=== PATIENT | female | born 1950 | race Caucasian/White ===

== ENCOUNTER 2020-06-22 09:00 | Inpatient (IN) | payer MEDICARE ==
[~2020-06-22] VITALS: Ht 144.8 cm; Wt 96.9 kg
--- NOTE | 2020-06-22 10:59 | NUR ---
NSG NOTE; ADMISSION DIRECT ADMIT TO ROOM 109 AT 1020 VIA W/C ACCOMP BY TRANPORT PERSONNEL ADMITTED TO MED/SURG PUI SCREEN BEFORE ADMISSION TO [facility] FOR BEHAVIOR ISSUES
[2020-06-22 11:07] VITALS: BP 110/67
[2020-06-22] MEDS ORDERED: DENO60DI SQ (12:01)
[2020-06-22] MEDS ORDERED: ERGOCALCIFEROL PO (12:01)
[2020-06-22] MEDS ORDERED: PHEN50TA3 PO (12:01)
[2020-06-22] MEDS ORDERED: METO5TAB4 PO (12:01)
[2020-06-22] MEDS ORDERED: POTA20TA4 PO (12:01)
[2020-06-22] MEDS ORDERED: CALC-98 PO (12:01)
[2020-06-22] MEDS ORDERED: PHEN100C PO (12:01)
[2020-06-22] MEDS ORDERED: POLY2500 PO (12:01)
[2020-06-22] MEDS ORDERED: MULT-505 PO (12:01)
[2020-06-22] MEDS ORDERED: SENN8.6T99 PO (12:01)
[2020-06-22] MEDS ORDERED: MELA1TAB11 PO (12:01)
[2020-06-22] MEDS ORDERED: CETI10TA16 PO (12:01)
[2020-06-22] MEDS ORDERED: BUME1TAB3 PO (12:01)
[2020-06-22] MEDS ORDERED: ACET500T68 PO (12:01)
[2020-06-22] MEDS ORDERED: DOCU100C28 PO (12:01)
[2020-06-22] MEDS ORDERED: FURO40TA4 PO (12:01)
[2020-06-22] MEDS ORDERED: SERT25TA PO (12:01)
[2020-06-22] MEDS ORDERED: OMEG100021 PO (12:01)
[2020-06-22] MEDS ORDERED: ACET325T21 PO (12:01)
[2020-06-22] MEDS ORDERED: LEVO50TA5 PO (12:01)
[2020-06-22] MEDS ORDERED: ASPI81TA59 PO (12:01)
[2020-06-22 15:00] VITALS: BP 126/60
[2020-06-22] MEDS ORDERED: ACETAMINOPHEN 325 MG TABLET PO PRN (16:00)
[2020-06-22 17:29] LABS: BASO % 1 % (0-3); EOS # 0.1 x10^3/uL (0.0-0.7); EOS % 1 % (0-3); HEMATOCRIT 32.8 % (36.0-47.0); HEMOGLOBIN 11.1 g/dL (12.0-15.5); LYMPH # 1.5 x10^3/uL (1.0-4.8); LYMPH % 25 % (24-48); MEAN CORPUSCULAR HEMOGLOBIN 33 pg (25-35); MEAN CORPUSCULAR HGB CONC 34 g/dL (31-37); MEAN CORPUSCULAR VOLUME 98 fL (79-100); MONO # 0.6 x10^3/uL (0.0-1.1); MONO % 10 % (0-9); NEUT # 3.8 x10^3uL (1.8-7.7); NEUT % 64 % (31-73); PLATELET COUNT 250 x10^3/uL (140-400); RED BLOOD COUNT 3.35 x10^6/uL (3.50-5.40); RED CELL DISTRIBUTION WIDTH 13.2 % (11.5-14.5)
[2020-06-22 17:44] LABS: ALBUMIN 2.9 g/dL (3.4-5.0); ALBUMIN/GLOBULIN RATIO 0.8 (1.0-1.7); CREATININE 0.6 mg/dL (0.6-1.0); GFR 99.1; POTASSIUM 3.5 mmol/L (3.5-5.1); TOTAL BILIRUBIN 0.2 mg/dL (0.2-1.0); TOTAL PROTEIN 6.6 g/dL (6.4-8.2)
[2020-06-22 19:40] VITALS: BP 104/65
--- NOTE | 2020-06-22 20:23 | HP ---
ADMIT DATE: 06/22/2020 HISTORY OF PRESENT ILLNESS: The patient is a 70-year-old female patient who has lifelong intellectual disability and has been a patient at [facility] for over 2 years. She has never had any problem with mood or behavior during that time and has only received melatonin to assist with sleep. The only issue which is different for the patient is that she is unable to have frequent contact with her family as she had had in the past due to COVID-19 restriction. She began engaging in behaviors which is new for her. This includes going to other patient's rooms while they are asleep and picking candy out of their chest. It is apparent that the patient knows that this is where the candy is kept and she has been found repeating this behavior several times. She also has been lifting up her shirt and was found buttoning her blouse in front of a male peer. The record also noted that she had had an angry verbal altercation for which they seems to be unprovoked. She attempts to transfer without assistance. She has been also gaining weight and staff are attempting to curb high caloric foods and drinks to reduce this. It appears that she sometimes mimics behavior of other residents, rolling wheelchair into other's rooms, following the resident whatever room it is. She has been recently going off on other residents for no apparent reason. She apparently complies when redirected by staff but then repeats the behavior which has been corrected. Apparently, it was not clear whether these behaviors are done covertly or if she does them openly inviting attention and correction. She has minimal verbal skills related to her intellectual disability, but generally can answer yes and no questions. Because of this newer behavior, she was admitted to [address] [place] [address] in [facility] to be screened for COVID-19 before ultimately she goes up to [facility] for inpatient psychiatric stabilization. The patient herself does not really give any useful information. PAST MEDICAL HISTORY: Significant for epilepsy that is not intractable, has abnormal gait and mobility. Vitamin B12 deficiency. She has acute posthemorrhagic anemia, hypothyroidism, vitamin D deficiency, age-related physical debility, hyperlipidemia, pervasive developmental disorder, seasonal allergic rhinitis, muscle weakness, difficulty walking, cognitive communication deficit, dysarthria and anarthria and nondisplaced subtrochanteric fracture of the left femur, initial encounter. She also has fracture of the lower end of the left femur, acute pain due to trauma and fracture of the unspecified carpal bone, right wrist. The patient has open reduction of hip fracture, status post open reduction and internal fixation. FAMILY HISTORY: Noncontributory. SOCIAL HISTORY: She is a resident at [facility]. She never smoked, does not drink alcohol or use any recreational drugs. ALLERGIES: She has no known drug allergies. MEDICATIONS: She is currently on following medications: She is on cetirizine 5 mg daily, omega-3 fatty acid 1000 mg once a day, aspirin 81 mg once a day, acetaminophen 650 mg every 4 hours, phenytoin 50 mg daily, phenytoin sodium extended release 100 mg twice a day. She is on sertraline, Zoloft 25 mg once a day, calcium carbonate with vitamin D one tablet once a day, potassium chloride 20 mEq twice a day, bumetanide 1 mg daily, furosemide 40 mg twice a day, metolazone 5 mg Tuesday, Tuesday, Tuesday. She is on Colace 100 mg every other day, senna 1 tablet twice a day. She is on levothyroxine sodium 50 mcg once a day, multivitamin 1 tablet once a day, melatonin/pyridoxine one tablet at bedtime. She is also on Prolia 60 mg in 1 mL syringe subcutaneously every 6 month. She is also on MiraLax 17 grams daily. PHYSICAL EXAMINATION: GENERAL: On examining her, she looked somewhat pale, but no jaundice, cyanosis or thyromegaly. No jugular venous distention but marked bilateral lower limb edema. VITAL SIGNS: Her heart rate was 79, blood pressure was 110/67, temperature 97.9, respiratory rate 20, and oxygen saturation was 96% on room air. HEAD, EYES, EARS, NOSE AND THROAT: Showed normocephalic, atraumatic. NECK: Supple. HEART: Showed normal first and second heart sounds. No gallop, rub or murmur. CHEST: Clear to auscultation. No crepitation or rhonchi. ABDOMEN: Distended, soft, nontender. NEUROLOGIC: She has obviously intellectual disabilities. She is unable to keep conversation. She only answers occasionally yes or no answers. All her cranial nerves seem to be grossly intact. She moves upper extremities to much greater extent than lower extremities. She is mostly wheelchair bound. LABORATORY DATA: Her most recent lab work as of 06/20/2020 showed her white cell count to be 6700, hemoglobin 12, hematocrit 36, MCV 99 and platelet count of 264,000 with normal manual differential. Her chemistry showed serum sodium of 141, potassium 3.7, chloride 102, bicarbonate 26, anion gap of 17, BUN 24, creatinine 0.64. Estimated GFR was 98 mL per minute. Her glucose was 131, calcium was 8.9. Total bilirubin 0.15. Her AST, ALT, alkaline phosphatase were normal. Total protein 7.1, albumin 3.4, globulin 3.7. ASSESSMENT AND PLAN: In summary, this is a 70-year-old female patient, a resident at [facility], who is here in [place] of [facility] to be screened for COVID-19 and once it is negative, the patient will be ultimately transferred to [facility] for inpatient psychiatric stabilization given the behavioral changes that started apparently recently. IVETH CHANDLER MD DR: SHERWIN/brendan JOB#: [id number] / [id number]
[2020-06-22] MEDS: ACETAMINOPHEN 500 MG TABLET PO SCH (20:53)
[2020-06-22] MEDS: PHENYTOIN SODIUM EXTENDED 100 MG CAPSULE PO SCH (20:53)
[2020-06-22] MEDS: MELATONIN 3 MG TABLET PO SCH (20:54)
[2020-06-22] MEDS: POTASSIUM CHLORIDE 20 MEQ TABLET.ER. PO SCH (20:54)
[2020-06-22] MEDS: SENNOSIDES 8.6 MG TABLET PO SCH (20:54)
[2020-06-23 05:33] VITALS: BP 134/71
[2020-06-23] MEDS ORDERED: LEVOTHYROXINE 50 MCG TABLET PO SCH (06:00)
[2020-06-23] MEDS: POTASSIUM CHLORIDE 20 MEQ TABLET.ER. PO SCH ×2 (08:56→20:57)
[2020-06-23] MEDS: ACETAMINOPHEN 500 MG TABLET PO SCH ×2 (08:57→20:57)
[2020-06-23] MEDS: SENNOSIDES 8.6 MG TABLET PO SCH ×2 (08:57→20:57)
[2020-06-23] MEDS: FUROSEMIDE 40 MG TABLET PO SCH ×2 (08:57→13:58)
[2020-06-23] MEDS: PHENYTOIN SODIUM EXTENDED 100 MG CAPSULE PO SCH ×2 (08:58→20:56)
[2020-06-23] MEDS ORDERED: PHENYTOIN 50 MG TAB.CHEW PO SCH (09:00)
[2020-06-23] MEDS ORDERED: OMEGA-3 FATTY ACIDS/FISH OIL 1,000 MG CAPSULE. PO SCH (09:00)
[2020-06-23] MEDS ORDERED: MULTIVITAMIN with MINERAL TABLET. PO SCH (09:00)
[2020-06-23] MEDS ORDERED: ASPIRIN CHEWABLE 81 MG TABLET. PO SCH (09:00)
[2020-06-23] MEDS ORDERED: SERTRALINE 25 MG TABLET. PO SCH (09:00)
[2020-06-23] MEDS ORDERED: CALCIUM CARB/VIT D3 500/200 TABLET PO SCH (09:00)
[2020-06-23] MEDS ORDERED: CETIRIZINE HCL 10 MG TABLET PO SCH (09:00)
[2020-06-23] MEDS ORDERED: POLYETHYLENE GLYCOL 3350 17 GM PACKET. PO SCH (09:00)
[2020-06-23 10:51] VITALS: BP 125/67
[2020-06-23 15:00] VITALS: BP 128/65
[2020-06-23 15:11] LABS: THYROID STIM HORMONE (TSH) 1.825 uIU/mL (0.358-3.740)
[2020-06-23] MEDS ORDERED: metOLazone 5 MG TABLET PO SCH (16:00)
--- NOTE | 2020-06-23 19:12 | PN ---
DATE: 06/23/2020 SUBJECTIVE: The patient is resting, slightly propped up in bed, eating her lunch, in no apparent distress. She is mostly nonverbal and has a lifelong intellectual disability, who was basically admitted to [address] [place] [address] to be screened for COVID-19 before she goes to [facility] for inpatient psychiatric stabilization. She has been displaying abnormal behavior, which are new including going to other patient's rooms while they are asleep and picking the candy out of their drawers. She has been also lifting up her shirt and was found buttoning her blouse in front of a male peer. She has reportedly being angry with verbal altercation for which there seems no provocation. She has been attempting to transfer without assistance. She also has been gaining weight and staff are attempting to curb high caloric foods and drinks to reduce this. PHYSICAL EXAMINATION: GENERAL: When I saw her today, she was resting slightly propped up in bed, in no apparent distress, somewhat pale. No jaundice, cyanosis or thyromegaly. No jugular venous distention. No limb edema. VITAL SIGNS: Her heart rate was 66, blood pressure was 134/71, temperature was 97.5, respiratory rate 20, and oxygen saturation was 100% on room air. HEAD, EYES, EARS, NOSE AND THROAT: Showed normocephalic, atraumatic. NECK: Supple. HEART: Showed normal first and second heart sounds. No gallop, rub or murmur. CHEST: Clear to auscultation. No crepitation or rhonchi. ABDOMEN: Distended, soft, nontender. NEUROLOGIC: She has lifelong intellectual disability; however, all her cranial nerves are intact. She moves upper extremities to much good extent than lower extremities, mostly bedbound. LABORATORY DATA: Her lab work showed a white cell count of 6000, hemoglobin 11, hematocrit 33, MCV 98, and platelet count 250,000 with normal manual differential. Her chemistry showed a serum sodium of 141, potassium 3.5, chloride 103, bicarbonate was 33, anion gap of 5, BUN 21, creatinine 0.6, estimated GFR was 99 mL per minute. Her glucose was 100, calcium was 9. Total bilirubin, AST, ALT, alkaline phosphatase were normal. Total protein 6.6, albumin 2.9. Her D-dimer was 0.55 mg/dL. ASSESSMENT AND PLAN: In summary, this is a 70-year-old female patient, resident at [facility], who is here in [facility] [place] of [facility] to be screened for COVID-19. She was swabbed and the results of which is still pending at the time of this dictation. Once the test becomes available and she is negative, she will be transferred to [facility] for inpatient psychiatric stabilization. IVETH CHANDLER MD DR: SHERWIN/brendan JOB#: [id number] / [id number]
[2020-06-23] MEDS ORDERED: HYDROcodone/APAP 5/325MG 1 TAB TABLET PO PRN (19:45)
[2020-06-23 20:03] VITALS: BP 133/72
[2020-06-23] MEDS: MELATONIN 3 MG TABLET PO SCH (20:57)
[2020-06-24 00:07] LABS: HEMOGLOBIN A1C 5.3 % (4.8-5.6)
--- NOTE | 2020-06-24 06:43 | EKG ---
[address] [address] Test Date: 2020-06-23 Test Time: 22:02:01 Pat Name: LEROY BAHENA Department: Room: 109 A Gender: F [employer] Lead: : 1950 Requested By: IVETH CHANDLER Order Number: [id number] Reading MD: Measurements Intervals [place] Rate: 67 P: 60 IA: 158 QRS: 1 QRSD: 108 T: 21 QT: 402 QTc: 428 Interpretive Statements SINUS RHYTHM R-S TRANSITION ZONE IN V LEADS DISPLACED TO THE RIGHT RVH WITH REPOLARIZATION ABNORMALITY QRS(T) CONTOUR ABNORMALITY CONSIDER INFERIOR MYOCARDIAL DAMAGE ABNORMAL ECG RI6.01 No previous ECG available for comparison
[2020-06-24] MEDS ORDERED: DOCUSATE SODIUM 100 MG CAPSULE PO SCH (09:00)
[2020-06-29] MEDS ORDERED: CHOLECALCIFEROL (VITAMIN D3) 50,000 UNIT CAPSULE PO SCH (09:00)
== END 2020-06-23 22:35 | DRG 884 ==
LOC: 1 SOUTH 09:00
PROVIDERS: ADMIT Internal Medicine; ATTEND Internal Medicine
DX: F79 Unspecified intellectual disabilities (principal); D62 Acute posthemorrhagic anemia; E03.9 Hypothyroidism, unspecified; F84.9 Pervasive developmental disorder, unspecified; E78.5 Hyperlipidemia, unspecified; R54 Age-related physical debility; Z20.828 Contact with and (suspected) exposure to other viral communicable diseases; Z99.3 Dependence on wheelchair; Z74.01 Bed confinement status; E55.9 Vitamin D deficiency, unspecified; E53.8 Deficiency of other specified B group vitamins; J30.2 Other seasonal allergic rhinitis
CPT/HCPCS: 36415; 80053; 80061; 82306; 82607; 83036; 84443; 85025; 85379; 86780; 93005; U0003

== ENCOUNTER 2020-06-23 23:25 | Inpatient (IN) | payer MEDICARE ==
[~2020-06-23] VITALS: Ht 147.3 cm; Wt 93.1 kg
--- NOTE | 2020-06-23 23:00 | NUR ---
Admission Note with Justification for Admission to [facility] Patient admitted to [facility] for protective oversight for emergency stabilization of acute psychiatric crisis. Pt admitted from: [facility] [place] Mode of arrival: Bed with [facility] staff Accompanied By: [facility] Staff Precipitating behaviors that initiated intake and admission: Aggressive behaviors at SNF Description of failure of out patient attempts at stabilization in previous setting list behavior and medication trials: Redirection, medication changes Behaviors and assessment findings upon admission: Responds to name. Grunts and yells with cares Plan: Admit for protective oversight for adjustment and stabilization of medications, behaviors and mood. Intense treatment regimen including groups, medication adjustments, therapy, consistent regimen for ADL's, self care, and sleep hygiene. Daily monitoring by Inpatient staff, Psychiatry, and Medical Physician.
--- NOTE | 2020-06-23 23:10 | NUR ---
Straight cath done for UA and specimen to lab, pt tolerated well.
[~2020-06-23 23:25] MED LIST: ACET325T21 PO; ACET500T68 PO; ASPI81TA59 PO; BUME1TAB3 PO; CALC-98 PO; CETI10TA16 PO; DENO60DI SQ; DOCU100C28 PO; ERGOCALCIFEROL PO; FURO40TA4 PO; LEVO50TA5 PO; MELA1TAB11 PO; METO5TAB4 PO; MULT-505 PO; OMEG100021 PO; PHEN100C PO; PHEN50TA3 PO; POLY2500 PO; POTA20TA4 PO; SENN8.6T99 PO; SERT25TA PO
[2020-06-23 23:40] VITALS: BP 121/66
[2020-06-23 23:47] LABS: CLARITY,URINE HAZY; COLOR,URINE YELLOW
[2020-06-23 23:50] LABS: BACTERIA,URINE FEW /HPF (0-FEW); BILIRUBIN,URINE NEG (NEG); GLUCOSE,URINE NEG (NEG); NITRITE,URINE NEG (NEG); RBC,URINE OCC /HPF (0-2); SQUAMOUS EPITHELIAL CELL,UR MANY /LPF; UROBILINOGEN,URINE 0.2 mg/dL (0.2 mg/dL); WBC,URINE OCC /HPF (0-4)
[2020-06-24] MEDS ORDERED: MAG HYDROX/AL HYDROX/SIMETH 30 ML ORAL.SUSP PO PRN (00:30)
[2020-06-24] MEDS ORDERED: ACETAMINOPHEN 325 MG TABLET PO PRN (00:30)
[2020-06-24] MEDS ORDERED: MAGNESIUM HYDROXIDE 2,400 MG/30 ML ORAL.SUSP. PO PRN (00:30)
[2020-06-24] MEDS: LEVOTHYROXINE 50 MCG TABLET PO SCH (06:24)
[2020-06-24] MEDS: SENNOSIDES 8.6 MG TABLET PO SCH ×2 (09:00→20:09)
[2020-06-24] MEDS: CETIRIZINE HCL 10 MG TABLET PO SCH (09:00)
[2020-06-24] MEDS: FUROSEMIDE 40 MG TABLET PO SCH ×2 (09:00→16:23)
[2020-06-24] MEDS: BUMETANIDE 1 MG TABLET PO SCH (09:00)
[2020-06-24] MEDS: POLYETHYLENE GLYCOL 3350 17 GM PACKET. PO SCH (09:00)
--- NOTE | 2020-06-24 10:30 | NUR ---
ACTIVITY THERAPY ASSESSMENT Completed based on observation and attempted interview. Pt. goes by "Cate Shukla" but has difficulty engaging in conversation: barely responded to yes/ no questions or even her name. She often grunts or yells out which can be disruptive to others and she struggles to keep attention/ focus which may improve in a more quiet and controlled setting. Pt. wanders the unit by propelling herself in her wheelchair and she struggles to wear her mask correctly. Pt. finds alternative ways of communicating her needs/ preference/ desires with motions and grunts. Initial goal aimed to increase engagement and focus/ attention: Pt. will participate in at least one individual Activity Therapy session for at least ten minutes, before discharge. Addendum: 06/26/20 at 1019 by RENETTA BERMUDEZ ACT Goal changed 06/26: Pt. will participate in at least one individual Activity Therapy session for at least ten minutes, fully, before discharge.
[2020-06-24] MEDS: ACETAMINOPHEN 500 MG TABLET PO SCH ×2 (10:49→20:09)
[2020-06-24] MEDS: PHENYTOIN 50 MG TAB.CHEW PO SCH (10:49)
[2020-06-24] MEDS: DOCUSATE SODIUM 100 MG CAPSULE PO SCH (10:49)
[2020-06-24] MEDS: CHOLECALCIFEROL (VITAMIN D3) 50,000 UNIT CAPSULE PO SCH (10:50)
[2020-06-24] MEDS: MULTIVITAMIN with MINERAL TABLET. PO SCH (10:50)
[2020-06-24] MEDS: CALCIUM CARB/VIT D3 500/200 TABLET PO SCH (10:50)
[2020-06-24] MEDS: PHENYTOIN SODIUM EXTENDED 100 MG CAPSULE PO SCH ×2 (10:50→20:09)
[2020-06-24] MEDS: ASPIRIN CHEWABLE 81 MG TABLET. PO SCH (10:50)
[2020-06-24] MEDS: SERTRALINE 25 MG TABLET. PO SCH (10:50)
[2020-06-24] MEDS: OMEGA-3 FATTY ACIDS/FISH OIL 1,000 MG CAPSULE. PO SCH (10:50)
[2020-06-24] MEDS: POTASSIUM CHLORIDE 20 MEQ TABLET.ER. PO SCH ×2 (10:51→20:09)
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
[2020-06-24 16:01] VITALS: BP 147/83
--- NOTE | 2020-06-24 20:52 | PDOC ---
Exam Note: Brooks Note: Please also refer to the separate dictated note~for this date of service dictated separately.~Patient seen individually. Discussed the patient with Nursing staff reviewed the chart.~Reviewed interim history and current functioning. Reviewed vital signs,~Labs/ Radiology~and current medications noted below. Continue current treatment with the changes noted in the dictated addendum note Assessment: Vital Signs/I&O: Vital Signs Date Time Temp Pulse Resp B/P (MAP) Pulse Ox O2 Delivery O2 Flow Rate FiO2 06/24/20 16:01 97.9 72 20 147/83 (104) 100 06/23/20 23:40 Room Air Labs: Laboratory Tests Test 06/23/20 23:20 06/24/20 06:47 Urine Collection Type U cath Urine Color Yellow Urine Clarity Hazy Urine pH 8.0 Urine Specific Powell 1.020 Urine Protein Neg (NEG-TRACE) Urine Glucose (UA) Neg mg/dL (NEG) Urine Ketones (Stick) Neg mg/dL (NEG) Urine Blood Small (NEG) Urine Nitrite Neg (NEG) Urine Bilirubin Neg (NEG) Urine Urobilinogen Dipstick 0.2 mg/dL (0.2 mg/dL) Urine Leukocyte Esterase Trace (NEG) Urine RBC Occ /HPF (0-2) Urine WBC Occ /HPF (0-4) Urine Squamous Epithelial Cells Many /LPF Urine Bacteria Few /HPF (0-FEW) D-Dimer (Arlene) 0.58 mg/L (0.00-0.50) H Iron Level 92 ug/dL (50-170) Total Iron Binding Capacity 229 ug/dL (250-450) L Iron Saturation 40 % (15-34) H Vitamin B12 Level 325 pg/mL (247-911) 25-Hydroxy Vitamin D Total 58.8 ng/mL (30-100) Treponema pallidum Antibody Nonreactive (Nonreactive) Current Medications: Meds: Current Medications Medications (Trade) Dose Ordered Sig/Kassidy Route PRN Reason Start Time Stop Time Status Last Admin Dose Admin Acetaminophen (Tylenol) 500 mg BID PO 06/24/20 09:00 06/24/20 20:09 Aspirin (Aspirin Chewable) 81 mg DAILY PO 06/24/20 09:00 06/24/20 10:50 Bumetanide (Bumex) 1 mg DAILY PO 06/24/20 09:00 06/24/20 09:00 Cetirizine HCl (ZyrTEC) 5 mg DAILY PO 06/24/20 09:00 06/24/20 09:00 Docusate Sodium (Colace) 100 mg QODAY PO 06/24/20 09:00 06/24/20 10:49 Furosemide (Lasix) 40 mg BID92 PO 06/24/20 09:00 06/24/20 16:23 Levothyroxine Sodium (Synthroid) 50 mcg DAILY06 PO 06/24/20 06:00 06/24/20 06:24 Phenytoin Sodium (Dilantin) 50 mg DAILY PO 06/24/20 09:00 06/24/20 10:49 Phenytoin Sodium (Dilantin) 100 mg BID PO 06/24/20 09:00 06/24/20 20:09 Potassium Chloride (Klor-Con) 20 meq BID PO 06/24/20 09:00 06/24/20 20:09 Sennosides (Senna) 8.6 mg BID PO 06/24/20 09:00 06/24/20 20:09 Sertraline HCl (Zoloft) 25 mg DAILY PO 06/24/20 09:00 06/24/20 10:50 Calcium/Vitamin D (Oscal D 500mg/ 200uts) 1 tab DAILY PO 06/24/20 09:00 06/24/20 10:50 Multivitamins/ Calcium (Thera-M Plus) 1 tab DAILY PO 06/24/20 09:00 06/24/20 10:50 Fish Oil (Fish Oil) 1,000 mg DAILY PO 06/24/20 09:00 06/24/20 10:50 Polyethylene Glycol (miraLAX) 17 gm DAILY PO 06/24/20 09:00 06/24/20 09:00 Vitamin D (Vitamin D3) 50,000 unit WEEKLY PO 06/24/20 09:00 06/24/20 10:50 I have reviewed the current psychotropics carefully including drug interactions. Risk benefit ratio favors no change other than as noted in my dictated progress note. Diagnosis: Problems: (1) Person under investigation for COVID-19 (2) Impulse control disorder, unspecified GAMALIEL MALLOY MD Jun 24, 2020 20:52
--- NOTE | 2020-06-24 23:07 | NUR ---
Nursing Note The patient was drowsy, withdrawn and compliant this shift. The patient was unable to answer assessment questions but responds to name. The patient took her medication whole. The patient opened her eyes and made some garbled noises but was unable to meaningfully interact with this nurse during her assessment.
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
[2020-06-25 05:44] VITALS: BP 127/72
[2020-06-25] MEDS: LEVOTHYROXINE 50 MCG TABLET PO SCH (05:55)
[2020-06-25 07:01] LABS: BASO # 0.1 x10^3/uL (0.0-0.2); BASO % 1 % (0-3); EOS # 0.1 x10^3/uL (0.0-0.7); EOS % 2 % (0-3); HEMATOCRIT 31.2 % (36.0-47.0); HEMOGLOBIN 10.4 g/dL (12.0-15.5); LYMPH # 1.3 x10^3/uL (1.0-4.8); LYMPH % 29 % (24-48); MEAN CORPUSCULAR HEMOGLOBIN 33 pg (25-35); MEAN CORPUSCULAR HGB CONC 33 g/dL (31-37); MEAN CORPUSCULAR VOLUME 99 fL (79-100); MONO # 0.3 x10^3/uL (0.0-1.1); MONO % 8 % (0-9); NEUT # 2.6 x10^3uL (1.8-7.7); NEUT % 59 % (31-73); PLATELET COUNT 242 x10^3/uL (140-400); RED BLOOD COUNT 3.16 x10^6/uL (3.50-5.40); WHITE BLOOD COUNT 4.4 x10^3/uL (4.0-11.0)
[2020-06-25 07:12] LABS: ALBUMIN 2.7 g/dL (3.4-5.0); ALBUMIN/GLOBULIN RATIO 0.7 (1.0-1.7); CALCIUM 7.6 mg/dL (8.5-10.1); CREATININE 0.5 mg/dL (0.6-1.0); GFR 122.3; MAGNESIUM 2.3 mg/dL (1.8-2.4); PHENY 6.1 mcg/mL (10.0-20.0); POTASSIUM 3.4 mmol/L (3.5-5.1); TOTAL BILIRUBIN 0.2 mg/dL (0.2-1.0); TOTAL PROTEIN 6.4 g/dL (6.4-8.2)
[2020-06-25] MEDS: POLYETHYLENE GLYCOL 3350 17 GM PACKET. PO SCH (09:09)
[2020-06-25] MEDS: POTASSIUM CHLORIDE 20 MEQ TABLET.ER. PO SCH ×2 (09:09→19:38)
[2020-06-25] MEDS: PHENYTOIN 50 MG TAB.CHEW PO SCH (09:09)
[2020-06-25] MEDS: BUMETANIDE 1 MG TABLET PO SCH (09:10)
[2020-06-25] MEDS: OMEGA-3 FATTY ACIDS/FISH OIL 1,000 MG CAPSULE. PO SCH (09:10)
[2020-06-25] MEDS: MULTIVITAMIN with MINERAL TABLET. PO SCH (09:10)
[2020-06-25] MEDS: CALCIUM CARB/VIT D3 500/200 TABLET PO SCH (09:10)
[2020-06-25] MEDS: ACETAMINOPHEN 500 MG TABLET PO SCH ×2 (09:10→19:38)
[2020-06-25] MEDS: CETIRIZINE HCL 10 MG TABLET PO SCH (09:10)
[2020-06-25] MEDS: ASPIRIN CHEWABLE 81 MG TABLET. PO SCH (09:10)
[2020-06-25] MEDS: PHENYTOIN SODIUM EXTENDED 100 MG CAPSULE PO SCH ×2 (09:10→19:38)
[2020-06-25] MEDS: SERTRALINE 25 MG TABLET. PO SCH (09:11)
[2020-06-25] MEDS: SENNOSIDES 8.6 MG TABLET PO SCH ×2 (09:11→19:38)
[2020-06-25] MEDS: FUROSEMIDE 40 MG TABLET PO SCH ×2 (09:11→14:25)
[2020-06-25 15:42] VITALS: BP 147/70
--- NOTE | 2020-06-25 16:18 | NUR ---
Nursing note: Pt has been pleasant, compliant with meds whole and cooperative this shift. Pt does not appear to be in any pain or discomfort. She does not verbalize, only grunts and points. Occasionally she has been heard counting from 1-10, but will not answer questions when asked. She has been wheeling herself around the unit for most of the shift. She is currently resting quietly in bed. Will continue to monitor.
[2020-06-25] MEDS: metOLazone 5 MG TABLET PO SCH (16:54)
[2020-06-25 21:11] LABS: HEMOGLOBIN A1C 5.3 % (4.8-5.6)
--- NOTE | 2020-06-25 21:46 | NUR ---
Nursing Note: Pt up in w/c, propelling in her room at shift change. Pt calm, mostly non-verbal- grunting and pointing in order to make her needs known, responding to name. Pt cooperative with assessment and compliant with medications administered whole. No agitation or aggression noted thus far this shift.
--- NOTE | 2020-06-25 21:56 | PDOC ---
Exam Note: Brooks Note: Please also refer to the separate dictated note~for this date of service dictated separately.~Patient seen individually. Discussed the patient with Nursing staff reviewed the chart.~Reviewed interim history and current functioning. Reviewed vital signs,~Labs/ Radiology~and current medications noted below. Continue current treatment with the changes noted in the dictated addendum note Assessment: Vital Signs/I&O: Vital Signs Date Time Temp Pulse Resp B/P (MAP) Pulse Ox O2 Delivery O2 Flow Rate FiO2 06/25/20 15:42 97.0 70 18 147/70 (95) 92 06/23/20 23:40 Room Air I & O 06/24/20 06/24/20 06/25/20 15:00 23:00 07:00 Intake Total 720 ml 340 ml Balance 720 ml 340 ml Labs: Laboratory Tests Test 06/25/20 06:40 White Blood Count 4.4 x10^3/uL (4.0-11.0) Red Blood Count 3.16 x10^6/uL (3.50-5.40) L Hemoglobin 10.4 g/dL (12.0-15.5) L Hematocrit 31.2 % (36.0-47.0) L Mean Corpuscular Volume 99 fL (79-100) Mean Corpuscular Hemoglobin 33 pg (25-35) Mean Corpuscular Hemoglobin Concent 33 g/dL (31-37) Red Cell Distribution Width 13.0 % (11.5-14.5) Platelet Count 242 x10^3/uL (140-400) Neutrophils (%) (Auto) 59 % (31-73) Lymphocytes (%) (Auto) 29 % (24-48) Monocytes (%) (Auto) 8 % (0-9) Eosinophils (%) (Auto) 2 % (0-3) Basophils (%) (Auto) 1 % (0-3) Neutrophils # (Auto) 2.6 x10^3uL (1.8-7.7) Lymphocytes # (Auto) 1.3 x10^3/uL (1.0-4.8) Monocytes # (Auto) 0.3 x10^3/uL (0.0-1.1) Eosinophils # (Auto) 0.1 x10^3/uL (0.0-0.7) Basophils # (Auto) 0.1 x10^3/uL (0.0-0.2) Sodium Level 140 mmol/L (136-145) Potassium Level 3.4 mmol/L (3.5-5.1) L Chloride Level 103 mmol/L (98-107) Carbon Dioxide Level 30 mmol/L (21-32) Anion Gap 7 (6-14) Blood Urea Nitrogen 17 mg/dL (7-20) Creatinine 0.5 mg/dL (0.6-1.0) L Estimated GFR (Cockcroft-Gault) 122.3 BUN/Creatinine Ratio 34 (6-20) H Glucose Level 96 mg/dL (70-99) Hemoglobin A1c 5.3 % (4.8-5.6) Calcium Level 7.6 mg/dL (8.5-10.1) L Magnesium Level 2.3 mg/dL (1.8-2.4) Total Bilirubin 0.2 mg/dL (0.2-1.0) Aspartate Amino Transferase (AST) 18 U/L (15-37) Alanine Aminotransferase (ALT) 24 U/L (14-59) Alkaline Phosphatase 66 U/L (46-116) Total Protein 6.4 g/dL (6.4-8.2) Albumin 2.7 g/dL (3.4-5.0) L Albumin/Globulin Ratio 0.7 (1.0-1.7) L Phenytoin (Dilantin) Level 6.1 mcg/mL (10.0-20.0) L Phenytoin Last Dose Date 06/24/20 Phenytoin Last Dose Time 2014 Current Medications: Meds: Current Medications Medications (Trade) Dose Ordered Sig/Kassidy Route PRN Reason Start Time Stop Time Status Last Admin Dose Admin Metolazone (Zaroxolyn) 5 mg QMWF PO 06/25/20 16:00 06/25/20 16:54 I have reviewed the current psychotropics carefully including drug interactions. Risk benefit ratio favors no change other than as noted in my dictated progress note. Diagnosis: Problems: (1) Major neurocognitive disorder, due to vascular disease, with behavioral disturbance, mild (2) Dementia in Alzheimer's disease with delusions (3) Dementia in Alzheimer's disease with depression (4) Dementia, vascular, with depression (5) Dementia, vascular, with delusions (6) MDD (major depressive disorder) (7) Anxiety disorder, unspecified GAMALIEL MALLOY MD Jun 25, 2020 21:56
[2020-06-26] MEDS: ACETAMINOPHEN 325 MG TABLET PO PRN (04:28)
[2020-06-26] MEDS: LEVOTHYROXINE 50 MCG TABLET PO SCH (04:28)
[2020-06-26] MEDS: METHYL SALICYLATE/MENTHOL TOPICAL OINTMENT 57GM TUBE. TP PRN (04:28)
[2020-06-26 06:08] VITALS: BP 120/65
[2020-06-26] MEDS: OMEGA-3 FATTY ACIDS/FISH OIL 1,000 MG CAPSULE. PO SCH (08:52)
[2020-06-26] MEDS: PHENYTOIN 50 MG TAB.CHEW PO SCH (08:52)
[2020-06-26] MEDS: MULTIVITAMIN with MINERAL TABLET. PO SCH (08:52)
[2020-06-26] MEDS: ASPIRIN CHEWABLE 81 MG TABLET. PO SCH (08:52)
[2020-06-26] MEDS: FUROSEMIDE 40 MG TABLET PO SCH ×2 (08:53→14:00)
[2020-06-26] MEDS: POTASSIUM CHLORIDE 20 MEQ TABLET.ER. PO SCH ×2 (08:53→19:50)
[2020-06-26] MEDS: CETIRIZINE HCL 10 MG TABLET PO SCH (08:53)
[2020-06-26] MEDS: ACETAMINOPHEN 500 MG TABLET PO SCH ×2 (08:53→19:50)
[2020-06-26] MEDS: PHENYTOIN SODIUM EXTENDED 100 MG CAPSULE PO SCH ×2 (08:53→19:50)
[2020-06-26] MEDS: CALCIUM CARB/VIT D3 500/200 TABLET PO SCH (08:53)
[2020-06-26] MEDS: SENNOSIDES 8.6 MG TABLET PO SCH ×2 (08:53→19:49)
[2020-06-26] MEDS: POLYETHYLENE GLYCOL 3350 17 GM PACKET. PO SCH (08:54)
[2020-06-26] MEDS: SERTRALINE 50 MG TABLET. PO SCH (08:54)
[2020-06-26] MEDS: BUMETANIDE 1 MG TABLET PO SCH (08:55)
[2020-06-26] MEDS: DOCUSATE SODIUM 100 MG CAPSULE PO SCH (09:00)
--- NOTE | 2020-06-26 10:17 | NUR ---
WEEKLY ACTIVITY THERAPY NOTE Date of Admission: 06/23 Date of AT Assessment: 06/24 Precipitating behaviors that initiated intake and admission: Aggressive behaviors at [facility] Goal aimed: to increase engagement and focus/ attention Initial Goal: Pt. will participate in at least one individual Activity Therapy session for at least ten minutes, before discharge. Weekly progress towards goal: achieved 07/04 Group participation level: minimal Weekly highlights: Behaviors observed: wanders, yells/ grunts often, enjoys water, easily distracted as she frequently pointed out the window, at her wrist band, then AT during 1:1. Pt was unable to engage in the [employer] activity. Pt was unable to communicate with AT but was pleasant. Plan: change goal to: Pt. will participate in at least one individual Activity Therapy session for at least ten minutes, fully, before discharge. Beneficial adaptations:
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
[2020-06-26 16:21] VITALS: BP 119/71
--- NOTE | 2020-06-26 16:39 | NUR ---
Patient in room eating breakfast at time of assessment. Patient is alert but very confused and forgetful. Unable to assess patient due to patient inability to speak. She grunts and moans mostly. She can communicate at times but unable to answer assessment questions. Patient has no complaints to note and no further concerns today.
--- NOTE | 2020-06-26 21:01 | PDOC ---
Exam Note: Brooks Note: Please also refer to the separate dictated note~for this date of service dictated separately.~Patient seen individually. Discussed the patient with Nursing staff reviewed the chart.~Reviewed interim history and current functioning. Reviewed vital signs,~Labs/ Radiology~and current medications noted below. Continue current treatment with the changes noted in the dictated addendum note Assessment: Vital Signs/I&O: Vital Signs Date Time Temp Pulse Resp B/P (MAP) Pulse Ox O2 Delivery O2 Flow Rate FiO2 06/26/20 16:21 97.9 73 119/71 (87) 96 06/26/20 06:08 16 Room Air I & O 06/25/20 06/25/20 06/26/20 15:00 23:00 07:00 Intake Total 360 ml 460 ml Balance 360 ml 460 ml Current Medications: Meds: Current Medications Medications (Trade) Dose Ordered Sig/Kassidy Route PRN Reason Start Time Stop Time Status Last Admin Dose Admin Sertraline HCl (Zoloft) 50 mg DAILY PO 06/26/20 09:00 06/26/20 08:54 I have reviewed the current psychotropics carefully including drug interactions. Risk benefit ratio favors no change other than as noted in my dictated progress note. Diagnosis: Problems: (1) Impulse control disorder, unspecified (2) Anxiety disorder, unspecified (3) Dementia, vascular, with depression (4) Dementia, vascular, with delusions (5) MDD (major depressive disorder) (6) Dementia in Alzheimer's disease with depression (7) Dementia in Alzheimer's disease with delusions (8) Major neurocognitive disorder, due to vascular disease, with behavioral disturbance, mild GAMALIEL MALLOY MD Jun 26, 2020 21:01
--- NOTE | 2020-06-26 22:08 | NUR ---
Nursing Note: Pt up in w/c, propelling in the hallway at shift change. Pt calm, mostly non-verbal- grunting and pointing in order to make her needs known, responding to name. Pt cooperative with assessment and compliant with medications administered whole. No agitation or aggression noted thus far this shift.
[2020-06-27] MEDS: ACETAMINOPHEN 325 MG TABLET PO PRN (00:49)
[2020-06-27] MEDS: METHYL SALICYLATE/MENTHOL TOPICAL OINTMENT 57GM TUBE. TP PRN (00:49)
[2020-06-27] MEDS: LEVOTHYROXINE 50 MCG TABLET PO SCH (05:31)
[2020-06-27 05:34] VITALS: BP 113/63
[2020-06-27 06:45] LABS: BASO # 0.1 x10^3/uL (0.0-0.2); BASO % 1 % (0-3); EOS # 0.1 x10^3/uL (0.0-0.7); EOS % 2 % (0-3); HEMATOCRIT 34.8 % (36.0-47.0); HEMOGLOBIN 11.5 g/dL (12.0-15.5); LYMPH # 1.5 x10^3/uL (1.0-4.8); LYMPH % 30 % (24-48); MEAN CORPUSCULAR HEMOGLOBIN 33 pg (25-35); MEAN CORPUSCULAR HGB CONC 33 g/dL (31-37); MEAN CORPUSCULAR VOLUME 99 fL (79-100); MONO # 0.4 x10^3/uL (0.0-1.1); MONO % 8 % (0-9); NEUT # 2.9 x10^3uL (1.8-7.7); NEUT % 60 % (31-73); PLATELET COUNT 274 x10^3/uL (140-400); RED BLOOD COUNT 3.51 x10^6/uL (3.50-5.40); RED CELL DISTRIBUTION WIDTH 13.3 % (11.5-14.5); WHITE BLOOD COUNT 4.9 x10^3/uL (4.0-11.0)
[2020-06-27 07:24] LABS: ALBUMIN/GLOBULIN RATIO 0.7 (1.0-1.7); CALCIUM 8.5 mg/dL (8.5-10.1); CREATININE 0.7 mg/dL (0.6-1.0); TOTAL BILIRUBIN 0.2 mg/dL (0.2-1.0); TOTAL PROTEIN 7.1 g/dL (6.4-8.2)
[2020-06-27] MEDS: OMEGA-3 FATTY ACIDS/FISH OIL 1,000 MG CAPSULE. PO SCH (08:38)
[2020-06-27] MEDS: ASPIRIN CHEWABLE 81 MG TABLET. PO SCH (08:38)
[2020-06-27] MEDS: MULTIVITAMIN with MINERAL TABLET. PO SCH (08:38)
[2020-06-27] MEDS: ACETAMINOPHEN 500 MG TABLET PO SCH ×2 (08:38→20:21)
[2020-06-27] MEDS: SERTRALINE 50 MG TABLET. PO SCH (08:38)
[2020-06-27] MEDS: metOLazone 5 MG TABLET PO SCH (08:38)
[2020-06-27] MEDS: FUROSEMIDE 40 MG TABLET PO SCH ×2 (08:39→14:59)
[2020-06-27] MEDS: CETIRIZINE HCL 10 MG TABLET PO SCH (08:39)
[2020-06-27] MEDS: PHENYTOIN SODIUM EXTENDED 100 MG CAPSULE PO SCH (08:39)
[2020-06-27] MEDS: PHENYTOIN 50 MG TAB.CHEW PO SCH (08:39)
[2020-06-27] MEDS: POTASSIUM CHLORIDE 20 MEQ TABLET.ER. PO SCH ×2 (08:40→20:21)
[2020-06-27] MEDS: SENNOSIDES 8.6 MG TABLET PO SCH ×2 (08:40→20:21)
[2020-06-27] MEDS: CALCIUM CARB/VIT D3 500/200 TABLET PO SCH (08:40)
[2020-06-27] MEDS: POLYETHYLENE GLYCOL 3350 17 GM PACKET. PO SCH (08:40)
[2020-06-27] MEDS: BUMETANIDE 1 MG TABLET PO SCH (08:41)
--- NOTE | 2020-06-27 13:43 | NUR ---
Patient in wheelchair going up and down hallways a shift change. Patient is cooperative and calm. Does not talk or respond to questions. Mostly grunts. Alert with no complaints. Patient takes medications whole with no issues. No further concerns at this time.
[2020-06-27 16:21] VITALS: BP 149/88
--- NOTE | 2020-06-27 20:03 | CONS ---
DATE OF CONSULTATION: REFERRING PHYSICIAN: Dr. Sean Celeste REASON FOR CONSULTATION: History of seizure with current subtherapeutic level of phenytoin. HISTORY OF PRESENT ILLNESS: This is a 70-year-old right-handed female who was admitted on 06/23/2020 on account of increased agitation of one week duration. Apparently, the patient had a longstanding history of seizure disorder since freedom of information officer and according to chart, it was related to possible anoxic brain injury at . It is difficult to clarify the course of her seizure or when was last seizure. However, the patient has been on phenytoin and total dose was 250 mg a day. The last phenytoin level was 6.1, which is supratherapeutic; however, the patient has not had any obvious breakthrough seizures since admission and it is very difficult to get more information from the patient or from the family's. PAST MEDICAL HISTORY: Significant for possible anoxic brain injuries since childhood, hyperlipidemia, congestive heart failure, seizure disorder, hypothyroidism, frequent falls and short-term memory loss, weakness and difficulty to walk and she has been confined to a wheelchair for ambulation, dementia, anemia and possible vitamin B12 deficiency. PAST SURGICAL HISTORY: Unknown. FAMILY HISTORY: Noncontributory. SOCIAL HISTORY: There is no history of smoking, alcohol drinking, or illicit drug use. She is a resident at [facility]. CURRENT HOME MEDICATIONS: Includes sertraline 50 mg daily, vitamin D3 25 units weekly p.o., Zaroxolyn 5 mg p.o. Tuesday, Tuesday and Tuesday, fish oil, multivitamins and calcium, potassium chloride 20 mEq twice daily, phenytoin 100 mg b.i.d. and phenytoin 50 mg daily, furosemide 40 mg b.i.d., cetirizine 5 mg daily, aspirin 81 mg daily, levothyroxine 50 mcg daily, melatonin 6 mg at night. ALLERGIES: No known drug allergies. REVIEW OF SYSTEMS: A 14-point review of system was performed as mentioned above in history of present illness, otherwise unremarkable. PHYSICAL EXAMINATION: GENERAL: Obese female, not in acute distress. She weighs 96.9 kilos. VITAL SIGNS: Blood pressure 113/63, respiratory rate 16, pulse is 69 and regular, oxygen saturation 94% on room air. HEENT: Normocephalic, atraumatic, otherwise unremarkable. NECK: Supple. Negative for carotid bruit, lymphadenopathy or thyromegaly. LUNGS: Clear to A and P. CARDIOVASCULAR: Regular rate and rhythm, normal S1, S2. ABDOMEN: Soft. Bowel sounds positive. EXTREMITIES: Negative for cyanosis, clubbing or edema. NEUROLOGICAL EXAM: Mental Status: The patient is alert, sitting in a wheelchair. She does not speak, but she does follow 1-step commands. Memory, judgment, and abstracting thinking offer to evaluate. The patient shrugs her shoulders and moves her upper and lower extremities equally. The strength is 4/5 throughout. Sensory examination revealed normal pinprick, light touch, vibratory and position senses. Deep tendon reflexes were symmetric and hypoactive with absent Achilles responses. Gait: The patient is unable to stand or walk. LABORATORY DATA: CBC revealed white blood cells of 4.9 thousand; hemoglobin 11.5; hematocrit 34.8; platelet count 274,000. Chemistry revealed sodium of 138, potassium 4, chloride 102, CO2 of 30, BUN 25, creatinine 0.7, glucose 100, calcium is low at 7.6. Iron is normal at 92, TIBC is low at 229. Vitamin D is low normal level at 325 with normal vitamin D. Urinalysis is negative for urinary tract infections. Phenytoin level is supratherapeutic at 6.1. Coagulation, the patient has high D-dimer at 0.58. IMPRESSION: 1. Longstanding history of seizure, etiology, probably due to anoxic encephalopathy since childhood, but no further information about her seizure with current subtherapeutic level of phenytoin. 2. Multiple medical problems include hypothyroidism, hyperlipidemia, vitamin B12 deficiency, major depressions, dementia and anxiety disorder. RECOMMENDATIONS: 1. We will change phenytoin level to 300 mg daily to once. 2. Check phenytoin level after 2 days and adjust phenytoin level accordingly. 3. Continue with current medical and psychiatric care. M Cody MALAVE MD DR: SHADI/brendan JOB#: [id number] / [id number]
--- NOTE | 2020-06-27 20:47 | PDOC ---
Exam Note: Brooks Note: Please also refer to the separate dictated note~for this date of service dictated separately.~Patient seen individually. Discussed the patient with Nursing staff reviewed the chart.~Reviewed interim history and current functioning. Reviewed vital signs,~Labs/ Radiology~and current medications noted below. Continue current treatment with the changes noted in the dictated addendum note Assessment: Vital Signs/I&O: Vital Signs Date Time Temp Pulse Resp B/P (MAP) Pulse Ox O2 Delivery O2 Flow Rate FiO2 06/27/20 16:21 98.0 68 18 149/88 (108) 97 06/26/20 06:08 Room Air I & O 06/26/20 06/26/20 06/27/20 15:00 23:00 07:00 Intake Total 240 ml 680 ml Balance 240 ml 680 ml Labs: Laboratory Tests Test 06/27/20 06:25 White Blood Count 4.9 x10^3/uL (4.0-11.0) Red Blood Count 3.51 x10^6/uL (3.50-5.40) Hemoglobin 11.5 g/dL (12.0-15.5) L Hematocrit 34.8 % (36.0-47.0) L Mean Corpuscular Volume 99 fL (79-100) Mean Corpuscular Hemoglobin 33 pg (25-35) Mean Corpuscular Hemoglobin Concent 33 g/dL (31-37) Red Cell Distribution Width 13.3 % (11.5-14.5) Platelet Count 274 x10^3/uL (140-400) Neutrophils (%) (Auto) 60 % (31-73) Lymphocytes (%) (Auto) 30 % (24-48) Monocytes (%) (Auto) 8 % (0-9) Eosinophils (%) (Auto) 2 % (0-3) Basophils (%) (Auto) 1 % (0-3) Neutrophils # (Auto) 2.9 x10^3uL (1.8-7.7) Lymphocytes # (Auto) 1.5 x10^3/uL (1.0-4.8) Monocytes # (Auto) 0.4 x10^3/uL (0.0-1.1) Eosinophils # (Auto) 0.1 x10^3/uL (0.0-0.7) Basophils # (Auto) 0.1 x10^3/uL (0.0-0.2) Sodium Level 138 mmol/L (136-145) Potassium Level 4.0 mmol/L (3.5-5.1) Chloride Level 102 mmol/L (98-107) Carbon Dioxide Level 30 mmol/L (21-32) Anion Gap 6 (6-14) Blood Urea Nitrogen 25 mg/dL (7-20) H Creatinine 0.7 mg/dL (0.6-1.0) Estimated GFR (Cockcroft-Gault) 83.0 BUN/Creatinine Ratio 36 (6-20) H Glucose Level 100 mg/dL (70-99) H Calcium Level 8.5 mg/dL (8.5-10.1) Total Bilirubin 0.2 mg/dL (0.2-1.0) Aspartate Amino Transferase (AST) 21 U/L (15-37) Alanine Aminotransferase (ALT) 27 U/L (14-59) Alkaline Phosphatase 78 U/L (46-116) YG-Nxh-W-Type Natriuretic Peptide 176 pg/mL (0-124) H Total Protein 7.1 g/dL (6.4-8.2) Albumin 3.0 g/dL (3.4-5.0) L Albumin/Globulin Ratio 0.7 (1.0-1.7) L Current Medications: I have reviewed the current psychotropics carefully including drug interactions. Risk benefit ratio favors no change other than as noted in my dictated progress note. Diagnosis: Problems: (1) Impulse control disorder, unspecified (2) Anxiety disorder, unspecified (3) Dementia, vascular, with depression (4) Dementia, vascular, with delusions (5) MDD (major depressive disorder) (6) Dementia in Alzheimer's disease with depression (7) Dementia in Alzheimer's disease with delusions (8) Major neurocognitive disorder, due to vascular disease, with behavioral disturbance, mild GAMALIEL MALLOY MD Jun 27, 2020 20:47
--- NOTE | 2020-06-27 23:24 | NUR ---
Patient is in her room on assumption of care. She is asleep but easy to arouse. Patient calm, compliant with assessments and medications whole. Mostly non-verbal- grunting and pointing in order to make her needs known. No agitation. Patient does not appear to be in any pain or discomfort. She appears to be sleeping at present time. Will continue to monitor.
[2020-06-28] MEDS: LEVOTHYROXINE 50 MCG TABLET PO SCH (05:09)
[2020-06-28 06:34] VITALS: BP 125/76
[2020-06-28] MEDS: POTASSIUM CHLORIDE 20 MEQ TABLET.ER. PO SCH ×2 (09:00→20:18)
[2020-06-28] MEDS: BUMETANIDE 1 MG TABLET PO SCH (09:00)
[2020-06-28] MEDS: ASPIRIN CHEWABLE 81 MG TABLET. PO SCH (09:34)
[2020-06-28] MEDS: ACETAMINOPHEN 500 MG TABLET PO SCH ×2 (09:34→20:18)
[2020-06-28] MEDS: OMEGA-3 FATTY ACIDS/FISH OIL 1,000 MG CAPSULE. PO SCH (09:34)
[2020-06-28] MEDS: POLYETHYLENE GLYCOL 3350 17 GM PACKET. PO SCH (09:34)
[2020-06-28] MEDS: CETIRIZINE HCL 10 MG TABLET PO SCH (09:34)
[2020-06-28] MEDS: SERTRALINE 50 MG TABLET. PO SCH (09:34)
[2020-06-28] MEDS: MULTIVITAMIN with MINERAL TABLET. PO SCH (09:34)
[2020-06-28] MEDS: SENNOSIDES 8.6 MG TABLET PO SCH ×2 (09:35→20:18)
[2020-06-28] MEDS: DOCUSATE SODIUM 100 MG CAPSULE PO SCH (09:35)
[2020-06-28] MEDS: FUROSEMIDE 40 MG TABLET PO SCH ×2 (09:35→13:54)
[2020-06-28] MEDS: CALCIUM CARB/VIT D3 500/200 TABLET PO SCH (09:35)
--- NOTE | 2020-06-28 14:00 | NUR ---
Dr Marc informed of K+, CA+ and BNP results. No new orders. Informed pt needs to f/u as outpt for ECHO. Informed of UA results. Stated was contaminated. No new orders.
--- NOTE | 2020-06-28 15:32 | NUR ---
Pt up in wc in morning. Harrold up and down mathews yelling help. Gave pt some coloring pages and makers to occupy pt. Has been compliant with meds and cares. Rested for short time in bed in room in afternoon before wanting up.
[2020-06-28 16:04] VITALS: BP 136/80
[2020-06-28] MEDS: MELATONIN 3 MG TABLET PO PRN (20:19)
[2020-06-28] MEDS: PHENYTOIN SODIUM EXTENDED 100 MG CAPSULE PO SCH (20:19)
--- NOTE | 2020-06-28 21:36 | PDOC ---
Exam Note: Brooks Note: This note is a late entry for 06/25/2020 covers elements not covered in my initial note. Subjective: The patient was reviewed on telehealth rounds in the evening of 06/25/2020 with Bella NEWMAN. Discussed with nursing staff, reviewed the chart. The patient slept for 5-3/4 hours previous night. Overall the patient is essentially non-verbal. She grunts and makes some odd gestures as a way to communicate. She is compliant with her medications, not aggressive. She does appear depressed. Review of Systems: Ambulation impaired in wheelchair. No CV, , pulmonary, eye, ENT system symptoms on review. Mental Status Exam: The patient is oriented to herself. Insight and judgment, recent and remote memory, attention and concentration, fund of knowledge is poor consistent with her diagnosis mentioned in my initial note. Laboratory Data: Reviewed. Impression: Major depressive disorder severe. Anxiety disorder unspecified. Major neurocognitive disorder Alzheimer vascular with delusion, depression, behavioral disturbance. Impulse control disorder. Plan: No change from initial note. We will increase Zoloft from 25 mg a day to 50 mg a day. Maintain melatonin unchanged. Adjust further as clinically indicated. Assessment: Vital Signs/I&O: Vital Signs Date Time Temp Pulse Resp B/P (MAP) Pulse Ox O2 Delivery O2 Flow Rate FiO2 06/28/20 16:04 99.0 86 18 136/80 (98) 95 06/28/20 06:34 Room Air I & O 06/27/20 06/27/20 06/28/20 15:00 23:00 07:00 Intake Total 600 ml 220 ml Balance 600 ml 220 ml Current Medications: Meds: Current Medications Medications (Trade) Dose Ordered Sig/Kassidy Route PRN Reason Start Time Stop Time Status Last Admin Dose Admin Phenytoin Sodium (Dilantin) 300 mg QHS PO 06/28/20 21:00 06/28/20 20:19 I have reviewed the current psychotropics carefully including drug interactions. Risk benefit ratio favors no change other than as noted in my dictated progress note. Diagnosis: Problems: (1) Impulse control disorder, unspecified (2) Anxiety disorder, unspecified (3) Dementia, vascular, with depression (4) Dementia, vascular, with delusions (5) MDD (major depressive disorder) (6) Dementia in Alzheimer's disease with depression (7) Dementia in Alzheimer's disease with delusions (8) Major neurocognitive disorder, due to vascular disease, with behavioral disturbance, mild GAMALIEL MALLOY MD Jun 28, 2020 21:36
--- NOTE | 2020-06-28 21:49 | PDOC ---
Exam Note: Brooks Note: This note is a late entry for 06/26/2020 covers elements not covered in my initial note. Subjective: The patient was reviewed on telehealth rounds in the morning of 06/26/2020 for a treatment team meeting with Angela Ochoa and Katty (social media editor), Rina, activity therapy and Vani NEWMAN. The patients sister Fariba who is her power of commercial attorney and Jah her niece attended the treatment team meeting. Reviewed the patients history at length including the anoxic brain damage post . Discussed with nursing staff, reviewed the chart. The patient slept for 6-3/4 hours previous night. The patient had a history of seizure disorder, currently on Dilantin, level is low at 6.1. We will consult Dr. Tellez neurology. Adjust this to therapeutic level. Additionally the patients sister indicated her primary care physician wanted an echocardiogram and I will defer this to Dr. Diaz. She may have a UTI but the culture report is pending. The patient remains anxious, restless, getting into other patients rooms, redirectable. She is up and down the hallway, somewhat inattentive. Review of Systems: Ambulation impaired in wheelchair. No CV, , pulmonary, eye, ENT system symptoms on review. Reliability poor. Mental Status Exam: The patient is oriented to herself. Insight and judgment, recent and remote memory, attention and concentration, fund of knowledge is poor consistent with her diagnosis. Laboratory Data: Reviewed. Impression: Major depressive disorder severe. Anxiety disorder unspecified. Major neurocognitive disorder Alzheimer vascular with delusion, depression, behavioral disturbance. Impulse control disorder. Plan: No change from initial note and as noted above. She remains somewhat depressed. We will increase the Zoloft. Consider Depakote as a mood stabilizer if needed. Assessment: Vital Signs/I&O: Vital Signs Date Time Temp Pulse Resp B/P (MAP) Pulse Ox O2 Delivery O2 Flow Rate FiO2 06/28/20 16:04 99.0 86 18 136/80 (98) 95 06/28/20 06:34 Room Air I & O 06/27/20 06/27/20 06/28/20 15:00 23:00 07:00 Intake Total 600 ml 220 ml Balance 600 ml 220 ml Current Medications: Meds: Current Medications Medications (Trade) Dose Ordered Sig/Kassidy Route PRN Reason Start Time Stop Time Status Last Admin Dose Admin Phenytoin Sodium (Dilantin) 300 mg QHS PO 06/28/20 21:00 06/28/20 20:19 I have reviewed the current psychotropics carefully including drug interactions. Risk benefit ratio favors no change other than as noted in my dictated progress note. Diagnosis: Problems: (1) Impulse control disorder, unspecified (2) Anxiety disorder, unspecified (3) Dementia, vascular, with depression (4) Dementia, vascular, with delusions (5) MDD (major depressive disorder) (6) Dementia in Alzheimer's disease with depression (7) Dementia in Alzheimer's disease with delusions (8) Major neurocognitive disorder, due to vascular disease, with behavioral disturbance, mild GAMALIEL MALLOY MD Jun 28, 2020 21:49
--- NOTE | 2020-06-28 22:02 | PDOC ---
Exam Note: Brooks Note: This note is a late entry for 06/27/2020 covers elements not covered in my initial note. Subjective: The patient was reviewed on telehealth rounds in the evening of 06/27/2020 with Vani NEWMAN. Discussed with nursing staff, reviewed the chart. The patient slept 6 hours previous night. Overall the patient remains confused. Verbal response is monosyllabic and she often grunts and many of her responses are non verbal. BNP is increased. We will defer to Dr. Diaz. She was seen by Dr. Tellez, Neurology and Dilantin is being adjusted. Review of Systems: Ambulation impaired in wheelchair. No CV, , pulmonary, eye, ENT system symptoms on review. Mental Status Exam: The patient is oriented to herself. Insight and judgment, recent and remote memory, attention and concentration, fund of knowledge is poor consistent with her diagnosis mentioned in my initial note. Laboratory Data: Reviewed. Impression: Major depressive disorder severe. Anxiety disorder unspecified. Major neurocognitive disorder Alzheimer vascular with delusion, depression, behavioral disturbance. Impulse control disorder. Plan: No change from initial note. Increase Zoloft from 50 mg a day to 75 mg a day, after she has been on 50 for 3 days. Maintain melatonin 6 mg h.s. Consider adding Depakote as a mood stabilizer but for now she seems to be improving on her current regimen with her antidepressants. Assessment: Vital Signs/I&O: Vital Signs Date Time Temp Pulse Resp B/P (MAP) Pulse Ox O2 Delivery O2 Flow Rate FiO2 06/28/20 16:04 99.0 86 18 136/80 (98) 95 06/28/20 06:34 Room Air I & O 06/27/20 06/27/20 06/28/20 15:00 23:00 07:00 Intake Total 600 ml 220 ml Balance 600 ml 220 ml Current Medications: Meds: Current Medications Medications (Trade) Dose Ordered Sig/Kassidy Route PRN Reason Start Time Stop Time Status Last Admin Dose Admin Phenytoin Sodium (Dilantin) 300 mg QHS PO 06/28/20 21:00 06/28/20 20:19 I have reviewed the current psychotropics carefully including drug interactions. Risk benefit ratio favors no change other than as noted in my dictated progress note. Diagnosis: Problems: (1) Impulse control disorder, unspecified (2) Anxiety disorder, unspecified (3) Dementia, vascular, with depression (4) Dementia, vascular, with delusions (5) MDD (major depressive disorder) (6) Dementia in Alzheimer's disease with depression (7) Dementia in Alzheimer's disease with delusions (8) Major neurocognitive disorder, due to vascular disease, with behavioral disturbance, mild GAMALIEL MALLOY MD Jun 28, 2020 22:02
--- NOTE | 2020-06-28 22:05 | PDOC ---
Exam Note: Brooks Note: Please also refer to the separate dictated note~for this date of service dictated separately.~Patient seen individually. Discussed the patient with Nursing staff reviewed the chart.~Reviewed interim history and current functioning. Reviewed vital signs,~Labs/ Radiology~and current medications noted below. Continue current treatment with the changes noted in the dictated addendum note Assessment: Vital Signs/I&O: Vital Signs Date Time Temp Pulse Resp B/P (MAP) Pulse Ox O2 Delivery O2 Flow Rate FiO2 06/28/20 16:04 99.0 86 18 136/80 (98) 95 06/28/20 06:34 Room Air I & O 06/27/20 06/27/20 06/28/20 15:00 23:00 07:00 Intake Total 600 ml 220 ml Balance 600 ml 220 ml Current Medications: Meds: Current Medications Medications (Trade) Dose Ordered Sig/Kassidy Route PRN Reason Start Time Stop Time Status Last Admin Dose Admin Phenytoin Sodium (Dilantin) 300 mg QHS PO 06/28/20 21:00 06/28/20 20:19 I have reviewed the current psychotropics carefully including drug interactions. Risk benefit ratio favors no change other than as noted in my dictated progress note. Diagnosis: Problems: (1) Impulse control disorder, unspecified (2) Anxiety disorder, unspecified (3) Dementia, vascular, with depression (4) Dementia, vascular, with delusions (5) MDD (major depressive disorder) (6) Dementia in Alzheimer's disease with depression (7) Dementia in Alzheimer's disease with delusions (8) Major neurocognitive disorder, due to vascular disease, with behavioral disturbance, mild GAMALIEL MALLOY MD Jun 28, 2020 22:05
[2020-06-29] MEDS: LEVOTHYROXINE 50 MCG TABLET PO SCH (04:55)
[2020-06-29 06:15] VITALS: BP 121/71
[2020-06-29] MEDS: OMEGA-3 FATTY ACIDS/FISH OIL 1,000 MG CAPSULE. PO SCH (08:36)
[2020-06-29] MEDS: SERTRALINE 25 MG TABLET. PO SCH (08:36)
[2020-06-29] MEDS: ACETAMINOPHEN 500 MG TABLET PO SCH ×2 (08:36→19:55)
[2020-06-29] MEDS: POTASSIUM CHLORIDE 20 MEQ TABLET.ER. PO SCH ×2 (08:36→19:54)
[2020-06-29] MEDS: CETIRIZINE HCL 10 MG TABLET PO SCH (08:36)
[2020-06-29] MEDS: CALCIUM CARB/VIT D3 500/200 TABLET PO SCH (08:36)
[2020-06-29] MEDS: POLYETHYLENE GLYCOL 3350 17 GM PACKET. PO SCH (08:36)
[2020-06-29] MEDS: ASPIRIN CHEWABLE 81 MG TABLET. PO SCH (08:36)
[2020-06-29] MEDS: MULTIVITAMIN with MINERAL TABLET. PO SCH (08:36)
[2020-06-29] MEDS: FUROSEMIDE 40 MG TABLET PO SCH ×2 (08:36→13:23)
[2020-06-29] MEDS: SENNOSIDES 8.6 MG TABLET PO SCH ×2 (08:36→19:54)
[2020-06-29] MEDS: BUMETANIDE 1 MG TABLET PO SCH (08:37)
--- NOTE | 2020-06-29 09:40 | NUR ---
patient cooperative this morning. Dr. noonan notified of contaminated urine, he does not wish to retest at this time.
--- NOTE | 2020-06-29 10:30 | NUR ---
resumed care of pt.
[2020-06-29 16:24] VITALS: BP 126/77
--- NOTE | 2020-06-29 17:34 | NUR ---
Pt up and wandering in halls in . Compliant with meds and cares. Occasionally yells out but pt is not loud.
[2020-06-29] MEDS: PHENYTOIN SODIUM EXTENDED 100 MG CAPSULE PO SCH (19:55)
--- NOTE | 2020-06-29 20:46 | PDOC ---
Exam Note: Brooks Note: This note is a late entry for 06/28/2020 covers elements not covered in my initial note. Subjective: The patient was reviewed on telehealth rounds in the evening of 06/28/2020 with Tori NEWMAN. Discussed with nursing staff, reviewed the chart. The patient slept 7 hours previous night. Overall the patient has been yelling for help intermittently. UA was contaminated per Dr. Marc and no antibiotics were started. She remains essentially non verbal grunting in her responses. Review of Systems: Ambulation impaired in wheelchair. No CV, , pulmonary, eye, ENT system symptoms on review. Mental Status Exam: The patient is oriented to herself. Insight and judgment, recent and remote memory, attention and concentration, fund of knowledge is poor consistent with her diagnosis mentioned in my initial note. Laboratory Data: Reviewed. Impression: Major depressive disorder severe. Anxiety disorder unspecified. Major neurocognitive disorder Alzheimer vascular with delusion, depression, behavioral disturbance. Impulse control disorder. Plan: No change from initial note. Assessment: Vital Signs/I&O: Vital Signs Date Time Temp Pulse Resp B/P (MAP) Pulse Ox O2 Delivery O2 Flow Rate FiO2 06/29/20 16:24 98.0 71 17 126/77 (93) 97 06/29/20 06:15 Room Air I & O 06/28/20 06/28/20 06/29/20 14:59 22:59 06:59 Intake Total 480 ml 240 ml Balance 480 ml 240 ml Current Medications: Meds: Current Medications Medications (Trade) Dose Ordered Sig/Kassidy Route PRN Reason Start Time Stop Time Status Last Admin Dose Admin Sertraline HCl (Zoloft) 75 mg DAILY PO 06/29/20 09:00 06/29/20 08:36 Phenytoin Sodium (Dilantin) 300 mg QHS PO 06/28/20 21:00 06/29/20 19:55 I have reviewed the current psychotropics carefully including drug interactions. Risk benefit ratio favors no change other than as noted in my dictated progress note. Diagnosis: Problems: (1) Impulse control disorder, unspecified (2) Anxiety disorder, unspecified (3) Dementia, vascular, with depression (4) Dementia, vascular, with delusions (5) MDD (major depressive disorder) (6) Dementia in Alzheimer's disease with depression (7) Dementia in Alzheimer's disease with delusions (8) Major neurocognitive disorder, due to vascular disease, with behavioral disturbance, mild GAMALIEL MALLOY MD Jun 29, 2020 20:46
--- NOTE | 2020-06-29 20:50 | PDOC ---
Exam Note: Brooks Note: Please also refer to the separate dictated note~for this date of service dictated separately.~Patient seen individually. Discussed the patient with Nursing staff reviewed the chart.~Reviewed interim history and current functioning. Reviewed vital signs,~Labs/ Radiology~and current medications noted below. Continue current treatment with the changes noted in the dictated addendum note Assessment: Vital Signs/I&O: Vital Signs Date Time Temp Pulse Resp B/P (MAP) Pulse Ox O2 Delivery O2 Flow Rate FiO2 06/29/20 16:24 98.0 71 17 126/77 (93) 97 06/29/20 06:15 Room Air I & O 06/28/20 06/28/20 06/29/20 15:00 23:00 07:00 Intake Total 480 ml 240 ml Balance 480 ml 240 ml Current Medications: Meds: Current Medications Medications (Trade) Dose Ordered Sig/Kassidy Route PRN Reason Start Time Stop Time Status Last Admin Dose Admin Sertraline HCl (Zoloft) 75 mg DAILY PO 06/29/20 09:00 06/29/20 08:36 Phenytoin Sodium (Dilantin) 300 mg QHS PO 06/28/20 21:00 06/29/20 19:55 I have reviewed the current psychotropics carefully including drug interactions. Risk benefit ratio favors no change other than as noted in my dictated progress note. Diagnosis: Problems: (1) Impulse control disorder, unspecified (2) Anxiety disorder, unspecified (3) Dementia, vascular, with depression (4) Dementia, vascular, with delusions (5) MDD (major depressive disorder) (6) Dementia in Alzheimer's disease with depression (7) Dementia in Alzheimer's disease with delusions (8) Major neurocognitive disorder, due to vascular disease, with behavioral disturbance, mild GAMALIEL MALLOY MD Jun 29, 2020 20:50
--- NOTE | 2020-06-29 23:07 | PN ---
DATE: SUBJECTIVE: The patient has not had any new neurological changes since last evaluation. She has not had any seizure-like activity since admission. OBJECTIVE: GENERAL: An obese female, not in acute distress. VITAL SIGNS: Blood pressure 126/77, respiratory rate 17, pulse is 71 and regular, temperature 98 and oxygen saturation 97% on room air. HEENT: Normocephalic, atraumatic, otherwise unremarkable. NECK: Supple. Negative for carotid bruit, lymphadenopathy or thyromegaly. LUNGS: Clear to A and P. CARDIOVASCULAR: Regular rate and rhythm, normal S1 and S2. ABDOMEN: Soft. Bowel sounds positive. EXTREMITIES: Negative for cyanosis, clubbing or pitting edema. NEUROLOGICAL EXAM: Mental Status: The patient is awake, sitting in a wheelchair. She does not respond verbally; however, she does follow 1-step commands. Further mental status evaluation is limited at this time as the patient is not able to respond to verbal response intellectually. The strength is 4/5 throughout. Sensory examination revealed normal pinprick and light touch senses throughout. Deep tendon reflexes were symmetric and hypoactive with absent Achilles responses. Gait not tested as the patient not able to stand and walk. IMPRESSION: 1. Longstanding history of seizure of unknown etiology, probably due to anoxic encephalopathy in hide trimmer. 2. Multiple medical problems include obesity, hypothyroidism, hyperlipidemia, vitamin B12 deficiency, major depression, dementia and anxiety disorder. RECOMMENDATIONS: We will continue with current medical and psychiatric care. Continue with phenytoin 300 mg daily. We will check phenytoin level in 2 days. M Cody MALAVE MD DR: SHADI/brendan JOB#: [id number] / [id number]
[2020-06-30] MEDS: ACETAMINOPHEN 325 MG TABLET PO PRN (03:41)
[2020-06-30] MEDS: LEVOTHYROXINE 50 MCG TABLET PO SCH (05:03)
[2020-06-30 06:12] VITALS: BP 136/78
--- NOTE | 2020-06-30 08:14 | PDOC ---
Exam Note: Brooks Note: This note is a late entry for 06/29/2020 covers elements not covered in my initial note. Subjective: The patient was reviewed on telehealth rounds in the evening of 06/29/2020 with Tori NEWMAN. Discussed with nursing staff, reviewed the chart. The patient slept 7-1/2 hours previous night. Overall the patient has been yelling intermittently. Many of her responses are grunting, non-verbal. Review of Systems: Ambulation impaired in wheelchair. No CV, , pulmonary, eye, ENT system symptoms on review. Mental Status Exam: The patient is oriented to herself. Insight and judgment, recent and remote memory, attention and concentration, fund of knowledge is poor consistent with her diagnosis mentioned in my initial note. Laboratory Data: Reviewed. Impression: Major depressive disorder severe. Anxiety disorder unspecified. Major neurocognitive disorder Alzheimer vascular with delusion, depression, behavioral disturbance. Impulse control disorder. Plan: No change from initial note. Assessment: Vital Signs/I&O: Vital Signs Date Time Temp Pulse Resp B/P (MAP) Pulse Ox O2 Delivery O2 Flow Rate FiO2 06/30/20 06:12 97.6 68 18 136/78 (97) 94 Room Air I & O 06/29/20 06/29/20 06/30/20 14:59 22:59 06:59 Intake Total 360 ml 480 ml Balance 360 ml 480 ml Current Medications: Meds: Current Medications Medications (Trade) Dose Ordered Sig/Kassidy Route PRN Reason Start Time Stop Time Status Last Admin Dose Admin Sertraline HCl (Zoloft) 75 mg DAILY PO 06/29/20 09:00 06/29/20 08:36 I have reviewed the current psychotropics carefully including drug interactions. Risk benefit ratio favors no change other than as noted in my dictated progress note. Diagnosis: Problems: (1) Impulse control disorder, unspecified (2) Anxiety disorder, unspecified (3) Dementia, vascular, with depression (4) Dementia, vascular, with delusions (5) MDD (major depressive disorder) (6) Dementia in Alzheimer's disease with depression (7) Dementia in Alzheimer's disease with delusions (8) Major neurocognitive disorder, due to vascular disease, with behavioral disturbance, mild GAMALIEL MALLOY MD Jun 30, 2020 08:14
[2020-06-30] MEDS: BUMETANIDE 1 MG TABLET PO SCH (09:00)
[2020-06-30] MEDS: CETIRIZINE HCL 10 MG TABLET PO SCH (09:36)
[2020-06-30] MEDS: ASPIRIN CHEWABLE 81 MG TABLET. PO SCH (09:36)
[2020-06-30] MEDS: DOCUSATE SODIUM 100 MG CAPSULE PO SCH (09:36)
[2020-06-30] MEDS: POLYETHYLENE GLYCOL 3350 17 GM PACKET. PO SCH (09:36)
[2020-06-30] MEDS: ACETAMINOPHEN 500 MG TABLET PO SCH ×2 (09:36→20:18)
[2020-06-30] MEDS: SENNOSIDES 8.6 MG TABLET PO SCH ×2 (09:37→20:19)
[2020-06-30] MEDS: FUROSEMIDE 40 MG TABLET PO SCH ×2 (09:37→13:05)
[2020-06-30] MEDS: SERTRALINE 25 MG TABLET. PO SCH (09:37)
[2020-06-30] MEDS: CALCIUM CARB/VIT D3 500/200 TABLET PO SCH (09:37)
[2020-06-30] MEDS: OMEGA-3 FATTY ACIDS/FISH OIL 1,000 MG CAPSULE. PO SCH (09:37)
[2020-06-30] MEDS: MULTIVITAMIN with MINERAL TABLET. PO SCH (09:37)
[2020-06-30] MEDS: POTASSIUM CHLORIDE 20 MEQ TABLET.ER. PO SCH ×2 (09:38→20:19)
--- NOTE | 2020-06-30 15:02 | NUR ---
Nursing note: Pt in her room at time of AM med pass and assessment. She is med compliant and cooperative. Pt is nonverbal, only grunting and pointing to make needs known. She has been in her wheelchair for most of the shift propelling herself around the unit. Will continue to monitor.
[2020-06-30 16:04] VITALS: BP 142/75
[2020-06-30] MEDS: metOLazone 5 MG TABLET PO SCH (16:10)
[2020-06-30] MEDS: PHENYTOIN SODIUM EXTENDED 100 MG CAPSULE PO SCH (20:19)
--- NOTE | 2020-06-30 21:01 | PDOC ---
Exam Note: Brooks Note: Please also refer to the separate dictated note~for this date of service dictated separately.~Patient seen individually. Discussed the patient with Nursing staff reviewed the chart.~Reviewed interim history and current functioning. Reviewed vital signs,~Labs/ Radiology~and current medications noted below. Continue current treatment with the changes noted in the dictated addendum note Assessment: Vital Signs/I&O: Vital Signs Date Time Temp Pulse Resp B/P (MAP) Pulse Ox O2 Delivery O2 Flow Rate FiO2 06/30/20 16:04 98.1 64 18 142/75 (97) 96 06/30/20 06:12 Room Air I & O 06/29/20 06/29/20 06/30/20 15:00 23:00 07:00 Intake Total 360 ml 480 ml Balance 360 ml 480 ml Current Medications: I have reviewed the current psychotropics carefully including drug interactions. Risk benefit ratio favors no change other than as noted in my dictated progress note. Diagnosis: Problems: (1) Impulse control disorder, unspecified (2) Anxiety disorder, unspecified (3) Dementia, vascular, with depression (4) Dementia, vascular, with delusions (5) MDD (major depressive disorder) (6) Dementia in Alzheimer's disease with depression (7) Dementia in Alzheimer's disease with delusions (8) Major neurocognitive disorder, due to vascular disease, with behavioral disturbance, mild GAMALIEL MALLOY MD Jun 30, 2020 21:01
--- NOTE | 2020-06-30 21:50 | NUR ---
Patient was in hallway propelling herself in her wheelchair. At the time of assessment, the patient was in her bed, she was calm, cooperative and compliant with her medications. Patient is mostly non-verbal, she was awake but did not attempt to communicate with nurse and was unable to answer orientation questions.
[2020-07-01] MEDS: LEVOTHYROXINE 50 MCG TABLET PO SCH (05:49)
[2020-07-01 06:42] VITALS: BP 128/60
[2020-07-01 07:02] LABS: PHENY 8.9 mcg/mL (10.0-20.0)
--- NOTE | 2020-07-01 07:46 | PDOC ---
Exam Note: Brooks Note: This note is a late entry for 06/30/2020 covers elements not covered in my initial note. Subjective: The patient was reviewed on telehealth rounds in the evening of 06/30/2020 with Bella NEWMAN. Discussed with nursing staff, reviewed the chart. The patient slept 6-3/4 hours previous night. Overall the patient remains confused. Many of her responses are non-verbal, grunting as I met with her. Review of Systems: Ambulation impaired in wheelchair. No CV, , pulmonary, eye, ENT system symptoms on review. Mental Status Exam: The patient is oriented to herself. She is quite pleasant, but oblivious to her surroundings, grunting non-verbally in her interactions. Insight and judgment, recent and remote memory, attention and concentration, fund of knowledge is poor consistent with her diagnosis mentioned in my initial note. Laboratory Data: Reviewed. Impression: Major depressive disorder severe. Anxiety disorder unspecified. Major neurocognitive disorder Alzheimer vascular with delusion, depression, behavioral disturbance. Impulse control disorder. Plan: No change from initial note. Assessment: Vital Signs/I&O: Vital Signs Date Time Temp Pulse Resp B/P (MAP) Pulse Ox O2 Delivery O2 Flow Rate FiO2 07/01/20 06:42 97.6 88 18 128/60 (82) 96 06/30/20 06:12 Room Air I & O 06/30/20 06/30/20 07/01/20 15:00 23:00 07:00 Intake Total 360 ml 360 ml Balance 360 ml 360 ml Labs: Laboratory Tests Test 07/01/20 06:25 Phenytoin (Dilantin) Level 8.9 mcg/mL (10.0-20.0) L Phenytoin Last Dose Date 06/30/2020 Phenytoin Last Dose Time 2100 Current Medications: I have reviewed the current psychotropics carefully including drug interactions. Risk benefit ratio favors no change other than as noted in my dictated progress note. Diagnosis: Problems: (1) Impulse control disorder, unspecified (2) Anxiety disorder, unspecified (3) Dementia, vascular, with depression (4) Dementia, vascular, with delusions (5) MDD (major depressive disorder) (6) Dementia in Alzheimer's disease with depression (7) Dementia in Alzheimer's disease with delusions (8) Major neurocognitive disorder, due to vascular disease, with behavioral dist urbance, mild GAMA,MAN M MD Jul 01, 2020 07:46
[2020-07-01] MEDS: FUROSEMIDE 40 MG TABLET PO SCH ×2 (07:49→14:00)
[2020-07-01] MEDS: POLYETHYLENE GLYCOL 3350 17 GM PACKET. PO SCH (07:49)
[2020-07-01] MEDS: SERTRALINE 25 MG TABLET. PO SCH (07:49)
[2020-07-01] MEDS: ASPIRIN CHEWABLE 81 MG TABLET. PO SCH (07:50)
[2020-07-01] MEDS: SENNOSIDES 8.6 MG TABLET PO SCH ×2 (07:50→19:37)
[2020-07-01] MEDS: CALCIUM CARB/VIT D3 500/200 TABLET PO SCH (07:50)
[2020-07-01] MEDS: CHOLECALCIFEROL (VITAMIN D3) 50,000 UNIT CAPSULE PO SCH (07:50)
[2020-07-01] MEDS: ACETAMINOPHEN 500 MG TABLET PO SCH ×2 (07:50→19:37)
[2020-07-01] MEDS: OMEGA-3 FATTY ACIDS/FISH OIL 1,000 MG CAPSULE. PO SCH (07:50)
[2020-07-01] MEDS: POTASSIUM CHLORIDE 20 MEQ TABLET.ER. PO SCH ×2 (07:50→19:37)
[2020-07-01] MEDS: CETIRIZINE HCL 10 MG TABLET PO SCH (07:51)
[2020-07-01] MEDS: BUMETANIDE 1 MG TABLET PO SCH (07:51)
[2020-07-01] MEDS: MULTIVITAMIN with MINERAL TABLET. PO SCH (07:51)
--- NOTE | 2020-07-01 14:33 | NUR ---
FIORDALIZA spoke with Fariba pt sister/DPOA. FIORDALIZA related that pt behaviors had been good while on the unit. Fariba inquired about pt legs swelling and UTI. FIORDALIZA requested nursing staff to call Fariba to give better information regarding a medical report. FIORDALIZA agreed to maintain contact with Fariba and provide updates as needed.
[2020-07-01 15:20] VITALS: BP 139/79
--- NOTE | 2020-07-01 17:47 | NUR ---
Patient is calm and cooperative today with no complaints. Patient continues to moan and grunt as she needs something from us. She can communicate fairly well this way by pointing and using hand gestures. She is alert but unable to assess orientation as patient can not answer questions. No further concerns or complaints at this time.
--- NOTE | 2020-07-01 18:08 | NUR ---
tried to contact patients sister per Katty request to go over ordering [employer] and some other nursing questions. Unable to get in touch with her and will wait for her to call back.
[2020-07-01] MEDS: PHENYTOIN SODIUM EXTENDED 100 MG CAPSULE PO SCH (19:37)
--- NOTE | 2020-07-01 21:10 | PDOC ---
Exam Note: Brooks Note: Please also refer to the separate dictated note~for this date of service dictated separately.~Patient seen individually. Discussed the patient with Nursing staff reviewed the chart.~Reviewed interim history and current functioning. Reviewed vital signs,~Labs/ Radiology~and current medications noted below. Continue current treatment with the changes noted in the dictated addendum note Assessment: Vital Signs/I&O: Vital Signs Date Time Temp Pulse Resp B/P (MAP) Pulse Ox O2 Delivery O2 Flow Rate FiO2 07/01/20 15:20 96.9 66 18 139/79 (99) 99 06/30/20 06:12 Room Air I & O 06/30/20 06/30/20 07/01/20 15:00 23:00 07:00 Intake Total 360 ml 360 ml Balance 360 ml 360 ml Labs: Laboratory Tests Test 07/01/20 06:25 Phenytoin (Dilantin) Level 8.9 mcg/mL (10.0-20.0) L Phenytoin Last Dose Date 06/30/2020 Phenytoin Last Dose Time 2100 Current Medications: I have reviewed the current psychotropics carefully including drug interactions. Risk benefit ratio favors no change other than as noted in my dictated progress note. Diagnosis: Problems: (1) Impulse control disorder, unspecified (2) Anxiety disorder, unspecified (3) Dementia, vascular, with depression (4) Dementia, vascular, with delusions (5) MDD (major depressive disorder) (6) Dementia in Alzheimer's disease with depression (7) Dementia in Alzheimer's disease with delusions (8) Major neurocognitive disorder, due to vascular disease, with behavioral disturbance, mild GAMALIEL MALLOY MD Jul 01, 2020 21:09
--- NOTE | 2020-07-01 22:10 | NUR ---
Nursing Note: Pt withdrawn to her room, lying in bed at shift change. Pt calm, mostly non-verbal- grunting and pointing in order to make her needs known, responding to name. Pt cooperative with assessment and compliant with medications administered whole. No agitation or aggression noted thus far this shift.
[2020-07-02] MEDS: MELATONIN 3 MG TABLET PO PRN (01:13)
[2020-07-02] MEDS: LEVOTHYROXINE 50 MCG TABLET PO SCH (05:12)
[2020-07-02 05:58] VITALS: BP 138/64
[2020-07-02] MEDS: CETIRIZINE HCL 10 MG TABLET PO SCH (07:46)
[2020-07-02] MEDS: ASPIRIN CHEWABLE 81 MG TABLET. PO SCH (07:46)
[2020-07-02] MEDS: POLYETHYLENE GLYCOL 3350 17 GM PACKET. PO SCH (07:46)
[2020-07-02] MEDS: CALCIUM CARB/VIT D3 500/200 TABLET PO SCH (07:47)
[2020-07-02] MEDS: DOCUSATE SODIUM 100 MG CAPSULE PO SCH (07:47)
[2020-07-02] MEDS: SERTRALINE 25 MG TABLET. PO SCH (07:47)
[2020-07-02] MEDS: metOLazone 5 MG TABLET PO SCH (07:47)
[2020-07-02] MEDS: FUROSEMIDE 40 MG TABLET PO SCH ×2 (07:48→13:27)
[2020-07-02] MEDS: MULTIVITAMIN with MINERAL TABLET. PO SCH (07:48)
[2020-07-02] MEDS: BUMETANIDE 1 MG TABLET PO SCH (07:48)
[2020-07-02] MEDS: ACETAMINOPHEN 500 MG TABLET PO SCH ×2 (07:48→21:01)
[2020-07-02] MEDS: POTASSIUM CHLORIDE 20 MEQ TABLET.ER. PO SCH ×2 (07:48→21:01)
[2020-07-02] MEDS: OMEGA-3 FATTY ACIDS/FISH OIL 1,000 MG CAPSULE. PO SCH (07:48)
[2020-07-02] MEDS: SENNOSIDES 8.6 MG TABLET PO SCH ×2 (07:48→21:01)
[2020-07-02 16:01] VITALS: BP 115/76
--- NOTE | 2020-07-02 17:30 | NUR ---
Nursing note: Pt has been wheeling herself around the unit for most of the shift. She has been pleasant, med compliant and cooperative. Pt is mostly nonverbal, only making her needs known by grunting and pointing. Will continue to monitor and report to oncoming shift.
--- NOTE | 2020-07-02 20:56 | PDOC ---
Exam Note: Brooks Note: This note is a late entry for 07/01/2020 covers elements not covered in my initial note. Subjective: The patient was reviewed on telehealth rounds in the evening of 07/01/2020 with Vani NEWMAN. Discussed with nursing staff, reviewed the chart. The patient slept 6-1/2 hours previous night. Overall the patient has done reasonably well. She remains confused, has communication mainly by grunting noises. Dilantin level 8.9, will defer to Dr. Tellez. Review of Systems: Ambulation impaired in wheelchair. No CV, , pulmonary, eye, ENT system symptoms on review. Mental Status Exam: The patient is oriented to herself. She is less anxious, restless today. Insight and judgment, recent and remote memory, attention and concentration, fund of knowledge is poor consistent with her diagnosis mentioned in my initial note. Laboratory Data: Reviewed. Impression: Major depressive disorder severe. Anxiety disorder unspecified. Major neurocognitive disorder Alzheimer vascular with delusion, depression, behavioral disturbance. Impulse control disorder. Plan: No change from initial note. Assessment: Vital Signs/I&O: Vital Signs Date Time Temp Pulse Resp B/P (MAP) Pulse Ox O2 Delivery O2 Flow Rate FiO2 07/02/20 16:01 98.1 78 18 115/76 (89) 96 06/30/20 06:12 Room Air I & O 07/01/20 07/01/20 07/02/20 15:00 23:00 07:00 Intake Total 720 ml 480 ml Balance 720 ml 480 ml Current Medications: I have reviewed the current psychotropics carefully including drug interactions. Risk benefit ratio favors no change other than as noted in my dictated progress note. Diagnosis: Problems: (1) Impulse control disorder, unspecified (2) Anxiety disorder, unspecified (3) Dementia, vascular, with depression (4) Dementia, vascular, with delusions (5) MDD (major depressive disorder) (6) Dementia in Alzheimer's disease with depression (7) Dementia in Alzheimer's disease with delusions (8) Major neurocognitive disorder, due to vascular disease, with behavioral disturbance, mild GAMALIEL MALLOY MD Jul 02, 2020 20:56
[2020-07-02] MEDS: PHENYTOIN SODIUM EXTENDED 100 MG CAPSULE PO SCH (21:01)
--- NOTE | 2020-07-02 21:19 | PDOC ---
Exam Note: Brooks Note: Please also refer to the separate dictated note~for this date of service dictated separately.~Patient seen individually. Discussed the patient with Nursing staff reviewed the chart.~Reviewed interim history and current functioning. Reviewed vital signs,~Labs/ Radiology~and current medications noted below. Continue current treatment with the changes noted in the dictated addendum note Assessment: Vital Signs/I&O: Vital Signs Date Time Temp Pulse Resp B/P (MAP) Pulse Ox O2 Delivery O2 Flow Rate FiO2 07/02/20 16:01 98.1 78 18 115/76 (89) 96 06/30/20 06:12 Room Air I & O 07/01/20 07/01/20 07/02/20 14:59 22:59 06:59 Intake Total 720 ml 480 ml Balance 720 ml 480 ml Current Medications: I have reviewed the current psychotropics carefully including drug interactions. Risk benefit ratio favors no change other than as noted in my dictated progress note. Diagnosis: Problems: (1) Impulse control disorder, unspecified (2) Anxiety disorder, unspecified (3) Dementia, vascular, with depression (4) Dementia, vascular, with delusions (5) MDD (major depressive disorder) (6) Dementia in Alzheimer's disease with depression (7) Dementia in Alzheimer's disease with delusions (8) Major neurocognitive disorder, due to vascular disease, with behavioral disturbance, mild GAMALIEL MALLOY MD Jul 02, 2020 21:19
--- NOTE | 2020-07-02 22:03 | PDOC ---
Exam Note: Brooks Note: Please also refer to the separate dictated note~for this date of service dictated separately.~Patient seen individually. Discussed the patient with Nursing staff reviewed the chart.~Reviewed interim history and current functioning. Reviewed vital signs,~Labs/ Radiology~and current medications noted below. Continue current treatment with the changes noted in the dictated addendum note Assessment: Vital Signs/I&O: Current Medications Medications (Trade) Dose Ordered Sig/Kassidy Route PRN Reason Start Time Stop Time Status Last Admin Dose Admin Acetaminophen (Tylenol) 650 mg PRN Q6HRS PRN PO MILD PAIN / TEMP > 100.3'F 06/24/20 00:30 06/30/20 03:41 Multi-Ingredient Ointment (Analgesic [place]) 1 belinda PRN QID PRN TP MUSCLE PAIN 06/24/20 00:30 06/27/20 00:49 Al Hydroxide/Mg Hydroxide (Mylanta Plus Xs) 15 ml PRN AFTMEALHC PRN PO DYSPEPSIA 06/24/20 00:30 Magnesium Hydroxide (Milk Of Magnesia) 2,400 mg PRN QHS PRN PO CONSTIPATION 06/24/20 00:30 Acetaminophen (Tylenol) 650 mg Q4HRS PRN PO pain or fever 06/24/20 00:30 UNV Acetaminophen (Tylenol) 500 mg BID PO 06/24/20 09:00 07/02/20 21:01 Aspirin (Aspirin Chewable) 81 mg DAILY PO 06/24/20 09:00 07/02/20 07:46 Bumetanide (Bumex) 1 mg DAILY PO 06/24/20 09:00 07/02/20 07:48 Cetirizine HCl (ZyrTEC) 5 mg DAILY PO 06/24/20 09:00 07/02/20 07:46 Docusate Sodium (Colace) 100 mg QODAY PO 06/24/20 09:00 07/02/20 07:47 Furosemide (Lasix) 40 mg BID92 PO 06/24/20 09:00 07/02/20 13:27 Levothyroxine Sodium (Synthroid) 50 mcg DAILY06 PO 06/24/20 06:00 07/02/20 05:12 Metolazone (Zaroxolyn) 5 mg QMWF PO 06/25/20 16:00 07/02/20 07:47 Phenytoin Sodium (Dilantin) 50 mg DAILY PO 06/24/20 09:00 06/27/20 19:43 DC 06/27/20 08:39 Phenytoin Sodium (Dilantin) 100 mg BID PO 06/24/20 09:00 06/27/20 19:43 DC 06/27/20 08:39 Potassium Chloride (Klor-Con) 20 meq BID PO 06/24/20 09:00 07/02/20 21:01 Sennosides (Senna) 8.6 mg BID PO 06/24/20 09:00 07/02/20 21:01 Sertraline HCl (Zoloft) 25 mg DAILY PO 06/24/20 09:00 06/25/20 18:31 DC 06/25/20 09:11 Calcium/Vitamin D (Oscal D 500mg/ 200uts) 1 tab DAILY PO 06/24/20 09:00 07/02/20 07:47 Multivitamins/ Calcium (Thera-M Plus) 1 tab DAILY PO 06/24/20 09:00 07/02/20 07:48 Fish Oil (Fish Oil) 1,000 mg DAILY PO 06/24/20 09:00 07/02/20 07:48 Polyethylene Glycol (miraLAX) 17 gm DAILY PO 06/24/20 09:00 07/02/20 07:46 Vitamin D (Vitamin D3) 50,000 unit WEEKLY PO 06/24/20 09:00 07/01/20 07:50 Melatonin (Melatonin) 6 mg PRN QHS PRN PO INSOMNIA 06/24/20 00:30 07/02/20 01:13 Sertraline HCl (Zoloft) 50 mg DAILY PO 06/26/20 09:00 06/28/20 11:00 DC 06/28/20 09:34 Sertraline HCl (Zoloft) 75 mg DAILY PO 06/29/20 09:00 07/02/20 07:47 Phenytoin Sodium (Dilantin) 300 mg QHS PO 06/28/20 21:00 07/02/20 21:01 Vital Signs Date Time Temp Pulse Resp B/P (MAP) Pulse Ox O2 Delivery O2 Flow Rate FiO2 07/02/20 16:01 98.1 78 18 115/76 (89) 96 06/30/20 06:12 Room Air I & O 07/01/20 07/01/20 07/02/20 15:00 23:00 07:00 Intake Total 720 ml 480 ml Balance 720 ml 480 ml Current Medications: I have reviewed the current psychotropics carefully including drug interactions. Risk benefit ratio favors no change other than as noted in my dictated progress note. Diagnosis: Problems: (1) Impulse control disorder, unspecified (2) Anxiety disorder, unspecified (3) Dementia, vascular, with depression (4) Dementia, vascular, with delusions (5) MDD (major depressive disorder) (6) Dementia in Alzheimer's disease with depression (7) Dementia in Alzheimer's disease with delusions (8) Major neurocognitive disorder, due to vascular disease, with behavioral disturbance, mild GAMALIEL MALLOY MD Jul 02, 2020 22:03
--- NOTE | 2020-07-02 23:00 | NUR ---
Patient was in bed upon assumption of care. Patient cooperative and compliant with medications, she takes them whole and likes to drink gatorade with them. Patients lower extremities are very swollen, she winced when nurse moved the covers to look at them. Dr is aware of swelling. No adverse behaviors noted this shift.
[2020-07-03] MEDS: LEVOTHYROXINE 50 MCG TABLET PO SCH (06:06)
[2020-07-03 06:40] VITALS: BP 135/71
[2020-07-03] MEDS: POLYETHYLENE GLYCOL 3350 17 GM PACKET. PO SCH (08:49)
[2020-07-03] MEDS: CETIRIZINE HCL 10 MG TABLET PO SCH (08:49)
[2020-07-03] MEDS: OMEGA-3 FATTY ACIDS/FISH OIL 1,000 MG CAPSULE. PO SCH (08:49)
[2020-07-03] MEDS: DOCUSATE SODIUM 100 MG CAPSULE PO SCH (08:49)
[2020-07-03] MEDS: SENNOSIDES 8.6 MG TABLET PO SCH ×2 (08:49→19:43)
[2020-07-03] MEDS: ACETAMINOPHEN 500 MG TABLET PO SCH ×2 (08:49→19:43)
[2020-07-03] MEDS: CALCIUM CARB/VIT D3 500/200 TABLET PO SCH (08:49)
[2020-07-03] MEDS: POTASSIUM CHLORIDE 20 MEQ TABLET.ER. PO SCH ×2 (08:50→19:43)
[2020-07-03] MEDS: FUROSEMIDE 40 MG TABLET PO SCH ×2 (08:50→14:18)
[2020-07-03] MEDS: MULTIVITAMIN with MINERAL TABLET. PO SCH (08:50)
[2020-07-03] MEDS: SERTRALINE 25 MG TABLET. PO SCH (08:50)
[2020-07-03] MEDS: ASPIRIN CHEWABLE 81 MG TABLET. PO SCH (08:50)
[2020-07-03] MEDS: BUMETANIDE 1 MG TABLET PO SCH (08:57)
--- NOTE | 2020-07-03 10:19 | NUR ---
WEEKLY ACTIVITY THERAPY NOTE Date of Admission: 06/23 Date of AT Assessment: 06/24 Precipitating behaviors that initiated intake and admission: Aggressive behaviors at [facility] Goal aimed: to increase engagement and focus/ attention Initial Goal: Pt. will participate in at least one individual Activity Therapy session for at least ten minutes, before discharge. Goal changed 06/26: Pt. will participate in at least one individual Activity Therapy session for at least ten minutes, fully, before discharge. Weekly progress towards goal: Group participation level: Weekly highlights: followed a few exercises on Tuesday, waves to staff Behaviors observed: wanders, social, colors in room, pleasant, calm and less shouting out/ grunting, struggles to wear mask correctly, smiles often Plan: no change to goal at this time, potentially change goal to adding group involvement Beneficial adaptations:
[2020-07-03 15:46] VITALS: BP 154/73
--- NOTE | 2020-07-03 15:49 | NUR ---
Nursing note: Pt has been very pleasant and med compliant today. She has spent most of the day wheeling herself around the unit. Pt was even seen standing up in her room making her bed this morning. Pt will complain of pain in her feet and ankles when touched, but otherwise does not seem to be bothered by them. She is currently sitting quietly in the hallway. Will continue to monitor.
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
[2020-07-03] MEDS: PHENYTOIN SODIUM EXTENDED 100 MG CAPSULE PO SCH (19:43)
--- NOTE | 2020-07-03 21:06 | PDOC ---
Exam Note: Brooks Note: Please also refer to the separate dictated note~for this date of service dictated separately.~Patient seen individually. Discussed the patient with Nursing staff reviewed the chart.~Reviewed interim history and current functioning. Reviewed vital signs,~Labs/ Radiology~and current medications noted below. Continue current treatment with the changes noted in the dictated addendum note Assessment: Vital Signs/I&O: Current Medications Medications (Trade) Dose Ordered Sig/Kassidy Route PRN Reason Start Time Stop Time Status Last Admin Dose Admin Acetaminophen (Tylenol) 650 mg PRN Q6HRS PRN PO MILD PAIN / TEMP > 100.3'F 06/24/20 00:30 06/30/20 03:41 Multi-Ingredient Ointment (Analgesic [place]) 1 belinda PRN QID PRN TP MUSCLE PAIN 06/24/20 00:30 06/27/20 00:49 Al Hydroxide/Mg Hydroxide (Mylanta Plus Xs) 15 ml PRN AFTMEALHC PRN PO DYSPEPSIA 06/24/20 00:30 Magnesium Hydroxide (Milk Of Magnesia) 2,400 mg PRN QHS PRN PO CONSTIPATION 06/24/20 00:30 Acetaminophen (Tylenol) 650 mg Q4HRS PRN PO pain or fever 06/24/20 00:30 UNV Acetaminophen (Tylenol) 500 mg BID PO 06/24/20 09:00 07/03/20 19:43 Aspirin (Aspirin Chewable) 81 mg DAILY PO 06/24/20 09:00 07/03/20 08:50 Bumetanide (Bumex) 1 mg DAILY PO 06/24/20 09:00 07/03/20 08:57 Cetirizine HCl (ZyrTEC) 5 mg DAILY PO 06/24/20 09:00 07/03/20 08:49 Docusate Sodium (Colace) 100 mg QODAY PO 06/24/20 09:00 07/03/20 08:49 Furosemide (Lasix) 40 mg BID92 PO 06/24/20 09:00 07/03/20 14:18 Levothyroxine Sodium (Synthroid) 50 mcg DAILY06 PO 06/24/20 06:00 07/03/20 06:06 Metolazone (Zaroxolyn) 5 mg QMWF PO 06/25/20 16:00 07/02/20 07:47 Phenytoin Sodium (Dilantin) 50 mg DAILY PO 06/24/20 09:00 06/27/20 19:43 DC 06/27/20 08:39 Phenytoin Sodium (Dilantin) 100 mg BID PO 06/24/20 09:00 06/27/20 19:43 DC 06/27/20 08:39 Potassium Chloride (Klor-Con) 20 meq BID PO 06/24/20 09:00 07/03/20 19:43 Sennosides (Senna) 8.6 mg BID PO 06/24/20 09:00 07/03/20 19:43 Sertraline HCl (Zoloft) 25 mg DAILY PO 06/24/20 09:00 06/25/20 18:31 DC 06/25/20 09:11 Calcium/Vitamin D (Oscal D 500mg/ 200uts) 1 tab DAILY PO 06/24/20 09:00 07/03/20 08:49 Multivitamins/ Calcium (Thera-M Plus) 1 tab DAILY PO 06/24/20 09:00 07/03/20 08:50 Fish Oil (Fish Oil) 1,000 mg DAILY PO 06/24/20 09:00 07/03/20 08:49 Polyethylene Glycol (miraLAX) 17 gm DAILY PO 06/24/20 09:00 07/03/20 08:49 Vitamin D (Vitamin D3) 50,000 unit WEEKLY PO 06/24/20 09:00 07/01/20 07:50 Melatonin (Melatonin) 6 mg PRN QHS PRN PO INSOMNIA 06/24/20 00:30 07/02/20 01:13 Sertraline HCl (Zoloft) 50 mg DAILY PO 06/26/20 09:00 06/28/20 11:00 DC 06/28/20 09:34 Sertraline HCl (Zoloft) 75 mg DAILY PO 06/29/20 09:00 07/03/20 08:50 Phenytoin Sodium (Dilantin) 300 mg QHS PO 06/28/20 21:00 07/03/20 19:43 Vital Signs Date Time Temp Pulse Resp B/P (MAP) Pulse Ox O2 Delivery O2 Flow Rate FiO2 07/03/20 15:46 98.4 66 19 154/73 (100) 94 Room Air I & O 07/02/20 07/02/20 07/03/20 15:00 23:00 07:00 Intake Total 600 ml 220 ml Balance 600 ml 220 ml Current Medications: I have reviewed the current psychotropics carefully including drug interactions. Risk benefit ratio favors no change other than as noted in my dictated progress note. Diagnosis: Problems: (1) Impulse control disorder, unspecified (2) Anxiety disorder, unspecified (3) Dementia, vascular, with depression (4) Dementia, vascular, with delusions (5) MDD (major depressive disorder) (6) Dementia in Alzheimer's disease with depression (7) Dementia in Alzheimer's disease with delusions (8) Major neurocognitive disorder, due to vascular disease, with behavioral disturbance, mild GAMALIEL MALLOY MD Jul 03, 2020 21:06
--- NOTE | 2020-07-03 21:46 | NUR ---
Nursing Note: Pt quietly sitting up in w/c in the hallway at shift change. Pt calm, mostly non-verbal- grunting and pointing in order to make her needs known, responding to name. Pt cooperative with assessment and compliant with medications administered whole. No agitation or aggression noted thus far this shift.
[2020-07-04] MEDS: LEVOTHYROXINE 50 MCG TABLET PO SCH (05:22)
[2020-07-04 06:31] VITALS: BP 151/72
[2020-07-04 06:58] LABS: BACTERIA,URINE FEW /HPF (0-FEW); BILIRUBIN,URINE NEG (NEG); CLARITY,URINE CLOUDY; COLOR,URINE YELLOW; GLUCOSE,URINE NEG (NEG); NITRITE,URINE NEG (NEG); SQUAMOUS EPITHELIAL CELL,UR OCC /LPF; UROBILINOGEN,URINE 0.2 mg/dL (0.2 mg/dL)
[2020-07-04] MEDS: DOCUSATE SODIUM 100 MG CAPSULE PO SCH (09:23)
[2020-07-04] MEDS: ACETAMINOPHEN 500 MG TABLET PO SCH ×2 (09:23→19:28)
[2020-07-04] MEDS: POTASSIUM CHLORIDE 20 MEQ TABLET.ER. PO SCH ×2 (09:23→19:28)
[2020-07-04] MEDS: SENNOSIDES 8.6 MG TABLET PO SCH ×2 (09:23→19:29)
[2020-07-04] MEDS: FUROSEMIDE 40 MG TABLET PO SCH ×2 (09:23→14:08)
[2020-07-04] MEDS: CALCIUM CARB/VIT D3 500/200 TABLET PO SCH (09:23)
[2020-07-04] MEDS: ASPIRIN CHEWABLE 81 MG TABLET. PO SCH (09:23)
[2020-07-04] MEDS: OMEGA-3 FATTY ACIDS/FISH OIL 1,000 MG CAPSULE. PO SCH (09:23)
[2020-07-04] MEDS: MULTIVITAMIN with MINERAL TABLET. PO SCH (09:24)
[2020-07-04] MEDS: CETIRIZINE HCL 10 MG TABLET PO SCH (09:24)
[2020-07-04] MEDS: POLYETHYLENE GLYCOL 3350 17 GM PACKET. PO SCH (09:24)
[2020-07-04] MEDS: SERTRALINE 25 MG TABLET. PO SCH (09:24)
[2020-07-04] MEDS: BUMETANIDE 1 MG TABLET PO SCH (09:24)
[2020-07-04 15:06] VITALS: BP 129/77
[2020-07-04] MEDS: metOLazone 5 MG TABLET PO SCH (17:39)
--- NOTE | 2020-07-04 18:30 | NUR ---
Patient calm, compliant, and cooperative throughout this shift. Assessing orientation is difficult as patient is mostly nonverbal, mostly only answering yes or no type questions. She was cooperative with medications throughout the shift until 1600 meds when she was resistive initially. She spent most of the shift wandering in the west hallway. Will continue to monitor and report to oncoming shift.
[2020-07-04] MEDS: PHENYTOIN SODIUM EXTENDED 100 MG CAPSULE PO SCH (19:29)
--- NOTE | 2020-07-04 21:21 | PDOC ---
Exam Note: Brooks Note: This note is a late entry for 07/02/2020 covers elements not covered in my initial note. Subjective: The patient was reviewed on telehealth rounds in the evening of 07/02/2020 with Bella NEWMAN. Discussed with nursing staff, reviewed the chart. The patient slept 4 hours previous night. Generally per nursing report, the patient has had a good day. She moves herself around the unit in her wheelchair. Review of Systems: Ambulation impaired in wheelchair. No CV, , pulmonary, eye, ENT system symptoms on review. Mental Status Exam: The patient is oriented to herself. Insight and judgment, recent and remote memory, attention and concentration, fund of knowledge is poor consistent with her diagnosis mentioned in my initial note. Laboratory Data: Reviewed. Impression: Major depressive disorder severe. Anxiety disorder unspecified. Major neurocognitive disorder Alzheimer vascular with delusion, depression, behavioral disturbance. Impulse control disorder. Plan: Dr. Tellez is adjusting the patients Dilantin and we are following the Dilantin level. Continue rest of the psychotropics unchanged. Assessment: Vital Signs/I&O: VS - Last 72 Hours, by Label Date Time Temp Pulse Resp B/P (MAP) Pulse Ox O2 Delivery O2 Flow Rate FiO2 07/04/20 15:06 97.5 82 18 129/77 (94) 90 07/04/20 06:31 97.4 67 20 151/72 (98) 95 Room Air 07/03/20 15:46 98.4 66 19 154/73 (100) 94 Room Air 07/03/20 06:40 98.1 74 19 135/71 (92) 96 Room Air 07/02/20 16:01 98.1 78 18 115/76 (89) 96 07/02/20 05:58 98.3 61 18 138/64 (88) 96 Vital Signs Date Time Temp Pulse Resp B/P (MAP) Pulse Ox O2 Delivery O2 Flow Rate FiO2 07/04/20 15:06 97.5 82 18 129/77 (94) 90 07/04/20 06:31 Room Air I & O 07/03/20 07/03/20 07/04/20 15:00 23:00 07:00 Intake Total 480 ml 100 ml Balance 480 ml 100 ml Labs: Laboratory Tests Test 07/04/20 05:55 Urine Collection Type U cath Urine Color Yellow Urine Clarity Cloudy Urine pH 6.5 Urine Specific [place] 1.025 Urine Protein Neg (NEG-TRACE) Urine Glucose (UA) Neg mg/dL (NEG) Urine Ketones (Stick) Neg mg/dL (NEG) Urine Blood Small (NEG) Urine Nitrite Neg (NEG) Urine Bilirubin Neg (NEG) Urine Urobilinogen Dipstick 0.2 mg/dL (0.2 mg/dL) Urine Leukocyte Esterase Small (NEG) Urine RBC 3-5 /HPF (0-2) Urine WBC 11-20 /HPF (0-4) Urine Squamous Epithelial Cells Occ /LPF Urine Bacteria Few /HPF (0-FEW) Current Medications: Meds: Laboratory Tests Test 07/04/20 05:55 Urine Collection Type U cath Urine Color Yellow Urine Clarity Cloudy Urine pH 6.5 Urine Specific [place] 1.025 Urine Protein Neg Urine Glucose (UA) Neg mg/dL Urine Ketones (Stick) Neg mg/dL Urine Blood Small Urine Nitrite Neg Urine Bilirubin Neg Urine Urobilinogen Dipstick 0.2 mg/dL Urine Leukocyte Esterase Small Urine RBC 3-5 /HPF Urine WBC 11-20 /HPF Urine Squamous Epithelial Cells Occ /LPF Urine Bacteria Few /HPF Current Medications Medications (Trade) Dose Ordered Sig/Kassidy Route PRN Reason Start Time Stop Time Status Last Admin Dose Admin Acetaminophen (Tylenol) 650 mg PRN Q6HRS PRN PO MILD PAIN / TEMP > 100.3'F 06/24/20 00:30 06/30/20 03:41 Multi-Ingredient Ointment (Analgesic [place]) 1 belinda PRN QID PRN TP MUSCLE PAIN 06/24/20 00:30 06/27/20 00:49 Al Hydroxide/Mg Hydroxide (Mylanta Plus Xs) 15 ml PRN AFTMEALHC PRN PO DYSPEPSIA 06/24/20 00:30 Magnesium Hydroxide (Milk Of Magnesia) 2,400 mg PRN QHS PRN PO CONSTIPATION 06/24/20 00:30 Acetaminophen (Tylenol) 650 mg Q4HRS PRN PO pain or fever 06/24/20 00:30 UNV Acetaminophen (Tylenol) 500 mg BID PO 06/24/20 09:00 07/04/20 19:28 Aspirin (Aspirin Chewable) 81 mg DAILY PO 06/24/20 09:00 07/04/20 09:23 Bumetanide (Bumex) 1 mg DAILY PO 06/24/20 09:00 07/04/20 09:24 Cetirizine HCl (ZyrTEC) 5 mg DAILY PO 06/24/20 09:00 07/04/20 09:24 Docusate Sodium (Colace) 100 mg QODAY PO 06/24/20 09:00 07/04/20 09:23 Furosemide (Lasix) 40 mg BID92 PO 06/24/20 09:00 07/04/20 14:08 Levothyroxine Sodium (Synthroid) 50 mcg DAILY06 PO 06/24/20 06:00 07/04/20 05:22 Metolazone (Zaroxolyn) 5 mg QMWF PO 06/25/20 16:00 07/04/20 17:39 Phenytoin Sodium (Dilantin) 50 mg DAILY PO 06/24/20 09:00 06/27/20 19:43 DC 06/27/20 08:39 Phenytoin Sodium (Dilantin) 100 mg BID PO 06/24/20 09:00 06/27/20 19:43 DC 06/27/20 08:39 Potassium Chloride (Klor-Con) 20 meq BID PO 06/24/20 09:00 07/04/20 19:28 Sennosides (Senna) 8.6 mg BID PO 06/24/20 09:00 07/04/20 19:29 Sertraline HCl (Zoloft) 25 mg DAILY PO 06/24/20 09:00 06/25/20 18:31 DC 06/25/20 09:11 Calcium/Vitamin D (Oscal D 500mg/ 200uts) 1 tab DAILY PO 06/24/20 09:00 07/04/20 09:23 Multivitamins/ Calcium (Thera-M Plus) 1 tab DAILY PO 06/24/20 09:00 07/04/20 09:24 Fish Oil (Fish Oil) 1,000 mg DAILY PO 06/24/20 09:00 07/04/20 09:23 Polyethylene Glycol (miraLAX) 17 gm DAILY PO 06/24/20 09:00 07/04/20 09:24 Vitamin D (Vitamin D3) 50,000 unit WEEKLY PO 06/24/20 09:00 07/01/20 07:50 Melatonin (Melatonin) 6 mg PRN QHS PRN PO INSOMNIA 06/24/20 00:30 07/02/20 01:13 Sertraline HCl (Zoloft) 50 mg DAILY PO 06/26/20 09:00 06/28/20 11:00 DC 06/28/20 09:34 Sertraline HCl (Zoloft) 75 mg DAILY PO 06/29/20 09:00 07/04/20 09:24 Phenytoin Sodium (Dilantin) 300 mg QHS PO 06/28/20 21:00 07/04/20 19:29 I have reviewed the current psychotropics carefully including drug interactions. Risk benefit ratio favors no change other than as noted in my dictated progress note. Diagnosis: Problems: (1) Impulse control disorder, unspecified (2) Anxiety disorder, unspecified (3) Dementia, vascular, with depression (4) Dementia, vascular, with delusions (5) MDD (major depressive disorder) (6) Dementia in Alzheimer's disease with depression (7) Dementia in Alzheimer's disease with delusions (8) Major neurocognitive disorder, due to vascular disease, with behavioral disturbance, mild GAMALIEL MALLOY MD Jul 04, 2020 21:21
--- NOTE | 2020-07-04 21:46 | PDOC ---
Exam Note: Brooks Note: This note is a late entry for 07/03/2020 covers elements not covered in my initial note. Subjective: The patient was reviewed on telehealth rounds in the morning of 07/03/2020 for a treatment team meeting with Angela Ochoa and Katty (drug abuse social worker), Rina, activity therapy and Bella NEWMAN. Discussed with nursing staff, reviewed the chart. The patient slept 6-1/4 hours previous night. The patients sister Fariba and zhangece Santos attended as well. Appetite is 75%. We will repeat UA since the previous one was contaminated and family expressed concerns that UTI in the past has worsened her behaviors. Generally she is doing much better. Review of Systems: Ambulation impaired in wheelchair. No CV, , pulmonary, eye, ENT system symptoms on review. Mental Status Exam: The patient is oriented to herself. Often verbal response is monosyllabic, if that mainly non-verbal. Insight and judgment, recent and remote memory, attention and concentration, fund of knowledge is poor consistent with her diagnosis mentioned. No suicidal or homicidal ideation. Laboratory Data: Reviewed. Impression: Major depressive disorder severe. Anxiety disorder unspecified. Major neurocognitive disorder Alzheimer vascular with delusion, depression, behavioral disturbance. Impulse control disorder. Plan: No change from initial note. Assessment: Vital Signs/I&O: Vital Signs Date Time Temp Pulse Resp B/P (MAP) Pulse Ox O2 Delivery O2 Flow Rate FiO2 07/04/20 15:06 97.5 82 18 129/77 (94) 90 07/04/20 06:31 Room Air I & O 07/03/20 07/03/20 07/04/20 15:00 23:00 07:00 Intake Total 480 ml 100 ml Balance 480 ml 100 ml Labs: Laboratory Tests Test 07/04/20 05:55 Urine Collection Type U cath Urine Color Yellow Urine Clarity Cloudy Urine pH 6.5 Urine Specific [place] 1.025 Urine Protein Neg (NEG-TRACE) Urine Glucose (UA) Neg mg/dL (NEG) Urine Ketones (Stick) Neg mg/dL (NEG) Urine Blood Small (NEG) Urine Nitrite Neg (NEG) Urine Bilirubin Neg (NEG) Urine Urobilinogen Dipstick 0.2 mg/dL (0.2 mg/dL) Urine Leukocyte Esterase Small (NEG) Urine RBC 3-5 /HPF (0-2) Urine WBC 11-20 /HPF (0-4) Urine Squamous Epithelial Cells Occ /LPF Urine Bacteria Few /HPF (0-FEW) Current Medications: Meds: Laboratory Tests Test 07/04/20 05:55 Urine Collection Type U cath Urine Color Yellow Urine Clarity Cloudy Urine pH 6.5 Urine Specific [place] 1.025 Urine Protein Neg Urine Glucose (UA) Neg mg/dL Urine Ketones (Stick) Neg mg/dL Urine Blood Small Urine Nitrite Neg Urine Bilirubin Neg Urine Urobilinogen Dipstick 0.2 mg/dL Urine Leukocyte Esterase Small Urine RBC 3-5 /HPF Urine WBC 11-20 /HPF Urine Squamous Epithelial Cells Occ /LPF Urine Bacteria Few /HPF Current Medications Medications (Trade) Dose Ordered Sig/Kassidy Route PRN Reason Start Time Stop Time Status Last Admin Dose Admin Acetaminophen (Tylenol) 650 mg PRN Q6HRS PRN PO MILD PAIN / TEMP > 100.3'F 06/24/20 00:30 06/30/20 03:41 Multi-Ingredient Ointment (Analgesic [place]) 1 belinda PRN QID PRN TP MUSCLE PAIN 06/24/20 00:30 06/27/20 00:49 Al Hydroxide/Mg Hydroxide (Mylanta Plus Xs) 15 ml PRN AFTMEALHC PRN PO DYSPEPSIA 06/24/20 00:30 Magnesium Hydroxide (Milk Of Magnesia) 2,400 mg PRN QHS PRN PO CONSTIPATION 06/24/20 00:30 Acetaminophen (Tylenol) 650 mg Q4HRS PRN PO pain or fever 06/24/20 00:30 UNV Acetaminophen (Tylenol) 500 mg BID PO 06/24/20 09:00 07/04/20 19:28 Aspirin (Aspirin Chewable) 81 mg DAILY PO 06/24/20 09:00 07/04/20 09:23 Bumetanide (Bumex) 1 mg DAILY PO 06/24/20 09:00 07/04/20 09:24 Cetirizine HCl (ZyrTEC) 5 mg DAILY PO 06/24/20 09:00 07/04/20 09:24 Docusate Sodium (Colace) 100 mg QODAY PO 06/24/20 09:00 07/04/20 09:23 Furosemide (Lasix) 40 mg BID92 PO 06/24/20 09:00 07/04/20 14:08 Levothyroxine Sodium (Synthroid) 50 mcg DAILY06 PO 06/24/20 06:00 07/04/20 05:22 Metolazone (Zaroxolyn) 5 mg QMWF PO 06/25/20 16:00 07/04/20 17:39 Phenytoin Sodium (Dilantin) 50 mg DAILY PO 06/24/20 09:00 06/27/20 19:43 DC 06/27/20 08:39 Phenytoin Sodium (Dilantin) 100 mg BID PO 06/24/20 09:00 06/27/20 19:43 DC 06/27/20 08:39 Potassium Chloride (Klor-Con) 20 meq BID PO 06/24/20 09:00 07/04/20 19:28 Sennosides (Senna) 8.6 mg BID PO 06/24/20 09:00 07/04/20 19:29 Sertraline HCl (Zoloft) 25 mg DAILY PO 06/24/20 09:00 06/25/20 18:31 DC 06/25/20 09:11 Calcium/Vitamin D (Oscal D 500mg/ 200uts) 1 tab DAILY PO 06/24/20 09:00 07/04/20 09:23 Multivitamins/ Calcium (Thera-M Plus) 1 tab DAILY PO 06/24/20 09:00 07/04/20 09:24 Fish Oil (Fish Oil) 1,000 mg DAILY PO 06/24/20 09:00 07/04/20 09:23 Polyethylene Glycol (miraLAX) 17 gm DAILY PO 06/24/20 09:00 07/04/20 09:24 Vitamin D (Vitamin D3) 50,000 unit WEEKLY PO 06/24/20 09:00 07/01/20 07:50 Melatonin (Melatonin) 6 mg PRN QHS PRN PO INSOMNIA 06/24/20 00:30 07/02/20 01:13 Sertraline HCl (Zoloft) 50 mg DAILY PO 06/26/20 09:00 06/28/20 11:00 DC 06/28/20 09:34 Sertraline HCl (Zoloft) 75 mg DAILY PO 06/29/20 09:00 07/04/20 09:24 Phenytoin Sodium (Dilantin) 300 mg QHS PO 06/28/20 21:00 07/04/20 19:29 I have reviewed the current psychotropics carefully including drug interactions. Risk benefit ratio favors no change other than as noted in my dictated progress note. Diagnosis: Problems: (1) Impulse control disorder, unspecified (2) Anxiety disorder, unspecified (3) Dementia, vascular, with depression (4) Dementia, vascular, with delusions (5) MDD (major depressive disorder) (6) Dementia in Alzheimer's disease with depression (7) Dementia in Alzheimer's disease with delusions (8) Major neurocognitive disorder, due to vascular disease, with behavioral disturbance, mild GAMALIEL MALLOY MD Jul 04, 2020 21:46
--- NOTE | 2020-07-04 22:01 | PDOC ---
Exam Note: Brooks Note: Please also refer to the separate dictated note~for this date of service dictated separately.~Patient seen individually. Discussed the patient with Nursing staff reviewed the chart.~Reviewed interim history and current functioning. Reviewed vital signs,~Labs/ Radiology~and current medications noted below. Continue current treatment with the changes noted in the dictated addendum note Assessment: Vital Signs/I&O: Vital Signs Date Time Temp Pulse Resp B/P (MAP) Pulse Ox O2 Delivery O2 Flow Rate FiO2 07/04/20 15:06 97.5 82 18 129/77 (94) 90 07/04/20 06:31 Room Air I & O 07/03/20 07/03/20 07/04/20 15:00 23:00 07:00 Intake Total 480 ml 100 ml Balance 480 ml 100 ml Labs: Laboratory Tests Test 07/04/20 05:55 Urine Collection Type U cath Urine Color Yellow Urine Clarity Cloudy Urine pH 6.5 Urine Specific [place] 1.025 Urine Protein Neg (NEG-TRACE) Urine Glucose (UA) Neg mg/dL (NEG) Urine Ketones (Stick) Neg mg/dL (NEG) Urine Blood Small (NEG) Urine Nitrite Neg (NEG) Urine Bilirubin Neg (NEG) Urine Urobilinogen Dipstick 0.2 mg/dL (0.2 mg/dL) Urine Leukocyte Esterase Small (NEG) Urine RBC 3-5 /HPF (0-2) Urine WBC 11-20 /HPF (0-4) Urine Squamous Epithelial Cells Occ /LPF Urine Bacteria Few /HPF (0-FEW) Current Medications: Meds: Laboratory Tests Test 07/04/20 05:55 Urine Collection Type U cath Urine Color Yellow Urine Clarity Cloudy Urine pH 6.5 Urine Specific [place] 1.025 Urine Protein Neg Urine Glucose (UA) Neg mg/dL Urine Ketones (Stick) Neg mg/dL Urine Blood Small Urine Nitrite Neg Urine Bilirubin Neg Urine Urobilinogen Dipstick 0.2 mg/dL Urine Leukocyte Esterase Small Urine RBC 3-5 /HPF Urine WBC 11-20 /HPF Urine Squamous Epithelial Cells Occ /LPF Urine Bacteria Few /HPF Current Medications Medications (Trade) Dose Ordered Sig/Kassidy Route PRN Reason Start Time Stop Time Status Last Admin Dose Admin Acetaminophen (Tylenol) 650 mg PRN Q6HRS PRN PO MILD PAIN / TEMP > 100.3'F 06/24/20 00:30 06/30/20 03:41 Multi-Ingredient Ointment (Analgesic [place]) 1 belinda PRN QID PRN TP MUSCLE PAIN 06/24/20 00:30 06/27/20 00:49 Al Hydroxide/Mg Hydroxide (Mylanta Plus Xs) 15 ml PRN AFTMEALHC PRN PO DYSPEPSIA 06/24/20 00:30 Magnesium Hydroxide (Milk Of Magnesia) 2,400 mg PRN QHS PRN PO CONSTIPATION 06/24/20 00:30 Acetaminophen (Tylenol) 650 mg Q4HRS PRN PO pain or fever 06/24/20 00:30 UNV Acetaminophen (Tylenol) 500 mg BID PO 06/24/20 09:00 07/04/20 19:28 Aspirin (Aspirin Chewable) 81 mg DAILY PO 06/24/20 09:00 07/04/20 09:23 Bumetanide (Bumex) 1 mg DAILY PO 06/24/20 09:00 07/04/20 09:24 Cetirizine HCl (ZyrTEC) 5 mg DAILY PO 06/24/20 09:00 07/04/20 09:24 Docusate Sodium (Colace) 100 mg QODAY PO 06/24/20 09:00 07/04/20 09:23 Furosemide (Lasix) 40 mg BID92 PO 06/24/20 09:00 07/04/20 14:08 Levothyroxine Sodium (Synthroid) 50 mcg DAILY06 PO 06/24/20 06:00 07/04/20 05:22 Metolazone (Zaroxolyn) 5 mg QMWF PO 06/25/20 16:00 07/04/20 17:39 Phenytoin Sodium (Dilantin) 50 mg DAILY PO 06/24/20 09:00 06/27/20 19:43 DC 06/27/20 08:39 Phenytoin Sodium (Dilantin) 100 mg BID PO 06/24/20 09:00 06/27/20 19:43 DC 06/27/20 08:39 Potassium Chloride (Klor-Con) 20 meq BID PO 06/24/20 09:00 07/04/20 19:28 Sennosides (Senna) 8.6 mg BID PO 06/24/20 09:00 1/1/21 19:29 Sertraline HCl (Zoloft) 25 mg DAILY PO 06/24/20 09:00 06/25/20 18:31 DC 06/25/20 09:11 Calcium/Vitamin D (Oscal D 500mg/ 200uts) 1 tab DAILY PO 06/24/20 09:00 07/04/20 09:23 Multivitamins/ Calcium (Thera-M Plus) 1 tab DAILY PO 06/24/20 09:00 07/04/20 09:24 Fish Oil (Fish Oil) 1,000 mg DAILY PO 06/24/20 09:00 07/04/20 09:23 Polyethylene Glycol (miraLAX) 17 gm DAILY PO 06/24/20 09:00 07/04/20 09:24 Vitamin D (Vitamin D3) 50,000 unit WEEKLY PO 06/24/20 09:00 07/01/20 07:50 Melatonin (Melatonin) 6 mg PRN QHS PRN PO INSOMNIA 06/24/20 00:30 07/02/20 01:13 Sertraline HCl (Zoloft) 50 mg DAILY PO 06/26/20 09:00 06/28/20 11:00 DC 06/28/20 09:34 Sertraline HCl (Zoloft) 75 mg DAILY PO 06/29/20 09:00 07/04/20 09:24 Phenytoin Sodium (Dilantin) 300 mg QHS PO 06/28/20 21:00 07/04/20 19:29 I have reviewed the current psychotropics carefully including drug interactions. Risk benefit ratio favors no change other than as noted in my dictated progress note. Diagnosis: Problems: (1) Impulse control disorder, unspecified (2) Anxiety disorder, unspecified (3) Dementia, vascular, with depression (4) Dementia, vascular, with delusions (5) MDD (major depressive disorder) (6) Dementia in Alzheimer's disease with depression (7) Dementia in Alzheimer's disease with delusions (8) Major neurocognitive disorder, due to vascular disease, with behavioral disturbance, mild GAMALIEL MALLOY MD Jul 04, 2020 22:01
--- NOTE | 2020-07-04 23:59 | NUR ---
Patient is in her room on assumption of care, sitting in her wheelchair coloring. She is in pleasant spirits. Compliant with medications whole. Non-verbal, but makes her needs known with grunts and gesturing. Cooperative with HS cares. No agitation. Does not appear to be experiencing any pain or discomfort. Patient appears to be sleeping comfortably at present time. Will continue to monitor.
[2020-07-05] MEDS: LEVOTHYROXINE 50 MCG TABLET PO SCH (04:42)
[2020-07-05 06:01] VITALS: BP 128/69
[2020-07-05] MEDS: POLYETHYLENE GLYCOL 3350 17 GM PACKET. PO SCH (08:32)
[2020-07-05] MEDS: MULTIVITAMIN with MINERAL TABLET. PO SCH (08:33)
[2020-07-05] MEDS: OMEGA-3 FATTY ACIDS/FISH OIL 1,000 MG CAPSULE. PO SCH (08:33)
[2020-07-05] MEDS: POTASSIUM CHLORIDE 20 MEQ TABLET.ER. PO SCH ×2 (08:33→19:46)
[2020-07-05] MEDS: ACETAMINOPHEN 500 MG TABLET PO SCH ×2 (08:33→19:46)
[2020-07-05] MEDS: FUROSEMIDE 40 MG TABLET PO SCH ×2 (08:33→11:55)
[2020-07-05] MEDS: SENNOSIDES 8.6 MG TABLET PO SCH ×2 (08:33→19:47)
[2020-07-05] MEDS: CETIRIZINE HCL 10 MG TABLET PO SCH (08:33)
[2020-07-05] MEDS: SERTRALINE 25 MG TABLET. PO SCH (08:33)
[2020-07-05] MEDS: ASPIRIN CHEWABLE 81 MG TABLET. PO SCH (08:33)
[2020-07-05] MEDS: CALCIUM CARB/VIT D3 500/200 TABLET PO SCH (08:33)
[2020-07-05] MEDS: BUMETANIDE 1 MG TABLET PO SCH (08:34)
--- NOTE | 2020-07-05 09:56 | NUR ---
patient cooperative this morning. patient cheerful talking about snow.
[2020-07-05 15:00] VITALS: BP 142/84
[2020-07-05] MEDS: PHENYTOIN SODIUM EXTENDED 100 MG CAPSULE PO SCH (19:47)
[2020-07-05] MEDS: MIRTAZAPINE 7.5 MG TABLET. PO SCH (19:47)
--- NOTE | 2020-07-05 21:13 | PDOC ---
Exam Note: Brooks Note: Please also refer to the separate dictated note~for this date of service dictated separately.~Patient seen individually. Discussed the patient with Nursing staff reviewed the chart.~Reviewed interim history and current functioning. Reviewed vital signs,~Labs/ Radiology~and current medications noted below. Continue current treatment with the changes noted in the dictated addendum note Assessment: Vital Signs/I&O: Vital Signs Date Time Temp Pulse Resp B/P (MAP) Pulse Ox O2 Delivery O2 Flow Rate FiO2 07/05/20 15:00 97.6 94 20 142/84 (103) 96 Room Air I & O 07/04/20 07/04/20 07/05/20 15:00 23:00 07:00 Intake Total 580 ml 360 ml 360 ml Balance 580 ml 360 ml 360 ml Current Medications: Meds: Current Medications Medications (Trade) Dose Ordered Sig/Kassidy Route PRN Reason Start Time Stop Time Status Last Admin Dose Admin Acetaminophen (Tylenol) 650 mg PRN Q6HRS PRN PO MILD PAIN / TEMP > 100.3'F 06/24/20 00:30 06/30/20 03:41 Multi-Ingredient Ointment (Analgesic [place]) 1 belinda PRN QID PRN TP MUSCLE PAIN 06/24/20 00:30 06/27/20 00:49 Al Hydroxide/Mg Hydroxide (Mylanta Plus Xs) 15 ml PRN AFTMEALHC PRN PO DYSPEPSIA 06/24/20 00:30 Magnesium Hydroxide (Milk Of Magnesia) 2,400 mg PRN QHS PRN PO CONSTIPATION 06/24/20 00:30 Acetaminophen (Tylenol) 650 mg Q4HRS PRN PO pain or fever 06/24/20 00:30 UNV Acetaminophen (Tylenol) 500 mg BID PO 06/24/20 09:00 07/05/20 19:46 Aspirin (Aspirin Chewable) 81 mg DAILY PO 06/24/20 09:00 07/05/20 08:33 Bumetanide (Bumex) 1 mg DAILY PO 06/24/20 09:00 07/05/20 08:34 Cetirizine HCl (ZyrTEC) 5 mg DAILY PO 06/24/20 09:00 07/05/20 08:33 Docusate Sodium (Colace) 100 mg QODAY PO 06/24/20 09:00 07/04/20 09:23 Furosemide (Lasix) 40 mg BID92 PO 06/24/20 09:00 07/05/20 11:55 Levothyroxine Sodium (Synthroid) 50 mcg DAILY06 PO 06/24/20 06:00 07/05/20 04:42 Metolazone (Zaroxolyn) 5 mg QMWF PO 06/25/20 16:00 07/04/20 17:39 Phenytoin Sodium (Dilantin) 50 mg DAILY PO 06/24/20 09:00 06/27/20 19:43 DC 06/27/20 08:39 Phenytoin Sodium (Dilantin) 100 mg BID PO 06/24/20 09:00 06/27/20 19:43 DC 06/27/20 08:39 Potassium Chloride (Klor-Con) 20 meq BID PO 06/24/20 09:00 07/05/20 19:46 Sennosides (Senna) 8.6 mg BID PO 06/24/20 09:00 07/05/20 19:47 Sertraline HCl (Zoloft) 25 mg DAILY PO 06/24/20 09:00 06/25/20 18:31 DC 06/25/20 09:11 Calcium/Vitamin D (Oscal D 500mg/ 200uts) 1 tab DAILY PO 06/24/20 09:00 07/05/20 08:33 Multivitamins/ Calcium (Thera-M Plus) 1 tab DAILY PO 06/24/20 09:00 07/05/20 08:33 Fish Oil (Fish Oil) 1,000 mg DAILY PO 06/24/20 09:00 07/05/20 08:33 Polyethylene Glycol (miraLAX) 17 gm DAILY PO 06/24/20 09:00 07/05/20 08:32 Vitamin D (Vitamin D3) 50,000 unit WEEKLY PO 06/24/20 09:00 07/01/20 07:50 Melatonin (Melatonin) 6 mg PRN QHS PRN PO INSOMNIA 06/24/20 00:30 07/02/20 01:13 Sertraline HCl (Zoloft) 50 mg DAILY PO 06/26/20 09:00 06/28/20 11:00 DC 06/28/20 09:34 Sertraline HCl (Zoloft) 75 mg DAILY PO 06/29/20 09:00 07/05/20 08:33 Phenytoin Sodium (Dilantin) 300 mg QHS PO 06/28/20 21:00 07/05/20 19:47 Mirtazapine (Remeron) 7.5 mg QHS PO 07/05/20 21:00 07/05/20 19:47 Current Medications Medications (Trade) Dose Ordered Sig/Kassidy Route PRN Reason Start Time Stop Time Status Last Admin Dose Admin Mirtazapine (Remeron) 7.5 mg QHS PO 07/05/20 21:00 07/05/20 19:47 I have reviewed the current psychotropics carefully including drug interactions. Risk benefit ratio favors no change other than as noted in my dictated progress note. Diagnosis: Problems: (1) Impulse control disorder, unspecified (2) Anxiety disorder, unspecified (3) Dementia, vascular, with depression (4) Dementia, vascular, with delusions (5) MDD (major depressive disorder) (6) Dementia in Alzheimer's disease with depression (7) Dementia in Alzheimer's disease with delusions (8) Major neurocognitive disorder, due to vascular disease, with behavioral disturbance, mild GAMALIEL MALLOY MD Jul 05, 2020 21:13
[2020-07-06] MEDS: LEVOTHYROXINE 50 MCG TABLET PO SCH (05:03)
[2020-07-06 05:50] VITALS: BP 120/63
--- NOTE | 2020-07-06 08:58 | PDOC ---
Exam Note: Brooks Note: This note is a late entry for 07/04/2020 covers elements not covered in my initial note. Subjective: The patient was reviewed on telehealth rounds in the evening of 07/04/2020 with Sunday NEWMAN. Discussed with nursing staff, reviewed the chart. The patient slept 6-1/2 hours previous night. She has been calm, wandering the hallways, redirectable. Review of Systems: Ambulation impaired in wheelchair. No CV, , pulmonary, eye, ENT system symptoms on review. Mental Status Exam: The patient is oriented to herself. Often verbal response is monosyllabic, grunting, non-verbal mainly. Insight and judgment, recent and remote memory, attention and concentration, fund of knowledge is poor consistent with her diagnosis. Laboratory Data: Reviewed. Impression: Major depressive disorder severe. Anxiety disorder unspecified. Major neurocognitive disorder Alzheimer vascular with delusion, depression, behavioral disturbance. Impulse control disorder. Plan: No change from initial note. Assessment: Vital Signs/I&O: Vital Signs Date Time Temp Pulse Resp B/P (MAP) Pulse Ox O2 Delivery O2 Flow Rate FiO2 07/06/20 05:50 97.3 67 16 120/63 (82) 98 07/05/20 15:00 Room Air I & O 07/05/20 07/05/20 07/06/20 15:00 23:00 07:00 Intake Total 460 ml 480 ml Balance 460 ml 480 ml Current Medications: Meds: Current Medications Medications (Trade) Dose Ordered Sig/Kassidy Route PRN Reason Start Time Stop Time Status Last Admin Dose Admin Acetaminophen (Tylenol) 650 mg PRN Q6HRS PRN PO MILD PAIN / TEMP > 100.3'F 06/24/20 00:30 06/30/20 03:41 Multi-Ingredient Ointment (Analgesic [place]) 1 belinda PRN QID PRN TP MUSCLE PAIN 06/24/20 00:30 06/27/20 00:49 Al Hydroxide/Mg Hydroxide (Mylanta Plus Xs) 15 ml PRN AFTMEALHC PRN PO DYSPEPSIA 06/24/20 00:30 Magnesium Hydroxide (Milk Of Magnesia) 2,400 mg PRN QHS PRN PO CONSTIPATION 06/24/20 00:30 Acetaminophen (Tylenol) 650 mg Q4HRS PRN PO pain or fever 06/24/20 00:30 UNV Acetaminophen (Tylenol) 500 mg BID PO 06/24/20 09:00 07/05/20 19:46 Aspirin (Aspirin Chewable) 81 mg DAILY PO 06/24/20 09:00 07/05/20 08:33 Bumetanide (Bumex) 1 mg DAILY PO 06/24/20 09:00 07/05/20 08:34 Cetirizine HCl (ZyrTEC) 5 mg DAILY PO 06/24/20 09:00 07/05/20 08:33 Docusate Sodium (Colace) 100 mg QODAY PO 06/24/20 09:00 07/04/20 09:23 Furosemide (Lasix) 40 mg BID92 PO 06/24/20 09:00 07/05/20 11:55 Levothyroxine Sodium (Synthroid) 50 mcg DAILY06 PO 06/24/20 06:00 07/06/20 05:03 Metolazone (Zaroxolyn) 5 mg QMWF PO 06/25/20 16:00 07/04/20 17:39 Phenytoin Sodium (Dilantin) 50 mg DAILY PO 06/24/20 09:00 06/27/20 19:43 DC 06/27/20 08:39 Phenytoin Sodium (Dilantin) 100 mg BID PO 06/24/20 09:00 06/27/20 19:43 DC 06/27/20 08:39 Potassium Chloride (Klor-Con) 20 meq BID PO 06/24/20 09:00 07/05/20 19:46 Sennosides (Senna) 8.6 mg BID PO 06/24/20 09:00 07/05/20 19:47 Sertraline HCl (Zoloft) 25 mg DAILY PO 06/24/20 09:00 06/25/20 18:31 DC 06/25/20 09:11 Calcium/Vitamin D (Oscal D 500mg/ 200uts) 1 tab DAILY PO 06/24/20 09:00 07/05/20 08:33 Multivitamins/ Calcium (Thera-M Plus) 1 tab DAILY PO 06/24/20 09:00 07/05/20 08:33 Fish Oil (Fish Oil) 1,000 mg DAILY PO 06/24/20 09:00 07/05/20 08:33 Polyethylene Glycol (miraLAX) 17 gm DAILY PO 06/24/20 09:00 07/05/20 08:32 Vitamin D (Vitamin D3) 50,000 unit WEEKLY PO 06/24/20 09:00 07/01/20 07:50 Melatonin (Melatonin) 6 mg PRN QHS PRN PO INSOMNIA 06/24/20 00:30 07/02/20 01:13 Sertraline HCl (Zoloft) 50 mg DAILY PO 06/26/20 09:00 06/28/20 11:00 DC 06/28/20 09:34 Sertraline HCl (Zoloft) 75 mg DAILY PO 06/29/20 09:00 07/05/20 08:33 Phenytoin Sodium (Dilantin) 300 mg QHS PO 06/28/20 21:00 07/05/20 19:47 Mirtazapine (Remeron) 7.5 mg QHS PO 07/05/20 21:00 07/05/20 19:47 Current Medications Medications (Trade) Dose Ordered Sig/Kassidy Route PRN Reason Start Time Stop Time Status Last Admin Dose Admin Mirtazapine (Remeron) 7.5 mg QHS PO 07/05/20 21:00 07/05/20 19:47 I have reviewed the current psychotropics carefully including drug interactions. Risk benefit ratio favors no change other than as noted in my dictated progress note. Diagnosis: Problems: (1) Impulse control disorder, unspecified (2) Anxiety disorder, unspecified (3) Dementia, vascular, with depression (4) Dementia, vascular, with delusions (5) MDD (major depressive disorder) (6) Dementia in Alzheimer's disease with depression (7) Dementia in Alzheimer's disease with delusions (8) Major neurocognitive disorder, due to vascular disease, with behavioral disturbance, mild GAMA,GAMALIEL Rey MD Jul 06, 2020 08:58
--- NOTE | 2020-07-06 09:15 | PDOC ---
Exam Note: Brooks Note: This note is a late entry for 07/05/2020 covers elements not covered in my initial note. Subjective: The patient was reviewed on telehealth rounds in the evening of 07/05/2020 with Zachery NEWMAN. Discussed with nursing staff, reviewed the chart. The patient slept 7 hours previous night. UA has been done. Results awaited. Dilantin level 8.9. Defer to Dr. Tellez. She has refused to eat during the day, somewhat anxious, restless. Review of Systems: Ambulation impaired in wheelchair. No CV, , pulmonary, eye, ENT system symptoms on review. Mental Status Exam: The patient is oriented to herself. Insight and judgment, recent and remote memory, attention and concentration, fund of knowledge is poor consistent with her diagnosis mentioned. Laboratory Data: Reviewed. Impression: Major depressive disorder severe. Anxiety disorder unspecified. Major neurocognitive disorder Alzheimer vascular with delusion, depression, behavioral disturbance. Impulse control disorder. Plan: No change from initial note. We will go ahead and add Remeron 7.5 mg h.s. to help her intermittent insomnia, anxiety, mood symptoms and help stimulate her appetite. Continue rest unchanged. Assessment: Vital Signs/I&O: Vital Signs Date Time Temp Pulse Resp B/P (MAP) Pulse Ox O2 Delivery O2 Flow Rate FiO2 07/06/20 05:50 97.3 67 16 120/63 (82) 98 07/05/20 15:00 Room Air I & O 07/05/20 07/05/20 07/06/20 15:00 23:00 07:00 Intake Total 460 ml 480 ml Balance 460 ml 480 ml Current Medications: Meds: Current Medications Medications (Trade) Dose Ordered Sig/Kassidy Route PRN Reason Start Time Stop Time Status Last Admin Dose Admin Acetaminophen (Tylenol) 650 mg PRN Q6HRS PRN PO MILD PAIN / TEMP > 100.3'F 06/24/20 00:30 06/30/20 03:41 Multi-Ingredient Ointment (Analgesic [place]) 1 belinda PRN QID PRN TP MUSCLE PAIN 06/24/20 00:30 06/27/20 00:49 Al Hydroxide/Mg Hydroxide (Mylanta Plus Xs) 15 ml PRN AFTMEALHC PRN PO DYSPEPSIA 06/24/20 00:30 Magnesium Hydroxide (Milk Of Magnesia) 2,400 mg PRN QHS PRN PO CONSTIPATION 06/24/20 00:30 Acetaminophen (Tylenol) 650 mg Q4HRS PRN PO pain or fever 06/24/20 00:30 UNV Acetaminophen (Tylenol) 500 mg BID PO 06/24/20 09:00 07/05/20 19:46 Aspirin (Aspirin Chewable) 81 mg DAILY PO 06/24/20 09:00 07/05/20 08:33 Bumetanide (Bumex) 1 mg DAILY PO 06/24/20 09:00 07/05/20 08:34 Cetirizine HCl (ZyrTEC) 5 mg DAILY PO 06/24/20 09:00 07/05/20 08:33 Docusate Sodium (Colace) 100 mg QODAY PO 06/24/20 09:00 07/04/20 09:23 Furosemide (Lasix) 40 mg BID92 PO 06/24/20 09:00 07/05/20 11:55 Levothyroxine Sodium (Synthroid) 50 mcg DAILY06 PO 06/24/20 06:00 07/06/20 05:03 Metolazone (Zaroxolyn) 5 mg QMWF PO 06/25/20 16:00 07/04/20 17:39 Phenytoin Sodium (Dilantin) 50 mg DAILY PO 06/24/20 09:00 06/27/20 19:43 DC 06/27/20 08:39 Phenytoin Sodium (Dilantin) 100 mg BID PO 06/24/20 09:00 06/27/20 19:43 DC 06/27/20 08:39 Potassium Chloride (Klor-Con) 20 meq BID PO 06/24/20 09:00 07/05/20 19:46 Sennosides (Senna) 8.6 mg BID PO 06/24/20 09:00 07/05/20 19:47 Sertraline HCl (Zoloft) 25 mg DAILY PO 06/24/20 09:00 06/25/20 18:31 DC 06/25/20 09:11 Calcium/Vitamin D (Oscal D 500mg/ 200uts) 1 tab DAILY PO 06/24/20 09:00 07/05/20 08:33 Multivitamins/ Calcium (Thera-M Plus) 1 tab DAILY PO 06/24/20 09:00 07/05/20 08:33 Fish Oil (Fish Oil) 1,000 mg DAILY PO 06/24/20 09:00 07/05/20 08:33 Polyethylene Glycol (miraLAX) 17 gm DAILY PO 06/24/20 09:00 07/05/20 08:32 Vitamin D (Vitamin D3) 50,000 unit WEEKLY PO 06/24/20 09:00 07/01/20 07:50 Melatonin (Melatonin) 6 mg PRN QHS PRN PO INSOMNIA 06/24/20 00:30 07/02/20 01:13 Sertraline HCl (Zoloft) 50 mg DAILY PO 06/26/20 09:00 06/28/20 11:00 DC 06/28/20 09:34 Sertraline HCl (Zoloft) 75 mg DAILY PO 06/29/20 09:00 07/05/20 08:33 Phenytoin Sodium (Dilantin) 300 mg QHS PO 06/28/20 21:00 07/05/20 19:47 Mirtazapine (Remeron) 7.5 mg QHS PO 07/05/20 21:00 07/05/20 19:47 Current Medications Medications (Trade) Dose Ordered Sig/Kassidy Route PRN Reason Start Time Stop Time Status Last Admin Dose Admin Mirtazapine (Remeron) 7.5 mg QHS PO 07/05/20 21:00 07/05/20 19:47 I have reviewed the current psychotropics carefully including drug interactions. Risk benefit ratio favors no change other than as noted in my dictated progress note. Diagnosis: Problems: (1) Impulse control disorder, unspecified (2) Anxiety disorder, unspecified (3) Dementia, vascular, with depression (4) Dementia, vascular, with delusions (5) MDD (major depressive disorder) (6) Dementia in Alzheimer's disease with depression (7) Dementia in Alzheimer's disease with delusions (8) Major neurocognitive disorder, due to vascular disease, with behavioral disturbance, mild GAMALILE MALLOY MD Jul 06, 2020 09:15
[2020-07-06] MEDS: BUMETANIDE 1 MG TABLET PO SCH (09:26)
[2020-07-06] MEDS: ASPIRIN CHEWABLE 81 MG TABLET. PO SCH (09:26)
[2020-07-06] MEDS: FUROSEMIDE 40 MG TABLET PO SCH ×2 (09:26→12:56)
[2020-07-06] MEDS: OMEGA-3 FATTY ACIDS/FISH OIL 1,000 MG CAPSULE. PO SCH (09:26)
[2020-07-06] MEDS: DOCUSATE SODIUM 100 MG CAPSULE PO SCH (09:26)
[2020-07-06] MEDS: POTASSIUM CHLORIDE 20 MEQ TABLET.ER. PO SCH ×2 (09:26→19:45)
[2020-07-06] MEDS: ACETAMINOPHEN 500 MG TABLET PO SCH ×2 (09:27→19:46)
[2020-07-06] MEDS: CETIRIZINE HCL 10 MG TABLET PO SCH (09:27)
[2020-07-06] MEDS: CALCIUM CARB/VIT D3 500/200 TABLET PO SCH (09:27)
[2020-07-06] MEDS: SERTRALINE 25 MG TABLET. PO SCH (09:27)
[2020-07-06] MEDS: SENNOSIDES 8.6 MG TABLET PO SCH ×2 (09:27→19:46)
[2020-07-06] MEDS: MULTIVITAMIN with MINERAL TABLET. PO SCH (09:27)
[2020-07-06] MEDS: POLYETHYLENE GLYCOL 3350 17 GM PACKET. PO SCH (09:27)
--- NOTE | 2020-07-06 11:54 | NUR ---
Pt attempted to refuse her am medication. Staff encouraged pt multiple times to take her medication which pt did. She is compliant with her assessment. No hallucinations or delusions noted. Pt was not aggressive with staff.
[2020-07-06 11:59] LABS: BASO # 0.1 x10^3/uL (0.0-0.2); BASO % 1 % (0-3); EOS # 0.1 x10^3/uL (0.0-0.7); EOS % 2 % (0-3); HEMOGLOBIN 13.5 g/dL (12.0-15.5); LYMPH # 1.5 x10^3/uL (1.0-4.8); LYMPH % 33 % (24-48); MEAN CORPUSCULAR HEMOGLOBIN 33 pg (25-35); MEAN CORPUSCULAR HGB CONC 34 g/dL (31-37); MEAN CORPUSCULAR VOLUME 98 fL (79-100); MONO # 0.3 x10^3/uL (0.0-1.1); MONO % 8 % (0-9); NEUT # 2.5 x10^3uL (1.8-7.7); NEUT % 57 % (31-73); PLATELET COUNT 270 x10^3/uL (140-400); RED CELL DISTRIBUTION WIDTH 12.9 % (11.5-14.5); WHITE BLOOD COUNT 4.5 x10^3/uL (4.0-11.0)
[2020-07-06 12:15] LABS: ALBUMIN 3.5 g/dL (3.4-5.0); ALBUMIN/GLOBULIN RATIO 0.8 (1.0-1.7); CALCIUM 9.9 mg/dL (8.5-10.1); CREATININE 0.7 mg/dL (0.6-1.0); POTASSIUM 3.6 mmol/L (3.5-5.1); TOTAL BILIRUBIN 0.2 mg/dL (0.2-1.0); TOTAL PROTEIN 7.8 g/dL (6.4-8.2)
[2020-07-06 15:05] VITALS: BP 130/81
[2020-07-06] MEDS: PHENYTOIN SODIUM EXTENDED 100 MG CAPSULE PO SCH (19:45)
[2020-07-06] MEDS: MIRTAZAPINE 7.5 MG TABLET. PO SCH (19:46)
[2020-07-06] MEDS: AMOXICILLIN 250 MG CAPSULE PO SCH (19:47)
--- NOTE | 2020-07-06 21:17 | PDOC ---
Exam Note: Brooks Note: Please also refer to the separate dictated note~for this date of service dictated separately.~Patient seen individually. Discussed the patient with Nursing staff reviewed the chart.~Reviewed interim history and current functioning. Reviewed vital signs,~Labs/ Radiology~and current medications noted below. Continue current treatment with the changes noted in the dictated addendum note Assessment: Vital Signs/I&O: Vital Signs Date Time Temp Pulse Resp B/P (MAP) Pulse Ox O2 Delivery O2 Flow Rate FiO2 07/06/20 15:05 97.5 80 18 130/81 (97) 97 07/05/20 15:00 Room Air I & O 07/05/20 07/05/20 07/06/20 14:59 22:59 06:59 Intake Total 460 ml 480 ml Balance 460 ml 480 ml Labs: Laboratory Tests Test 07/06/20 11:50 White Blood Count 4.5 x10^3/uL (4.0-11.0) Red Blood Count 4.10 x10^6/uL (3.50-5.40) Hemoglobin 13.5 g/dL (12.0-15.5) Hematocrit 40.0 % (36.0-47.0) Mean Corpuscular Volume 98 fL (79-100) Mean Corpuscular Hemoglobin 33 pg (25-35) Mean Corpuscular Hemoglobin Concent 34 g/dL (31-37) Red Cell Distribution Width 12.9 % (11.5-14.5) Platelet Count 270 x10^3/uL (140-400) Neutrophils (%) (Auto) 57 % (31-73) Lymphocytes (%) (Auto) 33 % (24-48) Monocytes (%) (Auto) 8 % (0-9) Eosinophils (%) (Auto) 2 % (0-3) Basophils (%) (Auto) 1 % (0-3) Neutrophils # (Auto) 2.5 x10^3uL (1.8-7.7) Lymphocytes # (Auto) 1.5 x10^3/uL (1.0-4.8) Monocytes # (Auto) 0.3 x10^3/uL (0.0-1.1) Eosinophils # (Auto) 0.1 x10^3/uL (0.0-0.7) Basophils # (Auto) 0.1 x10^3/uL (0.0-0.2) Sodium Level 137 mmol/L (136-145) Potassium Level 3.6 mmol/L (3.5-5.1) Chloride Level 97 mmol/L (98-107) L Carbon Dioxide Level 33 mmol/L (21-32) H Anion Gap 7 (6-14) Blood Urea Nitrogen 31 mg/dL (7-20) H Creatinine 0.7 mg/dL (0.6-1.0) Estimated GFR (Cockcroft-Gault) 83.0 BUN/Creatinine Ratio 44 (6-20) H Glucose Level 112 mg/dL (70-99) H Calcium Level 9.9 mg/dL (8.5-10.1) Total Bilirubin 0.2 mg/dL (0.2-1.0) Aspartate Amino Transferase (AST) 18 U/L (15-37) Alanine Aminotransferase (ALT) 28 U/L (14-59) Alkaline Phosphatase 82 U/L (46-116) Total Protein 7.8 g/dL (6.4-8.2) Albumin 3.5 g/dL (3.4-5.0) Albumin/Globulin Ratio 0.8 (1.0-1.7) L Current Medications: Meds: Current Medications Medications (Trade) Dose Ordered Sig/Kassidy Route PRN Reason Start Time Stop Time Status Last Admin Dose Admin Amoxicillin (Amoxil) 250 mg [id number] PO 07/06/20 21:00 07/13/20 20:59 07/06/20 19:47 I have reviewed the current psychotropics carefully including drug interactions. Risk benefit ratio favors no change other than as noted in my dictated progress note. Diagnosis: Problems: (1) Impulse control disorder, unspecified (2) Anxiety disorder, unspecified (3) Dementia, vascular, with depression (4) Dementia, vascular, with delusions (5) MDD (major depressive disorder) (6) Dementia in Alzheimer's disease with depression (7) Dementia in Alzheimer's disease with delusions (8) Major neurocognitive disorder, due to vascular disease, with behavioral disturbance, mild GAMALIEL MALLOY MD Jul 06, 2020 21:17
--- NOTE | 2020-07-07 00:26 | NUR ---
Patient somewhat resistive with her HS medications. Potassium was dissolved and given in beverage. Eventually she was compliant with medications. Patient was noted to be in the wheelchair in the hallway and then later in her room. She has expressive aphasia with garbled speech and it is unknown what her current orientation is. Patient does answer to her name.
[2020-07-07] MEDS: LEVOTHYROXINE 50 MCG TABLET PO SCH (05:19)
[2020-07-07 05:59] VITALS: BP 111/64
[2020-07-07] MEDS: POLYETHYLENE GLYCOL 3350 17 GM PACKET. PO SCH (09:00)
[2020-07-07] MEDS: POTASSIUM CHLORIDE 20 MEQ TABLET.ER. PO SCH ×2 (09:55→19:35)
[2020-07-07] MEDS: ASPIRIN CHEWABLE 81 MG TABLET. PO SCH (09:55)
[2020-07-07] MEDS: OMEGA-3 FATTY ACIDS/FISH OIL 1,000 MG CAPSULE. PO SCH (09:55)
[2020-07-07] MEDS: AMOXICILLIN 250 MG CAPSULE PO SCH ×3 (09:55→19:34)
[2020-07-07] MEDS: ACETAMINOPHEN 500 MG TABLET PO SCH ×2 (09:56→19:35)
[2020-07-07] MEDS: SENNOSIDES 8.6 MG TABLET PO SCH ×2 (09:56→19:34)
[2020-07-07] MEDS: FUROSEMIDE 40 MG TABLET PO SCH ×2 (09:56→14:55)
[2020-07-07] MEDS: MULTIVITAMIN with MINERAL TABLET. PO SCH (09:56)
[2020-07-07] MEDS: SERTRALINE 25 MG TABLET. PO SCH (09:56)
[2020-07-07] MEDS: CALCIUM CARB/VIT D3 500/200 TABLET PO SCH (09:56)
[2020-07-07] MEDS: CETIRIZINE HCL 10 MG TABLET PO SCH (09:57)
[2020-07-07] MEDS: BUMETANIDE 1 MG TABLET PO SCH (09:57)
--- NOTE | 2020-07-07 11:04 | NUR ---
Pt is calm, cooperative, and compliant. She is compliant with her assessment. No hallucinations or delusions noted.
[2020-07-07] MEDS: metOLazone 5 MG TABLET PO SCH (14:55)
--- NOTE | 2020-07-07 16:03 | NUR ---
FIORDALIZA spoke with Fariba pt sister/guardian regarding possibly having an Echo completed on day of d/c at [facility]. Fariba explained that she was trying to avoid pt from having to go through quarantine twice at her facility. FIORDALIZA then spoke with Inna MALCOLM) at [facility] to discuss details of d/c and transportation to [facility] for Echo. Inna explained that appointment will need to be requested through [facility] or [facility] [employer] [facility] and they could try to set that up. Inna, further, explained that if there were any Covid patients at [facility] day the Echo was scheduled, then pt would not be able to attend that appt.
[2020-07-07 16:36] VITALS: BP 133/74
[2020-07-07] MEDS: PHENYTOIN SODIUM EXTENDED 100 MG CAPSULE PO SCH (19:35)
[2020-07-07] MEDS: MELATONIN 3 MG TABLET PO PRN (19:35)
[2020-07-07] MEDS: MIRTAZAPINE 7.5 MG TABLET. PO SCH (19:35)
--- NOTE | 2020-07-07 20:52 | PDOC ---
Exam Note: Brooks Note: Please also refer to the separate dictated note~for this date of service dictated separately.~Patient seen individually. Discussed the patient with Nursing staff reviewed the chart.~Reviewed interim history and current functioning. Reviewed vital signs,~Labs/ Radiology~and current medications noted below. Continue current treatment with the changes noted in the dictated addendum note Assessment: Vital Signs/I&O: Vital Signs Date Time Temp Pulse Resp B/P (MAP) Pulse Ox O2 Delivery O2 Flow Rate FiO2 07/07/20 16:36 98.2 74 20 133/74 (93) 100 07/07/20 05:59 Room Air I & O 07/06/20 07/06/20 07/07/20 15:00 23:00 07:00 Intake Total 360 ml 440 ml Balance 360 ml 440 ml Current Medications: Meds: Current Medications Medications (Trade) Dose Ordered Sig/Kassidy Route PRN Reason Start Time Stop Time Status Last Admin Dose Admin Amoxicillin (Amoxil) 250 mg [id number] PO 07/06/20 21:00 07/13/20 20:59 07/07/20 19:34 I have reviewed the current psychotropics carefully including drug interactions. Risk benefit ratio favors no change other than as noted in my dictated progress note. Diagnosis: Problems: (1) Impulse control disorder, unspecified (2) Anxiety disorder, unspecified (3) Dementia, vascular, with depression (4) Dementia, vascular, with delusions (5) MDD (major depressive disorder) (6) Dementia in Alzheimer's disease with depression (7) Dementia in Alzheimer's disease with delusions (8) Major neurocognitive disorder, due to vascular disease, with behavioral disturbance, mild GAMALIEL MALLOY MD Jul 07, 2020 20:52
--- NOTE | 2020-07-08 01:57 | NUR ---
Location of Patient during Assessment: Patient room Behaviors Mood and Affect this shift: cooperative Medication Compliant: Meds taken whole with qian Assessment Compliant: cooperative with staff Response After Interventions: has been sleeping well
[2020-07-08] MEDS: LEVOTHYROXINE 50 MCG TABLET PO SCH (05:24)
[2020-07-08 05:44] VITALS: BP 118/62
--- NOTE | 2020-07-08 08:04 | PDOC ---
Exam Note: Brooks Note: This note is a late entry for 07/06/2020 covers elements not covered in my initial note. Subjective: The patient was reviewed on telehealth rounds in the evening of 07/06/2020 with Amina NEWMAN. Discussed with nursing staff, reviewed the chart. The patient slept 8-1/4 hours previous night. She does have UTI and was started on Amoxil for this. Many of her verbal responses are non-verbal, grunting noises, refused her a.m. medications. Review of Systems: Ambulation impaired in wheelchair. No CV, , pulmonary, eye, ENT system symptoms on review. Mental Status Exam: The patient is oriented to herself. Insight and judgment, recent and remote memory, attention and concentration, fund of knowledge is poor consistent with her diagnosis mentioned. Laboratory Data: Reviewed. Impression: Major depressive disorder severe. Anxiety disorder unspecified. Major neurocognitive disorder Alzheimer vascular with delusion, depression, behavioral disturbance. Impulse control disorder. Plan: No change from initial note. Continue Amoxil for UTI. Assessment: Vital Signs/I&O: Vital Signs Date Time Temp Pulse Resp B/P (MAP) Pulse Ox O2 Delivery O2 Flow Rate FiO2 07/08/20 05:44 97.4 66 18 118/62 (80) 96 07/07/20 05:59 Room Air I & O 07/07/20 07/07/20 07/08/20 15:00 23:00 07:00 Intake Total 240 ml 240 ml Balance 240 ml 240 ml Current Medications: Meds: Current Medications Medications (Trade) Dose Ordered Sig/Kassidy Route PRN Reason Start Time Stop Time Status Last Admin Dose Admin Acetaminophen (Tylenol) 650 mg PRN Q6HRS PRN PO MILD PAIN / TEMP > 100.3'F 06/24/20 00:30 06/30/20 03:41 Multi-Ingredient Ointment (Analgesic [place]) 1 belinda PRN QID PRN TP MUSCLE PAIN 06/24/20 00:30 06/27/20 00:49 Al Hydroxide/Mg Hydroxide (Mylanta Plus Xs) 15 ml PRN AFTMEALHC PRN PO DYSPEPSIA 06/24/20 00:30 Magnesium Hydroxide (Milk Of Magnesia) 2,400 mg PRN QHS PRN PO CONSTIPATION 06/24/20 00:30 Acetaminophen (Tylenol) 650 mg Q4HRS PRN PO pain or fever 06/24/20 00:30 UNV Acetaminophen (Tylenol) 500 mg BID PO 06/24/20 09:00 07/07/20 19:35 Aspirin (Aspirin Chewable) 81 mg DAILY PO 06/24/20 09:00 07/07/20 09:55 Bumetanide (Bumex) 1 mg DAILY PO 06/24/20 09:00 07/07/20 09:57 Cetirizine HCl (ZyrTEC) 5 mg DAILY PO 06/24/20 09:00 07/07/20 09:57 Docusate Sodium (Colace) 100 mg QODAY PO 06/24/20 09:00 07/06/20 09:26 Furosemide (Lasix) 40 mg BID92 PO 06/24/20 09:00 07/07/20 14:55 Levothyroxine Sodium (Synthroid) 50 mcg DAILY06 PO 06/24/20 06:00 07/08/20 05:24 Metolazone (Zaroxolyn) 5 mg QMWF PO 06/25/20 16:00 07/07/20 14:55 Phenytoin Sodium (Dilantin) 50 mg DAILY PO 06/24/20 09:00 06/27/20 19:43 DC 06/27/20 08:39 Phenytoin Sodium (Dilantin) 100 mg BID PO 06/24/20 09:00 06/27/20 19:43 DC 06/27/20 08:39 Potassium Chloride (Klor-Con) 20 meq BID PO 06/24/20 09:00 07/07/20 19:35 Sennosides (Senna) 8.6 mg BID PO 06/24/20 09:00 07/07/20 19:34 Sertraline HCl (Zoloft) 25 mg DAILY PO 06/24/20 09:00 06/25/20 18:31 DC 06/25/20 09:11 Calcium/Vitamin D (Oscal D 500mg/ 200uts) 1 tab DAILY PO 06/24/20 09:00 07/07/20 09:56 Multivitamins/ Calcium (Thera-M Plus) 1 tab DAILY PO 06/24/20 09:00 07/07/20 09:56 Fish Oil (Fish Oil) 1,000 mg DAILY PO 06/24/20 09:00 07/07/20 09:55 Polyethylene Glycol (miraLAX) 17 gm DAILY PO 06/24/20 09:00 07/06/20 09:27 Vitamin D (Vitamin D3) 50,000 unit WEEKLY PO 06/24/20 09:00 07/01/20 07:50 Melatonin (Melatonin) 6 mg PRN QHS PRN PO INSOMNIA 06/24/20 00:30 07/07/20 19:35 Sertraline HCl (Zoloft) 50 mg DAILY PO 06/26/20 09:00 06/28/20 11:00 DC 06/28/20 09:34 Sertraline HCl (Zoloft) 75 mg DAILY PO 06/29/20 09:00 07/07/20 09:56 Phenytoin Sodium (Dilantin) 300 mg QHS PO 06/28/20 21:00 07/07/20 19:35 Mirtazapine (Remeron) 7.5 mg QHS PO 07/05/20 21:00 07/07/20 19:35 Amoxicillin (Amoxil) 250 mg [id number] PO 07/06/20 21:00 07/13/20 20:59 07/07/20 19:34 I have reviewed the current psychotropics carefully including drug interactions. Risk benefit ratio favors no change other than as noted in my dictated progress note. Diagnosis: Problems: (1) UTI (urinary tract infection) (2) Impulse control disorder, unspecified (3) Anxiety disorder, unspecified (4) Dementia, vascular, with depression (5) Dementia, vascular, with delusions (6) MDD (major depressive disorder) (7) Dementia in Alzheimer's disease with depression (8) Dementia in Alzheimer's disease with delusions (9) Major neurocognitive disorder, due to vascular disease, with behavioral disturbance, mild GAMALIEL MALLOY MD Jul 08, 2020 08:04
--- NOTE | 2020-07-08 08:34 | PDOC ---
Exam Note: Brooks Note: This note is a late entry for 07/07/2020 covers elements not covered in my initial note. Subjective: The patient was reviewed on telehealth rounds in the evening of 07/07/2020 with Rachael NEWMAN. Discussed with nursing staff, reviewed the chart. The patient slept 7-3/4 hours previous night. The patient remains on Amoxil for her UTI. She is somewhat less irritable. She did well previous night and during the day. Review of Systems: Ambulation impaired in wheelchair. No CV, , pulmonary, eye, ENT system symptoms on review. Mental Status Exam: The patient is oriented to herself. Many of her verbal responses are non-verbal, grunting noises during responses. Insight and judgment, recent and remote memory, attention and concentration, fund of knowledge is poor consistent with her diagnosis mentioned. Laboratory Data: Reviewed. Impression: Major depressive disorder severe. Anxiety disorder unspecified. Major neurocognitive disorder Alzheimer vascular with delusion, depression, behavioral disturbance. Impulse control disorder. Plan: No change from initial note. Assessment: Vital Signs/I&O: Vital Signs Date Time Temp Pulse Resp B/P (MAP) Pulse Ox O2 Delivery O2 Flow Rate FiO2 07/08/20 05:44 97.4 66 18 118/62 (80) 96 07/07/20 05:59 Room Air I & O 07/07/20 07/07/20 07/08/20 15:00 23:00 07:00 Intake Total 240 ml 240 ml Balance 240 ml 240 ml Current Medications: Meds: Current Medications Medications (Trade) Dose Ordered Sig/Kassidy Route PRN Reason Start Time Stop Time Status Last Admin Dose Admin Acetaminophen (Tylenol) 650 mg PRN Q6HRS PRN PO MILD PAIN / TEMP > 100.3'F 06/24/20 00:30 06/30/20 03:41 Multi-Ingredient Ointment (Analgesic [place]) 1 belinda PRN QID PRN TP MUSCLE PAIN 06/24/20 00:30 06/27/20 00:49 Al Hydroxide/Mg Hydroxide (Mylanta Plus Xs) 15 ml PRN AFTMEALHC PRN PO DYSPEPSIA 06/24/20 00:30 Magnesium Hydroxide (Milk Of Magnesia) 2,400 mg PRN QHS PRN PO CONSTIPATION 06/24/20 00:30 Acetaminophen (Tylenol) 650 mg Q4HRS PRN PO pain or fever 06/24/20 00:30 UNV Acetaminophen (Tylenol) 500 mg BID PO 06/24/20 09:00 07/07/20 19:35 Aspirin (Aspirin Chewable) 81 mg DAILY PO 06/24/20 09:00 07/07/20 09:55 Bumetanide (Bumex) 1 mg DAILY PO 06/24/20 09:00 07/07/20 09:57 Cetirizine HCl (ZyrTEC) 5 mg DAILY PO 06/24/20 09:00 07/07/20 09:57 Docusate Sodium (Colace) 100 mg QODAY PO 06/24/20 09:00 07/06/20 09:26 Furosemide (Lasix) 40 mg BID92 PO 06/24/20 09:00 07/07/20 14:55 Levothyroxine Sodium (Synthroid) 50 mcg DAILY06 PO 06/24/20 06:00 07/08/20 05:24 Metolazone (Zaroxolyn) 5 mg QMWF PO 06/25/20 16:00 07/07/20 14:55 Phenytoin Sodium (Dilantin) 50 mg DAILY PO 06/24/20 09:00 06/27/20 19:43 DC 06/27/20 08:39 Phenytoin Sodium (Dilantin) 100 mg BID PO 06/24/20 09:00 06/27/20 19:43 DC 06/27/20 08:39 Potassium Chloride (Klor-Con) 20 meq BID PO 06/24/20 09:00 07/07/20 19:35 Sennosides (Senna) 8.6 mg BID PO 06/24/20 09:00 07/07/20 19:34 Sertraline HCl (Zoloft) 25 mg DAILY PO 06/24/20 09:00 06/25/20 18:31 DC 06/25/20 09:11 Calcium/Vitamin D (Oscal D 500mg/ 200uts) 1 tab DAILY PO 06/24/20 09:00 07/07/20 09:56 Multivitamins/ Calcium (Thera-M Plus) 1 tab DAILY PO 06/24/20 09:00 07/07/20 09:56 Fish Oil (Fish Oil) 1,000 mg DAILY PO 06/24/20 09:00 1/4/21 09:55 Polyethylene Glycol (miraLAX) 17 gm DAILY PO 06/24/20 09:00 07/06/20 09:27 Vitamin D (Vitamin D3) 50,000 unit WEEKLY PO 06/24/20 09:00 07/01/20 07:50 Melatonin (Melatonin) 6 mg PRN QHS PRN PO INSOMNIA 06/24/20 00:30 07/07/20 19:35 Sertraline HCl (Zoloft) 50 mg DAILY PO 06/26/20 09:00 06/28/20 11:00 DC 06/28/20 09:34 Sertraline HCl (Zoloft) 75 mg DAILY PO 06/29/20 09:00 07/07/20 09:56 Phenytoin Sodium (Dilantin) 300 mg QHS PO 06/28/20 21:00 07/07/20 19:35 Mirtazapine (Remeron) 7.5 mg QHS PO 07/05/20 21:00 07/07/20 19:35 Amoxicillin (Amoxil) 250 mg [id number] PO 07/06/20 21:00 07/13/20 20:59 07/07/20 19:34 I have reviewed the current psychotropics carefully including drug interactions. Risk benefit ratio favors no change other than as noted in my dictated progress note. Diagnosis: Problems: (1) Impulse control disorder, unspecified (2) Anxiety disorder, unspecified (3) Dementia, vascular, with depression (4) Dementia, vascular, with delusions (5) MDD (major depressive disorder) (6) Dementia in Alzheimer's disease with depression (7) Dementia in Alzheimer's disease with delusions (8) Major neurocognitive disorder, due to vascular disease, with behavioral disturbance, mild (9) UTI (urinary tract infection) GAMALIEL MALLOY MD Jul 08, 2020 08:34
[2020-07-08] MEDS: AMOXICILLIN 250 MG CAPSULE PO SCH ×3 (09:23→20:06)
[2020-07-08] MEDS: FUROSEMIDE 40 MG TABLET PO SCH ×2 (09:23→14:38)
[2020-07-08] MEDS: OMEGA-3 FATTY ACIDS/FISH OIL 1,000 MG CAPSULE. PO SCH (09:23)
[2020-07-08] MEDS: ASPIRIN CHEWABLE 81 MG TABLET. PO SCH (09:23)
[2020-07-08] MEDS: SERTRALINE 25 MG TABLET. PO SCH (09:23)
[2020-07-08] MEDS: CALCIUM CARB/VIT D3 500/200 TABLET PO SCH (09:23)
[2020-07-08] MEDS: CETIRIZINE HCL 10 MG TABLET PO SCH (09:23)
[2020-07-08] MEDS: POTASSIUM CHLORIDE 20 MEQ TABLET.ER. PO SCH ×2 (09:24→20:06)
[2020-07-08] MEDS: SENNOSIDES 8.6 MG TABLET PO SCH ×2 (09:24→20:06)
[2020-07-08] MEDS: POLYETHYLENE GLYCOL 3350 17 GM PACKET. PO SCH (09:24)
[2020-07-08] MEDS: CHOLECALCIFEROL (VITAMIN D3) 50,000 UNIT CAPSULE PO SCH (09:24)
[2020-07-08] MEDS: MULTIVITAMIN with MINERAL TABLET. PO SCH (09:24)
[2020-07-08] MEDS: DOCUSATE SODIUM 100 MG CAPSULE PO SCH (09:24)
[2020-07-08] MEDS: BUMETANIDE 1 MG TABLET PO SCH (09:25)
[2020-07-08] MEDS: ACETAMINOPHEN 500 MG TABLET PO SCH ×2 (09:25→20:06)
--- NOTE | 2020-07-08 15:42 | NUR ---
FIORDALIZA spoke with Monica KENT from [facility]. They have scheduled for Cate to have an Echo at [facility] on 07/11/20. They would like to pick her up between 1130 and 1200 so that they can have her to that appointment in time.
[2020-07-08 16:19] VITALS: BP 138/83
--- NOTE | 2020-07-08 19:33 | NUR ---
Patient calm, compliant, and cooperative throughout this shift. She was cooperative with morning medications then resistive initially with afternoon medications. She spent most of the shift wandering in the hallway and did not participate in groups. Will continue to monitor and report to oncoming shift.
[2020-07-08] MEDS: PHENYTOIN SODIUM EXTENDED 100 MG CAPSULE PO SCH (20:06)
[2020-07-08] MEDS: MIRTAZAPINE 7.5 MG TABLET. PO SCH (20:06)
--- NOTE | 2020-07-08 20:49 | PDOC ---
Exam Note: Brooks Note: Please also refer to the separate dictated note~for this date of service dictated separately.~Patient seen individually. Discussed the patient with Nursing staff reviewed the chart.~Reviewed interim history and current functioning. Reviewed vital signs,~Labs/ Radiology~and current medications noted below. Continue current treatment with the changes noted in the dictated addendum note Assessment: Vital Signs/I&O: Vital Signs Date Time Temp Pulse Resp B/P (MAP) Pulse Ox O2 Delivery O2 Flow Rate FiO2 07/08/20 16:19 97.5 77 18 138/83 (101) 95 07/07/20 05:59 Room Air I & O 07/07/20 07/07/20 07/08/20 15:00 23:00 07:00 Intake Total 240 ml 240 ml Balance 240 ml 240 ml Current Medications: Meds: Current Medications Medications (Trade) Dose Ordered Sig/Kassidy Route PRN Reason Start Time Stop Time Status Last Admin Dose Admin Acetaminophen (Tylenol) 650 mg PRN Q6HRS PRN PO MILD PAIN / TEMP > 100.3'F 06/24/20 00:30 06/30/20 03:41 Multi-Ingredient Ointment (Analgesic [place]) 1 belinda PRN QID PRN TP MUSCLE PAIN 06/24/20 00:30 06/27/20 00:49 Al Hydroxide/Mg Hydroxide (Mylanta Plus Xs) 15 ml PRN AFTMEALHC PRN PO DYSPEPSIA 06/24/20 00:30 Magnesium Hydroxide (Milk Of Magnesia) 2,400 mg PRN QHS PRN PO CONSTIPATION 06/24/20 00:30 Acetaminophen (Tylenol) 650 mg Q4HRS PRN PO pain or fever 06/24/20 00:30 UNV Acetaminophen (Tylenol) 500 mg BID PO 06/24/20 09:00 07/08/20 20:06 Aspirin (Aspirin Chewable) 81 mg DAILY PO 06/24/20 09:00 07/08/20 09:23 Bumetanide (Bumex) 1 mg DAILY PO 06/24/20 09:00 07/08/20 09:25 Cetirizine HCl (ZyrTEC) 5 mg DAILY PO 06/24/20 09:00 07/08/20 09:23 Docusate Sodium (Colace) 100 mg QODAY PO 06/24/20 09:00 07/08/20 09:24 Furosemide (Lasix) 40 mg BID92 PO 06/24/20 09:00 07/08/20 14:38 Levothyroxine Sodium (Synthroid) 50 mcg DAILY06 PO 06/24/20 06:00 07/08/20 05:24 Metolazone (Zaroxolyn) 5 mg QMWF PO 06/25/20 16:00 07/07/20 14:55 Phenytoin Sodium (Dilantin) 50 mg DAILY PO 06/24/20 09:00 06/27/20 19:43 DC 06/27/20 08:39 Phenytoin Sodium (Dilantin) 100 mg BID PO 06/24/20 09:00 06/27/20 19:43 DC 06/27/20 08:39 Potassium Chloride (Klor-Con) 20 meq BID PO 06/24/20 09:00 07/08/20 20:06 Sennosides (Senna) 8.6 mg BID PO 06/24/20 09:00 07/08/20 20:06 Sertraline HCl (Zoloft) 25 mg DAILY PO 06/24/20 09:00 06/25/20 18:31 DC 06/25/20 09:11 Calcium/Vitamin D (Oscal D 500mg/ 200uts) 1 tab DAILY PO 06/24/20 09:00 07/08/20 09:23 Multivitamins/ Calcium (Thera-M Plus) 1 tab DAILY PO 06/24/20 09:00 07/08/20 09:24 Fish Oil (Fish Oil) 1,000 mg DAILY PO 06/24/20 09:00 07/08/20 09:23 Polyethylene Glycol (miraLAX) 17 gm DAILY PO 06/24/20 09:00 07/08/20 09:24 Vitamin D (Vitamin D3) 50,000 unit WEEKLY PO 06/24/20 09:00 07/08/20 09:24 Melatonin (Melatonin) 6 mg PRN QHS PRN PO INSOMNIA 06/24/20 00:30 07/07/20 19:35 Sertraline HCl (Zoloft) 50 mg DAILY PO 06/26/20 09:00 06/28/20 11:00 DC 06/28/20 09:34 Sertraline HCl (Zoloft) 75 mg DAILY PO 06/29/20 09:00 07/08/20 09:23 Phenytoin Sodium (Dilantin) 300 mg QHS PO 06/28/20 21:00 07/08/20 20:06 Mirtazapine (Remeron) 7.5 mg QHS PO 07/05/20 21:00 07/08/20 20:06 Amoxicillin (Amoxil) 250 mg [id number] PO 07/06/20 21:00 07/13/20 20:59 07/08/20 20:06 I have reviewed the current psychotropics carefully including drug interactions. Risk benefit ratio favors no change other than as noted in my dictated progress note. Diagnosis: Problems: (1) Impulse control disorder, unspecified (2) Anxiety disorder, unspecified (3) Dementia, vascular, with depression (4) Dementia, vascular, with delusions (5) MDD (major depressive disorder) (6) Dementia in Alzheimer's disease with depression (7) Dementia in Alzheimer's disease with delusions (8) Major neurocognitive disorder, due to vascular disease, with behavioral disturbance, mild GAMALIEL MALLOY MD Jul 08, 2020 20:49
--- NOTE | 2020-07-08 22:28 | NUR ---
Patient is cooperative tonight and took the medications the first time they were offered. Cooperative with assessment. Patient is mostly non-verbal but can sometimes get her point across by nodding yes or no to questions. Patient cooperative with HS cares and is sleeping in bed with no s/s pain noted.
[2020-07-09] MEDS: LEVOTHYROXINE 50 MCG TABLET PO SCH (05:02)
[2020-07-09 05:38] VITALS: BP 132/66
--- NOTE | 2020-07-09 06:41 | NUR ---
Patient swabbed for COVID-19: discharge scheduled for 07/10/20.
[2020-07-09] MEDS: BUMETANIDE 1 MG TABLET PO SCH (09:00)
[2020-07-09] MEDS: OMEGA-3 FATTY ACIDS/FISH OIL 1,000 MG CAPSULE. PO SCH (09:00)
[2020-07-09] MEDS: ACETAMINOPHEN 500 MG TABLET PO SCH ×2 (09:44→20:20)
[2020-07-09] MEDS: ASPIRIN CHEWABLE 81 MG TABLET. PO SCH (09:44)
[2020-07-09] MEDS: SERTRALINE 25 MG TABLET. PO SCH (09:44)
[2020-07-09] MEDS: POLYETHYLENE GLYCOL 3350 17 GM PACKET. PO SCH (09:44)
[2020-07-09] MEDS: POTASSIUM CHLORIDE 20 MEQ TABLET.ER. PO SCH ×2 (09:45→20:21)
[2020-07-09] MEDS: SENNOSIDES 8.6 MG TABLET PO SCH ×2 (09:45→20:20)
[2020-07-09] MEDS: CALCIUM CARB/VIT D3 500/200 TABLET PO SCH (09:45)
[2020-07-09] MEDS: FUROSEMIDE 40 MG TABLET PO SCH ×2 (09:45→15:30)
[2020-07-09] MEDS: MULTIVITAMIN with MINERAL TABLET. PO SCH (09:45)
[2020-07-09] MEDS: CETIRIZINE HCL 10 MG TABLET PO SCH (09:46)
[2020-07-09] MEDS: AMOXICILLIN 250 MG CAPSULE PO SCH ×3 (09:46→20:20)
[2020-07-09 15:22] VITALS: BP 135/77
--- NOTE | 2020-07-09 15:43 | NUR ---
FIORDALIZA spoke with Fariba, pt sister/guardian to provide update and d/c plan. FIORDALIZA explained that [facility] was able to schedule an appt for Echo at [facility] on Tuesday/day of d/c. Fariba appreciative of information. SW agreed to contact if any plans were to change.
--- NOTE | 2020-07-09 16:55 | NUR ---
Patient is irritable and agitated today. She is cooperative but on edge. She takes her medications whole with no problems. Patient had high pulse and low O2. When placing pulse ox onto ear lobe patient O2 went to 100% and pulse down to 62. If can use ear lobe to get accurate or better readings for vitals. No further concerns or complaints today.
[2020-07-09] MEDS: metOLazone 5 MG TABLET PO SCH (17:32)
[2020-07-09] MEDS: MIRTAZAPINE 7.5 MG TABLET. PO SCH (20:20)
[2020-07-09] MEDS: PHENYTOIN SODIUM EXTENDED 100 MG CAPSULE PO SCH (20:20)
--- NOTE | 2020-07-09 21:43 | PDOC ---
Exam Note: Brooks Note: Please also refer to the separate dictated note~for this date of service dictated separately.~Patient seen individually. Discussed the patient with Nursing staff reviewed the chart.~Reviewed interim history and current functioning. Reviewed vital signs,~Labs/ Radiology~and current medications noted below. Continue current treatment with the changes noted in the dictated addendum note Assessment: Vital Signs/I&O: Vital Signs Date Time Temp Pulse Resp B/P (MAP) Pulse Ox O2 Delivery O2 Flow Rate FiO2 07/09/20 15:22 97.3 131 18 135/77 (96) 97 07/09/20 05:38 Room Air I & O 07/08/20 07/08/20 07/09/20 15:00 23:00 07:00 Intake Total 480 ml 240 ml Balance 480 ml 240 ml Current Medications: Meds: Current Medications Medications (Trade) Dose Ordered Sig/Kassidy Route PRN Reason Start Time Stop Time Status Last Admin Dose Admin Acetaminophen (Tylenol) 650 mg PRN Q6HRS PRN PO MILD PAIN / TEMP > 100.3'F 06/24/20 00:30 06/30/20 03:41 Multi-Ingredient Ointment (Analgesic [place]) 1 belinda PRN QID PRN TP MUSCLE PAIN 06/24/20 00:30 06/27/20 00:49 Al Hydroxide/Mg Hydroxide (Mylanta Plus Xs) 15 ml PRN AFTMEALHC PRN PO DYSPEPSIA 06/24/20 00:30 Magnesium Hydroxide (Milk Of Magnesia) 2,400 mg PRN QHS PRN PO CONSTIPATION 06/24/20 00:30 Acetaminophen (Tylenol) 650 mg Q4HRS PRN PO pain or fever 06/24/20 00:30 UNV Acetaminophen (Tylenol) 500 mg BID PO 06/24/20 09:00 07/09/20 20:20 Aspirin (Aspirin Chewable) 81 mg DAILY PO 06/24/20 09:00 07/09/20 09:44 Bumetanide (Bumex) 1 mg DAILY PO 06/24/20 09:00 07/09/20 09:00 Cetirizine HCl (ZyrTEC) 5 mg DAILY PO 06/24/20 09:00 07/09/20 09:46 Docusate Sodium (Colace) 100 mg QODAY PO 06/24/20 09:00 07/08/20 09:24 Furosemide (Lasix) 40 mg BID92 PO 06/24/20 09:00 07/09/20 15:30 Levothyroxine Sodium (Synthroid) 50 mcg DAILY06 PO 06/24/20 06:00 07/09/20 05:02 Metolazone (Zaroxolyn) 5 mg QMWF PO 06/25/20 16:00 07/09/20 17:32 Phenytoin Sodium (Dilantin) 50 mg DAILY PO 06/24/20 09:00 06/27/20 19:43 DC 06/27/20 08:39 Phenytoin Sodium (Dilantin) 100 mg BID PO 06/24/20 09:00 06/27/20 19:43 DC 06/27/20 08:39 Potassium Chloride (Klor-Con) 20 meq BID PO 06/24/20 09:00 07/09/20 20:21 Sennosides (Senna) 8.6 mg BID PO 06/24/20 09:00 07/09/20 20:20 Sertraline HCl (Zoloft) 25 mg DAILY PO 06/24/20 09:00 06/25/20 18:31 DC 06/25/20 09:11 Calcium/Vitamin D (Oscal D 500mg/ 200uts) 1 tab DAILY PO 06/24/20 09:00 07/09/20 09:45 Multivitamins/ Calcium (Thera-M Plus) 1 tab DAILY PO 06/24/20 09:00 07/09/20 09:45 Fish Oil (Fish Oil) 1,000 mg DAILY PO 06/24/20 09:00 07/09/20 09:00 Polyethylene Glycol (miraLAX) 17 gm DAILY PO 06/24/20 09:00 07/09/20 09:44 Vitamin D (Vitamin D3) 50,000 unit WEEKLY PO 06/24/20 09:00 07/08/20 09:24 Melatonin (Melatonin) 6 mg PRN QHS PRN PO INSOMNIA 06/24/20 00:30 07/07/20 19:35 Sertraline HCl (Zoloft) 50 mg DAILY PO 06/26/20 09:00 06/28/20 11:00 DC 06/28/20 09:34 Sertraline HCl (Zoloft) 75 mg DAILY PO 06/29/20 09:00 07/09/20 09:44 Phenytoin Sodium (Dilantin) 300 mg QHS PO 06/28/20 21:00 07/09/20 20:20 Mirtazapine (Remeron) 7.5 mg QHS PO 07/05/20 21:00 07/09/20 20:20 Amoxicillin (Amoxil) 250 mg [id number] PO 07/06/20 21:00 07/13/20 20:59 07/09/20 20:20 I have reviewed the current psychotropics carefully including drug interactions. Risk benefit ratio favors no change other than as noted in my dictated progress note. Diagnosis: Problems: (1) Impulse control disorder, unspecified (2) Anxiety disorder, unspecified (3) Dementia, vascular, with depression (4) Dementia, vascular, with delusions (5) MDD (major depressive disorder) (6) Dementia in Alzheimer's disease with depression (7) Dementia in Alzheimer's disease with delusions (8) Major neurocognitive disorder, due to vascular disease, with behavioral disturbance, mild GAMALIEL MALLOY MD Jul 09, 2020 21:43
--- NOTE | 2020-07-09 23:08 | NUR ---
Last evening pt was irritable and yelling before and during her shower. After wards she remained ittitable and initally refused her meds but finally did take them. After meds she has been sleeping.
[2020-07-10] MEDS: LEVOTHYROXINE 50 MCG TABLET PO SCH (05:22)
[2020-07-10 06:23] VITALS: BP 133/63
--- NOTE | 2020-07-10 08:03 | PDOC ---
Exam Note: Brooks Note: This note is a late entry for 07/08/2020 covers elements not covered in my initial note. Subjective: The patient was reviewed on telehealth rounds in the evening of 07/08/2020 with Sunday NEWMAN. Discussed with nursing staff, reviewed the chart. The patient slept 7-3/4 hours previous night. Overall she remains confused, essentially non-verbal in her responses. Review of Systems: Ambulation impaired in wheelchair. No CV, , pulmonary, eye, ENT system symptoms on review. Reliability poor. Mental Status Exam: The patient is oriented to herself. Many of her verbal responses are non-verbal, grunting noises during responses. Insight and judgment, recent and remote memory, attention and concentration, fund of knowledge is poor consistent with her diagnosis mentioned. Laboratory Data: Reviewed. Impression: Major depressive disorder severe. Anxiety disorder unspecified. Major neurocognitive disorder Alzheimer vascular with delusion, depression, behavioral disturbance. Impulse control disorder. Plan: No change from initial note. Assessment: Vital Signs/I&O: Vital Signs Date Time Temp Pulse Resp B/P (MAP) Pulse Ox O2 Delivery O2 Flow Rate FiO2 07/10/20 06:23 97.2 68 18 133/63 (86) 95 Room Air I & O 07/09/20 07/09/20 07/10/20 15:00 23:00 07:00 Intake Total 480 ml 120 ml Balance 480 ml 120 ml Current Medications: Meds: Current Medications Medications (Trade) Dose Ordered Sig/Kassidy Route PRN Reason Start Time Stop Time Status Last Admin Dose Admin Acetaminophen (Tylenol) 650 mg PRN Q6HRS PRN PO MILD PAIN / TEMP > 100.3'F 06/24/20 00:30 06/30/20 03:41 Multi-Ingredient Ointment (Analgesic [place]) 1 belinda PRN QID PRN TP MUSCLE PAIN 06/24/20 00:30 06/27/20 00:49 Al Hydroxide/Mg Hydroxide (Mylanta Plus Xs) 15 ml PRN AFTMEALHC PRN PO DYSPEPSIA 06/24/20 00:30 Magnesium Hydroxide (Milk Of Magnesia) 2,400 mg PRN QHS PRN PO CONSTIPATION 06/24/20 00:30 Acetaminophen (Tylenol) 650 mg Q4HRS PRN PO pain or fever 06/24/20 00:30 UNV Acetaminophen (Tylenol) 500 mg BID PO 06/24/20 09:00 07/09/20 20:20 Aspirin (Aspirin Chewable) 81 mg DAILY PO 06/24/20 09:00 07/09/20 09:44 Bumetanide (Bumex) 1 mg DAILY PO 06/24/20 09:00 07/09/20 09:00 Cetirizine HCl (ZyrTEC) 5 mg DAILY PO 06/24/20 09:00 07/09/20 09:46 Docusate Sodium (Colace) 100 mg QODAY PO 06/24/20 09:00 07/08/20 09:24 Furosemide (Lasix) 40 mg BID92 PO 06/24/20 09:00 07/09/20 15:30 Levothyroxine Sodium (Synthroid) 50 mcg DAILY06 PO 06/24/20 06:00 07/10/20 05:22 Metolazone (Zaroxolyn) 5 mg QMWF PO 06/25/20 16:00 07/09/20 17:32 Phenytoin Sodium (Dilantin) 50 mg DAILY PO 06/24/20 09:00 06/27/20 19:43 DC 06/27/20 08:39 Phenytoin Sodium (Dilantin) 100 mg BID PO 06/24/20 09:00 06/27/20 19:43 DC 06/27/20 08:39 Potassium Chloride (Klor-Con) 20 meq BID PO 06/24/20 09:00 07/09/20 20:21 Sennosides (Senna) 8.6 mg BID PO 06/24/20 09:00 07/09/20 20:20 Sertraline HCl (Zoloft) 25 mg DAILY PO 06/24/20 09:00 06/25/20 18:31 DC 06/25/20 09:11 Calcium/Vitamin D (Oscal D 500mg/ 200uts) 1 tab DAILY PO 06/24/20 09:00 07/09/20 09:45 Multivitamins/ Calcium (Thera-M Plus) 1 tab DAILY PO 06/24/20 09:00 07/09/20 09:45 Fish Oil (Fish Oil) 1,000 mg DAILY PO 06/24/20 09:00 07/09/20 09:00 Polyethylene Glycol (miraLAX) 17 gm DAILY PO 06/24/20 09:00 07/09/20 09:44 Vitamin D (Vitamin D3) 50,000 unit WEEKLY PO 06/24/20 09:00 07/08/20 09:24 Melatonin (Melatonin) 6 mg PRN QHS PRN PO INSOMNIA 06/24/20 00:30 07/07/20 19:35 Sertraline HCl (Zoloft) 50 mg DAILY PO 06/26/20 09:00 06/28/20 11:00 DC 06/28/20 09:34 Sertraline HCl (Zoloft) 75 mg DAILY PO 06/29/20 09:00 07/09/20 09:44 Phenytoin Sodium (Dilantin) 300 mg QHS PO 06/28/20 21:00 07/09/20 20:20 Mirtazapine (Remeron) 7.5 mg QHS PO 07/05/20 21:00 07/09/20 20:20 Amoxicillin (Amoxil) 250 mg [id number] PO 07/06/20 21:00 07/13/20 20:59 07/09/20 20:20 I have reviewed the current psychotropics carefully including drug interactions. Risk benefit ratio favors no change other than as noted in my dictated progress note. Diagnosis: Problems: (1) Impulse control disorder, unspecified (2) Anxiety disorder, unspecified (3) Dementia, vascular, with depression (4) Dementia, vascular, with delusions (5) MDD (major depressive disorder) (6) Dementia in Alzheimer's disease with depression (7) Dementia in Alzheimer's disease with delusions (8) Major neurocognitive disorder, due to vascular disease, with behavioral disturbance, GAMALIEL Chapman MD Jul 10, 2020 08:03
--- NOTE | 2020-07-10 08:26 | PDOC ---
Exam Note: Brooks Note: This note is a late entry for 07/09/2020 covers elements not covered in my initial note. Subjective: The patient was reviewed on telehealth rounds in the evening of 07/09/2020 with Vani NEWMAN. Discussed with nursing staff, reviewed the chart. The patient slept 7 hours previous night. The patient has been somewhat cranky. Nursing staff wander whether it could be contributed by the antibiotics. She remains on Amoxil for the UTI and we will make sure we will give it with meals to help GI symptoms. Review of Systems: Ambulation impaired in wheelchair. No CV, , pulmonary, eye, ENT system symptoms on review. Reliability poor. Mental Status Exam: The patient is oriented to herself. Insight and judgment, recent and remote memory, attention and concentration, fund of knowledge is poor consistent with her diagnosis. Laboratory Data: Reviewed. Impression: Major depressive disorder severe. Anxiety disorder unspecified. Major neurocognitive disorder Alzheimer vascular with delusion, depression, behavioral disturbance. Impulse control disorder. UTI Plan: No change from initial note. Treat the UTI. Adjust further as clinically indicated. Assessment: Vital Signs/I&O: Vital Signs Date Time Temp Pulse Resp B/P (MAP) Pulse Ox O2 Delivery O2 Flow Rate FiO2 07/10/20 06:23 97.2 68 18 133/63 (86) 95 Room Air I & O 07/09/20 07/09/20 07/10/20 15:00 23:00 07:00 Intake Total 480 ml 120 ml Balance 480 ml 120 ml Current Medications: Meds: Current Medications Medications (Trade) Dose Ordered Sig/Kassidy Route PRN Reason Start Time Stop Time Status Last Admin Dose Admin Acetaminophen (Tylenol) 650 mg PRN Q6HRS PRN PO MILD PAIN / TEMP > 100.3'F 06/24/20 00:30 06/30/20 03:41 Multi-Ingredient Ointment (Analgesic [place]) 1 belinda PRN QID PRN TP MUSCLE PAIN 06/24/20 00:30 06/27/20 00:49 Al Hydroxide/Mg Hydroxide (Mylanta Plus Xs) 15 ml PRN AFTMEALHC PRN PO DYSPEPSIA 06/24/20 00:30 Magnesium Hydroxide (Milk Of Magnesia) 2,400 mg PRN QHS PRN PO CONSTIPATION 06/24/20 00:30 Acetaminophen (Tylenol) 650 mg Q4HRS PRN PO pain or fever 06/24/20 00:30 UNV Acetaminophen (Tylenol) 500 mg BID PO 06/24/20 09:00 07/09/20 20:20 Aspirin (Aspirin Chewable) 81 mg DAILY PO 06/24/20 09:00 07/09/20 09:44 Bumetanide (Bumex) 1 mg DAILY PO 06/24/20 09:00 07/09/20 09:00 Cetirizine HCl (ZyrTEC) 5 mg DAILY PO 06/24/20 09:00 07/09/20 09:46 Docusate Sodium (Colace) 100 mg QODAY PO 06/24/20 09:00 07/08/20 09:24 Furosemide (Lasix) 40 mg BID92 PO 06/24/20 09:00 07/09/20 15:30 Levothyroxine Sodium (Synthroid) 50 mcg DAILY06 PO 06/24/20 06:00 07/10/20 05:22 Metolazone (Zaroxolyn) 5 mg QMWF PO 06/25/20 16:00 07/09/20 17:32 Phenytoin Sodium (Dilantin) 50 mg DAILY PO 06/24/20 09:00 06/27/20 19:43 DC 06/27/20 08:39 Phenytoin Sodium (Dilantin) 100 mg BID PO 06/24/20 09:00 06/27/20 19:43 DC 06/27/20 08:39 Potassium Chloride (Klor-Con) 20 meq BID PO 06/24/20 09:00 07/09/20 20:21 Sennosides (Senna) 8.6 mg BID PO 06/24/20 09:00 07/09/20 20:20 Sertraline HCl (Zoloft) 25 mg DAILY PO 06/24/20 09:00 06/25/20 18:31 DC 06/25/20 09:11 Calcium/Vitamin D (Oscal D 500mg/ 200uts) 1 tab DAILY PO 06/24/20 09:00 07/09/20 09:45 Multivitamins/ Calcium (Thera-M Plus) 1 tab DAILY PO 06/24/20 09:00 07/09/20 09:45 Fish Oil (Fish Oil) 1,000 mg DAILY PO 06/24/20 09:00 07/09/20 09:00 Polyethylene Glycol (miraLAX) 17 gm DAILY PO 06/24/20 09:00 07/09/20 09:44 Vitamin D (Vitamin D3) 50,000 unit WEEKLY PO 06/24/20 09:00 07/08/20 09:24 Melatonin (Melatonin) 6 mg PRN QHS PRN PO INSOMNIA 06/24/20 00:30 07/07/20 19:35 Sertraline HCl (Zoloft) 50 mg DAILY PO 06/26/20 09:00 06/28/20 11:00 DC 06/28/20 09:34 Sertraline HCl (Zoloft) 75 mg DAILY PO 06/29/20 09:00 07/09/20 09:44 Phenytoin Sodium (Dilantin) 300 mg QHS PO 06/28/20 21:00 07/09/20 20:20 Mirtazapine (Remeron) 7.5 mg QHS PO 07/05/20 21:00 07/09/20 20:20 Amoxicillin (Amoxil) 250 mg [id number] PO 07/06/20 21:00 07/13/20 20:59 07/09/20 20:20 I have reviewed the current psychotropics carefully including drug interactions. Risk benefit ratio favors no change other than as noted in my dictated progress note. Diagnosis: Problems: (1) Impulse control disorder, unspecified (2) Anxiety disorder, unspecified (3) Dementia, vascular, with depression (4) Dementia, vascular, with delusions (5) MDD (major depressive disorder) (6) Dementia in Alzheimer's disease with depression (7) Dementia in Alzheimer's disease with delusions (8) Major neurocognitive disorder, due to vascular disease, with behavioral disturbance, mild (9) UTI (urinary tract infection) GAMALIEL MALLOY MD Jul 10, 2020 08:26
[2020-07-10] MEDS: POLYETHYLENE GLYCOL 3350 17 GM PACKET. PO SCH (08:58)
[2020-07-10] MEDS: ACETAMINOPHEN 500 MG TABLET PO SCH ×2 (08:58→19:55)
[2020-07-10] MEDS: ASPIRIN CHEWABLE 81 MG TABLET. PO SCH (08:58)
[2020-07-10] MEDS: OMEGA-3 FATTY ACIDS/FISH OIL 1,000 MG CAPSULE. PO SCH (08:58)
[2020-07-10] MEDS: AMOXICILLIN 250 MG CAPSULE PO SCH ×3 (08:58→19:57)
[2020-07-10] MEDS: CETIRIZINE HCL 10 MG TABLET PO SCH (08:58)
[2020-07-10] MEDS: SERTRALINE 25 MG TABLET. PO SCH (08:59)
[2020-07-10] MEDS: MULTIVITAMIN with MINERAL TABLET. PO SCH (08:59)
[2020-07-10] MEDS: SENNOSIDES 8.6 MG TABLET PO SCH ×2 (08:59→19:55)
[2020-07-10] MEDS: CALCIUM CARB/VIT D3 500/200 TABLET PO SCH (08:59)
[2020-07-10] MEDS: FUROSEMIDE 40 MG TABLET PO SCH ×2 (08:59→14:33)
[2020-07-10] MEDS: POTASSIUM CHLORIDE 20 MEQ TABLET.ER. PO SCH ×2 (08:59→19:54)
[2020-07-10] MEDS: DOCUSATE SODIUM 100 MG CAPSULE PO SCH (09:00)
[2020-07-10] MEDS: BUMETANIDE 1 MG TABLET PO SCH (09:00)
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
--- NOTE | 2020-07-10 10:58 | NUR ---
WEEKLY ACTIVITY THERAPY NOTE Date of Admission: 06/23 Date of AT Assessment: 06/24 Precipitating behaviors that initiated intake and admission: Aggressive behaviors at SNF Goal aimed: to increase engagement and focus/ attention Initial Goal: Pt. will participate in at least one individual Activity Therapy session for at least ten minutes, before discharge. Goal changed 06/26: Pt. will participate in at least one individual Activity Therapy session for at least ten minutes, fully, before discharge. Weekly progress towards goal: on track 0/1 Group participation level: zero, 1 failed attempt Weekly highlights: Behaviors observed: little more irritable on Tuesday, increased grunting, social, wanders mathews without a mask Plan: no change to goal Beneficial adaptations:
[2020-07-10 15:37] VITALS: BP 152/82
--- NOTE | 2020-07-10 16:08 | NUR ---
[facility] Social Work Discharge Planning Form Patient Name LEROY BAHENA Admit Date: 06/23/2020 DISCHARGE PLAN Discharge Destination: [facility] Care Assessment: No Level II Assessment: No Transportation: Facility will p/u between 1030 and 1200 Special Instructions/Notes: Please fax discharge orders and current medication list. DISCHARGE TO FACILITY Facility: [facility] Address: [address] [place] [address], [place] [address] Contact Name: Inna Anderson (ADON) (FIORDALIZA) PCP: Dr. Rincon
--- NOTE | 2020-07-10 16:46 | NUR ---
Patient in hallway eating breakfast at time of assessment. Patient is more irritable the last few days but is cooperative and calm. Takes medications whole with no problems. Hard to assess mental status due to patient not speaking, moans and grunts to talk. Says yeah at times. Patient speaks some but not enough to assess orientation. Patient is alert with no complaints. No further concerns at this time.
[2020-07-10] MEDS: MIRTAZAPINE 7.5 MG TABLET. PO SCH (19:54)
[2020-07-10] MEDS: PHENYTOIN SODIUM EXTENDED 100 MG CAPSULE PO SCH (19:55)
[2020-07-10] MEDS: LACTOBACILLUS RHAMNOSUS GG 1 CAPSULE. PO SCH (19:57)
--- NOTE | 2020-07-10 21:02 | PDOC ---
Exam Note: Brooks Note: Please also refer to the separate dictated note~for this date of service dictated separately.~Patient seen individually. Discussed the patient with Nursing staff reviewed the chart.~Reviewed interim history and current functioning. Reviewed vital signs,~Labs/ Radiology~and current medications noted below. Continue current treatment with the changes noted in the dictated addendum note Assessment: Vital Signs/I&O: Vital Signs Date Time Temp Pulse Resp B/P (MAP) Pulse Ox O2 Delivery O2 Flow Rate FiO2 07/10/20 15:37 98.1 73 16 152/82 (105) 98 07/10/20 06:23 Room Air I & O 07/09/20 07/09/20 07/10/20 15:00 23:00 07:00 Intake Total 480 ml 120 ml Balance 480 ml 120 ml Current Medications: Meds: Current Medications Medications (Trade) Dose Ordered Sig/Kassidy Route PRN Reason Start Time Stop Time Status Last Admin Dose Admin Acetaminophen (Tylenol) 650 mg PRN Q6HRS PRN PO MILD PAIN / TEMP > 100.3'F 06/24/20 00:30 06/30/20 03:41 Multi-Ingredient Ointment (Analgesic [place]) 1 belinda PRN QID PRN TP MUSCLE PAIN 06/24/20 00:30 06/27/20 00:49 Al Hydroxide/Mg Hydroxide (Mylanta Plus Xs) 15 ml PRN AFTMEALHC PRN PO DYSPEPSIA 06/24/20 00:30 Magnesium Hydroxide (Milk Of Magnesia) 2,400 mg PRN QHS PRN PO CONSTIPATION 06/24/20 00:30 Acetaminophen (Tylenol) 650 mg Q4HRS PRN PO pain or fever 06/24/20 00:30 UNV Acetaminophen (Tylenol) 500 mg BID PO 06/24/20 09:00 07/10/20 19:55 Aspirin (Aspirin Chewable) 81 mg DAILY PO 06/24/20 09:00 07/10/20 08:58 Bumetanide (Bumex) 1 mg DAILY PO 06/24/20 09:00 07/10/20 09:00 Cetirizine HCl (ZyrTEC) 5 mg DAILY PO 06/24/20 09:00 07/10/20 08:58 Docusate Sodium (Colace) 100 mg QODAY PO 06/24/20 09:00 07/10/20 09:00 Furosemide (Lasix) 40 mg BID92 PO 06/24/20 09:00 07/10/20 14:33 Levothyroxine Sodium (Synthroid) 50 mcg DAILY06 PO 06/24/20 06:00 07/10/20 05:22 Metolazone (Zaroxolyn) 5 mg QMWF PO 06/25/20 16:00 07/09/20 17:32 Phenytoin Sodium (Dilantin) 50 mg DAILY PO 06/24/20 09:00 06/27/20 19:43 DC 06/27/20 08:39 Phenytoin Sodium (Dilantin) 100 mg BID PO 06/24/20 09:00 06/27/20 19:43 DC 06/27/20 08:39 Potassium Chloride (Klor-Con) 20 meq BID PO 06/24/20 09:00 07/10/20 19:54 Sennosides (Senna) 8.6 mg BID PO 06/24/20 09:00 07/10/20 19:55 Sertraline HCl (Zoloft) 25 mg DAILY PO 06/24/20 09:00 06/25/20 18:31 DC 06/25/20 09:11 Calcium/Vitamin D (Oscal D 500mg/ 200uts) 1 tab DAILY PO 06/24/20 09:00 07/10/20 08:59 Multivitamins/ Calcium (Thera-M Plus) 1 tab DAILY PO 06/24/20 09:00 07/10/20 08:59 Fish Oil (Fish Oil) 1,000 mg DAILY PO 06/24/20 09:00 07/10/20 08:58 Polyethylene Glycol (miraLAX) 17 gm DAILY PO 06/24/20 09:00 07/10/20 08:58 Vitamin D (Vitamin D3) 50,000 unit WEEKLY PO 06/24/20 09:00 07/08/20 09:24 Melatonin (Melatonin) 6 mg PRN QHS PRN PO INSOMNIA 06/24/20 00:30 07/07/20 19:35 Sertraline HCl (Zoloft) 50 mg DAILY PO 06/26/20 09:00 06/28/20 11:00 DC 06/28/20 09:34 Sertraline HCl (Zoloft) 75 mg DAILY PO 06/29/20 09:00 07/10/20 08:59 Phenytoin Sodium (Dilantin) 300 mg QHS PO 06/28/20 21:00 07/10/20 19:55 Mirtazapine (Remeron) 7.5 mg QHS PO 07/05/20 21:00 07/10/20 19:54 Amoxicillin (Amoxil) 250 mg [id number] PO 07/06/20 21:00 07/13/20 20:59 07/10/20 19:57 Lactobacillus Rhamnosus (Culturelle) 1 cap BID PO 07/10/20 21:00 07/10/20 19:57 Current Medications Medications (Trade) Dose Ordered Sig/Kassidy Route PRN Reason Start Time Stop Time Status Last Admin Dose Admin Lactobacillus Rhamnosus (Culturelle) 1 cap BID PO 07/10/20 21:00 07/10/20 19:57 I have reviewed the current psychotropics carefully including drug interactions. Risk benefit ratio favors no change other than as noted in my dictated progress note. Diagnosis: Problems: (1) Impulse control disorder, unspecified (2) Anxiety disorder, unspecified (3) Dementia, vascular, with depression (4) Dementia, vascular, with delusions (5) MDD (major depressive disorder) (6) Dementia in Alzheimer's disease with depression (7) Dementia in Alzheimer's disease with delusions (8) Major neurocognitive disorder, due to vascular disease, with behavioral disturbance, mild GAMALIEL MALLOY MD Jul 10, 2020 21:02
[2020-07-10] MEDS ORDERED: AMOX-260 PO (23:41)
[2020-07-10] MEDS ORDERED: METH28OI2 TP (23:42)
[2020-07-10] MEDS ORDERED: MIRT7.5T8 PO (23:43)
[2020-07-10] MEDS ORDERED: MAG30ORA2 PO (23:44)
[2020-07-10] MEDS ORDERED: LACT1CAP21 PO (23:45)
[2020-07-10] MEDS ORDERED: MAGN400O7 PO (23:45)
[2020-07-10] MEDS ORDERED: CHOL500021 PO (23:46)
--- NOTE | 2020-07-11 03:47 | NUR ---
Nursing Note the patient was resistive and irritable this shift. The patient was resistive with medications but did eventually take them whole. The patient was unable to answer assessment questions.
[2020-07-11] MEDS: LEVOTHYROXINE 50 MCG TABLET PO SCH (05:59)
[2020-07-11 06:32] VITALS: BP 148/73
[2020-07-11] MEDS: MULTIVITAMIN with MINERAL TABLET. PO SCH (08:33)
[2020-07-11] MEDS: OMEGA-3 FATTY ACIDS/FISH OIL 1,000 MG CAPSULE. PO SCH (08:33)
[2020-07-11] MEDS: ASPIRIN CHEWABLE 81 MG TABLET. PO SCH (08:33)
[2020-07-11] MEDS: AMOXICILLIN 250 MG CAPSULE PO SCH (08:33)
[2020-07-11] MEDS: CALCIUM CARB/VIT D3 500/200 TABLET PO SCH (08:33)
[2020-07-11] MEDS: CETIRIZINE HCL 10 MG TABLET PO SCH (08:33)
[2020-07-11] MEDS: ACETAMINOPHEN 500 MG TABLET PO SCH (08:33)
[2020-07-11] MEDS: LACTOBACILLUS RHAMNOSUS GG 1 CAPSULE. PO SCH (08:33)
[2020-07-11] MEDS: SERTRALINE 25 MG TABLET. PO SCH (08:34)
[2020-07-11] MEDS: FUROSEMIDE 40 MG TABLET PO SCH (08:34)
[2020-07-11] MEDS: POTASSIUM CHLORIDE 20 MEQ TABLET.ER. PO SCH (08:34)
[2020-07-11] MEDS: POLYETHYLENE GLYCOL 3350 17 GM PACKET. PO SCH (08:34)
[2020-07-11] MEDS: SENNOSIDES 8.6 MG TABLET PO SCH (08:35)
[2020-07-11] MEDS: metOLazone 5 MG TABLET PO SCH (08:35)
[2020-07-11] MEDS: BUMETANIDE 1 MG TABLET PO SCH (09:00)
--- NOTE | 2020-07-11 12:41 | NUR ---
Transition Record was faxed to follow-up provider with the following elements: Abbey Miranda, discharge packet Reason for admission, procedures, tests, principal diagnosis, pending studies, patient instructions, 24/01 contact information for unit, phone number to obtain pending test results, plan for follow-up care, physician follow-up, advanced directive information, and medication list with dose, duration and instructions. This information was included in the following documents: History and physical, lab results, study results, progress notes, social work planning form, DC instruction form, patient visit summary, and medication reconciliation form. Date & time record faxed: 07/10/2020 0900pm 07/11/2020 1200 Record faxed to: Monica/Mandy Miranda Record discussed with/ report given to: TRENT Anderson
--- NOTE | 2020-07-11 21:12 | PDOC ---
Exam Note: Brooks Note: Please also refer to the separate dictated note~for this date of service dictated separately.~Patient seen individually. Discussed the patient with Nursing staff reviewed the chart.~Reviewed interim history and current functioning. Reviewed vital signs,~Labs/ Radiology~and current medications noted below. Continue current treatment with the changes noted in the dictated addendum note Assessment: Vital Signs/I&O: Vital Signs Date Time Temp Pulse Resp B/P (MAP) Pulse Ox O2 Delivery O2 Flow Rate FiO2 07/11/20 06:32 97.2 68 16 148/73 (98) 98 Room Air I & O 07/10/20 07/10/20 07/11/20 15:00 23:00 07:00 Intake Total 580 ml 240 ml Balance 580 ml 240 ml Current Medications: Meds: Current Medications Medications (Trade) Dose Ordered Sig/Kassidy Route PRN Reason Start Time Stop Time Status Last Admin Dose Admin Acetaminophen (Tylenol) 650 mg PRN Q6HRS PRN PO MILD PAIN / TEMP > 100.3'F 06/24/20 00:30 07/11/20 12:46 DC 06/30/20 03:41 Multi-Ingredient Ointment (Analgesic [place]) 1 belinda PRN QID PRN TP MUSCLE PAIN 06/24/20 00:30 07/11/20 12:46 DC 06/27/20 00:49 Al Hydroxide/Mg Hydroxide (Mylanta Plus Xs) 15 ml PRN AFTMEALHC PRN PO DYSPEPSIA 06/24/20 00:30 07/11/20 12:46 DC Magnesium Hydroxide (Milk Of Magnesia) 2,400 mg PRN QHS PRN PO CONSTIPATION 06/24/20 00:30 07/11/20 12:46 DC Acetaminophen (Tylenol) 650 mg Q4HRS PRN PO pain or fever 06/24/20 00:30 UNV Acetaminophen (Tylenol) 500 mg BID PO 06/24/20 09:00 07/11/20 12:46 DC 07/11/20 08:33 Aspirin (Aspirin Chewable) 81 mg DAILY PO 06/24/20 09:00 07/11/20 12:46 DC 07/11/20 08:33 Bumetanide (Bumex) 1 mg DAILY PO 06/24/20 09:00 07/11/20 12:46 DC 07/11/20 09:00 Cetirizine HCl (ZyrTEC) 5 mg DAILY PO 06/24/20 09:00 07/11/20 12:46 DC 07/11/20 08:33 Docusate Sodium (Colace) 100 mg QODAY PO 06/24/20 09:00 07/11/20 12:46 DC 07/10/20 09:00 Furosemide (Lasix) 40 mg BID92 PO 06/24/20 09:00 07/11/20 12:46 DC 07/11/20 08:34 Levothyroxine Sodium (Synthroid) 50 mcg DAILY06 PO 06/24/20 06:00 07/11/20 12:46 DC 07/11/20 05:59 Metolazone (Zaroxolyn) 5 mg QMWF PO 06/25/20 16:00 07/11/20 12:46 DC 07/11/20 08:35 Phenytoin Sodium (Dilantin) 50 mg DAILY PO 06/24/20 09:00 06/27/20 19:43 DC 06/27/20 08:39 Phenytoin Sodium (Dilantin) 100 mg BID PO 06/24/20 09:00 06/27/20 19:43 DC 06/27/20 08:39 Potassium Chloride (Klor-Con) 20 meq BID PO 06/24/20 09:00 07/11/20 12:46 DC 07/11/20 08:34 Sennosides (Senna) 8.6 mg BID PO 06/24/20 09:00 07/11/20 12:46 DC 07/11/20 08:35 Sertraline HCl (Zoloft) 25 mg DAILY PO 06/24/20 09:00 06/25/20 18:31 DC 06/25/20 09:11 Calcium/Vitamin D (Oscal D 500mg/ 200uts) 1 tab DAILY PO 06/24/20 09:00 07/11/20 12:46 DC 07/11/20 08:33 Multivitamins/ Calcium (Thera-M Plus) 1 tab DAILY PO 06/24/20 09:00 07/11/20 12:46 DC 07/11/20 08:33 Fish Oil (Fish Oil) 1,000 mg DAILY PO 06/24/20 09:00 07/11/20 12:46 DC 07/11/20 08:33 Polyethylene Glycol (miraLAX) 17 gm DAILY PO 06/24/20 09:00 07/11/20 12:46 DC 07/11/20 08:34 Vitamin D (Vitamin D3) 50,000 unit WEEKLY PO 06/24/20 09:00 07/11/20 12:46 DC 07/08/20 09:24 Melatonin (Melatonin) 6 mg PRN QHS PRN PO INSOMNIA 06/24/20 00:30 07/11/20 12:46 DC 07/07/20 19:35 Sertraline HCl (Zoloft) 50 mg DAILY PO 06/26/20 09:00 06/28/20 11:00 DC 06/28/20 09:34 Sertraline HCl (Zoloft) 75 mg DAILY PO 06/29/20 09:00 07/11/20 12:46 DC 07/11/20 08:34 Phenytoin Sodium (Dilantin) 300 mg QHS PO 06/28/20 21:00 07/11/20 12:46 DC 07/10/20 19:55 Mirtazapine (Remeron) 7.5 mg QHS PO 07/05/20 21:00 07/11/20 12:46 DC 07/10/20 19:54 Amoxicillin (Amoxil) 250 mg [id number] PO 07/06/20 21:00 07/11/20 12:46 DC 07/11/20 08:33 Lactobacillus Rhamnosus (Culturelle) 1 cap BID PO 07/10/20 21:00 07/11/20 12:46 DC 07/11/20 08:33 I have reviewed the current psychotropics carefully including drug interactions. Risk benefit ratio favors no change other than as noted in my dictated progress note. Diagnosis: Problems: (1) Impulse control disorder, unspecified (2) Anxiety disorder, unspecified (3) Dementia, vascular, with depression (4) Dementia, vascular, with delusions (5) MDD (major depressive disorder) (6) Dementia in Alzheimer's disease with depression (7) Dementia in Alzheimer's disease with delusions (8) Major neurocognitive disorder, due to vascular disease, with behavioral disturbance, mild GAMAGAMALIEL HERNANDEZ MD Jul 11, 2020 21:12
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
--- NOTE | 2020-07-12 08:29 | PDOC ---
Exam Note: Brooks Note: This note is a late entry for 07/10/2020 covers elements not covered in my initial note. Subjective: The patient was reviewed on telehealth rounds in the morning of 07/10/2020 for a treatment team meeting with Angela Ochoa and Katty (bilingual social worker), Rina, activity therapy and Vani RN. Discussed with nursing staff, reviewed the chart. The patient slept 7-1/2 hours previous night. The patient has been cranky in the morning. She does have UTI and is on Amoxil for this. Review of Systems: Ambulation impaired in wheelchair. No CV, , pulmonary, eye, ENT system symptoms on review. Mental Status Exam: The patient is oriented to herself. Insight and judgment, recent and remote memory, attention and concentration, fund of knowledge is poor consistent with her diagnosis. Laboratory Data: Reviewed. Impression: Major depressive disorder severe. Anxiety disorder unspecified. Major neurocognitive disorder Alzheimer vascular with delusion, depression, behavioral disturbance. Impulse control disorder. UTI. Plan: Tentative transition back to nursing facility on 07/11. Assessment: Vital Signs/I&O: Vital Signs Date Time Temp Pulse Resp B/P (MAP) Pulse Ox O2 Delivery O2 Flow Rate FiO2 07/11/20 06:32 97.2 68 16 148/73 (98) 98 Room Air I & O 07/11/20 07/11/20 07/12/20 15:00 23:00 07:00 Intake Total 200 ml Balance 200 ml Current Medications: Meds: Current Medications Medications (Trade) Dose Ordered Sig/Kassidy Route PRN Reason Start Time Stop Time Status Last Admin Dose Admin Acetaminophen (Tylenol) 650 mg PRN Q6HRS PRN PO MILD PAIN / TEMP > 100.3'F 06/24/20 00:30 07/11/20 12:46 DC 06/30/20 03:41 Multi-Ingredient Ointment (Analgesic [place]) 1 belinda PRN QID PRN TP MUSCLE PAIN 06/24/20 00:30 07/11/20 12:46 DC 06/27/20 00:49 Al Hydroxide/Mg Hydroxide (Mylanta Plus Xs) 15 ml PRN AFTMEALHC PRN PO DYSPEPSIA 06/24/20 00:30 07/11/20 12:46 DC Magnesium Hydroxide (Milk Of Magnesia) 2,400 mg PRN QHS PRN PO CONSTIPATION 06/24/20 00:30 07/11/20 12:46 DC Acetaminophen (Tylenol) 650 mg Q4HRS PRN PO pain or fever 06/24/20 00:30 UNV Acetaminophen (Tylenol) 500 mg BID PO 06/24/20 09:00 07/11/20 12:46 DC 07/11/20 08:33 Aspirin (Aspirin Chewable) 81 mg DAILY PO 06/24/20 09:00 07/11/20 12:46 DC 07/11/20 08:33 Bumetanide (Bumex) 1 mg DAILY PO 06/24/20 09:00 07/11/20 12:46 DC 07/11/20 09:00 Cetirizine HCl (ZyrTEC) 5 mg DAILY PO 06/24/20 09:00 07/11/20 12:46 DC 07/11/20 08:33 Docusate Sodium (Colace) 100 mg QODAY PO 06/24/20 09:00 07/11/20 12:46 DC 07/10/20 09:00 Furosemide (Lasix) 40 mg BID92 PO 06/24/20 09:00 07/11/20 12:46 DC 07/11/20 08:34 Levothyroxine Sodium (Synthroid) 50 mcg DAILY06 PO 06/24/20 06:00 07/11/20 12:46 DC 07/11/20 05:59 Metolazone (Zaroxolyn) 5 mg QMWF PO 06/25/20 16:00 07/11/20 12:46 DC 07/11/20 08:35 Phenytoin Sodium (Dilantin) 50 mg DAILY PO 06/24/20 09:00 06/27/20 19:43 DC 06/27/20 08:39 Phenytoin Sodium (Dilantin) 100 mg BID PO 06/24/20 09:00 06/27/20 19:43 DC 06/27/20 08:39 Potassium Chloride (Klor-Con) 20 meq BID PO 06/24/20 09:00 07/11/20 12:46 DC 07/11/20 08:34 Sennosides (Senna) 8.6 mg BID PO 06/24/20 09:00 07/11/20 12:46 DC 07/11/20 08:35 Sertraline HCl (Zoloft) 25 mg DAILY PO 06/24/20 09:00 06/25/20 18:31 DC 06/25/20 09:11 Calcium/Vitamin D (Oscal D 500mg/ 200uts) 1 tab DAILY PO 06/24/20 09:00 07/11/20 12:46 DC 07/11/20 08:33 Multivitamins/ Calcium (Thera-M Plus) 1 tab DAILY PO 06/24/20 09:00 07/11/20 12:46 DC 07/11/20 08:33 Fish Oil (Fish Oil) 1,000 mg DAILY PO 06/24/20 09:00 07/11/20 12:46 DC 07/11/20 08:33 Polyethylene Glycol (miraLAX) 17 gm DAILY PO 06/24/20 09:00 07/11/20 12:46 DC 07/11/20 08:34 Vitamin D (Vitamin D3) 50,000 unit WEEKLY PO 06/24/20 09:00 07/11/20 12:46 DC 07/08/20 09:24 Melatonin (Melatonin) 6 mg PRN QHS PRN PO INSOMNIA 06/24/20 00:30 07/11/20 12:46 DC 07/07/20 19:35 Sertraline HCl (Zoloft) 50 mg DAILY PO 06/26/20 09:00 06/28/20 11:00 DC 06/28/20 09:34 Sertraline HCl (Zoloft) 75 mg DAILY PO 06/29/20 09:00 07/11/20 12:46 DC 07/11/20 08:34 Phenytoin Sodium (Dilantin) 300 mg QHS PO 06/28/20 21:00 07/11/20 12:46 DC 07/10/20 19:55 Mirtazapine (Remeron) 7.5 mg QHS PO 07/05/20 21:00 07/11/20 12:46 DC 07/10/20 19:54 Amoxicillin (Amoxil) 250 mg [id number] PO 07/06/20 21:00 07/11/20 12:46 DC 07/11/20 08:33 Lactobacillus Rhamnosus (Culturelle) 1 cap BID PO 07/10/20 21:00 07/11/20 12:46 DC 07/11/20 08:33 I have reviewed the current psychotropics carefully including drug interactions. Risk benefit ratio favors no change other than as noted in my dictated progress note. Diagnosis: Problems: (1) Impulse control disorder, unspecified (2) Anxiety disorder, unspecified (3) Dementia, vascular, with depression (4) Dementia, vascular, with delusions (5) MDD (major depressive disorder) (6) Dementia in Alzheimer's disease with depression (7) Dementia in Alzheimer's disease with delusions (8) Major neurocognitive disorder, due to vascular disease, with behavioral disturbance, mild (9) UTI (urinary tract infection) GAMALIEL MALLOY MD Jul 12, 2020 08:29
== END 2020-07-11 11:25 | DRG 885 ==
LOC: GEROPSY 23:25
PROVIDERS: ADMIT Psychiatry & Neurology Psychiatry; ATTEND Psychiatry & Neurology Psychiatry
DX: F33.3 Major depressive disorder, recurrent, severe with psychotic symptoms (principal); F01.51 Vascular dementia, unspecified severity, with behavioral disturbance; E43 Unspecified severe protein-calorie malnutrition; F79 Unspecified intellectual disabilities; F02.81 Dementia in other diseases classified elsewhere, unspecified severity, with behavioral disturbance; Z68.41 Body mass index [BMI] 40.0-44.9, adult; N39.0 Urinary tract infection, site not specified; I50.9 Heart failure, unspecified; E78.5 Hyperlipidemia, unspecified; E03.9 Hypothyroidism, unspecified; R29.6 Repeated falls; F63.9 Impulse disorder, unspecified; F41.9 Anxiety disorder, unspecified; G40.909 Epilepsy, unspecified, not intractable, without status epilepticus; E53.8 Deficiency of other specified B group vitamins; E66.9 Obesity, unspecified; G30.9 Alzheimer's disease, unspecified; K59.09 Other constipation; Z20.822 Contact with and (suspected) exposure to COVID-19; Z99.3 Dependence on wheelchair; Z79.899 Other long term (current) drug therapy; Z87.440 Personal history of urinary (tract) infections; Z79.82 Long term (current) use of aspirin
CPT/HCPCS: 36415; 80053; 80185; 81001; 82306; 82607; 83036; 83540; 83550; 83735; 83880; 85025; 85379; 86592; 87077; 87086; 87186; 93005; 99285; U0003; 97530

== ENCOUNTER 2021-03-16 15:10 | Inpatient (IN) | payer MEDICARE ==
[~2021-03-16] VITALS: Ht 162.6 cm; Wt 72.8 kg
[~2021-03-16 15:10] MED LIST changes: +AMOX-260 PO; +CHOL500021 PO; +LACT1CAP21 PO; +MAG30ORA2 PO; +MAGN400O7 PO; +METH28OI2 TP; +MIRT7.5T8 PO; +POTA-121 PO; -POTA20TA4 PO
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
[2021-03-16] MEDS ORDERED: ACETAMINOPHEN 325 MG TABLET PO PRN ×2 (15:45→16:00)
[2021-03-16] MEDS ORDERED: MAGNESIUM HYDROXIDE 2,400 MG/30 ML ORAL.SUSP. PO PRN ×2 (15:45→16:00)
[2021-03-16] MEDS ORDERED: MAG HYDROX/AL HYDROX/SIMETH 30 ML ORAL.SUSP PO PRN ×2 (15:45→16:00)
[2021-03-16] MEDS ORDERED: METHYL SALICYLATE/MENTHOL TOPICAL OINTMENT 57GM TUBE. TP PRN (15:45)
[2021-03-16 15:48] VITALS: BP 143/75
[2021-03-16] MEDS ORDERED: NON FORMULARY ITEM (Methyl Salicylate/Menthol (Analgesic Balm) 1 APP) TP PRN (16:00)
[2021-03-16] MEDS ORDERED: TRAM-48 PO (16:26)
[2021-03-16] MEDS ORDERED: TRAZ-120 PO (16:26)
[2021-03-16] MEDS ORDERED: ASCO500C PO (16:26)
[2021-03-16] MEDS ORDERED: ZINC100T PO (16:26)
[2021-03-16] MEDS ORDERED: DENO60DI SQ (16:26)
[2021-03-16] MEDS ORDERED: PHEN100C4 PO (16:26)
[2021-03-16] MEDS ORDERED: MELA3TAB30 PO (16:26)
[2021-03-16] MEDS ORDERED: CALC500T54 PO (16:26)
[2021-03-16 17:09] LABS: MAGNESIUM 2.2 mg/dL (1.8-2.4); PHENY 20.6 mcg/mL (10.0-20.0)
[2021-03-16 20:29] LABS: ALBUMIN 3.2 g/dL (3.4-5.0); ALBUMIN/GLOBULIN RATIO 0.9 (1.0-1.7); CALCIUM 8.6 mg/dL (8.5-10.1); CREATININE 0.6 mg/dL (0.6-1.0); GFR 99.1; POTASSIUM 3.3 mmol/L (3.5-5.1); TOTAL BILIRUBIN 0.2 mg/dL (0.2-1.0); TOTAL PROTEIN 6.9 g/dL (6.4-8.2)
[2021-03-16] MEDS: MELATONIN 3 MG TABLET PO SCH (21:51)
[2021-03-16] MEDS: POTASSIUM CHLORIDE 20 MEQ TABLET.ER. PO SCH (21:52)
[2021-03-16] MEDS: PHENYTOIN SODIUM EXTENDED 100 MG CAPSULE PO SCH (21:52)
[2021-03-16] MEDS: SENNOSIDES 8.6 MG TABLET PO SCH (21:53)
[2021-03-16] MEDS: MIRTAZAPINE 7.5 MG TABLET. PO SCH (21:53)
[2021-03-16] MEDS: traZODone 50 MG TABLET. PO SCH (21:53)
--- NOTE | 2021-03-16 21:57 | PDOC ---
Exam Note: Brooks Note: Please also refer to the separate dictated note~for this date of service dictated separately.~Patient seen individually. Discussed the patient with Nursing staff reviewed the chart.~Reviewed interim history and current functioning. Reviewed vital signs,~Labs/ Radiology~and current medications noted below. Continue current treatment with the changes noted in the dictated addendum note Assessment: Vital Signs/I&O: Vital Signs Date Time Temp Pulse Resp B/P (MAP) Pulse Ox O2 Delivery O2 Flow Rate FiO2 03/16/21 15:48 97.4 78 20 143/75 (97) 95 Room Air Labs: Laboratory Tests Test 03/16/21 16:22 D-Dimer (Arlene) 0.77 mg/L (0.00-0.50) H Sodium Level 141 mmol/L (136-145) Potassium Level 3.3 mmol/L (3.5-5.1) L Chloride Level 103 mmol/L (98-107) Carbon Dioxide Level 32 mmol/L (21-32) Anion Gap 6 (6-14) Blood Urea Nitrogen 21 mg/dL (7-20) H Creatinine 0.6 mg/dL (0.6-1.0) Estimated GFR (Cockcroft-Gault) 99.1 BUN/Creatinine Ratio 35 (6-20) H Glucose Level 114 mg/dL (70-99) H Calcium Level 8.6 mg/dL (8.5-10.1) Magnesium Level 2.2 mg/dL (1.8-2.4) Total Bilirubin 0.2 mg/dL (0.2-1.0) Aspartate Amino Transferase (AST) 25 U/L (15-37) Alanine Aminotransferase (ALT) 33 U/L (14-59) Alkaline Phosphatase 104 U/L (46-116) Total Protein 6.9 g/dL (6.4-8.2) Albumin 3.2 g/dL (3.4-5.0) L Albumin/Globulin Ratio 0.9 (1.0-1.7) L Phenytoin (Dilantin) Level 20.6 mcg/mL (10.0-20.0) H Phenytoin Last Dose Date 03/16/21 Phenytoin Last Dose Time 0800 Current Medications: Meds: Current Medications Medications (Trade) Dose Ordered Sig/Kassidy Route PRN Reason Start Time Stop Time Status Last Admin Dose Admin Mirtazapine (Remeron) 7.5 mg QHS PO 03/16/21 21:00 03/16/21 21:53 Phenytoin Sodium (Dilantin) 300 mg QHS PO 03/16/21 21:00 03/16/21 21:52 Potassium Chloride (Klor-Con) 20 meq BID PO 03/16/21 21:00 03/16/21 21:52 Sennosides (Senna) 8.6 mg BID PO 03/16/21 21:00 03/16/21 21:53 Trazodone HCl (Desyrel) 50 mg QHS PO 03/16/21 21:00 03/16/21 21:53 Melatonin (Melatonin) 6 mg HS PO 03/16/21 21:00 03/16/21 21:51 I have reviewed the current psychotropics carefully including drug interactions. Risk benefit ratio favors no change other than as noted in my dictated progress note. Diagnosis: Problems: (1) MDD (major depressive disorder) GAMALIEL MALLOY MD Mar 16, 2021 21:57
[2021-03-16 23:10] LABS: THYROXINE 6.6 ug/dL (4.5-12.0)
[2021-03-17 01:11] LABS: HEMOGLOBIN A1C 5.4 % (4.8-5.6)
--- NOTE | 2021-03-17 01:12 | NUR ---
Nursing Note Pt in hallway in w/c making lots of odd noises, intrusive to peers, resistive to staff. Resistive to taking PO meds, wants to refuse but requires max encouragement to get her to be agreeable. Pt took meds 1 by 1 with water eventually.
[2021-03-17 06:11] VITALS: BP 117/78
[2021-03-17] MEDS: LEVOTHYROXINE 50 MCG TABLET PO SCH (06:30)
[2021-03-17 06:46] LABS: BASO # 0.1 x10^3/uL (0.0-0.2); BASO % 1 % (0-3); EOS # 0.1 x10^3/uL (0.0-0.7); EOS % 3 % (0-3); HEMATOCRIT 34.4 % (36.0-47.0); HEMOGLOBIN 11.6 g/dL (12.0-15.5); LYMPH # 1.8 x10^3/uL (1.0-4.8); LYMPH % 33 % (24-48); MEAN CORPUSCULAR HEMOGLOBIN 33 pg (25-35); MEAN CORPUSCULAR HGB CONC 34 g/dL (31-37); MEAN CORPUSCULAR VOLUME 97 fL (79-100); MONO # 0.4 x10^3/uL (0.0-1.1); MONO % 8 % (0-9); NEUT # 2.9 x10^3uL (1.8-7.7); NEUT % 55 % (31-73); PLATELET COUNT 239 x10^3/uL (140-400); RED BLOOD COUNT 3.54 x10^6/uL (3.50-5.40); RED CELL DISTRIBUTION WIDTH 14.2 % (11.5-14.5); WHITE BLOOD COUNT 5.3 x10^3/uL (4.0-11.0)
[2021-03-17] MEDS: SERTRALINE 50 MG TABLET. PO SCH (08:06)
[2021-03-17] MEDS: POLYETHYLENE GLYCOL 3350 17 GM PACKET. PO SCH (08:06)
[2021-03-17] MEDS: POTASSIUM CHLORIDE 20 MEQ TABLET.ER. PO SCH ×2 (08:07→20:25)
[2021-03-17] MEDS: MULTIVITAMIN with MINERAL TABLET. PO SCH (08:07)
[2021-03-17] MEDS: SENNOSIDES 8.6 MG TABLET PO SCH ×2 (08:07→20:25)
[2021-03-17] MEDS: ZINC SULFATE 220 MG CAPSULE. PO SCH (08:07)
[2021-03-17] MEDS: CETIRIZINE HCL 10 MG TABLET PO SCH (08:07)
[2021-03-17] MEDS: ASCORBIC ACID 500 MG TABLET PO SCH (08:07)
[2021-03-17] MEDS: ASPIRIN CHEWABLE 81 MG TABLET. PO SCH (08:07)
[2021-03-17] MEDS ORDERED: PHENYTOIN SODIUM EXTENDED 100 MG CAPSULE PO SCH (09:00)
--- NOTE | 2021-03-17 10:06 | NUR ---
Nursing note: Patient in hallway for morning medication and assessment. Medications taken with high encouragement crushed in applesauce. She has limited verbal interaction r/t intellectual disability. She propels self in w/c, requires a 2 person pivot transfer. Posturing and swinging closed fist towards this nurse. Patient refused breakfast this morning. She repetitively yells or grunts out. She is currently sitting in her w/c in hallway. Will continue to monitor.
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
[2021-03-17 16:00] VITALS: BP 120/78
[2021-03-17 16:50] LABS: THYROID STIM HORMONE (TSH) 1.6 uIU/mL (0.358-3.740)
[2021-03-17] MEDS: MELATONIN 3 MG TABLET PO SCH (20:25)
[2021-03-17] MEDS: traZODone 50 MG TABLET. PO SCH (20:25)
[2021-03-17] MEDS: MIRTAZAPINE 7.5 MG TABLET. PO SCH (20:26)
[2021-03-17] MEDS: PHENYTOIN SODIUM EXTENDED 100 MG CAPSULE PO SCH (20:26)
--- NOTE | 2021-03-17 22:44 | PDOC ---
Exam Note: Brooks Note: Please also refer to the separate dictated note~for this date of service dictated separately.~Patient seen individually. Discussed the patient with Nursing staff reviewed the chart.~Reviewed interim history and current functioning. Reviewed vital signs,~Labs/ Radiology~and current medications noted below. Continue current treatment with the changes noted in the dictated addendum note Assessment: Vital Signs/I&O: Vital Signs Date Time Temp Pulse Resp B/P (MAP) Pulse Ox O2 Delivery O2 Flow Rate FiO2 03/17/21 16:00 97.2 72 20 120/78 (92) 99 Room Air I & O 03/16/21 03/16/21 03/17/21 15:00 23:00 07:00 Intake Total 360 ml Balance 360 ml Labs: Laboratory Tests Test 03/17/21 06:22 White Blood Count 5.3 x10^3/uL (4.0-11.0) Red Blood Count 3.54 x10^6/uL (3.50-5.40) Hemoglobin 11.6 g/dL (12.0-15.5) L Hematocrit 34.4 % (36.0-47.0) L Mean Corpuscular Volume 97 fL (79-100) Mean Corpuscular Hemoglobin 33 pg (25-35) Mean Corpuscular Hemoglobin Concent 34 g/dL (31-37) Red Cell Distribution Width 14.2 % (11.5-14.5) Platelet Count 239 x10^3/uL (140-400) Neutrophils (%) (Auto) 55 % (31-73) Lymphocytes (%) (Auto) 33 % (24-48) Monocytes (%) (Auto) 8 % (0-9) Eosinophils (%) (Auto) 3 % (0-3) Basophils (%) (Auto) 1 % (0-3) Neutrophils # (Auto) 2.9 x10^3uL (1.8-7.7) Lymphocytes # (Auto) 1.8 x10^3/uL (1.0-4.8) Monocytes # (Auto) 0.4 x10^3/uL (0.0-1.1) Eosinophils # (Auto) 0.1 x10^3/uL (0.0-0.7) Basophils # (Auto) 0.1 x10^3/uL (0.0-0.2) Current Medications: Meds: Laboratory Tests Test 03/17/21 06:22 White Blood Count 5.3 x10^3/uL Red Blood Count 3.54 x10^6/uL Hemoglobin 11.6 g/dL Hematocrit 34.4 % Mean Corpuscular Volume 97 fL Mean Corpuscular Hemoglobin 33 pg Mean Corpuscular Hemoglobin Concent 34 g/dL Red Cell Distribution Width 14.2 % Platelet Count 239 x10^3/uL Neutrophils (%) (Auto) 55 % Lymphocytes (%) (Auto) 33 % Monocytes (%) (Auto) 8 % Eosinophils (%) (Auto) 3 % Basophils (%) (Auto) 1 % Neutrophils # (Auto) 2.9 x10^3uL Lymphocytes # (Auto) 1.8 x10^3/uL Monocytes # (Auto) 0.4 x10^3/uL Eosinophils # (Auto) 0.1 x10^3/uL Basophils # (Auto) 0.1 x10^3/uL Current Medications Medications (Trade) Dose Ordered Sig/Kassidy Route PRN Reason Start Time Stop Time Status Last Admin Dose Admin Acetaminophen (Tylenol) 650 mg PRN Q6HRS PRN PO MILD PAIN / TEMP > 100.3'F 03/16/21 15:45 Multi-Ingredient Ointment (Analgesic Radisson) 1 belinda PRN QID PRN TP MUSCLE PAIN 03/16/21 15:45 Al Hydroxide/Mg Hydroxide (Mylanta Plus Xs) 15 ml PRN AFTMEALHC PRN PO DYSPEPSIA 03/16/21 15:45 Magnesium Hydroxide (Milk Of Magnesia) 2,400 mg PRN QHS PRN PO CONSTIPATION 03/16/21 15:45 Acetaminophen (Tylenol) 650 mg PRN Q6HRS PRN PO pain or fever 03/16/21 16:00 UNV Aspirin (Aspirin Chewable) 81 mg DAILY PO 03/17/21 09:00 03/17/21 08:07 Levothyroxine Sodium (Synthroid) 50 mcg DAILY06 PO 03/17/21 06:00 03/17/21 06:30 Al Hydroxide/Mg Hydroxide (Mylanta Plus Xs) 15 ml PRN AFTMEALHC PRN PO DYSPEPSIA 03/16/21 16:00 UNV Magnesium Hydroxide (Milk Of Magnesia) 2,400 mg PRN QHS PRN PO CONSTIPATION 03/16/21 16:00 UNV Metolazone (Zaroxolyn) 5 mg QMWF@0900 PO 03/18/21 09:00 Mirtazapine (Remeron) 7.5 mg QHS PO 03/16/21 21:00 03/17/21 20:26 Phenytoin Sodium (Dilantin) 300 mg QHS PO 03/16/21 21:00 03/17/21 20:26 Potassium Chloride (Klor-Con) 20 meq BID PO 03/16/21 21:00 03/17/21 20:25 Sennosides (Senna) 8.6 mg BID PO 03/16/21 21:00 03/17/21 20:25 Non-Formulary Medication (Methyl Salicylate/ Menthol (Analgesic Radisson)) 1 belinda PRN QID PRN TP MUSCLE PAIN 03/16/21 16:00 UNV Multivitamins/ Calcium (Thera-M Plus) 1 tab DAILY PO 03/17/21 09:00 03/17/21 08:07 Polyethylene Glycol (miraLAX) 17 gm DAILY PO 03/17/21 09:00 03/17/21 08:06 Vitamin D (Vitamin D3) 50,000 unit WEEKLY PO 03/23/21 09:00 Cetirizine HCl (ZyrTEC) 10 mg DAILY PO 03/17/21 09:00 03/17/21 08:07 Sertraline HCl (Zoloft) 50 mg DAILY PO 03/17/21 09:00 03/17/21 08:06 Denosumab (Prolia) 60 mg QMONTH SQ 04/15/21 09:00 UNV Phenytoin Sodium (Dilantin) 100 mg BID92 PO 03/17/21 09:00 Cancel Tramadol HCl (Ultram) 50 mg PRN BID PRN PO pain 03/16/21 16:15 Trazodone HCl (Desyrel) 50 mg QHS PO 03/16/21 21:00 03/17/21 20:25 Ascorbic Acid (Vitamin C) 1,000 mg DAILY PO 03/17/21 09:00 03/17/21 08:07 Melatonin (Melatonin) 6 mg HS PO 03/16/21 21:00 03/17/21 20:25 Zinc Sulfate (Orazinc) 220 mg DAILY PO 03/17/21 09:00 03/17/21 08:07 Current Medications Medications (Trade) Dose Ordered Sig/Kassidy Route PRN Reason Start Time Stop Time Status Last Admin Dose Admin Aspirin (Aspirin Chewable) 81 mg DAILY PO 03/17/21 09:00 03/17/21 08:07 Levothyroxine Sodium (Synthroid) 50 mcg DAILY06 PO 03/17/21 06:00 03/17/21 06:30 Multivitamins/ Calcium (Thera-M Plus) 1 tab DAILY PO 03/17/21 09:00 03/17/21 08:07 Polyethylene Glycol (miraLAX) 17 gm DAILY PO 03/17/21 09:00 03/17/21 08:06 Cetirizine HCl (ZyrTEC) 10 mg DAILY PO 03/17/21 09:00 03/17/21 08:07 Sertraline HCl (Zoloft) 50 mg DAILY PO 03/17/21 09:00 03/17/21 08:06 Ascorbic Acid (Vitamin C) 1,000 mg DAILY PO 03/17/21 09:00 03/17/21 08:07 Zinc Sulfate (Orazinc) 220 mg DAILY PO 03/17/21 09:00 03/17/21 08:07 I have reviewed the current psychotropics carefully including drug interactions. Risk benefit ratio favors no change other than as noted in my dictated progress note. Diagnosis: Problems: (1) Impulse control disorder, unspecified (2) Anxiety disorder, unspecified (3) Dementia, vascular, with depression (4) Dementia, vascular, with delusions (5) Dementia in Alzheimer's disease with depression (6) Dementia in Alzheimer's disease with delusions (7) Major neurocognitive disorder, due to vascular disease, with behavioral disturbance, mild (8) MDD (major depressive disorder) GAMALIEL MALLOY MD Mar 17, 2021 22:44
--- NOTE | 2021-03-17 22:56 | HP ---
ADMIT DATE: 03/16/2021 PSYCHIATRIC ADMISSION AND HISTORY/EVALUATION This is a late entry for 03/16, covers the elements not covered in my initial note of 03/16. I met with the patient on the evening of and discussed with Angela Das, nursing staff development coordinator and nursing staff who gathered referral information from [facility]. IDENTIFYING DATA: The patient is a 70-year-old female who was readmitted to us with a diagnosis of major depressive disorder with psychotic features, impulse control disorder and intellectual disability. She has been residing at [facility] and has been extremely aggressive towards peers. She has been chasing peers, yelling, screaming, refusing medications, agitated, having marked mood swings. She has failed outpatient psychiatric interventions. Behavior is deemed dangerous, unmanageable to outpatient treatment, resulting in this referral. CHIEF COMPLAINT: "No". The patient was in a wheelchair in the hallway, where I met with her in the evening of 03/16. HISTORY OF PRESENT ILLNESS: The patient has a history of the above psychiatric diagnosis, possible bipolar disorder in addition. She has been recently more angry, aggressive, with sleep and appetite changes, worsening paranoia. No active suicidal or homicidal ideation. PAST PSYCHIATRIC HISTORY: As above. MEDICAL HISTORY: Positive for B12 deficiency, anemia, hypothyroidism, seizure disorder, hyperlipidemia, heart murmur, edema. ACCU-CHEKS: Negative. CODE STATUS: Full code. DRUG ALLERGIES: Negative. DIET: Mechanical, soft. MEDICATIONS: Takes medications whole. AMBULATES: 2-person transfer. CURRENT PSYCHOTROPICS: Trazodone 50 mg at bedtime, Zoloft 50 mg a day. Dilantin 100 mg b.i.d. and 300 mg at bedtime, Dilantin level is 20.9. We will reduce the Dilantin to 300 mg at bedtime, repeat another level in 2 days and defer management of her seizure meds to Dr. Diaz/Dr. Marc. FAMILY HISTORY: Noncontributory. SOCIAL HISTORY: No history of alcohol, drug abuse, physical, sexual or elder abuse history is noted. She is not known to be a perpetrator. REACTION TO HOSPITALIZATION: The patient oblivious of it. ASSETS: Supportive living at the facility. REVIEW OF SYSTEMS: Ambulation impaired, in wheelchair. No CV, , pulmonary, eye, ENT system symptoms on review. MENTAL STATUS EXAM: The patient is oriented to herself. Insight, judgment, recent and remote memory, attention, concentration, fund of knowledge poor consistent with her diagnosis. IMPRESSION: Major depressive disorder with psychotic features, impulse control disorder; rule out bipolar disorder, unspecified; anxiety disorder, unspecified; intellectual disability, unspecified. Rest diagnoses as above. PLAN: Admit to Geropsychiatry unit at [facility]. I will see the patient daily individually from a psychiatric standpoint, medical followup with Dr. Diaz/Dr. Marc. Will continue the patient on her current psychotropics. Changes in Dilantin is noted. Repeat labs level. Observe baseline, then make adjustments in her psychotropics as clinically indicated. ESTIMATED LENGTH OF STAY: 10-12 days. DISPOSITION: Plan is back to jail when stable. FLOR DR: Matt TID: [id number]
--- NOTE | 2021-03-17 23:20 | NUR ---
Pt sitting up in her bed when approached. Pt yelling out at times to attempt to make her needs known, limited verbal interaction r/t intellectual disability. Pt cooperative with assessment and compliant with medications administered whole. Pt began yelling out when her feet were uncovered for physical assessment, she continued to yell until they were covered to her satisfaction and the blankets smooth and tucked. No physical aggression noted thus far this shift.
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
[2021-03-18] MEDS: LEVOTHYROXINE 50 MCG TABLET PO SCH (05:46)
[2021-03-18 06:03] VITALS: BP 148/80
[2021-03-18] MEDS: ASPIRIN CHEWABLE 81 MG TABLET. PO SCH (08:30)
[2021-03-18] MEDS: SERTRALINE 50 MG TABLET. PO SCH (08:31)
[2021-03-18] MEDS: metOLazone 5 MG TABLET PO SCH (08:31)
[2021-03-18] MEDS: POLYETHYLENE GLYCOL 3350 17 GM PACKET. PO SCH (08:31)
[2021-03-18] MEDS: POTASSIUM CHLORIDE 20 MEQ TABLET.ER. PO SCH ×2 (08:31→19:47)
[2021-03-18] MEDS: MULTIVITAMIN with MINERAL TABLET. PO SCH (08:31)
[2021-03-18] MEDS: ASCORBIC ACID 500 MG TABLET PO SCH (08:31)
[2021-03-18] MEDS: ZINC SULFATE 220 MG CAPSULE. PO SCH (08:31)
[2021-03-18] MEDS: SENNOSIDES 8.6 MG TABLET PO SCH ×2 (08:31→19:47)
[2021-03-18] MEDS: traZODone 50 MG TABLET. PO SCH (08:31)
[2021-03-18] MEDS: CETIRIZINE HCL 10 MG TABLET PO SCH (08:52)
--- NOTE | 2021-03-18 11:00 | NUR ---
ACTIVITY THERAPY ASSESSMENT completed based on notes, observation and interview. Pt was unable to answer any assessment questions and continued to propel her self down the hallway away from AT in her wheelchair. Per notes pt has been resistive with medications and postured towards staff. Pt is unable to comprehend questions which requires lots of encouraging and prompting. Initial goal aimed to increase stress management and relaxation skills. Pt will participate in at least three individual or group Activity Therapy sessions before discharge. Addendum: 04/02/21 at 1135 by DEEDEE WALTERS ACT Goal repeated 04/02
[2021-03-18 16:42] VITALS: BP 101/69
--- NOTE | 2021-03-18 18:34 | NUR ---
Spoke with Doctor Booker about patient agitation and refusing medication at first. New order for Zoloft 75 mg daily
[2021-03-18] MEDS: MELATONIN 3 MG TABLET PO SCH (19:47)
[2021-03-18] MEDS: PHENYTOIN SODIUM EXTENDED 100 MG CAPSULE PO SCH (19:47)
[2021-03-18] MEDS: MIRTAZAPINE 7.5 MG TABLET. PO SCH (19:47)
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
--- NOTE | 2021-03-18 22:46 | PDOC ---
Exam Note: Brooks Note: Please also refer to the separate dictated note~for this date of service dictated separately.~Patient seen individually. Discussed the patient with Nursing staff reviewed the chart.~Reviewed interim history and current functioning. Reviewed vital signs,~Labs/ Radiology~and current medications noted below. Continue current treatment with the changes noted in the dictated addendum note Assessment: Vital Signs/I&O: Vital Signs Date Time Temp Pulse Resp B/P (MAP) Pulse Ox O2 Delivery O2 Flow Rate FiO2 03/18/21 16:42 97.3 96 20 101/69 (80) 96 03/18/21 06:03 Room Air I & O 03/17/21 03/17/21 03/18/21 15:00 23:00 07:00 Intake Total 360 ml 360 ml 120 ml Balance 360 ml 360 ml 120 ml Current Medications: Meds: Current Medications Medications (Trade) Dose Ordered Sig/Kassidy Route PRN Reason Start Time Stop Time Status Last Admin Dose Admin Metolazone (Zaroxolyn) 5 mg QMWF@0900 PO 03/18/21 09:00 03/18/21 08:31 I have reviewed the current psychotropics carefully including drug interactions. Risk benefit ratio favors no change other than as noted in my dictated progress note. Diagnosis: Problems: (1) Major depressive disorder with psychotic features (2) Impulse control disorder, unspecified (3) Anxiety disorder, unspecified GAMALIEL MALLOY MD Mar 18, 2021 22:46
[2021-03-19] MEDS: LEVOTHYROXINE 50 MCG TABLET PO SCH (06:17)
[2021-03-19 06:37] VITALS: BP 117/70
--- NOTE | 2021-03-19 07:01 | PDOC ---
Exam Note: Brooks Note: This note is a late entry for 03/17/2021 covers elements not covered in my initial note. Subjective: The patient was seen individually in the evening of 03/17/2021 with Katharine NEWMAN, discussed and reviewed the chart. The patient slept 5 hours previous night. She has been anxious, resistive to cares, hitting staff, resistive to medications. She takes her meds crushed, suspicious, paranoid. Oral intake is poor. Dilantin was reduced and repeat level is awaited. Review of Systems: Ambulation impaired in wheelchair. 2-person transfer. No CV, , pulmonary, eye, ENT system symptoms on review. Reliability poor. Mental Status Exam: The patient is reasonably oriented. Insight and judgment, recent and remote memory, attention and concentration, fund of knowledge is poor consistent with her diagnoses. Laboratory Data: Reviewed. Impression: Major depressive disorder with psychotic features. Anxiety disorder unspecified. Impulse control disorder unspecified. Plan: Continue psychotropics from initial note. Given her paranoia, mood lability we may add Depakote and perhaps low dose Risperdal before we decide once the Dilantin level is therapeutic. Assessment: Vital Signs/I&O: Vital Signs Date Time Temp Pulse Resp B/P (MAP) Pulse Ox O2 Delivery O2 Flow Rate FiO2 03/19/21 06:37 97.8 65 20 117/70 (86) 98 Room Air I & O 03/18/21 03/18/21 03/19/21 15:00 23:00 07:00 Intake Total 240 ml 440 ml Balance 240 ml 440 ml Current Medications: Meds: Current Medications Medications (Trade) Dose Ordered Sig/Kassidy Route PRN Reason Start Time Stop Time Status Last Admin Dose Admin Acetaminophen (Tylenol) 650 mg PRN Q6HRS PRN PO MILD PAIN / TEMP > 100.3'F 03/16/21 15:45 Multi-Ingredient Ointment (Analgesic [place]) 1 belinda PRN QID PRN TP MUSCLE PAIN 03/16/21 15:45 Al Hydroxide/Mg Hydroxide (Mylanta Plus Xs) 15 ml PRN AFTMEALHC PRN PO DYSPEPSIA 03/16/21 15:45 Magnesium Hydroxide (Milk Of Magnesia) 2,400 mg PRN QHS PRN PO CONSTIPATION 03/16/21 15:45 Acetaminophen (Tylenol) 650 mg PRN Q6HRS PRN PO pain or fever 03/16/21 16:00 UNV Aspirin (Aspirin Chewable) 81 mg DAILY PO 03/17/21 09:00 03/18/21 08:30 Levothyroxine Sodium (Synthroid) 50 mcg DAILY06 PO 03/17/21 06:00 03/19/21 06:17 Al Hydroxide/Mg Hydroxide (Mylanta Plus Xs) 15 ml PRN AFTMEALHC PRN PO DYSPEPSIA 03/16/21 16:00 UNV Magnesium Hydroxide (Milk Of Magnesia) 2,400 mg PRN QHS PRN PO CONSTIPATION 03/16/21 16:00 UNV Metolazone (Zaroxolyn) 5 mg QMWF@0900 PO 03/18/21 09:00 03/18/21 08:31 Mirtazapine (Remeron) 7.5 mg QHS PO 03/16/21 21:00 03/18/21 19:47 Phenytoin Sodium (Dilantin) 300 mg QHS PO 03/16/21 21:00 03/18/21 19:47 Potassium Chloride (Klor-Con) 20 meq BID PO 03/16/21 21:00 03/18/21 19:47 Sennosides (Senna) 8.6 mg BID PO 03/16/21 21:00 03/18/21 19:47 Non-Formulary Medication (Methyl Salicylate/ Menthol (Analgesic [place])) 1 belinda PRN QID PRN TP MUSCLE PAIN 03/16/21 16:00 UNV Multivitamins/ Calcium (Thera-M Plus) 1 tab DAILY PO 03/17/21 09:00 03/18/21 08:31 Polyethylene Glycol (miraLAX) 17 gm DAILY PO 03/17/21 09:00 03/18/21 08:31 Vitamin D (Vitamin D3) 50,000 unit WEEKLY PO 03/23/21 09:00 Cetirizine HCl (ZyrTEC) 10 mg DAILY PO 03/17/21 09:00 03/18/21 08:52 Sertraline HCl (Zoloft) 50 mg DAILY PO 03/17/21 09:00 03/18/21 18:34 DC 03/18/21 08:31 Denosumab (Prolia) 60 mg QMONTH SQ 04/15/21 09:00 UNV Phenytoin Sodium (Dilantin) 100 mg BID92 PO 03/17/21 09:00 Cancel Tramadol HCl (Ultram) 50 mg PRN BID PRN PO pain 03/16/21 16:15 Trazodone HCl (Desyrel) 50 mg QHS PO 03/16/21 21:00 03/18/21 08:31 Ascorbic Acid (Vitamin C) 1,000 mg DAILY PO 03/17/21 09:00 03/18/21 08:31 Melatonin (Melatonin) 6 mg HS PO 03/16/21 21:00 03/18/21 19:47 Zinc Sulfate (Orazinc) 220 mg DAILY PO 03/17/21 09:00 03/18/21 08:31 Sertraline HCl (Zoloft) 75 mg DAILY PO 03/19/21 09:00 Current Medications Medications (Trade) Dose Ordered Sig/Kassidy Route PRN Reason Start Time Stop Time Status Last Admin Dose Admin Metolazone (Zaroxolyn) 5 mg QMWF@0900 PO 03/18/21 09:00 03/18/21 08:31 I have reviewed the current psychotropics carefully including drug interactions. Risk benefit ratio favors no change other than as noted in my dictated progress note. Diagnosis: Problems: (1) Intellectual disability (2) Impulse control disorder, unspecified (3) Anxiety disorder, unspecified (4) Major neurocognitive disorder, due to vascular disease, with behavioral disturbance, mild (5) Major depressive disorder with psychotic features GAMALIEL MALLOY MD Mar 19, 2021 07:01
[2021-03-19 07:34] LABS: BASO # 0.1 x10^3/uL (0.0-0.2); BASO % 1 % (0-3); EOS # 0.2 x10^3/uL (0.0-0.7); EOS % 3 % (0-3); HEMATOCRIT 34.8 % (36.0-47.0); HEMOGLOBIN 11.7 g/dL (12.0-15.5); LYMPH # 1.9 x10^3/uL (1.0-4.8); LYMPH % 36 % (24-48); MEAN CORPUSCULAR HEMOGLOBIN 33 pg (25-35); MEAN CORPUSCULAR HGB CONC 34 g/dL (31-37); MEAN CORPUSCULAR VOLUME 97 fL (79-100); MONO # 0.4 x10^3/uL (0.0-1.1); MONO % 8 % (0-9); NEUT # 2.8 x10^3uL (1.8-7.7); NEUT % 52 % (31-73); PLATELET COUNT 249 x10^3/uL (140-400); RED BLOOD COUNT 3.57 x10^6/uL (3.50-5.40); RED CELL DISTRIBUTION WIDTH 14.4 % (11.5-14.5); WHITE BLOOD COUNT 5.4 x10^3/uL (4.0-11.0)
[2021-03-19 07:42] LABS: ALBUMIN/GLOBULIN RATIO 0.8 (1.0-1.7); CALCIUM 9.1 mg/dL (8.5-10.1); CREATININE 0.5 mg/dL (0.6-1.0); GFR 122.3; POTASSIUM 4.7 mmol/L (3.5-5.1); TOTAL BILIRUBIN 0.2 mg/dL (0.2-1.0); TOTAL PROTEIN 6.6 g/dL (6.4-8.2)
[2021-03-19] MEDS: ZINC SULFATE 220 MG CAPSULE. PO SCH (08:48)
[2021-03-19] MEDS: MULTIVITAMIN with MINERAL TABLET. PO SCH (08:48)
[2021-03-19] MEDS: ASCORBIC ACID 500 MG TABLET PO SCH (08:48)
[2021-03-19] MEDS: CETIRIZINE HCL 10 MG TABLET PO SCH (08:48)
[2021-03-19] MEDS: POLYETHYLENE GLYCOL 3350 17 GM PACKET. PO SCH (08:48)
[2021-03-19] MEDS: ASPIRIN CHEWABLE 81 MG TABLET. PO SCH (08:48)
[2021-03-19] MEDS: SENNOSIDES 8.6 MG TABLET PO SCH ×3 (08:49→21:00)
[2021-03-19] MEDS: POTASSIUM CHLORIDE 20 MEQ TABLET.ER. PO SCH ×3 (08:49→21:00)
[2021-03-19] MEDS: SERTRALINE 50 MG TABLET. PO SCH (08:49)
--- NOTE | 2021-03-19 11:15 | NUR ---
WEEKLY ACTIVITY THERAPY NOTE Date of Admission:03/16/21 Date of AT Assessment: 03/18 Precipitating behaviors that initiated intake and admission: PA towards peers, chasing peers in mathews, yelling & screaming, refusing medications. Goal aimed: increase stress management and relaxation skills Initial Goal: Pt will participate in at least three individual or group Activity Therapy sessions before discharge Weekly progress towards goal: moving to group therapy side on 03/23 Group participation level: no participation Weekly highlights: no participation Behaviors observed: intrusive with peers, posturing at staff Plan: group Therapy starts on 03/23 Beneficial adaptations: encouragement
--- NOTE | 2021-03-19 11:51 | TX PLAN ---
Interdisciplinary Tx Plan Admission Information Mar 16, 2021 at 15:10 Legal Status (on Admission): Voluntary DPOA/Guardian Name: Fariba Odonnell-Sister/Guardian Contact Other Contact Name: Monica Omalley (DONTE) Other Contact Verified Code Status: Full Code Allergies: Coded Allergies: No Known Drug Allergies (Unverified , 06/22/20) Diagnoses Primary Diagnosis: (1) Intellectual disability (2) Impulse control disorder, unspecified (3) Anxiety disorder, unspecified (4) Major neurocognitive disorder, due to vascular disease, with behavioral disturbance, mild (5) Major depressive disorder with psychotic features Reasons for Admission: Aggressive, Agitated, Sig. Change Appetite, Combative, Confusion/Disoriented, Poor impulse control Problem in Patient's Words: Per sister, "Cate Shukla struggles with change and the whole covid status has been a struggle. At her facility they had been back on quarantine and just recently got out of that. She has been hitting others and I have talked with her about that. With Cate Shukla's intellectual disability, she only understands so much." Additional Admission Comments: None noted at this time. Problems Active Problems: Aggressive, combative, agitated, not eating, poor impulse control Inactive Problems: None noted at this time. Pt Strengths/Limitations Ability for [place]: Poor Cognitive Functioning/Ability: Poor Communication Skills/Ability: Poor Financial Resources: Fair Insight/Judgement: Poor Intellectual Ability: Poor Physical Health: Fair Social Skills: Poor Stability in Family: Good Stability in School/Work: Fair Verbal Skills: Poor Discharge Criteria Discharge Criteria: No need for close observ., Adequate arrangements @DC, Verbal commit med comply, Improved behavior, Improved mood/thought Other Discharge Comments: None noted at this time. Preliminary Discharge Plan Preliminary DC Plan: Current Living Arrange. Special Precautions Special Precautions: Agitation/Assault Fall Risk: Moderate Other Precautions (specify): Pt uses WC Initial D/C Plan Plan is for pt to return to [facility]. Identified Discharge Needs: Pt to continue to be supported by services and resources through [facility] and her family. Currently Utilized Resources Currently Utilized Resources/P: PCP-Dr. Gerardo Rincon at [facility] Sister/Guardian-Fariba Odonnell Referrals Community Resources: None noted at this time. Identified Problems/Hx/Goals Objectives/Short-Term Goals Short Term Goals: Control abnormal behavior, Dec. Aggression, Dec. Outbursts, Improved Social Skills, Medication Stabilization, Monitor Med Effects, Prevent Deterioration Short Term Goals in Patient's: Would like to get her behaviors such as hitting under control. Interventions/Frequency Staff Interventions/Frequency&: Psychiatry to assess pt three times per week for medication management. Nursing to assess behaviors, monitor medications, and complete 15 minute checks daily. Social work to see pt at least two times weekly to aid in return to placement. Activities to encourage pt to participate in group activities daily. 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 She preferred wire stripping over shredding papers as she realized that she was paid more for stripping rubber. 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 Cate Shukla attended till she was 17y.o. Reportedly, Cate Shukla learned how to tell time by looking a the [employer] years ago and would be able to associate when certain television shows would come on. Community Follow-up PCP Community Provider/Family Inpu: Pt sister/guardian aware of pt hospitalization and is available for further information as needed. Treatment Plan Explained Patient/Supervisor [place] Department had this treatment plan explained to him/her as indicated by the signature below and has been given the opportunity to ask questions and make suggestions: Date: Patient/Supervisor [place] [facility] Signature: MIGUEL COVINGTON Mar 19, 2021 11:51
[2021-03-19 15:20] LABS: CARBAM < 0.5 mcg/mL (4.0-12.0)
[2021-03-19 16:28] VITALS: BP 141/67
--- NOTE | 2021-03-19 17:48 | NUR ---
Patient up in wheelchair propel self in hallway. Communicates by grunting at times. Patient refused medication this am. Appetite is between 20 to 30%spoke with sister on ways to get her to take her medication and to eat. patient sister suggest we give her peppermint patties, macaroni,chocolate shake, mash potatoes with cheese, meatballs and malts. Patient was given chocolate ensure which she likes. We will look at speech to see if they have a communication board to help with communication between staff.
[2021-03-19] MEDS: MIRTAZAPINE 7.5 MG TABLET. PO SCH (19:45)
[2021-03-19] MEDS: PHENYTOIN SODIUM EXTENDED 100 MG CAPSULE PO SCH (19:45)
[2021-03-19] MEDS: traZODone 50 MG TABLET. PO SCH (19:45)
[2021-03-19] MEDS: MELATONIN 3 MG TABLET PO SCH (19:45)
--- NOTE | 2021-03-19 21:58 | NUR ---
Pt sitting up in w/c in the hallway when approached. Pt with severe mood lability, initially pleasant and smiling but quickly became irritable and resistive when presented with medications despite being agreeable to taking them just moments before. When pt was handed her medication cup, she looked at her pills, said "no!", then threw the pills into an empty pt room. As I was attempting to remove the cup from her hand, she began hitting me and swatting my behind. Pt was given time to de-escalate in her room and then re-approached with medications after 30 minutes but continued to refuse her pills. When staff returned to pt room to assist her with HS cares, pt had pulled at her brief, removing pieces of the inner lining and throwing it around her room. Pt hitting staff during cares and brief change. HS Trazodone, Remeron, Melatonin, Dilantin, and PRN Zydis administered crushed via oral syringe. Pt tried to spit some of her medications at staff but was unsuccessful for the most part.
--- NOTE | 2021-03-19 22:15 | PDOC ---
Exam Note: Brooks Note: Please also refer to the separate dictated note~for this date of service dictated separately.~Patient seen individually. Discussed the patient with Nursing staff reviewed the chart.~Reviewed interim history and current functioning. Reviewed vital signs,~Labs/ Radiology~and current medications noted below. Continue current treatment with the changes noted in the dictated addendum note Assessment: Vital Signs/I&O: Vital Signs Date Time Temp Pulse Resp B/P (MAP) Pulse Ox O2 Delivery O2 Flow Rate FiO2 03/19/21 16:28 98.0 82 20 141/67 (91) 96 03/19/21 06:37 Room Air I & O 03/18/21 03/18/21 03/19/21 15:00 23:00 07:00 Intake Total 240 ml 440 ml Balance 240 ml 440 ml Labs: Laboratory Tests Test 03/19/21 05:55 White Blood Count 5.4 x10^3/uL (4.0-11.0) Red Blood Count 3.57 x10^6/uL (3.50-5.40) Hemoglobin 11.7 g/dL (12.0-15.5) L Hematocrit 34.8 % (36.0-47.0) L Mean Corpuscular Volume 97 fL (79-100) Mean Corpuscular Hemoglobin 33 pg (25-35) Mean Corpuscular Hemoglobin Concent 34 g/dL (31-37) Red Cell Distribution Width 14.4 % (11.5-14.5) Platelet Count 249 x10^3/uL (140-400) Neutrophils (%) (Auto) 52 % (31-73) Lymphocytes (%) (Auto) 36 % (24-48) Monocytes (%) (Auto) 8 % (0-9) Eosinophils (%) (Auto) 3 % (0-3) Basophils (%) (Auto) 1 % (0-3) Neutrophils # (Auto) 2.8 x10^3uL (1.8-7.7) Lymphocytes # (Auto) 1.9 x10^3/uL (1.0-4.8) Monocytes # (Auto) 0.4 x10^3/uL (0.0-1.1) Eosinophils # (Auto) 0.2 x10^3/uL (0.0-0.7) Basophils # (Auto) 0.1 x10^3/uL (0.0-0.2) Sodium Level 139 mmol/L (136-145) Potassium Level 4.7 mmol/L (3.5-5.1) Chloride Level 104 mmol/L (98-107) Carbon Dioxide Level 29 mmol/L (21-32) Anion Gap 6 (6-14) Blood Urea Nitrogen 20 mg/dL (7-20) Creatinine 0.5 mg/dL (0.6-1.0) L Estimated GFR (Cockcroft-Gault) 122.3 BUN/Creatinine Ratio 40 (6-20) H Glucose Level 101 mg/dL (70-99) H Calcium Level 9.1 mg/dL (8.5-10.1) Total Bilirubin 0.2 mg/dL (0.2-1.0) Aspartate Amino Transferase (AST) 16 U/L (15-37) Alanine Aminotransferase (ALT) 24 U/L (14-59) Alkaline Phosphatase 97 U/L (46-116) Total Protein 6.6 g/dL (6.4-8.2) Albumin 3.0 g/dL (3.4-5.0) L Albumin/Globulin Ratio 0.8 (1.0-1.7) L Carbamazepine (Tegretol) Level < 0.5 mcg/mL (4.0-12.0) L Carbamazepine Last Dose Date 03/18/21 Carbamazepine Last Dose Time 2100 Current Medications: Meds: Laboratory Tests Test 03/19/21 05:55 White Blood Count 5.4 x10^3/uL Red Blood Count 3.57 x10^6/uL Hemoglobin 11.7 g/dL Hematocrit 34.8 % Mean Corpuscular Volume 97 fL Mean Corpuscular Hemoglobin 33 pg Mean Corpuscular Hemoglobin Concent 34 g/dL Red Cell Distribution Width 14.4 % Platelet Count 249 x10^3/uL Neutrophils (%) (Auto) 52 % Lymphocytes (%) (Auto) 36 % Monocytes (%) (Auto) 8 % Eosinophils (%) (Auto) 3 % Basophils (%) (Auto) 1 % Neutrophils # (Auto) 2.8 x10^3uL Lymphocytes # (Auto) 1.9 x10^3/uL Monocytes # (Auto) 0.4 x10^3/uL Eosinophils # (Auto) 0.2 x10^3/uL Basophils # (Auto) 0.1 x10^3/uL Sodium Level 139 mmol/L Potassium Level 4.7 mmol/L Chloride Level 104 mmol/L Carbon Dioxide Level 29 mmol/L Anion Gap 6 Blood Urea Nitrogen 20 mg/dL Creatinine 0.5 mg/dL Estimated GFR (Cockcroft-Gault) 122.3 BUN/Creatinine Ratio 40 Glucose Level 101 mg/dL Calcium Level 9.1 mg/dL Total Bilirubin 0.2 mg/dL Aspartate Amino Transf (AST/SGOT) 16 U/L Alanine Aminotransferase (ALT/SGPT) 24 U/L Alkaline Phosphatase 97 U/L Total Protein 6.6 g/dL Albumin 3.0 g/dL Albumin/Globulin Ratio 0.8 Carbamazepine (Tegretol) Level < 0.5 mcg/mL Carbamazepine Last Dose Date 03/18/21 Carbamazepine Last Dose Time 2100 Current Medications Medications (Trade) Dose Ordered Sig/Kassidy Route PRN Reason Start Time Stop Time Status Last Admin Dose Admin Acetaminophen (Tylenol) 650 mg PRN Q6HRS PRN PO MILD PAIN / TEMP > 100.3'F 03/16/21 15:45 Multi-Ingredient Ointment (Analgesic [place]) 1 belinda PRN QID PRN TP MUSCLE PAIN 03/16/21 15:45 Al Hydroxide/Mg Hydroxide (Mylanta Plus Xs) 15 ml PRN AFTMEALHC PRN PO DYSPEPSIA 03/16/21 15:45 Magnesium Hydroxide (Milk Of Magnesia) 2,400 mg PRN QHS PRN PO CONSTIPATION 03/16/21 15:45 Acetaminophen (Tylenol) 650 mg PRN Q6HRS PRN PO pain or fever 03/16/21 16:00 UNV Aspirin (Aspirin Chewable) 81 mg DAILY PO 03/17/21 09:00 03/19/21 08:48 Levothyroxine Sodium (Synthroid) 50 mcg DAILY06 PO 03/17/21 06:00 03/19/21 06:17 Al Hydroxide/Mg Hydroxide (Mylanta Plus Xs) 15 ml PRN AFTMEALHC PRN PO DYSPEPSIA 03/16/21 16:00 UNV Magnesium Hydroxide (Milk Of Magnesia) 2,400 mg PRN QHS PRN PO CONSTIPATION 03/16/21 16:00 UNV Metolazone (Zaroxolyn) 5 mg QMWF@0900 PO 03/18/21 09:00 03/18/21 08:31 Mirtazapine (Remeron) 7.5 mg QHS PO 03/16/21 21:00 03/19/21 19:45 Phenytoin Sodium (Dilantin) 300 mg QHS PO 03/16/21 21:00 03/19/21 19:45 Potassium Chloride (Klor-Con) 20 meq BID PO 03/16/21 21:00 03/19/21 08:49 Sennosides (Senna) 8.6 mg BID PO 03/16/21 21:00 03/19/21 08:49 Non-Formulary Medication (Methyl Salicylate/ Menthol (Analgesic [place])) 1 belinda PRN QID PRN TP MUSCLE PAIN 03/16/21 16:00 UNV Multivitamins/ Calcium (Thera-M Plus) 1 tab DAILY PO 03/17/21 09:00 03/19/21 08:48 Polyethylene Glycol (miraLAX) 17 gm DAILY PO 03/17/21 09:00 03/19/21 08:48 Vitamin D (Vitamin D3) 50,000 unit WEEKLY PO 03/23/21 09:00 Cetirizine HCl (ZyrTEC) 10 mg DAILY PO 03/17/21 09:00 03/19/21 08:48 Sertraline HCl (Zoloft) 50 mg DAILY PO 03/17/21 09:00 03/18/21 18:34 DC 03/18/21 08:31 Denosumab (Prolia) 60 mg QMONTH SQ 04/15/21 09:00 UNV Phenytoin Sodium (Dilantin) 100 mg BID92 PO 03/17/21 09:00 Cancel Tramadol HCl (Ultram) 50 mg PRN BID PRN PO pain 03/16/21 16:15 Trazodone HCl (Desyrel) 50 mg QHS PO 03/16/21 21:00 03/19/21 19:45 Ascorbic Acid (Vitamin C) 1,000 mg DAILY PO 03/17/21 09:00 03/19/21 08:48 Melatonin (Melatonin) 6 mg HS PO 03/16/21 21:00 03/19/21 19:45 Zinc Sulfate (Orazinc) 220 mg DAILY PO 03/17/21 09:00 03/19/21 08:48 Sertraline HCl (Zoloft) 75 mg DAILY PO 03/19/21 09:00 03/19/21 08:49 Olanzapine (ZyPREXA ZYDIS) 2.5 mg PRN Q2HR PRN PO PSYCHOSIS 03/19/21 20:15 03/19/21 21:43 Current Medications Medications (Trade) Dose Ordered Sig/Kassidy Route PRN Reason Start Time Stop Time Status Last Admin Dose Admin Sertraline HCl (Zoloft) 75 mg DAILY PO 03/19/21 09:00 03/19/21 08:49 Olanzapine (ZyPREXA ZYDIS) 2.5 mg PRN Q2HR PRN PO PSYCHOSIS 03/19/21 20:15 03/19/21 21:43 I have reviewed the current psychotropics carefully including drug interactions. Risk benefit ratio favors no change other than as noted in my dictated progress note. Diagnosis: Problems: (1) Major depressive disorder with psychotic features (2) Intellectual disability (3) Anxiety disorder, unspecified (4) Impulse control disorder, unspecified GAMALIEL MALLOY MD Mar 19, 2021 22:15
[2021-03-20] MEDS: LEVOTHYROXINE 50 MCG TABLET PO SCH (05:02)
[2021-03-20 06:19] VITALS: BP 123/74
--- NOTE | 2021-03-20 06:31 | PDOC ---
Exam Note: Brooks Note: This note is a late entry for 03/18/2021 covers elements not covered in my initial note. Subjective: The patient was seen individually in the evening of 03/18/2021 with Marissa NEWMAN, discussed and reviewed the chart. The patient slept 7-1/2 hours previous night. She propels herself in the wheelchair. She is extremely loud, disruptive, using profanities at nursing aids. Meds are to be given crushed and she takes them if the wrapper is open in front of her. Review of Systems: Ambulation impaired in wheelchair. No CV, , pulmonary, eye, ENT system symptoms on review. Reliability poor. Mental Status Exam: The patient is reasonably oriented. Insight and judgment, recent and remote memory, attention and concentration, fund of knowledge is poor consistent with her diagnoses. Laboratory Data: Reviewed. Impression: Major depressive disorder with psychotic features. Anxiety disorder unspecified. Impulse control disorder unspecified. Intellectual disability. Plan: Continue psychotropics from initial note. Increase Zoloft from 50 mg a day to 75 mg a day. Dilantin level will be repeated on 03/19. Assessment: Vital Signs/I&O: Vital Signs Date Time Temp Pulse Resp B/P (MAP) Pulse Ox O2 Delivery O2 Flow Rate FiO2 03/20/21 06:19 97.6 81 16 123/74 (90) 97 03/19/21 06:37 Room Air I & O 03/19/21 03/19/21 03/20/21 15:00 23:00 07:00 Intake Total 240 ml 240 ml Balance 240 ml 240 ml Labs: Laboratory Tests Test 03/20/21 05:48 Phenytoin (Dilantin) Level 22.0 mcg/mL (10.0-20.0) H Phenytoin Last Dose Date 03/19/2021 Phenytoin Last Dose Time 2100 Current Medications: Meds: Laboratory Tests Test 03/20/21 05:48 Phenytoin (Dilantin) Level 22.0 mcg/mL Phenytoin Last Dose Date 03/19/2021 Phenytoin Last Dose Time 2100 Current Medications Medications (Trade) Dose Ordered Sig/Kassidy Route PRN Reason Start Time Stop Time Status Last Admin Dose Admin Acetaminophen (Tylenol) 650 mg PRN Q6HRS PRN PO MILD PAIN / TEMP > 100.3'F 03/16/21 15:45 Multi-Ingredient Ointment (Analgesic [place]) 1 belinda PRN QID PRN TP MUSCLE PAIN 03/16/21 15:45 Al Hydroxide/Mg Hydroxide (Mylanta Plus Xs) 15 ml PRN AFTMEALHC PRN PO DYSPEPSIA 03/16/21 15:45 Magnesium Hydroxide (Milk Of Magnesia) 2,400 mg PRN QHS PRN PO CONSTIPATION 03/16/21 15:45 Acetaminophen (Tylenol) 650 mg PRN Q6HRS PRN PO pain or fever 03/16/21 16:00 UNV Aspirin (Aspirin Chewable) 81 mg DAILY PO 03/17/21 09:00 03/19/21 08:48 Levothyroxine Sodium (Synthroid) 50 mcg DAILY06 PO 03/17/21 06:00 03/20/21 05:02 Al Hydroxide/Mg Hydroxide (Mylanta Plus Xs) 15 ml PRN AFTMEALHC PRN PO DYSPEPSIA 03/16/21 16:00 UNV Magnesium Hydroxide (Milk Of Magnesia) 2,400 mg PRN QHS PRN PO CONSTIPATION 03/16/21 16:00 UNV Metolazone (Zaroxolyn) 5 mg QMWF@0900 PO 03/18/21 09:00 03/18/21 08:31 Mirtazapine (Remeron) 7.5 mg QHS PO 03/16/21 21:00 03/19/21 19:45 Phenytoin Sodium (Dilantin) 300 mg QHS PO 03/16/21 21:00 03/19/21 19:45 Potassium Chloride (Klor-Con) 20 meq BID PO 03/16/21 21:00 03/19/21 08:49 Sennosides (Senna) 8.6 mg BID PO 03/16/21 21:00 03/19/21 08:49 Non-Formulary Medication (Methyl Salicylate/ Menthol (Analgesic [place])) 1 belinda PRN QID PRN TP MUSCLE PAIN 03/16/21 16:00 UNV Multivitamins/ Calcium (Thera-M Plus) 1 tab DAILY PO 03/17/21 09:00 03/19/21 08:48 Polyethylene Glycol (miraLAX) 17 gm DAILY PO 03/17/21 09:00 03/19/21 08:48 Vitamin D (Vitamin D3) 50,000 unit WEEKLY PO 03/23/21 09:00 Cetirizine HCl (ZyrTEC) 10 mg DAILY PO 03/17/21 09:00 03/19/21 08:48 Sertraline HCl (Zoloft) 50 mg DAILY PO 03/17/21 09:00 03/18/21 18:34 DC 03/18/21 08:31 Denosumab (Prolia) 60 mg QMONTH SQ 04/15/21 09:00 UNV Phenytoin Sodium (Dilantin) 100 mg BID92 PO 03/17/21 09:00 Cancel Tramadol HCl (Ultram) 50 mg PRN BID PRN PO pain 03/16/21 16:15 Trazodone HCl (Desyrel) 50 mg QHS PO 03/16/21 21:00 03/19/21 19:45 Ascorbic Acid (Vitamin C) 1,000 mg DAILY PO 03/17/21 09:00 03/19/21 08:48 Melatonin (Melatonin) 6 mg HS PO 03/16/21 21:00 03/19/21 19:45 Zinc Sulfate (Orazinc) 220 mg DAILY PO 03/17/21 09:00 03/19/21 08:48 Sertraline HCl (Zoloft) 75 mg DAILY PO 03/19/21 09:00 03/19/21 08:49 Olanzapine (ZyPREXA ZYDIS) 2.5 mg PRN Q2HR PRN PO PSYCHOSIS 03/19/21 20:15 03/19/21 21:43 Current Medications Medications (Trade) Dose Ordered Sig/Kassidy Route PRN Reason Start Time Stop Time Status Last Admin Dose Admin Sertraline HCl (Zoloft) 75 mg DAILY PO 03/19/21 09:00 03/19/21 08:49 Olanzapine (ZyPREXA ZYDIS) 2.5 mg PRN Q2HR PRN PO PSYCHOSIS 03/19/21 20:15 03/19/21 21:43 I have reviewed the current psychotropics carefully including drug interactions. Risk benefit ratio favors no change other than as noted in my dictated progress note. Diagnosis: Problems: (1) Impulse control disorder, unspecified (2) Anxiety disorder, unspecified (3) Major depressive disorder with psychotic features (4) Intellectual disability GAMALIEL MALLOY MD Mar 20, 2021 06:31
--- NOTE | 2021-03-20 06:45 | PDOC ---
Exam Note: Brooks Note: This note is a late entry for 03/19/2021 covers elements not covered in my initial note. Subjective: The patient was reviewed at treatment team meeting individually in the morning on 03/19/2021 with Katty Mathew (community mental health social worker), Radha, activity therapy and Marissa NEWMAN, discussed and reviewed the chart. The patient slept 5-1/2 hours previous night. She has been yelling. Appetite is poor. Her Dilantin level will be checked. Consider Depakote as mood stabilizer. Review of Systems: Ambulation impaired in wheelchair. She was pushing herself up and down the hallway as I met with her. No CV, , pulmonary, eye, ENT system symptoms on review. Reliability poor. Mental Status Exam: The patient is reasonably oriented. Insight and judgment, recent and remote memory, attention and concentration, fund of knowledge is poor consistent with her diagnoses. Laboratory Data: Reviewed. Impression: Major depressive disorder with psychotic features. Anxiety disorder unspecified. Impulse control disorder unspecified. Intellectual disability. Plan: Continue psychotropics from initial note. Once the Dilantin level is therapeutic we may consider adding Depakote as a mood stabilizer. Maintain trazodone, Zoloft, melatonin, Remeron unchanged for now. Assessment: Vital Signs/I&O: Vital Signs Date Time Temp Pulse Resp B/P (MAP) Pulse Ox O2 Delivery O2 Flow Rate FiO2 03/20/21 06:19 97.6 81 16 123/74 (90) 97 03/19/21 06:37 Room Air I & O 03/19/21 03/19/21 03/20/21 15:00 23:00 07:00 Intake Total 240 ml 240 ml Balance 240 ml 240 ml Labs: Laboratory Tests Test 03/20/21 05:48 Phenytoin (Dilantin) Level 22.0 mcg/mL (10.0-20.0) H Phenytoin Last Dose Date 03/19/2021 Phenytoin Last Dose Time 2100 Current Medications: Meds: Laboratory Tests Test 03/20/21 05:48 Phenytoin (Dilantin) Level 22.0 mcg/mL Phenytoin Last Dose Date 03/19/2021 Phenytoin Last Dose Time 2100 Current Medications Medications (Trade) Dose Ordered Sig/Kassidy Route PRN Reason Start Time Stop Time Status Last Admin Dose Admin Acetaminophen (Tylenol) 650 mg PRN Q6HRS PRN PO MILD PAIN / TEMP > 100.3'F 03/16/21 15:45 Multi-Ingredient Ointment (Analgesic [place]) 1 belinda PRN QID PRN TP MUSCLE PAIN 03/16/21 15:45 Al Hydroxide/Mg Hydroxide (Mylanta Plus Xs) 15 ml PRN AFTMEALHC PRN PO DYSPEPSIA 03/16/21 15:45 Magnesium Hydroxide (Milk Of Magnesia) 2,400 mg PRN QHS PRN PO CONSTIPATION 03/16/21 15:45 Acetaminophen (Tylenol) 650 mg PRN Q6HRS PRN PO pain or fever 03/16/21 16:00 UNV Aspirin (Aspirin Chewable) 81 mg DAILY PO 03/17/21 09:00 03/19/21 08:48 Levothyroxine Sodium (Synthroid) 50 mcg DAILY06 PO 03/17/21 06:00 03/20/21 05:02 Al Hydroxide/Mg Hydroxide (Mylanta Plus Xs) 15 ml PRN AFTMEALHC PRN PO DYSPEPSIA 03/16/21 16:00 UNV Magnesium Hydroxide (Milk Of Magnesia) 2,400 mg PRN QHS PRN PO CONSTIPATION 03/16/21 16:00 UNV Metolazone (Zaroxolyn) 5 mg QMWF@0900 PO 03/18/21 09:00 03/18/21 08:31 Mirtazapine (Remeron) 7.5 mg QHS PO 03/16/21 21:00 03/19/21 19:45 Phenytoin Sodium (Dilantin) 300 mg QHS PO 03/16/21 21:00 03/19/21 19:45 Potassium Chloride (Klor-Con) 20 meq BID PO 03/16/21 21:00 03/19/21 08:49 Sennosides (Senna) 8.6 mg BID PO 03/16/21 21:00 03/19/21 08:49 Non-Formulary Medication (Methyl Salicylate/ Menthol (Analgesic [place])) 1 belinda PRN QID PRN TP MUSCLE PAIN 03/16/21 16:00 UNV Multivitamins/ Calcium (Thera-M Plus) 1 tab DAILY PO 03/17/21 09:00 03/19/21 08:48 Polyethylene Glycol (miraLAX) 17 gm DAILY PO 03/17/21 09:00 03/19/21 08:48 Vitamin D (Vitamin D3) 50,000 unit WEEKLY PO 03/23/21 09:00 Cetirizine HCl (ZyrTEC) 10 mg DAILY PO 03/17/21 09:00 03/19/21 08:48 Sertraline HCl (Zoloft) 50 mg DAILY PO 03/17/21 09:00 03/18/21 18:34 DC 03/18/21 08:31 Denosumab (Prolia) 60 mg QMONTH SQ 04/15/21 09:00 UNV Phenytoin Sodium (Dilantin) 100 mg BID92 PO 03/17/21 09:00 Cancel Tramadol HCl (Ultram) 50 mg PRN BID PRN PO pain 03/16/21 16:15 Trazodone HCl (Desyrel) 50 mg QHS PO 03/16/21 21:00 03/19/21 19:45 Ascorbic Acid (Vitamin C) 1,000 mg DAILY PO 03/17/21 09:00 03/19/21 08:48 Melatonin (Melatonin) 6 mg HS PO 03/16/21 21:00 03/19/21 19:45 Zinc Sulfate (Orazinc) 220 mg DAILY PO 03/17/21 09:00 03/19/21 08:48 Sertraline HCl (Zoloft) 75 mg DAILY PO 03/19/21 09:00 03/19/21 08:49 Olanzapine (ZyPREXA ZYDIS) 2.5 mg PRN Q2HR PRN PO PSYCHOSIS 03/19/21 20:15 03/19/21 21:43 Current Medications Medications (Trade) Dose Ordered Sig/Kassidy Route PRN Reason Start Time Stop Time Status Last Admin Dose Admin Sertraline HCl (Zoloft) 75 mg DAILY PO 03/19/21 09:00 03/19/21 08:49 Olanzapine (ZyPREXA ZYDIS) 2.5 mg PRN Q2HR PRN PO PSYCHOSIS 03/19/21 20:15 03/19/21 21:43 I have reviewed the current psychotropics carefully including drug interactions. Risk benefit ratio favors no change other than as noted in my dictated progress note. Diagnosis: Problems: (1) Major depressive disorder with psychotic features (2) Intellectual disability (3) Impulse control disorder, unspecified (4) Anxiety disorder, unspecified GAMALIEL MALLOY MD Mar 20, 2021 06:45
[2021-03-20] MEDS: ASCORBIC ACID 500 MG TABLET PO SCH (09:00)
[2021-03-20] MEDS: SENNOSIDES 8.6 MG TABLET PO SCH ×3 (09:00→21:00)
[2021-03-20] MEDS: MULTIVITAMIN with MINERAL TABLET. PO SCH (09:00)
[2021-03-20] MEDS: CETIRIZINE HCL 10 MG TABLET PO SCH (09:00)
[2021-03-20] MEDS: ASPIRIN CHEWABLE 81 MG TABLET. PO SCH (09:00)
[2021-03-20] MEDS: SERTRALINE 50 MG TABLET. PO SCH (09:00)
[2021-03-20] MEDS: POLYETHYLENE GLYCOL 3350 17 GM PACKET. PO SCH (09:00)
[2021-03-20] MEDS: POTASSIUM CHLORIDE 20 MEQ TABLET.ER. PO SCH ×3 (09:00→21:00)
[2021-03-20] MEDS: metOLazone 5 MG TABLET PO SCH (09:00)
[2021-03-20] MEDS: ZINC SULFATE 220 MG CAPSULE. PO SCH (09:00)
--- NOTE | 2021-03-20 14:09 | NUR ---
Pt slept through breakfast and refused to get up to eat. When nursing went in this morning she was refusing to open her eyes or open her mouth to even attempt to take her medications. Pt started to swing and attempt to hit staff, but was unsuccessful. Pt had to be given medications via oral syringe. The only medications that were able to be administered this morning were zoloft, aspirin, and metolazone. Staff got her up and out of bed before lunch and into her wheel chair. Pt has been up wandering the halls and in the day room.
--- NOTE | 2021-03-20 14:14 | NUR ---
Pt has been calm, cooperative, and medication compliant. Pt has been sitting at the front of the mathews visiting with peers for most of the morning and afternoon. She has expressed pain in her left ankle where she does have a hairline fracture; she was administered Tylenol at 0902 and 1342. Pt stated that the medication seems to be helpful. Pt has not expressed any SI or self harm statements at this time. Addendum: 03/20/21 at 1506 by PARTH MOSLEY LPN LPN WRONG PATIENT NOTE--PLEASE DISREGARD.
[2021-03-20 16:05] VITALS: BP 143/74
[2021-03-20] MEDS: PHENYTOIN SODIUM EXTENDED 100 MG CAPSULE PO SCH (20:21)
[2021-03-20] MEDS: MELATONIN 3 MG TABLET PO SCH (20:22)
[2021-03-20] MEDS: MIRTAZAPINE 7.5 MG TABLET. PO SCH (20:23)
[2021-03-20] MEDS: traMADol 50 MG TABLET PO PRN (20:23)
[2021-03-20] MEDS: traZODone 50 MG TABLET. PO SCH (20:24)
--- NOTE | 2021-03-20 21:59 | PDOC ---
Exam Note: Brooks Note: Please also refer to the separate dictated note~for this date of service dictated separately.~Patient seen individually. Discussed the patient with Nursing staff reviewed the chart.~Reviewed interim history and current functioning. Reviewed vital signs,~Labs/ Radiology~and current medications noted below. Continue current treatment with the changes noted in the dictated addendum note Assessment: Vital Signs/I&O: Vital Signs Date Time Temp Pulse Resp B/P (MAP) Pulse Ox O2 Delivery O2 Flow Rate FiO2 03/20/21 20:23 94 03/20/21 16:05 98.0 86 19 143/74 (97) 03/19/21 06:37 Room Air I & O 03/19/21 03/19/21 03/20/21 15:00 23:00 07:00 Intake Total 240 ml 240 ml Balance 240 ml 240 ml Labs: Laboratory Tests Test 03/20/21 05:48 Phenytoin (Dilantin) Level 22.0 mcg/mL (10.0-20.0) H Phenytoin Last Dose Date 03/19/2021 Phenytoin Last Dose Time 2100 Current Medications: Meds: Laboratory Tests Test 03/20/21 05:48 Phenytoin (Dilantin) Level 22.0 mcg/mL Phenytoin Last Dose Date 03/19/2021 Phenytoin Last Dose Time 2100 Current Medications Medications (Trade) Dose Ordered Sig/Kassidy Route PRN Reason Start Time Stop Time Status Last Admin Dose Admin Acetaminophen (Tylenol) 650 mg PRN Q6HRS PRN PO MILD PAIN / TEMP > 100.3'F 03/16/21 15:45 Multi-Ingredient Ointment (Analgesic [place]) 1 belinda PRN QID PRN TP MUSCLE PAIN 03/16/21 15:45 Al Hydroxide/Mg Hydroxide (Mylanta Plus Xs) 15 ml PRN AFTMEALHC PRN PO DYSPEPSIA 03/16/21 15:45 Magnesium Hydroxide (Milk Of Magnesia) 2,400 mg PRN QHS PRN PO CONSTIPATION 03/16/21 15:45 Acetaminophen (Tylenol) 650 mg PRN Q6HRS PRN PO pain or fever 03/16/21 16:00 UNV Aspirin (Aspirin Chewable) 81 mg DAILY PO 03/17/21 09:00 03/20/21 09:00 Levothyroxine Sodium (Synthroid) 50 mcg DAILY06 PO 03/17/21 06:00 03/20/21 05:02 Al Hydroxide/Mg Hydroxide (Mylanta Plus Xs) 15 ml PRN AFTMEALHC PRN PO DYSPEPSIA 03/16/21 16:00 UNV Magnesium Hydroxide (Milk Of Magnesia) 2,400 mg PRN QHS PRN PO CONSTIPATION 03/16/21 16:00 UNV Metolazone (Zaroxolyn) 5 mg QMWF@0900 PO 03/18/21 09:00 03/20/21 09:00 Mirtazapine (Remeron) 7.5 mg QHS PO 03/16/21 21:00 03/20/21 20:23 Phenytoin Sodium (Dilantin) 300 mg QHS PO 03/16/21 21:00 03/20/21 20:21 Potassium Chloride (Klor-Con) 20 meq BID PO 03/16/21 21:00 03/19/21 08:49 Sennosides (Senna) 8.6 mg BID PO 03/16/21 21:00 03/19/21 08:49 Non-Formulary Medication (Methyl Salicylate/ Menthol (Analgesic [place])) 1 belinda PRN QID PRN TP MUSCLE PAIN 03/16/21 16:00 UNV Multivitamins/ Calcium (Thera-M Plus) 1 tab DAILY PO 03/17/21 09:00 03/19/21 08:48 Polyethylene Glycol (miraLAX) 17 gm DAILY PO 03/17/21 09:00 03/19/21 08:48 Vitamin D (Vitamin D3) 50,000 unit WEEKLY PO 03/23/21 09:00 Cetirizine HCl (ZyrTEC) 10 mg DAILY PO 03/17/21 09:00 03/19/21 08:48 Sertraline HCl (Zoloft) 50 mg DAILY PO 03/17/21 09:00 03/18/21 18:34 DC 03/18/21 08:31 Denosumab (Prolia) 60 mg QMONTH SQ 04/15/21 09:00 UNV Phenytoin Sodium (Dilantin) 100 mg BID92 PO 03/17/21 09:00 Cancel Tramadol HCl (Ultram) 50 mg PRN BID PRN PO MOD-SEV PAIN 03/16/21 16:15 03/20/21 20:23 Trazodone HCl (Desyrel) 50 mg QHS PO 03/16/21 21:00 03/20/21 20:24 Ascorbic Acid (Vitamin C) 1,000 mg DAILY PO 03/17/21 09:00 03/19/21 08:48 Melatonin (Melatonin) 6 mg HS PO 03/16/21 21:00 03/20/21 20:22 Zinc Sulfate (Orazinc) 220 mg DAILY PO 03/17/21 09:00 03/19/21 08:48 Sertraline HCl (Zoloft) 75 mg DAILY PO 03/19/21 09:00 03/20/21 09:00 Olanzapine (ZyPREXA ZYDIS) 2.5 mg PRN Q2HR PRN PO PSYCHOSIS 03/19/21 20:15 03/20/21 20:23 I have reviewed the current psychotropics carefully including drug interactions. Risk benefit ratio favors no change other than as noted in my dictated progress note. Diagnosis: Problems: (1) Impulse control disorder, unspecified (2) Anxiety disorder, unspecified (3) Dementia, vascular, with depression (4) Dementia, vascular, with delusions (5) Dementia in Alzheimer's disease with depression (6) Dementia in Alzheimer's disease with delusions (7) Major neurocognitive disorder, due to vascular disease, with behavioral disturbance, mild (8) Major depressive disorder with psychotic features (9) Intellectual disability GAMALIEL MALLOY MD Mar 20, 2021 21:59
--- NOTE | 2021-03-20 23:15 | NUR ---
Patient is located in the hallway on assumption of care, sitting in her wheelchair. She is labile, smiling one minute and being irritable the next. Yelling out repeatedly and mooing like a cow. This nurse approached her and asked if she was willing to take her medications whole, and she shouted "No" and started shaking her head. HS Trazodone, Remeron, Dilantin, Melatonin and PRN Zydis and Tramadol crushed and mixed with small amount of water in a syringe. Patient resistive to taking meds, spitting a lot of it out. Unclear how much medication she received. She was compliant with HS care and appears to be sleeping comfortably at present time. Will continue to monitor.
[2021-03-21] MEDS: LEVOTHYROXINE 50 MCG TABLET PO SCH (05:40)
[2021-03-21 06:13] VITALS: BP 152/57
[2021-03-21] MEDS: SENNOSIDES 8.6 MG TABLET PO SCH ×2 (09:00→19:29)
[2021-03-21] MEDS: ASPIRIN CHEWABLE 81 MG TABLET. PO SCH (09:00)
[2021-03-21] MEDS: SERTRALINE 50 MG TABLET. PO SCH (09:00)
[2021-03-21] MEDS: POTASSIUM CHLORIDE 20 MEQ TABLET.ER. PO SCH ×2 (09:00→19:28)
[2021-03-21] MEDS: ZINC SULFATE 220 MG CAPSULE. PO SCH (09:00)
[2021-03-21] MEDS: POLYETHYLENE GLYCOL 3350 17 GM PACKET. PO SCH (09:00)
[2021-03-21] MEDS: MULTIVITAMIN with MINERAL TABLET. PO SCH (09:00)
[2021-03-21] MEDS: CETIRIZINE HCL 10 MG TABLET PO SCH (09:00)
[2021-03-21] MEDS: ASCORBIC ACID 500 MG TABLET PO SCH (09:00)
[2021-03-21] MEDS: traMADol 50 MG TABLET PO PRN ×2 (09:35→19:50)
[2021-03-21 10:23] LABS: PHENY 22.2 mcg/mL (10.0-20.0)
[2021-03-21 16:04] VITALS: BP 98/74
--- NOTE | 2021-03-21 17:08 | NUR ---
Pt has wandered the unit throughout the day and is still refusing to eat. She has not eaten any of her meals today or drank any liquids. Staff has tried numerous items that pts sister has recommended for pt to eat and pt will become combative and start to scream and yell when we continue to offer options. Pt refused medications--so nursing administered them sublingually.
[2021-03-21] MEDS: PHENYTOIN SODIUM EXTENDED 100 MG CAPSULE PO SCH (19:28)
[2021-03-21] MEDS: MIRTAZAPINE 7.5 MG TABLET. PO SCH (19:50)
[2021-03-21] MEDS: traZODone 50 MG TABLET. PO SCH (19:50)
[2021-03-21] MEDS: MELATONIN 3 MG TABLET PO SCH (19:51)
--- NOTE | 2021-03-21 23:15 | NUR ---
Patient is located in the hallway on assumption of care, sitting in her wheelchair. She is mostly quiet, yelling out intermittently. She again refused assessments and medications. Patient appeared to be experiencing discomfort, d/t grunting and facial expressions. PRN Tramadol given with HS Trazodone, Melatonin and Remeron via oral syringe. Patient spit some of it out, unclear how much medication she received. Dilantin levels continue to rise despite dose being lowered and medication non-compliance. Per Dr. Diaz, HS dose of Dilantin held. Consult placed with Dr. Tellez and labs reordered for tomorrow morning. Patient appears to be sleeping comfortably at present time. Will continue to monitor.
[2021-03-22] MEDS: LEVOTHYROXINE 50 MCG TABLET PO SCH (06:00)
[2021-03-22 06:34] VITALS: BP 158/78
[2021-03-22] MEDS: POTASSIUM CHLORIDE 20 MEQ TABLET.ER. PO SCH ×2 (08:45→20:05)
[2021-03-22] MEDS: ASPIRIN CHEWABLE 81 MG TABLET. PO SCH (08:45)
[2021-03-22] MEDS: CETIRIZINE HCL 10 MG TABLET PO SCH (08:46)
[2021-03-22] MEDS: ASCORBIC ACID 500 MG TABLET PO SCH (08:46)
[2021-03-22] MEDS: SERTRALINE 50 MG TABLET. PO SCH (08:46)
[2021-03-22] MEDS: POLYETHYLENE GLYCOL 3350 17 GM PACKET. PO SCH (08:46)
[2021-03-22] MEDS: MULTIVITAMIN with MINERAL TABLET. PO SCH (08:46)
[2021-03-22] MEDS: ZINC SULFATE 220 MG CAPSULE. PO SCH (08:46)
[2021-03-22] MEDS: SENNOSIDES 8.6 MG TABLET PO SCH ×2 (08:46→20:06)
[2021-03-22] MEDS: traMADol 50 MG TABLET PO PRN ×2 (08:51→20:06)
[2021-03-22 09:53] LABS: BASO % 1 % (0-3); EOS # 0.1 x10^3/uL (0.0-0.7); EOS % 2 % (0-3); HEMATOCRIT 37.6 % (36.0-47.0); HEMOGLOBIN 12.4 g/dL (12.0-15.5); LYMPH # 1.3 x10^3/uL (1.0-4.8); LYMPH % 25 % (24-48); MEAN CORPUSCULAR HEMOGLOBIN 33 pg (25-35); MEAN CORPUSCULAR HGB CONC 33 g/dL (31-37); MEAN CORPUSCULAR VOLUME 99 fL (79-100); MONO # 0.3 x10^3/uL (0.0-1.1); MONO % 7 % (0-9); NEUT # 3.4 x10^3uL (1.8-7.7); NEUT % 65 % (31-73); PLATELET COUNT 279 x10^3/uL (140-400); RED CELL DISTRIBUTION WIDTH 14.4 % (11.5-14.5); WHITE BLOOD COUNT 5.1 x10^3/uL (4.0-11.0)
[2021-03-22 10:00] LABS: ALBUMIN 3.4 g/dL (3.4-5.0); ALBUMIN/GLOBULIN RATIO 0.9 (1.0-1.7); ALK PHOS 115 U/L (46-116); ALT (SGPT) 39 U/L (14-59); ANION GAP 9 (6-14); AST (SGOT) 24 U/L (15-37); BLOOD UREA NITROGEN 22 mg/dL (7-20); BUN/CREATININE RATIO 44 (6-20); CALCIUM 9.2 mg/dL (8.5-10.1); CARBON DIOXIDE 29 mmol/L (21-32); CHLORIDE 102 mmol/L (98-107); CREATININE 0.5 mg/dL (0.6-1.0); GFR 122.3; GLUCOSE 109 mg/dL (70-99); PHENY 17.6 mcg/mL (10.0-20.0); POTASSIUM 3.9 mmol/L (3.5-5.1); SODIUM 140 mmol/L (136-145); TOTAL BILIRUBIN 0.2 mg/dL (0.2-1.0); TOTAL PROTEIN 7.4 g/dL (6.4-8.2)
--- NOTE | 2021-03-22 12:01 | PDOC ---
Exam Note: Brooks Note: This note is a late entry for 03/20/2021 covers elements not covered in my initial note. Subjective: The patient was seen individually in the evening of 03/20/2021 with Rowena NEWMAN, discussed and reviewed the chart. The patient slept 6-1/2 hours previous night. Overall she has been awful per nursing report. She has been refusing cares, has been needy, anxious, yelling. Medications had to be syringed. Dilantin level is 22 despite reduction from 500 mg down to 300 mg a day. We will repeat a level in the morning. Review of Systems: Ambulation impaired in wheelchair. No CV, , pulmonary, eye, ENT system symptoms on review. Mental Status Exam: The patient is oriented to herself. Insight and judgment, recent and remote memory, attention and concentration, fund of knowledge is poor consistent with her diagnoses. Laboratory Data: Reviewed. Impression: Major depressive disorder with psychotic features. Anxiety disorder unspecified. Impulse control disorder unspecified. Intellectual disability. Plan: Continue current psychotropics. Repeat Dilantin level. Maintain trazodone, Remeron, Zyprexa p.r.n. Consider Depakote as a mood stabilizer. Please be noted Dr. Mendez will cover for me from 03/21 through 04/01/2021. Assessment: Vital Signs/I&O: Vital Signs Date Time Temp Pulse Resp B/P (MAP) Pulse Ox O2 Delivery O2 Flow Rate FiO2 03/22/21 09:38 18 Room Air 03/22/21 06:34 96.7 71 158/78 (104) 99 I & O 03/21/21 03/21/21 03/22/21 15:00 23:00 07:00 Intake Total 0 ml 120 ml Balance 0 ml 120 ml Labs: Laboratory Tests Test 03/22/21 09:25 White Blood Count 5.1 x10^3/uL (4.0-11.0) Red Blood Count 3.80 x10^6/uL (3.50-5.40) Hemoglobin 12.4 g/dL (12.0-15.5) Hematocrit 37.6 % (36.0-47.0) Mean Corpuscular Volume 99 fL (79-100) Mean Corpuscular Hemoglobin 33 pg (25-35) Mean Corpuscular Hemoglobin Concent 33 g/dL (31-37) Red Cell Distribution Width 14.4 % (11.5-14.5) Platelet Count 279 x10^3/uL (140-400) Neutrophils (%) (Auto) 65 % (31-73) Lymphocytes (%) (Auto) 25 % (24-48) Monocytes (%) (Auto) 7 % (0-9) Eosinophils (%) (Auto) 2 % (0-3) Basophils (%) (Auto) 1 % (0-3) Neutrophils # (Auto) 3.4 x10^3uL (1.8-7.7) Lymphocytes # (Auto) 1.3 x10^3/uL (1.0-4.8) Monocytes # (Auto) 0.3 x10^3/uL (0.0-1.1) Eosinophils # (Auto) 0.1 x10^3/uL (0.0-0.7) Basophils # (Auto) 0.0 x10^3/uL (0.0-0.2) Sodium Level 140 mmol/L (136-145) Potassium Level 3.9 mmol/L (3.5-5.1) Chloride Level 102 mmol/L (98-107) Carbon Dioxide Level 29 mmol/L (21-32) Anion Gap 9 (6-14) Blood Urea Nitrogen 22 mg/dL (7-20) H Creatinine 0.5 mg/dL (0.6-1.0) L Estimated GFR (Cockcroft-Gault) 122.3 BUN/Creatinine Ratio 44 (6-20) H Glucose Level 109 mg/dL (70-99) H Calcium Level 9.2 mg/dL (8.5-10.1) Total Bilirubin 0.2 mg/dL (0.2-1.0) Aspartate Amino Transferase (AST) 24 U/L (15-37) Alanine Aminotransferase (ALT) 39 U/L (14-59) Alkaline Phosphatase 115 U/L (46-116) Total Protein 7.4 g/dL (6.4-8.2) Albumin 3.4 g/dL (3.4-5.0) Albumin/Globulin Ratio 0.9 (1.0-1.7) L Phenytoin (Dilantin) Level 17.6 mcg/mL (10.0-20.0) Phenytoin Last Dose Date 9/17/21 Phenytoin Last Dose Time 2100 Current Medications: Meds: Laboratory Tests Test 03/22/21 09:25 White Blood Count 5.1 x10^3/uL Red Blood Count 3.80 x10^6/uL Hemoglobin 12.4 g/dL Hematocrit 37.6 % Mean Corpuscular Volume 99 fL Mean Corpuscular Hemoglobin 33 pg Mean Corpuscular Hemoglobin Concent 33 g/dL Red Cell Distribution Width 14.4 % Platelet Count 279 x10^3/uL Neutrophils (%) (Auto) 65 % Lymphocytes (%) (Auto) 25 % Monocytes (%) (Auto) 7 % Eosinophils (%) (Auto) 2 % Basophils (%) (Auto) 1 % Neutrophils # (Auto) 3.4 x10^3uL Lymphocytes # (Auto) 1.3 x10^3/uL Monocytes # (Auto) 0.3 x10^3/uL Eosinophils # (Auto) 0.1 x10^3/uL Basophils # (Auto) 0.0 x10^3/uL Sodium Level 140 mmol/L Potassium Level 3.9 mmol/L Chloride Level 102 mmol/L Carbon Dioxide Level 29 mmol/L Anion Gap 9 Blood Urea Nitrogen 22 mg/dL Creatinine 0.5 mg/dL Estimated GFR (Cockcroft-Gault) 122.3 BUN/Creatinine Ratio 44 Glucose Level 109 mg/dL Calcium Level 9.2 mg/dL Total Bilirubin 0.2 mg/dL Aspartate Amino Transf (AST/SGOT) 24 U/L Alanine Aminotransferase (ALT/SGPT) 39 U/L Alkaline Phosphatase 115 U/L Total Protein 7.4 g/dL Albumin 3.4 g/dL Albumin/Globulin Ratio 0.9 Phenytoin (Dilantin) Level 17.6 mcg/mL Phenytoin Last Dose Date 03/20/21 Phenytoin Last Dose Time 2100 Current Medications Medications (Trade) Dose Ordered Sig/Kassidy Route PRN Reason Start Time Stop Time Status Last Admin Dose Admin Acetaminophen (Tylenol) 650 mg PRN Q6HRS PRN PO MILD PAIN / TEMP > 100.3'F 03/16/21 15:45 Multi-Ingredient Ointment (Analgesic [place]) 1 belinda PRN QID PRN TP MUSCLE PAIN 03/16/21 15:45 Al Hydroxide/Mg Hydroxide (Mylanta Plus Xs) 15 ml PRN AFTMEALHC PRN PO DYSPEPSIA 03/16/21 15:45 Magnesium Hydroxide (Milk Of Magnesia) 2,400 mg PRN QHS PRN PO CONSTIPATION 03/16/21 15:45 Acetaminophen (Tylenol) 650 mg PRN Q6HRS PRN PO pain or fever 03/16/21 16:00 UNV Aspirin (Aspirin Chewable) 81 mg DAILY PO 03/17/21 09:00 03/22/21 08:45 Levothyroxine Sodium (Synthroid) 50 mcg DAILY06 PO 03/17/21 06:00 03/22/21 06:00 Al Hydroxide/Mg Hydroxide (Mylanta Plus Xs) 15 ml PRN AFTMEALHC PRN PO DYSPEPSIA 03/16/21 16:00 UNV Magnesium Hydroxide (Milk Of Magnesia) 2,400 mg PRN QHS PRN PO CONSTIPATION 03/16/21 16:00 UNV Metolazone (Zaroxolyn) 5 mg QMWF@0900 PO 03/18/21 09:00 03/20/21 09:00 Mirtazapine (Remeron) 7.5 mg QHS PO 03/16/21 21:00 03/21/21 19:50 Phenytoin Sodium (Dilantin) 300 mg QHS PO 03/16/21 21:00 03/20/21 20:21 Potassium Chloride (Klor-Con) 20 meq BID PO 03/16/21 21:00 03/19/21 08:49 Sennosides (Senna) 8.6 mg BID PO 03/16/21 21:00 03/19/21 08:49 Non-Formulary Medication (Methyl Salicylate/ Menthol (Analgesic [place])) 1 belinda PRN QID PRN TP MUSCLE PAIN 03/16/21 16:00 UNV Multivitamins/ Calcium (Thera-M Plus) 1 tab DAILY PO 03/17/21 09:00 03/19/21 08:48 Polyethylene Glycol (miraLAX) 17 gm DAILY PO 03/17/21 09:00 03/19/21 08:48 Vitamin D (Vitamin D3) 50,000 unit WEEKLY PO 03/23/21 09:00 Cetirizine HCl (ZyrTEC) 10 mg DAILY PO 03/17/21 09:00 03/19/21 08:48 Sertraline HCl (Zoloft) 50 mg DAILY PO 03/17/21 09:00 03/18/21 18:34 DC 03/18/21 08:31 Denosumab (Prolia) 60 mg QMONTH SQ 04/15/21 09:00 UNV Phenytoin Sodium (Dilantin) 100 mg BID92 PO 03/17/21 09:00 Cancel Tramadol HCl (Ultram) 50 mg PRN BID PRN PO MOD-SEV PAIN 03/16/21 16:15 03/22/21 08:51 Trazodone HCl (Desyrel) 50 mg QHS PO 03/16/21 21:00 03/21/21 19:50 Ascorbic Acid (Vitamin C) 1,000 mg DAILY PO 03/17/21 09:00 03/19/21 08:48 Melatonin (Melatonin) 6 mg HS PO 03/16/21 21:00 03/21/21 19:51 Zinc Sulfate (Orazinc) 220 mg DAILY PO 03/17/21 09:00 03/19/21 08:48 Sertraline HCl (Zoloft) 75 mg DAILY PO 03/19/21 09:00 03/22/21 08:46 Olanzapine (ZyPREXA ZYDIS) 2.5 mg PRN Q2HR PRN PO PSYCHOSIS 03/19/21 20:15 03/20/21 20:23 I have reviewed the current psychotropics carefully including drug interactions. Risk benefit ratio favors no change other than as noted in my dictated progress note. Diagnosis: Problems: (1) Impulse control disorder, unspecified (2) Anxiety disorder, unspecified (3) Dementia, vascular, with depression (4) Dementia, vascular, with delusions (5) Dementia in Alzheimer's disease with depression (6) Dementia in Alzheimer's disease with delusions (7) Major neurocognitive disorder, due to vascular disease, with behavioral disturbance, mild (8) Major depressive disorder with psychotic features (9) Intellectual disability GAMALIEL MALLOY MD Mar 22, 2021 12:01
--- NOTE | 2021-03-22 12:48 | NUR ---
Pt has been calm and pleasant today. She wandered the unit and hung out in the day room with her peers. She is starting to eat meals at meal time. She ate about 40% of her breakfast and 30% of her lunch, this is a large improvement from days prior. She does continue to not be medication compliant, so her morning medications were given sublingually. She was given Tramadol this morning with her morning medications for pain, which seemed to help, as she is not yelling and moaning nearly as much throughout the day. Pt will continue to be encouraged by staff.
[2021-03-22 15:50] VITALS: BP 92/60
--- NOTE | 2021-03-22 17:51 | NUR ---
Pt's COVID PCR order cancelled d/t pt having recent positive PCR within past 90 days. This nurse contacted Lab to request that they dispose PCR test.
[2021-03-22] MEDS: traZODone 50 MG TABLET. PO SCH (20:06)
[2021-03-22] MEDS: MELATONIN 3 MG TABLET PO SCH (20:07)
[2021-03-22] MEDS: PHENYTOIN SODIUM EXTENDED 100 MG CAPSULE PO SCH (20:07)
[2021-03-22] MEDS: MIRTAZAPINE 7.5 MG TABLET. PO SCH (20:07)
--- NOTE | 2021-03-22 22:46 | PN ---
DATE: 03/21/2021 SUBJECTIVE: The patient was seen today, met with the staff, chart reviewed. Also, covering for Dr. Celeste. This is a late entry for the service date 03/21/2021. Staff reports continued behavior problems, emotional lability, disorganization of thinking, tend to get hyperverbal, constantly hollering ____, refusing medications. OBSERVATION: VITAL SIGNS: Temperature 97.4, blood pressure 152/57, pulse 85, respirations 20, O2 sat 96. GENERAL: Slept about 7 hours last night. The patient's appetite is fair. MEDICATIONS: Include olanzapine 2.5 mg q. 2 hours p.r.n., Zoloft 75 mg daily, melatonin 6 mg at night. Also, on Dilantin 300 mg at night, mirtazapine 7.5 mg at night. The patient is not having any side effects to the medications. LABORATORY DATA: Patient's lab reviewed. Patient's Dilantin level was 17.6. ASSESSMENT: 1. Major depressive disorder with psychotic features. 2. Impulse control disorder. 3. Rule out bipolar disorder, unspecified. 4. Generalized anxiety disorder. PLAN: To continue with the treatment. LENGTH OF STAY: 7-10 days. LORENZO/FILI/ANGI DR: LORENZO/brendan TID: [id number] MTDD
--- NOTE | 2021-03-22 23:23 | NUR ---
Patient is located in the hallway on assumption of care, sitting in her wheelchair. She is mostly quiet, yelling out intermittently. She again refused assessments and medications. Patient appeared to be experiencing discomfort, d/t grunting and facial expressions. PRN Tramadol given with HS meds via oral syringe. Patient appears to be sleeping comfortably at present time. Will continue to monitor.
--- NOTE | 2021-03-22 23:56 | PN ---
DATE: 03/22/2021 SUBJECTIVE: The patient was seen today, met with the staff, chart reviewed. Staff reports the patient is noncommunicative most of the time, slow mentation, having difficulty communicating her needs. The patient continues to be labile, disorganized, yelling out, also refusing her medications. LABORATORY DATA: The patient's lab reviewed. ASSESSMENT: 1. Major depressive disorder with psychotic features. 2. Impulse control disorder, unspecified. 3. Rule out bipolar disorder, unspecified. 4. Generalized anxiety disorder. PLAN: To continue with the treatment. LENGTH OF STAY: Seven to ten days[address]: Parisa TID: [id number]
[2021-03-23] MEDS: LEVOTHYROXINE 50 MCG TABLET PO SCH ×2 (05:13→08:23)
[2021-03-23 06:14] VITALS: BP 138/83
[2021-03-23] MEDS: SERTRALINE 50 MG TABLET. PO SCH (08:23)
[2021-03-23] MEDS: POTASSIUM CHLORIDE 20 MEQ TABLET.ER. PO SCH ×2 (08:23→20:38)
[2021-03-23] MEDS: ASCORBIC ACID 500 MG TABLET PO SCH (08:24)
[2021-03-23] MEDS: CETIRIZINE HCL 10 MG TABLET PO SCH (08:24)
[2021-03-23] MEDS: SENNOSIDES 8.6 MG TABLET PO SCH ×2 (08:24→20:37)
[2021-03-23] MEDS: metOLazone 5 MG TABLET PO SCH (08:24)
[2021-03-23] MEDS: ZINC SULFATE 220 MG CAPSULE. PO SCH (08:24)
[2021-03-23] MEDS: MULTIVITAMIN with MINERAL TABLET. PO SCH (08:24)
[2021-03-23] MEDS: ASPIRIN CHEWABLE 81 MG TABLET. PO SCH (08:25)
[2021-03-23] MEDS: POLYETHYLENE GLYCOL 3350 17 GM PACKET. PO SCH (08:25)
[2021-03-23] MEDS: CHOLECALCIFEROL (VITAMIN D3) 50,000 UNIT CAPSULE PO SCH (08:26)
--- NOTE | 2021-03-23 10:51 | NUR ---
Patient up in wheelchair has wandered the unit most of shift. Patient continues to refuse medications, medications are crushed in put in chocolate pudding and patient refused, medication put in chocolate cake patient refused. Patient continues to yell out at times. Patient offered Ensure and ice cream , but patient refused at this time.
[2021-03-23] MEDS: traZODone 50 MG TABLET. PO SCH (20:37)
[2021-03-23] MEDS: PHENYTOIN SODIUM EXTENDED 100 MG CAPSULE PO SCH (20:37)
[2021-03-23] MEDS: MIRTAZAPINE 7.5 MG TABLET. PO SCH (20:38)
[2021-03-23] MEDS: MELATONIN 3 MG TABLET PO SCH (20:38)
--- NOTE | 2021-03-24 01:07 | NUR ---
Last evening pt wheeled self around the unit and has been cooperative with staff. She took meds whole floated in pudding and followed by juice and tolerated well. Since going to bed she has been sleeping and she has had no behaviors tonight.
[2021-03-24 05:35] VITALS: BP 128/76
[2021-03-24] MEDS: LEVOTHYROXINE 50 MCG TABLET PO SCH (05:43)
[2021-03-24] MEDS: POLYETHYLENE GLYCOL 3350 17 GM PACKET. PO SCH ×2 (08:16→09:00)
[2021-03-24] MEDS: ASPIRIN CHEWABLE 81 MG TABLET. PO SCH ×2 (08:17→09:00)
[2021-03-24] MEDS: ZINC SULFATE 220 MG CAPSULE. PO SCH ×2 (08:18→09:00)
[2021-03-24] MEDS: SENNOSIDES 8.6 MG TABLET PO SCH ×3 (08:18→20:21)
[2021-03-24] MEDS: POTASSIUM CHLORIDE 20 MEQ TABLET.ER. PO SCH ×3 (08:18→20:19)
[2021-03-24] MEDS: ASCORBIC ACID 500 MG TABLET PO SCH ×2 (08:18→09:00)
[2021-03-24] MEDS: SERTRALINE 50 MG TABLET. PO SCH (08:18)
[2021-03-24] MEDS: CETIRIZINE HCL 10 MG TABLET PO SCH ×2 (08:18→09:00)
[2021-03-24] MEDS: MULTIVITAMIN with MINERAL TABLET. PO SCH ×2 (08:18→09:00)
--- NOTE | 2021-03-24 10:34 | NUR ---
Nursing note: Pt in hallway at time of AM med pass and assessment. Pt refused her meds floated in pudding, punching staff arms away from her and spitting the pudding out of her mouth. Zoloft was given sublingually. Pt then began to angrily mumble and grunt at staff. She is propelling herself around the unit pointing at her mouth yelling "Eww! Ewww!" and calling staff names. Will continue to monitor.
[2021-03-24 15:58] VITALS: BP 149/74
[2021-03-24] MEDS: MELATONIN 3 MG TABLET PO SCH (20:20)
[2021-03-24] MEDS: PHENYTOIN SODIUM EXTENDED 100 MG CAPSULE PO SCH (20:20)
[2021-03-24] MEDS: MIRTAZAPINE 7.5 MG TABLET. PO SCH (20:20)
[2021-03-24] MEDS: GABAPENTIN 100 MG CAPSULE. PO SCH (20:20)
[2021-03-24] MEDS: traZODone 50 MG TABLET. PO SCH (20:20)
--- NOTE | 2021-03-25 01:24 | PN ---
DATE: 03/24/2021 SUBJECTIVE: The patient was seen today, met with the staff, chart reviewed. Staff reports increased behavior problems, yelling out a lot, verbal abuse, grunting and refusing medications. The patient also is impulsive and has low frustration tolerance. OBSERVATION: VITAL SIGNS: Temperature 97.3, blood pressure 128/76, pulse 89, respirations 16, O2 sat 95%. GENERAL: Slept about 7 hours last night. The patient's appetite normal. CURRENT MEDICATIONS: Include gabapentin 100 mg 3 times a day, Zoloft 75 mg daily, olanzapine 2.5 mg q. 2 hours p.r.n., melatonin 6 mg at night for sleep, trazodone 50 mg at night for sleep, mirtazapine 7.5 mg at night for sleep. The patient is not having any side effects to medications. ASSESSMENT: 1. Major depressive disorder with psychotic features. 2. Impulse control disorder, unspecified. 3. Generalized anxiety disorder. PLAN: To continue with the treatment. LENGTH OF STAY: 7 to [address]: Parisa TID: [id number]
[2021-03-25] MEDS: LEVOTHYROXINE 50 MCG TABLET PO SCH (05:27)
[2021-03-25 05:42] VITALS: BP 125/90
[2021-03-25 05:47] VITALS: BP 133/78
--- NOTE | 2021-03-25 06:58 | PN ---
DATE: 03/23/2021 The patient was seen on 03/23/2021 and this is the late entry. SUBJECTIVE: The patient was seen today, met with the staff. Chart reviewed and also, I am covering for Dr. Celeste. Staff reports behavior problems, mostly noncommunicative, monosyllabic answers, difficult to redirect, having problems with boundaries, tend to be impulsive, demanding and needy. The patient also tends to be agitated and having difficulty processing information and also not able to communicate her feelings. She is also refusing medications at times. OBSERVATION: VITAL SIGNS: Stable. Temperature 97.7, blood pressure 138/83, pulse 66, respirations 18, O2 sat 94%. Slept about 8 hours last night. The patient's appetite normal. LABORATORY DATA: The patient's lab reviewed. ASSESSMENT: 1. Major depressive disorder with psychotic features. 2. Impulse control disorder, unspecified, rule out bipolar disorder, unspecified. 3. Generalized anxiety disorder. PLAN: To continue with the current treatment plan. LENGTH OF STAY: 7 to 10 days. LORENZO/TOMASZ/ALETA DR: LORENZO/brendan TID: [id number]
[2021-03-25] MEDS: POLYETHYLENE GLYCOL 3350 17 GM PACKET. PO SCH (08:03)
[2021-03-25] MEDS: metOLazone 5 MG TABLET PO SCH (08:03)
[2021-03-25] MEDS: GABAPENTIN 100 MG CAPSULE. PO SCH ×4 (08:03→20:49)
[2021-03-25] MEDS: ASCORBIC ACID 500 MG TABLET PO SCH (08:03)
[2021-03-25] MEDS: SERTRALINE 50 MG TABLET. PO SCH (08:03)
[2021-03-25] MEDS: MULTIVITAMIN with MINERAL TABLET. PO SCH (08:04)
[2021-03-25] MEDS: ASPIRIN CHEWABLE 81 MG TABLET. PO SCH (08:04)
[2021-03-25] MEDS: SENNOSIDES 8.6 MG TABLET PO SCH ×2 (08:04→20:50)
[2021-03-25] MEDS: ZINC SULFATE 220 MG CAPSULE. PO SCH (08:04)
[2021-03-25] MEDS: POTASSIUM CHLORIDE 20 MEQ TABLET.ER. PO SCH ×2 (08:04→20:50)
[2021-03-25] MEDS: CETIRIZINE HCL 10 MG TABLET PO SCH (08:04)
[2021-03-25] MEDS ORDERED: FLU VACC QUAD 21-22 (6MOS+) PF 0.5 ML SYRINGE. VAX IM ONE (09:00)
--- NOTE | 2021-03-25 09:44 | NUR ---
Nursing note: Pt in dining room at time of AM med pass and assessment. She was compliant in feeding herself her meds floated in chocolate pudding. She has been pleasant and cooperative so far this shift. She is currently propelling herself down the mathews. Will continue to monitor.
--- NOTE | 2021-03-25 11:23 | NUR ---
Nursing note: Flu vaccine administered in R deltoid. Will continue to monitor.
--- NOTE | 2021-03-25 15:21 | NUR ---
FIORDALIZA contacted pt sister/DPOA, Fariba, to provide update. Fariba unavailable. VM left and informed that SW would call back later in the week or early next week with another update. FIORDALIZA informed Fariba that if she needed to talk with pt RN before that she was welcome to call main number and ask for pt RN. FIORDALIZA then contacted pt facility and spoke with Monica to provide update. Monica appreciative of call. FIORDALIZA will continue to follow.
[2021-03-25 15:35] VITALS: BP 116/88
[2021-03-25] MEDS: MIRTAZAPINE 7.5 MG TABLET. PO SCH (20:49)
[2021-03-25] MEDS: traZODone 50 MG TABLET. PO SCH (20:49)
[2021-03-25] MEDS: MELATONIN 3 MG TABLET PO SCH (20:49)
[2021-03-25] MEDS: PHENYTOIN SODIUM EXTENDED 100 MG CAPSULE PO SCH (20:50)
--- NOTE | 2021-03-26 01:00 | PN ---
DATE: 03/25/2021 SUBJECTIVE: The patient was seen today, met with the staff. Chart was reviewed. I am also covering for Dr. Celeste. The patient's behavior remains the same, resistive to care, also refusing to take medications at times, and she has a tendency to get angry easily, also exhibiting mood swings. OBSERVATION: VITAL SIGNS: Temperature 98.9, blood pressure 133/78, pulse 75, respirations 16, O2 sat 93%. GENERAL: Slept about 7 hours last night. The patient's appetite normal. LABORATORY DATA: The patient's lab reviewed. CURRENT MEDICATIONS: Include gabapentin 100 mg t.i.d., Zoloft 75 mg daily, melatonin 6 mg at night, trazodone 50 mg at night, mirtazapine 7.5 mg at night. The patient is not having any side effects. ASSESSMENT: 1. Major depressive disorder with psychotic features. 2. Impulse control disorder, unspecified. 3. Rule out bipolar disorder, unspecified. 4. Generalized anxiety disorder. PLAN: Continue with the treatment. LENGTH OF STAY: 7-[address]: Parisa TID: [id number]
[2021-03-26] MEDS: LEVOTHYROXINE 50 MCG TABLET PO SCH (05:56)
[2021-03-26 06:29] VITALS: BP 149/67
[2021-03-26] MEDS: SENNOSIDES 8.6 MG TABLET PO SCH ×2 (08:23→19:50)
[2021-03-26] MEDS: POLYETHYLENE GLYCOL 3350 17 GM PACKET. PO SCH (08:23)
[2021-03-26] MEDS: POTASSIUM CHLORIDE 20 MEQ TABLET.ER. PO SCH ×2 (08:23→19:50)
[2021-03-26] MEDS: ASCORBIC ACID 500 MG TABLET PO SCH (08:24)
[2021-03-26] MEDS: ASPIRIN CHEWABLE 81 MG TABLET. PO SCH (08:24)
[2021-03-26] MEDS: MULTIVITAMIN with MINERAL TABLET. PO SCH (08:24)
[2021-03-26] MEDS: CETIRIZINE HCL 10 MG TABLET PO SCH (08:24)
[2021-03-26] MEDS: GABAPENTIN 100 MG CAPSULE. PO SCH ×3 (08:24→19:51)
[2021-03-26] MEDS: ZINC SULFATE 220 MG CAPSULE. PO SCH (08:24)
[2021-03-26] MEDS: SERTRALINE 50 MG TABLET. PO SCH (08:24)
--- NOTE | 2021-03-26 11:12 | NUR ---
WEEKLY ACTIVITY THERAPY NOTE Date of Admission:03/16/21 Date of AT Assessment: 03/18 Precipitating behaviors that initiated intake and admission: PA towards peers, chasing peers in mathews, yelling & screaming, refusing medications. 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
--- NOTE | 2021-03-26 11:44 | NUR ---
Nursing note: Pt in dining room at time of AM med pass and assessment. She is angry and attempting to punch my arm as I scan her armband. Meds were crushed and mixed with her ensure. Pt drank a little bit of it, but is unknown how much of the medication she actually received. Pt has been propelling herself through the mathews and grunting. Will continue to monitor.
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
[2021-03-26] MEDS: MIRTAZAPINE 7.5 MG TABLET. PO SCH (19:50)
[2021-03-26] MEDS: PHENYTOIN SODIUM EXTENDED 100 MG CAPSULE PO SCH (19:51)
[2021-03-26] MEDS: MELATONIN 3 MG TABLET PO SCH (19:51)
[2021-03-26] MEDS: traZODone 50 MG TABLET. PO SCH (19:51)
--- NOTE | 2021-03-27 00:30 | NUR ---
Nursing Note The patient was located in the hallway this shift for her assessment and medication pass. The patient was resistive with all cares, assessments and medication. The patients medications where crushed in ice cream. The patient was aggressive/combative with HS cares. the patient is currently sleeping in her room.
--- NOTE | 2021-03-27 02:33 | PN ---
DATE: 03/26/2021 SUBJECTIVE: The patient was seen today, met with the staff. Chart was reviewed and also covering for Dr. Celeste. Also discussed her current treatment plan in the treatment review today. Staff reports she has been refusing her medications. She is sleeping about 7 hours last night and her appetite normal. OBSERVATION: VITAL SIGNS: The patient refused vital signs today. CURRENT MEDICATIONS: The patient's current medications include gabapentin 100 mg t.i.d., Zoloft 75 mg daily, melatonin 6 mg at night, trazodone 50 mg at night, mirtazapine 7.5 mg at night. The patient denies of any side effects to medications. ASSESSMENT: 1. Major depressive disorder with psychotic features. 2. Impulse control disorder, unspecified. 3. Rule out bipolar disorder, unspecified. 4. Generalized anxiety disorder. PLAN: To continue with treatment. LENGTH OF STAY: 7-10 days. GUILLE/NEY DR: Parisa TID: [id number]
[2021-03-27] MEDS: LEVOTHYROXINE 50 MCG TABLET PO SCH (06:27)
[2021-03-27] MEDS: SENNOSIDES 8.6 MG TABLET PO SCH ×2 (09:49→19:39)
[2021-03-27] MEDS: MULTIVITAMIN with MINERAL TABLET. PO SCH (09:49)
[2021-03-27] MEDS: ASPIRIN CHEWABLE 81 MG TABLET. PO SCH (09:49)
[2021-03-27] MEDS: ASCORBIC ACID 500 MG TABLET PO SCH (09:50)
[2021-03-27] MEDS: POTASSIUM CHLORIDE 20 MEQ TABLET.ER. PO SCH ×2 (09:50→19:39)
[2021-03-27] MEDS: metOLazone 5 MG TABLET PO SCH (09:50)
[2021-03-27] MEDS: CETIRIZINE HCL 10 MG TABLET PO SCH (09:50)
[2021-03-27] MEDS: SERTRALINE 50 MG TABLET. PO SCH (09:50)
[2021-03-27] MEDS: GABAPENTIN 100 MG CAPSULE. PO SCH ×3 (09:53→19:40)
[2021-03-27] MEDS: POLYETHYLENE GLYCOL 3350 17 GM PACKET. PO SCH (09:53)
[2021-03-27] MEDS: ZINC SULFATE 220 MG CAPSULE. PO SCH (09:54)
[2021-03-27 10:50] VITALS: BP 159/86
[2021-03-27 16:10] VITALS: BP 113/80
--- NOTE | 2021-03-27 16:26 | NUR ---
Patient propels self in wheelchair in hallway. The patients medications where crushed in ice cream. The patient was aggressive/combative with care. Patient encouraged to take fluids and eat. patient began to yell in hallway being resistive with care . Patient given PRN Zyprexa 2.5 mg by mouth. Patient continues to be resistive.
[2021-03-27] MEDS: MELATONIN 3 MG TABLET PO SCH (19:38)
[2021-03-27] MEDS: MIRTAZAPINE 7.5 MG TABLET. PO SCH (19:39)
[2021-03-27] MEDS: traZODone 50 MG TABLET. PO SCH (19:39)
[2021-03-27] MEDS: PHENYTOIN SODIUM EXTENDED 100 MG CAPSULE PO SCH (19:39)
--- NOTE | 2021-03-27 23:54 | NUR ---
Nursing Note The patient was very resistive with medications this shift. The patient refused to take her medications whole or crushed in ice cream. The patient was resistive to all interactions with staff. Eventually after many attempts by this nurse the patient did take her medications in ice cream. THe patient received a shower this shift during which she was resistive. The patient is currently sleeping in her room.
--- NOTE | 2021-03-28 02:12 | PN ---
DATE: 03/27/2021 SUBJECTIVE: The patient was seen today, met with the staff, chart reviewed. She continues to exhibit behavior problems resisted to care, refusing medications and also tend to isolate herself. The patient also exhibits poor impulse control and low frustration tolerance. OBSERVATION: VITAL SIGNS: Temperature 97.6, blood pressure 159/86, pulse 78, respirations 20, O2 sat 97%. GENERAL: Slept about 7 hours last night. The patient's appetite normal. CURRENT MEDICATIONS: The patient's current medications include gabapentin 100 mg 3 times a day, Zoloft 75 mg daily, melatonin 6 mg at night, and trazodone 50 mg at night. She is also on mirtazapine 7.5 mg at night. She denies of any side effects to medications. ASSESSMENT: 1. Major depressive disorder with psychotic features. 2. Impulse control disorder, unspecified. 3. Generalized anxiety disorder. PLAN: Continue with treatment. LENGTH OF STAY: Seven days. AROLDO DR: Parisa TID: [id number]
[2021-03-28] MEDS: LEVOTHYROXINE 50 MCG TABLET PO SCH (05:48)
[2021-03-28 06:29] VITALS: BP 140/58
[2021-03-28] MEDS: MULTIVITAMIN with MINERAL TABLET. PO SCH (08:16)
[2021-03-28] MEDS: CETIRIZINE HCL 10 MG TABLET PO SCH (08:16)
[2021-03-28] MEDS: ASCORBIC ACID 500 MG TABLET PO SCH (08:16)
[2021-03-28] MEDS: ASPIRIN CHEWABLE 81 MG TABLET. PO SCH (08:16)
[2021-03-28] MEDS: ZINC SULFATE 220 MG CAPSULE. PO SCH (08:16)
[2021-03-28] MEDS: SERTRALINE 50 MG TABLET. PO SCH (08:17)
[2021-03-28] MEDS: POLYETHYLENE GLYCOL 3350 17 GM PACKET. PO SCH (08:17)
[2021-03-28] MEDS: GABAPENTIN 100 MG CAPSULE. PO SCH ×3 (08:17→20:42)
[2021-03-28] MEDS: POTASSIUM CHLORIDE 20 MEQ TABLET.ER. PO SCH ×2 (08:17→20:42)
[2021-03-28] MEDS: SENNOSIDES 8.6 MG TABLET PO SCH ×2 (08:18→20:42)
--- NOTE | 2021-03-28 11:36 | NUR ---
Nurse Note: Pt propel self in wheelchair in hallway. Pt. resistive with medication,after many attempts raises her hand at staff but does not hit them. Medication crushed put in chocolate ensure, patient only consumed half and threw in floor. Pt. continues to propel in hallway grunting at times.assist with ADLs.
[2021-03-28 15:42] VITALS: BP 116/64
--- NOTE | 2021-03-28 16:35 | NUR ---
Patient had a cup of ice water and threw it at Tech back. No one was around the patient before or during the time she threw the cup. Patient received prn Zyprexa patient was resitive of medication and medication was given syringe.
[2021-03-28] MEDS: traZODone 50 MG TABLET. PO SCH (20:42)
[2021-03-28] MEDS: MIRTAZAPINE 7.5 MG TABLET. PO SCH (20:42)
[2021-03-28] MEDS: MELATONIN 3 MG TABLET PO SCH (20:42)
[2021-03-28] MEDS: PHENYTOIN SODIUM EXTENDED 100 MG CAPSULE PO SCH (20:42)
--- NOTE | 2021-03-29 01:11 | NUR ---
Nursing Note The patient was located in her room laying in bed for her assessment and medication pass. The patient took her medication crushed in fluid. The patent was alert to name only. The patient is non verbal during interactions mostly grunting and pointing. The patient is currently sleeping in her room.
--- NOTE | 2021-03-29 01:35 | PN ---
DATE: 03/28/2021 SUBJECTIVE: The patient was seen today, met with the staff. Chart was reviewed and also covering for Dr. Celeste. The patient's behavior remains the same, resisted to care, refusing medications and also tend to isolate herself and also problems with the communication and has problems with low frustration tolerance and irritability. OBSERVATION: VITAL SIGNS: Temperature 97.4, blood pressure 116/64, pulse 95, respirations 20, O2 sat 98%. The patient's sleep is fairly good. CURRENT MEDICATIONS: Include gabapentin 100 mg 3 times a day, Zoloft 75 mg daily, melatonin 6 mg at night, and trazodone 50 mg at night. She is also on mirtazapine 7.5 mg at night. She denies of any side effects to medications. ASSESSMENT: 1. Major depressive disorder with psychotic features. 2. Impulse control disorder, unspecified. 3. Generalized anxiety disorder. PLAN: To continue with the treatment. LENGTH OF STAY: Seven days. RUSS DR: Parisa TID: [id number]
[2021-03-29 06:05] VITALS: BP 115/74
[2021-03-29] MEDS: LEVOTHYROXINE 50 MCG TABLET PO SCH (06:09)
[2021-03-29] MEDS: SERTRALINE 50 MG TABLET. PO SCH (08:35)
[2021-03-29] MEDS: SENNOSIDES 8.6 MG TABLET PO SCH ×2 (08:35→19:36)
[2021-03-29] MEDS: ASPIRIN CHEWABLE 81 MG TABLET. PO SCH (08:35)
[2021-03-29] MEDS: CETIRIZINE HCL 10 MG TABLET PO SCH (08:35)
[2021-03-29] MEDS: GABAPENTIN 100 MG CAPSULE. PO SCH ×2 (08:36→13:10)
[2021-03-29] MEDS: POTASSIUM CHLORIDE 20 MEQ TABLET.ER. PO SCH ×2 (08:36→19:36)
[2021-03-29] MEDS: ZINC SULFATE 220 MG CAPSULE. PO SCH (09:00)
[2021-03-29] MEDS: MULTIVITAMIN with MINERAL TABLET. PO SCH (09:00)
[2021-03-29] MEDS: ASCORBIC ACID 500 MG TABLET PO SCH (09:00)
[2021-03-29] MEDS: POLYETHYLENE GLYCOL 3350 17 GM PACKET. PO SCH (09:00)
--- NOTE | 2021-03-29 10:40 | NUR ---
Pt has been present and visible on the unit. She has not interacted much with others so far this shift, but her behaviors have been appropriate. She has been observed casually wheeling self around the unit in her w/c. She is not compliant with medications, a portion of the morning medications had to be crushed and administered SL with fluid. The other half of her morning medications are pending administration later in the morning; the amount of morning medications is difficult (almost impossible) to completely dissolve in water. Pt non-verbal, A&O to self only. Absent of verbal/physical aggression. Plan of care continues, will pass to next shift.
[2021-03-29 15:38] VITALS: BP 117/65
[2021-03-29] MEDS: VALPROATE ACID 250 MG/5 ML ORAL SOLUTION PO SCH (19:35)
[2021-03-29] MEDS: MELATONIN 3 MG TABLET PO SCH (19:36)
[2021-03-29] MEDS: PHENYTOIN SODIUM EXTENDED 100 MG CAPSULE PO SCH (19:36)
[2021-03-29] MEDS: traZODone 50 MG TABLET. PO SCH (19:36)
[2021-03-29] MEDS: MIRTAZAPINE 7.5 MG TABLET. PO SCH (19:36)
--- NOTE | 2021-03-29 22:19 | NUR ---
Pt withdrawn to her room, lying in bed when approached. Pt yelling out at times, resistive with medications and cares. Medications administered crushed and dissolved via oral syringe. Pt attempted to spit some of the medications out but was mostly unsuccessful.
[2021-03-29] MEDS: traMADol 50 MG TABLET PO PRN (23:36)
--- NOTE | 2021-03-29 23:40 | NUR ---
Pt has been yelling out while lying in her bed. Staff has attempted to reposition and provide comfort without success. When asked if she was in pain, pt responded "yeah". PRN Tramadol administered crushed via oral syringe.
--- NOTE | 2021-03-29 23:59 | PN ---
DATE: 03/29/2021 SUBJECTIVE: The patient was seen today, met with the staff, chart reviewed. Staff reports continued behavior problems, problems with the communication, increased confusion. Also agitation at times. The patient is also difficult to redirect. OBSERVATION: VITAL SIGNS: Temperature 96.9, blood pressure 115/74, pulse 53, respirations 20, O2 sat 97%. GENERAL: Slept about 8 hours last night. Her appetite is normal. LABORATORY DATA: The patient's lab reviewed. CURRENT MEDICATIONS: Gabapentin 100 mg 3 times a day, Zoloft 75 mg daily, melatonin 6 mg at night, and trazodone 50 mg at night. The patient is also on mirtazapine 7.5 mg at night. The patient is not exhibiting any side effects to medications. ASSESSMENT: 1. Major depressive disorder with psychotic features. 2. Impulse control disorder, unspecified. 3. Generalized anxiety disorder. PLAN: To continue with the treatment. LENGTH OF STAY: 7 days. CANDELARIA/ANGEL DR: Parisa TID: [id number]
[2021-03-30] MEDS: LEVOTHYROXINE 50 MCG TABLET PO SCH (05:17)
[2021-03-30 05:55] VITALS: BP 131/59
[2021-03-30] MEDS: ZINC SULFATE 220 MG CAPSULE. PO SCH (09:00)
[2021-03-30] MEDS: MULTIVITAMIN with MINERAL TABLET. PO SCH (09:00)
[2021-03-30] MEDS: CHOLECALCIFEROL (VITAMIN D3) 50,000 UNIT CAPSULE PO SCH (09:00)
[2021-03-30] MEDS: ASPIRIN CHEWABLE 81 MG TABLET. PO SCH (09:00)
[2021-03-30] MEDS: POLYETHYLENE GLYCOL 3350 17 GM PACKET. PO SCH (09:00)
[2021-03-30] MEDS: CETIRIZINE HCL 10 MG TABLET PO SCH (09:00)
[2021-03-30] MEDS: ASCORBIC ACID 500 MG TABLET PO SCH (09:00)
[2021-03-30] MEDS: metOLazone 5 MG TABLET PO SCH (09:09)
[2021-03-30] MEDS: VALPROATE ACID 250 MG/5 ML ORAL SOLUTION PO SCH ×2 (09:10→19:59)
[2021-03-30] MEDS: SENNOSIDES 8.6 MG TABLET PO SCH ×3 (09:10→21:00)
[2021-03-30] MEDS: POTASSIUM CHLORIDE 20 MEQ TABLET.ER. PO SCH ×3 (09:10→21:00)
[2021-03-30] MEDS: SERTRALINE 50 MG TABLET. PO SCH (09:11)
--- NOTE | 2021-03-30 09:20 | NUR ---
Pt has been present and visible on the unit. She has been observed to be staying primarily in her room this morning. She is not compliant with medications, a portion of the morning medications had to be crushed and administered SL with fluid. Just like the previous day, morning medications are divided between breakfast and lunch d/t the large amount and difficulty dissolving completely in water. Pt non-verbal, A&O to self only. Absent of verbal/physical aggression. Plan of care continues, will pass to next shift.
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
[2021-03-30 16:16] VITALS: BP 131/78
--- NOTE | 2021-03-30 17:43 | NUR ---
Dr Tellez paged for neuro consult r/t d/c of pt's Gabapentin and hx of seizure d/o
[2021-03-30] MEDS: MIRTAZAPINE 7.5 MG TABLET. PO SCH (19:58)
[2021-03-30] MEDS: traZODone 50 MG TABLET. PO SCH (19:58)
[2021-03-30] MEDS: MELATONIN 3 MG TABLET PO SCH (19:58)
[2021-03-30] MEDS: PHENYTOIN SODIUM EXTENDED 100 MG CAPSULE PO SCH (19:58)
[2021-03-30] MEDS: traMADol 50 MG TABLET PO PRN (21:24)
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
--- NOTE | 2021-03-31 02:17 | PN ---
DATE: 03/30/2021 SUBJECTIVE: The patient was seen today, met with the staff, chart reviewed. The patient's behavior remains the same, constantly pacing on a wheelchair, mostly nonverbal. The patient also refusing to take her medication sometimes. OBSERVATION: VITAL SIGNS: Temperature 97.5, blood pressure 131/59, pulse 83, respirations 18, O2 sat 94%. Slept about 7 hours last night. The patient's appetite is fair. CURRENT MEDICATIONS: Gabapentin 100 mg 3 times a day, Zoloft 75 mg daily, melatonin 6 mg at night and trazodone 50 mg at night. She is also on mirtazapine 7.5 mg at night. The patient denies of any side effects. ASSESSMENT: 1. Major depressive disorder with psychotic features. 2. Impulse control disorder, unspecified. 3. Generalized anxiety disorder. PLAN: To continue with the treatment. LENGTH OF STAY: [address]: Parisa TID: [id number] [facility]
[2021-03-31] MEDS: LEVOTHYROXINE 50 MCG TABLET PO SCH (05:22)
[2021-03-31 06:21] VITALS: BP 154/93
[2021-03-31] MEDS: ASPIRIN CHEWABLE 81 MG TABLET. PO SCH (08:42)
[2021-03-31] MEDS: SENNOSIDES 8.6 MG TABLET PO SCH ×2 (08:42→21:31)
[2021-03-31] MEDS: CETIRIZINE HCL 10 MG TABLET PO SCH (08:42)
[2021-03-31] MEDS: POTASSIUM CHLORIDE 20 MEQ TABLET.ER. PO SCH ×2 (08:42→21:31)
[2021-03-31] MEDS: SERTRALINE 50 MG TABLET. PO SCH (08:42)
[2021-03-31] MEDS: ASCORBIC ACID 500 MG TABLET PO SCH (08:42)
[2021-03-31] MEDS: MULTIVITAMIN with MINERAL TABLET. PO SCH (08:42)
[2021-03-31] MEDS: VALPROATE ACID 250 MG/5 ML ORAL SOLUTION PO SCH ×2 (08:43→21:32)
[2021-03-31] MEDS: ZINC SULFATE 220 MG CAPSULE. PO SCH (08:43)
[2021-03-31] MEDS: POLYETHYLENE GLYCOL 3350 17 GM PACKET. PO SCH (08:43)
--- NOTE | 2021-03-31 15:29 | NUR ---
Nursing note: Patient in dinning room for morning medication and assessment. Medications taken with high encouragement crushed in applesauce. She has limited verbal interaction r/t intellectual disability. She propels self in w/c, requires a 2 person pivot transfer. Patient refused breakfast this morning. She repetitively yells or grunts out. She is currently sitting in her w/c in hallway. Will continue to monitor.
--- NOTE | 2021-03-31 16:20 | NUR ---
SW spoke with pt sister/DPOA, Fariba, and pt facility, [facility]. SW provided update with both and informed that Depakene has been started and level will be monitored. SW agreeable to call back later this week or early next week for another update. Both appreciative of call. SW will continue to follow.
[2021-03-31] MEDS: MIRTAZAPINE 7.5 MG TABLET. PO SCH (21:31)
[2021-03-31] MEDS: MELATONIN 3 MG TABLET PO SCH (21:31)
[2021-03-31] MEDS: traZODone 50 MG TABLET. PO SCH (21:31)
[2021-03-31] MEDS: traMADol 50 MG TABLET PO PRN (21:32)
[2021-03-31] MEDS: PHENYTOIN SODIUM EXTENDED 100 MG CAPSULE PO SCH (21:32)
--- NOTE | 2021-04-01 01:58 | NUR ---
Pt sitting up in w/c, self-propelling in hallway when approached. Pt restless, disorganized, and yelling out periodically. Pt resistive with medications but complied with them crushed in pudding with much encouragement. PRN Tramadol administered as ordered for s/sx of pain. No agitation or combativeness noted thus far this shift.
--- NOTE | 2021-04-01 02:38 | PN ---
DATE: 03/31/2021 SUBJECTIVE: The patient was seen today, met with the staff, chart reviewed. The patient has been refusing her medications, tendency to become combative at times, also resistive to care. The patient also not able to communicate, mostly monosyllabic answers. OBSERVATION: VITAL SIGNS: Temperature 96.7, blood pressure 154/93, pulse 76, respirations 16, O2 sat 96%. GENERAL: Slept about 6 hours last night. The patient's appetite is good. LABORATORY DATA: The patient's lab reviewed. CURRENT MEDICATIONS: Gabapentin 100 mg 3 times a day, Zoloft 75 mg daily, melatonin 6 mg at night, trazodone 50 mg at night, and mirtazapine 7.5 mg at night. The patient is not having any side effects to medications. ASSESSMENT: 1. Major depressive disorder with psychotic features. 2. Impulse control disorder, unspecified. 3. Generalized anxiety disorder. PLAN: Continue with treatment. LENGTH OF STAY: [address]: Parisa TID: [id number]
[2021-04-01] MEDS: LEVOTHYROXINE 50 MCG TABLET PO SCH (05:53)
[2021-04-01 06:37] VITALS: BP 147/77
[2021-04-01] MEDS: SENNOSIDES 8.6 MG TABLET PO SCH ×2 (08:41→21:01)
[2021-04-01] MEDS: VALPROATE ACID 250 MG/5 ML ORAL SOLUTION PO SCH ×2 (08:41→21:01)
[2021-04-01] MEDS: ASCORBIC ACID 500 MG TABLET PO SCH (08:42)
[2021-04-01] MEDS: SERTRALINE 50 MG TABLET. PO SCH (08:42)
[2021-04-01] MEDS: metOLazone 5 MG TABLET PO SCH (08:42)
[2021-04-01] MEDS: CETIRIZINE HCL 10 MG TABLET PO SCH (08:43)
[2021-04-01] MEDS: ZINC SULFATE 220 MG CAPSULE. PO SCH (08:43)
[2021-04-01] MEDS: MULTIVITAMIN with MINERAL TABLET. PO SCH (08:43)
[2021-04-01] MEDS: POLYETHYLENE GLYCOL 3350 17 GM PACKET. PO SCH (08:43)
[2021-04-01] MEDS: ASPIRIN CHEWABLE 81 MG TABLET. PO SCH (08:43)
[2021-04-01] MEDS: POTASSIUM CHLORIDE 20 MEQ TABLET.ER. PO SCH ×2 (08:43→21:01)
--- NOTE | 2021-04-01 10:05 | NUR ---
RN DAY SHIFT NOTE: PT PRESENTS WITH A PLEASANT MOOD/AFFECT. PT WAS MEDICATION COMPLIANT, MEDICATIONS WERE GIVEN IN ENSURE, AND PT DRANK ALL OF IT. PT RESPONDS WELL TO POSITIVE ENCOURAGEMENT OF DOING A GOOD JOB WHEN DRINKING ENSURE. PT IS NOTED TO SPEND TIME IN THE DAY ROOM WITH HER PEERS. PT CONTINUES TO HAVE A GOOD APPETITE. WILL CONTINUE TO MONITOR.
[2021-04-01 15:40] VITALS: BP 117/76
[2021-04-01] MEDS: MELATONIN 3 MG TABLET PO SCH (21:00)
[2021-04-01] MEDS: PHENYTOIN SODIUM EXTENDED 100 MG CAPSULE PO SCH (21:00)
[2021-04-01] MEDS: MIRTAZAPINE 7.5 MG TABLET. PO SCH (21:00)
[2021-04-01] MEDS: traZODone 50 MG TABLET. PO SCH (21:01)
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
[2021-04-01] MEDS: traMADol 50 MG TABLET PO PRN (23:33)
--- NOTE | 2021-04-01 23:41 | NUR ---
Patient is in her bed making sounds that can be heard in the hallway and are disturbing peers. Nurse entered the room twice to see if patient needed anything, patient unable to voice needs and was laying in bed with eyes closed making loud moaning sounds each time. Patient unable to express if she is in pain or not. PRN zyprexa given for agitation as well as PRN Tramadol for pain. Will continue to monitor.
--- NOTE | 2021-04-02 03:31 | PN ---
DATE: 04/01/2021 SUBJECTIVE: The patient was seen today, met with the staff, chart reviewed. The patient's behavior remains the same. She is medication compliant. Still withdrawn, isolative. Problems with communication, making grunting noise, not able to hold a conversation. The patient is much calmer today. OBSERVATION: VITAL SIGNS: Temperature 97.1, blood pressure 147/77, pulse 84, respirations 20, O2 sat 96%. GENERAL: Slept about 5 hours last night. The patient's appetite improved. CURRENT MEDICATIONS: The patient's current medications include gabapentin 100 mg 3 times a day, Zoloft 75 mg daily, melatonin 6 mg at night, trazodone 50 mg at night and mirtazapine 7.5 mg at night. The patient is not having any side effects to medications. ASSESSMENT: 1. Major depressive disorder with psychotic features. 2. Impulse control disorder, unspecified. 3. Generalized anxiety disorder. PLAN: Continue with the treatment. LENGTH OF STAY: 7 days. MAYO/JON DR: Parisa TID: [id number]
[2021-04-02] MEDS: LEVOTHYROXINE 50 MCG TABLET PO SCH (05:41)
[2021-04-02 06:34] VITALS: BP 154/82
[2021-04-02 07:41] LABS: BASO # 0.1 x10^3/uL (0.0-0.2); BASO % 1 % (0-3); EOS # 0.2 x10^3/uL (0.0-0.7); EOS % 4 % (0-3); HEMATOCRIT 35.3 % (36.0-47.0); HEMOGLOBIN 11.7 g/dL (12.0-15.5); LYMPH # 1.6 x10^3/uL (1.0-4.8); LYMPH % 28 % (24-48); MEAN CORPUSCULAR HEMOGLOBIN 33 pg (25-35); MEAN CORPUSCULAR HGB CONC 33 g/dL (31-37); MEAN CORPUSCULAR VOLUME 100 fL (79-100); MONO # 0.4 x10^3/uL (0.0-1.1); MONO % 7 % (0-9); NEUT # 3.4 x10^3uL (1.8-7.7); NEUT % 60 % (31-73); PLATELET COUNT 259 x10^3/uL (140-400); RED BLOOD COUNT 3.54 x10^6/uL (3.50-5.40); RED CELL DISTRIBUTION WIDTH 14.4 % (11.5-14.5); WHITE BLOOD COUNT 5.6 x10^3/uL (4.0-11.0)
[2021-04-02 07:48] LABS: ALBUMIN 2.9 g/dL (3.4-5.0); ALBUMIN/GLOBULIN RATIO 0.7 (1.0-1.7); ALK PHOS 101 U/L (46-116); ALT (SGPT) 35 U/L (14-59); ANION GAP 6 (6-14); AST (SGOT) 21 U/L (15-37); BLOOD UREA NITROGEN 23 mg/dL (7-20); BUN/CREATININE RATIO 46 (6-20); CALCIUM 9.4 mg/dL (8.5-10.1); CARBON DIOXIDE 30 mmol/L (21-32); CHLORIDE 105 mmol/L (98-107); CREATININE 0.5 mg/dL (0.6-1.0); GFR 122.3; GLUCOSE 103 mg/dL (70-99); SODIUM 141 mmol/L (136-145); TOTAL BILIRUBIN 0.2 mg/dL (0.2-1.0); TOTAL PROTEIN 7.1 g/dL (6.4-8.2)
[2021-04-02 07:53] LABS: VAL ACID 19 mcg/mL (50-100)
[2021-04-02] MEDS: ASPIRIN CHEWABLE 81 MG TABLET. PO SCH (08:10)
[2021-04-02] MEDS: SERTRALINE 50 MG TABLET. PO SCH (08:11)
[2021-04-02] MEDS: MULTIVITAMIN with MINERAL TABLET. PO SCH (08:11)
[2021-04-02] MEDS: CETIRIZINE HCL 10 MG TABLET PO SCH (08:12)
[2021-04-02] MEDS: ZINC SULFATE 220 MG CAPSULE. PO SCH (08:12)
[2021-04-02] MEDS: POTASSIUM CHLORIDE 20 MEQ TABLET.ER. PO SCH ×2 (08:12→21:18)
[2021-04-02] MEDS: ASCORBIC ACID 500 MG TABLET PO SCH (08:12)
[2021-04-02] MEDS: SENNOSIDES 8.6 MG TABLET PO SCH ×2 (08:12→21:18)
[2021-04-02] MEDS: POLYETHYLENE GLYCOL 3350 17 GM PACKET. PO SCH (08:15)
[2021-04-02] MEDS: VALPROATE ACID 250 MG/5 ML ORAL SOLUTION PO SCH ×2 (08:26→21:17)
--- NOTE | 2021-04-02 11:12 | NUR ---
RN DAY SHIFT NOTE: PT PRESENTS WITH NEUTRAL MOOD/AFFECT. PT WAS MEDICATION COMPLIANT. PT WAS GIVEN MEDICATION CRUSHED IN ENSURE. PT RESPONDS WELL TO COMPLIMENTS AND SOCIALLY ENGAGING WITH STAFF THROUGH SMILING AT HER AND GIVING PRAISE. PT ENJOYS SMALL AMOUNTS OF POSITIVE INTERACTIONS/ATTENTION THROUGHOUT THE DAY AND IT SEEMS TO BOOST HER MOOD. PT IS NOTED TO BE SPENDING HER TIME IN THE DAY ROOM WITH PEERS AND WHEELING HERSELF IN THE HALLWAY. PT SLEPT 5.25 HOURS LAST NIGHT. WILL CONTINUE TO MONITOR.
--- NOTE | 2021-04-02 11:20 | NUR ---
WEEKLY ACTIVITY THERAPY NOTE Date of Admission:03/16/21 Date of AT Assessment: 03/18 Precipitating behaviors that initiated intake and admission: PA towards peers, chasing peers in mathews, yelling & screaming, refusing medications. Goal aimed: increase stress management and relaxation skills Initial Goal: Pt will participate in at least three individual or group Activity Therapy sessions before discharge Weekly progress towards goal: achieved(03/19-choose your own leisure,03/25-things that go together and BENI talk, 03/26-country/western bingo) Group participation level: 1 min Weekly highlights: grabbed bingo card for country/western bingo group afternoon Behaviors observed: wandering often Plan: repeat goal Beneficial adaptations: encouragement
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
[2021-04-02 16:01] VITALS: BP 136/81
[2021-04-02] MEDS: MELATONIN 3 MG TABLET PO SCH (21:18)
[2021-04-02] MEDS: PHENYTOIN SODIUM EXTENDED 100 MG CAPSULE PO SCH (21:18)
[2021-04-02] MEDS: traZODone 50 MG TABLET. PO SCH (21:18)
[2021-04-02] MEDS: MIRTAZAPINE 7.5 MG TABLET. PO SCH (21:18)
--- NOTE | 2021-04-02 22:15 | PDOC ---
Exam Note: Brooks Note: Please also refer to the separate dictated note~for this date of service dictated separately.~Patient seen individually. Discussed the patient with Nursing staff reviewed the chart.~Reviewed interim history and current functioning. Reviewed vital signs,~Labs/ Radiology~and current medications noted below. Continue current treatment with the changes noted in the dictated addendum note Assessment: Vital Signs/I&O: Vital Signs Date Time Temp Pulse Resp B/P (MAP) Pulse Ox O2 Delivery O2 Flow Rate FiO2 04/02/21 16:01 97.2 91 18 136/81 (99) 96 04/01/21 15:40 Room Air 03/29/21 15:38 0.0 I & O 0 04/01/21 04/01/21 04/02/21 15:00 23:00 07:00 Intake Total 270 ml 20 ml 120 ml Balance 270 ml 20 ml 120 ml Labs: Laboratory Tests Test 04/02/21 07:10 White Blood Count 5.6 x10^3/uL (4.0-11.0) Red Blood Count 3.54 x10^6/uL (3.50-5.40) Hemoglobin 11.7 g/dL (12.0-15.5) L Hematocrit 35.3 % (36.0-47.0) L Mean Corpuscular Volume 100 fL (79-100) Mean Corpuscular Hemoglobin 33 pg (25-35) Mean Corpuscular Hemoglobin Concent 33 g/dL (31-37) Red Cell Distribution Width 14.4 % (11.5-14.5) Platelet Count 259 x10^3/uL (140-400) Neutrophils (%) (Auto) 60 % (31-73) Lymphocytes (%) (Auto) 28 % (24-48) Monocytes (%) (Auto) 7 % (0-9) Eosinophils (%) (Auto) 4 % (0-3) H Basophils (%) (Auto) 1 % (0-3) Neutrophils # (Auto) 3.4 x10^3uL (1.8-7.7) Lymphocytes # (Auto) 1.6 x10^3/uL (1.0-4.8) Monocytes # (Auto) 0.4 x10^3/uL (0.0-1.1) Eosinophils # (Auto) 0.2 x10^3/uL (0.0-0.7) Basophils # (Auto) 0.1 x10^3/uL (0.0-0.2) Sodium Level 141 mmol/L (136-145) Potassium Level 4.0 mmol/L (3.5-5.1) Chloride Level 105 mmol/L (98-107) Carbon Dioxide Level 30 mmol/L (21-32) Anion Gap 6 (6-14) Blood Urea Nitrogen 23 mg/dL (7-20) H Creatinine 0.5 mg/dL (0.6-1.0) L Estimated GFR (Cockcroft-Gault) 122.3 BUN/Creatinine Ratio 46 (6-20) H Glucose Level 103 mg/dL (70-99) H Calcium Level 9.4 mg/dL (8.5-10.1) Total Bilirubin 0.2 mg/dL (0.2-1.0) Aspartate Amino Transferase (AST) 21 U/L (15-37) Alanine Aminotransferase (ALT) 35 U/L (14-59) Alkaline Phosphatase 101 U/L (46-116) Total Protein 7.1 g/dL (6.4-8.2) Albumin 2.9 g/dL (3.4-5.0) L Albumin/Globulin Ratio 0.7 (1.0-1.7) L Valproic Acid Level 19 mcg/mL (50-100) L Valproic Acid Last Dose Date 04/01/21 Valproic Acid Last Dose Time 2100 Current Medications: Meds: Laboratory Tests Test 04/02/21 07:10 White Blood Count 5.6 x10^3/uL Red Blood Count 3.54 x10^6/uL Hemoglobin 11.7 g/dL Hematocrit 35.3 % Mean Corpuscular Volume 100 fL Mean Corpuscular Hemoglobin 33 pg Mean Corpuscular Hemoglobin Concent 33 g/dL Red Cell Distribution Width 14.4 % Platelet Count 259 x10^3/uL Neutrophils (%) (Auto) 60 % Lymphocytes (%) (Auto) 28 % Monocytes (%) (Auto) 7 % Eosinophils (%) (Auto) 4 % Basophils (%) (Auto) 1 % Neutrophils # (Auto) 3.4 x10^3uL Lymphocytes # (Auto) 1.6 x10^3/uL Monocytes # (Auto) 0.4 x10^3/uL Eosinophils # (Auto) 0.2 x10^3/uL Basophils # (Auto) 0.1 x10^3/uL Sodium Level 141 mmol/L Potassium Level 4.0 mmol/L Chloride Level 105 mmol/L Carbon Dioxide Level 30 mmol/L Anion Gap 6 Blood Urea Nitrogen 23 mg/dL Creatinine 0.5 mg/dL Estimated GFR (Cockcroft-Gault) 122.3 BUN/Creatinine Ratio 46 Glucose Level 103 mg/dL Calcium Level 9.4 mg/dL Total Bilirubin 0.2 mg/dL Aspartate Amino Transf (AST/SGOT) 21 U/L Alanine Aminotransferase (ALT/SGPT) 35 U/L Alkaline Phosphatase 101 U/L Total Protein 7.1 g/dL Albumin 2.9 g/dL Albumin/Globulin Ratio 0.7 Valproic Acid (Depakene) Level 19 mcg/mL Valproic Acid Last Dose Date 04/01/21 Valproic Acid Last Dose Time 2100 Current Medications Medications (Trade) Dose Ordered Sig/Kassidy Route PRN Reason Start Time Stop Time Status Last Admin Dose Admin Acetaminophen (Tylenol) 650 mg PRN Q6HRS PRN PO MILD PAIN / TEMP > 100.3'F 03/16/21 15:45 03/30/21 15:04 Multi-Ingredient Ointment (Analgesic [place]) 1 belinda PRN QID PRN TP MUSCLE PAIN 03/16/21 15:45 Al Hydroxide/Mg Hydroxide (Mylanta Plus Xs) 15 ml PRN AFTMEALHC PRN PO DYSPEPSIA 03/16/21 15:45 Magnesium Hydroxide (Milk Of Magnesia) 2,400 mg PRN QHS PRN PO CONSTIPATION 03/16/21 15:45 Acetaminophen (Tylenol) 650 mg PRN Q6HRS PRN PO pain or fever 03/16/21 16:00 UNV Aspirin (Aspirin Chewable) 81 mg DAILY PO 03/17/21 09:00 04/02/21 08:10 Levothyroxine Sodium (Synthroid) 50 mcg DAILY06 PO 03/17/21 06:00 04/02/21 05:41 Al Hydroxide/Mg Hydroxide (Mylanta Plus Xs) 15 ml PRN AFTMEALHC PRN PO DYSPEPSIA 03/16/21 16:00 UNV Magnesium Hydroxide (Milk Of Magnesia) 2,400 mg PRN QHS PRN PO CONSTIPATION 03/16/21 16:00 UNV Metolazone (Zaroxolyn) 5 mg QMWF@0900 PO 03/18/21 09:00 04/01/21 08:42 Mirtazapine (Remeron) 7.5 mg QHS PO 03/16/21 21:00 04/02/21 21:18 Phenytoin Sodium (Dilantin) 300 mg QHS PO 03/16/21 21:00 04/02/21 21:18 Potassium Chloride (Klor-Con) 20 meq BID PO 03/16/21 21:00 04/02/21 21:18 Sennosides (Senna) 8.6 mg BID PO 03/16/21 21:00 04/02/21 21:18 Non-Formulary Medication (Methyl Salicylate/ Menthol (Analgesic [place])) 1 belinda PRN QID PRN TP MUSCLE PAIN 03/16/21 16:00 UNV Multivitamins/ Calcium (Thera-M Plus) 1 tab DAILY PO 03/17/21 09:00 04/02/21 08:11 Polyethylene Glycol (miraLAX) 17 gm DAILY PO 03/17/21 09:00 04/02/21 08:15 Vitamin D (Vitamin D3) 50,000 unit WEEKLY PO 03/23/21 09:00 03/30/21 09:00 Cetirizine HCl (ZyrTEC) 10 mg DAILY PO 03/17/21 09:00 04/02/21 08:12 Sertraline HCl (Zoloft) 50 mg DAILY PO 03/17/21 09:00 03/18/21 18:34 DC 03/18/21 08:31 Denosumab (Prolia) 60 mg QMONTH SQ 04/15/21 09:00 UNV Phenytoin Sodium (Dilantin) 100 mg BID92 PO 03/17/21 09:00 Cancel Tramadol HCl (Ultram) 50 mg PRN BID PRN PO MOD-SEV PAIN 03/16/21 16:15 04/01/21 23:33 Trazodone HCl (Desyrel) 50 mg QHS PO 03/16/21 21:00 04/02/21 21:18 Ascorbic Acid (Vitamin C) 1,000 mg DAILY PO 03/17/21 09:00 04/02/21 08:12 Melatonin (Melatonin) 6 mg HS PO 03/16/21 21:00 04/02/21 21:18 Zinc Sulfate (Orazinc) 220 mg DAILY PO 03/17/21 09:00 04/02/21 08:12 Sertraline HCl (Zoloft) 75 mg DAILY PO 03/19/21 09:00 04/02/21 08:11 Olanzapine (ZyPREXA ZYDIS) 2.5 mg PRN Q2HR PRN PO PSYCHOSIS 03/19/21 20:15 04/01/21 23:32 Influenza Virus Vaccine Quadrival (Flulaval Quad Syringe) 0.5 ml ONCE ONCE VAX IM 03/25/21 09:00 03/25/21 09:01 DC 03/25/21 11:05 Gabapentin (Neurontin) 100 mg TID PO 03/24/21 21:00 03/26/21 11:42 DC 03/26/21 08:24 Gabapentin (Neurontin) 200 mg TID PO 03/26/21 14:00 03/29/21 16:00 DC 03/29/21 13:10 Valproic Acid (Depakene) 250 mg BID PO 03/29/21 21:00 04/02/21 10:15 DC 04/02/21 08:26 Valproic Acid (Depakene) 500 mg BID PO 04/02/21 21:00 04/02/21 21:17 Current Medications Medications (Trade) Dose Ordered Sig/Kassidy Route PRN Reason Start Time Stop Time Status Last Admin Dose Admin Valproic Acid (Depakene) 500 mg BID PO 04/02/21 21:00 04/02/21 21:17 I have reviewed the current psychotropics carefully including drug interactions. Risk benefit ratio favors no change other than as noted in my dictated progress note. Diagnosis: Problems: (1) MDD (major depressive disorder) (2) Impulse control disorder, unspecified (3) Dementia, vascular, with delusions (4) Major depressive disorder with psychotic features (5) Intellectual disability (6) Dementia, vascular, with depression GAMALIEL MALLOY MD Apr 02, 2021 22:14
--- NOTE | 2021-04-03 01:34 | NUR ---
Patient in hallway, ambulating in wheelchair. She was semi-cooperative with HS ADLs but refused to take HS medications. Medications given sublingually via syringe. Patient refused to drink water after medications and tried to spit them at staff. She has been resting/sleeping and quiet this evening since receiving her medications. Patients Depakene has been increased to 500mg BID. CBC/CMP/Valproic level are scheduled for 04/05. Patient has a wound on R lower buttocks, day nurse applied dressing and consulted wound care and dietary. Bandage remained intact.
[2021-04-03] MEDS: LEVOTHYROXINE 50 MCG TABLET PO SCH (05:31)
[2021-04-03 06:19] VITALS: BP 151/78
[2021-04-03] MEDS: MULTIVITAMIN with MINERAL TABLET. PO SCH (09:16)
[2021-04-03] MEDS: SERTRALINE 50 MG TABLET. PO SCH (09:16)
[2021-04-03] MEDS: SENNOSIDES 8.6 MG TABLET PO SCH ×2 (09:16→20:40)
[2021-04-03] MEDS: VALPROATE ACID 250 MG/5 ML ORAL SOLUTION PO SCH ×2 (09:16→20:40)
[2021-04-03] MEDS: metOLazone 5 MG TABLET PO SCH (09:16)
[2021-04-03] MEDS: POLYETHYLENE GLYCOL 3350 17 GM PACKET. PO SCH (09:17)
[2021-04-03] MEDS: ZINC SULFATE 220 MG CAPSULE. PO SCH (09:17)
[2021-04-03] MEDS: ASCORBIC ACID 500 MG TABLET PO SCH (09:17)
[2021-04-03] MEDS: ASPIRIN CHEWABLE 81 MG TABLET. PO SCH (09:17)
[2021-04-03] MEDS: POTASSIUM CHLORIDE 20 MEQ TABLET.ER. PO SCH ×2 (09:17→20:40)
[2021-04-03] MEDS: CETIRIZINE HCL 10 MG TABLET PO SCH (09:18)
[2021-04-03 16:02] VITALS: BP 135/84
--- NOTE | 2021-04-03 16:49 | NUR ---
Wound Care Wound Type/Assessment: patient seen per wound care consult. see wound assessment. patient has some breakdown on the coccyx area and left ischium. left ischium wound a stage 3 pressure ulcer/IAD and the coccyx is a stage 2 pressure ulcer/IAD, patient was incontinent of stool, patient cleaned with cleansing wipes, and wounds were measured and pictured and applied A & D ointment at this time. patient needs to be turning every 2 hours. Treatment Recommendations/Plan: Recommendations of A & D ointment to the skin breakdown on the coccyx and left ischium. Offloading surface/device: Wheelchair cushion and purple wedge. TRENT Mora at bedside during assessment, notified of the recommended POC and wound care will continue to f/u.
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
[2021-04-03] MEDS: traMADol 50 MG TABLET PO PRN (20:40)
[2021-04-03] MEDS: MELATONIN 3 MG TABLET PO SCH (20:41)
[2021-04-03] MEDS: traZODone 50 MG TABLET. PO SCH (20:41)
[2021-04-03] MEDS: PHENYTOIN SODIUM EXTENDED 100 MG CAPSULE PO SCH (20:41)
[2021-04-03] MEDS: MIRTAZAPINE 7.5 MG TABLET. PO SCH (20:41)
[2021-04-03] MEDS: NYSTATIN TOPICAL POWDER 15GM BOTTLE. TP SCH (20:42)
--- NOTE | 2021-04-03 22:04 | PDOC ---
Exam Note: Brooks Note: Please also refer to the separate dictated note~for this date of service dictated separately.~Patient seen individually. Discussed the patient with Nursing staff reviewed the chart.~Reviewed interim history and current functioning. Reviewed vital signs,~Labs/ Radiology~and current medications noted below. Continue current treatment with the changes noted in the dictated addendum note Assessment: Vital Signs/I&O: Vital Signs Date Time Temp Pulse Resp B/P (MAP) Pulse Ox O2 Delivery O2 Flow Rate FiO2 04/03/21 16:02 96.8 85 19 135/84 (101) 92 04/01/21 15:40 Room Air 03/29/21 15:38 0.0 I & O 04/02/21 04/02/21 04/03/21 15:00 23:00 07:00 Intake Total 480 ml 120 ml Balance 480 ml 120 ml Current Medications: Meds: Current Medications Medications (Trade) Dose Ordered Sig/Kassidy Route PRN Reason Start Time Stop Time Status Last Admin Dose Admin Acetaminophen (Tylenol) 650 mg PRN Q6HRS PRN PO MILD PAIN / TEMP > 100.3'F 03/16/21 15:45 03/30/21 15:04 Multi-Ingredient Ointment (Analgesic [place]) 1 belinda PRN QID PRN TP MUSCLE PAIN 03/16/21 15:45 Al Hydroxide/Mg Hydroxide (Mylanta Plus Xs) 15 ml PRN AFTMEALHC PRN PO DYSPEPSIA 03/16/21 15:45 Magnesium Hydroxide (Milk Of Magnesia) 2,400 mg PRN QHS PRN PO CONSTIPATION 03/16/21 15:45 Acetaminophen (Tylenol) 650 mg PRN Q6HRS PRN PO pain or fever 03/16/21 16:00 UNV Aspirin (Aspirin Chewable) 81 mg DAILY PO 03/17/21 09:00 04/03/21 09:17 Levothyroxine Sodium (Synthroid) 50 mcg DAILY06 PO 03/17/21 06:00 04/03/21 05:31 Al Hydroxide/Mg Hydroxide (Mylanta Plus Xs) 15 ml PRN AFTMEALHC PRN PO DYSPEPSIA 03/16/21 16:00 UNV Magnesium Hydroxide (Milk Of Magnesia) 2,400 mg PRN QHS PRN PO CONSTIPATION 03/16/21 16:00 UNV Metolazone (Zaroxolyn) 5 mg QMWF@0900 PO 03/18/21 09:00 04/03/21 09:16 Mirtazapine (Remeron) 7.5 mg QHS PO 03/16/21 21:00 04/03/21 20:41 Phenytoin Sodium (Dilantin) 300 mg QHS PO 03/16/21 21:00 04/03/21 20:41 Potassium Chloride (Klor-Con) 20 meq BID PO 03/16/21 21:00 04/03/21 20:40 Sennosides (Senna) 8.6 mg BID PO 03/16/21 21:00 04/03/21 20:40 Non-Formulary Medication (Methyl Salicylate/ Menthol (Analgesic [place])) 1 belinda PRN QID PRN TP MUSCLE PAIN 03/16/21 16:00 UNV Multivitamins/ Calcium (Thera-M Plus) 1 tab DAILY PO 03/17/21 09:00 04/03/21 09:16 Polyethylene Glycol (miraLAX) 17 gm DAILY PO 03/17/21 09:00 04/03/21 09:17 Vitamin D (Vitamin D3) 50,000 unit WEEKLY PO 03/23/21 09:00 03/30/21 09:00 Cetirizine HCl (ZyrTEC) 10 mg DAILY PO 03/17/21 09:00 04/03/21 09:18 Sertraline HCl (Zoloft) 50 mg DAILY PO 03/17/21 09:00 03/18/21 18:34 DC 03/18/21 08:31 Denosumab (Prolia) 60 mg QMONTH SQ 04/15/21 09:00 UNV Phenytoin Sodium (Dilantin) 100 mg BID92 PO 03/17/21 09:00 Cancel Tramadol HCl (Ultram) 50 mg PRN BID PRN PO MOD-SEV PAIN 03/16/21 16:15 04/03/21 20:40 Trazodone HCl (Desyrel) 50 mg QHS PO 03/16/21 21:00 04/03/21 20:41 Ascorbic Acid (Vitamin C) 1,000 mg DAILY PO 03/17/21 09:00 04/03/21 09:17 Melatonin (Melatonin) 6 mg HS PO 03/16/21 21:00 04/03/21 20:41 Zinc Sulfate (Orazinc) 220 mg DAILY PO 03/17/21 09:00 04/03/21 09:17 Sertraline HCl (Zoloft) 75 mg DAILY PO 03/19/21 09:00 04/03/21 09:16 Olanzapine (ZyPREXA ZYDIS) 2.5 mg PRN Q2HR PRN PO PSYCHOSIS 03/19/21 20:15 04/01/21 23:32 Influenza Virus Vaccine Quadrival (Flulaval Quad Syringe) 0.5 ml ONCE ONCE VAX IM 03/25/21 09:00 03/25/21 09:01 DC 03/25/21 11:05 Gabapentin (Neurontin) 100 mg TID PO 03/24/21 21:00 03/26/21 11:42 DC 03/26/21 08:24 Gabapentin (Neurontin) 200 mg TID PO 03/26/21 14:00 03/29/21 16:00 DC 03/29/21 13:10 Valproic Acid (Depakene) 250 mg BID PO 03/29/21 21:00 04/02/21 10:15 DC 04/02/21 08:26 Valproic Acid (Depakene) 500 mg BID PO 04/02/21 21:00 04/03/21 20:40 Nystatin (Nystop) 1 belinda BID TP 04/03/21 21:00 04/03/21 20:42 Vitamin A/Vitamin D (Vitamin A & D Ointment) 1 belinda PRN Q1HR PRN TP SKIN PROTECTION 04/03/21 16:45 Current Medications Medications (Trade) Dose Ordered Sig/Kassidy Route PRN Reason Start Time Stop Time Status Last Admin Dose Admin Nystatin (Nystop) 1 belinda BID TP 04/03/21 21:00 04/03/21 20:42 I have reviewed the current psychotropics carefully including drug interactions. Risk benefit ratio favors no change other than as noted in my dictated progress note. Diagnosis: Problems: (1) MDD (major depressive disorder) (2) Impulse control disorder, unspecified (3) Anxiety disorder, unspecified (4) Major depressive disorder with psychotic features (5) Intellectual disability GAMALIEL MALLOY MD Apr 03, 2021 22:04
--- NOTE | 2021-04-04 01:07 | NUR ---
Patient calling out, moaning at times. PRN Tramadol given with HS meds. Patient combative and trying to spit out meds. Meds given via syringe as patient refused them whole. Patient combative with ADLs as well. Will continue to monitor.
[2021-04-04] MEDS: LEVOTHYROXINE 50 MCG TABLET PO SCH (05:07)
[2021-04-04 05:59] VITALS: BP 147/75
[2021-04-04] MEDS: ASPIRIN CHEWABLE 81 MG TABLET. PO SCH (09:00)
[2021-04-04] MEDS: SENNOSIDES 8.6 MG TABLET PO SCH ×2 (09:00→21:31)
[2021-04-04] MEDS: POLYETHYLENE GLYCOL 3350 17 GM PACKET. PO SCH (09:00)
[2021-04-04] MEDS: ZINC SULFATE 220 MG CAPSULE. PO SCH (09:00)
[2021-04-04] MEDS: MULTIVITAMIN with MINERAL TABLET. PO SCH (09:00)
[2021-04-04] MEDS: POTASSIUM CHLORIDE 20 MEQ TABLET.ER. PO SCH ×2 (09:00→21:31)
[2021-04-04] MEDS: ASCORBIC ACID 500 MG TABLET PO SCH (09:00)
[2021-04-04] MEDS: VALPROATE ACID 250 MG/5 ML ORAL SOLUTION PO SCH ×2 (09:00→21:30)
[2021-04-04] MEDS: NYSTATIN TOPICAL POWDER 15GM BOTTLE. TP SCH ×2 (09:00→21:00)
[2021-04-04] MEDS: SERTRALINE 50 MG TABLET. PO SCH (09:00)
[2021-04-04] MEDS: CETIRIZINE HCL 10 MG TABLET PO SCH (09:00)
--- NOTE | 2021-04-04 10:43 | NUR ---
Pt has been in bed for the duration of the morning, she is being turned Q2H d/t apparent wounds on buttocks. Pt is not med compliant; on 2 occasions she has spit out medications. She will take her tongue and press it against the tip of the SL syringe, preventing administration. Pt absent of SI/HI behaviors, she does not appear to be distracted/disturbed by potential VH/AH. She is not verbal today, PAINAD score is 3. She will intermittently yell and cry out from bed, this has been a consistent behavior since admission. Plan of care continues, will pass to next shift.
[2021-04-04 15:45] VITALS: BP 115/71
[2021-04-04] MEDS: PHENYTOIN SODIUM EXTENDED 100 MG CAPSULE PO SCH (21:31)
[2021-04-04] MEDS: MELATONIN 3 MG TABLET PO SCH (21:31)
[2021-04-04] MEDS: traZODone 50 MG TABLET. PO SCH (21:32)
[2021-04-04] MEDS: MIRTAZAPINE 7.5 MG TABLET. PO SCH (21:32)
--- NOTE | 2021-04-04 22:06 | PDOC ---
Exam Note: Brooks Note: Please also refer to the separate dictated note~for this date of service dictated separately.~Patient seen individually. Discussed the patient with Nursing staff reviewed the chart.~Reviewed interim history and current functioning. Reviewed vital signs,~Labs/ Radiology~and current medications noted below. Continue current treatment with the changes noted in the dictated addendum note Assessment: Vital Signs/I&O: Vital Signs Date Time Temp Pulse Resp B/P (MAP) Pulse Ox O2 Delivery O2 Flow Rate FiO2 04/04/21 15:45 97.2 88 20 115/71 (86) 97 Room Air 03/29/21 15:38 0.0 I & O 04/03/21 04/03/21 04/04/21 15:00 23:00 07:00 Intake Total 300 ml 100 ml Balance 300 ml 100 ml Current Medications: Meds: Current Medications Medications (Trade) Dose Ordered Sig/Kassidy Route PRN Reason Start Time Stop Time Status Last Admin Dose Admin Acetaminophen (Tylenol) 650 mg PRN Q6HRS PRN PO MILD PAIN / TEMP > 100.3'F 03/16/21 15:45 03/30/21 15:04 Multi-Ingredient Ointment (Analgesic [place]) 1 belinda PRN QID PRN TP MUSCLE PAIN 03/16/21 15:45 Al Hydroxide/Mg Hydroxide (Mylanta Plus Xs) 15 ml PRN AFTMEALHC PRN PO DYSPEPSIA 03/16/21 15:45 Magnesium Hydroxide (Milk Of Magnesia) 2,400 mg PRN QHS PRN PO CONSTIPATION 03/16/21 15:45 Acetaminophen (Tylenol) 650 mg PRN Q6HRS PRN PO pain or fever 03/16/21 16:00 UNV Aspirin (Aspirin Chewable) 81 mg DAILY PO 03/17/21 09:00 04/04/21 09:00 Levothyroxine Sodium (Synthroid) 50 mcg DAILY06 PO 03/17/21 06:00 04/04/21 05:07 Al Hydroxide/Mg Hydroxide (Mylanta Plus Xs) 15 ml PRN AFTMEALHC PRN PO DYSPEPSIA 03/16/21 16:00 UNV Magnesium Hydroxide (Milk Of Magnesia) 2,400 mg PRN QHS PRN PO CONSTIPATION 03/16/21 16:00 UNV Metolazone (Zaroxolyn) 5 mg QMWF@0900 PO 03/18/21 09:00 04/03/21 09:16 Mirtazapine (Remeron) 7.5 mg QHS PO 03/16/21 21:00 04/04/21 21:32 Phenytoin Sodium (Dilantin) 300 mg QHS PO 03/16/21 21:00 04/04/21 21:31 Potassium Chloride (Klor-Con) 20 meq BID PO 03/16/21 21:00 04/04/21 21:31 Sennosides (Senna) 8.6 mg BID PO 03/16/21 21:00 04/04/21 21:31 Non-Formulary Medication (Methyl Salicylate/ Menthol (Analgesic [place])) 1 belinda PRN QID PRN TP MUSCLE PAIN 03/16/21 16:00 UNV Multivitamins/ Calcium (Thera-M Plus) 1 tab DAILY PO 03/17/21 09:00 04/03/21 09:16 Polyethylene Glycol (miraLAX) 17 gm DAILY PO 03/17/21 09:00 04/03/21 09:17 Vitamin D (Vitamin D3) 50,000 unit WEEKLY PO 03/23/21 09:00 03/30/21 09:00 Cetirizine HCl (ZyrTEC) 10 mg DAILY PO 03/17/21 09:00 04/03/21 09:18 Sertraline HCl (Zoloft) 50 mg DAILY PO 03/17/21 09:00 03/18/21 18:34 DC 03/18/21 08:31 Denosumab (Prolia) 60 mg QMONTH SQ 04/15/21 09:00 UNV Phenytoin Sodium (Dilantin) 100 mg BID92 PO 03/17/21 09:00 Cancel Tramadol HCl (Ultram) 50 mg PRN BID PRN PO MOD-SEV PAIN 03/16/21 16:15 04/03/21 20:40 Trazodone HCl (Desyrel) 50 mg QHS PO 03/16/21 21:00 04/04/21 21:32 Ascorbic Acid (Vitamin C) 1,000 mg DAILY PO 03/17/21 09:00 04/03/21 09:17 Melatonin (Melatonin) 6 mg HS PO 03/16/21 21:00 04/04/21 21:31 Zinc Sulfate (Orazinc) 220 mg DAILY PO 03/17/21 09:00 04/03/21 09:17 Sertraline HCl (Zoloft) 75 mg DAILY PO 03/19/21 09:00 04/04/21 09:00 Olanzapine (ZyPREXA ZYDIS) 2.5 mg PRN Q2HR PRN PO PSYCHOSIS 03/19/21 20:15 04/04/21 04:22 Influenza Virus Vaccine Quadrival (Flulaval Quad Syringe) 0.5 ml ONCE ONCE VAX IM 03/25/21 09:00 03/25/21 09:01 DC 03/25/21 11:05 Gabapentin (Neurontin) 100 mg TID PO 03/24/21 21:00 03/26/21 11:42 DC 03/26/21 08:24 Gabapentin (Neurontin) 200 mg TID PO 03/26/21 14:00 03/29/21 16:00 DC 03/29/21 13:10 Valproic Acid (Depakene) 250 mg BID PO 03/29/21 21:00 04/02/21 10:15 DC 04/02/21 08:26 Valproic Acid (Depakene) 500 mg BID PO 04/02/21 21:00 04/04/21 21:30 Nystatin (Nystop) 1 belinda BID TP 04/03/21 21:00 04/04/21 21:00 Vitamin A/Vitamin D (Vitamin A & D Ointment) 1 belinda PRN Q1HR PRN TP SKIN PROTECTION 04/03/21 16:45 I have reviewed the current psychotropics carefully including drug interactions. Risk benefit ratio favors no change other than as noted in my dictated progress note. Diagnosis: Problems: (1) MDD (major depressive disorder) (2) Impulse control disorder, unspecified (3) Anxiety disorder, unspecified (4) Major depressive disorder with psychotic features (5) Intellectual disability GAMALIEL MALLOY MD Apr 04, 2021 22:06
--- NOTE | 2021-04-04 23:55 | NUR ---
Nursing note: Pt resistive to cares, repeatedly spitting medications out of mouth, stated "get out" to staff when attempting to give medication. Turned q2h, barrier cream applied to buttocks. Unable to assess for SI/HI/hallucinations d/t limited verbal ability.
[2021-04-05] MEDS: LEVOTHYROXINE 50 MCG TABLET PO SCH (04:04)
[2021-04-05 06:21] VITALS: BP 137/63
[2021-04-05] MEDS: POTASSIUM CHLORIDE 20 MEQ TABLET.ER. PO SCH ×2 (08:13→20:03)
[2021-04-05] MEDS: MULTIVITAMIN with MINERAL TABLET. PO SCH (08:13)
[2021-04-05] MEDS: SENNOSIDES 8.6 MG TABLET PO SCH ×2 (08:13→20:02)
[2021-04-05] MEDS: ASCORBIC ACID 500 MG TABLET PO SCH (08:13)
[2021-04-05] MEDS: ZINC SULFATE 220 MG CAPSULE. PO SCH (08:13)
[2021-04-05] MEDS: SERTRALINE 50 MG TABLET. PO SCH (08:13)
[2021-04-05] MEDS: VALPROATE ACID 250 MG/5 ML ORAL SOLUTION PO SCH ×2 (08:13→20:02)
[2021-04-05] MEDS: CETIRIZINE HCL 10 MG TABLET PO SCH (08:14)
[2021-04-05] MEDS: ASPIRIN CHEWABLE 81 MG TABLET. PO SCH (08:14)
[2021-04-05] MEDS: POLYETHYLENE GLYCOL 3350 17 GM PACKET. PO SCH (08:14)
[2021-04-05] MEDS: NYSTATIN TOPICAL POWDER 15GM BOTTLE. TP SCH ×2 (09:00→20:04)
--- NOTE | 2021-04-05 09:05 | PDOC ---
Exam Note: Brooks Note: This note is a late entry for 04/02/2021 covers elements not covered in my initial note. Subjective: This is my first visit with the patient since 03/21/[address] Mendez covered for me during my vacation. Reviewed information with Dr. Mendez, reviewed current and past records, reviewed interim history and circumstances prompting this referral for inpatient psychiatric stabilization. The patient was reviewed at treatment team meeting individually in the morning on 04/02/2021 with Angela Ochoa, Katty Mathew (high school social studies tutor), Radha, activity therapy and Carlota NEWMAN, discussed and reviewed the chart. The patient slept 5-1/4 hours previous night. She intermittently refuses her medications. CBC was unremarkable. BUN 23. Valproic acid level 19. BUN and creatinine ratio was 46. She has attended one group in the past one week. She has received p.r.n. Zyprexa due to agitation. detention is wondering whether topical gel might be preferable for her. We will discuss the option of Ativan, Benadryl, Haldol gel is this can be made available at the care home post discharge. Review of Systems: Ambulation impaired in wheelchair. No CV, , pulmonary, eye, ENT system symptoms on review. Reliability poor. Mental Status Exam: The patient is oriented to herself. Insight and judgment, recent and remote memory, attention and concentration, fund of knowledge is poor consistent with her diagnoses. Mood and affect remains labile. Laboratory Data: Reviewed. Impression: Major depressive disorder with psychotic features. Anxiety disorder unspecified. Impulse control disorder unspecified. Intellectual disability. Plan: Continue current psychotropics. Dilantin level is therapeutic at 17.6. We will continue this unchanged. Follow labs level on Depakene. Adjust to reach therapeutic level. Assessment: Vital Signs/I&O: Vital Signs Date Time Temp Pulse Resp B/P (MAP) Pulse Ox O2 Delivery O2 Flow Rate FiO2 04/05/21 06:21 98.5 72 20 137/63 (87) 97 04/04/21 15:45 Room Air I & O 04/04/21 04/04/21 04/05/21 15:00 23:00 07:00 Intake Total 360 ml 340 ml Balance 360 ml 340 ml Current Medications: Meds: Current Medications Medications (Trade) Dose Ordered Sig/Kassidy Route PRN Reason Start Time Stop Time Status Last Admin Dose Admin Acetaminophen (Tylenol) 650 mg PRN Q6HRS PRN PO MILD PAIN / TEMP > 100.3'F 03/16/21 15:45 03/30/21 15:04 Multi-Ingredient Ointment (Analgesic [place]) 1 belinda PRN QID PRN TP MUSCLE PAIN 03/16/21 15:45 Al Hydroxide/Mg Hydroxide (Mylanta Plus Xs) 15 ml PRN AFTMEALHC PRN PO DYSPEPSIA 03/16/21 15:45 Magnesium Hydroxide (Milk Of Magnesia) 2,400 mg PRN QHS PRN PO CONSTIPATION 03/16/21 15:45 Acetaminophen (Tylenol) 650 mg PRN Q6HRS PRN PO pain or fever 03/16/21 16:00 UNV Aspirin (Aspirin Chewable) 81 mg DAILY PO 03/17/21 09:00 04/05/21 08:14 Levothyroxine Sodium (Synthroid) 50 mcg DAILY06 PO 03/17/21 06:00 04/05/21 04:04 Al Hydroxide/Mg Hydroxide (Mylanta Plus Xs) 15 ml PRN AFTMEALHC PRN PO DYSPEPSIA 03/16/21 16:00 UNV Magnesium Hydroxide (Milk Of Magnesia) 2,400 mg PRN QHS PRN PO CONSTIPATION 03/16/21 16:00 UNV Metolazone (Zaroxolyn) 5 mg QMWF@0900 PO 03/18/21 09:00 04/03/21 09:16 Mirtazapine (Remeron) 7.5 mg QHS PO 03/16/21 21:00 04/04/21 21:32 Phenytoin Sodium (Dilantin) 300 mg QHS PO 03/16/21 21:00 04/04/21 21:31 Potassium Chloride (Klor-Con) 20 meq BID PO 03/16/21 21:00 04/05/21 08:13 Sennosides (Senna) 8.6 mg BID PO 03/16/21 21:00 04/05/21 08:13 Non-Formulary Medication (Methyl Salicylate/ Menthol (Analgesic [place])) 1 belinda PRN QID PRN TP MUSCLE PAIN 03/16/21 16:00 UNV Multivitamins/ Calcium (Thera-M Plus) 1 tab DAILY PO 03/17/21 09:00 04/05/21 08:13 Polyethylene Glycol (miraLAX) 17 gm DAILY PO 03/17/21 09:00 04/03/21 09:17 Vitamin D (Vitamin D3) 50,000 unit WEEKLY PO 03/23/21 09:00 03/30/21 09:00 Cetirizine HCl (ZyrTEC) 10 mg DAILY PO 03/17/21 09:00 04/05/21 08:14 Sertraline HCl (Zoloft) 50 mg DAILY PO 03/17/21 09:00 03/18/21 18:34 DC 03/18/21 08:31 Denosumab (Prolia) 60 mg QMONTH SQ 04/15/21 09:00 UNV Phenytoin Sodium (Dilantin) 100 mg BID92 PO 03/17/21 09:00 Cancel Tramadol HCl (Ultram) 50 mg PRN BID PRN PO MOD-SEV PAIN 03/16/21 16:15 04/03/21 20:40 Trazodone HCl (Desyrel) 50 mg QHS PO 03/16/21 21:00 04/04/21 21:32 Ascorbic Acid (Vitamin C) 1,000 mg DAILY PO 03/17/21 09:00 04/05/21 08:13 Melatonin (Melatonin) 6 mg HS PO 03/16/21 21:00 04/04/21 21:31 Zinc Sulfate (Orazinc) 220 mg DAILY PO 03/17/21 09:00 04/05/21 08:13 Sertraline HCl (Zoloft) 75 mg DAILY PO 03/19/21 09:00 04/05/21 08:13 Olanzapine (ZyPREXA ZYDIS) 2.5 mg PRN Q2HR PRN PO PSYCHOSIS 03/19/21 20:15 04/04/21 04:22 Influenza Virus Vaccine Quadrival (Flulaval Quad Syringe) 0.5 ml ONCE ONCE VAX IM 03/25/21 09:00 03/25/21 09:01 DC 03/25/21 11:05 Gabapentin (Neurontin) 100 mg TID PO 03/24/21 21:00 03/26/21 11:42 DC 03/26/21 08:24 Gabapentin (Neurontin) 200 mg TID PO 03/26/21 14:00 03/29/21 16:00 DC 03/29/21 13:10 Valproic Acid (Depakene) 250 mg BID PO 03/29/21 21:00 04/02/21 10:15 DC 04/02/21 08:26 Valproic Acid (Depakene) 500 mg BID PO 04/02/21 21:00 04/05/21 08:13 Nystatin (Nystop) 1 belinda BID TP 04/03/21 21:00 04/04/21 21:00 Vitamin A/Vitamin D (Vitamin A & D Ointment) 1 belinda PRN Q1HR PRN TP SKIN PROTECTION 04/03/21 16:45 I have reviewed the current psychotropics carefully including drug interactions. Risk benefit ratio favors no change other than as noted in my dictated progress note. Diagnosis: Problems: (1) Major depressive disorder with psychotic features (2) Intellectual disability (3) Impulse control disorder, unspecified (4) Anxiety disorder, unspecified GAMALIEL MALLOY MD Apr 05, 2021 09:05
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
[2021-04-05 11:54] LABS: BASO % 1 % (0-3); EOS # 0.1 x10^3/uL (0.0-0.7); EOS % 2 % (0-3); HEMATOCRIT 36.6 % (36.0-47.0); HEMOGLOBIN 12.2 g/dL (12.0-15.5); LYMPH # 1.6 x10^3/uL (1.0-4.8); LYMPH % 30 % (24-48); MEAN CORPUSCULAR HEMOGLOBIN 33 pg (25-35); MEAN CORPUSCULAR HGB CONC 33 g/dL (31-37); MEAN CORPUSCULAR VOLUME 98 fL (79-100); MONO # 0.3 x10^3/uL (0.0-1.1); MONO % 7 % (0-9); NEUT # 3.1 x10^3uL (1.8-7.7); NEUT % 60 % (31-73); PLATELET COUNT 283 x10^3/uL (140-400); RED BLOOD COUNT 3.74 x10^6/uL (3.50-5.40); RED CELL DISTRIBUTION WIDTH 14.2 % (11.5-14.5); WHITE BLOOD COUNT 5.2 x10^3/uL (4.0-11.0)
[2021-04-05 12:11] LABS: ALBUMIN 2.9 g/dL (3.4-5.0); ALBUMIN/GLOBULIN RATIO 0.7 (1.0-1.7); ALK PHOS 90 U/L (46-116); ALT (SGPT) 29 U/L (14-59); ANION GAP 8 (6-14); AST (SGOT) 19 U/L (15-37); BLOOD UREA NITROGEN 19 mg/dL (7-20); BUN/CREATININE RATIO 48 (6-20); CALCIUM 9.1 mg/dL (8.5-10.1); CARBON DIOXIDE 30 mmol/L (21-32); CHLORIDE 102 mmol/L (98-107); CREATININE 0.4 mg/dL (0.6-1.0); GFR 157.8; GLUCOSE 101 mg/dL (70-99); POTASSIUM 3.7 mmol/L (3.5-5.1); SODIUM 140 mmol/L (136-145); TOTAL BILIRUBIN 0.2 mg/dL (0.2-1.0); TOTAL PROTEIN 7.3 g/dL (6.4-8.2)
[2021-04-05 12:14] LABS: VAL ACID 57 mcg/mL (50-100)
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
[2021-04-05 16:08] VITALS: BP 159/79
[2021-04-05] MEDS: MIRTAZAPINE 7.5 MG TABLET. PO SCH (20:02)
[2021-04-05] MEDS: traZODone 50 MG TABLET. PO SCH (20:02)
[2021-04-05] MEDS: MELATONIN 3 MG TABLET PO SCH (20:03)
[2021-04-05] MEDS: PHENYTOIN SODIUM EXTENDED 100 MG CAPSULE PO SCH (20:03)
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
--- NOTE | 2021-04-05 21:55 | PDOC ---
Exam Note: Brooks Note: Please also refer to the separate dictated note~for this date of service dictated separately.~Patient seen individually. Discussed the patient with Nursing staff reviewed the chart.~Reviewed interim history and current functioning. Reviewed vital signs,~Labs/ Radiology~and current medications noted below. Continue current treatment with the changes noted in the dictated addendum note Assessment: Vital Signs/I&O: Vital Signs Date Time Temp Pulse Resp B/P (MAP) Pulse Ox O2 Delivery O2 Flow Rate FiO2 04/05/21 16:08 96.9 73 20 159/79 (105) 99 Room Air I & O 04/04/21 04/04/21 04/05/21 15:00 23:00 07:00 Intake Total 360 ml 340 ml Balance 360 ml 340 ml Labs: Laboratory Tests Test 04/05/21 11:00 White Blood Count 5.2 x10^3/uL (4.0-11.0) Red Blood Count 3.74 x10^6/uL (3.50-5.40) Hemoglobin 12.2 g/dL (12.0-15.5) Hematocrit 36.6 % (36.0-47.0) Mean Corpuscular Volume 98 fL (79-100) Mean Corpuscular Hemoglobin 33 pg (25-35) Mean Corpuscular Hemoglobin Concent 33 g/dL (31-37) Red Cell Distribution Width 14.2 % (11.5-14.5) Platelet Count 283 x10^3/uL (140-400) Neutrophils (%) (Auto) 60 % (31-73) Lymphocytes (%) (Auto) 30 % (24-48) Monocytes (%) (Auto) 7 % (0-9) Eosinophils (%) (Auto) 2 % (0-3) Basophils (%) (Auto) 1 % (0-3) Neutrophils # (Auto) 3.1 x10^3uL (1.8-7.7) Lymphocytes # (Auto) 1.6 x10^3/uL (1.0-4.8) Monocytes # (Auto) 0.3 x10^3/uL (0.0-1.1) Eosinophils # (Auto) 0.1 x10^3/uL (0.0-0.7) Basophils # (Auto) 0.0 x10^3/uL (0.0-0.2) Sodium Level 140 mmol/L (136-145) Potassium Level 3.7 mmol/L (3.5-5.1) Chloride Level 102 mmol/L (98-107) Carbon Dioxide Level 30 mmol/L (21-32) Anion Gap 8 (6-14) Blood Urea Nitrogen 19 mg/dL (7-20) Creatinine 0.4 mg/dL (0.6-1.0) L Estimated GFR (Cockcroft-Gault) 157.8 BUN/Creatinine Ratio 48 (6-20) H Glucose Level 101 mg/dL (70-99) H Calcium Level 9.1 mg/dL (8.5-10.1) Total Bilirubin 0.2 mg/dL (0.2-1.0) Aspartate Amino Transferase (AST) 19 U/L (15-37) Alanine Aminotransferase (ALT) 29 U/L (14-59) Alkaline Phosphatase 90 U/L (46-116) Total Protein 7.3 g/dL (6.4-8.2) Albumin 2.9 g/dL (3.4-5.0) L Albumin/Globulin Ratio 0.7 (1.0-1.7) L Valproic Acid Level 57 mcg/mL (50-100) Valproic Acid Last Dose Date 04/04/21 Valproic Acid Last Dose Time 2100 Current Medications: Meds: Laboratory Tests Test 04/05/21 11:00 White Blood Count 5.2 x10^3/uL Red Blood Count 3.74 x10^6/uL Hemoglobin 12.2 g/dL Hematocrit 36.6 % Mean Corpuscular Volume 98 fL Mean Corpuscular Hemoglobin 33 pg Mean Corpuscular Hemoglobin Concent 33 g/dL Red Cell Distribution Width 14.2 % Platelet Count 283 x10^3/uL Neutrophils (%) (Auto) 60 % Lymphocytes (%) (Auto) 30 % Monocytes (%) (Auto) 7 % Eosinophils (%) (Auto) 2 % Basophils (%) (Auto) 1 % Neutrophils # (Auto) 3.1 x10^3uL Lymphocytes # (Auto) 1.6 x10^3/uL Monocytes # (Auto) 0.3 x10^3/uL Eosinophils # (Auto) 0.1 x10^3/uL Basophils # (Auto) 0.0 x10^3/uL Sodium Level 140 mmol/L Potassium Level 3.7 mmol/L Chloride Level 102 mmol/L Carbon Dioxide Level 30 mmol/L Anion Gap 8 Blood Urea Nitrogen 19 mg/dL Creatinine 0.4 mg/dL Estimated GFR (Cockcroft-Gault) 157.8 BUN/Creatinine Ratio 48 Glucose Level 101 mg/dL Calcium Level 9.1 mg/dL Total Bilirubin 0.2 mg/dL Aspartate Amino Transf (AST/SGOT) 19 U/L Alanine Aminotransferase (ALT/SGPT) 29 U/L Alkaline Phosphatase 90 U/L Total Protein 7.3 g/dL Albumin 2.9 g/dL Albumin/Globulin Ratio 0.7 Valproic Acid (Depakene) Level 57 mcg/mL Valproic Acid Last Dose Date 04/04/21 Valproic Acid Last Dose Time 2100 Current Medications Medications (Trade) Dose Ordered Sig/Kassiyd Route PRN Reason Start Time Stop Time Status Last Admin Dose Admin Acetaminophen (Tylenol) 650 mg PRN Q6HRS PRN PO MILD PAIN / TEMP > 100.3'F 03/16/21 15:45 03/30/21 15:04 Multi-Ingredient Ointment (Analgesic [place]) 1 belinda PRN QID PRN TP MUSCLE PAIN 03/16/21 15:45 Al Hydroxide/Mg Hydroxide (Mylanta Plus Xs) 15 ml PRN AFTMEALHC PRN PO DYSPEPSIA 03/16/21 15:45 Magnesium Hydroxide (Milk Of Magnesia) 2,400 mg PRN QHS PRN PO CONSTIPATION 03/16/21 15:45 Acetaminophen (Tylenol) 650 mg PRN Q6HRS PRN PO pain or fever 03/16/21 16:00 UNV Aspirin (Aspirin Chewable) 81 mg DAILY PO 03/17/21 09:00 04/05/21 08:14 Levothyroxine Sodium (Synthroid) 50 mcg DAILY06 PO 03/17/21 06:00 04/05/21 04:04 Al Hydroxide/Mg Hydroxide (Mylanta Plus Xs) 15 ml PRN AFTMEALHC PRN PO DYSPEPSIA 03/16/21 16:00 UNV Magnesium Hydroxide (Milk Of Magnesia) 2,400 mg PRN QHS PRN PO CONSTIPATION 03/16/21 16:00 UNV Metolazone (Zaroxolyn) 5 mg QMWF@0900 PO 03/18/21 09:00 10/1/21 09:16 Mirtazapine (Remeron) 7.5 mg QHS PO 03/16/21 21:00 04/05/21 20:02 Phenytoin Sodium (Dilantin) 300 mg QHS PO 03/16/21 21:00 04/05/21 20:03 Potassium Chloride (Klor-Con) 20 meq BID PO 03/16/21 21:00 04/05/21 20:03 Sennosides (Senna) 8.6 mg BID PO 03/16/21 21:00 04/05/21 20:02 Non-Formulary Medication (Methyl Salicylate/ Menthol (Analgesic [place])) 1 belinda PRN QID PRN TP MUSCLE PAIN 03/16/21 16:00 UNV Multivitamins/ Calcium (Thera-M Plus) 1 tab DAILY PO 03/17/21 09:00 04/05/21 08:13 Polyethylene Glycol (miraLAX) 17 gm DAILY PO 03/17/21 09:00 04/03/21 09:17 Vitamin D (Vitamin D3) 50,000 unit WEEKLY PO 03/23/21 09:00 03/30/21 09:00 Cetirizine HCl (ZyrTEC) 10 mg DAILY PO 03/17/21 09:00 04/05/21 08:14 Sertraline HCl (Zoloft) 50 mg DAILY PO 03/17/21 09:00 03/18/21 18:34 DC 03/18/21 08:31 Denosumab (Prolia) 60 mg QMONTH SQ 04/15/21 09:00 UNV Phenytoin Sodium (Dilantin) 100 mg BID92 PO 03/17/21 09:00 Cancel Tramadol HCl (Ultram) 50 mg PRN BID PRN PO MOD-SEV PAIN 03/16/21 16:15 04/03/21 20:40 Trazodone HCl (Desyrel) 50 mg QHS PO 03/16/21 21:00 04/05/21 20:02 Ascorbic Acid (Vitamin C) 1,000 mg DAILY PO 03/17/21 09:00 04/05/21 08:13 Melatonin (Melatonin) 6 mg HS PO 03/16/21 21:00 04/05/21 20:03 Zinc Sulfate (Orazinc) 220 mg DAILY PO 03/17/21 09:00 04/05/21 08:13 Sertraline HCl (Zoloft) 75 mg DAILY PO 03/19/21 09:00 04/05/21 08:13 Olanzapine (ZyPREXA ZYDIS) 2.5 mg PRN Q2HR PRN PO PSYCHOSIS 03/19/21 20:15 04/04/21 04:22 Influenza Virus Vaccine Quadrival (Flulaval Quad Syringe) 0.5 ml ONCE ONCE VAX IM 03/25/21 09:00 03/25/21 09:01 DC 03/25/21 11:05 Gabapentin (Neurontin) 100 mg TID PO 03/24/21 21:00 03/26/21 11:42 DC 03/26/21 08:24 Gabapentin (Neurontin) 200 mg TID PO 03/26/21 14:00 03/29/21 16:00 DC 03/29/21 13:10 Valproic Acid (Depakene) 250 mg BID PO 03/29/21 21:00 04/02/21 10:15 DC 04/02/21 08:26 Valproic Acid (Depakene) 500 mg BID PO 04/02/21 21:00 04/05/21 20:02 Nystatin (Nystop) 1 belinda BID TP 04/03/21 21:00 04/05/21 20:04 Vitamin A/Vitamin D (Vitamin A & D Ointment) 1 belinda PRN Q1HR PRN TP SKIN PROTECTION 04/03/21 16:45 Quetiapine Fumarate (SEROquel) 12.5 mg 0900,1300,1700 PO 04/06/21 09:00 I have reviewed the current psychotropics carefully including drug interactions. Risk benefit ratio favors no change other than as noted in my dictated progress note. Diagnosis: Problems: (1) Impulse control disorder, unspecified (2) Anxiety disorder, unspecified (3) Major depressive disorder with psychotic features (4) Intellectual disability GAMALIEL MALLOY MD Apr 05, 2021 21:55
[2021-04-06] MEDS: NYSTATIN TOPICAL POWDER 15GM BOTTLE. TP SCH ×2 (04:58→20:19)
[2021-04-06] MEDS: LEVOTHYROXINE 50 MCG TABLET PO SCH (04:58)
[2021-04-06] MEDS: VITS A & D/LANOLIN TOPICAL OINTMENT 42GM TUBE. TP PRN ×2 (04:58→20:19)
[2021-04-06 05:32] VITALS: BP 145/84
[2021-04-06] MEDS: QUEtiapine 25 MG TABLET. PO SCH ×3 (08:24→17:29)
[2021-04-06] MEDS: ASCORBIC ACID 500 MG TABLET PO SCH (08:24)
[2021-04-06] MEDS: metOLazone 5 MG TABLET PO SCH (08:24)
[2021-04-06] MEDS: SENNOSIDES 8.6 MG TABLET PO SCH ×2 (08:24→20:21)
[2021-04-06] MEDS: CHOLECALCIFEROL (VITAMIN D3) 50,000 UNIT CAPSULE PO SCH (08:24)
[2021-04-06] MEDS: ASPIRIN CHEWABLE 81 MG TABLET. PO SCH (08:24)
[2021-04-06] MEDS: VALPROATE ACID 250 MG/5 ML ORAL SOLUTION PO SCH ×2 (08:24→20:20)
[2021-04-06] MEDS: MULTIVITAMIN with MINERAL TABLET. PO SCH (08:25)
[2021-04-06] MEDS: POTASSIUM CHLORIDE 20 MEQ TABLET.ER. PO SCH ×2 (08:25→20:20)
[2021-04-06] MEDS: ZINC SULFATE 220 MG CAPSULE. PO SCH (08:25)
[2021-04-06] MEDS: SERTRALINE 50 MG TABLET. PO SCH (08:25)
[2021-04-06] MEDS: CETIRIZINE HCL 10 MG TABLET PO SCH (08:25)
[2021-04-06] MEDS: POLYETHYLENE GLYCOL 3350 17 GM PACKET. PO SCH (08:25)
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
--- NOTE | 2021-04-06 14:47 | NUR ---
Nursing note: Patient in dinning room for morning medication and assessment. Medications taken with high encouragement crushed in applesauce. She tries to spit medications out. She has limited verbal interaction r/t intellectual disability, appears not to have pain per no facial grimacing noted at this time. She propels self in w/c, requires a [facility] transfer. She continues to yell or grunt out as well as being resistive to cares. She is currently propelling herself through the halls. Will continue to monitor.
[2021-04-06 15:39] VITALS: BP 143/72
[2021-04-06] MEDS: MELATONIN 3 MG TABLET PO SCH (20:20)
[2021-04-06] MEDS: PHENYTOIN SODIUM EXTENDED 100 MG CAPSULE PO SCH (20:20)
[2021-04-06] MEDS: traZODone 50 MG TABLET. PO SCH (20:21)
[2021-04-06] MEDS: MIRTAZAPINE 7.5 MG TABLET. PO SCH (20:21)
--- NOTE | 2021-04-06 21:50 | PDOC ---
Exam Note: Brooks Note: Please also refer to the separate dictated note~for this date of service dictated separately.~Patient seen individually. Discussed the patient with Nursing staff reviewed the chart.~Reviewed interim history and current functioning. Reviewed vital signs,~Labs/ Radiology~and current medications noted below. Continue current treatment with the changes noted in the dictated addendum note Assessment: Vital Signs/I&O: Vital Signs Date Time Temp Pulse Resp B/P (MAP) Pulse Ox O2 Delivery O2 Flow Rate FiO2 04/06/21 15:39 97.2 76 16 143/72 (95) 94 Room Air I & O 04/05/21 04/05/21 04/06/21 15:00 23:00 07:00 Intake Total 160 ml 340 ml Balance 160 ml 340 ml Current Medications: Meds: Current Medications Medications (Trade) Dose Ordered Sig/Kassidy Route PRN Reason Start Time Stop Time Status Last Admin Dose Admin Acetaminophen (Tylenol) 650 mg PRN Q6HRS PRN PO MILD PAIN / TEMP > 100.3'F 03/16/21 15:45 03/30/21 15:04 Multi-Ingredient Ointment (Analgesic Cyrus) 1 belinda PRN QID PRN TP MUSCLE PAIN 03/16/21 15:45 Al Hydroxide/Mg Hydroxide (Mylanta Plus Xs) 15 ml PRN AFTMEALHC PRN PO DYSPEPSIA 03/16/21 15:45 Magnesium Hydroxide (Milk Of Magnesia) 2,400 mg PRN QHS PRN PO CONSTIPATION 03/16/21 15:45 Acetaminophen (Tylenol) 650 mg PRN Q6HRS PRN PO pain or fever 03/16/21 16:00 UNV Aspirin (Aspirin Chewable) 81 mg DAILY PO 03/17/21 09:00 04/06/21 08:24 Levothyroxine Sodium (Synthroid) 50 mcg DAILY06 PO 03/17/21 06:00 04/06/21 04:58 Al Hydroxide/Mg Hydroxide (Mylanta Plus Xs) 15 ml PRN AFTMEALHC PRN PO DYSPEPSIA 03/16/21 16:00 UNV Magnesium Hydroxide (Milk Of Magnesia) 2,400 mg PRN QHS PRN PO CONSTIPATION 03/16/21 16:00 UNV Metolazone (Zaroxolyn) 5 mg QMWF@0900 PO 03/18/21 09:00 04/06/21 08:24 Mirtazapine (Remeron) 7.5 mg QHS PO 03/16/21 21:00 04/06/21 20:21 Phenytoin Sodium (Dilantin) 300 mg QHS PO 03/16/21 21:00 04/06/21 20:20 Potassium Chloride (Klor-Con) 20 meq BID PO 03/16/21 21:00 04/06/21 20:20 Sennosides (Senna) 8.6 mg BID PO 03/16/21 21:00 04/06/21 20:21 Non-Formulary Medication (Methyl Salicylate/ Menthol (Analgesic Cyrus)) 1 belinda PRN QID PRN TP MUSCLE PAIN 03/16/21 16:00 UNV Multivitamins/ Calcium (Thera-M Plus) 1 tab DAILY PO 03/17/21 09:00 04/06/21 08:25 Polyethylene Glycol (miraLAX) 17 gm DAILY PO 03/17/21 09:00 04/03/21 09:17 Vitamin D (Vitamin D3) 50,000 unit WEEKLY PO 03/23/21 09:00 04/06/21 08:24 Cetirizine HCl (ZyrTEC) 10 mg DAILY PO 03/17/21 09:00 04/06/21 08:25 Sertraline HCl (Zoloft) 50 mg DAILY PO 03/17/21 09:00 03/18/21 18:34 DC 03/18/21 08:31 Denosumab (Prolia) 60 mg QMONTH SQ 04/15/21 09:00 UNV Phenytoin Sodium (Dilantin) 100 mg BID92 PO 03/17/21 09:00 Cancel Tramadol HCl (Ultram) 50 mg PRN BID PRN PO MOD-SEV PAIN 03/16/21 16:15 04/03/21 20:40 Trazodone HCl (Desyrel) 50 mg QHS PO 03/16/21 21:00 04/06/21 20:21 Ascorbic Acid (Vitamin C) 1,000 mg DAILY PO 03/17/21 09:00 04/06/21 08:24 Melatonin (Melatonin) 6 mg HS PO 03/16/21 21:00 04/06/21 20:20 Zinc Sulfate (Orazinc) 220 mg DAILY PO 03/17/21 09:00 04/06/21 08:25 Sertraline HCl (Zoloft) 75 mg DAILY PO 03/19/21 09:00 04/06/21 08:25 Olanzapine (ZyPREXA ZYDIS) 2.5 mg PRN Q2HR PRN PO PSYCHOSIS 03/19/21 20:15 04/04/21 04:22 Influenza Virus Vaccine Quadrival (Flulaval Quad [id number] Syringe) 0.5 ml ONCE ONCE VAX IM 03/25/21 09:00 03/25/21 09:01 DC 03/25/21 11:05 Gabapentin (Neurontin) 100 mg TID PO 03/24/21 21:00 03/26/21 11:42 DC 03/26/21 08:24 Gabapentin (Neurontin) 200 mg TID PO 03/26/21 14:00 03/29/21 16:00 DC 03/29/21 13:10 Valproic Acid (Depakene) 250 mg BID PO 03/29/21 21:00 04/02/21 10:15 DC 04/02/21 08:26 Valproic Acid (Depakene) 500 mg BID PO 04/02/21 21:00 04/06/21 20:20 Nystatin (Nystop) 1 belinda BID TP 04/03/21 21:00 04/06/21 20:19 Vitamin A/Vitamin D (Vitamin A & D Ointment) 1 belinda PRN Q1HR PRN TP SKIN PROTECTION 04/03/21 16:45 04/06/21 20:19 Quetiapine Fumarate (SEROquel) 12.5 mg 0900,1300,1700 PO 04/06/21 09:00 04/06/21 17:29 Current Medications Medications (Trade) Dose Ordered Sig/Kassidy Route PRN Reason Start Time Stop Time Status Last Admin Dose Admin Quetiapine Fumarate (SEROquel) 12.5 mg 0900,1300,1700 PO 04/06/21 09:00 04/06/21 17:29 I have reviewed the current psychotropics carefully including drug interactions. Risk benefit ratio favors no change other than as noted in my dictated progress note. Diagnosis: Problems: (1) Major depressive disorder with psychotic features (2) Intellectual disability (3) Impulse control disorder, unspecified (4) Anxiety disorder, unspecified GAMA,MAN M MD Apr 06, 2021 21:50
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
[2021-04-07] MEDS: LEVOTHYROXINE 50 MCG TABLET PO SCH (05:49)
[2021-04-07] MEDS: VITS A & D/LANOLIN TOPICAL OINTMENT 42GM TUBE. TP PRN (05:54)
--- NOTE | 2021-04-07 05:56 | NUR ---
A & D ointment applied at 2100 and 0550. Patient changed, dressed and remains in bed as wound care will be here this morning.
[2021-04-07 06:27] VITALS: BP 116/69
[2021-04-07] MEDS: VALPROATE ACID 250 MG/5 ML ORAL SOLUTION PO SCH ×2 (08:54→20:11)
[2021-04-07] MEDS: QUEtiapine 25 MG TABLET. PO SCH ×3 (08:54→17:25)
[2021-04-07] MEDS: SERTRALINE 50 MG TABLET. PO SCH (08:54)
[2021-04-07] MEDS: POTASSIUM CHLORIDE 20 MEQ TABLET.ER. PO SCH ×2 (08:55→20:13)
[2021-04-07] MEDS: SENNOSIDES 8.6 MG TABLET PO SCH ×2 (08:55→20:12)
[2021-04-07] MEDS: CETIRIZINE HCL 10 MG TABLET PO SCH (08:55)
[2021-04-07] MEDS: MULTIVITAMIN with MINERAL TABLET. PO SCH (08:55)
[2021-04-07] MEDS: ASCORBIC ACID 500 MG TABLET PO SCH (08:55)
[2021-04-07] MEDS: ZINC SULFATE 220 MG CAPSULE. PO SCH (08:55)
[2021-04-07] MEDS: ASPIRIN CHEWABLE 81 MG TABLET. PO SCH (08:55)
[2021-04-07] MEDS: POLYETHYLENE GLYCOL 3350 17 GM PACKET. PO SCH (08:56)
[2021-04-07] MEDS: NYSTATIN TOPICAL POWDER 15GM BOTTLE. TP SCH ×2 (08:56→20:11)
--- NOTE | 2021-04-07 08:59 | NUR ---
Wound care Wound care follow up for pressure ulcers to coccyx and ischium. Wounds have resolved. A&D ointment applied, wheelchair cushion placed in wheelchair and patient turned to left side with wedge. WC will follow up again next week to ensure wounds remain healed.
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
--- NOTE | 2021-04-07 09:57 | PDOC ---
Exam Note: Brooks Note: This note is a late entry for 04/06/2021 covers elements not covered in my initial note. Subjective: The patient was seen individually in the evening of 04/06/2021 with Erika NEWMAN, discussed and reviewed the chart. The patient slept 6-1/4 hours previous night. She remains confused, less yelling. Mood lability appears better since we added the Seroquel. Review of Systems: Ambulation impaired in wheelchair. No CV, , pulmonary, ey e, ENT system symptoms on review. Reliability poor. Mental Status Exam: The patient is oriented to herself. Insight and judgment, recent and remote memory, attention and concentration, fund of knowledge is poor consistent with her diagnoses. Laboratory Data: Reviewed. Impression: Major depressive disorder with psychotic features. Anxiety disorder unspecified. Impulse control disorder unspecified. Intellectual disability. Plan: Continue current psychotropics unchanged. Assessment: Vital Signs/I&O: Vital Signs Date Time Temp Pulse Resp B/P (MAP) Pulse Ox O2 Delivery O2 Flow Rate FiO2 04/07/21 06:27 97.0 90 18 116/69 (85) 100 04/06/21 15:39 Room Air I & O 0 04/06/21 04/06/21 04/07/21 15:00 23:00 07:00 Intake Total 600 ml 340 ml Balance 600 ml 340 ml Current Medications: Meds: Current Medications Medications (Trade) Dose Ordered Sig/Kassidy Route PRN Reason Start Time Stop Time Status Last Admin Dose Admin Acetaminophen (Tylenol) 650 mg PRN Q6HRS PRN PO MILD PAIN / TEMP > 100.3'F 03/16/21 15:45 03/30/21 15:04 Multi-Ingredient Ointment (Analgesic [place]) 1 belinda PRN QID PRN TP MUSCLE PAIN 03/16/21 15:45 Al Hydroxide/Mg Hydroxide (Mylanta Plus Xs) 15 ml PRN AFTMEALHC PRN PO DYSPEPSIA 03/16/21 15:45 Magnesium Hydroxide (Milk Of Magnesia) 2,400 mg PRN QHS PRN PO CONSTIPATION 03/16/21 15:45 Acetaminophen (Tylenol) 650 mg PRN Q6HRS PRN PO pain or fever 03/16/21 16:00 UNV Aspirin (Aspirin Chewable) 81 mg DAILY PO 03/17/21 09:00 04/07/21 08:55 Levothyroxine Sodium (Synthroid) 50 mcg DAILY06 PO 03/17/21 06:00 04/07/21 05:49 Al Hydroxide/Mg Hydroxide (Mylanta Plus Xs) 15 ml PRN AFTMEALHC PRN PO DYSPEPSIA 03/16/21 16:00 UNV Magnesium Hydroxide (Milk Of Magnesia) 2,400 mg PRN QHS PRN PO CONSTIPATION 03/16/21 16:00 UNV Metolazone (Zaroxolyn) 5 mg QMWF@0900 PO 03/18/21 09:00 04/06/21 08:24 Mirtazapine (Remeron) 7.5 mg QHS PO 03/16/21 21:00 04/06/21 20:21 Phenytoin Sodium (Dilantin) 300 mg QHS PO 03/16/21 21:00 04/06/21 20:20 Potassium Chloride (Klor-Con) 20 meq BID PO 03/16/21 21:00 04/07/21 08:55 Sennosides (Senna) 8.6 mg BID PO 03/16/21 21:00 04/07/21 08:55 Non-Formulary Medication (Methyl Salicylate/ Menthol (Analgesic [place])) 1 belinda PRN QID PRN TP MUSCLE PAIN 03/16/21 16:00 UNV Multivitamins/ Calcium (Thera-M Plus) 1 tab DAILY PO 03/17/21 09:00 04/07/21 08:55 Polyethylene Glycol (miraLAX) 17 gm DAILY PO 03/17/21 09:00 04/03/21 09:17 Vitamin D (Vitamin D3) 50,000 unit WEEKLY PO 03/23/21 09:00 04/06/21 08:24 Cetirizine HCl (ZyrTEC) 10 mg DAILY PO 03/17/21 09:00 04/07/21 08:55 Sertraline HCl (Zoloft) 50 mg DAILY PO 03/17/21 09:00 03/18/21 18:34 DC 03/18/21 08:31 Denosumab (Prolia) 60 mg QMONTH SQ 04/15/21 09:00 UNV Phenytoin Sodium (Dilantin) 100 mg BID92 PO 03/17/21 09:00 Cancel Tramadol HCl (Ultram) 50 mg PRN BID PRN PO MOD-SEV PAIN 03/16/21 16:15 04/03/21 20:40 Trazodone HCl (Desyrel) 50 mg QHS PO 03/16/21 21:00 04/06/21 20:21 Ascorbic Acid (Vitamin C) 1,000 mg DAILY PO 03/17/21 09:00 04/07/21 08:55 Melatonin (Melatonin) 6 mg HS PO 03/16/21 21:00 04/06/21 20:20 Zinc Sulfate (Orazinc) 220 mg DAILY PO 03/17/21 09:00 04/07/21 08:55 Sertraline HCl (Zoloft) 75 mg DAILY PO 03/19/21 09:00 04/07/21 08:54 Olanzapine (ZyPREXA ZYDIS) 2.5 mg PRN Q2HR PRN PO PSYCHOSIS 03/19/21 20:15 04/04/21 04:22 Influenza Virus Vaccine Quadrival (Flulaval Quad [id number] Syringe) 0.5 ml ONCE ONCE VAX IM 03/25/21 09:00 03/25/21 09:01 DC 03/25/21 11:05 Gabapentin (Neurontin) 100 mg TID PO 03/24/21 21:00 03/26/21 11:42 DC 03/26/21 08:24 Gabapentin (Neurontin) 200 mg TID PO 03/26/21 14:00 03/29/21 16:00 DC 03/29/21 13:10 Valproic Acid (Depakene) 250 mg BID PO 03/29/21 21:00 04/02/21 10:15 DC 04/02/21 08:26 Valproic Acid (Depakene) 500 mg BID PO 04/02/21 21:00 04/07/21 08:54 Nystatin (Nystop) 1 belinda BID TP 04/03/21 21:00 04/07/21 08:56 Vitamin A/Vitamin D (Vitamin A & D Ointment) 1 belinda PRN Q1HR PRN TP SKIN PROTECTION 04/03/21 16:45 04/07/21 05:54 Quetiapine Fumarate (SEROquel) 12.5 mg 0900,1300,1700 PO 04/06/21 09:00 04/07/21 08:54 I have reviewed the current psychotropics carefully including drug interactions. Risk benefit ratio favors no change other than as noted in my dictated progress note. Diagnosis: Problems: (1) Impulse control disorder, unspecified (2) Anxiety disorder, unspecified (3) Major depressive disorder with psychotic features (4) Intellectual disability GAMALIEL MALLOY MD Apr 07, 2021 09:57
--- NOTE | 2021-04-07 13:54 | NUR ---
Nursing note: Patient in dinning room for morning medication and assessment. Medications taken with high encouragement crushed in applesauce. She tries to spit medications out. She has limited verbal interaction r/t intellectual disability, appears not to have pain per no facial grimacing noted at this time. She propels self in w/c, requires a [facility] transfer. She continues to periodically yell or grunt out as well as being resistive to cares. She is currently sitting in day room listening to music. Will continue to monitor.
[2021-04-07 16:31] VITALS: BP 115/76
[2021-04-07] MEDS: PHENYTOIN SODIUM EXTENDED 100 MG CAPSULE PO SCH (20:12)
[2021-04-07] MEDS: traZODone 50 MG TABLET. PO SCH (20:12)
[2021-04-07] MEDS: MIRTAZAPINE 7.5 MG TABLET. PO SCH (20:12)
[2021-04-07] MEDS: MELATONIN 3 MG TABLET PO SCH (20:12)
--- NOTE | 2021-04-07 22:00 | PDOC ---
Exam Note: Brooks Note: Please also refer to the separate dictated note~for this date of service dictated separately.~Patient seen individually. Discussed the patient with Nursing staff reviewed the chart.~Reviewed interim history and current functioning. Reviewed vital signs,~Labs/ Radiology~and current medications noted below. Continue current treatment with the changes noted in the dictated addendum note Assessment: Vital Signs/I&O: Vital Signs Date Time Temp Pulse Resp B/P (MAP) Pulse Ox O2 Delivery O2 Flow Rate FiO2 04/07/21 16:31 98.6 64 18 115/76 (89) 94 0.0 04/06/21 15:39 Room Air I & O 04/06/21 04/06/21 04/07/21 14:59 22:59 06:59 Intake Total 600 ml 340 ml Balance 600 ml 340 ml Current Medications: Meds: Current Medications Medications (Trade) Dose Ordered Sig/Kassidy Route PRN Reason Start Time Stop Time Status Last Admin Dose Admin Acetaminophen (Tylenol) 650 mg PRN Q6HRS PRN PO MILD PAIN / TEMP > 100.3'F 03/16/21 15:45 03/30/21 15:04 Multi-Ingredient Ointment (Analgesic [place]) 1 belinda PRN QID PRN TP MUSCLE PAIN 03/16/21 15:45 Al Hydroxide/Mg Hydroxide (Mylanta Plus Xs) 15 ml PRN AFTMEALHC PRN PO DYSPEPSIA 03/16/21 15:45 Magnesium Hydroxide (Milk Of Magnesia) 2,400 mg PRN QHS PRN PO CONSTIPATION 03/16/21 15:45 Acetaminophen (Tylenol) 650 mg PRN Q6HRS PRN PO pain or fever 03/16/21 16:00 UNV Aspirin (Aspirin Chewable) 81 mg DAILY PO 03/17/21 09:00 04/07/21 08:55 Levothyroxine Sodium (Synthroid) 50 mcg DAILY06 PO 03/17/21 06:00 04/07/21 05:49 Al Hydroxide/Mg Hydroxide (Mylanta Plus Xs) 15 ml PRN AFTMEALHC PRN PO DYSPEPSIA 03/16/21 16:00 UNV Magnesium Hydroxide (Milk Of Magnesia) 2,400 mg PRN QHS PRN PO CONSTIPATION 03/16/21 16:00 UNV Metolazone (Zaroxolyn) 5 mg QMWF@0900 PO 03/18/21 09:00 04/06/21 08:24 Mirtazapine (Remeron) 7.5 mg QHS PO 03/16/21 21:00 04/07/21 20:12 Phenytoin Sodium (Dilantin) 300 mg QHS PO 03/16/21 21:00 04/07/21 20:12 Potassium Chloride (Klor-Con) 20 meq BID PO 03/16/21 21:00 04/07/21 20:13 Sennosides (Senna) 8.6 mg BID PO 03/16/21 21:00 04/07/21 20:12 Non-Formulary Medication (Methyl Salicylate/ Menthol (Analgesic [place])) 1 belinda PRN QID PRN TP MUSCLE PAIN 03/16/21 16:00 UNV Multivitamins/ Calcium (Thera-M Plus) 1 tab DAILY PO 03/17/21 09:00 04/07/21 08:55 Polyethylene Glycol (miraLAX) 17 gm DAILY PO 03/17/21 09:00 04/03/21 09:17 Vitamin D (Vitamin D3) 50,000 unit WEEKLY PO 03/23/21 09:00 04/06/21 08:24 Cetirizine HCl (ZyrTEC) 10 mg DAILY PO 03/17/21 09:00 04/07/21 08:55 Sertraline HCl (Zoloft) 50 mg DAILY PO 03/17/21 09:00 03/18/21 18:34 DC 03/18/21 08:31 Denosumab (Prolia) 60 mg QMONTH SQ 04/15/21 09:00 UNV Phenytoin Sodium (Dilantin) 100 mg BID92 PO 03/17/21 09:00 Cancel Tramadol HCl (Ultram) 50 mg PRN BID PRN PO MOD-SEV PAIN 03/16/21 16:15 04/03/21 20:40 Trazodone HCl (Desyrel) 50 mg QHS PO 03/16/21 21:00 04/07/21 20:12 Ascorbic Acid (Vitamin C) 1,000 mg DAILY PO 03/17/21 09:00 04/07/21 08:55 Melatonin (Melatonin) 6 mg HS PO 03/16/21 21:00 04/07/21 20:12 Zinc Sulfate (Orazinc) 220 mg DAILY PO 03/17/21 09:00 04/07/21 08:55 Sertraline HCl (Zoloft) 75 mg DAILY PO 03/19/21 09:00 04/07/21 08:54 Olanzapine (ZyPREXA ZYDIS) 2.5 mg PRN Q2HR PRN PO PSYCHOSIS 03/19/21 20:15 04/07/21 15:55 Influenza Virus Vaccine Quadrival (Flulaval Quad Syringe) 0.5 ml ONCE ONCE VAX IM 03/25/21 09:00 03/25/21 09:01 DC 03/25/21 11:05 Gabapentin (Neurontin) 100 mg TID PO 03/24/21 21:00 03/26/21 11:42 DC 03/26/21 08:24 Gabapentin (Neurontin) 200 mg TID PO 03/26/21 14:00 03/29/21 16:00 DC 03/29/21 13:10 Valproic Acid (Depakene) 250 mg BID PO 03/29/21 21:00 04/02/21 10:15 DC 04/02/21 08:26 Valproic Acid (Depakene) 500 mg BID PO 04/02/21 21:00 04/07/21 20:11 Nystatin (Nystop) 1 belinda BID TP 04/03/21 21:00 04/07/21 20:11 Vitamin A/Vitamin D (Vitamin A & D Ointment) 1 belinda PRN Q1HR PRN TP SKIN PROTECTION 04/03/21 16:45 04/07/21 05:54 Quetiapine Fumarate (SEROquel) 12.5 mg 0900,1300,1700 PO 04/06/21 09:00 04/07/21 17:25 I have reviewed the current psychotropics carefully including drug interactions. Risk benefit ratio favors no change other than as noted in my dictated progress note. Diagnosis: Problems: (1) Impulse control disorder, unspecified (2) Anxiety disorder, unspecified (3) Major depressive disorder with psychotic features (4) Intellectual disability GAMALIEL MALLOY MD Apr 07, 2021 22:00
[2021-04-08] MEDS: LEVOTHYROXINE 50 MCG TABLET PO SCH (05:30)
[2021-04-08 06:07] VITALS: BP 139/83
[2021-04-08] MEDS: MULTIVITAMIN with MINERAL TABLET. PO SCH (09:00)
[2021-04-08] MEDS: SENNOSIDES 8.6 MG TABLET PO SCH ×2 (09:00→20:36)
[2021-04-08] MEDS: ASCORBIC ACID 500 MG TABLET PO SCH (09:00)
[2021-04-08] MEDS: metOLazone 5 MG TABLET PO SCH (09:00)
[2021-04-08] MEDS: POTASSIUM CHLORIDE 20 MEQ TABLET.ER. PO SCH ×2 (09:00→20:36)
[2021-04-08] MEDS: POLYETHYLENE GLYCOL 3350 17 GM PACKET. PO SCH (09:00)
[2021-04-08] MEDS: ZINC SULFATE 220 MG CAPSULE. PO SCH (09:00)
[2021-04-08] MEDS: VALPROATE ACID 250 MG/5 ML ORAL SOLUTION PO SCH ×2 (09:00→20:36)
[2021-04-08] MEDS: SERTRALINE 50 MG TABLET. PO SCH (09:00)
[2021-04-08] MEDS: CETIRIZINE HCL 10 MG TABLET PO SCH (09:00)
[2021-04-08] MEDS: NYSTATIN TOPICAL POWDER 15GM BOTTLE. TP SCH ×2 (09:00→20:47)
[2021-04-08] MEDS: ASPIRIN CHEWABLE 81 MG TABLET. PO SCH (09:00)
[2021-04-08] MEDS: QUEtiapine 25 MG TABLET. PO SCH ×3 (09:00→17:03)
--- NOTE | 2021-04-08 10:11 | NUR ---
Pt present and visible on the unit. So far appropriate with her interactions, absent of aggression towards others. She has been observed wheeling self independent on the unit in her w/c. All meds crushed and mixed into pop, she took 2 small sips and refused to consume any more despite encouragement. Medications documented as refused. Plan of care continues, will pass to next shift. Addendum: 04/08/21 at 1415 by MEHRAN PATTERSON RN Afternoon medications administered SL
[2021-04-08 15:43] VITALS: BP 104/69
[2021-04-08] MEDS: traZODone 50 MG TABLET. PO SCH (20:35)
[2021-04-08] MEDS: MIRTAZAPINE 7.5 MG TABLET. PO SCH (20:35)
[2021-04-08] MEDS: PHENYTOIN SODIUM EXTENDED 100 MG CAPSULE PO SCH (20:35)
[2021-04-08] MEDS: MELATONIN 3 MG TABLET PO SCH (20:36)
--- NOTE | 2021-04-08 22:04 | PDOC ---
Exam Note: Brooks Note: Please also refer to the separate dictated note~for this date of service dictated separately.~Patient seen individually. Discussed the patient with Nursing staff reviewed the chart.~Reviewed interim history and current functioning. Reviewed vital signs,~Labs/ Radiology~and current medications noted below. Continue current treatment with the changes noted in the dictated addendum note Assessment: Vital Signs/I&O: Vital Signs Date Time Temp Pulse Resp B/P (MAP) Pulse Ox O2 Delivery O2 Flow Rate FiO2 04/08/21 15:43 97.6 93 20 104/69 (81) 98 Room Air 04/07/21 16:31 0.0 I & O 04/07/21 04/07/21 04/08/21 15:00 23:00 07:00 Intake Total 540 ml 60 ml Balance 540 ml 60 ml Current Medications: Meds: Current Medications Medications (Trade) Dose Ordered Sig/Kassidy Route PRN Reason Start Time Stop Time Status Last Admin Dose Admin Acetaminophen (Tylenol) 650 mg PRN Q6HRS PRN PO MILD PAIN / TEMP > 100.3'F 03/16/21 15:45 03/30/21 15:04 Multi-Ingredient Ointment (Analgesic [place]) 1 belinda PRN QID PRN TP MUSCLE PAIN 03/16/21 15:45 Al Hydroxide/Mg Hydroxide (Mylanta Plus Xs) 15 ml PRN AFTMEALHC PRN PO DYSPEPSIA 03/16/21 15:45 Magnesium Hydroxide (Milk Of Magnesia) 2,400 mg PRN QHS PRN PO CONSTIPATION 03/16/21 15:45 Acetaminophen (Tylenol) 650 mg PRN Q6HRS PRN PO pain or fever 03/16/21 16:00 UNV Aspirin (Aspirin Chewable) 81 mg DAILY PO 03/17/21 09:00 04/07/21 08:55 Levothyroxine Sodium (Synthroid) 50 mcg DAILY06 PO 03/17/21 06:00 04/08/21 05:30 Al Hydroxide/Mg Hydroxide (Mylanta Plus Xs) 15 ml PRN AFTMEALHC PRN PO DYSPEPSIA 03/16/21 16:00 UNV Magnesium Hydroxide (Milk Of Magnesia) 2,400 mg PRN QHS PRN PO CONSTIPATION 03/16/21 16:00 UNV Metolazone (Zaroxolyn) 5 mg QMWF@0900 PO 03/18/21 09:00 04/06/21 08:24 Mirtazapine (Remeron) 7.5 mg QHS PO 03/16/21 21:00 04/08/21 20:35 Phenytoin Sodium (Dilantin) 300 mg QHS PO 03/16/21 21:00 04/08/21 20:35 Potassium Chloride (Klor-Con) 20 meq BID PO 03/16/21 21:00 04/08/21 20:36 Sennosides (Senna) 8.6 mg BID PO 03/16/21 21:00 04/08/21 20:36 Non-Formulary Medication (Methyl Salicylate/ Menthol (Analgesic [place])) 1 belinda PRN QID PRN TP MUSCLE PAIN 03/16/21 16:00 UNV Multivitamins/ Calcium (Thera-M Plus) 1 tab DAILY PO 03/17/21 09:00 04/07/21 08:55 Polyethylene Glycol (miraLAX) 17 gm DAILY PO 03/17/21 09:00 04/03/21 09:17 Vitamin D (Vitamin D3) 50,000 unit WEEKLY PO 03/23/21 09:00 04/06/21 08:24 Cetirizine HCl (ZyrTEC) 10 mg DAILY PO 03/17/21 09:00 04/07/21 08:55 Sertraline HCl (Zoloft) 50 mg DAILY PO 03/17/21 09:00 03/18/21 18:34 DC 03/18/21 08:31 Denosumab (Prolia) 60 mg QMONTH SQ 04/15/21 09:00 UNV Phenytoin Sodium (Dilantin) 100 mg BID92 PO 03/17/21 09:00 Cancel Tramadol HCl (Ultram) 50 mg PRN BID PRN PO MOD-SEV PAIN 03/16/21 16:15 04/03/21 20:40 Trazodone HCl (Desyrel) 50 mg QHS PO 03/16/21 21:00 04/08/21 20:35 Ascorbic Acid (Vitamin C) 1,000 mg DAILY PO 03/17/21 09:00 04/07/21 08:55 Melatonin (Melatonin) 6 mg HS PO 03/16/21 21:00 04/08/21 20:36 Zinc Sulfate (Orazinc) 220 mg DAILY PO 03/17/21 09:00 04/07/21 08:55 Sertraline HCl (Zoloft) 75 mg DAILY PO 03/19/21 09:00 04/07/21 08:54 Olanzapine (ZyPREXA ZYDIS) 2.5 mg PRN Q2HR PRN PO PSYCHOSIS 03/19/21 20:15 04/07/21 15:55 Influenza Virus Vaccine Quadrival (Flulaval Quad Syringe) 0.5 ml ONCE ONCE VAX IM 03/25/21 09:00 03/25/21 09:01 DC 03/25/21 11:05 Gabapentin (Neurontin) 100 mg TID PO 03/24/21 21:00 03/26/21 11:42 DC 03/26/21 08:24 Gabapentin (Neurontin) 200 mg TID PO 03/26/21 14:00 03/29/21 16:00 DC 03/29/21 13:10 Valproic Acid (Depakene) 250 mg BID PO 03/29/21 21:00 04/02/21 10:15 DC 04/02/21 08:26 Valproic Acid (Depakene) 500 mg BID PO 04/02/21 21:00 04/08/21 20:36 Nystatin (Nystop) 1 belinda BID TP 04/03/21 21:00 04/08/21 20:47 Vitamin A/Vitamin D (Vitamin A & D Ointment) 1 belinda PRN Q1HR PRN TP SKIN PROTECTION 04/03/21 16:45 04/07/21 05:54 Quetiapine Fumarate (SEROquel) 12.5 mg 0900,1300,1700 PO 04/06/21 09:00 04/08/21 17:03 I have reviewed the current psychotropics carefully including drug interactions. Risk benefit ratio favors no change other than as noted in my dictated progress note. Diagnosis: Problems: (1) MDD (major depressive disorder) (2) Impulse control disorder, unspecified (3) Major depressive disorder with psychotic features (4) Intellectual disability (5) Anxiety disorder, unspecified GAMALIEL MALLOY MD Apr 08, 2021 22:04
--- NOTE | 2021-04-09 00:50 | NUR ---
Last evening pt propelled herself in the [facility]hews and day room. When meds offered whole or crushed pt nodded yes to taking them whole which she did with some prompting. After taking meds she called out during cares then went to sleep.
[2021-04-09] MEDS: LEVOTHYROXINE 50 MCG TABLET PO SCH (05:40)
[2021-04-09 06:29] VITALS: BP 151/47
--- NOTE | 2021-04-09 08:19 | PDOC ---
Exam Note: Brooks Note: This note is a late entry for 04/07/2021 covers elements not covered in my initial note. Subjective: The patient was seen individually in the evening of 04/07/2021 with Viviana NEWMAN, discussed and reviewed the chart. The patient slept 5 hours previous night. She had intermittent yelling more so than day before. She received Zyprexa at 3 p.m., then did better. Review of Systems: Ambulation impaired in wheelchair. No CV, , pulmonary, eye, ENT system symptoms on review. Reliability poor. Mental Status Exam: The patient is oriented to herself. Insight and judgment, recent and remote memory, attention and concentration, fund of knowledge is poor consistent with her diagnoses. Laboratory Data: Reviewed. Impression: Major depressive disorder with psychotic features. Anxiety disorder unspecified. Impulse control disorder unspecified. Intellectual disability. Plan: Continue current psychotropics unchanged. Assessment: Vital Signs/I&O: Vital Signs Date Time Temp Pulse Resp B/P (MAP) Pulse Ox O2 Delivery O2 Flow Rate FiO2 04/09/21 06:29 97.9 83 20 151/47 (81) 94 04/08/21 15:43 Room Air 04/07/21 16:31 0.0 I & O 04/08/21 04/08/21 04/09/21 15:00 23:00 07:00 Intake Total 390 ml 100 ml Balance 390 ml 100 ml Current Medications: Meds: Current Medications Medications (Trade) Dose Ordered Sig/Kassidy Route PRN Reason Start Time Stop Time Status Last Admin Dose Admin Acetaminophen (Tylenol) 650 mg PRN Q6HRS PRN PO MILD PAIN / TEMP > 100.3'F 03/16/21 15:45 03/30/21 15:04 Multi-Ingredient Ointment (Analgesic [place]) 1 belinda PRN QID PRN TP MUSCLE PAIN 03/16/21 15:45 Al Hydroxide/Mg Hydroxide (Mylanta Plus Xs) 15 ml PRN AFTMEALHC PRN PO DYSPEPSIA 03/16/21 15:45 Magnesium Hydroxide (Milk Of Magnesia) 2,400 mg PRN QHS PRN PO CONSTIPATION 03/16/21 15:45 Acetaminophen (Tylenol) 650 mg PRN Q6HRS PRN PO pain or fever 03/16/21 16:00 UNV Aspirin (Aspirin Chewable) 81 mg DAILY PO 03/17/21 09:00 04/07/21 08:55 Levothyroxine Sodium (Synthroid) 50 mcg DAILY06 PO 03/17/21 06:00 04/09/21 05:40 Al Hydroxide/Mg Hydroxide (Mylanta Plus Xs) 15 ml PRN AFTMEALHC PRN PO DYSPEPSIA 03/16/21 16:00 UNV Magnesium Hydroxide (Milk Of Magnesia) 2,400 mg PRN QHS PRN PO CONSTIPATION 03/16/21 16:00 UNV Metolazone (Zaroxolyn) 5 mg QMWF@0900 PO 03/18/21 09:00 04/06/21 08:24 Mirtazapine (Remeron) 7.5 mg QHS PO 03/16/21 21:00 04/08/21 20:35 Phenytoin Sodium (Dilantin) 300 mg QHS PO 03/16/21 21:00 04/08/21 20:35 Potassium Chloride (Klor-Con) 20 meq BID PO 03/16/21 21:00 04/08/21 20:36 Sennosides (Senna) 8.6 mg BID PO 03/16/21 21:00 04/08/21 20:36 Non-Formulary Medication (Methyl Salicylate/ Menthol (Analgesic [place])) 1 belinda PRN QID PRN TP MUSCLE PAIN 03/16/21 16:00 UNV Multivitamins/ Calcium (Thera-M Plus) 1 tab DAILY PO 03/17/21 09:00 04/07/21 08:55 Polyethylene Glycol (miraLAX) 17 gm DAILY PO 03/17/21 09:00 04/03/21 09:17 Vitamin D (Vitamin D3) 50,000 unit WEEKLY PO 03/23/21 09:00 04/06/21 08:24 Cetirizine HCl (ZyrTEC) 10 mg DAILY PO 03/17/21 09:00 04/07/21 08:55 Sertraline HCl (Zoloft) 50 mg DAILY PO 03/17/21 09:00 03/18/21 18:34 DC 03/18/21 08:31 Denosumab (Prolia) 60 mg QMONTH SQ 04/15/21 09:00 UNV Phenytoin Sodium (Dilantin) 100 mg BID92 PO 03/17/21 09:00 Cancel Tramadol HCl (Ultram) 50 mg PRN BID PRN PO MOD-SEV PAIN 03/16/21 16:15 04/03/21 20:40 Trazodone HCl (Desyrel) 50 mg QHS PO 03/16/21 21:00 04/08/21 20:35 Ascorbic Acid (Vitamin C) 1,000 mg DAILY PO 03/17/21 09:00 04/07/21 08:55 Melatonin (Melatonin) 6 mg HS PO 03/16/21 21:00 04/08/21 20:36 Zinc Sulfate (Orazinc) 220 mg DAILY PO 03/17/21 09:00 04/07/21 08:55 Sertraline HCl (Zoloft) 75 mg DAILY PO 03/19/21 09:00 04/07/21 08:54 Olanzapine (ZyPREXA ZYDIS) 2.5 mg PRN Q2HR PRN PO PSYCHOSIS 03/19/21 20:15 04/07/21 15:55 Influenza Virus Vaccine Quadrival (Flulaval Quad [id number] Syringe) 0.5 ml ONCE ONCE VAX IM 03/25/21 09:00 03/25/21 09:01 DC 03/25/21 11:05 Gabapentin (Neurontin) 100 mg TID PO 03/24/21 21:00 03/26/21 11:42 DC 03/26/21 08:24 Gabapentin (Neurontin) 200 mg TID PO 03/26/21 14:00 03/29/21 16:00 DC 03/29/21 13:10 Valproic Acid (Depakene) 250 mg BID PO 03/29/21 21:00 04/02/21 10:15 DC 04/02/21 08:26 Valproic Acid (Depakene) 500 mg BID PO 04/02/21 21:00 04/08/21 20:36 Nystatin (Nystop) 1 belinda BID TP 04/03/21 21:00 04/08/21 20:47 Vitamin A/Vitamin D (Vitamin A & D Ointment) 1 belinda PRN Q1HR PRN TP SKIN PROTECTION 04/03/21 16:45 04/07/21 05:54 Quetiapine Fumarate (SEROquel) 12.5 mg 0900,1300,1700 PO 04/06/21 09:00 04/09/21 01:06 DC 04/08/21 17:03 Quetiapine Fumarate (SEROquel) 12.5 mg QID@0900,1200,1500,1700 PO 04/09/21 09:00 I have reviewed the current psychotropics carefully including drug interactions. Risk benefit ratio favors no change other than as noted in my dictated progress note. Diagnosis: Problems: (1) Major depressive disorder with psychotic features (2) Intellectual disability (3) Anxiety disorder, unspecified (4) Impulse control disorder, unspecified GAMALIEL MALLOY MD Apr 09, 2021 08:19
--- NOTE | 2021-04-09 08:44 | PDOC ---
Exam Note: Brooks Note: This note is a late entry for 04/08/2021 covers elements not covered in my initial note. Subjective: The patient was seen individually in the evening of 04/08/2021 with Dale NEWMAN, discussed and reviewed the chart. The patient slept 8 hours previous night. She has been agitated with ongoing mood lability, screaming at times, refuses meds, have to be syringed at times. Review of Systems: Ambulation impaired in wheelchair. No CV, , pulmonary, eye, ENT system symptoms on review. Reliability poor. Mental Status Exam: The patient is oriented to herself and situation. Speech coherent, rapid at times, anxious. Abstraction fair. Computation impaired. Language function intact. Mood and affect remains anxious, labile. Laboratory Data: Reviewed. Impression: Major depressive disorder with psychotic features. Anxiety disorder unspecified. Impulse control disorder unspecified. Intellectual disability. Plan: Currently the patient is on Seroquel 12.5 mg t.i.d. She continues to have marked mood vacillations, agitation as noted. We will increase Seroquel to 12.5 mg 9 a.m, noon, 3 p.m. and 5 p.m. Continue rest psychotropics unchanged. Valproic acid level is therapeutic at 57. Assessment: Vital Signs/I&O: Vital Signs Date Time Temp Pulse Resp B/P (MAP) Pulse Ox O2 Delivery O2 Flow Rate FiO2 04/09/21 06:29 97.9 83 20 151/47 (81) 94 04/08/21 15:43 Room Air 04/07/21 16:31 0.0 I & O 04/08/21 04/08/21 04/09/21 15:00 23:00 07:00 Intake Total 390 ml 100 ml Balance 390 ml 100 ml Current Medications: Meds: Current Medications Medications (Trade) Dose Ordered Sig/Kassidy Route PRN Reason Start Time Stop Time Status Last Admin Dose Admin Acetaminophen (Tylenol) 650 mg PRN Q6HRS PRN PO MILD PAIN / TEMP > 100.3'F 03/16/21 15:45 03/30/21 15:04 Multi-Ingredient Ointment (Analgesic [place]) 1 belinda PRN QID PRN TP MUSCLE PAIN 03/16/21 15:45 Al Hydroxide/Mg Hydroxide (Mylanta Plus Xs) 15 ml PRN AFTMEALHC PRN PO DYSPEPSIA 03/16/21 15:45 Magnesium Hydroxide (Milk Of Magnesia) 2,400 mg PRN QHS PRN PO CONSTIPATION 03/16/21 15:45 Acetaminophen (Tylenol) 650 mg PRN Q6HRS PRN PO pain or fever 03/16/21 16:00 UNV Aspirin (Aspirin Chewable) 81 mg DAILY PO 03/17/21 09:00 04/07/21 08:55 Levothyroxine Sodium (Synthroid) 50 mcg DAILY06 PO 03/17/21 06:00 04/09/21 05:40 Al Hydroxide/Mg Hydroxide (Mylanta Plus Xs) 15 ml PRN AFTMEALHC PRN PO DYSPEPSIA 03/16/21 16:00 UNV Magnesium Hydroxide (Milk Of Magnesia) 2,400 mg PRN QHS PRN PO CONSTIPATION 03/16/21 16:00 UNV Metolazone (Zaroxolyn) 5 mg QMWF@0900 PO 03/18/21 09:00 04/06/21 08:24 Mirtazapine (Remeron) 7.5 mg QHS PO 03/16/21 21:00 04/08/21 20:35 Phenytoin Sodium (Dilantin) 300 mg QHS PO 03/16/21 21:00 04/08/21 20:35 Potassium Chloride (Klor-Con) 20 meq BID PO 03/16/21 21:00 04/08/21 20:36 Sennosides (Senna) 8.6 mg BID PO 03/16/21 21:00 04/08/21 20:36 Non-Formulary Medication (Methyl Salicylate/ Menthol (Analgesic [place])) 1 belnida PRN QID PRN TP MUSCLE PAIN 03/16/21 16:00 UNV Multivitamins/ Calcium (Thera-M Plus) 1 tab DAILY PO 03/17/21 09:00 04/07/21 08:55 Polyethylene Glycol (miraLAX) 17 gm DAILY PO 03/17/21 09:00 04/03/21 09:17 Vitamin D (Vitamin D3) 50,000 unit WEEKLY PO 03/23/21 09:00 04/06/21 08:24 Cetirizine HCl (ZyrTEC) 10 mg DAILY PO 03/17/21 09:00 04/07/21 08:55 Sertraline HCl (Zoloft) 50 mg DAILY PO 03/17/21 09:00 03/18/21 18:34 DC 03/18/21 08:31 Denosumab (Prolia) 60 mg QMONTH SQ 04/15/21 09:00 UNV Phenytoin Sodium (Dilantin) 100 mg BID92 PO 03/17/21 09:00 Cancel Tramadol HCl (Ultram) 50 mg PRN BID PRN PO MOD-SEV PAIN 03/16/21 16:15 04/03/21 20:40 Trazodone HCl (Desyrel) 50 mg QHS PO 03/16/21 21:00 04/08/21 20:35 Ascorbic Acid (Vitamin C) 1,000 mg DAILY PO 03/17/21 09:00 04/07/21 08:55 Melatonin (Melatonin) 6 mg HS PO 03/16/21 21:00 04/08/21 20:36 Zinc Sulfate (Orazinc) 220 mg DAILY PO 03/17/21 09:00 04/07/21 08:55 Sertraline HCl (Zoloft) 75 mg DAILY PO 03/19/21 09:00 04/07/21 08:54 Olanzapine (ZyPREXA ZYDIS) 2.5 mg PRN Q2HR PRN PO PSYCHOSIS 03/19/21 20:15 04/07/21 15:55 Influenza Virus Vaccine Quadrival (Flulaval Quad [id number] Syringe) 0.5 ml ONCE ONCE VAX IM 03/25/21 09:00 03/25/21 09:01 DC 03/25/21 11:05 Gabapentin (Neurontin) 100 mg TID PO 03/24/21 21:00 03/26/21 11:42 DC 03/26/21 08:24 Gabapentin (Neurontin) 200 mg TID PO 03/26/21 14:00 03/29/21 16:00 DC 03/29/21 13:10 Valproic Acid (Depakene) 250 mg BID PO 03/29/21 21:00 04/02/21 10:15 DC 04/02/21 08:26 Valproic Acid (Depakene) 500 mg BID PO 04/02/21 21:00 04/08/21 20:36 Nystatin (Nystop) 1 belinda BID TP 04/03/21 21:00 04/08/21 20:47 Vitamin A/Vitamin D (Vitamin A & D Ointment) 1 belinda PRN Q1HR PRN TP SKIN PROTECTION 04/03/21 16:45 04/07/21 05:54 Quetiapine Fumarate (SEROquel) 12.5 mg 0900,1300,1700 PO 04/06/21 09:00 04/09/21 01:06 DC 04/08/21 17:03 Quetiapine Fumarate (SEROquel) 12.5 mg QID@0900,1200,1500,1700 PO 04/09/21 09:00 I have reviewed the current psychotropics carefully including drug interactions. Risk benefit ratio favors no change other than as noted in my dictated progress note. Diagnosis: Problems: (1) Impulse control disorder, unspecified (2) Anxiety disorder, unspecified (3) Major depressive disorder with psychotic features (4) Intellectual disability GAMALIEL MALLOY MD Apr 09, 2021 08:44
[2021-04-09] MEDS: ASCORBIC ACID 500 MG TABLET PO SCH (09:00)
[2021-04-09] MEDS: MULTIVITAMIN with MINERAL TABLET. PO SCH (09:00)
[2021-04-09] MEDS: QUEtiapine 25 MG TABLET. PO SCH ×4 (09:00→17:00)
[2021-04-09] MEDS: VALPROATE ACID 250 MG/5 ML ORAL SOLUTION PO SCH ×2 (09:00→20:05)
[2021-04-09] MEDS: SERTRALINE 50 MG TABLET. PO SCH (09:00)
[2021-04-09] MEDS: POTASSIUM CHLORIDE 20 MEQ TABLET.ER. PO SCH ×2 (09:00→20:06)
[2021-04-09] MEDS: CETIRIZINE HCL 10 MG TABLET PO SCH (09:00)
[2021-04-09] MEDS: SENNOSIDES 8.6 MG TABLET PO SCH ×2 (09:00→20:05)
[2021-04-09] MEDS: ZINC SULFATE 220 MG CAPSULE. PO SCH (09:00)
[2021-04-09] MEDS: ASPIRIN CHEWABLE 81 MG TABLET. PO SCH (09:00)
[2021-04-09] MEDS: NYSTATIN TOPICAL POWDER 15GM BOTTLE. TP SCH ×2 (09:00→20:07)
[2021-04-09] MEDS: POLYETHYLENE GLYCOL 3350 17 GM PACKET. PO SCH (09:00)
--- NOTE | 2021-04-09 11:11 | NUR ---
WEEKLY ACTIVITY THERAPY NOTE Date of Admission:03/16/21 Date of AT Assessment: 03/18 Precipitating behaviors that initiated intake and admission: PA towards peers, chasing peers in mathews, yelling & screaming, refusing medications. Goal aimed: increase stress management and relaxation skills Initial Goal: Pt will participate in at least three individual or group Activity Therapy sessions before discharge Goal repeated 04/02 Weekly progress towards goal: did not achieve Group participation level: no participation Weekly highlights: no participation Behaviors observed: wandering, pleasant, calm Plan: no change to goal Beneficial adaptations: direct prompting
--- NOTE | 2021-04-09 11:57 | NUR ---
Pt slept in through breakfast. She appeared to be sound asleep, no distress. Breathing even equal and unlabored, PAINAD 0.
--- NOTE | 2021-04-09 12:40 | NUR ---
Pt has been present and visible on the unit. She has not interacted much with others so far this shift, but her behaviors have been appropriate. Pt is non-compliant with medication and required SL administration. Pt non-verbal, A&O to self only. Absent of verbal/physical aggression. Plan of care continues, will pass to next shift.
--- NOTE | 2021-04-09 14:01 | TX PLAN ---
Interdisciplinary Tx Plan Admission Information Mar 16, 2021 at 15:10 Legal Status (on Admission): Voluntary DPOA/Guardian Name: Fariba Odonnell-Sister/Guardian Contact Other Contact Name: Monica Omalley (DNOTE) Other Contact Verified Code Status: Full Code Allergies: Coded Allergies: No Known Drug Allergies (Unverified , 06/22/20) Diagnoses Primary Diagnosis: (1) Intellectual disability (2) Impulse control disorder, unspecified (3) Anxiety disorder, unspecified (4) Major neurocognitive disorder, due to vascular disease, with behavioral disturbance, mild (5) Major depressive disorder with psychotic features Reasons for Admission: Aggressive, Agitated, Sig. Change Appetite, Combative, Confusion/Disoriented, Poor impulse control Problem in Patient's Words: Per sister, "Cate Shukla struggles with change and the whole covid status has been a struggle. At her facility they had been back on quarantine and just recently got out of that. She has been hitting others and I have talked with her about that. With Cate Shukla's intellectual disability, she only understands so much." Additional Admission Comments: None noted at this time. Problems Active Problems: Aggressive, combative, agitated, not eating, poor impulse control Inactive Problems: None noted at this time. Pt Strengths/Limitations Ability for [place]: Poor Cognitive Functioning/Ability: Poor Communication Skills/Ability: Poor Financial Resources: Fair Insight/Judgement: Poor Intellectual Ability: Poor Physical Health: Fair Social Skills: Poor Stability in Family: Good Stability in School/Work: Fair Verbal Skills: Poor Discharge Criteria Discharge Criteria: No need for close observ., Adequate arrangements @DC, Verbal commit med comply, Improved behavior, Improved mood/thought Other Discharge Comments: None noted at this time. Preliminary Discharge Plan Preliminary DC Plan: Current Living Arrange. Special Precautions Special Precautions: Agitation/Assault Fall Risk: Moderate Other Precautions (specify): Pt uses WC Initial D/C Plan Plan is for pt to return to [facility]. Identified Discharge Needs: Pt to continue to be supported by services and resources through [facility] and her family. Currently Utilized Resources Currently Utilized Resources/P: PCP-Dr. Gerardo Rincon at [facility] Sister/Guardian-Fariba Odonnell Referrals Community Resources: None noted at this time. Identified Problems/Hx/Goals Objectives/Short-Term Goals Short Term Goals: Control abnormal behavior, Dec. Aggression, Dec. Outbursts, Improved Social Skills, Medication Stabilization, Monitor Med Effects, Prevent Deterioration Short Term Goals in Patient's: Would like to get her behaviors such as hitting under control. Interventions/Frequency Staff Interventions/Frequency&: Psychiatry to assess pt three times per week for medication management. Nursing to assess behaviors, monitor medications, and complete 15 minute checks daily. Social work to see pt at least two times weekly to aid in return to placement. Activities to encourage pt to participate in group activities daily. 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 She preferred wire stripping over shredding papers as she realized that she was paid more for stripping rubber. 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 Cate Shukla attended till she was 17y.o. Reportedly, Cate Shukla learned how to tell time by looking a the [employer] years ago and would be able to associate when certain television shows would come on. Community Follow-up PCP Community Provider/Family Inpu: Pt sister/guardian aware of pt hospitalization and is available for further information as needed. Treatment Plan Explained Patient/Communications Superintendent had this treatment plan explained to him/her as indicated by the signature below and has been given the opportunity to ask questions and make suggestions: Date: Patient/Communications Superintendent Signature: Status Update Update Pt eats between 30-50% of her meals and is currently averaging 6 hours of sleep per night. Pt behaviors have changed very little. At times she is medication compliant crushed in a drink and other times she is not and meds have to be orally syringed. Staff have not detected a pattern to her compliance/non-compliance. It was questioned if she might be more med compliant with male staff, so this will be assessed. Pt VPA is therapeutic at 57. She has started on Seroquel to help with mood. Pt will discharge back to [facility] once stable. KAMLESH 04/15/21. MIGUEL COVINGTON Apr 09, 2021 14:01
[2021-04-09 16:54] VITALS: BP 136/84
[2021-04-09 16:56] VITALS: BP 136/84
[2021-04-09] MEDS: MELATONIN 3 MG TABLET PO SCH (20:05)
[2021-04-09] MEDS: MIRTAZAPINE 7.5 MG TABLET. PO SCH (20:06)
[2021-04-09] MEDS: traZODone 50 MG TABLET. PO SCH (20:06)
[2021-04-09] MEDS: PHENYTOIN SODIUM EXTENDED 100 MG CAPSULE PO SCH (20:06)
--- NOTE | 2021-04-09 22:02 | PDOC ---
Exam Note: Brooks Note: Please also refer to the separate dictated note~for this date of service dictated separately.~Patient seen individually. Discussed the patient with Nursing staff reviewed the chart.~Reviewed interim history and current functioning. Reviewed vital signs,~Labs/ Radiology~and current medications noted below. Continue current treatment with the changes noted in the dictated addendum note Assessment: Vital Signs/I&O: Vital Signs Date Time Temp Pulse Resp B/P (MAP) Pulse Ox O2 Delivery O2 Flow Rate FiO2 04/09/21 16:56 97.8 89 18 136/84 (101) 95 Room Air 04/07/21 16:31 0.0 I & O 04/08/21 04/08/21 04/09/21 15:00 23:00 07:00 Intake Total 390 ml 100 ml Balance 390 ml 100 ml Current Medications: Meds: Current Medications Medications (Trade) Dose Ordered Sig/Kassidy Route PRN Reason Start Time Stop Time Status Last Admin Dose Admin Acetaminophen (Tylenol) 650 mg PRN Q6HRS PRN PO MILD PAIN / TEMP > 100.3'F 03/16/21 15:45 03/30/21 15:04 Multi-Ingredient Ointment (Analgesic [place]) 1 belinda PRN QID PRN TP MUSCLE PAIN 03/16/21 15:45 Al Hydroxide/Mg Hydroxide (Mylanta Plus Xs) 15 ml PRN AFTMEALHC PRN PO DYSPEPSIA 03/16/21 15:45 Magnesium Hydroxide (Milk Of Magnesia) 2,400 mg PRN QHS PRN PO CONSTIPATION 03/16/21 15:45 Acetaminophen (Tylenol) 650 mg PRN Q6HRS PRN PO pain or fever 03/16/21 16:00 UNV Aspirin (Aspirin Chewable) 81 mg DAILY PO 03/17/21 09:00 04/09/21 09:00 Levothyroxine Sodium (Synthroid) 50 mcg DAILY06 PO 03/17/21 06:00 04/09/21 05:40 Al Hydroxide/Mg Hydroxide (Mylanta Plus Xs) 15 ml PRN AFTMEALHC PRN PO DYSPEPSIA 03/16/21 16:00 UNV Magnesium Hydroxide (Milk Of Magnesia) 2,400 mg PRN QHS PRN PO CONSTIPATION 03/16/21 16:00 UNV Metolazone (Zaroxolyn) 5 mg QMWF@0900 PO 03/18/21 09:00 04/06/21 08:24 Mirtazapine (Remeron) 7.5 mg QHS PO 03/16/21 21:00 04/09/21 20:06 Phenytoin Sodium (Dilantin) 300 mg QHS PO 03/16/21 21:00 04/09/21 20:06 Potassium Chloride (Klor-Con) 20 meq BID PO 03/16/21 21:00 04/09/21 20:06 Sennosides (Senna) 8.6 mg BID PO 03/16/21 21:00 04/09/21 20:05 Non-Formulary Medication (Methyl Salicylate/ Menthol (Analgesic [place])) 1 belinda PRN QID PRN TP MUSCLE PAIN 03/16/21 16:00 UNV Multivitamins/ Calcium (Thera-M Plus) 1 tab DAILY PO 03/17/21 09:00 04/07/21 08:55 Polyethylene Glycol (miraLAX) 17 gm DAILY PO 03/17/21 09:00 04/03/21 09:17 Vitamin D (Vitamin D3) 50,000 unit WEEKLY PO 03/23/21 09:00 04/06/21 08:24 Cetirizine HCl (ZyrTEC) 10 mg DAILY PO 03/17/21 09:00 04/07/21 08:55 Sertraline HCl (Zoloft) 50 mg DAILY PO 03/17/21 09:00 03/18/21 18:34 DC 03/18/21 08:31 Denosumab (Prolia) 60 mg QMONTH SQ 04/15/21 09:00 UNV Phenytoin Sodium (Dilantin) 100 mg BID92 PO 03/17/21 09:00 Cancel Tramadol HCl (Ultram) 50 mg PRN BID PRN PO MOD-SEV PAIN 03/16/21 16:15 04/03/21 20:40 Trazodone HCl (Desyrel) 50 mg QHS PO 03/16/21 21:00 04/09/21 20:06 Ascorbic Acid (Vitamin C) 1,000 mg DAILY PO 03/17/21 09:00 04/07/21 08:55 Melatonin (Melatonin) 6 mg HS PO 03/16/21 21:00 04/09/21 20:05 Zinc Sulfate (Orazinc) 220 mg DAILY PO 03/17/21 09:00 04/07/21 08:55 Sertraline HCl (Zoloft) 75 mg DAILY PO 03/19/21 09:00 04/09/21 09:00 Olanzapine (ZyPREXA ZYDIS) 2.5 mg PRN Q2HR PRN PO PSYCHOSIS 03/19/21 20:15 04/07/21 15:55 Influenza Virus Vaccine Quadrival (Flulaval Quad [id number] Syringe) 0.5 ml ONCE ONCE VAX IM 03/25/21 09:00 03/25/21 09:01 DC 03/25/21 11:05 Gabapentin (Neurontin) 100 mg TID PO 03/24/21 21:00 03/26/21 11:42 DC 03/26/21 08:24 Gabapentin (Neurontin) 200 mg TID PO 03/26/21 14:00 03/29/21 16:00 DC 03/29/21 13:10 Valproic Acid (Depakene) 250 mg BID PO 03/29/21 21:00 04/02/21 10:15 DC 04/02/21 08:26 Valproic Acid (Depakene) 500 mg BID PO 04/02/21 21:00 04/09/21 20:05 Nystatin (Nystop) 1 bleinda BID TP 04/03/21 21:00 04/09/21 20:07 Vitamin A/Vitamin D (Vitamin A & D Ointment) 1 belinda PRN Q1HR PRN TP SKIN PROTECTION 04/03/21 16:45 04/07/21 05:54 Quetiapine Fumarate (SEROquel) 12.5 mg 0900,1300,1700 PO 04/06/21 09:00 04/09/21 01:06 DC 04/08/21 17:03 Quetiapine Fumarate (SEROquel) 12.5 mg QID@0900,1200,1500,1700 PO 04/09/21 09:00 04/09/21 17:00 Current Medications Medications (Trade) Dose Ordered Sig/Kassidy Route PRN Reason Start Time Stop Time Status Last Admin Dose Admin Quetiapine Fumarate (SEROquel) 12.5 mg QID@0900,1200,1500,1700 PO 04/09/21 09:00 04/09/21 17:00 I have reviewed the current psychotropics carefully including drug interactions. Risk benefit ratio favors no change other than as noted in my dictated progress note. Diagnosis: Problems: (1) Impulse control disorder, unspecified (2) Anxiety disorder, unspecified (3) Dementia, vascular, with depression (4) Dementia, vascular, with delusions (5) Dementia in Alzheimer's disease with depression (6) Dementia in Alzheimer's disease with delusions (7) Major neurocognitive disorder, due to vascular disease, with behavioral disturbance, mild (8) Major depressive disorder with psychotic features (9) Intellectual disability GAMALIEL MALLOY MD Apr 09, 2021 22:02
--- NOTE | 2021-04-10 03:20 | NUR ---
Last evening pt rolled self in mathews way and took some meds whole then remainder were crushed. She has been fairly cooperative and yells some with cares. After going to bed she yelled off and on for awhile but would not verbalize what she wanted. After awhile she fell asleep and continues to sleep.
[2021-04-10] MEDS: LEVOTHYROXINE 50 MCG TABLET PO SCH (05:49)
[2021-04-10 06:33] VITALS: BP 140/65
[2021-04-10] MEDS: SERTRALINE 50 MG TABLET. PO SCH (08:17)
[2021-04-10] MEDS: ZINC SULFATE 220 MG CAPSULE. PO SCH (08:17)
[2021-04-10] MEDS: QUEtiapine 25 MG TABLET. PO SCH ×4 (08:17→16:09)
[2021-04-10] MEDS: ASCORBIC ACID 500 MG TABLET PO SCH (08:17)
[2021-04-10] MEDS: POLYETHYLENE GLYCOL 3350 17 GM PACKET. PO SCH (08:18)
[2021-04-10] MEDS: VALPROATE ACID 250 MG/5 ML ORAL SOLUTION PO SCH ×2 (08:18→20:21)
[2021-04-10] MEDS: POTASSIUM CHLORIDE 20 MEQ TABLET.ER. PO SCH ×2 (08:18→20:22)
[2021-04-10] MEDS: MULTIVITAMIN with MINERAL TABLET. PO SCH (08:18)
[2021-04-10] MEDS: SENNOSIDES 8.6 MG TABLET PO SCH ×2 (08:18→20:21)
[2021-04-10] MEDS: metOLazone 5 MG TABLET PO SCH (08:18)
[2021-04-10] MEDS: ASPIRIN CHEWABLE 81 MG TABLET. PO SCH (08:18)
[2021-04-10] MEDS: CETIRIZINE HCL 10 MG TABLET PO SCH (08:18)
[2021-04-10] MEDS: NYSTATIN TOPICAL POWDER 15GM BOTTLE. TP SCH ×2 (09:00→20:23)
--- NOTE | 2021-04-10 10:18 | NUR ---
RN day shift nurse: pt presents with pleasant mood/affect. pt is approachable and responds well to positive reinforcement. pt's does not speak clearly and makes noises and grunts to try and communicate. pt took medications in chocolate ensure this morning. pt is noted to spend her time wheeling herself in the hallways. pt is also noted to spend time with peers in the day room. pt slept 8.25 hours last night. pt's vitals are WNL. will continue to monitor.
--- NOTE | 2021-04-10 13:05 | NUR ---
FIORDALIZA called pt sister/DPOA, Fariba, to provide update. FIORDALIZA informed that another does of Seroquel has been added to pt medications. FIORDALIZA informed Fariba that pt may be showing some improvements with compliance and taking medications, but will continue to be monitored. FIORDALIZA attempted to contact Monica at pt facility to provide update, as well. Monica was not in the office at time of call, but will be back Tuesday. FIORDALIZA will call Fariba and Monica again next week for further follow-up.
[2021-04-10 16:28] VITALS: BP 92/58
[2021-04-10] MEDS: PHENYTOIN SODIUM EXTENDED 100 MG CAPSULE PO SCH (20:22)
[2021-04-10] MEDS: MELATONIN 3 MG TABLET PO SCH (20:23)
[2021-04-10] MEDS: traZODone 50 MG TABLET. PO SCH (20:23)
[2021-04-10] MEDS: MIRTAZAPINE 7.5 MG TABLET. PO SCH (20:23)
--- NOTE | 2021-04-10 22:00 | PDOC ---
Exam Note: Brooks Note: Please also refer to the separate dictated note~for this date of service dictated separately.~Patient seen individually. Discussed the patient with Nursing staff reviewed the chart.~Reviewed interim history and current functioning. Reviewed vital signs,~Labs/ Radiology~and current medications noted below. Continue current treatment with the changes noted in the dictated addendum note Assessment: Vital Signs/I&O: Vital Signs Date Time Temp Pulse Resp B/P (MAP) Pulse Ox O2 Delivery O2 Flow Rate FiO2 04/10/21 16:28 97.2 84 19 92/58 (69) 97 04/09/21 16:56 Room Air 04/07/21 16:31 0.0 I & O 04/09/21 04/09/21 04/10/21 15:00 23:00 07:00 Intake Total 240 ml 200 ml Balance 240 ml 200 ml Current Medications: Meds: Current Medications Medications (Trade) Dose Ordered Sig/Kassidy Route PRN Reason Start Time Stop Time Status Last Admin Dose Admin Acetaminophen (Tylenol) 650 mg PRN Q6HRS PRN PO MILD PAIN / TEMP > 100.3'F 03/16/21 15:45 03/30/21 15:04 Multi-Ingredient Ointment (Analgesic [place]) 1 belinda PRN QID PRN TP MUSCLE PAIN 03/16/21 15:45 Al Hydroxide/Mg Hydroxide (Mylanta Plus Xs) 15 ml PRN AFTMEALHC PRN PO DYSPEPSIA 03/16/21 15:45 Magnesium Hydroxide (Milk Of Magnesia) 2,400 mg PRN QHS PRN PO CONSTIPATION 03/16/21 15:45 Acetaminophen (Tylenol) 650 mg PRN Q6HRS PRN PO pain or fever 03/16/21 16:00 UNV Aspirin (Aspirin Chewable) 81 mg DAILY PO 03/17/21 09:00 04/10/21 08:18 Levothyroxine Sodium (Synthroid) 50 mcg DAILY06 PO 03/17/21 06:00 04/10/21 05:49 Al Hydroxide/Mg Hydroxide (Mylanta Plus Xs) 15 ml PRN AFTMEALHC PRN PO DYSPEPSIA 03/16/21 16:00 UNV Magnesium Hydroxide (Milk Of Magnesia) 2,400 mg PRN QHS PRN PO CONSTIPATION 03/16/21 16:00 UNV Metolazone (Zaroxolyn) 5 mg QMWF@0900 PO 03/18/21 09:00 04/10/21 08:18 Mirtazapine (Remeron) 7.5 mg QHS PO 03/16/21 21:00 04/10/21 20:23 Phenytoin Sodium (Dilantin) 300 mg QHS PO 03/16/21 21:00 04/10/21 20:22 Potassium Chloride (Klor-Con) 20 meq BID PO 03/16/21 21:00 04/10/21 20:22 Sennosides (Senna) 8.6 mg BID PO 03/16/21 21:00 04/10/21 20:21 Non-Formulary Medication (Methyl Salicylate/ Menthol (Analgesic [place])) 1 belinda PRN QID PRN TP MUSCLE PAIN 03/16/21 16:00 UNV Multivitamins/ Calcium (Thera-M Plus) 1 tab DAILY PO 03/17/21 09:00 04/10/21 08:18 Polyethylene Glycol (miraLAX) 17 gm DAILY PO 03/17/21 09:00 04/10/21 08:18 Vitamin D (Vitamin D3) 50,000 unit WEEKLY PO 03/23/21 09:00 04/06/21 08:24 Cetirizine HCl (ZyrTEC) 10 mg DAILY PO 03/17/21 09:00 04/10/21 08:18 Sertraline HCl (Zoloft) 50 mg DAILY PO 03/17/21 09:00 03/18/21 18:34 DC 03/18/21 08:31 Denosumab (Prolia) 60 mg QMONTH SQ 04/15/21 09:00 UNV Phenytoin Sodium (Dilantin) 100 mg BID92 PO 03/17/21 09:00 Cancel Tramadol HCl (Ultram) 50 mg PRN BID PRN PO MOD-SEV PAIN 03/16/21 16:15 04/03/21 20:40 Trazodone HCl (Desyrel) 50 mg QHS PO 03/16/21 21:00 04/10/21 20:23 Ascorbic Acid (Vitamin C) 1,000 mg DAILY PO 03/17/21 09:00 04/10/21 08:17 Melatonin (Melatonin) 6 mg HS PO 03/16/21 21:00 04/10/21 20:23 Zinc Sulfate (Orazinc) 220 mg DAILY PO 03/17/21 09:00 04/10/21 08:17 Sertraline HCl (Zoloft) 75 mg DAILY PO 03/19/21 09:00 04/10/21 08:17 Olanzapine (ZyPREXA ZYDIS) 2.5 mg PRN Q2HR PRN PO PSYCHOSIS 03/19/21 20:15 04/07/21 15:55 Influenza Virus Vaccine Quadrival (Flulaval Quad [id number] Syringe) 0.5 ml ONCE ONCE VAX IM 03/25/21 09:00 03/25/21 09:01 DC 03/25/21 11:05 Gabapentin (Neurontin) 100 mg TID PO 03/24/21 21:00 03/26/21 11:42 DC 03/26/21 08:24 Gabapentin (Neurontin) 200 mg TID PO 03/26/21 14:00 03/29/21 16:00 DC 03/29/21 13:10 Valproic Acid (Depakene) 250 mg BID PO 03/29/21 21:00 04/02/21 10:15 DC 04/02/21 08:26 Valproic Acid (Depakene) 500 mg BID PO 04/02/21 21:00 04/10/21 20:21 Nystatin (Nystop) 1 belinda BID TP 04/03/21 21:00 04/10/21 20:23 Vitamin A/Vitamin D (Vitamin A & D Ointment) 1 belinda PRN Q1HR PRN TP SKIN PROTECTION 04/03/21 16:45 04/07/21 05:54 Quetiapine Fumarate (SEROquel) 12.5 mg 0900,1300,1700 PO 04/06/21 09:00 04/09/21 01:06 DC 04/08/21 17:03 Quetiapine Fumarate (SEROquel) 12.5 mg QID@0900,1200,1500,1700 PO 04/09/21 09:00 04/10/21 16:09 I have reviewed the current psychotropics carefully including drug interactions. Risk benefit ratio favors no change other than as noted in my dictated progress note. Diagnosis: Problems: (1) Impulse control disorder, unspecified (2) Anxiety disorder, unspecified (3) Major depressive disorder with psychotic features (4) Intellectual disability GAMALIEL MALLOY MD Apr 10, 2021 22:00
[2021-04-11] MEDS: traMADol 50 MG TABLET PO PRN (00:57)
--- NOTE | 2021-04-11 02:46 | NUR ---
Patient is in her bed on assumption of care, awake in bed. She is mostly quiet, yelling out intermittently. She again refused assessments and medications. Incontinent of bowel x2, agitated and resistive with cares. Patient appeared to be experiencing discomfort a short time later, d/t grunting and facial expressions. PRN Tramadol given at 0100 via oral syringe. Patient appears to be sleeping comfortably at present time. Will continue to monitor.
[2021-04-11] MEDS: LEVOTHYROXINE 50 MCG TABLET PO SCH (05:01)
[2021-04-11 06:40] VITALS: BP 126/67
[2021-04-11] MEDS: SERTRALINE 50 MG TABLET. PO SCH (08:45)
[2021-04-11] MEDS: VALPROATE ACID 250 MG/5 ML ORAL SOLUTION PO SCH ×2 (08:45→21:05)
[2021-04-11] MEDS: CETIRIZINE HCL 10 MG TABLET PO SCH (08:45)
[2021-04-11] MEDS: MULTIVITAMIN with MINERAL TABLET. PO SCH (08:45)
[2021-04-11] MEDS: ASPIRIN CHEWABLE 81 MG TABLET. PO SCH (08:45)
[2021-04-11] MEDS: NYSTATIN TOPICAL POWDER 15GM BOTTLE. TP SCH ×2 (08:46→21:02)
[2021-04-11] MEDS: POTASSIUM CHLORIDE 20 MEQ TABLET.ER. PO SCH ×2 (08:46→21:03)
[2021-04-11] MEDS: ZINC SULFATE 220 MG CAPSULE. PO SCH (08:46)
[2021-04-11] MEDS: QUEtiapine 25 MG TABLET. PO SCH ×4 (08:46→17:00)
[2021-04-11] MEDS: ASCORBIC ACID 500 MG TABLET PO SCH (08:46)
[2021-04-11] MEDS: POLYETHYLENE GLYCOL 3350 17 GM PACKET. PO SCH (08:46)
[2021-04-11] MEDS: SENNOSIDES 8.6 MG TABLET PO SCH ×2 (08:46→21:00)
[2021-04-11 15:45] VITALS: BP 136/71
--- NOTE | 2021-04-11 17:31 | NUR ---
Pt up in wc for meals. Has been restless at times but compliant. Took med in cola today but refused to take it at supper.
[2021-04-11] MEDS: PHENYTOIN SODIUM EXTENDED 100 MG CAPSULE PO SCH (21:03)
[2021-04-11] MEDS: traZODone 50 MG TABLET. PO SCH (21:04)
[2021-04-11] MEDS: MIRTAZAPINE 7.5 MG TABLET. PO SCH (21:04)
[2021-04-11] MEDS: MELATONIN 3 MG TABLET PO SCH (21:04)
--- NOTE | 2021-04-11 22:01 | PDOC ---
Exam Note: Brooks Note: Please also refer to the separate dictated note~for this date of service dictated separately.~Patient seen individually. Discussed the patient with Nursing staff reviewed the chart.~Reviewed interim history and current functioning. Reviewed vital signs,~Labs/ Radiology~and current medications noted below. Continue current treatment with the changes noted in the dictated addendum note Assessment: Vital Signs/I&O: Vital Signs Date Time Temp Pulse Resp B/P (MAP) Pulse Ox O2 Delivery O2 Flow Rate FiO2 04/11/21 15:45 98.6 87 18 136/71 (92) 100 04/09/21 16:56 Room Air 04/07/21 16:31 0.0 I & O 04/10/21 04/10/21 04/11/21 15:00 23:00 07:00 Intake Total 470 ml 240 ml 120 ml Balance 470 ml 240 ml 120 ml Current Medications: Meds: Current Medications Medications (Trade) Dose Ordered Sig/Kassdiy Route PRN Reason Start Time Stop Time Status Last Admin Dose Admin Acetaminophen (Tylenol) 650 mg PRN Q6HRS PRN PO MILD PAIN / TEMP > 100.3'F 03/16/21 15:45 03/30/21 15:04 Multi-Ingredient Ointment (Analgesic [place]) 1 belinda PRN QID PRN TP MUSCLE PAIN 03/16/21 15:45 Al Hydroxide/Mg Hydroxide (Mylanta Plus Xs) 15 ml PRN AFTMEALHC PRN PO DYSPEPSIA 03/16/21 15:45 Magnesium Hydroxide (Milk Of Magnesia) 2,400 mg PRN QHS PRN PO CONSTIPATION 03/16/21 15:45 Acetaminophen (Tylenol) 650 mg PRN Q6HRS PRN PO pain or fever 03/16/21 16:00 UNV Aspirin (Aspirin Chewable) 81 mg DAILY PO 03/17/21 09:00 04/11/21 08:45 Levothyroxine Sodium (Synthroid) 50 mcg DAILY06 PO 03/17/21 06:00 04/11/21 05:01 Al Hydroxide/Mg Hydroxide (Mylanta Plus Xs) 15 ml PRN AFTMEALHC PRN PO DYSPEPSIA 03/16/21 16:00 UNV Magnesium Hydroxide (Milk Of Magnesia) 2,400 mg PRN QHS PRN PO CONSTIPATION 03/16/21 16:00 UNV Metolazone (Zaroxolyn) 5 mg QMWF@0900 PO 03/18/21 09:00 04/10/21 08:18 Mirtazapine (Remeron) 7.5 mg QHS PO 03/16/21 21:00 04/11/21 21:04 Phenytoin Sodium (Dilantin) 300 mg QHS PO 03/16/21 21:00 04/11/21 21:03 Potassium Chloride (Klor-Con) 20 meq BID PO 03/16/21 21:00 04/11/21 21:03 Sennosides (Senna) 8.6 mg BID PO 03/16/21 21:00 04/10/21 20:21 Non-Formulary Medication (Methyl Salicylate/ Menthol (Analgesic [place])) 1 belinda PRN QID PRN TP MUSCLE PAIN 03/16/21 16:00 UNV Multivitamins/ Calcium (Thera-M Plus) 1 tab DAILY PO 03/17/21 09:00 04/11/21 08:45 Polyethylene Glycol (miraLAX) 17 gm DAILY PO 03/17/21 09:00 04/10/21 08:18 Vitamin D (Vitamin D3) 50,000 unit WEEKLY PO 03/23/21 09:00 04/06/21 08:24 Cetirizine HCl (ZyrTEC) 10 mg DAILY PO 03/17/21 09:00 04/11/21 08:45 Sertraline HCl (Zoloft) 50 mg DAILY PO 03/17/21 09:00 03/18/21 18:34 DC 03/18/21 08:31 Denosumab (Prolia) 60 mg QMONTH SQ 04/15/21 09:00 UNV Phenytoin Sodium (Dilantin) 100 mg BID92 PO 03/17/21 09:00 Cancel Tramadol HCl (Ultram) 50 mg PRN BID PRN PO MOD-SEV PAIN 03/16/21 16:15 04/11/21 00:57 Trazodone HCl (Desyrel) 50 mg QHS PO 03/16/21 21:00 04/11/21 21:04 Ascorbic Acid (Vitamin C) 1,000 mg DAILY PO 03/17/21 09:00 04/11/21 08:46 Melatonin (Melatonin) 6 mg HS PO 03/16/21 21:00 04/11/21 21:04 Zinc Sulfate (Orazinc) 220 mg DAILY PO 03/17/21 09:00 04/11/21 08:46 Sertraline HCl (Zoloft) 75 mg DAILY PO 03/19/21 09:00 04/11/21 08:45 Olanzapine (ZyPREXA ZYDIS) 2.5 mg PRN Q2HR PRN PO PSYCHOSIS 03/19/21 20:15 04/07/21 15:55 Influenza Virus Vaccine Quadrival (Flulaval Quad Syringe) 0.5 ml ONCE ONCE VAX IM 03/25/21 09:00 03/25/21 09:01 DC 03/25/21 11:05 Gabapentin (Neurontin) 100 mg TID PO 03/24/21 21:00 03/26/21 11:42 DC 03/26/21 08:24 Gabapentin (Neurontin) 200 mg TID PO 03/26/21 14:00 03/29/21 16:00 DC 03/29/21 13:10 Valproic Acid (Depakene) 250 mg BID PO 03/29/21 21:00 04/02/21 10:15 DC 04/02/21 08:26 Valproic Acid (Depakene) 500 mg BID PO 04/02/21 21:00 04/11/21 21:05 Nystatin (Nystop) 1 belinda BID TP 04/03/21 21:00 04/11/21 21:02 Vitamin A/Vitamin D (Vitamin A & D Ointment) 1 belinda PRN Q1HR PRN TP SKIN PROTECTION 04/03/21 16:45 04/07/21 05:54 Quetiapine Fumarate (SEROquel) 12.5 mg 0900,1300,1700 PO 04/06/21 09:00 04/09/21 01:06 DC 04/08/21 17:03 Quetiapine Fumarate (SEROquel) 12.5 mg QID@0900,1200,1500,1700 PO 04/09/21 09:00 04/11/21 17:00 I have reviewed the current psychotropics carefully including drug interactions. Risk benefit ratio favors no change other than as noted in my dictated progress note. Diagnosis: Problems: (1) Impulse control disorder, unspecified (2) Anxiety disorder, unspecified (3) Major depressive disorder with psychotic features (4) Intellectual disability GAMALIEL MALLOY MD Apr 11, 2021 22:01
--- NOTE | 2021-04-11 23:59 | NUR ---
Patient is in her bed on assumption of care, awake in bed. She is mostly quiet, yelling out intermittently. Still resistant to medication given SL, although less so than previous evening. Patient appears to be sleeping comfortably at present time. Will continue to monitor.
[2021-04-12] MEDS: LEVOTHYROXINE 50 MCG TABLET PO SCH (05:27)
[2021-04-12 06:46] VITALS: BP 126/75
--- NOTE | 2021-04-12 08:40 | PDOC ---
Exam Note: Brooks Note: This note is a late entry for 04/09/2021 covers elements not covered in my initial note. Subjective: The patient was reviewed at treatment team meeting individually in the morning on 04/09/2021 with Angela Ochoa, Kacy Henry, and Katty (social work instructor), Radha, activity therapy and Jennifer RN, discussed and reviewed the chart. Reviewed the patients history, diagnoses, overall functioning on the unit, current psychotropics and risk-benefit ratio. The patient slept 3 hours previous night. She is refusing medications, have to be syringed at times. Discussed with Dale NEWMAN in the evening. She is intermittently compliant with her medications, yelling at times, wandering in and out of groups. She does better when given her meds by a male nursing staff otherwise, resistive. Review of Systems: Ambulation impaired in wheelchair. No CV, , pulmonary, eye, ENT system symptoms on review. Reliability poor. Mental Status Exam: The patient is oriented to herself. Insight and judgment, recent and remote memory, attention and concentration, fund of knowledge is poor consistent with her diagnoses. Laboratory Data: Reviewed. Impression: Major depressive disorder with psychotic features. Anxiety disorder unspecified. Impulse control disorder unspecified. Intellectual disability. Plan: Continue current psychotropics. Seroquel was increased to 12.5 mg 9 a.m., noon, 3 p.m., 5 p.m. Maintain trazodone, Zoloft, Dilantin, melatonin, Rem nat and Depakene. Latter is therapeutic with a level of 57. Assessment: Vital Signs/I&O: Vital Signs Date Time Temp Pulse Resp B/P (MAP) Pulse Ox O2 Delivery O2 Flow Rate FiO2 04/12/21 06:46 97.3 78 18 126/75 (92) 99 04/09/21 16:56 Room Air 04/07/21 16:31 0.0 I & O 04/11/21 04/11/21 04/12/21 15:00 23:00 07:00 Intake Total 240 ml 240 ml Balance 240 ml 240 ml Current Medications: Meds: Current Medications Medications (Trade) Dose Ordered Sig/Kassidy Route PRN Reason Start Time Stop Time Status Last Admin Dose Admin Acetaminophen (Tylenol) 650 mg PRN Q6HRS PRN PO MILD PAIN / TEMP > 100.3'F 03/16/21 15:45 03/30/21 15:04 Multi-Ingredient Ointment (Analgesic [place]) 1 belinda PRN QID PRN TP MUSCLE PAIN 03/16/21 15:45 Al Hydroxide/Mg Hydroxide (Mylanta Plus Xs) 15 ml PRN AFTMEALHC PRN PO DYSPEPSIA 03/16/21 15:45 Magnesium Hydroxide (Milk Of Magnesia) 2,400 mg PRN QHS PRN PO CONSTIPATION 03/16/21 15:45 Acetaminophen (Tylenol) 650 mg PRN Q6HRS PRN PO pain or fever 03/16/21 16:00 UNV Aspirin (Aspirin Chewable) 81 mg DAILY PO 03/17/21 09:00 04/11/21 08:45 Levothyroxine Sodium (Synthroid) 50 mcg DAILY06 PO 03/17/21 06:00 04/12/21 05:27 Al Hydroxide/Mg Hydroxide (Mylanta Plus Xs) 15 ml PRN AFTMEALHC PRN PO DYSPEPSIA 03/16/21 16:00 UNV Magnesium Hydroxide (Milk Of Magnesia) 2,400 mg PRN QHS PRN PO CONSTIPATION 03/16/21 16:00 UNV Metolazone (Zaroxolyn) 5 mg QMWF@0900 PO 03/18/21 09:00 04/10/21 08:18 Mirtazapine (Remeron) 7.5 mg QHS PO 03/16/21 21:00 04/11/21 21:04 Phenytoin Sodium (Dilantin) 300 mg QHS PO 03/16/21 21:00 04/11/21 21:03 Potassium Chloride (Klor-Con) 20 meq BID PO 03/16/21 21:00 04/11/21 21:03 Sennosides (Senna) 8.6 mg BID PO 03/16/21 21:00 04/10/21 20:21 Non-Formulary Medication (Methyl Salicylate/ Menthol (Analgesic [place])) 1 belinda PRN QID PRN TP MUSCLE PAIN 03/16/21 16:00 UNV Multivitamins/ Calcium (Thera-M Plus) 1 tab DAILY PO 03/17/21 09:00 04/11/21 08:45 Polyethylene Glycol (miraLAX) 17 gm DAILY PO 03/17/21 09:00 04/10/21 08:18 Vitamin D (Vitamin D3) 50,000 unit WEEKLY PO 03/23/21 09:00 04/06/21 08:24 Cetirizine HCl (ZyrTEC) 10 mg DAILY PO 03/17/21 09:00 04/11/21 08:45 Sertraline HCl (Zoloft) 50 mg DAILY PO 03/17/21 09:00 03/18/21 18:34 DC 03/18/21 08:31 Denosumab (Prolia) 60 mg QMONTH SQ 04/15/21 09:00 UNV Phenytoin Sodium (Dilantin) 100 mg BID92 PO 03/17/21 09:00 Cancel Tramadol HCl (Ultram) 50 mg PRN BID PRN PO MOD-SEV PAIN 03/16/21 16:15 04/11/21 00:57 Trazodone HCl (Desyrel) 50 mg QHS PO 03/16/21 21:00 04/11/21 21:04 Ascorbic Acid (Vitamin C) 1,000 mg DAILY PO 03/17/21 09:00 04/11/21 08:46 Melatonin (Melatonin) 6 mg HS PO 03/16/21 21:00 04/11/21 21:04 Zinc Sulfate (Orazinc) 220 mg DAILY PO 03/17/21 09:00 04/11/21 08:46 Sertraline HCl (Zoloft) 75 mg DAILY PO 03/19/21 09:00 04/11/21 08:45 Olanzapine (ZyPREXA ZYDIS) 2.5 mg PRN Q2HR PRN PO PSYCHOSIS 03/19/21 20:15 04/07/21 15:55 Influenza Virus Vaccine Quadrival (Flulaval Quad [id number] Syringe) 0.5 ml ONCE ONCE VAX IM 03/25/21 09:00 03/25/21 09:01 DC 03/25/21 11:05 Gabapentin (Neurontin) 100 mg TID PO 03/24/21 21:00 03/26/21 11:42 DC 03/26/21 08:24 Gabapentin (Neurontin) 200 mg TID PO 03/26/21 14:00 03/29/21 16:00 DC 03/29/21 13:10 Valproic Acid (Depakene) 250 mg BID PO 03/29/21 21:00 04/02/21 10:15 DC 04/02/21 08:26 Valproic Acid (Depakene) 500 mg BID PO 04/02/21 21:00 04/11/21 21:05 Nystatin (Nystop) 1 belinda BID TP 04/03/21 21:00 04/11/21 21:02 Vitamin A/Vitamin D (Vitamin A & D Ointment) 1 belinda PRN Q1HR PRN TP SKIN PROTECTION 04/03/21 16:45 04/07/21 05:54 Quetiapine Fumarate (SEROquel) 12.5 mg 0900,1300,1700 PO 04/06/21 09:00 04/09/21 01:06 DC 04/08/21 17:03 Quetiapine Fumarate (SEROquel) 12.5 mg QID@0900,1200,1500,1700 PO 04/09/21 09:00 04/11/21 17:00 I have reviewed the current psychotropics carefully including drug interactions. Risk benefit ratio favors no change other than as noted in my dictated progress note. Diagnosis: Problems: (1) Impulse control disorder, unspecified (2) Anxiety disorder, unspecified (3) Major depressive disorder with psychotic features (4) Intellectual disability GAMALIEL MALLOY MD Apr 12, 2021 08:40
[2021-04-12] MEDS: POLYETHYLENE GLYCOL 3350 17 GM PACKET. PO SCH (09:00)
[2021-04-12] MEDS: NYSTATIN TOPICAL POWDER 15GM BOTTLE. TP SCH ×2 (09:00→20:44)
[2021-04-12] MEDS: SENNOSIDES 8.6 MG TABLET PO SCH ×2 (09:00→20:44)
[2021-04-12] MEDS: VALPROATE ACID 250 MG/5 ML ORAL SOLUTION PO SCH ×2 (09:10→20:43)
[2021-04-12] MEDS: QUEtiapine 25 MG TABLET. PO SCH ×4 (09:11→17:16)
[2021-04-12] MEDS: ASCORBIC ACID 500 MG TABLET PO SCH (09:11)
[2021-04-12] MEDS: ZINC SULFATE 220 MG CAPSULE. PO SCH (09:11)
[2021-04-12] MEDS: SERTRALINE 50 MG TABLET. PO SCH (09:11)
[2021-04-12] MEDS: POTASSIUM CHLORIDE 20 MEQ TABLET.ER. PO SCH ×2 (09:11→17:16)
[2021-04-12] MEDS: CETIRIZINE HCL 10 MG TABLET PO SCH (09:11)
[2021-04-12] MEDS: ASPIRIN CHEWABLE 81 MG TABLET. PO SCH (09:11)
[2021-04-12] MEDS: MULTIVITAMIN with MINERAL TABLET. PO SCH (09:11)
--- NOTE | 2021-04-12 09:17 | PDOC ---
Exam Note: Brooks Note: This note is a late entry for 04/10/2021 covers elements not covered in my initial note. Subjective: The patient was seen individually in the evening of 04/10/2021 with Rowena NEWMAN, discussed and reviewed the chart. The patient slept 8-1/4 hours previous night. She has been yelling out at times, confused, redirects. Review of Systems: Ambulation impaired in wheelchair. No CV, , pulmonary, eye, ENT system symptoms on review. Mental Status Exam: The patient is oriented to herself and situation. Insight and judgment, recent and remote memory, attention and concentration, fund of knowledge is poor consistent with her diagnoses. Laboratory Data: Reviewed. Impression: Major depressive disorder with psychotic features. Anxiety disorder unspecified. Impulse control disorder unspecified. Intellectual disab ility. Plan: Continue rest psychotropics unchanged. Assessment: Vital Signs/I&O: Vital Signs Date Time Temp Pulse Resp B/P (MAP) Pulse Ox O2 Delivery O2 Flow Rate FiO2 04/12/21 06:46 97.3 78 18 126/75 (92) 99 04/09/21 16:56 Room Air 04/07/21 16:31 0.0 I & O 04/11/21 04/11/21 04/12/21 15:00 23:00 07:00 Intake Total 240 ml 240 ml Balance 240 ml 240 ml Current Medications: Meds: Current Medications Medications (Trade) Dose Ordered Sig/Kassidy Route PRN Reason Start Time Stop Time Status Last Admin Dose Admin Acetaminophen (Tylenol) 650 mg PRN Q6HRS PRN PO MILD PAIN / TEMP > 100.3'F 03/16/21 15:45 03/30/21 15:04 Multi-Ingredient Ointment (Analgesic [place]) 1 belinda PRN QID PRN TP MUSCLE PAIN 03/16/21 15:45 Al Hydroxide/Mg Hydroxide (Mylanta Plus Xs) 15 ml PRN AFTMEALHC PRN PO DYSPEPSIA 03/16/21 15:45 Magnesium Hydroxide (Milk Of Magnesia) 2,400 mg PRN QHS PRN PO CONSTIPATION 03/16/21 15:45 Acetaminophen (Tylenol) 650 mg PRN Q6HRS PRN PO pain or fever 03/16/21 16:00 UNV Aspirin (Aspirin Chewable) 81 mg DAILY PO 03/17/21 09:00 04/12/21 09:11 Levothyroxine Sodium (Synthroid) 50 mcg DAILY06 PO 03/17/21 06:00 04/12/21 05:27 Al Hydroxide/Mg Hydroxide (Mylanta Plus Xs) 15 ml PRN AFTMEALHC PRN PO DYSPEPSIA 03/16/21 16:00 UNV Magnesium Hydroxide (Milk Of Magnesia) 2,400 mg PRN QHS PRN PO CONSTIPATION 03/16/21 16:00 UNV Metolazone (Zaroxolyn) 5 mg QMWF@0900 PO 03/18/21 09:00 04/10/21 08:18 Mirtazapine (Remeron) 7.5 mg QHS PO 03/16/21 21:00 04/11/21 21:04 Phenytoin Sodium (Dilantin) 300 mg QHS PO 03/16/21 21:00 04/11/21 21:03 Potassium Chloride (Klor-Con) 20 meq BID PO 03/16/21 21:00 04/12/21 09:11 Sennosides (Senna) 8.6 mg BID PO 03/16/21 21:00 04/10/21 20:21 Non-Formulary Medication (Methyl Salicylate/ Menthol (Analgesic [place])) 1 belinda PRN QID PRN TP MUSCLE PAIN 03/16/21 16:00 UNV Multivitamins/ Calcium (Thera-M Plus) 1 tab DAILY PO 03/17/21 09:00 04/12/21 09:11 Polyethylene Glycol (miraLAX) 17 gm DAILY PO 03/17/21 09:00 04/10/21 08:18 Vitamin D (Vitamin D3) 50,000 unit WEEKLY PO 03/23/21 09:00 04/06/21 08:24 Cetirizine HCl (ZyrTEC) 10 mg DAILY PO 03/17/21 09:00 04/12/21 09:11 Sertraline HCl (Zoloft) 50 mg DAILY PO 03/17/21 09:00 03/18/21 18:34 DC 03/18/21 08:31 Denosumab (Prolia) 60 mg QMONTH SQ 04/15/21 09:00 UNV Phenytoin Sodium (Dilantin) 100 mg BID92 PO 03/17/21 09:00 Cancel Tramadol HCl (Ultram) 50 mg PRN BID PRN PO MOD-SEV PAIN 03/16/21 16:15 04/11/21 00:57 Trazodone HCl (Desyrel) 50 mg QHS PO 03/16/21 21:00 04/11/21 21:04 Ascorbic Acid (Vitamin C) 1,000 mg DAILY PO 03/17/21 09:00 04/12/21 09:11 Melatonin (Melatonin) 6 mg HS PO 03/16/21 21:00 04/11/21 21:04 Zinc Sulfate (Orazinc) 220 mg DAILY PO 03/17/21 09:00 04/12/21 09:11 Sertraline HCl (Zoloft) 75 mg DAILY PO 03/19/21 09:00 04/12/21 09:11 Olanzapine (ZyPREXA ZYDIS) 2.5 mg PRN Q2HR PRN PO PSYCHOSIS 03/19/21 20:15 04/07/21 15:55 Influenza Virus Vaccine Quadrival (Flulaval Quad [id number] Syringe) 0.5 ml ONCE ONCE VAX IM 03/25/21 09:00 03/25/21 09:01 DC 03/25/21 11:05 Gabapentin (Neurontin) 100 mg TID PO 03/24/21 21:00 03/26/21 11:42 DC 03/26/21 08:24 Gabapentin (Neurontin) 200 mg TID PO 03/26/21 14:00 03/29/21 16:00 DC 03/29/21 13:10 Valproic Acid (Depakene) 250 mg BID PO 03/29/21 21:00 04/02/21 10:15 DC 04/02/21 08:26 Valproic Acid (Depakene) 500 mg BID PO 04/02/21 21:00 04/12/21 09:10 Nystatin (Nystop) 1 belinda BID TP 04/03/21 21:00 04/11/21 21:02 Vitamin A/Vitamin D (Vitamin A & D Ointment) 1 belinda PRN Q1HR PRN TP SKIN PROTECTION 04/03/21 16:45 04/07/21 05:54 Quetiapine Fumarate (SEROquel) 12.5 mg 0900,1300,1700 PO 10/4/21 09:00 04/09/21 01:06 DC 04/08/21 17:03 Quetiapine Fumarate (SEROquel) 12.5 mg QID@0900,1200,1500,1700 PO 04/09/21 09:00 04/12/21 09:11 I have reviewed the current psychotropics carefully including drug interactions. Risk benefit ratio favors no change other than as noted in my dictated progress note. Diagnosis: Problems: (1) Impulse control disorder, unspecified (2) Anxiety disorder, unspecified (3) Major depressive disorder with psychotic features (4) Intellectual disability GAMALIEL MALLOY MD Apr 12, 2021 09:17
[2021-04-12 11:06] LABS: BASO # 0.1 x10^3/uL (0.0-0.2); BASO % 1 % (0-3); EOS # 0.1 x10^3/uL (0.0-0.7); EOS % 2 % (0-3); HEMATOCRIT 37.3 % (36.0-47.0); HEMOGLOBIN 12.4 g/dL (12.0-15.5); LYMPH # 1.9 x10^3/uL (1.0-4.8); LYMPH % 36 % (24-48); MEAN CORPUSCULAR HEMOGLOBIN 33 pg (25-35); MEAN CORPUSCULAR HGB CONC 33 g/dL (31-37); MEAN CORPUSCULAR VOLUME 98 fL (79-100); MONO # 0.4 x10^3/uL (0.0-1.1); MONO % 7 % (0-9); NEUT # 2.8 x10^3uL (1.8-7.7); NEUT % 53 % (31-73); PLATELET COUNT 286 x10^3/uL (140-400); RED BLOOD COUNT 3.82 x10^6/uL (3.50-5.40); RED CELL DISTRIBUTION WIDTH 14.1 % (11.5-14.5); WHITE BLOOD COUNT 5.2 x10^3/uL (4.0-11.0)
[2021-04-12 11:14] LABS: ALBUMIN 3.2 g/dL (3.4-5.0); ALBUMIN/GLOBULIN RATIO 0.7 (1.0-1.7); CALCIUM 9.2 mg/dL (8.5-10.1); CREATININE 0.5 mg/dL (0.6-1.0); POTASSIUM 3.8 mmol/L (3.5-5.1); TOTAL BILIRUBIN 0.3 mg/dL (0.2-1.0); TOTAL PROTEIN 7.6 g/dL (6.4-8.2)
--- NOTE | 2021-04-12 14:06 | NUR ---
Nursing note: Patient in dinning room for morning medication and assessment. Medications taken with high encouragement crushed in pudding. She tries to spit medications out. She has limited verbal interaction r/t intellectual disability, appears not to have pain per no facial grimacing noted at this time. Patient has said hi to peers & staff as she passes them in the mathews. She propels self in w/c, requires a [facility] or 2 person transfer. She continues to periodically yell or grunt out as well as being resistive to cares. She is currently sitting in day room sitting quietly. Will continue to monitor.
[2021-04-12 15:59] VITALS: BP 149/65
[2021-04-12] MEDS ORDERED: POLYETHYLENE GLYCOL 3350 17 GM PACKET. PO PRN (16:45)
[2021-04-12] MEDS: PHENYTOIN SODIUM EXTENDED 100 MG CAPSULE PO SCH (17:15)
[2021-04-12] MEDS: MELATONIN 3 MG TABLET PO SCH (20:44)
[2021-04-12] MEDS: traZODone 50 MG TABLET. PO SCH (20:44)
[2021-04-12] MEDS: MIRTAZAPINE 7.5 MG TABLET. PO SCH (20:44)
[2021-04-12] MEDS: traMADol 50 MG TABLET PO PRN (20:49)
--- NOTE | 2021-04-12 22:07 | PDOC ---
Exam Note: Brooks Note: Please also refer to the separate dictated note~for this date of service dictated separately.~Patient seen individually. Discussed the patient with Nursing staff reviewed the chart.~Reviewed interim history and current functioning. Reviewed vital signs,~Labs/ Radiology~and current medications noted below. Continue current treatment with the changes noted in the dictated addendum note Assessment: Vital Signs/I&O: Vital Signs Date Time Temp Pulse Resp B/P (MAP) Pulse Ox O2 Delivery O2 Flow Rate FiO2 04/12/21 21:22 96 04/12/21 15:59 97.4 80 16 149/65 (93) 04/09/21 16:56 Room Air 04/07/21 16:31 0.0 l I & O 04/11/21 04/11/21 04/12/21 15:00 23:00 07:00 Intake Total 240 ml 240 ml Balance 240 ml 240 ml Labs: Laboratory Tests Test 04/12/21 10:27 White Blood Count 5.2 x10^3/uL (4.0-11.0) Red Blood Count 3.82 x10^6/uL (3.50-5.40) Hemoglobin 12.4 g/dL (12.0-15.5) Hematocrit 37.3 % (36.0-47.0) Mean Corpuscular Volume 98 fL (79-100) Mean Corpuscular Hemoglobin 33 pg (25-35) Mean Corpuscular Hemoglobin Concent 33 g/dL (31-37) Red Cell Distribution Width 14.1 % (11.5-14.5) Platelet Count 286 x10^3/uL (140-400) Neutrophils (%) (Auto) 53 % (31-73) Lymphocytes (%) (Auto) 36 % (24-48) Monocytes (%) (Auto) 7 % (0-9) Eosinophils (%) (Auto) 2 % (0-3) Basophils (%) (Auto) 1 % (0-3) Neutrophils # (Auto) 2.8 x10^3uL (1.8-7.7) Lymphocytes # (Auto) 1.9 x10^3/uL (1.0-4.8) Monocytes # (Auto) 0.4 x10^3/uL (0.0-1.1) Eosinophils # (Auto) 0.1 x10^3/uL (0.0-0.7) Basophils # (Auto) 0.1 x10^3/uL (0.0-0.2) Sodium Level 137 mmol/L (136-145) Potassium Level 3.8 mmol/L (3.5-5.1) Chloride Level 100 mmol/L (98-107) Carbon Dioxide Level 30 mmol/L (21-32) Anion Gap 7 (6-14) Blood Urea Nitrogen 24 mg/dL (7-20) H Creatinine 0.5 mg/dL (0.6-1.0) L Estimated GFR (Cockcroft-Gault) 122.0 BUN/Creatinine Ratio 48 (6-20) H Glucose Level 107 mg/dL (70-99) H Calcium Level 9.2 mg/dL (8.5-10.1) Total Bilirubin 0.3 mg/dL (0.2-1.0) Aspartate Amino Transferase (AST) 20 U/L (15-37) Alanine Aminotransferase (ALT) 28 U/L (14-59) Alkaline Phosphatase 83 U/L (46-116) Total Protein 7.6 g/dL (6.4-8.2) Albumin 3.2 g/dL (3.4-5.0) L Albumin/Globulin Ratio 0.7 (1.0-1.7) L Current Medications: Meds: Laboratory Tests Test 04/12/21 10:27 White Blood Count 5.2 x10^3/uL Red Blood Count 3.82 x10^6/uL Hemoglobin 12.4 g/dL Hematocrit 37.3 % Mean Corpuscular Volume 98 fL Mean Corpuscular Hemoglobin 33 pg Mean Corpuscular Hemoglobin Concent 33 g/dL Red Cell Distribution Width 14.1 % Platelet Count 286 x10^3/uL Neutrophils (%) (Auto) 53 % Lymphocytes (%) (Auto) 36 % Monocytes (%) (Auto) 7 % Eosinophils (%) (Auto) 2 % Basophils (%) (Auto) 1 % Neutrophils # (Auto) 2.8 x10^3uL Lymphocytes # (Auto) 1.9 x10^3/uL Monocytes # (Auto) 0.4 x10^3/uL Eosinophils # (Auto) 0.1 x10^3/uL Basophils # (Auto) 0.1 x10^3/uL Sodium Level 137 mmol/L Potassium Level 3.8 mmol/L Chloride Level 100 mmol/L Carbon Dioxide Level 30 mmol/L Anion Gap 7 Blood Urea Nitrogen 24 mg/dL Creatinine 0.5 mg/dL Estimated GFR (Cockcroft-Gault) 122.0 BUN/Creatinine Ratio 48 Glucose Level 107 mg/dL Calcium Level 9.2 mg/dL Total Bilirubin 0.3 mg/dL Aspartate Amino Transf (AST/SGOT) 20 U/L Alanine Aminotransferase (ALT/SGPT) 28 U/L Alkaline Phosphatase 83 U/L Total Protein 7.6 g/dL Albumin 3.2 g/dL Albumin/Globulin Ratio 0.7 Current Medications Medications (Trade) Dose Ordered Sig/Kassidy Route PRN Reason Start Time Stop Time Status Last Admin Dose Admin Acetaminophen (Tylenol) 650 mg PRN Q6HRS PRN PO MILD PAIN / TEMP > 100.3'F 03/16/21 15:45 03/30/21 15:04 Multi-Ingredient Ointment (Analgesic [place]) 1 belinda PRN QID PRN TP MUSCLE PAIN 03/16/21 15:45 Al Hydroxide/Mg Hydroxide (Mylanta Plus Xs) 15 ml PRN AFTMEALHC PRN PO DYSPEPSIA 03/16/21 15:45 Magnesium Hydroxide (Milk Of Magnesia) 2,400 mg PRN QHS PRN PO CONSTIPATION 03/16/21 15:45 Acetaminophen (Tylenol) 650 mg PRN Q6HRS PRN PO pain or fever 03/16/21 16:00 UNV Aspirin (Aspirin Chewable) 81 mg DAILY PO 03/17/21 09:00 04/12/21 09:11 Levothyroxine Sodium (Synthroid) 50 mcg DAILY06 PO 03/17/21 06:00 04/12/21 05:27 Al Hydroxide/Mg Hydroxide (Mylanta Plus Xs) 15 ml PRN AFTMEALHC PRN PO DYSPEPSIA 03/16/21 16:00 UNV Magnesium Hydroxide (Milk Of Magnesia) 2,400 mg PRN QHS PRN PO CONSTIPATION 03/16/21 16:00 UNV Metolazone (Zaroxolyn) 5 mg QMWF@0900 PO 03/18/21 09:00 04/10/21 08:18 Mirtazapine (Remeron) 7.5 mg QHS PO 03/16/21 21:00 04/12/21 20:44 Phenytoin Sodium (Dilantin) 300 mg QHS PO 03/16/21 21:00 04/12/21 11:07 DC 04/11/21 21:03 Potassium Chloride (Klor-Con) 20 meq BID PO 03/16/21 21:00 04/12/21 11:07 DC 04/12/21 09:11 Sennosides (Senna) 8.6 mg BID PO 03/16/21 21:00 04/10/21 20:21 Non-Formulary Medication (Methyl Salicylate/ Menthol (Analgesic [place])) 1 belinda PRN QID PRN TP MUSCLE PAIN 03/16/21 16:00 UNV Multivitamins/ Calcium (Thera-M Plus) 1 tab DAILY PO 03/17/21 09:00 04/12/21 09:11 Polyethylene Glycol (miraLAX) 17 gm DAILY PO 03/17/21 09:00 04/12/21 16:42 DC 04/10/21 08:18 Vitamin D (Vitamin D3) 50,000 unit WEEKLY PO 03/23/21 09:00 04/06/21 08:24 Cetirizine HCl (ZyrTEC) 10 mg DAILY PO 03/17/21 09:00 04/12/21 09:11 Sertraline HCl (Zoloft) 50 mg DAILY PO 03/17/21 09:00 03/18/21 18:34 DC 03/18/21 08:31 Denosumab (Prolia) 60 mg QMONTH SQ 04/15/21 09:00 UNV Phenytoin Sodium (Dilantin) 100 mg BID92 PO 03/17/21 09:00 Cancel Tramadol HCl (Ultram) 50 mg PRN BID PRN PO MOD-SEV PAIN 03/16/21 16:15 04/12/21 20:49 Trazodone HCl (Desyrel) 50 mg QHS PO 03/16/21 21:00 04/12/21 20:44 Ascorbic Acid (Vitamin C) 1,000 mg DAILY PO 03/17/21 09:00 04/12/21 09:11 Melatonin (Melatonin) 6 mg HS PO 03/16/21 21:00 04/12/21 20:44 Zinc Sulfate (Orazinc) 220 mg DAILY PO 03/17/21 09:00 04/12/21 09:11 Sertraline HCl (Zoloft) 75 mg DAILY PO 03/19/21 09:00 04/12/21 09:11 Olanzapine (ZyPREXA ZYDIS) 2.5 mg PRN Q2HR PRN PO PSYCHOSIS 03/19/21 20:15 04/07/21 15:55 Influenza Virus Vaccine Quadrival (Flulaval Quad 8194-3530 Syringe) 0.5 ml ONCE ONCE VAX IM 03/25/21 09:00 03/25/21 09:01 DC 03/25/21 11:05 Gabapentin (Neurontin) 100 mg TID PO 03/24/21 21:00 03/26/21 11:42 DC 03/26/21 08:24 Gabapentin (Neurontin) 200 mg TID PO 03/26/21 14:00 03/29/21 16:00 DC 03/29/21 13:10 Valproic Acid (Depakene) 250 mg BID PO 03/29/21 21:00 04/02/21 10:15 DC 04/02/21 08:26 Valproic Acid (Depakene) 500 mg BID PO 04/02/21 21:00 04/12/21 20:43 Nystatin (Nystop) 1 belinda BID TP 04/03/21 21:00 04/12/21 20:44 Vitamin A/Vitamin D (Vitamin A & D Ointment) 1 belinda PRN Q1HR PRN TP SKIN PROTECTION 04/03/21 16:45 04/07/21 05:54 Quetiapine Fumarate (SEROquel) 12.5 mg 0900,1300,1700 PO 04/06/21 09:00 04/09/21 01:06 DC 04/08/21 17:03 Quetiapine Fumarate (SEROquel) 12.5 mg QID@0900,1200,1500,1700 PO 04/09/21 09:00 04/12/21 17:16 Phenytoin Sodium (Dilantin) 300 mg 1700 PO 04/12/21 17:00 04/12/21 17:15 Potassium Chloride (Klor-Con) 20 meq 0800,1700 PO 04/12/21 17:00 04/12/21 17:16 Polyethylene Glycol (miraLAX) 17 gm PRN DAILY PRN PO CONSTIPATION 04/12/21 16:45 Current Medications Medications (Trade) Dose Ordered Sig/Kassidy Route PRN Reason Start Time Stop Time Status Last Admin Dose Admin Phenytoin Sodium (Dilantin) 300 mg 1700 PO 04/12/21 17:00 04/12/21 17:15 Potassium Chloride (Klor-Con) 20 meq 0800,1700 PO 04/12/21 17:00 04/12/21 17:16 I have reviewed the current psychotropics carefully including drug interactions. Risk benefit ratio favors no change other than as noted in my dictated progress note. Diagnosis: Problems: (1) Impulse control disorder, unspecified (2) Anxiety disorder, unspecified (3) Major depressive disorder with psychotic features (4) Intellectual disability GAMALIEL MALLOY MD Apr 12, 2021 22:07
--- NOTE | 2021-04-12 23:15 | NUR ---
Patient is propelling herself around the unit in her wheelchair on assumption of care. She seems to be in a good mood, waving and attempting to high five various patients and members of staff as they walk by. On assessment, patient keeps grunting and pointing to her hands as if experiencing discomfort. PRN Tramadol administered with HS meds, with good effect. HS medications were crushed and mixed with cola, which patient consumed with very little encouragement. Patient appears to be sleeping comfortably at present time. Will continue to monitor.
[2021-04-13] MEDS: LEVOTHYROXINE 50 MCG TABLET PO SCH (04:52)
[2021-04-13 05:38] VITALS: BP 158/95
--- NOTE | 2021-04-13 07:12 | PDOC ---
Exam Note: Brooks Note: This note is a late entry for 04/11/2021 covers elements not covered in my initial note. Subjective: The patient was seen individually in the evening of 04/11/2021 with Tori NEWMAN, discussed and reviewed the chart. The patient slept 4 hours previous night. She has been refusing her medications but takes it in Cola. Overall she remains hyperverbal, anxious but more redirectable. Review of Systems: Ambulation impaired in wheelchair. No CV, , pulmonary, eye, ENT system symptoms on review. Reliability poor. Mental Status Exam: The patient is oriented to herself. Insight and judgment, recent and remote memory, attention and concentration, fund of knowledge is poor consistent with her diagnoses. Laboratory Data: Reviewed. Impression: Major depressive disorder with psychotic features. Anxiety disorder unspecified. Impulse control disorder unspecified. Intellectual disability. Plan: Continue rest psychotropics unchanged. Valproic acid level and Dilantin level therapeutic. Assessment: Vital Signs/I&O: Vital Signs Date Time Temp Pulse Resp B/P (MAP) Pulse Ox O2 Delivery O2 Flow Rate FiO2 04/13/21 05:38 97.9 88 18 158/95 (116) 92 04/09/21 16:56 Room Air 04/07/21 16:31 0.0 I & O 04/12/21 04/12/21 04/13/21 15:00 23:00 07:00 Intake Total 480 ml 360 ml Balance 480 ml 360 ml Labs: Laboratory Tests Test 04/12/21 10:27 White Blood Count 5.2 x10^3/uL (4.0-11.0) Red Blood Count 3.82 x10^6/uL (3.50-5.40) Hemoglobin 12.4 g/dL (12.0-15.5) Hematocrit 37.3 % (36.0-47.0) Mean Corpuscular Volume 98 fL (79-100) Mean Corpuscular Hemoglobin 33 pg (25-35) Mean Corpuscular Hemoglobin Concent 33 g/dL (31-37) Red Cell Distribution Width 14.1 % (11.5-14.5) Platelet Count 286 x10^3/uL (140-400) Neutrophils (%) (Auto) 53 % (31-73) Lymphocytes (%) (Auto) 36 % (24-48) Monocytes (%) (Auto) 7 % (0-9) Eosinophils (%) (Auto) 2 % (0-3) Basophils (%) (Auto) 1 % (0-3) Neutrophils # (Auto) 2.8 x10^3uL (1.8-7.7) Lymphocytes # (Auto) 1.9 x10^3/uL (1.0-4.8) Monocytes # (Auto) 0.4 x10^3/uL (0.0-1.1) Eosinophils # (Auto) 0.1 x10^3/uL (0.0-0.7) Basophils # (Auto) 0.1 x10^3/uL (0.0-0.2) Sodium Level 137 mmol/L (136-145) Potassium Level 3.8 mmol/L (3.5-5.1) Chloride Level 100 mmol/L (98-107) Carbon Dioxide Level 30 mmol/L (21-32) Anion Gap 7 (6-14) Blood Urea Nitrogen 24 mg/dL (7-20) H Creatinine 0.5 mg/dL (0.6-1.0) L Estimated GFR (Cockcroft-Gault) 122.0 BUN/Creatinine Ratio 48 (6-20) H Glucose Level 107 mg/dL (70-99) H Calcium Level 9.2 mg/dL (8.5-10.1) Total Bilirubin 0.3 mg/dL (0.2-1.0) Aspartate Amino Transferase (AST) 20 U/L (15-37) Alanine Aminotransferase (ALT) 28 U/L (14-59) Alkaline Phosphatase 83 U/L (46-116) Total Protein 7.6 g/dL (6.4-8.2) Albumin 3.2 g/dL (3.4-5.0) L Albumin/Globulin Ratio 0.7 (1.0-1.7) L Current Medications: Meds: Laboratory Tests Test 04/12/21 10:27 White Blood Count 5.2 x10^3/uL Red Blood Count 3.82 x10^6/uL Hemoglobin 12.4 g/dL Hematocrit 37.3 % Mean Corpuscular Volume 98 fL Mean Corpuscular Hemoglobin 33 pg Mean Corpuscular Hemoglobin Concent 33 g/dL Red Cell Distribution Width 14.1 % Platelet Count 286 x10^3/uL Neutrophils (%) (Auto) 53 % Lymphocytes (%) (Auto) 36 % Monocytes (%) (Auto) 7 % Eosinophils (%) (Auto) 2 % Basophils (%) (Auto) 1 % Neutrophils # (Auto) 2.8 x10^3uL Lymphocytes # (Auto) 1.9 x10^3/uL Monocytes # (Auto) 0.4 x10^3/uL Eosinophils # (Auto) 0.1 x10^3/uL Basophils # (Auto) 0.1 x10^3/uL Sodium Level 137 mmol/L Potassium Level 3.8 mmol/L Chloride Level 100 mmol/L Carbon Dioxide Level 30 mmol/L Anion Gap 7 Blood Urea Nitrogen 24 mg/dL Creatinine 0.5 mg/dL Estimated GFR (Cockcroft-Gault) 122.0 BUN/Creatinine Ratio 48 Glucose Level 107 mg/dL Calcium Level 9.2 mg/dL Total Bilirubin 0.3 mg/dL Aspartate Amino Transf (AST/SGOT) 20 U/L Alanine Aminotransferase (ALT/SGPT) 28 U/L Alkaline Phosphatase 83 U/L Total Protein 7.6 g/dL Albumin 3.2 g/dL Albumin/Globulin Ratio 0.7 Current Medications Medications (Trade) Dose Ordered Sig/Kassidy Route PRN Reason Start Time Stop Time Status Last Admin Dose Admin Acetaminophen (Tylenol) 650 mg PRN Q6HRS PRN PO MILD PAIN / TEMP > 100.3'F 03/16/21 15:45 03/30/21 15:04 Multi-Ingredient Ointment (Analgesic Snyder) 1 belinda PRN QID PRN TP MUSCLE PAIN 03/16/21 15:45 Al Hydroxide/Mg Hydroxide (Mylanta Plus Xs) 15 ml PRN AFTMEALHC PRN PO DYSPEPSIA 03/16/21 15:45 Magnesium Hydroxide (Milk Of Magnesia) 2,400 mg PRN QHS PRN PO CONSTIPATION 03/16/21 15:45 Acetaminophen (Tylenol) 650 mg PRN Q6HRS PRN PO pain or fever 03/16/21 16:00 UNV Aspirin (Aspirin Chewable) 81 mg DAILY PO 03/17/21 09:00 04/12/21 09:11 Levothyroxine Sodium (Synthroid) 50 mcg DAILY06 PO 03/17/21 06:00 04/13/21 04:52 Al Hydroxide/Mg Hydroxide (Mylanta Plus Xs) 15 ml PRN AFTMEALHC PRN PO DYSPEPSIA 03/16/21 16:00 UNV Magnesium Hydroxide (Milk Of Magnesia) 2,400 mg PRN QHS PRN PO CONSTIPATION 03/16/21 16:00 UNV Metolazone (Zaroxolyn) 5 mg QMWF@0900 PO 03/18/21 09:00 04/10/21 08:18 Mirtazapine (Remeron) 7.5 mg QHS PO 03/16/21 21:00 04/12/21 20:44 Phenytoin Sodium (Dilantin) 300 mg QHS PO 03/16/21 21:00 04/12/21 11:07 DC 04/11/21 21:03 Potassium Chloride (Klor-Con) 20 meq BID PO 03/16/21 21:00 04/12/21 11:07 DC 04/12/21 09:11 Sennosides (Senna) 8.6 mg BID PO 03/16/21 21:00 04/10/21 20:21 Non-Formulary Medication (Methyl Salicylate/ Menthol (Analgesic Snyder)) 1 belinda PRN QID PRN TP MUSCLE PAIN 03/16/21 16:00 UNV Multivitamins/ Calcium (Thera-M Plus) 1 tab DAILY PO 03/17/21 09:00 04/12/21 09:11 Polyethylene Glycol (miraLAX) 17 gm DAILY PO 03/17/21 09:00 04/12/21 16:42 DC 04/10/21 08:18 Vitamin D (Vitamin D3) 50,000 unit WEEKLY PO 03/23/21 09:00 04/06/21 08:24 Cetirizine HCl (ZyrTEC) 10 mg DAILY PO 03/17/21 09:00 04/12/21 09:11 Sertraline HCl (Zoloft) 50 mg DAILY PO 03/17/21 09:00 03/18/21 18:34 DC 03/18/21 08:31 Denosumab (Prolia) 60 mg QMONTH SQ 04/15/21 09:00 UNV Phenytoin Sodium (Dilantin) 100 mg BID92 PO 03/17/21 09:00 Cancel Tramadol HCl (Ultram) 50 mg PRN BID PRN PO MOD-SEV PAIN 03/16/21 16:15 04/12/21 20:49 Trazodone HCl (Desyrel) 50 mg QHS PO 03/16/21 21:00 04/12/21 20:44 Ascorbic Acid (Vitamin C) 1,000 mg DAILY PO 03/17/21 09:00 04/12/21 09:11 Melatonin (Melatonin) 6 mg HS PO 03/16/21 21:00 04/12/21 20:44 Zinc Sulfate (Orazinc) 220 mg DAILY PO 03/17/21 09:00 04/12/21 09:11 Sertraline HCl (Zoloft) 75 mg DAILY PO 03/19/21 09:00 04/12/21 09:11 Olanzapine (ZyPREXA ZYDIS) 2.5 mg PRN Q2HR PRN PO PSYCHOSIS 03/19/21 20:15 04/07/21 15:55 Influenza Virus Vaccine Quadrival (Flulaval Quad [id number] Syringe) 0.5 ml ONCE ONCE VAX IM 03/25/21 09:00 03/25/21 09:01 DC 03/25/21 11:05 Gabapentin (Neurontin) 100 mg TID PO 03/24/21 21:00 03/26/21 11:42 DC 03/26/21 08:24 Gabapentin (Neurontin) 200 mg TID PO 03/26/21 14:00 03/29/21 16:00 DC 03/29/21 13:10 Valproic Acid (Depakene) 250 mg BID PO 03/29/21 21:00 04/02/21 10:15 DC 04/02/21 08:26 Valproic Acid (Depakene) 500 mg BID PO 04/02/21 21:00 04/12/21 20:43 Nystatin (Nystop) 1 belinda BID TP 04/03/21 21:00 04/12/21 20:44 Vitamin A/Vitamin D (Vitamin A & D Ointment) 1 belinda PRN Q1HR PRN TP SKIN PROTECTION 04/03/21 16:45 04/07/21 05:54 Quetiapine Fumarate (SEROquel) 12.5 mg 0900,1300,1700 PO 04/06/21 09:00 04/09/21 01:06 DC 04/08/21 17:03 Quetiapine Fumarate (SEROquel) 12.5 mg QID@0900,1200,1500,1700 PO 04/09/21 09:00 04/12/21 17:16 Phenytoin Sodium (Dilantin) 300 mg 1700 PO 04/12/21 17:00 04/12/21 17:15 Potassium Chloride (Klor-Con) 20 meq 0800,1700 PO 04/12/21 17:00 04/12/21 17:16 Polyethylene Glycol (miraLAX) 17 gm PRN DAILY PRN PO CONSTIPATION 04/12/21 16:45 Current Medications Medications (Trade) Dose Ordered Sig/Kassidy Route PRN Reason Start Time Stop Time Status Last Admin Dose Admin Phenytoin Sodium (Dilantin) 300 mg 1700 PO 04/12/21 17:00 04/12/21 17:15 Potassium Chloride (Klor-Con) 20 meq 0800,1700 PO 04/12/21 17:00 04/12/21 17:16 I have reviewed the current psychotropics carefully including drug interactions. Risk benefit ratio favors no change other than as noted in my dictated progress note. Diagnosis: Problems: (1) Impulse control disorder, unspecified (2) Anxiety disorder, unspecified (3) Major depressive disorder with psychotic features (4) Intellectual disability GAMALIEL MALLOY MD Apr 13, 2021 07:12
--- NOTE | 2021-04-13 07:39 | PDOC ---
Exam Note: Brooks Note: This note is a late entry for 04/12/2021 covers elements not covered in my initial note. Subjective: The patient was seen individually in the evening of 04/12/2021 with Viviana NEWMAN, discussed and reviewed the chart. The patient slept 4-3/4 hours previous night. She is resistive to medications and cares but redirects. Review of Systems: Ambulation impaired in wheelchair. No CV, , pulmonary, eye, ENT system symptoms on review. Reliability poor. Mental Status Exam: The patient is oriented to herself and situation. I met with her in the dayroom. As I was talking to her she was oblivious, paddling herself down the other end of the dayroom in her wheelchair as I continued to follow her. Insight and judgment, recent and remote memory, attention and concentration, fund of knowledge is poor consistent with her diagnoses. Laboratory Data: Reviewed. Impression: Major depressive disorder with psychotic features. Anxiety disorder unspecified. Impulse control disorder unspecified. Intellectual disability. Plan: Continue rest psychotropics unchanged. Assessment: Vital Signs/I&O: Vital Signs Date Time Temp Pulse Resp B/P (MAP) Pulse Ox O2 Delivery O2 Flow Rate FiO2 04/13/21 05:38 97.9 88 18 158/95 (116) 92 04/09/21 16:56 Room Air 04/07/21 16:31 0.0 I & O 04/12/21 04/12/21 04/13/21 15:00 23:00 07:00 Intake Total 480 ml 360 ml Balance 480 ml 360 ml Labs: Laboratory Tests Test 04/12/21 10:27 White Blood Count 5.2 x10^3/uL (4.0-11.0) Red Blood Count 3.82 x10^6/uL (3.50-5.40) Hemoglobin 12.4 g/dL (12.0-15.5) Hematocrit 37.3 % (36.0-47.0) Mean Corpuscular Volume 98 fL (79-100) Mean Corpuscular Hemoglobin 33 pg (25-35) Mean Corpuscular Hemoglobin Concent 33 g/dL (31-37) Red Cell Distribution Width 14.1 % (11.5-14.5) Platelet Count 286 x10^3/uL (140-400) Neutrophils (%) (Auto) 53 % (31-73) Lymphocytes (%) (Auto) 36 % (24-48) Monocytes (%) (Auto) 7 % (0-9) Eosinophils (%) (Auto) 2 % (0-3) Basophils (%) (Auto) 1 % (0-3) Neutrophils # (Auto) 2.8 x10^3uL (1.8-7.7) Lymphocytes # (Auto) 1.9 x10^3/uL (1.0-4.8) Monocytes # (Auto) 0.4 x10^3/uL (0.0-1.1) Eosinophils # (Auto) 0.1 x10^3/uL (0.0-0.7) Basophils # (Auto) 0.1 x10^3/uL (0.0-0.2) Sodium Level 137 mmol/L (136-145) Potassium Level 3.8 mmol/L (3.5-5.1) Chloride Level 100 mmol/L (98-107) Carbon Dioxide Level 30 mmol/L (21-32) Anion Gap 7 (6-14) Blood Urea Nitrogen 24 mg/dL (7-20) H Creatinine 0.5 mg/dL (0.6-1.0) L Estimated GFR (Cockcroft-Gault) 122.0 BUN/Creatinine Ratio 48 (6-20) H Glucose Level 107 mg/dL (70-99) H Calcium Level 9.2 mg/dL (8.5-10.1) Total Bilirubin 0.3 mg/dL (0.2-1.0) Aspartate Amino Transferase (AST) 20 U/L (15-37) Alanine Aminotransferase (ALT) 28 U/L (14-59) Alkaline Phosphatase 83 U/L (46-116) Total Protein 7.6 g/dL (6.4-8.2) Albumin 3.2 g/dL (3.4-5.0) L Albumin/Globulin Ratio 0.7 (1.0-1.7) L Current Medications: Meds: Laboratory Tests Test 04/12/21 10:27 White Blood Count 5.2 x10^3/uL Red Blood Count 3.82 x10^6/uL Hemoglobin 12.4 g/dL Hematocrit 37.3 % Mean Corpuscular Volume 98 fL Mean Corpuscular Hemoglobin 33 pg Mean Corpuscular Hemoglobin Concent 33 g/dL Red Cell Distribution Width 14.1 % Platelet Count 286 x10^3/uL Neutrophils (%) (Auto) 53 % Lymphocytes (%) (Auto) 36 % Monocytes (%) (Auto) 7 % Eosinophils (%) (Auto) 2 % Basophils (%) (Auto) 1 % Neutrophils # (Auto) 2.8 x10^3uL Lymphocytes # (Auto) 1.9 x10^3/uL Monocytes # (Auto) 0.4 x10^3/uL Eosinophils # (Auto) 0.1 x10^3/uL Basophils # (Auto) 0.1 x10^3/uL Sodium Level 137 mmol/L Potassium Level 3.8 mmol/L Chloride Level 100 mmol/L Carbon Dioxide Level 30 mmol/L Anion Gap 7 Blood Urea Nitrogen 24 mg/dL Creatinine 0.5 mg/dL Estimated GFR (Cockcroft-Gault) 122.0 BUN/Creatinine Ratio 48 Glucose Level 107 mg/dL Calcium Level 9.2 mg/dL Total Bilirubin 0.3 mg/dL Aspartate Amino Transf (AST/SGOT) 20 U/L Alanine Aminotransferase (ALT/SGPT) 28 U/L Alkaline Phosphatase 83 U/L Total Protein 7.6 g/dL Albumin 3.2 g/dL Albumin/Globulin Ratio 0.7 Current Medications Medications (Trade) Dose Ordered Sig/Kassidy Route PRN Reason Start Time Stop Time Status Last Admin Dose Admin Acetaminophen (Tylenol) 650 mg PRN Q6HRS PRN PO MILD PAIN / TEMP > 100.3'F 03/16/21 15:45 03/30/21 15:04 Multi-Ingredient Ointment (Analgesic Picacho) 1 belinda PRN QID PRN TP MUSCLE PAIN 03/16/21 15:45 Al Hydroxide/Mg Hydroxide (Mylanta Plus Xs) 15 ml PRN AFTMEALHC PRN PO DYSPEPSIA 03/16/21 15:45 Magnesium Hydroxide (Milk Of Magnesia) 2,400 mg PRN QHS PRN PO CONSTIPATION 03/16/21 15:45 Acetaminophen (Tylenol) 650 mg PRN Q6HRS PRN PO pain or fever 03/16/21 16:00 UNV Aspirin (Aspirin Chewable) 81 mg DAILY PO 03/17/21 09:00 04/12/21 09:11 Levothyroxine Sodium (Synthroid) 50 mcg DAILY06 PO 03/17/21 06:00 04/13/21 04:52 Al Hydroxide/Mg Hydroxide (Mylanta Plus Xs) 15 ml PRN AFTMEALHC PRN PO DYSPEPSIA 03/16/21 16:00 UNV Magnesium Hydroxide (Milk Of Magnesia) 2,400 mg PRN QHS PRN PO CONSTIPATION 03/16/21 16:00 UNV Metolazone (Zaroxolyn) 5 mg QMWF@0900 PO 03/18/21 09:00 04/10/21 08:18 Mirtazapine (Remeron) 7.5 mg QHS PO 03/16/21 21:00 04/12/21 20:44 Phenytoin Sodium (Dilantin) 300 mg QHS PO 03/16/21 21:00 04/12/21 11:07 DC 04/11/21 21:03 Potassium Chloride (Klor-Con) 20 meq BID PO 03/16/21 21:00 04/12/21 11:07 DC 04/12/21 09:11 Sennosides (Senna) 8.6 mg BID PO 03/16/21 21:00 04/10/21 20:21 Non-Formulary Medication (Methyl Salicylate/ Menthol (Analgesic Picacho)) 1 belinda PRN QID PRN TP MUSCLE PAIN 03/16/21 16:00 UNV Multivitamins/ Calcium (Thera-M Plus) 1 tab DAILY PO 03/17/21 09:00 04/12/21 09:11 Polyethylene Glycol (miraLAX) 17 gm DAILY PO 03/17/21 09:00 04/12/21 16:42 DC 04/10/21 08:18 Vitamin D (Vitamin D3) 50,000 unit WEEKLY PO 03/23/21 09:00 04/06/21 08:24 Cetirizine HCl (ZyrTEC) 10 mg DAILY PO 03/17/21 09:00 04/12/21 09:11 Sertraline HCl (Zoloft) 50 mg DAILY PO 03/17/21 09:00 03/18/21 18:34 DC 03/18/21 08:31 Denosumab (Prolia) 60 mg QMONTH SQ 04/15/21 09:00 UNV Phenytoin Sodium (Dilantin) 100 mg BID92 PO 03/17/21 09:00 Cancel Tramadol HCl (Ultram) 50 mg PRN BID PRN PO MOD-SEV PAIN 03/16/21 16:15 04/12/21 20:49 Trazodone HCl (Desyrel) 50 mg QHS PO 03/16/21 21:00 04/12/21 20:44 Ascorbic Acid (Vitamin C) 1,000 mg DAILY PO 03/17/21 09:00 04/12/21 09:11 Melatonin (Melatonin) 6 mg HS PO 03/16/21 21:00 04/12/21 20:44 Zinc Sulfate (Orazinc) 220 mg DAILY PO 03/17/21 09:00 04/12/21 09:11 Sertraline HCl (Zoloft) 75 mg DAILY PO 03/19/21 09:00 04/12/21 09:11 Olanzapine (ZyPREXA ZYDIS) 2.5 mg PRN Q2HR PRN PO PSYCHOSIS 03/19/21 20:15 04/07/21 15:55 Influenza Virus Vaccine Quadrival (Flulaval Quad [id number] Syringe) 0.5 ml ONCE ONCE VAX IM 03/25/21 09:00 03/25/21 09:01 DC 03/25/21 11:05 Gabapentin (Neurontin) 100 mg TID PO 03/24/21 21:00 03/26/21 11:42 DC 03/26/21 08:24 Gabapentin (Neurontin) 200 mg TID PO 03/26/21 14:00 03/29/21 16:00 DC 03/29/21 13:10 Valproic Acid (Depakene) 250 mg BID PO 03/29/21 21:00 04/02/21 10:15 DC 04/02/21 08:26 Valproic Acid (Depakene) 500 mg BID PO 04/02/21 21:00 04/12/21 20:43 Nystatin (Nystop) 1 belinda BID TP 04/03/21 21:00 04/12/21 20:44 Vitamin A/Vitamin D (Vitamin A & D Ointment) 1 belinda PRN Q1HR PRN TP SKIN PROTECTION 04/03/21 16:45 04/07/21 05:54 Quetiapine Fumarate (SEROquel) 12.5 mg 0900,1300,1700 PO 04/06/21 09:00 04/09/21 01:06 DC 04/08/21 17:03 Quetiapine Fumarate (SEROquel) 12.5 mg QID@0900,1200,1500,1700 PO 04/09/21 09:00 04/12/21 17:16 Phenytoin Sodium (Dilantin) 300 mg 1700 PO 04/12/21 17:00 04/12/21 17:15 Potassium Chloride (Klor-Con) 20 meq 0800,1700 PO 04/12/21 17:00 04/12/21 17:16 Polyethylene Glycol (miraLAX) 17 gm PRN DAILY PRN PO CONSTIPATION 04/12/21 16:45 Current Medications Medications (Trade) Dose Ordered Sig/Kassidy Route PRN Reason Start Time Stop Time Status Last Admin Dose Admin Phenytoin Sodium (Dilantin) 300 mg 1700 PO 04/12/21 17:00 04/12/21 17:15 Potassium Chloride (Klor-Con) 20 meq 0800,1700 PO 04/12/21 17:00 04/12/21 17:16 I have reviewed the current psychotropics carefully including drug interactions. Risk benefit ratio favors no change other than as noted in my dictated progress note. Diagnosis: Problems: (1) Impulse control disorder, unspecified (2) Anxiety disorder, unspecified (3) Major depressive disorder with psychotic features (4) Intellectual disability GAMALIEL MALLOY MD Apr 13, 2021 07:39
[2021-04-13] MEDS: ASCORBIC ACID 500 MG TABLET PO SCH (08:07)
[2021-04-13] MEDS: MULTIVITAMIN with MINERAL TABLET. PO SCH (08:07)
[2021-04-13] MEDS: POTASSIUM CHLORIDE 20 MEQ TABLET.ER. PO SCH ×2 (08:07→17:23)
[2021-04-13] MEDS: ZINC SULFATE 220 MG CAPSULE. PO SCH (08:07)
[2021-04-13] MEDS: QUEtiapine 25 MG TABLET. PO SCH ×4 (08:07→17:23)
[2021-04-13] MEDS: CHOLECALCIFEROL (VITAMIN D3) 50,000 UNIT CAPSULE PO SCH (08:07)
[2021-04-13] MEDS: CETIRIZINE HCL 10 MG TABLET PO SCH (08:07)
[2021-04-13] MEDS: metOLazone 5 MG TABLET PO SCH (08:07)
[2021-04-13] MEDS: SENNOSIDES 8.6 MG TABLET PO SCH ×2 (08:08→19:37)
[2021-04-13] MEDS: ASPIRIN CHEWABLE 81 MG TABLET. PO SCH (08:08)
[2021-04-13] MEDS: SERTRALINE 50 MG TABLET. PO SCH (08:08)
[2021-04-13] MEDS: VALPROATE ACID 250 MG/5 ML ORAL SOLUTION PO SCH ×2 (08:45→19:36)
[2021-04-13] MEDS: NYSTATIN TOPICAL POWDER 15GM BOTTLE. TP SCH ×2 (09:00→19:37)
--- NOTE | 2021-04-13 15:10 | NUR ---
Nursing note: Patient in dinning room for morning medication and assessment. Medications taken crushed in pudding. She did NOT need encouragement to take medications this shift due to her favorite staff being at facility today. She has limited verbal interaction r/t intellectual disability, appears not to have pain per no facial grimacing noted at this time. Patient has said hi to peers & staff as she passes them in the mathews. She propels self in w/c, requires a [facility] or 2 person transfer. She continues to periodically yell or grunt out as well as being resistive to cares. She is currently propelling through hallway. Will continue to monitor.
[2021-04-13 15:45] VITALS: BP 108/65
[2021-04-13] MEDS: PHENYTOIN SODIUM EXTENDED 100 MG CAPSULE PO SCH (17:23)
[2021-04-13] MEDS: MELATONIN 3 MG TABLET PO SCH (19:36)
[2021-04-13] MEDS: MIRTAZAPINE 7.5 MG TABLET. PO SCH (19:37)
[2021-04-13] MEDS: traZODone 50 MG TABLET. PO SCH (19:37)
[2021-04-13] MEDS: traMADol 50 MG TABLET PO PRN (19:38)
--- NOTE | 2021-04-13 21:54 | PDOC ---
Exam Note: Brooks Note: Please also refer to the separate dictated note~for this date of service dictated separately.~Patient seen individually. Discussed the patient with Nursing staff reviewed the chart.~Reviewed interim history and current functioning. Reviewed vital signs,~Labs/ Radiology~and current medications noted below. Continue current treatment with the changes noted in the dictated addendum note Assessment: Vital Signs/I&O: Vital Signs Date Time Temp Pulse Resp B/P (MAP) Pulse Ox O2 Delivery O2 Flow Rate FiO2 04/13/21 19:38 96 04/13/21 15:45 97.3 83 20 108/65 (79) 04/09/21 16:56 Room Air 04/07/21 16:31 0.0 l I & O 04/12/21 04/12/21 04/13/21 15:00 23:00 07:00 Intake Total 480 ml 360 ml Balance 480 ml 360 ml Current Medications: Meds: Current Medications Medications (Trade) Dose Ordered Sig/Kassidy Route PRN Reason Start Time Stop Time Status Last Admin Dose Admin Acetaminophen (Tylenol) 650 mg PRN Q6HRS PRN PO MILD PAIN / TEMP > 100.3'F 03/16/21 15:45 03/30/21 15:04 Multi-Ingredient Ointment (Analgesic Wilmer) 1 belinda PRN QID PRN TP MUSCLE PAIN 03/16/21 15:45 Al Hydroxide/Mg Hydroxide (Mylanta Plus Xs) 15 ml PRN AFTMEALHC PRN PO DYSPEPSIA 03/16/21 15:45 Magnesium Hydroxide (Milk Of Magnesia) 2,400 mg PRN QHS PRN PO CONSTIPATION 03/16/21 15:45 Acetaminophen (Tylenol) 650 mg PRN Q6HRS PRN PO pain or fever 03/16/21 16:00 UNV Aspirin (Aspirin Chewable) 81 mg DAILY PO 03/17/21 09:00 04/13/21 08:08 Levothyroxine Sodium (Synthroid) 50 mcg DAILY06 PO 03/17/21 06:00 04/13/21 04:52 Al Hydroxide/Mg Hydroxide (Mylanta Plus Xs) 15 ml PRN AFTMEALHC PRN PO DYSPEPSIA 03/16/21 16:00 UNV Magnesium Hydroxide (Milk Of Magnesia) 2,400 mg PRN QHS PRN PO CONSTIPATION 03/16/21 16:00 UNV Metolazone (Zaroxolyn) 5 mg QMWF@0900 PO 03/18/21 09:00 04/13/21 08:07 Mirtazapine (Remeron) 7.5 mg QHS PO 03/16/21 21:00 04/13/21 19:37 Phenytoin Sodium (Dilantin) 300 mg QHS PO 03/16/21 21:00 04/12/21 11:07 DC 04/11/21 21:03 Potassium Chloride (Klor-Con) 20 meq BID PO 03/16/21 21:00 04/12/21 11:07 DC 04/12/21 09:11 Sennosides (Senna) 8.6 mg BID PO 03/16/21 21:00 04/13/21 19:37 Non-Formulary Medication (Methyl Salicylate/ Menthol (Analgesic Wilmer)) 1 belinda PRN QID PRN TP MUSCLE PAIN 03/16/21 16:00 UNV Multivitamins/ Calcium (Thera-M Plus) 1 tab DAILY PO 03/17/21 09:00 04/13/21 08:07 Polyethylene Glycol (miraLAX) 17 gm DAILY PO 03/17/21 09:00 04/12/21 16:42 DC 04/10/21 08:18 Vitamin D (Vitamin D3) 50,000 unit WEEKLY PO 03/23/21 09:00 04/13/21 08:07 Cetirizine HCl (ZyrTEC) 10 mg DAILY PO 03/17/21 09:00 04/13/21 08:07 Sertraline HCl (Zoloft) 50 mg DAILY PO 03/17/21 09:00 03/18/21 18:34 DC 03/18/21 08:31 Denosumab (Prolia) 60 mg QMONTH SQ 04/15/21 09:00 UNV Phenytoin Sodium (Dilantin) 100 mg BID92 PO 03/17/21 09:00 Cancel Tramadol HCl (Ultram) 50 mg PRN BID PRN PO MOD-SEV PAIN 03/16/21 16:15 04/13/21 19:38 Trazodone HCl (Desyrel) 50 mg QHS PO 03/16/21 21:00 04/13/21 19:37 Ascorbic Acid (Vitamin C) 1,000 mg DAILY PO 03/17/21 09:00 04/13/21 08:07 Melatonin (Melatonin) 6 mg HS PO 03/16/21 21:00 04/13/21 19:36 Zinc Sulfate (Orazinc) 220 mg DAILY PO 03/17/21 09:00 04/13/21 08:07 Sertraline HCl (Zoloft) 75 mg DAILY PO 03/19/21 09:00 04/13/21 08:08 Olanzapine (ZyPREXA ZYDIS) 2.5 mg PRN Q2HR PRN PO PSYCHOSIS 03/19/21 20:15 04/07/21 15:55 Influenza Virus Vaccine Quadrival (Flulaval Quad [id number] Syringe) 0.5 ml ONCE ONCE VAX IM 03/25/21 09:00 03/25/21 09:01 DC 03/25/21 11:05 Gabapentin (Neurontin) 100 mg TID PO 03/24/21 21:00 03/26/21 11:42 DC 03/26/21 08:24 Gabapentin (Neurontin) 200 mg TID PO 03/26/21 14:00 03/29/21 16:00 DC 03/29/21 13:10 Valproic Acid (Depakene) 250 mg BID PO 03/29/21 21:00 04/02/21 10:15 DC 04/02/21 08:26 Valproic Acid (Depakene) 500 mg BID PO 04/02/21 21:00 04/13/21 19:36 Nystatin (Nystop) 1 belinda BID TP 04/03/21 21:00 04/13/21 19:37 Vitamin A/Vitamin D (Vitamin A & D Ointment) 1 belinda PRN Q1HR PRN TP SKIN PROTECTION 04/03/21 16:45 04/07/21 05:54 Quetiapine Fumarate (SEROquel) 12.5 mg 0900,1300,1700 PO 04/06/21 09:00 04/09/21 01:06 DC 04/08/21 17:03 Quetiapine Fumarate (SEROquel) 12.5 mg QID@0900,1200,1500,1700 PO 04/09/21 09:00 04/13/21 17:23 Phenytoin Sodium (Dilantin) 300 mg 1700 PO 04/12/21 17:00 04/13/21 17:23 Potassium Chloride (Klor-Con) 20 meq 0800,1700 PO 04/12/21 17:00 04/13/21 17:23 Polyethylene Glycol (miraLAX) 17 gm PRN DAILY PRN PO CONSTIPATION 04/12/21 16:45 I have reviewed the current psychotropics carefully including drug interactions. Risk benefit ratio favors no change other than as noted in my dictated progress note. Diagnosis: Problems: (1) Impulse control disorder, unspecified (2) Anxiety disorder, unspecified (3) Dementia, vascular, with depression (4) Dementia, vascular, with delusions (5) Dementia in Alzheimer's disease with depression (6) Dementia in Alzheimer's disease with delusions (7) Major neurocognitive disorder, due to vascular disease, with behavioral di sturbance, mild (8) Major depressive disorder with psychotic features (9) Intellectual disability GAMALIEL MALLOY MD Apr 13, 2021 21:54
--- NOTE | 2021-04-14 01:09 | NUR ---
Pt located in her bed this evening. Pt irritable when approached and non compliant with medications crushed in cola. HS medications administered via syringe. Pt combative and attempting to hit staff.
[2021-04-14] MEDS: LEVOTHYROXINE 50 MCG TABLET PO SCH (06:01)
[2021-04-14 06:26] VITALS: BP 131/78
--- NOTE | 2021-04-14 08:24 | NUR ---
Wound Care Wound care follow up for ischial wounds. Skin remains intact with pink skin. Cleansed area and applied A&D ointment. No other wounds noted on full skin inspection. Wound care will sign off at this time. Please reconsult if new wounds develop.
[2021-04-14] MEDS: SENNOSIDES 8.6 MG TABLET PO SCH ×2 (08:43→20:29)
[2021-04-14] MEDS: CETIRIZINE HCL 10 MG TABLET PO SCH (08:43)
[2021-04-14] MEDS: QUEtiapine 25 MG TABLET. PO SCH ×4 (08:43→17:22)
[2021-04-14] MEDS: VALPROATE ACID 250 MG/5 ML ORAL SOLUTION PO SCH ×2 (08:43→20:29)
[2021-04-14] MEDS: ASCORBIC ACID 500 MG TABLET PO SCH (08:43)
[2021-04-14] MEDS: POTASSIUM CHLORIDE 20 MEQ TABLET.ER. PO SCH ×2 (08:44→17:22)
[2021-04-14] MEDS: ZINC SULFATE 220 MG CAPSULE. PO SCH (08:44)
[2021-04-14] MEDS: ASPIRIN CHEWABLE 81 MG TABLET. PO SCH (08:44)
[2021-04-14] MEDS: SERTRALINE 50 MG TABLET. PO SCH (08:44)
[2021-04-14] MEDS: MULTIVITAMIN with MINERAL TABLET. PO SCH (08:44)
[2021-04-14] MEDS: NYSTATIN TOPICAL POWDER 15GM BOTTLE. TP SCH ×2 (09:00→20:30)
--- NOTE | 2021-04-14 16:16 | NUR ---
Nursing note: Patient in dinning room for morning medication and assessment. Medications taken crushed in pudding. She did need encouragement to take medications this shift. She has limited verbal interaction r/t intellectual disability, appears not to have pain per no facial grimacing noted at this time. Patient has said hi to peers & staff as she passes them in the mathews. She propels self in w/c, requires a [facility] or 2 person transfer. She continues to periodically yell or grunt out as well as being resistive to cares. She is currently resting in bed. Will continue to monitor.
[2021-04-14] MEDS: PHENYTOIN SODIUM EXTENDED 100 MG CAPSULE PO SCH (17:22)
[2021-04-14] MEDS: MIRTAZAPINE 7.5 MG TABLET. PO SCH (20:29)
[2021-04-14] MEDS: MELATONIN 3 MG TABLET PO SCH (20:30)
[2021-04-14] MEDS: traZODone 50 MG TABLET. PO SCH (20:30)
--- NOTE | 2021-04-14 21:53 | PDOC ---
Exam Note: Brooks Note: Please also refer to the separate dictated note~for this date of service dictated separately.~Patient seen individually. Discussed the patient with Nursing staff reviewed the chart.~Reviewed interim history and current functioning. Reviewed vital signs,~Labs/ Radiology~and current medications noted below. Continue current treatment with the changes noted in the dictated addendum note Assessment: Vital Signs/I&O: Vital Signs Date Time Temp Pulse Resp B/P (MAP) Pulse Ox O2 Delivery O2 Flow Rate FiO2 04/14/21 06:26 97.1 102 18 131/78 (95) 98 04/09/21 16:56 Room Air I & O 04/13/21 04/13/21 04/14/21 15:00 23:00 07:00 Intake Total 840 ml 460 ml Balance 840 ml 460 ml Current Medications: Meds: Current Medications Medications (Trade) Dose Ordered Sig/Kassidy Route PRN Reason Start Time Stop Time Status Last Admin Dose Admin Acetaminophen (Tylenol) 650 mg PRN Q6HRS PRN PO MILD PAIN / TEMP > 100.3'F 03/16/21 15:45 03/30/21 15:04 Multi-Ingredient Ointment (Analgesic [place]) 1 belinda PRN QID PRN TP MUSCLE PAIN 03/16/21 15:45 Al Hydroxide/Mg Hydroxide (Mylanta Plus Xs) 15 ml PRN AFTMEALHC PRN PO DYSPEPSIA 03/16/21 15:45 Magnesium Hydroxide (Milk Of Magnesia) 2,400 mg PRN QHS PRN PO CONSTIPATION 03/16/21 15:45 Acetaminophen (Tylenol) 650 mg PRN Q6HRS PRN PO pain or fever 03/16/21 16:00 UNV Aspirin (Aspirin Chewable) 81 mg DAILY PO 03/17/21 09:00 04/14/21 08:44 Levothyroxine Sodium (Synthroid) 50 mcg DAILY06 PO 03/17/21 06:00 04/14/21 06:01 Al Hydroxide/Mg Hydroxide (Mylanta Plus Xs) 15 ml PRN AFTMEALHC PRN PO DYSPEPSIA 03/16/21 16:00 UNV Magnesium Hydroxide (Milk Of Magnesia) 2,400 mg PRN QHS PRN PO CONSTIPATION 03/16/21 16:00 UNV Metolazone (Zaroxolyn) 5 mg QMWF@0900 PO 03/18/21 09:00 04/13/21 08:07 Mirtazapine (Remeron) 7.5 mg QHS PO 03/16/21 21:00 04/14/21 20:29 Phenytoin Sodium (Dilantin) 300 mg QHS PO 03/16/21 21:00 04/12/21 11:07 DC 04/11/21 21:03 Potassium Chloride (Klor-Con) 20 meq BID PO 03/16/21 21:00 04/12/21 11:07 DC 04/12/21 09:11 Sennosides (Senna) 8.6 mg BID PO 03/16/21 21:00 04/14/21 20:29 Non-Formulary Medication (Methyl Salicylate/ Menthol (Analgesic [place])) 1 belinda PRN QID PRN TP MUSCLE PAIN 03/16/21 16:00 UNV Multivitamins/ Calcium (Thera-M Plus) 1 tab DAILY PO 03/17/21 09:00 04/14/21 08:44 Polyethylene Glycol (miraLAX) 17 gm DAILY PO 03/17/21 09:00 04/12/21 16:42 DC 04/10/21 08:18 Vitamin D (Vitamin D3) 50,000 unit WEEKLY PO 03/23/21 09:00 04/13/21 08:07 Cetirizine HCl (ZyrTEC) 10 mg DAILY PO 03/17/21 09:00 04/14/21 08:43 Sertraline HCl (Zoloft) 50 mg DAILY PO 03/17/21 09:00 03/18/21 18:34 DC 03/18/21 08:31 Denosumab (Prolia) 60 mg QMONTH SQ 04/15/21 09:00 UNV Phenytoin Sodium (Dilantin) 100 mg BID92 PO 03/17/21 09:00 Cancel Tramadol HCl (Ultram) 50 mg PRN BID PRN PO MOD-SEV PAIN 03/16/21 16:15 04/13/21 19:38 Trazodone HCl (Desyrel) 50 mg QHS PO 03/16/21 21:00 04/14/21 20:30 Ascorbic Acid (Vitamin C) 1,000 mg DAILY PO 03/17/21 09:00 04/14/21 08:43 Melatonin (Melatonin) 6 mg HS PO 03/16/21 21:00 04/14/21 20:30 Zinc Sulfate (Orazinc) 220 mg DAILY PO 03/17/21 09:00 04/14/21 08:44 Sertraline HCl (Zoloft) 75 mg DAILY PO 03/19/21 09:00 04/14/21 08:44 Olanzapine (ZyPREXA ZYDIS) 2.5 mg PRN Q2HR PRN PO PSYCHOSIS 03/19/21 20:15 04/07/21 15:55 Influenza Virus Vaccine Quadrival (Flulaval Quad [id number] Syringe) 0.5 ml ONCE ONCE VAX IM 03/25/21 09:00 03/25/21 09:01 DC 03/25/21 11:05 Gabapentin (Neurontin) 100 mg TID PO 03/24/21 21:00 03/26/21 11:42 DC 03/26/21 08:24 Gabapentin (Neurontin) 200 mg TID PO 03/26/21 14:00 03/29/21 16:00 DC 03/29/21 13:10 Valproic Acid (Depakene) 250 mg BID PO 03/29/21 21:00 04/02/21 10:15 DC 04/02/21 08:26 Valproic Acid (Depakene) 500 mg BID PO 04/02/21 21:00 04/14/21 20:29 Nystatin (Nystop) 1 belinda BID TP 04/03/21 21:00 04/14/21 20:30 Vitamin A/Vitamin D (Vitamin A & D Ointment) 1 belinda PRN Q1HR PRN TP SKIN PROTECTION 04/03/21 16:45 04/07/21 05:54 Quetiapine Fumarate (SEROquel) 12.5 mg 0900,1300,1700 PO 04/06/21 09:00 04/09/21 01:06 DC 04/08/21 17:03 Quetiapine Fumarate (SEROquel) 12.5 mg QID@0900,1200,1500,1700 PO 04/09/21 09:00 04/14/21 17:22 Phenytoin Sodium (Dilantin) 300 mg 1700 PO 04/12/21 17:00 04/14/21 17:22 Potassium Chloride (Klor-Con) 20 meq 0800,1700 PO 04/12/21 17:00 04/14/21 17:22 Polyethylene Glycol (miraLAX) 17 gm PRN DAILY PRN PO CONSTIPATION 04/12/21 16:45 I have reviewed the current psychotropics carefully including drug interactions. Risk benefit ratio favors no change other than as noted in my dictated progress note. Diagnosis: Problems: (1) Impulse control disorder, unspecified (2) Anxiety disorder, unspecified (3) Major depressive disorder with psychotic features (4) Intellectual disability GAMALIEL MALLOY MD Apr 14, 2021 21:53
--- NOTE | 2021-04-15 00:27 | NUR ---
Nursing Note Pt lays in bed moaning non stop right after shift change. Attempts to refuse her meds but presented them in a chocolate shake that she took willingly. Pt takes meds at that point, settles down and is now sleeping comfortably.
[2021-04-15] MEDS: LEVOTHYROXINE 50 MCG TABLET PO SCH (05:24)
[2021-04-15 05:42] VITALS: BP 125/74
[2021-04-15] MEDS: VALPROATE ACID 250 MG/5 ML ORAL SOLUTION PO SCH ×2 (08:09→20:54)
[2021-04-15] MEDS: metOLazone 5 MG TABLET PO SCH (08:10)
[2021-04-15] MEDS: ZINC SULFATE 220 MG CAPSULE. PO SCH (08:10)
[2021-04-15] MEDS: SERTRALINE 50 MG TABLET. PO SCH (08:10)
[2021-04-15] MEDS: MULTIVITAMIN with MINERAL TABLET. PO SCH (08:10)
[2021-04-15] MEDS: QUEtiapine 25 MG TABLET. PO SCH ×4 (08:10→17:04)
[2021-04-15] MEDS: SENNOSIDES 8.6 MG TABLET PO SCH ×2 (08:11→20:54)
[2021-04-15] MEDS: POTASSIUM CHLORIDE 20 MEQ TABLET.ER. PO SCH ×2 (08:11→17:04)
[2021-04-15] MEDS: ASCORBIC ACID 500 MG TABLET PO SCH (08:11)
[2021-04-15] MEDS: ASPIRIN CHEWABLE 81 MG TABLET. PO SCH (08:11)
[2021-04-15] MEDS: CETIRIZINE HCL 10 MG TABLET PO SCH (08:12)
[2021-04-15] MEDS: NYSTATIN TOPICAL POWDER 15GM BOTTLE. TP SCH ×2 (08:12→20:54)
--- NOTE | 2021-04-15 08:19 | PDOC ---
Exam Note: Brooks Note: This note is a late entry for 04/13/2021 covers elements not covered in my initial note. Subjective: The patient was seen individually in the evening of 04/13/2021 with Amina NEWMAN, discussed and reviewed the chart. The patient slept 6-1/2 hours previous night. Patient continues to have mood lability, yelling out at times, but less so than before. Review of Systems: Ambulation impaired in wheelchair. No CV, , pulmonary, eye, ENT system symptoms on review. Reliability poor. Mental Status Exam: I met with her in her room. The patient is disorganized but not very verbally interactive. Insight and judgment, recent and remote memory, attention and concentration, fund of knowledge is poor consistent with her diagnoses. Laboratory Data: Reviewed. Impression: Major depressive disorder with psychotic features. Anxiety disorder unspecified. Impulse control disorder unspecified. Intellectual disability. Plan: Continue rest psychotropics unchanged. Assessment: Vital Signs/I&O: Vital Signs Date Time Temp Pulse Resp B/P (MAP) Pulse Ox O2 Delivery O2 Flow Rate FiO2 04/15/21 05:42 97.2 74 16 125/74 (91) 97 04/09/21 16:56 Room Air I & O 04/14/21 04/14/21 04/15/21 15:00 23:00 07:00 Intake Total 480 ml 0 ml Balance 480 ml 0 ml Current Medications: Meds: Current Medications Medications (Trade) Dose Ordered Sig/Kassidy Route PRN Reason Start Time Stop Time Status Last Admin Dose Admin Acetaminophen (Tylenol) 650 mg PRN Q6HRS PRN PO MILD PAIN / TEMP > 100.3'F 03/16/21 15:45 03/30/21 15:04 Multi-Ingredient Ointment (Analgesic [place]) 1 belinda PRN QID PRN TP MUSCLE PAIN 03/16/21 15:45 Al Hydroxide/Mg Hydroxide (Mylanta Plus Xs) 15 ml PRN AFTMEALHC PRN PO DYSPEPSIA 03/16/21 15:45 Magnesium Hydroxide (Milk Of Magnesia) 2,400 mg PRN QHS PRN PO CONSTIPATION 03/16/21 15:45 Acetaminophen (Tylenol) 650 mg PRN Q6HRS PRN PO pain or fever 03/16/21 16:00 UNV Aspirin (Aspirin Chewable) 81 mg DAILY PO 03/17/21 09:00 04/14/21 08:44 Levothyroxine Sodium (Synthroid) 50 mcg DAILY06 PO 03/17/21 06:00 04/15/21 05:24 Al Hydroxide/Mg Hydroxide (Mylanta Plus Xs) 15 ml PRN AFTMEALHC PRN PO DYSPEPSIA 03/16/21 16:00 UNV Magnesium Hydroxide (Milk Of Magnesia) 2,400 mg PRN QHS PRN PO CONSTIPATION 03/16/21 16:00 UNV Metolazone (Zaroxolyn) 5 mg QMWF@0900 PO 03/18/21 09:00 04/13/21 08:07 Mirtazapine (Remeron) 7.5 mg QHS PO 03/16/21 21:00 04/14/21 20:29 Phenytoin Sodium (Dilantin) 300 mg QHS PO 03/16/21 21:00 04/12/21 11:07 DC 04/11/21 21:03 Potassium Chloride (Klor-Con) 20 meq BID PO 03/16/21 21:00 04/12/21 11:07 DC 04/12/21 09:11 Sennosides (Senna) 8.6 mg BID PO 03/16/21 21:00 04/14/21 20:29 Non-Formulary Medication (Methyl Salicylate/ Menthol (Analgesic [place])) 1 belinda PRN QID PRN TP MUSCLE PAIN 03/16/21 16:00 UNV Multivitamins/ Calcium (Thera-M Plus) 1 tab DAILY PO 03/17/21 09:00 04/14/21 08:44 Polyethylene Glycol (miraLAX) 17 gm DAILY PO 03/17/21 09:00 04/12/21 16:42 DC 04/10/21 08:18 Vitamin D (Vitamin D3) 50,000 unit WEEKLY PO 03/23/21 09:00 04/13/21 08:07 Cetirizine HCl (ZyrTEC) 10 mg DAILY PO 03/17/21 09:00 04/14/21 08:43 Sertraline HCl (Zoloft) 50 mg DAILY PO 03/17/21 09:00 03/18/21 18:34 DC 03/18/21 08:31 Denosumab (Prolia) 60 mg QMONTH SQ 04/15/21 09:00 UNV Phenytoin Sodium (Dilantin) 100 mg BID92 PO 03/17/21 09:00 Cancel Tramadol HCl (Ultram) 50 mg PRN BID PRN PO MOD-SEV PAIN 03/16/21 16:15 04/13/21 19:38 Trazodone HCl (Desyrel) 50 mg QHS PO 03/16/21 21:00 04/14/21 20:30 Ascorbic Acid (Vitamin C) 1,000 mg DAILY PO 03/17/21 09:00 04/14/21 08:43 Melatonin (Melatonin) 6 mg HS PO 03/16/21 21:00 04/14/21 20:30 Zinc Sulfate (Orazinc) 220 mg DAILY PO 03/17/21 09:00 04/14/21 08:44 Sertraline HCl (Zoloft) 75 mg DAILY PO 03/19/21 09:00 04/14/21 08:44 Olanzapine (ZyPREXA ZYDIS) 2.5 mg PRN Q2HR PRN PO PSYCHOSIS 03/19/21 20:15 04/07/21 15:55 Influenza Virus Vaccine Quadrival (Flulaval Quad [id number] Syringe) 0.5 ml ONCE ONCE VAX IM 03/25/21 09:00 03/25/21 09:01 DC 03/25/21 11:05 Gabapentin (Neurontin) 100 mg TID PO 03/24/21 21:00 03/26/21 11:42 DC 03/26/21 08:24 Gabapentin (Neurontin) 200 mg TID PO 03/26/21 14:00 03/29/21 16:00 DC 03/29/21 13:10 Valproic Acid (Depakene) 250 mg BID PO 03/29/21 21:00 04/02/21 10:15 DC 04/02/21 08:26 Valproic Acid (Depakene) 500 mg BID PO 04/02/21 21:00 04/14/21 20:29 Nystatin (Nystop) 1 belinda BID TP 04/03/21 21:00 04/14/21 20:30 Vitamin A/Vitamin D (Vitamin A & D Ointment) 1 belinda PRN Q1HR PRN TP SKIN PROTECTION 04/03/21 16:45 04/07/21 05:54 Quetiapine Fumarate (SEROquel) 12.5 mg 0900,1300,1700 PO 04/06/21 09:00 04/09/21 01:06 DC 04/08/21 17:03 Quetiapine Fumarate (SEROquel) 12.5 mg QID@0900,1200,1500,1700 PO 04/09/21 09:00 04/14/21 17:22 Phenytoin Sodium (Dilantin) 300 mg 1700 PO 04/12/21 17:00 04/14/21 17:22 Potassium Chloride (Klor-Con) 20 meq 0800,1700 PO 04/12/21 17:00 04/14/21 17:22 Polyethylene Glycol (miraLAX) 17 gm PRN DAILY PRN PO CONSTIPATION 04/12/21 16:45 I have reviewed the current psychotropics carefully including drug interactions. Risk benefit ratio favors no change other than as noted in my dictated progress note. Diagnosis: Problems: (1) Impulse control disorder, unspecified (2) Anxiety disorder, unspecified (3) Major depressive disorder with psychotic features (4) Intellectual disability GAMALIEL MALLOY MD Apr 15, 2021 08:19
--- NOTE | 2021-04-15 08:39 | PDOC ---
Exam Note: Brooks Note: This note is a late entry for 04/14/2021 covers elements not covered in my initial note. Subjective: The patient was seen individually in the evening of 04/14/2021 with Rae NEWMAN, discussed and reviewed the chart. The patient slept 8 hours previous night. She has been resistive, combative with medications. Valproic acid level is therapeutic at 57. Review of Systems: Ambulation impaired in wheelchair. No CV, , pulmonary, eye, ENT system symptoms on review. Reliability poor. Mental Status Exam: The patient is oriented to herself and situation. Insight and judgment, recent and remote memory, attention and concentration, fund of knowledge is poor consistent with her diagnoses. Laboratory Data: Reviewed. Impression: Major depressive disorder with psychotic features. Anxiety disorder unspecified. Impulse control disorder unspecified. Intellectual disability. Plan: Continue rest psychotropics unchanged. Patient continues to have mood lability, yelling but less so than before. Assessment: Vital Signs/I&O: Vital Signs Date Time Temp Pulse Resp B/P (MAP) Pulse Ox O2 Delivery O2 Flow Rate FiO2 04/15/21 05:42 97.2 74 16 125/74 (91) 97 04/09/21 16:56 Room Air I & O 04/14/21 04/14/21 04/15/21 15:00 23:00 07:00 Intake Total 480 ml 0 ml Balance 480 ml 0 ml Current Medications: Meds: Current Medications Medications (Trade) Dose Ordered Sig/Kassidy Route PRN Reason Start Time Stop Time Status Last Admin Dose Admin Acetaminophen (Tylenol) 650 mg PRN Q6HRS PRN PO MILD PAIN / TEMP > 100.3'F 03/16/21 15:45 03/30/21 15:04 Multi-Ingredient Ointment (Analgesic [place]) 1 belinda PRN QID PRN TP MUSCLE PAIN 03/16/21 15:45 Al Hydroxide/Mg Hydroxide (Mylanta Plus Xs) 15 ml PRN AFTMEALHC PRN PO DYSPEPSIA 03/16/21 15:45 Magnesium Hydroxide (Milk Of Magnesia) 2,400 mg PRN QHS PRN PO CONSTIPATION 03/16/21 15:45 Acetaminophen (Tylenol) 650 mg PRN Q6HRS PRN PO pain or fever 03/16/21 16:00 UNV Aspirin (Aspirin Chewable) 81 mg DAILY PO 03/17/21 09:00 04/15/21 08:11 Levothyroxine Sodium (Synthroid) 50 mcg DAILY06 PO 03/17/21 06:00 04/15/21 05:24 Al Hydroxide/Mg Hydroxide (Mylanta Plus Xs) 15 ml PRN AFTMEALHC PRN PO DYSPEPSIA 03/16/21 16:00 UNV Magnesium Hydroxide (Milk Of Magnesia) 2,400 mg PRN QHS PRN PO CONSTIPATION 03/16/21 16:00 UNV Metolazone (Zaroxolyn) 5 mg QMWF@0900 PO 03/18/21 09:00 04/15/21 08:10 Mirtazapine (Remeron) 7.5 mg QHS PO 03/16/21 21:00 04/14/21 20:29 Phenytoin Sodium (Dilantin) 300 mg QHS PO 03/16/21 21:00 04/12/21 11:07 DC 04/11/21 21:03 Potassium Chloride (Klor-Con) 20 meq BID PO 03/16/21 21:00 04/12/21 11:07 DC 04/12/21 09:11 Sennosides (Senna) 8.6 mg BID PO 03/16/21 21:00 04/15/21 08:11 Non-Formulary Medication (Methyl Salicylate/ Menthol (Analgesic [place])) 1 belinda PRN QID PRN TP MUSCLE PAIN 03/16/21 16:00 UNV Multivitamins/ Calcium (Thera-M Plus) 1 tab DAILY PO 03/17/21 09:00 04/15/21 08:10 Polyethylene Glycol (miraLAX) 17 gm DAILY PO 03/17/21 09:00 04/12/21 16:42 DC 04/10/21 08:18 Vitamin D (Vitamin D3) 50,000 unit WEEKLY PO 03/23/21 09:00 04/13/21 08:07 Cetirizine HCl (ZyrTEC) 10 mg DAILY PO 03/17/21 09:00 04/15/21 08:12 Sertraline HCl (Zoloft) 50 mg DAILY PO 03/17/21 09:00 03/18/21 18:34 DC 03/18/21 08:31 Denosumab (Prolia) 60 mg QMONTH SQ 10/13/21 09:00 UNV Phenytoin Sodium (Dilantin) 100 mg BID92 PO 03/17/21 09:00 Cancel Tramadol HCl (Ultram) 50 mg PRN BID PRN PO MOD-SEV PAIN 03/16/21 16:15 04/13/21 19:38 Trazodone HCl (Desyrel) 50 mg QHS PO 03/16/21 21:00 04/14/21 20:30 Ascorbic Acid (Vitamin C) 1,000 mg DAILY PO 03/17/21 09:00 04/15/21 08:11 Melatonin (Melatonin) 6 mg HS PO 03/16/21 21:00 04/14/21 20:30 Zinc Sulfate (Orazinc) 220 mg DAILY PO 03/17/21 09:00 04/15/21 08:10 Sertraline HCl (Zoloft) 75 mg DAILY PO 03/19/21 09:00 04/15/21 08:10 Olanzapine (ZyPREXA ZYDIS) 2.5 mg PRN Q2HR PRN PO PSYCHOSIS 03/19/21 20:15 04/07/21 15:55 Influenza Virus Vaccine Quadrival (Flulaval Quad [id number] Syringe) 0.5 ml ONCE ONCE VAX IM 03/25/21 09:00 03/25/21 09:01 DC 03/25/21 11:05 Gabapentin (Neurontin) 100 mg TID PO 03/24/21 21:00 03/26/21 11:42 DC 03/26/21 08:24 Gabapentin (Neurontin) 200 mg TID PO 03/26/21 14:00 03/29/21 16:00 DC 03/29/21 13:10 Valproic Acid (Depakene) 250 mg BID PO 03/29/21 21:00 04/02/21 10:15 DC 04/02/21 08:26 Valproic Acid (Depakene) 500 mg BID PO 04/02/21 21:00 04/15/21 08:09 Nystatin (Nystop) 1 belinda BID TP 04/03/21 21:00 04/15/21 08:12 Vitamin A/Vitamin D (Vitamin A & D Ointment) 1 beilnda PRN Q1HR PRN TP SKIN PROTECTION 04/03/21 16:45 04/07/21 05:54 Quetiapine Fumarate (SEROquel) 12.5 mg 0900,1300,1700 PO 04/06/21 09:00 04/09/21 01:06 DC 04/08/21 17:03 Quetiapine Fumarate (SEROquel) 12.5 mg QID@0900,1200,1500,1700 PO 04/09/21 09:00 04/15/21 08:10 Phenytoin Sodium (Dilantin) 300 mg 1700 PO 04/12/21 17:00 04/14/21 17:22 Potassium Chloride (Klor-Con) 20 meq 0800,1700 PO 04/12/21 17:00 04/15/21 08:11 Polyethylene Glycol (miraLAX) 17 gm PRN DAILY PRN PO CONSTIPATION 04/12/21 16:45 I have reviewed the current psychotropics carefully including drug interactions. Risk benefit ratio favors no change other than as noted in my dictated progress note. Diagnosis: Problems: (1) Impulse control disorder, unspecified (2) Anxiety disorder, unspecified (3) Major depressive disorder with psychotic features (4) Intellectual disability GAMALIEL MALLOY MD Apr 15, 2021 08:39
[2021-04-15] MEDS ORDERED: DENOSUMAB 60 MG/ML DISP.SYRIN. SQ SCH (09:00)
--- NOTE | 2021-04-15 12:42 | NUR ---
RN Day Shift Note: pt presents with relaxed mood until approached with ensure to be given medications. pt shakes her fist at staff when trying to be given medication. with extra support and encouragement from staff pt eventually drank her medication in ensure. pt also gave resistance to receiving her medication at lunch time, but with encouragement took it. pt continues to wheel herself in the hallway and appears content most of the time. pt will let staff know when she is upset, by mumbling loudly. pt's vitals are WNL. pt slept 7.75 hours last night. will continue to monitor.
[2021-04-15 15:35] VITALS: BP 133/81
[2021-04-15] MEDS: PHENYTOIN SODIUM EXTENDED 100 MG CAPSULE PO SCH (17:04)
[2021-04-15] MEDS: traZODone 50 MG TABLET. PO SCH (20:54)
[2021-04-15] MEDS: MELATONIN 3 MG TABLET PO SCH (20:54)
[2021-04-15] MEDS: MIRTAZAPINE 7.5 MG TABLET. PO SCH (20:54)
--- NOTE | 2021-04-15 22:59 | PDOC ---
Exam Note: Brooks Note: This note covers elements not covered in my initial note. Subjective: The patient was seen individually in the evening of 04/15/2021 with Carlota NEWAMN, discussed and reviewed the chart. The patient slept 7-3/4 hours previous night. She remains confused, anxious, restless, wheeling herself around the dining room as I met with her this evening, resistive to medications. Katty, social secretary had called me earlier in the day that group home had some hesitation the patient being on Seroquel but they will accept her back if we can have a taper in place. After careful review of her history, response to prior treatments, we will make a plan for taper but not for about 90 days and we will have a better sense of this closer to her discharge. Repeat UA. Review of Systems: Ambulation impaired in wheelchair. No CV, , pulmonary, eye, ENT system symptoms on review. Reliability poor. Mental Status Exam: The patient is oriented to herself and situation. Insight and judgment, recent and remote memory, attention and concentration, fund of knowledge is poor consistent with her diagnoses. Laboratory Data: Reviewed. Impression: Major depressive disorder with psychotic features. Anxiety diso rder unspecified. Impulse control disorder unspecified. Intellectual disability. Plan: Continue rest psychotropics unchanged. Assessment: Vital Signs/I&O: Vital Signs Date Time Temp Pulse Resp B/P (MAP) Pulse Ox O2 Delivery O2 Flow Rate FiO2 04/15/21 15:35 97.6 66 18 133/81 (98) 95 04/09/21 16:56 Room Air I & O 04/14/21 04/14/21 04/15/21 15:00 23:00 07:00 Intake Total 480 ml 0 ml Balance 480 ml 0 ml Current Medications: Meds: Current Medications Medications (Trade) Dose Ordered Sig/Kassidy Route PRN Reason Start Time Stop Time Status Last Admin Dose Admin Acetaminophen (Tylenol) 650 mg PRN Q6HRS PRN PO MILD PAIN / TEMP > 100.3'F 03/16/21 15:45 03/30/21 15:04 Multi-Ingredient Ointment (Analgesic [place]) 1 belinda PRN QID PRN TP MUSCLE PAIN 03/16/21 15:45 Al Hydroxide/Mg Hydroxide (Mylanta Plus Xs) 15 ml PRN AFTMEALHC PRN PO DYSPEPSIA 03/16/21 15:45 Magnesium Hydroxide (Milk Of Magnesia) 2,400 mg PRN QHS PRN PO 2ND CHOICE CONSTIPATION 03/16/21 15:45 Acetaminophen (Tylenol) 650 mg PRN Q6HRS PRN PO pain or fever 03/16/21 16:00 UNV Aspirin (Aspirin Chewable) 81 mg DAILY PO 03/17/21 09:00 04/15/21 08:11 Levothyroxine Sodium (Synthroid) 50 mcg DAILY06 PO 03/17/21 06:00 04/15/21 05:24 Al Hydroxide/Mg Hydroxide (Mylanta Plus Xs) 15 ml PRN AFTMEALHC PRN PO DYSPEPSIA 03/16/21 16:00 UNV Magnesium Hydroxide (Milk Of Magnesia) 2,400 mg PRN QHS PRN PO CONSTIPATION 03/16/21 16:00 UNV Metolazone (Zaroxolyn) 5 mg QMWF@0900 PO 03/18/21 09:00 04/15/21 08:10 Mirtazapine (Remeron) 7.5 mg QHS PO 03/16/21 21:00 04/15/21 20:54 Phenytoin Sodium (Dilantin) 300 mg QHS PO 03/16/21 21:00 04/12/21 11:07 DC 04/11/21 21:03 Potassium Chloride (Klor-Con) 20 meq BID PO 03/16/21 21:00 04/12/21 11:07 DC 04/12/21 09:11 Sennosides (Senna) 8.6 mg BID PO 03/16/21 21:00 04/15/21 20:54 Non-Formulary Medication (Methyl Salicylate/ Menthol (Analgesic [place])) 1 belinda PRN QID PRN TP MUSCLE PAIN 03/16/21 16:00 UNV Multivitamins/ Calcium (Thera-M Plus) 1 tab DAILY PO 03/17/21 09:00 04/15/21 08:10 Polyethylene Glycol (miraLAX) 17 gm DAILY PO 03/17/21 09:00 04/12/21 16:42 DC 04/10/21 08:18 Vitamin D (Vitamin D3) 50,000 unit WEEKLY PO 03/23/21 09:00 04/13/21 08:07 Cetirizine HCl (ZyrTEC) 10 mg DAILY PO 03/17/21 09:00 04/15/21 08:12 Sertraline HCl (Zoloft) 50 mg DAILY PO 03/17/21 09:00 03/18/21 18:34 DC 03/18/21 08:31 Denosumab (Prolia) 60 mg QMONTH SQ 04/15/21 09:00 UNV Phenytoin Sodium (Dilantin) 100 mg BID92 PO 03/17/21 09:00 Cancel Tramadol HCl (Ultram) 50 mg PRN BID PRN PO MOD-SEV PAIN 03/16/21 16:15 04/13/21 19:38 Trazodone HCl (Desyrel) 50 mg QHS PO 03/16/21 21:00 04/15/21 20:54 Ascorbic Acid (Vitamin C) 1,000 mg DAILY PO 03/17/21 09:00 04/15/21 08:11 Melatonin (Melatonin) 6 mg HS PO 03/16/21 21:00 04/15/21 20:54 Zinc Sulfate (Orazinc) 220 mg DAILY PO 03/17/21 09:00 04/15/21 08:10 Sertraline HCl (Zoloft) 75 mg DAILY PO 03/19/21 09:00 04/15/21 08:10 Olanzapine (ZyPREXA ZYDIS) 2.5 mg PRN Q2HR PRN PO PSYCHOSIS 03/19/21 20:15 04/07/21 15:55 Influenza Virus Vaccine Quadrival (Flulaval Quad [id number] Syringe) 0.5 ml ONCE ONCE VAX IM 03/25/21 09:00 03/25/21 09:01 DC 03/25/21 11:05 Gabapentin (Neurontin) 100 mg TID PO 03/24/21 21:00 03/26/21 11:42 DC 03/26/21 08:24 Gabapentin (Neurontin) 200 mg TID PO 03/26/21 14:00 03/29/21 16:00 DC 03/29/21 13:10 Valproic Acid (Depakene) 250 mg BID PO 03/29/21 21:00 04/02/21 10:15 DC 04/02/21 08:26 Valproic Acid (Depakene) 500 mg BID PO 04/02/21 21:00 04/15/21 20:54 Nystatin (Nystop) 1 belinda BID TP 04/03/21 21:00 04/15/21 20:54 Vitamin A/Vitamin D (Vitamin A & D Ointment) 1 belinda PRN Q1HR PRN TP SKIN PROTECTION 04/03/21 16:45 04/07/21 05:54 Quetiapine Fumarate (SEROquel) 12.5 mg 0900,1300,1700 PO 04/06/21 09:00 04/09/21 01:06 DC 04/08/21 17:03 Quetiapine Fumarate (SEROquel) 12.5 mg QID@0900,1200,1500,1700 PO 04/09/21 09:00 04/15/21 17:04 Phenytoin Sodium (Dilantin) 300 mg 1700 PO 04/12/21 17:00 04/15/21 17:04 Potassium Chloride (Klor-Con) 20 meq 0800,1700 PO 04/12/21 17:00 04/15/21 17:04 Polyethylene Glycol (miraLAX) 17 gm PRN DAILY PRN PO 1ST CHOICE CONSTIPATION 04/12/21 16:45 I have reviewed the current psychotropics carefully including drug interactions. Risk benefit ratio favors no change other than as noted in my dictated progress note. Diagnosis: Problems: (1) Impulse control disorder, unspecified (2) Anxiety disorder, unspecified (3) Major depressive disorder with psychotic features (4) Intellectual disability GAMALIEL MALLOY MD Apr 15, 2021 22:59
[2021-04-16] MEDS: LEVOTHYROXINE 50 MCG TABLET PO SCH (06:00)
[2021-04-16 06:33] VITALS: BP 132/70
[2021-04-16] MEDS: VALPROATE ACID 250 MG/5 ML ORAL SOLUTION PO SCH ×2 (08:23→20:41)
[2021-04-16] MEDS: ZINC SULFATE 220 MG CAPSULE. PO SCH (08:23)
[2021-04-16] MEDS: CETIRIZINE HCL 10 MG TABLET PO SCH (08:23)
[2021-04-16] MEDS: ASPIRIN CHEWABLE 81 MG TABLET. PO SCH (08:23)
[2021-04-16] MEDS: ASCORBIC ACID 500 MG TABLET PO SCH (08:24)
[2021-04-16] MEDS: SERTRALINE 50 MG TABLET. PO SCH (08:24)
[2021-04-16] MEDS: QUEtiapine 25 MG TABLET. PO SCH ×4 (08:24→17:10)
[2021-04-16] MEDS: SENNOSIDES 8.6 MG TABLET PO SCH ×2 (08:25→20:42)
[2021-04-16] MEDS: MULTIVITAMIN with MINERAL TABLET. PO SCH (08:25)
[2021-04-16] MEDS: POTASSIUM CHLORIDE 20 MEQ TABLET.ER. PO SCH ×2 (08:25→17:14)
[2021-04-16] MEDS: NYSTATIN TOPICAL POWDER 15GM BOTTLE. TP SCH ×2 (09:24→20:42)
--- NOTE | 2021-04-16 11:04 | NUR ---
WEEKLY ACTIVITY THERAPY NOTE Date of Admission:03/16/21 Date of AT Assessment: 03/18 Precipitating behaviors that initiated intake and admission: PA towards peers, chasing peers in mathews, yelling & screaming, refusing medications. Goal aimed: increase stress management and relaxation skills Initial Goal: Pt will participate in at least three individual or group Activity Therapy sessions before discharge Goal repeated 04/02 Weekly progress towards goal: on track(04/13-[employer]) Group participation level: 1 min Weekly highlights: watched a movie for a few minutes on Tuesday afternoon Behaviors observed: wandering, pleasant and calm Plan: no change to goal Beneficial adaptations: encouragement
--- NOTE | 2021-04-16 12:25 | TX PLAN ---
Interdisciplinary Tx Plan Admission Information Mar 16, 2021 at 15:10 Legal Status (on Admission): Voluntary DPOA/Guardian Name: Fariba Odonnell-Sister/Guardian Contact Other Contact Name: Monica Omalley (DONTE) Other Contact Verified Code Status: Full Code Allergies: Coded Allergies: No Known Drug Allergies (Unverified , 06/22/20) Diagnoses Primary Diagnosis: (1) Intellectual disability (2) Impulse control disorder, unspecified (3) Anxiety disorder, unspecified (4) Major neurocognitive disorder, due to vascular disease, with behavioral disturbance, mild (5) Major depressive disorder with psychotic features Reasons for Admission: Aggressive, Agitated, Sig. Change Appetite, Combative, Confusion/Disoriented, Poor impulse control Problem in Patient's Words: Per sister, "Cate Shukla struggles with change and the whole covid status has been a struggle. At her facility they had been back on quarantine and just recently got out of that. She has been hitting others and I have talked with her about that. With Cate Shukla's intellectual disability, she only understands so much." Additional Admission Comments: None noted at this time. Problems Active Problems: Aggressive, combative, agitated, not eating, poor impulse control Inactive Problems: None noted at this time. Pt Strengths/Limitations Ability for [place]: Poor Cognitive Functioning/Ability: Poor Communication Skills/Ability: Poor Financial Resources: Fair Insight/Judgement: Poor Intellectual Ability: Poor Physical Health: Fair Social Skills: Poor Stability in Family: Good Stability in School/Work: Fair Verbal Skills: Poor Discharge Criteria Discharge Criteria: No need for close observ., Adequate arrangements @DC, Verbal commit med comply, Improved behavior, Improved mood/thought Other Discharge Comments: None noted at this time. Preliminary Discharge Plan Preliminary DC Plan: Current Living Arrange. Special Precautions Special Precautions: Agitation/Assault Fall Risk: Moderate Other Precautions (specify): Pt uses WC Initial D/C Plan Plan is for pt to return to [facility]. Identified Discharge Needs: Pt to continue to be supported by services and resources through [facility] and her family. Currently Utilized Resources Currently Utilized Resources/P: PCP-Dr. Gerardo Rincon at [facility] Sister/Guardian-Fariba Odonnell Referrals Community Resources: None noted at this time. Identified Problems/Hx/Goals Objectives/Short-Term Goals Short Term Goals: Control abnormal behavior, Dec. Aggression, Dec. Outbursts, Improved Social Skills, Medication Stabilization, Monitor Med Effects, Prevent Deterioration Short Term Goals in Patient's: Would like to get her behaviors such as hitting under control. Interventions/Frequency Staff Interventions/Frequency&: Psychiatry to assess pt three times per week for medication management. Nursing to assess behaviors, monitor medications, and complete 15 minute checks daily. Social work to see pt at least two times weekly to aid in return to placement. Activities to encourage pt to participate in group activities daily. 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 She preferred wire stripping over shredding papers as she realized that she was paid more for stripping rubber. 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 Cate Shukla attended till she was 17y.o. Reportedly, Cate Shukla learned how to tell time by looking a the [employer] years ago and would be able to associate when certain television shows would come on. Community Follow-up PCP Community Provider/Family Inpu: Pt sister/guardian aware of pt hospitalization and is available for further information as needed. Treatment Plan Explained Patient/Can Coverer had this treatment plan explained to him/her as indicated by the signature below and has been given the opportunity to ask questions and make suggestions: Date: Patient/Can Coverer Signature: Status Update Update Pt eating approximately 50% of her meals and is currently averaging 7 hours of sleep per night. Pt behaviors have mostly maintained the same. She does appear to be less agitated then at time of admission. She, also, appears to be a bit more willing to take medications, but needs a lot of encouragement. As pt has an Intellectual Developmental Disability, staff have found that she seems to be more med compliant when put in a drink and play cheers until the medication is gone/drank. Pt will return to [facility] at time of discharge. MIGUEL COVINGTON Apr 16, 2021 12:24
--- NOTE | 2021-04-16 15:40 | NUR ---
Weekly Note: Pt eating approximately 50% of her meals and is currently averaging 7 hours of sleep per night. Pt behaviors have mostly maintained the same. She does appear to be less agitated then at time of admission. She, also, appears to be a bit more willing to take medications, but needs a lot of encouragement. As pt has an Intellectual Developmental Disability, staff have found that she seems to be more med compliant when put in a drink and play "cheers" until the medication is gone/drank. Pt will return to [facility] at time of discharge. FIORDALIZA, also, previously spoke with Monica at pt facility who requested at time of discharge, pt discharge orders have a recommendation for Seroquel taper as the facility is not able to give antipsychotics. This has been discussed with the doctor and pt nurse, as well, and this will be written in discharge orders. Further, the facility had requested recommendations at time of discharge for topical medications. This too will be written in discharge orders. Finally, FIORDALIZA attempted to contact pt sister/DPOA to discuss discharge for early next week. FIORDALIZA left and plans to call DPOA again tomorrow.
[2021-04-16 15:53] VITALS: BP 115/65
--- NOTE | 2021-04-16 15:56 | NUR ---
Nsg Note; Cate was tired and put down for an afternoon nap. She became agitated and, when checked, had been incont of bladder and bowel. Brief changed and pt calmed down. She has been med resistant today, with crushed meds in gina Ensure.
[2021-04-16] MEDS: PHENYTOIN SODIUM EXTENDED 100 MG CAPSULE PO SCH (17:10)
[2021-04-16] MEDS: MELATONIN 3 MG TABLET PO SCH (20:40)
[2021-04-16] MEDS: MIRTAZAPINE 7.5 MG TABLET. PO SCH (20:40)
[2021-04-16] MEDS: traZODone 50 MG TABLET. PO SCH (20:40)
--- NOTE | 2021-04-16 21:00 | NUR ---
Nursing note Pt up in chair moans unintelligible hits kicks and punches with cares. Meds given in small amount of chocolate drink, minimally compliant.
--- NOTE | 2021-04-16 21:58 | PDOC ---
Exam Note: Brooks Note: Please also refer to the separate dictated note~for this date of service dictated separately.~Patient seen individually. Discussed the patient with Nursing staff reviewed the chart.~Reviewed interim history and current functioning. Reviewed vital signs,~Labs/ Radiology~and current medications noted below. Continue current treatment with the changes noted in the dictated addendum note Assessment: Vital Signs/I&O: Vital Signs Date Time Temp Pulse Resp B/P (MAP) Pulse Ox O2 Delivery O2 Flow Rate FiO2 04/16/21 15:53 98.2 86 20 115/65 (82) 04/16/21 06:33 91 Room Air I & O 04/15/21 04/15/21 04/16/21 15:00 23:00 07:00 Intake Total 300 ml 447 ml Balance 300 ml 447 ml Current Medications: Meds: Current Medications Medications (Trade) Dose Ordered Sig/Kassidy Route PRN Reason Start Time Stop Time Status Last Admin Dose Admin Acetaminophen (Tylenol) 650 mg PRN Q6HRS PRN PO MILD PAIN / TEMP > 100.3'F 03/16/21 15:45 03/30/21 15:04 Multi-Ingredient Ointment (Analgesic [place]) 1 belinda PRN QID PRN TP MUSCLE PAIN 03/16/21 15:45 Al Hydroxide/Mg Hydroxide (Mylanta Plus Xs) 15 ml PRN AFTMEALHC PRN PO DYSPEPSIA 03/16/21 15:45 Magnesium Hydroxide (Milk Of Magnesia) 2,400 mg PRN QHS PRN PO 2ND CHOICE CONSTIPATION 03/16/21 15:45 Acetaminophen (Tylenol) 650 mg PRN Q6HRS PRN PO pain or fever 03/16/21 16:00 UNV Aspirin (Aspirin Chewable) 81 mg DAILY PO 03/17/21 09:00 04/16/21 08:23 Levothyroxine Sodium (Synthroid) 50 mcg DAILY06 PO 03/17/21 06:00 04/16/21 06:00 Al Hydroxide/Mg Hydroxide (Mylanta Plus Xs) 15 ml PRN AFTMEALHC PRN PO DYSPEPSIA 03/16/21 16:00 UNV Magnesium Hydroxide (Milk Of Magnesia) 2,400 mg PRN QHS PRN PO CONSTIPATION 03/16/21 16:00 UNV Metolazone (Zaroxolyn) 5 mg QMWF@0900 PO 03/18/21 09:00 04/15/21 08:10 Mirtazapine (Remeron) 7.5 mg QHS PO 03/16/21 21:00 04/16/21 20:40 Phenytoin Sodium (Dilantin) 300 mg QHS PO 03/16/21 21:00 04/12/21 11:07 DC 04/11/21 21:03 Potassium Chloride (Klor-Con) 20 meq BID PO 03/16/21 21:00 04/12/21 11:07 DC 04/12/21 09:11 Sennosides (Senna) 8.6 mg BID PO 03/16/21 21:00 04/16/21 20:42 Non-Formulary Medication (Methyl Salicylate/ Menthol (Analgesic [place])) 1 belinda PRN QID PRN TP MUSCLE PAIN 03/16/21 16:00 UNV Multivitamins/ Calcium (Thera-M Plus) 1 tab DAILY PO 03/17/21 09:00 04/16/21 08:25 Polyethylene Glycol (miraLAX) 17 gm DAILY PO 03/17/21 09:00 04/12/21 16:42 DC 04/10/21 08:18 Vitamin D (Vitamin D3) 50,000 unit WEEKLY PO 03/23/21 09:00 04/13/21 08:07 Cetirizine HCl (ZyrTEC) 10 mg DAILY PO 03/17/21 09:00 04/16/21 08:23 Sertraline HCl (Zoloft) 50 mg DAILY PO 03/17/21 09:00 03/18/21 18:34 DC 03/18/21 08:31 Denosumab (Prolia) 60 mg QMONTH SQ 04/15/21 09:00 UNV Phenytoin Sodium (Dilantin) 100 mg BID92 PO 03/17/21 09:00 Cancel Tramadol HCl (Ultram) 50 mg PRN BID PRN PO MOD-SEV PAIN 03/16/21 16:15 04/13/21 19:38 Trazodone HCl (Desyrel) 50 mg QHS PO 03/16/21 21:00 04/16/21 20:40 Ascorbic Acid (Vitamin C) 1,000 mg DAILY PO 03/17/21 09:00 04/16/21 08:24 Melatonin (Melatonin) 6 mg HS PO 03/16/21 21:00 04/16/21 20:40 Zinc Sulfate (Orazinc) 220 mg DAILY PO 03/17/21 09:00 04/16/21 08:23 Sertraline HCl (Zoloft) 75 mg DAILY PO 03/19/21 09:00 04/16/21 08:24 Olanzapine (ZyPREXA ZYDIS) 2.5 mg PRN Q2HR PRN PO PSYCHOSIS 03/19/21 20:15 04/07/21 15:55 Influenza Virus Vaccine Quadrival (Flulaval Quad [id number] Syringe) 0.5 ml ONCE ONCE VAX IM 03/25/21 09:00 03/25/21 09:01 DC 03/25/21 11:05 Gabapentin (Neurontin) 100 mg TID PO 03/24/21 21:00 03/26/21 11:42 DC 03/26/21 08:24 Gabapentin (Neurontin) 200 mg TID PO 03/26/21 14:00 03/29/21 16:00 DC 03/29/21 13:10 Valproic Acid (Depakene) 250 mg BID PO 03/29/21 21:00 04/02/21 10:15 DC 04/02/21 08:26 Valproic Acid (Depakene) 500 mg BID PO 04/02/21 21:00 04/16/21 20:41 Nystatin (Nystop) 1 belinda BID TP 04/03/21 21:00 04/16/21 20:42 Vitamin A/Vitamin D (Vitamin A & D Ointment) 1 belinda PRN Q1HR PRN TP SKIN PROTECTION 04/03/21 16:45 04/07/21 05:54 Quetiapine Fumarate (SEROquel) 12.5 mg 0900,1300,1700 PO 04/06/21 09:00 04/09/21 01:06 DC 04/08/21 17:03 Quetiapine Fumarate (SEROquel) 12.5 mg QID@0900,1200,1500,1700 PO 04/09/21 09:00 04/16/21 17:10 Phenytoin Sodium (Dilantin) 300 mg 1700 PO 04/12/21 17:00 04/16/21 17:10 Potassium Chloride (Klor-Con) 20 meq 0800,1700 PO 04/12/21 17:00 04/16/21 17:14 Polyethylene Glycol (miraLAX) 17 gm PRN DAILY PRN PO 1ST CHOICE CONSTIPATION 04/12/21 16:45 I have reviewed the current psychotropics carefully including drug interactions. Risk benefit ratio favors no change other than as noted in my dictated progress note. Diagnosis: Problems: (1) Impulse control disorder, unspecified (2) Anxiety disorder, unspecified (3) Major depressive disorder with psychotic features (4) Intellectual disability GAMALIEL MALLOY MD Apr 16, 2021 21:58
--- NOTE | 2021-04-17 00:07 | NUR ---
Nursing Note Pt combative with cares moans unintelligibly resistive to meds hits kicks an punches with cares. Meds given in a small amount of chocolate drink. Minimally compliant. Attempts to scratch during admin of meds.
[2021-04-17 05:57] VITALS: BP 131/76
[2021-04-17] MEDS: LEVOTHYROXINE 50 MCG TABLET PO SCH (06:00)
[2021-04-17 07:40] LABS: BILIRUBIN,URINE NEG (NEG); CLARITY,URINE HAZY; COLOR,URINE YELLOW; GLUCOSE,URINE NEG (NEG); NITRITE,URINE NEG (NEG); UROBILINOGEN,URINE 0.2 mg/dL (0.2 mg/dL)
[2021-04-17 07:44] LABS: AMORPHOUS SEDIMENT,UR PRESENT /HPF; BACTERIA,URINE FEW /HPF (0-FEW); RBC,URINE RARE /HPF (0-2); SQUAMOUS EPITHELIAL CELL,UR OCC /LPF
[2021-04-17] MEDS: ZINC SULFATE 220 MG CAPSULE. PO SCH (08:30)
[2021-04-17] MEDS: CETIRIZINE HCL 10 MG TABLET PO SCH (08:30)
[2021-04-17] MEDS: MULTIVITAMIN with MINERAL TABLET. PO SCH (08:30)
[2021-04-17] MEDS: POTASSIUM CHLORIDE 20 MEQ TABLET.ER. PO SCH ×2 (08:30→15:54)
[2021-04-17] MEDS: metOLazone 5 MG TABLET PO SCH (08:30)
[2021-04-17] MEDS: ASCORBIC ACID 500 MG TABLET PO SCH (08:30)
[2021-04-17] MEDS: QUEtiapine 25 MG TABLET. PO SCH ×4 (08:30→17:09)
[2021-04-17] MEDS: SENNOSIDES 8.6 MG TABLET PO SCH ×3 (08:30→19:56)
[2021-04-17] MEDS: NYSTATIN TOPICAL POWDER 15GM BOTTLE. TP SCH ×2 (08:31→19:47)
[2021-04-17] MEDS: VALPROATE ACID 250 MG/5 ML ORAL SOLUTION PO SCH ×2 (08:31→19:47)
[2021-04-17] MEDS: ASPIRIN CHEWABLE 81 MG TABLET. PO SCH (08:31)
[2021-04-17] MEDS: SERTRALINE 50 MG TABLET. PO SCH (08:31)
--- NOTE | 2021-04-17 11:17 | NUR ---
FIORDALIZA spoke with pt sister/DPOA, Fariba, to provide update. FIORDALIZA informed Fariba that pt will be tested for UTI. Also, FIORDALIZA explained that pt continues to do slightly better, but that many of her behaviors are a result of her intellectual developmental disability. Fariab agreed. We discussed how playing the "cheers" game helps somewhat with medication compliance. Fariba indicated that she used to do that with her too when they were younger. FIORDALIZA informed Fariba that at time of discharge the doctor would indicate in his discharge summary that pt's nursing facility could do a Seroquel taper if they felt they needed to or if they were unable to give Seroquel. Also, SW informed Fariba that the doctor would write in the discharge summary that the facility could try to get her medications in a compound so that they could be given topical. Fariba voiced understanding and was appreciative of information. Pt will be considered for discharge next week. FIORDALIZA will contact facility next week to discuss discharge.
[2021-04-17 15:34] VITALS: BP 143/72
[2021-04-17] MEDS: PHENYTOIN SODIUM EXTENDED 100 MG CAPSULE PO SCH (15:54)
--- NOTE | 2021-04-17 17:28 | NUR ---
Nsg Note; Cate was calm most of the morning. She does not verbalize very much. She takes her meds crushed in drinks.
[2021-04-17] MEDS: MIRTAZAPINE 7.5 MG TABLET. PO SCH (19:47)
[2021-04-17] MEDS: MELATONIN 3 MG TABLET PO SCH (19:47)
[2021-04-17] MEDS: traZODone 50 MG TABLET. PO SCH (19:47)
--- NOTE | 2021-04-17 22:16 | NUR ---
Patient is in her bed on assumption of care, awake in bed. She is mostly quiet, yelling out intermittently. Compliant with medications given crushed in cola. Irritable and resistive with cares. Patient appears to be sleeping comfortably at present time. Will continue to monitor.
--- NOTE | 2021-04-18 05:08 | PN ---
DATE: 04/16/2021 PSYCHIATRIC PROGRESS NOTE This late entry 04/16/2021 covers elements not covered in my initial note. I met with the patient on the evening of 04/16/2021 on rounds and staff at treatment team meeting with entire team in the morning. Per TRENT Mora, the patient has been resistive to medications. Continues to have mood lability, not very verbal. Appetite 50%, slept 7 hours previous night. We will repeat a UA to make sure she does not have a UTI, worsening agitation. Also discussed with TRENT Wilder in the evening. She remains resistive to medications. Earlier in the day, also discussed with Katty, social professionals about nursing homes concern that the patient will be on Seroquel at discharge. In fact, starting 90 days from discharge, thus attempt should be made to taper the Seroquel, but the final decision will be left to her treating provider at that time. REVIEW OF SYSTEMS: Ambulation impaired, in wheelchair. No CV, , pulmonary, eye system symptoms on review. MENTAL STATUS EXAM: Oriented to herself. Insight, judgment, recent and remote memory, attention, concentration, fund of knowledge poor consistent with her diagnosis. IMPRESSION: Major depressive disorder with psychotic features, bipolar 1 disorder, unspecified; impulse control disorder, intellectual disability, anxiety disorder, unspecified. PLAN: From a psychiatric standpoint, continue psychotropics from initial note. Depakene, Seroquel, Remeron, melatonin and she is on Zoloft and Dilantin along with trazodone scheduled 50 mg, Remeron 7.5 mg p.o. at bedtime and Zyprexa p.r.n. Adjust further as clinically indicated. KODY DR: Matt TID: [id number]
[2021-04-18] MEDS: LEVOTHYROXINE 50 MCG TABLET PO SCH (05:45)
[2021-04-18 06:25] VITALS: BP 105/59
[2021-04-18] MEDS: NYSTATIN TOPICAL POWDER 15GM BOTTLE. TP SCH ×2 (07:57→20:56)
[2021-04-18] MEDS: ZINC SULFATE 220 MG CAPSULE. PO SCH (07:58)
[2021-04-18] MEDS: SENNOSIDES 8.6 MG TABLET PO SCH ×2 (07:58→20:56)
[2021-04-18] MEDS: MULTIVITAMIN with MINERAL TABLET. PO SCH (07:58)
[2021-04-18] MEDS: POTASSIUM CHLORIDE 20 MEQ TABLET.ER. PO SCH ×2 (07:58→17:07)
[2021-04-18] MEDS: ASPIRIN CHEWABLE 81 MG TABLET. PO SCH (07:58)
[2021-04-18] MEDS: VALPROATE ACID 250 MG/5 ML ORAL SOLUTION PO SCH ×2 (07:58→20:56)
[2021-04-18] MEDS: QUEtiapine 25 MG TABLET. PO SCH ×4 (07:58→17:07)
[2021-04-18] MEDS: CETIRIZINE HCL 10 MG TABLET PO SCH (07:58)
[2021-04-18] MEDS: ASCORBIC ACID 500 MG TABLET PO SCH (07:58)
[2021-04-18] MEDS: SERTRALINE 50 MG TABLET. PO SCH (07:59)
--- NOTE | 2021-04-18 08:43 | PDOC ---
Exam Note: Brooks Note: Late entry for 04/17/2021. Please also refer to the separate dictated note~for this date of service dictated separately.~Patient seen individually. Discussed the patient with Nursing staff reviewed the chart.~Reviewed interim history and current functioning. Reviewed vital signs,~Labs/ Radiology~and current medic ations noted below. Continue current treatment with the changes noted in the dictated addendum note Assessment: Vital Signs/I&O: Vital Signs Date Time Temp Pulse Resp B/P (MAP) Pulse Ox O2 Delivery O2 Flow Rate FiO2 04/18/21 06:25 97.1 76 18 105/59 (74) 95 04/16/21 06:33 Room Air I & O 04/17/21 04/17/21 04/18/21 15:00 23:00 07:00 Intake Total 360 ml 600 ml Balance 360 ml 600 ml Current Medications: Meds: Current Medications Medications (Trade) Dose Ordered Sig/Kassidy Route PRN Reason Start Time Stop Time Status Last Admin Dose Admin Acetaminophen (Tylenol) 650 mg PRN Q6HRS PRN PO MILD PAIN / TEMP > 100.3'F 03/16/21 15:45 03/30/21 15:04 Multi-Ingredient Ointment (Analgesic [place]) 1 belinda PRN QID PRN TP MUSCLE PAIN 03/16/21 15:45 Al Hydroxide/Mg Hydroxide (Mylanta Plus Xs) 15 ml PRN AFTMEALHC PRN PO DYSPEPSIA 03/16/21 15:45 Magnesium Hydroxide (Milk Of Magnesia) 2,400 mg PRN QHS PRN PO 2ND CHOICE CONSTIPATION 03/16/21 15:45 Acetaminophen (Tylenol) 650 mg PRN Q6HRS PRN PO pain or fever 03/16/21 16:00 UNV Aspirin (Aspirin Chewable) 81 mg DAILY PO 03/17/21 09:00 04/18/21 07:58 Levothyroxine Sodium (Synthroid) 50 mcg DAILY06 PO 03/17/21 06:00 04/18/21 05:45 Al Hydroxide/Mg Hydroxide (Mylanta Plus Xs) 15 ml PRN AFTMEALHC PRN PO DYSPEPSIA 03/16/21 16:00 UNV Magnesium Hydroxide (Milk Of Magnesia) 2,400 mg PRN QHS PRN PO CONSTIPATION 03/16/21 16:00 UNV Metolazone (Zaroxolyn) 5 mg QMWF@0900 PO 03/18/21 09:00 04/17/21 08:30 Mirtazapine (Remeron) 7.5 mg QHS PO 03/16/21 21:00 04/17/21 19:47 Phenytoin Sodium (Dilantin) 300 mg QHS PO 03/16/21 21:00 04/12/21 11:07 DC 04/11/21 21:03 Potassium Chloride (Klor-Con) 20 meq BID PO 03/16/21 21:00 04/12/21 11:07 DC 04/12/21 09:11 Sennosides (Senna) 8.6 mg BID PO 03/16/21 21:00 04/18/21 07:58 Non-Formulary Medication (Methyl Salicylate/ Menthol (Analgesic [place])) 1 belinda PRN QID PRN TP MUSCLE PAIN 03/16/21 16:00 UNV Multivitamins/ Calcium (Thera-M Plus) 1 tab DAILY PO 03/17/21 09:00 04/18/21 07:58 Polyethylene Glycol (miraLAX) 17 gm DAILY PO 03/17/21 09:00 04/12/21 16:42 DC 04/10/21 08:18 Vitamin D (Vitamin D3) 50,000 unit WEEKLY PO 03/23/21 09:00 04/13/21 08:07 Cetirizine HCl (ZyrTEC) 10 mg DAILY PO 03/17/21 09:00 04/18/21 07:58 Sertraline HCl (Zoloft) 50 mg DAILY PO 03/17/21 09:00 03/18/21 18:34 DC 03/18/21 08:31 Denosumab (Prolia) 60 mg QMONTH SQ 04/15/21 09:00 UNV Phenytoin Sodium (Dilantin) 100 mg BID92 PO 03/17/21 09:00 Cancel Tramadol HCl (Ultram) 50 mg PRN BID PRN PO MOD-SEV PAIN 03/16/21 16:15 04/13/21 19:38 Trazodone HCl (Desyrel) 50 mg QHS PO 03/16/21 21:00 04/17/21 19:47 Ascorbic Acid (Vitamin C) 1,000 mg DAILY PO 03/17/21 09:00 04/18/21 07:58 Melatonin (Melatonin) 6 mg HS PO 03/16/21 21:00 04/17/21 19:47 Zinc Sulfate (Orazinc) 220 mg DAILY PO 03/17/21 09:00 04/18/21 07:58 Sertraline HCl (Zoloft) 75 mg DAILY PO 03/19/21 09:00 04/18/21 07:59 Olanzapine (ZyPREXA ZYDIS) 2.5 mg PRN Q2HR PRN PO PSYCHOSIS 03/19/21 20:15 04/07/21 15:55 Influenza Virus Vaccine Quadrival (Flulaval Quad [id number] Syringe) 0.5 ml ONCE ONCE VAX IM 03/25/21 09:00 03/25/21 09:01 DC 03/25/21 11:05 Gabapentin (Neurontin) 100 mg TID PO 03/24/21 21:00 03/26/21 11:42 DC 03/26/21 08:24 Gabapentin (Neurontin) 200 mg TID PO 03/26/21 14:00 03/29/21 16:00 DC 03/29/21 13:10 Valproic Acid (Depakene) 250 mg BID PO 03/29/21 21:00 04/02/21 10:15 DC 04/02/21 08:26 Valproic Acid (Depakene) 500 mg BID PO 04/02/21 21:00 04/18/21 07:58 Nystatin (Nystop) 1 belinda BID TP 04/03/21 21:00 04/18/21 07:57 Vitamin A/Vitamin D (Vitamin A & D Ointment) 1 belinda PRN Q1HR PRN TP SKIN PROTECTION 04/03/21 16:45 04/07/21 05:54 Quetiapine Fumarate (SEROquel) 12.5 mg 0900,1300,1700 PO 04/06/21 09:00 04/09/21 01:06 DC 04/08/21 17:03 Quetiapine Fumarate (SEROquel) 12.5 mg QID@0900,1200,1500,1700 PO 04/09/21 09:00 04/18/21 07:58 Phenytoin Sodium (Dilantin) 300 mg 1700 PO 04/12/21 17:00 04/17/21 15:54 Potassium Chloride (Klor-Con) 20 meq 0800,1700 PO 04/12/21 17:00 04/18/21 07:58 Polyethylene Glycol (miraLAX) 17 gm PRN DAILY PRN PO 1ST CHOICE CONSTIPATION 04/12/21 16:45 I have reviewed the current psychotropics carefully including drug interactions. Risk benefit ratio favors no change other than as noted in my dictated progress note. Diagnosis: Problems: (1) Impulse control disorder, unspecified (2) Anxiety disorder, unspecified (3) Major depressive disorder with psychotic features (4) Intellectual disability GAMALIEL MALLOY MD Apr 18, 2021 08:43
--- NOTE | 2021-04-18 12:28 | NUR ---
Nursing note: Pt in bed at time of AM med pass and assessment. She is compliant with meds crushed in chocolate milk and cooperative with assessment. She does not appear to be in any pain. She is currently in the dining room for lunch. Will continue to monitor.
[2021-04-18 15:58] VITALS: BP 114/74
[2021-04-18] MEDS: PHENYTOIN SODIUM EXTENDED 100 MG CAPSULE PO SCH (17:07)
[2021-04-18] MEDS: MELATONIN 3 MG TABLET PO SCH (20:56)
[2021-04-18] MEDS: traZODone 50 MG TABLET. PO SCH (20:56)
[2021-04-18] MEDS: MIRTAZAPINE 7.5 MG TABLET. PO SCH (20:56)
--- NOTE | 2021-04-18 21:26 | PDOC ---
Exam Note: Brooks Note: Please also refer to the separate dictated note~for this date of service dictated separately.~Patient seen individually. Discussed the patient with Nursing staff reviewed the chart.~Reviewed interim history and current functioning. Reviewed vital signs,~Labs/ Radiology~and current medications noted below. Continue current treatment with the changes noted in the dictated addendum note Assessment: Vital Signs/I&O: Vital Signs Date Time Temp Pulse Resp B/P (MAP) Pulse Ox O2 Delivery O2 Flow Rate FiO2 04/18/21 15:58 98.2 67 20 114/74 (87) 96 Room Air I & O 04/17/21 04/17/21 04/18/21 15:00 23:00 07:00 Intake Total 360 ml 600 ml Balance 360 ml 600 ml Current Medications: Meds: Current Medications Medications (Trade) Dose Ordered Sig/Kassidy Route PRN Reason Start Time Stop Time Status Last Admin Dose Admin Acetaminophen (Tylenol) 650 mg PRN Q6HRS PRN PO MILD PAIN / TEMP > 100.3'F 03/16/21 15:45 03/30/21 15:04 Multi-Ingredient Ointment (Analgesic [place]) 1 belinda PRN QID PRN TP MUSCLE PAIN 03/16/21 15:45 Al Hydroxide/Mg Hydroxide (Mylanta Plus Xs) 15 ml PRN AFTMEALHC PRN PO DYSPEPSIA 03/16/21 15:45 Magnesium Hydroxide (Milk Of Magnesia) 2,400 mg PRN QHS PRN PO 2ND CHOICE CONSTIPATION 03/16/21 15:45 Acetaminophen (Tylenol) 650 mg PRN Q6HRS PRN PO pain or fever 03/16/21 16:00 UNV Aspirin (Aspirin Chewable) 81 mg DAILY PO 03/17/21 09:00 04/18/21 07:58 Levothyroxine Sodium (Synthroid) 50 mcg DAILY06 PO 03/17/21 06:00 04/18/21 05:45 Al Hydroxide/Mg Hydroxide (Mylanta Plus Xs) 15 ml PRN AFTMEALHC PRN PO DYSPEPSIA 03/16/21 16:00 UNV Magnesium Hydroxide (Milk Of Magnesia) 2,400 mg PRN QHS PRN PO CONSTIPATION 03/16/21 16:00 UNV Metolazone (Zaroxolyn) 5 mg QMWF@0900 PO 03/18/21 09:00 04/17/21 08:30 Mirtazapine (Remeron) 7.5 mg QHS PO 03/16/21 21:00 04/18/21 20:56 Phenytoin Sodium (Dilantin) 300 mg QHS PO 03/16/21 21:00 04/12/21 11:07 DC 04/11/21 21:03 Potassium Chloride (Klor-Con) 20 meq BID PO 03/16/21 21:00 04/12/21 11:07 DC 04/12/21 09:11 Sennosides (Senna) 8.6 mg BID PO 03/16/21 21:00 04/18/21 07:58 Non-Formulary Medication (Methyl Salicylate/ Menthol (Analgesic [place])) 1 belinda PRN QID PRN TP MUSCLE PAIN 03/16/21 16:00 UNV Multivitamins/ Calcium (Thera-M Plus) 1 tab DAILY PO 03/17/21 09:00 04/18/21 07:58 Polyethylene Glycol (miraLAX) 17 gm DAILY PO 03/17/21 09:00 04/12/21 16:42 DC 04/10/21 08:18 Vitamin D (Vitamin D3) 50,000 unit WEEKLY PO 03/23/21 09:00 04/13/21 08:07 Cetirizine HCl (ZyrTEC) 10 mg DAILY PO 03/17/21 09:00 04/18/21 07:58 Sertraline HCl (Zoloft) 50 mg DAILY PO 03/17/21 09:00 03/18/21 18:34 DC 03/18/21 08:31 Denosumab (Prolia) 60 mg QMONTH SQ 04/15/21 09:00 UNV Phenytoin Sodium (Dilantin) 100 mg BID92 PO 03/17/21 09:00 Cancel Tramadol HCl (Ultram) 50 mg PRN BID PRN PO MOD-SEV PAIN 03/16/21 16:15 04/13/21 19:38 Trazodone HCl (Desyrel) 50 mg QHS PO 03/16/21 21:00 04/18/21 20:56 Ascorbic Acid (Vitamin C) 1,000 mg DAILY PO 03/17/21 09:00 04/18/21 07:58 Melatonin (Melatonin) 6 mg HS PO 03/16/21 21:00 04/18/21 20:56 Zinc Sulfate (Orazinc) 220 mg DAILY PO 03/17/21 09:00 04/18/21 07:58 Sertraline HCl (Zoloft) 75 mg DAILY PO 03/19/21 09:00 04/18/21 18:15 DC 04/18/21 07:59 Olanzapine (ZyPREXA ZYDIS) 2.5 mg PRN Q2HR PRN PO PSYCHOSIS 03/19/21 20:15 04/07/21 15:55 Influenza Virus Vaccine Quadrival (Flulaval Quad [id number] Syringe) 0.5 ml ONCE ONCE VAX IM 03/25/21 09:00 03/25/21 09:01 DC 03/25/21 11:05 Gabapentin (Neurontin) 100 mg TID PO 03/24/21 21:00 03/26/21 11:42 DC 03/26/21 08:24 Gabapentin (Neurontin) 200 mg TID PO 03/26/21 14:00 03/29/21 16:00 DC 03/29/21 13:10 Valproic Acid (Depakene) 250 mg BID PO 03/29/21 21:00 04/02/21 10:15 DC 04/02/21 08:26 Valproic Acid (Depakene) 500 mg BID PO 04/02/21 21:00 04/18/21 20:56 Nystatin (Nystop) 1 belinda BID TP 04/03/21 21:00 04/18/21 20:56 Vitamin A/Vitamin D (Vitamin A & D Ointment) 1 belinda PRN Q1HR PRN TP SKIN PROTECTION 04/03/21 16:45 04/07/21 05:54 Quetiapine Fumarate (SEROquel) 12.5 mg 0900,1300,1700 PO 04/06/21 09:00 04/09/21 01:06 DC 04/08/21 17:03 Quetiapine Fumarate (SEROquel) 12.5 mg QID@0900,1200,1500,1700 PO 04/09/21 09:00 04/18/21 17:07 Phenytoin Sodium (Dilantin) 300 mg 1700 PO 04/12/21 17:00 04/18/21 17:07 Potassium Chloride (Klor-Con) 20 meq 0800,1700 PO 04/12/21 17:00 04/18/21 17:07 Polyethylene Glycol (miraLAX) 17 gm PRN DAILY PRN PO 1ST CHOICE CONSTIPATION 04/12/21 16:45 Sertraline HCl (Zoloft) 100 mg DAILY PO 04/19/21 09:00 I have reviewed the current psychotropics carefully including drug interactions. Risk benefit ratio favors no change other than as noted in my dictated progress note. Diagnosis: Problems: (1) Major depressive disorder with psychotic features (2) Intellectual disability (3) Anxiety disorder, unspecified (4) Impulse control disorder, unspecified GAMALIEL MALLOY MD Apr 18, 2021 21:26
--- NOTE | 2021-04-18 21:30 | NUR ---
Patient is propelling around the unit in her wheelchair on assumption of care. Patient resistant to taking medications crushed in cola, was necessary to give sublingually with staff assist of 2. Irritable and resistive with cares. Patient appears to be sleeping comfortably at present time. Will continue to monitor.
--- NOTE | 2021-04-18 21:41 | PN ---
DATE: 04/17/2021 PSYCHIATRIC PROGRESS NOTE This late entry, 04/17/2021, covers the elements not covered in my initial note. SUBJECTIVE: I met with the patient in the evening of 04/17/2021 in her room. Per TRENT Mora, the patient is doing about the same. She slept 6-3/4 hours previous night, gets more anxious with marked mood lability in the evening, does better in the morning. REVIEW OF SYSTEMS: Ambulation impaired, in wheelchair. No CV, , pulmonary, eye system symptoms on review. Reliability poor. MENTAL STATUS EXAMINATION: Oriented to herself. Insight, judgment, recent and remote memory, attention, concentration, fund of knowledge poor consistent with her diagnosis. IMPRESSION: Major depressive disorder with psychotic features, impulse control disorder, intellectual disability, anxiety disorder, unspecified seizure disorder. Rest unchanged. PLAN: Continue psychotropics from initial note. Review drug interactions. Adjust further as clinically indicated. Depakote is therapeutic with a level of 57. SLY DR: Matt TID: [id number]
[2021-04-19] MEDS: LEVOTHYROXINE 50 MCG TABLET PO SCH (05:08)
[2021-04-19 06:13] VITALS: BP 117/66
[2021-04-19] MEDS: ASPIRIN CHEWABLE 81 MG TABLET. PO SCH (08:15)
[2021-04-19] MEDS: MULTIVITAMIN with MINERAL TABLET. PO SCH (08:15)
[2021-04-19] MEDS: ZINC SULFATE 220 MG CAPSULE. PO SCH (08:15)
[2021-04-19] MEDS: QUEtiapine 25 MG TABLET. PO SCH ×4 (08:16→16:52)
[2021-04-19] MEDS: SERTRALINE 100 MG TABLET. PO SCH (08:16)
[2021-04-19] MEDS: POTASSIUM CHLORIDE 20 MEQ TABLET.ER. PO SCH ×2 (08:16→16:52)
[2021-04-19] MEDS: SENNOSIDES 8.6 MG TABLET PO SCH ×2 (08:16→20:27)
[2021-04-19] MEDS: CETIRIZINE HCL 10 MG TABLET PO SCH (08:16)
[2021-04-19] MEDS: ASCORBIC ACID 500 MG TABLET PO SCH (08:16)
[2021-04-19 08:31] LABS: BASO % 1 % (0-3); EOS # 0.1 x10^3/uL (0.0-0.7); EOS % 3 % (0-3); HEMATOCRIT 34.8 % (36.0-47.0); HEMOGLOBIN 11.9 g/dL (12.0-15.5); LYMPH # 1.3 x10^3/uL (1.0-4.8); LYMPH % 34 % (24-48); MEAN CORPUSCULAR HEMOGLOBIN 33 pg (25-35); MEAN CORPUSCULAR HGB CONC 34 g/dL (31-37); MEAN CORPUSCULAR VOLUME 98 fL (79-100); MONO # 0.4 x10^3/uL (0.0-1.1); MONO % 9 % (0-9); NEUT % 52 % (31-73); PLATELET COUNT 263 x10^3/uL (140-400); RED BLOOD COUNT 3.57 x10^6/uL (3.50-5.40); RED CELL DISTRIBUTION WIDTH 14.2 % (11.5-14.5); WHITE BLOOD COUNT 3.8 x10^3/uL (4.0-11.0)
[2021-04-19 08:41] LABS: ALBUMIN/GLOBULIN RATIO 0.8 (1.0-1.7); CREATININE 0.4 mg/dL (0.6-1.0); GFR 157.8; POTASSIUM 3.7 mmol/L (3.5-5.1); TOTAL BILIRUBIN 0.2 mg/dL (0.2-1.0)
[2021-04-19] MEDS: VALPROATE ACID 250 MG/5 ML ORAL SOLUTION PO SCH ×2 (09:00→21:15)
[2021-04-19] MEDS: NYSTATIN TOPICAL POWDER 15GM BOTTLE. TP SCH ×2 (09:00→21:16)
--- NOTE | 2021-04-19 11:31 | PN ---
DATE: 04/18/2021 PSYCHIATRIC PROGRESS NOTE This late entry 04/18 covers elements not covered in my initial note. I met with the patient on the evening of 04/18 in her room. SUBJECTIVE: Per TRENT Amor, the patient slept 7-1/4 hours previous night. She did better in the morning, spent much time in bed, took her meds in chocolate, milk and Coke, but refused meds in the evening. Remains anxious, somewhat dysphoric in her mood. REVIEW OF SYSTEMS: Ambulation impaired, in wheelchair. No CV, , pulmonary, eye system symptoms on review. Reliability poor. MENTAL STATUS EXAMINATION: Oriented to herself. Insight, judgment, recent and remote memory, attention, concentration, fund of knowledge poor consistent with her diagnosis. IMPRESSION: Major depressive disorder with psychotic features, intellectual disability, impulse control disorder, anxiety disorder, unspecified. PLAN: Continue current psychotropics mentioned in my initial note. Increase Zoloft from 75 mg a day to 100 mg a day. Rest unchanged for now. RYLIE DR: Matt TID: [id number]
--- NOTE | 2021-04-19 13:48 | NUR ---
Nursing note: Patient in dinning room for morning medication and assessment. Medications taken crushed in pudding or syringed. She continues to need encouragement to take medications this shift. She has limited verbal interaction r/t intellectual disability, appears not to have pain per no facial grimacing noted at this time. Patient has said hi to peers & staff as she passes them in the mathews. She propels self in w/c, requires a Mary Jo or 2 person transfer. She continues to periodically yell or grunt out as well as being resistive to cares. She is currently in the dinning room while watching football. Will continue to monitor.
[2021-04-19 15:36] VITALS: BP 114/68
[2021-04-19] MEDS: PHENYTOIN SODIUM EXTENDED 100 MG CAPSULE PO SCH (16:52)
[2021-04-19] MEDS: traZODone 50 MG TABLET. PO SCH (21:15)
[2021-04-19] MEDS: MIRTAZAPINE 7.5 MG TABLET. PO SCH (21:16)
[2021-04-19] MEDS: MELATONIN 3 MG TABLET PO SCH (21:16)
--- NOTE | 2021-04-19 21:31 | PDOC ---
Exam Note: Brooks Note: Please also refer to the separate dictated note~for this date of service dictated separately.~Patient seen individually. Discussed the patient with Nursing staff reviewed the chart.~Reviewed interim history and current functioning. Reviewed vital signs,~Labs/ Radiology~and current medications noted below. Continue current treatment with the changes noted in the dictated addendum note Assessment: Vital Signs/I&O: Vital Signs Date Time Temp Pulse Resp B/P (MAP) Pulse Ox O2 Delivery O2 Flow Rate FiO2 04/19/21 15:36 97.1 98 20 114/68 (83) 96 Room Air I & O 04/18/21 04/18/21 04/19/21 15:00 23:00 07:00 Intake Total 120 ml 360 ml Balance 120 ml 360 ml Labs: Laboratory Tests Test 04/19/21 08:00 White Blood Count 3.8 x10^3/uL (4.0-11.0) L Red Blood Count 3.57 x10^6/uL (3.50-5.40) Hemoglobin 11.9 g/dL (12.0-15.5) L Hematocrit 34.8 % (36.0-47.0) L Mean Corpuscular Volume 98 fL (79-100) Mean Corpuscular Hemoglobin 33 pg (25-35) Mean Corpuscular Hemoglobin Concent 34 g/dL (31-37) Red Cell Distribution Width 14.2 % (11.5-14.5) Platelet Count 263 x10^3/uL (140-400) Neutrophils (%) (Auto) 52 % (31-73) Lymphocytes (%) (Auto) 34 % (24-48) Monocytes (%) (Auto) 9 % (0-9) Eosinophils (%) (Auto) 3 % (0-3) Basophils (%) (Auto) 1 % (0-3) Neutrophils # (Auto) 2.0 x10^3uL (1.8-7.7) Lymphocytes # (Auto) 1.3 x10^3/uL (1.0-4.8) Monocytes # (Auto) 0.4 x10^3/uL (0.0-1.1) Eosinophils # (Auto) 0.1 x10^3/uL (0.0-0.7) Basophils # (Auto) 0.0 x10^3/uL (0.0-0.2) Sodium Level 140 mmol/L (136-145) Potassium Level 3.7 mmol/L (3.5-5.1) Chloride Level 101 mmol/L (98-107) Carbon Dioxide Level 32 mmol/L (21-32) Anion Gap 7 (6-14) Blood Urea Nitrogen 13 mg/dL (7-20) Creatinine 0.4 mg/dL (0.6-1.0) L Estimated GFR (Cockcroft-Gault) 157.8 BUN/Creatinine Ratio 33 (6-20) H Glucose Level 95 mg/dL (70-99) Calcium Level 9.0 mg/dL (8.5-10.1) Total Bilirubin 0.2 mg/dL (0.2-1.0) Aspartate Amino Transferase (AST) 32 U/L (15-37) Alanine Aminotransferase (ALT) 37 U/L (14-59) Alkaline Phosphatase 83 U/L (46-116) Total Protein 7.0 g/dL (6.4-8.2) Albumin 3.0 g/dL (3.4-5.0) L Albumin/Globulin Ratio 0.8 (1.0-1.7) L Current Medications: Meds: Laboratory Tests Test 04/19/21 08:00 White Blood Count 3.8 x10^3/uL Red Blood Count 3.57 x10^6/uL Hemoglobin 11.9 g/dL Hematocrit 34.8 % Mean Corpuscular Volume 98 fL Mean Corpuscular Hemoglobin 33 pg Mean Corpuscular Hemoglobin Concent 34 g/dL Red Cell Distribution Width 14.2 % Platelet Count 263 x10^3/uL Neutrophils (%) (Auto) 52 % Lymphocytes (%) (Auto) 34 % Monocytes (%) (Auto) 9 % Eosinophils (%) (Auto) 3 % Basophils (%) (Auto) 1 % Neutrophils # (Auto) 2.0 x10^3uL Lymphocytes # (Auto) 1.3 x10^3/uL Monocytes # (Auto) 0.4 x10^3/uL Eosinophils # (Auto) 0.1 x10^3/uL Basophils # (Auto) 0.0 x10^3/uL Sodium Level 140 mmol/L Potassium Level 3.7 mmol/L Chloride Level 101 mmol/L Carbon Dioxide Level 32 mmol/L Anion Gap 7 Blood Urea Nitrogen 13 mg/dL Creatinine 0.4 mg/dL Estimated GFR (Cockcroft-Gault) 157.8 BUN/Creatinine Ratio 33 Glucose Level 95 mg/dL Calcium Level 9.0 mg/dL Total Bilirubin 0.2 mg/dL Aspartate Amino Transf (AST/SGOT) 32 U/L Alanine Aminotransferase (ALT/SGPT) 37 U/L Alkaline Phosphatase 83 U/L Total Protein 7.0 g/dL Albumin 3.0 g/dL Albumin/Globulin Ratio 0.8 Current Medications Medications (Trade) Dose Ordered Sig/Kassidy Route PRN Reason Start Time Stop Time Status Last Admin Dose Admin Acetaminophen (Tylenol) 650 mg PRN Q6HRS PRN PO MILD PAIN / TEMP > 100.3'F 03/16/21 15:45 03/30/21 15:04 Multi-Ingredient Ointment (Analgesic [place]) 1 belinda PRN QID PRN TP MUSCLE PAIN 03/16/21 15:45 Al Hydroxide/Mg Hydroxide (Mylanta Plus Xs) 15 ml PRN AFTMEALHC PRN PO DYSPEPSIA 03/16/21 15:45 Magnesium Hydroxide (Milk Of Magnesia) 2,400 mg PRN QHS PRN PO 2ND CHOICE CONSTIPATION 03/16/21 15:45 Acetaminophen (Tylenol) 650 mg PRN Q6HRS PRN PO pain or fever 03/16/21 16:00 UNV Aspirin (Aspirin Chewable) 81 mg DAILY PO 03/17/21 09:00 04/19/21 08:15 Levothyroxine Sodium (Synthroid) 50 mcg DAILY06 PO 03/17/21 06:00 04/19/21 05:08 Al Hydroxide/Mg Hydroxide (Mylanta Plus Xs) 15 ml PRN AFTMEALHC PRN PO DYSPEPSIA 03/16/21 16:00 UNV Magnesium Hydroxide (Milk Of Magnesia) 2,400 mg PRN QHS PRN PO CONSTIPATION 03/16/21 16:00 UNV Metolazone (Zaroxolyn) 5 mg QMWF@0900 PO 03/18/21 09:00 04/17/21 08:30 Mirtazapine (Remeron) 7.5 mg QHS PO 03/16/21 21:00 04/19/21 21:16 Phenytoin Sodium (Dilantin) 300 mg QHS PO 03/16/21 21:00 04/12/21 11:07 DC 04/11/21 21:03 Potassium Chloride (Klor-Con) 20 meq BID PO 03/16/21 21:00 04/12/21 11:07 DC 04/12/21 09:11 Sennosides (Senna) 8.6 mg BID PO 03/16/21 21:00 04/18/21 07:58 Non-Formulary Medication (Methyl Salicylate/ Menthol (Analgesic [place])) 1 belinda PRN QID PRN TP MUSCLE PAIN 03/16/21 16:00 UNV Multivitamins/ Calcium (Thera-M Plus) 1 tab DAILY PO 03/17/21 09:00 04/19/21 08:15 Polyethylene Glycol (miraLAX) 17 gm DAILY PO 03/17/21 09:00 04/12/21 16:42 DC 04/10/21 08:18 Vitamin D (Vitamin D3) 50,000 unit WEEKLY PO 03/23/21 09:00 04/13/21 08:07 Cetirizine HCl (ZyrTEC) 10 mg DAILY PO 03/17/21 09:00 04/19/21 08:16 Sertraline HCl (Zoloft) 50 mg DAILY PO 03/17/21 09:00 03/18/21 18:34 DC 03/18/21 08:31 Denosumab (Prolia) 60 mg QMONTH SQ 04/15/21 09:00 UNV Phenytoin Sodium (Dilantin) 100 mg BID92 PO 03/17/21 09:00 Cancel Tramadol HCl (Ultram) 50 mg PRN BID PRN PO MOD-SEV PAIN 03/16/21 16:15 04/13/21 19:38 Trazodone HCl (Desyrel) 50 mg QHS PO 03/16/21 21:00 04/19/21 21:15 Ascorbic Acid (Vitamin C) 1,000 mg DAILY PO 03/17/21 09:00 04/19/21 08:16 Melatonin (Melatonin) 6 mg HS PO 03/16/21 21:00 04/19/21 21:16 Zinc Sulfate (Orazinc) 220 mg DAILY PO 03/17/21 09:00 04/19/21 08:15 Sertraline HCl (Zoloft) 75 mg DAILY PO 03/19/21 09:00 04/18/21 18:15 DC 04/18/21 07:59 Olanzapine (ZyPREXA ZYDIS) 2.5 mg PRN Q2HR PRN PO PSYCHOSIS 03/19/21 20:15 04/07/21 15:55 Influenza Virus Vaccine Quadrival (Flulaval Quad [id number] Syringe) 0.5 ml ONCE ONCE VAX IM 03/25/21 09:00 03/25/21 09:01 DC 03/25/21 11:05 Gabapentin (Neurontin) 100 mg TID PO 03/24/21 21:00 03/26/21 11:42 DC 03/26/21 08:24 Gabapentin (Neurontin) 200 mg TID PO 03/26/21 14:00 03/29/21 16:00 DC 03/29/21 13:10 Valproic Acid (Depakene) 250 mg BID PO 03/29/21 21:00 04/02/21 10:15 DC 04/02/21 08:26 Valproic Acid (Depakene) 500 mg BID PO 04/02/21 21:00 04/19/21 21:15 Nystatin (Nystop) 1 belinda BID TP 04/03/21 21:00 04/19/21 21:16 Vitamin A/Vitamin D (Vitamin A & D Ointment) 1 belinda PRN Q1HR PRN TP SKIN PROTECTION 04/03/21 16:45 04/07/21 05:54 Quetiapine Fumarate (SEROquel) 12.5 mg 0900,1300,1700 PO 04/06/21 09:00 04/09/21 01:06 DC 04/08/21 17:03 Quetiapine Fumarate (SEROquel) 12.5 mg QID@0900,1200,1500,1700 PO 04/09/21 09:00 04/19/21 16:52 Phenytoin Sodium (Dilantin) 300 mg 1700 PO 04/12/21 17:00 04/19/21 16:52 Potassium Chloride (Klor-Con) 20 meq 0800,1700 PO 04/12/21 17:00 04/19/21 16:52 Polyethylene Glycol (miraLAX) 17 gm PRN DAILY PRN PO 1ST CHOICE CONSTIPATION 04/12/21 16:45 Sertraline HCl (Zoloft) 100 mg DAILY PO 04/19/21 09:00 04/19/21 08:16 Current Medications Medications (Trade) Dose Ordered Sig/Kassidy Route PRN Reason Start Time Stop Time Status Last Admin Dose Admin Sertraline HCl (Zoloft) 100 mg DAILY PO 04/19/21 09:00 04/19/21 08:16 I have reviewed the current psychotropics carefully including drug interactions. Risk benefit ratio favors no change other than as noted in my dictated progress note. Diagnosis: Problems: (1) Major depressive disorder with psychotic features (2) Intellectual disability (3) Anxiety disorder, unspecified (4) Impulse control disorder, unspecified GAMALIEL MALLOY MD Apr 19, 2021 21:31
--- NOTE | 2021-04-19 22:45 | NUR ---
Patient is in her bed on assumption of care, awake in bed. She is mostly quiet, yelling out intermittently. Resistive to medications, had to be given SL with staff assist of 3. Irritable and resistive with cares. Patient appears to be sleeping comfortably at present time. Will continue to monitor.
[2021-04-20] MEDS: LEVOTHYROXINE 50 MCG TABLET PO SCH (05:08)
[2021-04-20 05:57] VITALS: BP 116/70
[2021-04-20] MEDS: SERTRALINE 100 MG TABLET. PO SCH (08:25)
[2021-04-20] MEDS: POTASSIUM CHLORIDE 20 MEQ TABLET.ER. PO SCH ×2 (08:25→17:35)
[2021-04-20] MEDS: ZINC SULFATE 220 MG CAPSULE. PO SCH (08:25)
[2021-04-20] MEDS: MULTIVITAMIN with MINERAL TABLET. PO SCH (08:25)
[2021-04-20] MEDS: CETIRIZINE HCL 10 MG TABLET PO SCH (08:25)
[2021-04-20] MEDS: ASPIRIN CHEWABLE 81 MG TABLET. PO SCH (08:25)
[2021-04-20] MEDS: CHOLECALCIFEROL (VITAMIN D3) 50,000 UNIT CAPSULE PO SCH (08:25)
[2021-04-20] MEDS: metOLazone 5 MG TABLET PO SCH (08:25)
[2021-04-20] MEDS: ASCORBIC ACID 500 MG TABLET PO SCH (08:25)
[2021-04-20] MEDS: VALPROATE ACID 250 MG/5 ML ORAL SOLUTION PO SCH ×2 (08:25→20:56)
[2021-04-20] MEDS: SENNOSIDES 8.6 MG TABLET PO SCH (08:26)
[2021-04-20] MEDS: NYSTATIN TOPICAL POWDER 15GM BOTTLE. TP SCH ×2 (08:26→20:57)
[2021-04-20] MEDS: QUEtiapine 25 MG TABLET. PO SCH ×4 (08:26→17:35)
[2021-04-20] MEDS ORDERED: DOCUSATE 100 MG/10 ML SOLUTION. PO ONE (12:45)
[2021-04-20] MEDS ORDERED: BENZOCAINE 20% ORAL GEL 11.9GM TUBE. TP PRN (12:45)
--- NOTE | 2021-04-20 13:53 | NUR ---
Nursing note: Patient in dinning room for morning medication and assessment. Medications taken crushed in pudding or syringed. She continues to need encouragement to take medications this shift. She has limited verbal interaction r/t intellectual disability. Appears to have lower left tooth pain, PRN medication ordered per . Patient has said hi to peers & staff as she passes them in the mathews. She propels self in w/c, requires a Mary Jo or 2 person transfer. She continues to periodically yell or grunt out as well as being resistive to cares. She is currently in the mathews sitting in w/c. Will continue to monitor.
[2021-04-20 15:44] VITALS: BP 104/65
[2021-04-20] MEDS: PHENYTOIN SODIUM EXTENDED 100 MG CAPSULE PO SCH (17:35)
[2021-04-20] MEDS: MELATONIN 3 MG TABLET PO SCH (20:56)
[2021-04-20] MEDS: MIRTAZAPINE 7.5 MG TABLET. PO SCH (20:56)
[2021-04-20] MEDS: traZODone 50 MG TABLET. PO SCH (20:56)
--- NOTE | 2021-04-20 21:29 | PDOC ---
Exam Note: Brooks Note: Please also refer to the separate dictated note~for this date of service dictated separately.~Patient seen individually. Discussed the patient with Nursing staff reviewed the chart.~Reviewed interim history and current functioning. Reviewed vital signs,~Labs/ Radiology~and current medications noted below. Continue current treatment with the changes noted in the dictated addendum note Assessment: Vital Signs/I&O: Vital Signs Date Time Temp Pulse Resp B/P (MAP) Pulse Ox O2 Delivery O2 Flow Rate FiO2 04/20/21 15:44 97.5 70 20 104/65 (78) 95 04/19/21 15:36 Room Air I & O 04/19/21 04/19/21 04/20/21 15:00 23:00 07:00 Intake Total 240 ml 360 ml Balance 240 ml 360 ml Current Medications: Meds: Current Medications Medications (Trade) Dose Ordered Sig/Kassidy Route PRN Reason Start Time Stop Time Status Last Admin Dose Admin Acetaminophen (Tylenol) 650 mg PRN Q6HRS PRN PO MILD PAIN / TEMP > 100.3'F 03/16/21 15:45 03/30/21 15:04 Multi-Ingredient Ointment (Analgesic [place]) 1 belinda PRN QID PRN TP MUSCLE PAIN 03/16/21 15:45 Al Hydroxide/Mg Hydroxide (Mylanta Plus Xs) 15 ml PRN AFTMEALHC PRN PO DYSPEPSIA 03/16/21 15:45 Magnesium Hydroxide (Milk Of Magnesia) 2,400 mg PRN QHS PRN PO 2ND CHOICE CONSTIPATION 03/16/21 15:45 Acetaminophen (Tylenol) 650 mg PRN Q6HRS PRN PO pain or fever 03/16/21 16:00 UNV Aspirin (Aspirin Chewable) 81 mg DAILY PO 03/17/21 09:00 04/20/21 08:25 Levothyroxine Sodium (Synthroid) 50 mcg DAILY06 PO 03/17/21 06:00 04/20/21 05:08 Al Hydroxide/Mg Hydroxide (Mylanta Plus Xs) 15 ml PRN AFTMEALHC PRN PO DYSPEPSIA 03/16/21 16:00 UNV Magnesium Hydroxide (Milk Of Magnesia) 2,400 mg PRN QHS PRN PO CONSTIPATION 03/16/21 16:00 UNV Metolazone (Zaroxolyn) 5 mg QMWF@0900 PO 03/18/21 09:00 04/20/21 08:25 Mirtazapine (Remeron) 7.5 mg QHS PO 03/16/21 21:00 04/20/21 20:56 Phenytoin Sodium (Dilantin) 300 mg QHS PO 03/16/21 21:00 04/12/21 11:07 DC 04/11/21 21:03 Potassium Chloride (Klor-Con) 20 meq BID PO 03/16/21 21:00 04/12/21 11:07 DC 04/12/21 09:11 Sennosides (Senna) 8.6 mg BID PO 03/16/21 21:00 04/20/21 12:46 DC 04/18/21 07:58 Non-Formulary Medication (Methyl Salicylate/ Menthol (Analgesic [place])) 1 belinda PRN QID PRN TP MUSCLE PAIN 03/16/21 16:00 UNV Multivitamins/ Calcium (Thera-M Plus) 1 tab DAILY PO 03/17/21 09:00 04/20/21 08:25 Polyethylene Glycol (miraLAX) 17 gm DAILY PO 03/17/21 09:00 04/12/21 16:42 DC 04/10/21 08:18 Vitamin D (Vitamin D3) 50,000 unit WEEKLY PO 03/23/21 09:00 04/20/21 08:25 Cetirizine HCl (ZyrTEC) 10 mg DAILY PO 03/17/21 09:00 04/20/21 08:25 Sertraline HCl (Zoloft) 50 mg DAILY PO 03/17/21 09:00 03/18/21 18:34 DC 03/18/21 08:31 Denosumab (Prolia) 60 mg QMONTH SQ 04/15/21 09:00 UNV Phenytoin Sodium (Dilantin) 100 mg BID92 PO 03/17/21 09:00 Cancel Tramadol HCl (Ultram) 50 mg PRN BID PRN PO MOD-SEV PAIN 03/16/21 16:15 04/13/21 19:38 Trazodone HCl (Desyrel) 50 mg QHS PO 03/16/21 21:00 04/20/21 20:56 Ascorbic Acid (Vitamin C) 1,000 mg DAILY PO 03/17/21 09:00 04/20/21 08:25 Melatonin (Melatonin) 6 mg HS PO 03/16/21 21:00 04/20/21 20:56 Zinc Sulfate (Orazinc) 220 mg DAILY PO 03/17/21 09:00 04/20/21 08:25 Sertraline HCl (Zoloft) 75 mg DAILY PO 03/19/21 09:00 04/18/21 18:15 DC 04/18/21 07:59 Olanzapine (ZyPREXA ZYDIS) 2.5 mg PRN Q2HR PRN PO PSYCHOSIS 03/19/21 20:15 04/07/21 15:55 Influenza Virus Vaccine Quadrival (Flulaval Quad [id number] Syringe) 0.5 ml ONCE ONCE VAX IM 03/25/21 09:00 03/25/21 09:01 DC 03/25/21 11:05 Gabapentin (Neurontin) 100 mg TID PO 03/24/21 21:00 03/26/21 11:42 DC 03/26/21 08:24 Gabapentin (Neurontin) 200 mg TID PO 03/26/21 14:00 03/29/21 16:00 DC 03/29/21 13:10 Valproic Acid (Depakene) 250 mg BID PO 03/29/21 21:00 04/02/21 10:15 DC 04/02/21 08:26 Valproic Acid (Depakene) 500 mg BID PO 04/02/21 21:00 04/20/21 20:56 Nystatin (Nystop) 1 belinda BID TP 04/03/21 21:00 04/20/21 20:57 Vitamin A/Vitamin D (Vitamin A & D Ointment) 1 belinda PRN Q1HR PRN TP SKIN PROTECTION 04/03/21 16:45 04/07/21 05:54 Quetiapine Fumarate (SEROquel) 12.5 mg 0900,1300,1700 PO 04/06/21 09:00 04/09/21 01:06 DC 04/08/21 17:03 Quetiapine Fumarate (SEROquel) 12.5 mg QID@0900,1200,1500,1700 PO 04/09/21 09:00 04/20/21 17:35 Phenytoin Sodium (Dilantin) 300 mg 1700 PO 04/12/21 17:00 04/20/21 17:35 Potassium Chloride (Klor-Con) 20 meq 0800,1700 PO 04/12/21 17:00 04/20/21 17:35 Polyethylene Glycol (miraLAX) 17 gm PRN DAILY PRN PO 1ST CHOICE CONSTIPATION 04/12/21 16:45 Sertraline HCl (Zoloft) 100 mg DAILY PO 04/19/21 09:00 04/20/21 08:25 Benzocaine (Ora-Jel Maximum) 1 belinda PRN QID PRN TP ORAL PAIN 04/20/21 12:45 04/24/21 21:00 04/20/21 14:55 Docusate Sodium (Colace Solution) 100 mg 1X ONCE PO 04/20/21 12:45 04/20/21 12:57 DC Psyllium Hydrophilic Mucilloid (Metamucil) 1 pkt DAILY PO 04/21/21 09:00 Current Medications Medications (Trade) Dose Ordered Sig/Kassidy Route PRN Reason Start Time Stop Time Status Last Admin Dose Admin Benzocaine (Ora-Jel Maximum) 1 belinda PRN QID PRN TP ORAL PAIN 04/20/21 12:45 04/24/21 21:00 04/20/21 14:55 I have reviewed the current psychotropics carefully including drug interactions. Risk benefit ratio favors no change other than as noted in my dictated progress note. Diagnosis: Problems: (1) Major depressive disorder with psychotic features (2) Intellectual disability (3) Anxiety disorder, unspecified (4) Impulse control disorder, unspecified GAMALIEL MALLOY MD Apr 20, 2021 21:29
--- NOTE | 2021-04-21 02:01 | NUR ---
Nursing Note pt up in chair in hallway moans on and off loudly. Resists taking meds from me. Spits them out at me on her chest and arm. Meds given in a small amount of vanilla shake later. Pt attempts to hit and bite staff during ADL's. Pt states nothing that resembles anything intelligible just moaning.
[2021-04-21 05:59] VITALS: BP 119/68
[2021-04-21] MEDS: LEVOTHYROXINE 50 MCG TABLET PO SCH (06:00)
[2021-04-21] MEDS: VALPROATE ACID 250 MG/5 ML ORAL SOLUTION PO SCH ×2 (08:38→21:07)
[2021-04-21] MEDS: ZINC SULFATE 220 MG CAPSULE. PO SCH (08:38)
[2021-04-21] MEDS: ASPIRIN CHEWABLE 81 MG TABLET. PO SCH (08:38)
[2021-04-21] MEDS: MULTIVITAMIN with MINERAL TABLET. PO SCH (08:38)
[2021-04-21] MEDS: ASCORBIC ACID 500 MG TABLET PO SCH (08:38)
[2021-04-21] MEDS: CETIRIZINE HCL 10 MG TABLET PO SCH (08:39)
[2021-04-21] MEDS: PSYLLIUM SEED (WITH SUGAR) PACKET. PO SCH (08:39)
[2021-04-21] MEDS: POTASSIUM CHLORIDE 20 MEQ TABLET.ER. PO SCH ×2 (08:39→17:27)
[2021-04-21] MEDS: NYSTATIN TOPICAL POWDER 15GM BOTTLE. TP SCH ×2 (08:39→21:07)
[2021-04-21] MEDS: SERTRALINE 100 MG TABLET. PO SCH (08:39)
[2021-04-21] MEDS: QUEtiapine 25 MG TABLET. PO SCH ×4 (08:39→17:27)
--- NOTE | 2021-04-21 14:26 | NUR ---
Nursing note: Patient in hallway for morning medication and assessment. Medications taken crushed in pudding or syringed. She continues to need encouragement to take medications this shift and tries to spit them out. She has limited verbal interaction r/t intellectual disability. Appears to have lower left tooth pain, PRN medication given per order. Patient has said hi to peers & staff as she passes them in the mathews. She propels self in w/c, requires a [facility] or 2 person transfer. She continues to periodically yell or grunt out as well as being resistive to cares. She is currently in the mathews sitting in w/c. Will continue to monitor.
[2021-04-21 15:37] VITALS: BP 131/62
--- NOTE | 2021-04-21 15:56 | NUR ---
FIORDALIZA spoke with Gretel to schedule tentative discharge for Tuesday. Gretel stated that she planed to make arrangements and would call FIORDALIZA back to confirm. SW awaiting confirmation.
[2021-04-21] MEDS: PHENYTOIN SODIUM EXTENDED 100 MG CAPSULE PO SCH (17:27)
[2021-04-21] MEDS: MIRTAZAPINE 7.5 MG TABLET. PO SCH (21:08)
[2021-04-21] MEDS: traZODone 50 MG TABLET. PO SCH (21:08)
[2021-04-21] MEDS: MELATONIN 3 MG TABLET PO SCH (21:09)
--- NOTE | 2021-04-21 22:47 | PDOC ---
Exam Note: Brooks Note: Please also refer to the separate dictated note~for this date of service dictated separately.~Patient seen individually. Discussed the patient with Nursing staff reviewed the chart.~Reviewed interim history and current functioning. Reviewed vital signs,~Labs/ Radiology~and current medications noted below. Continue current treatment with the changes noted in the dictated addendum note Assessment: Vital Signs/I&O: Vital Signs Date Time Temp Pulse Resp B/P (MAP) Pulse Ox O2 Delivery O2 Flow Rate FiO2 04/21/21 15:37 98.7 86 18 131/62 (85) 96 04/19/21 15:36 Room Air I & O 04/20/21 04/20/21 04/21/21 15:00 23:00 07:00 Intake Total 200 ml 440 ml Balance 200 ml 440 ml Current Medications: Meds: Current Medications Medications (Trade) Dose Ordered Sig/Kassidy Route PRN Reason Start Time Stop Time Status Last Admin Dose Admin Acetaminophen (Tylenol) 650 mg PRN Q6HRS PRN PO MILD PAIN / TEMP > 100.3'F 03/16/21 15:45 03/30/21 15:04 Multi-Ingredient Ointment (Analgesic [place]) 1 belinda PRN QID PRN TP MUSCLE PAIN 03/16/21 15:45 Al Hydroxide/Mg Hydroxide (Mylanta Plus Xs) 15 ml PRN AFTMEALHC PRN PO DYSPEPSIA 03/16/21 15:45 Magnesium Hydroxide (Milk Of Magnesia) 2,400 mg PRN QHS PRN PO 2ND CHOICE CONSTIPATION 03/16/21 15:45 Acetaminophen (Tylenol) 650 mg PRN Q6HRS PRN PO pain or fever 03/16/21 16:00 UNV Aspirin (Aspirin Chewable) 81 mg DAILY PO 03/17/21 09:00 04/21/21 08:38 Levothyroxine Sodium (Synthroid) 50 mcg DAILY06 PO 03/17/21 06:00 04/21/21 06:00 Al Hydroxide/Mg Hydroxide (Mylanta Plus Xs) 15 ml PRN AFTMEALHC PRN PO DYSPEPSIA 03/16/21 16:00 UNV Magnesium Hydroxide (Milk Of Magnesia) 2,400 mg PRN QHS PRN PO CONSTIPATION 03/16/21 16:00 UNV Metolazone (Zaroxolyn) 5 mg QMWF@0900 PO 03/18/21 09:00 04/20/21 08:25 Mirtazapine (Remeron) 7.5 mg QHS PO 03/16/21 21:00 04/21/21 21:08 Phenytoin Sodium (Dilantin) 300 mg QHS PO 03/16/21 21:00 04/12/21 11:07 DC 04/11/21 21:03 Potassium Chloride (Klor-Con) 20 meq BID PO 03/16/21 21:00 04/12/21 11:07 DC 04/12/21 09:11 Sennosides (Senna) 8.6 mg BID PO 03/16/21 21:00 04/20/21 12:46 DC 04/18/21 07:58 Non-Formulary Medication (Methyl Salicylate/ Menthol (Analgesic [place])) 1 belinda PRN QID PRN TP MUSCLE PAIN 03/16/21 16:00 UNV Multivitamins/ Calcium (Thera-M Plus) 1 tab DAILY PO 03/17/21 09:00 04/21/21 08:38 Polyethylene Glycol (miraLAX) 17 gm DAILY PO 03/17/21 09:00 04/12/21 16:42 DC 04/10/21 08:18 Vitamin D (Vitamin D3) 50,000 unit WEEKLY PO 03/23/21 09:00 04/20/21 08:25 Cetirizine HCl (ZyrTEC) 10 mg DAILY PO 03/17/21 09:00 04/21/21 08:39 Sertraline HCl (Zoloft) 50 mg DAILY PO 03/17/21 09:00 03/18/21 18:34 DC 03/18/21 08:31 Denosumab (Prolia) 60 mg QMONTH SQ 04/15/21 09:00 UNV Phenytoin Sodium (Dilantin) 100 mg BID92 PO 03/17/21 09:00 Cancel Tramadol HCl (Ultram) 50 mg PRN BID PRN PO MOD-SEV PAIN 03/16/21 16:15 04/13/21 19:38 Trazodone HCl (Desyrel) 50 mg QHS PO 03/16/21 21:00 04/21/21 21:08 Ascorbic Acid (Vitamin C) 1,000 mg DAILY PO 03/17/21 09:00 04/21/21 08:38 Melatonin (Melatonin) 6 mg HS PO 03/16/21 21:00 04/21/21 21:09 Zinc Sulfate (Orazinc) 220 mg DAILY PO 03/17/21 09:00 04/21/21 08:38 Sertraline HCl (Zoloft) 75 mg DAILY PO 03/19/21 09:00 04/18/21 18:15 DC 04/18/21 07:59 Olanzapine (ZyPREXA ZYDIS) 2.5 mg PRN Q2HR PRN PO PSYCHOSIS 03/19/21 20:15 04/07/21 15:55 Influenza Virus Vaccine Quadrival (Flulaval Quad [id number] Syringe) 0.5 ml ONCE ONCE VAX IM 03/25/21 09:00 03/25/21 09:01 DC 03/25/21 11:05 Gabapentin (Neurontin) 100 mg TID PO 03/24/21 21:00 03/26/21 11:42 DC 03/26/21 08:24 Gabapentin (Neurontin) 200 mg TID PO 03/26/21 14:00 03/29/21 16:00 DC 03/29/21 13:10 Valproic Acid (Depakene) 250 mg BID PO 03/29/21 21:00 04/02/21 10:15 DC 04/02/21 08:26 Valproic Acid (Depakene) 500 mg BID PO 04/02/21 21:00 04/21/21 21:07 Nystatin (Nystop) 1 belinda BID TP 04/03/21 21:00 04/21/21 21:07 Vitamin A/Vitamin D (Vitamin A & D Ointment) 1 belinda PRN Q1HR PRN TP SKIN PROTECTION 04/03/21 16:45 04/07/21 05:54 Quetiapine Fumarate (SEROquel) 12.5 mg 0900,1300,1700 PO 04/06/21 09:00 04/09/21 01:06 DC 04/08/21 17:03 Quetiapine Fumarate (SEROquel) 12.5 mg QID@0900,1200,1500,1700 PO 04/09/21 09:00 04/21/21 17:27 Phenytoin Sodium (Dilantin) 300 mg 1700 PO 04/12/21 17:00 04/21/21 17:27 Potassium Chloride (Klor-Con) 20 meq 0800,1700 PO 04/12/21 17:00 04/21/21 17:27 Polyethylene Glycol (miraLAX) 17 gm PRN DAILY PRN PO 1ST CHOICE CONSTIPATION 04/12/21 16:45 Sertraline HCl (Zoloft) 100 mg DAILY PO 04/19/21 09:00 04/21/21 08:39 Benzocaine (Ora-Jel Maximum) 1 belinda PRN QID PRN TP ORAL PAIN 04/20/21 12:45 04/24/21 21:00 04/20/21 14:55 Docusate Sodium (Colace Solution) 100 mg 1X ONCE PO 04/20/21 12:45 04/20/21 12:57 DC Psyllium Hydrophilic Mucilloid (Metamucil) 1 pkt DAILY PO 04/21/21 09:00 I have reviewed the current psychotropics carefully including drug interactions. Risk benefit ratio favors no change other than as noted in my dictated progress note. Diagnosis: Problems: (1) Impulse control disorder, unspecified (2) Anxiety disorder, unspecified (3) Major depressive disorder with psychotic features (4) Intellectual disability GAMALIEL MALLOY MD Apr 21, 2021 22:47
--- NOTE | 2021-04-21 23:28 | PN ---
DATE: 04/19/2021 PSYCHIATRIC PROGRESS NOTE This late entry 04/19/2021 covers elements not covered in my initial note. I met with the patient on the evening of 04/19/2021. Discussed with TRENT Sandoval. SUBJECTIVE: The patient slept 7-1/2 hours previous night. Overall, she remains restless, anxious with mood lability, consistent with her diagnosis, but perhaps less so at some time. REVIEW OF SYSTEMS: Ambulation impaired, in wheelchair. No CV, , pulmonary, eye, ENT system symptoms on review. Reliability poor. MENTAL STATUS EXAMINATION: Oriented to herself. Insight, judgment, recent and remote memory, attention, concentration, fund of knowledge poor consistent with her diagnosis. IMPRESSION: Unchanged from initial note. PLAN: Continue psychotropics from initial note. Valproic acid level therapeutic at 57. Continue Zoloft, trazodone, Dilantin, melatonin, Depakene, Remeron and Seroquel. May need to increase Seroquel if mood lability resurfaces. KALYAN DR: Matt TID: [id number]
--- NOTE | 2021-04-21 23:35 | PN ---
DATE: 04/20/2021 PSYCHIATRIC PROGRESS NOTE This is a late entry of 04/20 that covers elements not covered in my initial note. I met with the patient on the evening of 04/20/2021. SUBJECTIVE: The patient slept 9-1/2 hours previous night. Discussed with TRENT Davies. UA shows Enterobacter faecalis. We will defer to Dr. Diaz, seems to be contaminated. She is resistive to medications. She refused Senna because she states it tastes bad. REVIEW OF SYSTEMS: Ambulation impaired, in wheelchair. No CV, , pulmonary, eye system symptoms on review. Reliability poor. MENTAL STATUS EXAMINATION: Oriented to herself. Insight, judgment, recent and remote memory, attention, concentration, fund of knowledge poor consistent with her diagnoses. IMPRESSION: Copy from initial note. PLAN: Continue current psychotropics. Valproic acid level and Dilantin level are therapeutic. Continue rest unchanged. DARRYL DR: Matt TID: [id number]
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
[2021-04-22 05:48] VITALS: BP 145/75
[2021-04-22] MEDS: LEVOTHYROXINE 50 MCG TABLET PO SCH (06:00)
[2021-04-22] MEDS: POTASSIUM CHLORIDE 20 MEQ TABLET.ER. PO SCH ×2 (08:00→16:32)
[2021-04-22] MEDS: VALPROATE ACID 250 MG/5 ML ORAL SOLUTION PO SCH ×2 (08:50→20:37)
[2021-04-22] MEDS: SERTRALINE 100 MG TABLET. PO SCH (08:51)
[2021-04-22] MEDS: ASPIRIN CHEWABLE 81 MG TABLET. PO SCH (08:51)
[2021-04-22] MEDS: CETIRIZINE HCL 10 MG TABLET PO SCH (08:51)
[2021-04-22] MEDS: ASCORBIC ACID 500 MG TABLET PO SCH (08:51)
[2021-04-22] MEDS: QUEtiapine 25 MG TABLET. PO SCH ×4 (08:51→16:32)
[2021-04-22] MEDS: metOLazone 5 MG TABLET PO SCH (08:51)
[2021-04-22] MEDS: MULTIVITAMIN with MINERAL TABLET. PO SCH (08:52)
[2021-04-22] MEDS: PSYLLIUM SEED (WITH SUGAR) PACKET. PO SCH (08:52)
[2021-04-22] MEDS: ZINC SULFATE 220 MG CAPSULE. PO SCH (08:52)
[2021-04-22] MEDS: NYSTATIN TOPICAL POWDER 15GM BOTTLE. TP SCH ×2 (11:13→20:38)
[2021-04-22] MEDS ORDERED: levoFLOXacin 250 MG TABLET PO SCH (12:30)
--- NOTE | 2021-04-22 14:38 | NUR ---
Nursing note : Pt has been yelling out intermittently during this shift as well as complaining of being hot and stripping off gown. This nurse informed doctor of Pt symptoms of possible UTI with orders received to obtain a urine culture and start antibiotics. This nurse attempted multiple times this shift to obtain urine sample unsuccessfully. Will continue to obtain and if unable to obtain on this shift will inform oncoming shift of urine specimen need.
[2021-04-22 15:51] VITALS: BP 127/60
[2021-04-22] MEDS: PHENYTOIN SODIUM EXTENDED 100 MG CAPSULE PO SCH (16:31)
[2021-04-22] MEDS: MELATONIN 3 MG TABLET PO SCH (20:37)
[2021-04-22] MEDS: MIRTAZAPINE 7.5 MG TABLET. PO SCH (20:37)
[2021-04-22] MEDS: traZODone 50 MG TABLET. PO SCH (20:37)
--- NOTE | 2021-04-22 21:50 | PDOC ---
Exam Note: Brooks Note: Please also refer to the separate dictated note~for this date of service dictated separately.~Patient seen individually. Discussed the patient with Nursing staff reviewed the chart.~Reviewed interim history and current functioning. Reviewed vital signs,~Labs/ Radiology~and current medications noted below. Continue current treatment with the changes noted in the dictated addendum note Assessment: Vital Signs/I&O: Vital Signs Date Time Temp Pulse Resp B/P (MAP) Pulse Ox O2 Delivery O2 Flow Rate FiO2 04/22/21 15:51 97.8 68 18 127/60 (82) 100 04/19/21 15:36 Room Air I & O 04/21/21 04/21/21 04/22/21 15:00 23:00 07:00 Intake Total 180 ml 360 ml Balance 180 ml 360 ml Current Medications: Meds: Current Medications Medications (Trade) Dose Ordered Sig/Kassidy Route PRN Reason Start Time Stop Time Status Last Admin Dose Admin Acetaminophen (Tylenol) 650 mg PRN Q6HRS PRN PO MILD PAIN / TEMP > 100.3'F 03/16/21 15:45 03/30/21 15:04 Multi-Ingredient Ointment (Analgesic [place]) 1 belinda PRN QID PRN TP MUSCLE PAIN 03/16/21 15:45 Al Hydroxide/Mg Hydroxide (Mylanta Plus Xs) 15 ml PRN AFTMEALHC PRN PO DYSPEPSIA 03/16/21 15:45 Magnesium Hydroxide (Milk Of Magnesia) 2,400 mg PRN QHS PRN PO 2ND CHOICE CONSTIPATION 03/16/21 15:45 Acetaminophen (Tylenol) 650 mg PRN Q6HRS PRN PO pain or fever 03/16/21 16:00 UNV Aspirin (Aspirin Chewable) 81 mg DAILY PO 03/17/21 09:00 04/22/21 08:51 Levothyroxine Sodium (Synthroid) 50 mcg DAILY06 PO 03/17/21 06:00 04/22/21 06:00 Al Hydroxide/Mg Hydroxide (Mylanta Plus Xs) 15 ml PRN AFTMEALHC PRN PO DYSPEPSIA 03/16/21 16:00 UNV Magnesium Hydroxide (Milk Of Magnesia) 2,400 mg PRN QHS PRN PO CONSTIPATION 03/16/21 16:00 UNV Metolazone (Zaroxolyn) 5 mg QMWF@0900 PO 03/18/21 09:00 04/22/21 08:51 Mirtazapine (Remeron) 7.5 mg QHS PO 03/16/21 21:00 04/22/21 20:37 Phenytoin Sodium (Dilantin) 300 mg QHS PO 03/16/21 21:00 04/12/21 11:07 DC 04/11/21 21:03 Potassium Chloride (Klor-Con) 20 meq BID PO 03/16/21 21:00 04/12/21 11:07 DC 04/12/21 09:11 Sennosides (Senna) 8.6 mg BID PO 03/16/21 21:00 04/20/21 12:46 DC 04/18/21 07:58 Non-Formulary Medication (Methyl Salicylate/ Menthol (Analgesic [place])) 1 belinda PRN QID PRN TP MUSCLE PAIN 03/16/21 16:00 UNV Multivitamins/ Calcium (Thera-M Plus) 1 tab DAILY PO 03/17/21 09:00 04/21/21 08:38 Polyethylene Glycol (miraLAX) 17 gm DAILY PO 03/17/21 09:00 04/12/21 16:42 DC 04/10/21 08:18 Vitamin D (Vitamin D3) 50,000 unit WEEKLY PO 03/23/21 09:00 04/20/21 08:25 Cetirizine HCl (ZyrTEC) 10 mg DAILY PO 03/17/21 09:00 04/22/21 08:51 Sertraline HCl (Zoloft) 50 mg DAILY PO 03/17/21 09:00 03/18/21 18:34 DC 03/18/21 08:31 Denosumab (Prolia) 60 mg QMONTH SQ 04/15/21 09:00 UNV Phenytoin Sodium (Dilantin) 100 mg BID92 PO 03/17/21 09:00 Cancel Tramadol HCl (Ultram) 50 mg PRN BID PRN PO MOD-SEV PAIN 03/16/21 16:15 04/13/21 19:38 Trazodone HCl (Desyrel) 50 mg QHS PO 03/16/21 21:00 04/22/21 20:37 Ascorbic Acid (Vitamin C) 1,000 mg DAILY PO 03/17/21 09:00 04/22/21 08:51 Melatonin (Melatonin) 6 mg HS PO 03/16/21 21:00 04/22/21 20:37 Zinc Sulfate (Orazinc) 220 mg DAILY PO 03/17/21 09:00 04/21/21 08:38 Sertraline HCl (Zoloft) 75 mg DAILY PO 03/19/21 09:00 04/18/21 18:15 DC 04/18/21 07:59 Olanzapine (ZyPREXA ZYDIS) 2.5 mg PRN Q2HR PRN PO PSYCHOSIS 03/19/21 20:15 04/07/21 15:55 Influenza Virus Vaccine Quadrival (Flulaval Quad [id number] Syringe) 0.5 ml ONCE ONCE VAX IM 03/25/21 09:00 03/25/21 09:01 DC 03/25/21 11:05 Gabapentin (Neurontin) 100 mg TID PO 03/24/21 21:00 03/26/21 11:42 DC 03/26/21 08:24 Gabapentin (Neurontin) 200 mg TID PO 03/26/21 14:00 03/29/21 16:00 DC 03/29/21 13:10 Valproic Acid (Depakene) 250 mg BID PO 03/29/21 21:00 04/02/21 10:15 DC 04/02/21 08:26 Valproic Acid (Depakene) 500 mg BID PO 04/02/21 21:00 04/22/21 20:37 Nystatin (Nystop) 1 belinda BID TP 04/03/21 21:00 04/22/21 20:38 Vitamin A/Vitamin D (Vitamin A & D Ointment) 1 belinda PRN Q1HR PRN TP SKIN PROTECTION 04/03/21 16:45 04/07/21 05:54 Quetiapine Fumarate (SEROquel) 12.5 mg 0900,1300,1700 PO 04/06/21 09:00 04/09/21 01:06 DC 04/08/21 17:03 Quetiapine Fumarate (SEROquel) 12.5 mg QID@0900,1200,1500,1700 PO 04/09/21 09:00 04/22/21 16:32 Phenytoin Sodium (Dilantin) 300 mg 1700 PO 04/12/21 17:00 04/22/21 16:31 Potassium Chloride (Klor-Con) 20 meq 0800,1700 PO 04/12/21 17:00 04/21/21 17:27 Polyethylene Glycol (miraLAX) 17 gm PRN DAILY PRN PO 1ST CHOICE CONSTIPATION 04/12/21 16:45 Sertraline HCl (Zoloft) 100 mg DAILY PO 04/19/21 09:00 04/22/21 08:51 Benzocaine (Ora-Jel Maximum) 1 belinda PRN QID PRN TP ORAL PAIN 04/20/21 12:45 04/24/21 21:00 04/20/21 14:55 Docusate Sodium (Colace Solution) 100 mg 1X ONCE PO 04/20/21 12:45 04/20/21 12:57 DC Psyllium Hydrophilic Mucilloid (Metamucil) 1 pkt DAILY PO 04/21/21 09:00 Levofloxacin (Levaquin) 250 mg DAILY06 PO 04/22/21 12:30 04/22/21 12:23 DC Levofloxacin (Levaquin) 250 mg DAILY06 PO 04/23/21 06:00 04/28/21 05:59 I have reviewed the current psychotropics carefully including drug interactions. Risk benefit ratio favors no change other than as noted in my dictated progress note. Diagnosis: Problems: (1) Major depressive disorder with psychotic features (2) Intellectual disability (3) Anxiety disorder, unspecified (4) Impulse control disorder, unspecified GAMALIEL MALLOY MD Apr 22, 2021 21:50
[2021-04-23] MEDS: levoFLOXacin 250 MG TABLET PO SCH (05:54)
[2021-04-23] MEDS: LEVOTHYROXINE 50 MCG TABLET PO SCH (05:56)
[2021-04-23 06:26] VITALS: BP 136/81
[2021-04-23] MEDS: traMADol 50 MG TABLET PO PRN (08:06)
[2021-04-23] MEDS: SERTRALINE 100 MG TABLET. PO SCH (08:07)
[2021-04-23] MEDS: QUEtiapine 25 MG TABLET. PO SCH ×4 (08:07→17:24)
[2021-04-23] MEDS: ZINC SULFATE 220 MG CAPSULE. PO SCH (08:07)
[2021-04-23] MEDS: VALPROATE ACID 250 MG/5 ML ORAL SOLUTION PO SCH ×2 (08:07→20:18)
[2021-04-23] MEDS: CETIRIZINE HCL 10 MG TABLET PO SCH (08:07)
[2021-04-23] MEDS: MULTIVITAMIN with MINERAL TABLET. PO SCH (08:07)
[2021-04-23] MEDS: ASCORBIC ACID 500 MG TABLET PO SCH (08:07)
[2021-04-23] MEDS: POTASSIUM CHLORIDE 20 MEQ TABLET.ER. PO SCH ×2 (08:08→17:24)
[2021-04-23] MEDS: ASPIRIN CHEWABLE 81 MG TABLET. PO SCH (08:08)
[2021-04-23] MEDS: PSYLLIUM SEED (WITH SUGAR) PACKET. PO SCH (09:00)
[2021-04-23] MEDS: NYSTATIN TOPICAL POWDER 15GM BOTTLE. TP SCH ×2 (10:00→20:18)
--- NOTE | 2021-04-23 11:30 | NUR ---
Attempted to provide patient's morning medications crushed in cola. Patient drank a small portion of the mixture then refused to drink any more. Further attempts to provide the medications were unsuccessful. Unable to estimate how much medication patient ingested. Will continue to monitor and report to MD during rounds.
--- NOTE | 2021-04-23 12:12 | NUR ---
WEEKLY ACTIVITY THERAPY NOTE Date of Admission:03/16/21 Date of AT Assessment: 03/18 Precipitating behaviors that initiated intake and admission: PA towards peers, chasing peers in mathews, yelling & screaming, refusing medications. Goal aimed: increase stress management and relaxation skills Initial Goal: Pt will participate in at least three individual or group Activity Therapy sessions before discharge Goal repeated 04/02 Weekly progress towards goal: on track(04/13-movie Favorite Words) Group participation level: none Weekly highlights: no participation Behaviors observed: wandering, grunting, slapped her hands on her legs Plan: no change to goal Beneficial adaptations: redirection
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
[2021-04-23 16:12] VITALS: BP 117/96
[2021-04-23] MEDS: PHENYTOIN SODIUM EXTENDED 100 MG CAPSULE PO SCH (17:23)
[2021-04-23] MEDS: MELATONIN 3 MG TABLET PO SCH (20:18)
[2021-04-23] MEDS: traZODone 50 MG TABLET. PO SCH (20:19)
[2021-04-23] MEDS: MIRTAZAPINE 7.5 MG TABLET. PO SCH (20:19)
--- NOTE | 2021-04-23 22:10 | PDOC ---
Exam Note: Brooks Note: This note is a late entry for 04/21/2021 covers elements not covered in my initial note. Subjective: The patient was seen individually in the evening of 04/21/2021 with Keke NEWMAN, discussed and reviewed the chart. The patient slept 7-1/4 hours previous night. Her UA is contaminated. Reportedly Viviana NEWMAN tried to straight cath and the patient was unsuccessful, this will be attempted again tonight. We will defer to Dr. Diaz. Review of Systems: Ambulation impaired in wheelchair. No CV, , pulmonary, eye, ENT system symptoms on review. Reliability poor. Mental Status Exam: The patient is oriented to herself. Insight and judgment, recent and remote memory, attention and concentration, fund of knowledge is poor consistent with her diagnoses. Laboratory Data: Reviewed. Impression: Major depressive disorder with psychotic features. Anxiety disorder unspecified. Impulse control disorder unspecified. Intellectual disability. Plan: Continue current psychotropics unchanged for now. Check UA, rule out UTI. Assessment: Vital Signs/I&O: Vital Signs Date Time Temp Pulse Resp B/P (MAP) Pulse Ox O2 Delivery O2 Flow Rate FiO2 04/23/21 16:12 98.0 73 20 117/96 (103) 92 04/23/21 08:45 Room Air I & O 04/22/21 04/22/21 04/23/21 15:00 23:00 07:00 Intake Total 440 ml 480 ml 100 ml Balance 440 ml 480 ml 100 ml Current Medications: Meds: Current Medications Medications (Trade) Dose Ordered Sig/Kassidy Route PRN Reason Start Time Stop Time Status Last Admin Dose Admin Acetaminophen (Tylenol) 650 mg PRN Q6HRS PRN PO MILD PAIN / TEMP > 100.3'F 03/16/21 15:45 03/30/21 15:04 Multi-Ingredient Ointment (Analgesic [place]) 1 belinda PRN QID PRN TP MUSCLE PAIN 03/16/21 15:45 Al Hydroxide/Mg Hydroxide (Mylanta Plus Xs) 15 ml PRN AFTMEALHC PRN PO DYSPEPSIA 03/16/21 15:45 Magnesium Hydroxide (Milk Of Magnesia) 2,400 mg PRN QHS PRN PO 2ND CHOICE CONSTIPATION 03/16/21 15:45 Acetaminophen (Tylenol) 650 mg PRN Q6HRS PRN PO pain or fever 03/16/21 16:00 UNV Aspirin (Aspirin Chewable) 81 mg DAILY PO 03/17/21 09:00 04/23/21 08:08 Levothyroxine Sodium (Synthroid) 50 mcg DAILY06 PO 03/17/21 06:00 04/23/21 05:56 Al Hydroxide/Mg Hydroxide (Mylanta Plus Xs) 15 ml PRN AFTMEALHC PRN PO DYSPEPSIA 03/16/21 16:00 UNV Magnesium Hydroxide (Milk Of Magnesia) 2,400 mg PRN QHS PRN PO CONSTIPATION 03/16/21 16:00 UNV Metolazone (Zaroxolyn) 5 mg QMWF@0900 PO 03/18/21 09:00 04/22/21 08:51 Mirtazapine (Remeron) 7.5 mg QHS PO 03/16/21 21:00 04/23/21 20:19 Phenytoin Sodium (Dilantin) 300 mg QHS PO 03/16/21 21:00 04/12/21 11:07 DC 04/11/21 21:03 Potassium Chloride (Klor-Con) 20 meq BID PO 03/16/21 21:00 04/12/21 11:07 DC 04/12/21 09:11 Sennosides (Senna) 8.6 mg BID PO 03/16/21 21:00 04/20/21 12:46 DC 04/18/21 07:58 Non-Formulary Medication (Methyl Salicylate/ Menthol (Analgesic [place])) 1 belinda PRN QID PRN TP MUSCLE PAIN 03/16/21 16:00 UNV Multivitamins/ Calcium (Thera-M Plus) 1 tab DAILY PO 03/17/21 09:00 04/23/21 08:07 Polyethylene Glycol (miraLAX) 17 gm DAILY PO 03/17/21 09:00 04/12/21 16:42 DC 04/10/21 08:18 Vitamin D (Vitamin D3) 50,000 unit WEEKLY PO 03/23/21 09:00 04/20/21 08:25 Cetirizine HCl (ZyrTEC) 10 mg DAILY PO 03/17/21 09:00 04/23/21 08:07 Sertraline HCl (Zoloft) 50 mg DAILY PO 03/17/21 09:00 03/18/21 18:34 DC 03/18/21 08:31 Denosumab (Prolia) 60 mg QMONTH SQ 04/15/21 09:00 UNV Phenytoin Sodium (Dilantin) 100 mg BID92 PO 03/17/21 09:00 Cancel Tramadol HCl (Ultram) 50 mg PRN BID PRN PO MOD-SEV PAIN 03/16/21 16:15 04/23/21 08:06 Trazodone HCl (Desyrel) 50 mg QHS PO 03/16/21 21:00 04/23/21 20:19 Ascorbic Acid (Vitamin C) 1,000 mg DAILY PO 03/17/21 09:00 04/23/21 08:07 Melatonin (Melatonin) 6 mg HS PO 03/16/21 21:00 04/23/21 20:18 Zinc Sulfate (Orazinc) 220 mg DAILY PO 03/17/21 09:00 04/23/21 08:07 Sertraline HCl (Zoloft) 75 mg DAILY PO 03/19/21 09:00 04/18/21 18:15 DC 04/18/21 07:59 Olanzapine (ZyPREXA ZYDIS) 2.5 mg PRN Q2HR PRN PO PSYCHOSIS 03/19/21 20:15 04/07/21 15:55 Influenza Virus Vaccine Quadrival (Flulaval Quad [id number] Syringe) 0.5 ml ONCE ONCE VAX IM 03/25/21 09:00 03/25/21 09:01 DC 03/25/21 11:05 Gabapentin (Neurontin) 100 mg TID PO 03/24/21 21:00 03/26/21 11:42 DC 03/26/21 08:24 Gabapentin (Neurontin) 200 mg TID PO 03/26/21 14:00 03/29/21 16:00 DC 03/29/21 13:10 Valproic Acid (Depakene) 250 mg BID PO 03/29/21 21:00 04/02/21 10:15 DC 04/02/21 08:26 Valproic Acid (Depakene) 500 mg BID PO 04/02/21 21:00 04/23/21 20:18 Nystatin (Nystop) 1 belinda BID TP 04/03/21 21:00 04/23/21 20:18 Vitamin A/Vitamin D (Vitamin A & D Ointment) 1 belinda PRN Q1HR PRN TP SKIN PROTECTION 04/03/21 16:45 04/07/21 05:54 Quetiapine Fumarate (SEROquel) 12.5 mg 0900,1300,1700 PO 04/06/21 09:00 04/09/21 01:06 DC 04/08/21 17:03 Quetiapine Fumarate (SEROquel) 12.5 mg QID@0900,1200,1500,1700 PO 04/09/21 09:00 04/23/21 17:24 Phenytoin Sodium (Dilantin) 300 mg 1700 PO 04/12/21 17:00 04/23/21 17:23 Potassium Chloride (Klor-Con) 20 meq 0800,1700 PO 04/12/21 17:00 04/23/21 17:24 Polyethylene Glycol (miraLAX) 17 gm PRN DAILY PRN PO 1ST CHOICE CONSTIPATION 04/12/21 16:45 Sertraline HCl (Zoloft) 100 mg DAILY PO 04/19/21 09:00 04/23/21 08:07 Benzocaine (Ora-Jel Maximum) 1 belinda PRN QID PRN TP ORAL PAIN 04/20/21 12:45 04/24/21 21:00 04/20/21 14:55 Docusate Sodium (Colace Solution) 100 mg 1X ONCE PO 04/20/21 12:45 04/20/21 12:57 DC Psyllium Hydrophilic Mucilloid (Metamucil) 1 pkt DAILY PO 04/21/21 09:00 Levofloxacin (Levaquin) 250 mg DAILY06 PO 04/22/21 12:30 04/22/21 12:23 DC Levofloxacin (Levaquin) 250 mg DAILY06 PO 04/23/21 06:00 04/28/21 05:59 04/23/21 05:54 Current Medications Medications (Trade) Dose Ordered Sig/Kassidy Route PRN Reason Start Time Stop Time Status Last Admin Dose Admin Levofloxacin (Levaquin) 250 mg DAILY06 PO 04/23/21 06:00 04/28/21 05:59 04/23/21 05:54 I have reviewed the current psychotropics carefully including drug interactions. Risk benefit ratio favors no change other than as noted in my dictated progress note. Diagnosis: Problems: (1) Major depressive disorder with psychotic features (2) Intellectual disability (3) Anxiety disorder, unspecified (4) Impulse control disorder, unspecified GAMALIEL MALLOY MD Apr 23, 2021 22:09
--- NOTE | 2021-04-23 22:31 | PDOC ---
Exam Note: Brooks Note: Please also refer to the separate dictated note~for this date of service dictated separately.~Patient seen individually. Discussed the patient with Nursing staff reviewed the chart.~Reviewed interim history and current functioning. Reviewed vital signs,~Labs/ Radiology~and current medications noted below. Continue current treatment with the changes noted in the dictated addendum note Assessment: Vital Signs/I&O: Vital Signs Date Time Temp Pulse Resp B/P (MAP) Pulse Ox O2 Delivery O2 Flow Rate FiO2 04/23/21 16:12 98.0 73 20 117/96 (103) 92 04/23/21 08:45 Room Air I & O 04/22/21 04/22/21 04/23/21 15:00 23:00 07:00 Intake Total 440 ml 480 ml 100 ml Balance 440 ml 480 ml 100 ml Current Medications: Meds: Current Medications Medications (Trade) Dose Ordered Sig/Kassidy Route PRN Reason Start Time Stop Time Status Last Admin Dose Admin Acetaminophen (Tylenol) 650 mg PRN Q6HRS PRN PO MILD PAIN / TEMP > 100.3'F 03/16/21 15:45 03/30/21 15:04 Multi-Ingredient Ointment (Analgesic [place]) 1 belinda PRN QID PRN TP MUSCLE PAIN 03/16/21 15:45 Al Hydroxide/Mg Hydroxide (Mylanta Plus Xs) 15 ml PRN AFTMEALHC PRN PO DYSPEPSIA 03/16/21 15:45 Magnesium Hydroxide (Milk Of Magnesia) 2,400 mg PRN QHS PRN PO 2ND CHOICE CONSTIPATION 03/16/21 15:45 Acetaminophen (Tylenol) 650 mg PRN Q6HRS PRN PO pain or fever 03/16/21 16:00 UNV Aspirin (Aspirin Chewable) 81 mg DAILY PO 03/17/21 09:00 04/23/21 08:08 Levothyroxine Sodium (Synthroid) 50 mcg DAILY06 PO 03/17/21 06:00 04/23/21 05:56 Al Hydroxide/Mg Hydroxide (Mylanta Plus Xs) 15 ml PRN AFTMEALHC PRN PO DYSPEPSIA 03/16/21 16:00 UNV Magnesium Hydroxide (Milk Of Magnesia) 2,400 mg PRN QHS PRN PO CONSTIPATION 03/16/21 16:00 UNV Metolazone (Zaroxolyn) 5 mg QMWF@0900 PO 03/18/21 09:00 04/22/21 08:51 Mirtazapine (Remeron) 7.5 mg QHS PO 03/16/21 21:00 04/23/21 20:19 Phenytoin Sodium (Dilantin) 300 mg QHS PO 03/16/21 21:00 04/12/21 11:07 DC 04/11/21 21:03 Potassium Chloride (Klor-Con) 20 meq BID PO 03/16/21 21:00 04/12/21 11:07 DC 04/12/21 09:11 Sennosides (Senna) 8.6 mg BID PO 03/16/21 21:00 04/20/21 12:46 DC 04/18/21 07:58 Non-Formulary Medication (Methyl Salicylate/ Menthol (Analgesic [place])) 1 belinda PRN QID PRN TP MUSCLE PAIN 03/16/21 16:00 UNV Multivitamins/ Calcium (Thera-M Plus) 1 tab DAILY PO 03/17/21 09:00 04/23/21 08:07 Polyethylene Glycol (miraLAX) 17 gm DAILY PO 03/17/21 09:00 04/12/21 16:42 DC 04/10/21 08:18 Vitamin D (Vitamin D3) 50,000 unit WEEKLY PO 03/23/21 09:00 04/20/21 08:25 Cetirizine HCl (ZyrTEC) 10 mg DAILY PO 03/17/21 09:00 04/23/21 08:07 Sertraline HCl (Zoloft) 50 mg DAILY PO 03/17/21 09:00 03/18/21 18:34 DC 03/18/21 08:31 Denosumab (Prolia) 60 mg QMONTH SQ 04/15/21 09:00 UNV Phenytoin Sodium (Dilantin) 100 mg BID92 PO 03/17/21 09:00 Cancel Tramadol HCl (Ultram) 50 mg PRN BID PRN PO MOD-SEV PAIN 03/16/21 16:15 04/23/21 08:06 Trazodone HCl (Desyrel) 50 mg QHS PO 03/16/21 21:00 04/23/21 20:19 Ascorbic Acid (Vitamin C) 1,000 mg DAILY PO 03/17/21 09:00 04/23/21 08:07 Melatonin (Melatonin) 6 mg HS PO 03/16/21 21:00 04/23/21 20:18 Zinc Sulfate (Orazinc) 220 mg DAILY PO 03/17/21 09:00 04/23/21 08:07 Sertraline HCl (Zoloft) 75 mg DAILY PO 03/19/21 09:00 04/18/21 18:15 DC 04/18/21 07:59 Olanzapine (ZyPREXA ZYDIS) 2.5 mg PRN Q2HR PRN PO PSYCHOSIS 03/19/21 20:15 04/07/21 15:55 Influenza Virus Vaccine Quadrival (Flulaval Quad [id number] Syringe) 0.5 ml ONCE ONCE VAX IM 03/25/21 09:00 03/25/21 09:01 DC 03/25/21 11:05 Gabapentin (Neurontin) 100 mg TID PO 03/24/21 21:00 03/26/21 11:42 DC 03/26/21 08:24 Gabapentin (Neurontin) 200 mg TID PO 03/26/21 14:00 03/29/21 16:00 DC 03/29/21 13:10 Valproic Acid (Depakene) 250 mg BID PO 03/29/21 21:00 04/02/21 10:15 DC 04/02/21 08:26 Valproic Acid (Depakene) 500 mg BID PO 04/02/21 21:00 04/23/21 20:18 Nystatin (Nystop) 1 belinda BID TP 04/03/21 21:00 04/23/21 20:18 Vitamin A/Vitamin D (Vitamin A & D Ointment) 1 belinda PRN Q1HR PRN TP SKIN PROTECTION 04/03/21 16:45 04/07/21 05:54 Quetiapine Fumarate (SEROquel) 12.5 mg 0900,1300,1700 PO 04/06/21 09:00 04/09/21 01:06 DC 04/08/21 17:03 Quetiapine Fumarate (SEROquel) 12.5 mg QID@0900,1200,1500,1700 PO 04/09/21 09:00 04/23/21 17:24 Phenytoin Sodium (Dilantin) 300 mg 1700 PO 04/12/21 17:00 04/23/21 17:23 Potassium Chloride (Klor-Con) 20 meq 0800,1700 PO 04/12/21 17:00 04/23/21 17:24 Polyethylene Glycol (miraLAX) 17 gm PRN DAILY PRN PO 1ST CHOICE CONSTIPATION 04/12/21 16:45 Sertraline HCl (Zoloft) 100 mg DAILY PO 04/19/21 09:00 04/23/21 08:07 Benzocaine (Ora-Jel Maximum) 1 belinda PRN QID PRN TP ORAL PAIN 04/20/21 12:45 04/24/21 21:00 04/20/21 14:55 Docusate Sodium (Colace Solution) 100 mg 1X ONCE PO 04/20/21 12:45 04/20/21 12:57 DC Psyllium Hydrophilic Mucilloid (Metamucil) 1 pkt DAILY PO 04/21/21 09:00 Levofloxacin (Levaquin) 250 mg DAILY06 PO 04/22/21 12:30 04/22/21 12:23 DC Levofloxacin (Levaquin) 250 mg DAILY06 PO 04/23/21 06:00 04/28/21 05:59 04/23/21 05:54 Current Medications Medications (Trade) Dose Ordered Sig/Kassidy Route PRN Reason Start Time Stop Time Status Last Admin Dose Admin Levofloxacin (Levaquin) 250 mg DAILY06 PO 04/23/21 06:00 04/28/21 05:59 04/23/21 05:54 I have reviewed the current psychotropics carefully including drug interactions. Risk benefit ratio favors no change other than as noted in my dictated progress note. Diagnosis: Problems: (1) Major depressive disorder with psychotic features (2) Intellectual disability (3) Anxiety disorder, unspecified (4) Impulse control disorder, unspecified GAMALIEL MALLOY MD Apr 23, 2021 22:31
--- NOTE | 2021-04-23 23:15 | NUR ---
Patient is in her bed on assumption of care, awake in bed. She is mostly quiet, yelling out intermittently. Resistive to medications, had to be given SL with staff assist of 2. Irritable and resistive with cares. Patient left open to air and positioned on her side with wedge pillow, turn Q2H. Patient appears to be sleeping comfortably at present time. Will continue to monitor.
[2021-04-24] MEDS: LEVOTHYROXINE 50 MCG TABLET PO SCH (06:01)
[2021-04-24] MEDS: levoFLOXacin 250 MG TABLET PO SCH (06:01)
[2021-04-24 06:04] VITALS: BP 122/71
[2021-04-24] MEDS: POTASSIUM CHLORIDE 20 MEQ TABLET.ER. PO SCH ×2 (08:00→17:00)
--- NOTE | 2021-04-24 08:37 | PDOC ---
Exam Note: Brooks Note: This note is a late entry for 04/22/2021 covers elements not covered in my initial note. Subjective: The patient was seen individually in the evening of 04/22/2021 with Marylin NEWMAN, discussed and reviewed the chart. The patient slept 7-1/4 hours previous night. She remains confused, yelling at times. Meds had to be syringed. She does have UTI, started on antibiotics. Review of Systems: Ambulation impaired in wheelchair. No CV, , pulmonary, eye, ENT system symptoms on review. Reliability poor. Mental Status Exam: The patient is oriented to herself. Insight and judgment, recent and remote memory, attention and concentration, fund of knowledge is poor consistent with her diagnoses. Laboratory Data: Reviewed. Impression: Major depressive disorder with psychotic features. Anxiety disorder unspecified. Impulse control disorder unspecified. Intellectual disability. Plan: Continue current psychotropics unchanged for now. Treat the UTI since this could be worsening her mood lability, agitation. Continue rest of the psychotropics unchanged. Assessment: Vital Signs/I&O: Vital Signs Date Time Temp Pulse Resp B/P (MAP) Pulse Ox O2 Delivery O2 Flow Rate FiO2 04/24/21 06:04 97.4 83 18 122/71 (88) 99 04/23/21 08:45 Room Air I & O 04/23/21 04/23/21 04/24/21 15:00 23:00 07:00 Intake Total 360 ml 120 ml Balance 360 ml 120 ml Current Medications: Meds: Current Medications Medications (Trade) Dose Ordered Sig/Kassidy Route PRN Reason Start Time Stop Time Status Last Admin Dose Admin Acetaminophen (Tylenol) 650 mg PRN Q6HRS PRN PO MILD PAIN / TEMP > 100.3'F 03/16/21 15:45 03/30/21 15:04 Multi-Ingredient Ointment (Analgesic [place]) 1 belinda PRN QID PRN TP MUSCLE PAIN 03/16/21 15:45 Al Hydroxide/Mg Hydroxide (Mylanta Plus Xs) 15 ml PRN AFTMEALHC PRN PO DYSPEPSIA 03/16/21 15:45 Magnesium Hydroxide (Milk Of Magnesia) 2,400 mg PRN QHS PRN PO 2ND CHOICE CONSTIPATION 03/16/21 15:45 Acetaminophen (Tylenol) 650 mg PRN Q6HRS PRN PO pain or fever 03/16/21 16:00 UNV Aspirin (Aspirin Chewable) 81 mg DAILY PO 03/17/21 09:00 04/23/21 08:08 Levothyroxine Sodium (Synthroid) 50 mcg DAILY06 PO 03/17/21 06:00 04/24/21 06:01 Al Hydroxide/Mg Hydroxide (Mylanta Plus Xs) 15 ml PRN AFTMEALHC PRN PO DYSPEPSIA 03/16/21 16:00 UNV Magnesium Hydroxide (Milk Of Magnesia) 2,400 mg PRN QHS PRN PO CONSTIPATION 03/16/21 16:00 UNV Metolazone (Zaroxolyn) 5 mg QMWF@0900 PO 03/18/21 09:00 04/22/21 08:51 Mirtazapine (Remeron) 7.5 mg QHS PO 03/16/21 21:00 04/23/21 20:19 Phenytoin Sodium (Dilantin) 300 mg QHS PO 03/16/21 21:00 04/12/21 11:07 DC 04/11/21 21:03 Potassium Chloride (Klor-Con) 20 meq BID PO 03/16/21 21:00 04/12/21 11:07 DC 04/12/21 09:11 Sennosides (Senna) 8.6 mg BID PO 03/16/21 21:00 04/20/21 12:46 DC 04/18/21 07:58 Non-Formulary Medication (Methyl Salicylate/ Menthol (Analgesic [place])) 1 belinda PRN QID PRN TP MUSCLE PAIN 03/16/21 16:00 UNV Multivitamins/ Calcium (Thera-M Plus) 1 tab DAILY PO 03/17/21 09:00 04/23/21 08:07 Polyethylene Glycol (miraLAX) 17 gm DAILY PO 03/17/21 09:00 04/12/21 16:42 DC 04/10/21 08:18 Vitamin D (Vitamin D3) 50,000 unit WEEKLY PO 03/23/21 09:00 04/20/21 08:25 Cetirizine HCl (ZyrTEC) 10 mg DAILY PO 03/17/21 09:00 04/23/21 08:07 Sertraline HCl (Zoloft) 50 mg DAILY PO 03/17/21 09:00 03/18/21 18:34 DC 03/18/21 08:31 Denosumab (Prolia) 60 mg QMONTH SQ 04/15/21 09:00 UNV Phenytoin Sodium (Dilantin) 100 mg BID92 PO 03/17/21 09:00 Cancel Tramadol HCl (Ultram) 50 mg PRN BID PRN PO MOD-SEV PAIN 03/16/21 16:15 04/23/21 08:06 Trazodone HCl (Desyrel) 50 mg QHS PO 03/16/21 21:00 04/23/21 20:19 Ascorbic Acid (Vitamin C) 1,000 mg DAILY PO 03/17/21 09:00 04/23/21 08:07 Melatonin (Melatonin) 6 mg HS PO 03/16/21 21:00 04/23/21 20:18 Zinc Sulfate (Orazinc) 220 mg DAILY PO 03/17/21 09:00 04/23/21 08:07 Sertraline HCl (Zoloft) 75 mg DAILY PO 03/19/21 09:00 04/18/21 18:15 DC 04/18/21 07:59 Olanzapine (ZyPREXA ZYDIS) 2.5 mg PRN Q2HR PRN PO PSYCHOSIS 03/19/21 20:15 04/07/21 15:55 Influenza Virus Vaccine Quadrival (Flulaval Quad [id number] Syringe) 0.5 ml ONCE ONCE VAX IM 03/25/21 09:00 03/25/21 09:01 DC 03/25/21 11:05 Gabapentin (Neurontin) 100 mg TID PO 03/24/21 21:00 03/26/21 11:42 DC 03/26/21 08:24 Gabapentin (Neurontin) 200 mg TID PO 03/26/21 14:00 03/29/21 16:00 DC 03/29/21 13:10 Valproic Acid (Depakene) 250 mg BID PO 03/29/21 21:00 04/02/21 10:15 DC 04/02/21 08:26 Valproic Acid (Depakene) 500 mg BID PO 04/02/21 21:00 04/23/21 20:18 Nystatin (Nystop) 1 belinda BID TP 04/03/21 21:00 04/23/21 20:18 Vitamin A/Vitamin D (Vitamin A & D Ointment) 1 belinda PRN Q1HR PRN TP SKIN PROTECTION 04/03/21 16:45 04/07/21 05:54 Quetiapine Fumarate (SEROquel) 12.5 mg 0900,1300,1700 PO 04/06/21 09:00 04/09/21 01:06 DC 04/08/21 17:03 Quetiapine Fumarate (SEROquel) 12.5 mg QID@0900,1200,1500,1700 PO 04/09/21 09:00 04/23/21 17:24 Phenytoin Sodium (Dilantin) 300 mg 1700 PO 04/12/21 17:00 04/23/21 17:23 Potassium Chloride (Klor-Con) 20 meq 0800,1700 PO 04/12/21 17:00 04/23/21 17:24 Polyethylene Glycol (miraLAX) 17 gm PRN DAILY PRN PO 1ST CHOICE CONSTIPATION 04/12/21 16:45 Sertraline HCl (Zoloft) 100 mg DAILY PO 04/19/21 09:00 04/23/21 08:07 Benzocaine (Ora-Jel Maximum) 1 belinda PRN QID PRN TP ORAL PAIN 04/20/21 12:45 04/24/21 21:00 04/20/21 14:55 Docusate Sodium (Colace Solution) 100 mg 1X ONCE PO 04/20/21 12:45 04/20/21 12:57 DC Psyllium Hydrophilic Mucilloid (Metamucil) 1 pkt DAILY PO 04/21/21 09:00 Levofloxacin (Levaquin) 250 mg DAILY06 PO 04/22/21 12:30 04/22/21 12:23 DC Levofloxacin (Levaquin) 250 mg DAILY06 PO 04/23/21 06:00 04/28/21 05:59 04/24/21 06:01 I have reviewed the current psychotropics carefully including drug interactions. Risk benefit ratio favors no change other than as noted in my dictated progress note. Diagnosis: Problems: (1) Major depressive disorder with psychotic features (2) Intellectual disability (3) Impulse control disorder, unspecified (4) Anxiety disorder, unspecified GAMALIEL MALLOY MD Apr 24, 2021 08:37
[2021-04-24] MEDS: ASCORBIC ACID 500 MG TABLET PO SCH (09:00)
[2021-04-24] MEDS: PSYLLIUM SEED (WITH SUGAR) PACKET. PO SCH (09:00)
[2021-04-24] MEDS: CETIRIZINE HCL 10 MG TABLET PO SCH (09:00)
[2021-04-24] MEDS: MULTIVITAMIN with MINERAL TABLET. PO SCH (09:00)
[2021-04-24] MEDS: metOLazone 5 MG TABLET PO SCH (09:00)
[2021-04-24] MEDS: ZINC SULFATE 220 MG CAPSULE. PO SCH (09:00)
[2021-04-24] MEDS: ASPIRIN CHEWABLE 81 MG TABLET. PO SCH (09:00)
[2021-04-24] MEDS: NYSTATIN TOPICAL POWDER 15GM BOTTLE. TP SCH ×2 (09:00→20:09)
[2021-04-24] MEDS: QUEtiapine 25 MG TABLET. PO SCH ×4 (09:59→17:21)
[2021-04-24] MEDS: SERTRALINE 100 MG TABLET. PO SCH (09:59)
[2021-04-24] MEDS: VALPROATE ACID 250 MG/5 ML ORAL SOLUTION PO SCH ×2 (09:59→20:11)
[2021-04-24] MEDS: traMADol 50 MG TABLET PO PRN (10:04)
--- NOTE | 2021-04-24 10:36 | NUR ---
Weekly Note: Pt has been eating approximately 25% of her meals, possibly caused by teeth hurting. She is averaging 7.4 hours of sleep per night. Pt has developed a UTI and has just been started on Levaquin. Also, pt has developed a wound to her right buttock. This is being addressed by medical staff. Pt continues to groan and yell out. Pt is sometimes resistive with cares and taking her medications; most likely this is due to some pain she is experiencing or her medications tasting bad when they are crushed and put in a drink. As pt has a developmental disability staff struggle to understand what she tries to communicate to them and then she will at times present as combative. Pt seems to be taking several supplements, so this will be looked at to see which ones are needed and which ones may possibly be discontinued. Pt will return to [facility] at time of discharge. FIORDALIZA has spoke with pt sister/DPOA, Fariba to provide update. Fariba appreciative of information. FIORDALIZA also spoke with Monica at [facility] for update and indicated that pt may be ready for discharge early next week. FIORDALIZA will follow up with Monica on Tuesday.
[2021-04-24 15:53] VITALS: BP 117/55
[2021-04-24] MEDS: PHENYTOIN SODIUM EXTENDED 100 MG CAPSULE PO SCH (17:26)
--- NOTE | 2021-04-24 18:30 | NUR ---
Patient has been resistive to medications, combative with cares, repeatedly calling out, and withdrawn throughout this shift. She was hitting at staff during cares and when staff attempted to provide medications. Will continue to monitor and report to oncoming shift.
[2021-04-24] MEDS: MIRTAZAPINE 7.5 MG TABLET. PO SCH (20:10)
[2021-04-24] MEDS: MELATONIN 3 MG TABLET PO SCH (20:10)
[2021-04-24] MEDS: traZODone 50 MG TABLET. PO SCH (20:10)
[2021-04-24] MEDS: LACTOBACILLUS RHAMNOSUS GG 1 CAPSULE. PO SCH (20:11)
--- NOTE | 2021-04-24 21:45 | PDOC ---
Exam Note: Brooks Note: Please also refer to the separate dictated note~for this date of service dictated separately.~Patient seen individually. Discussed the patient with Nursing staff reviewed the chart.~Reviewed interim history and current functioning. Reviewed vital signs,~Labs/ Radiology~and current medications noted below. Continue current treatment with the changes noted in the dictated addendum note Assessment: Vital Signs/I&O: Vital Signs Date Time Temp Pulse Resp B/P (MAP) Pulse Ox O2 Delivery O2 Flow Rate FiO2 04/24/21 15:53 98.1 81 20 117/55 (75) 95 04/24/21 10:04 Room Air I & O 04/23/21 04/23/21 04/24/21 15:00 23:00 07:00 Intake Total 360 ml 120 ml Balance 360 ml 120 ml Current Medications: Meds: Current Medications Medications (Trade) Dose Ordered Sig/Kassidy Route PRN Reason Start Time Stop Time Status Last Admin Dose Admin Acetaminophen (Tylenol) 650 mg PRN Q6HRS PRN PO MILD PAIN / TEMP > 100.3'F 03/16/21 15:45 03/30/21 15:04 Multi-Ingredient Ointment (Analgesic [place]) 1 belinda PRN QID PRN TP MUSCLE PAIN 03/16/21 15:45 Al Hydroxide/Mg Hydroxide (Mylanta Plus Xs) 15 ml PRN AFTMEALHC PRN PO DYSPEPSIA 03/16/21 15:45 Magnesium Hydroxide (Milk Of Magnesia) 2,400 mg PRN QHS PRN PO 2ND CHOICE CONSTIPATION 03/16/21 15:45 Acetaminophen (Tylenol) 650 mg PRN Q6HRS PRN PO pain or fever 03/16/21 16:00 UNV Aspirin (Aspirin Chewable) 81 mg DAILY PO 03/17/21 09:00 04/23/21 08:08 Levothyroxine Sodium (Synthroid) 50 mcg DAILY06 PO 03/17/21 06:00 04/24/21 06:01 Al Hydroxide/Mg Hydroxide (Mylanta Plus Xs) 15 ml PRN AFTMEALHC PRN PO DYSPEPSIA 03/16/21 16:00 UNV Magnesium Hydroxide (Milk Of Magnesia) 2,400 mg PRN QHS PRN PO CONSTIPATION 03/16/21 16:00 UNV Metolazone (Zaroxolyn) 5 mg QMWF@0900 PO 03/18/21 09:00 04/22/21 08:51 Mirtazapine (Remeron) 7.5 mg QHS PO 03/16/21 21:00 04/24/21 20:10 Phenytoin Sodium (Dilantin) 300 mg QHS PO 03/16/21 21:00 04/12/21 11:07 DC 04/11/21 21:03 Potassium Chloride (Klor-Con) 20 meq BID PO 03/16/21 21:00 04/12/21 11:07 DC 04/12/21 09:11 Sennosides (Senna) 8.6 mg BID PO 03/16/21 21:00 04/20/21 12:46 DC 04/18/21 07:58 Non-Formulary Medication (Methyl Salicylate/ Menthol (Analgesic [place])) 1 belinda PRN QID PRN TP MUSCLE PAIN 03/16/21 16:00 UNV Multivitamins/ Calcium (Thera-M Plus) 1 tab DAILY PO 03/17/21 09:00 04/23/21 08:07 Polyethylene Glycol (miraLAX) 17 gm DAILY PO 03/17/21 09:00 04/12/21 16:42 DC 04/10/21 08:18 Vitamin D (Vitamin D3) 50,000 unit WEEKLY PO 03/23/21 09:00 04/20/21 08:25 Cetirizine HCl (ZyrTEC) 10 mg DAILY PO 03/17/21 09:00 04/23/21 08:07 Sertraline HCl (Zoloft) 50 mg DAILY PO 03/17/21 09:00 03/18/21 18:34 DC 03/18/21 08:31 Denosumab (Prolia) 60 mg QMONTH SQ 04/15/21 09:00 UNV Phenytoin Sodium (Dilantin) 100 mg BID92 PO 03/17/21 09:00 Cancel Tramadol HCl (Ultram) 50 mg PRN BID PRN PO MOD-SEV PAIN 03/16/21 16:15 04/24/21 10:04 Trazodone HCl (Desyrel) 50 mg QHS PO 03/16/21 21:00 04/24/21 20:10 Ascorbic Acid (Vitamin C) 1,000 mg DAILY PO 03/17/21 09:00 04/23/21 08:07 Melatonin (Melatonin) 6 mg HS PO 03/16/21 21:00 04/24/21 20:10 Zinc Sulfate (Orazinc) 220 mg DAILY PO 03/17/21 09:00 04/23/21 08:07 Sertraline HCl (Zoloft) 75 mg DAILY PO 03/19/21 09:00 04/18/21 18:15 DC 04/18/21 07:59 Olanzapine (ZyPREXA ZYDIS) 2.5 mg PRN Q2HR PRN PO PSYCHOSIS 03/19/21 20:15 04/07/21 15:55 Influenza Virus Vaccine Quadrival (Flulaval Quad [id number] Syringe) 0.5 ml ONCE ONCE VAX IM 03/25/21 09:00 03/25/21 09:01 DC 03/25/21 11:05 Gabapentin (Neurontin) 100 mg TID PO 03/24/21 21:00 03/26/21 11:42 DC 03/26/21 08:24 Gabapentin (Neurontin) 200 mg TID PO 03/26/21 14:00 03/29/21 16:00 DC 03/29/21 13:10 Valproic Acid (Depakene) 250 mg BID PO 03/29/21 21:00 04/02/21 10:15 DC 04/02/21 08:26 Valproic Acid (Depakene) 500 mg BID PO 04/02/21 21:00 04/24/21 20:11 Nystatin (Nystop) 1 belinda BID TP 04/03/21 21:00 04/24/21 20:09 Vitamin A/Vitamin D (Vitamin A & D Ointment) 1 belinda PRN Q1HR PRN TP SKIN PROTECTION 04/03/21 16:45 04/07/21 05:54 Quetiapine Fumarate (SEROquel) 12.5 mg 0900,1300,1700 PO 04/06/21 09:00 04/09/21 01:06 DC 04/08/21 17:03 Quetiapine Fumarate (SEROquel) 12.5 mg QID@0900,1200,1500,1700 PO 04/09/21 09:00 04/24/21 20:55 DC 04/24/21 17:21 Phenytoin Sodium (Dilantin) 300 mg 1700 PO 04/12/21 17:00 04/24/21 17:26 Potassium Chloride (Klor-Con) 20 meq 0800,1700 PO 04/12/21 17:00 04/23/21 17:24 Polyethylene Glycol (miraLAX) 17 gm PRN DAILY PRN PO 1ST CHOICE CONSTIPATION 04/12/21 16:45 Sertraline HCl (Zoloft) 100 mg DAILY PO 04/19/21 09:00 04/24/21 09:59 Benzocaine (Ora-Jel Maximum) 1 belinda PRN QID PRN TP ORAL PAIN 04/20/21 12:45 04/24/21 21:00 DC 04/20/21 14:55 Docusate Sodium (Colace Solution) 100 mg 1X ONCE PO 04/20/21 12:45 04/20/21 12:57 DC Psyllium Hydrophilic Mucilloid (Metamucil) 1 pkt DAILY PO 04/21/21 09:00 Levofloxacin (Levaquin) 250 mg DAILY06 PO 04/22/21 12:30 04/22/21 12:23 DC Levofloxacin (Levaquin) 250 mg DAILY06 PO 04/23/21 06:00 04/28/21 05:59 04/24/21 06:01 Lactobacillus Rhamnosus (Culturelle) 1 cap BID PO 04/24/21 21:00 04/24/21 20:11 Quetiapine Fumarate (SEROquel) 25 mg DAILY PO 04/25/21 09:00 Quetiapine Fumarate (SEROquel) 25 mg 1700 PO 04/25/21 17:00 Current Medications Medications (Trade) Dose Ordered Sig/Kassidy Route PRN Reason Start Time Stop Time Status Last Admin Dose Admin Lactobacillus Rhamnosus (Culturelle) 1 cap BID PO 04/24/21 21:00 04/24/21 20:11 I have reviewed the current psychotropics carefully including drug interactions. Risk benefit ratio favors no change other than as noted in my dictated progress note. Diagnosis: Problems: (1) Major depressive disorder with psychotic features (2) Intellectual disability (3) Impulse control disorder, unspecified (4) Anxiety disorder, unspecified GAMALIEL MALLOY MD Apr 24, 2021 21:45
--- NOTE | 2021-04-25 02:00 | NUR ---
Pt has been in bed this shift she is resistive to cares and tries to hit staff. She refused joseph aso they were syringed which she tolerated well. When awake she frequently calls out and rarely speaks.
[2021-04-25] MEDS: levoFLOXacin 250 MG TABLET PO SCH (05:29)
[2021-04-25] MEDS: LEVOTHYROXINE 50 MCG TABLET PO SCH (05:29)
[2021-04-25 06:05] VITALS: BP 133/87
[2021-04-25] MEDS: POTASSIUM CHLORIDE 20 MEQ TABLET.ER. PO SCH ×2 (08:00→17:09)
[2021-04-25] MEDS: ASCORBIC ACID 500 MG TABLET PO SCH (09:00)
[2021-04-25] MEDS: PSYLLIUM SEED (WITH SUGAR) PACKET. PO SCH (09:00)
[2021-04-25] MEDS: MULTIVITAMIN with MINERAL TABLET. PO SCH (09:00)
[2021-04-25] MEDS: ASPIRIN CHEWABLE 81 MG TABLET. PO SCH (09:00)
[2021-04-25] MEDS: CETIRIZINE HCL 10 MG TABLET PO SCH (09:00)
[2021-04-25] MEDS: NYSTATIN TOPICAL POWDER 15GM BOTTLE. TP SCH ×2 (09:00→20:14)
[2021-04-25] MEDS: ZINC SULFATE 220 MG CAPSULE. PO SCH (09:00)
[2021-04-25] MEDS: LACTOBACILLUS RHAMNOSUS GG 1 CAPSULE. PO SCH ×2 (09:00→20:14)
[2021-04-25] MEDS: SERTRALINE 100 MG TABLET. PO SCH (09:06)
[2021-04-25] MEDS: VALPROATE ACID 250 MG/5 ML ORAL SOLUTION PO SCH ×2 (09:07→20:15)
[2021-04-25] MEDS: QUEtiapine 25 MG TABLET. PO SCH ×2 (09:07→17:08)
[2021-04-25 15:16] VITALS: BP 125/84
[2021-04-25] MEDS: PHENYTOIN SODIUM EXTENDED 100 MG CAPSULE PO SCH (17:09)
--- NOTE | 2021-04-25 18:30 | NUR ---
Patient has been resistive to medications, combative with cares, repeatedly calling out, and attention seeking throughout this shift. She was hitting at staff during cares and when staff attempted to provide medications. Will continue to monitor and report to oncoming shift.
[2021-04-25] MEDS: MELATONIN 3 MG TABLET PO SCH (20:13)
[2021-04-25] MEDS: traZODone 50 MG TABLET. PO SCH (20:13)
[2021-04-25] MEDS: MIRTAZAPINE 7.5 MG TABLET. PO SCH (20:14)
--- NOTE | 2021-04-25 22:10 | PDOC ---
Exam Note: Brooks Note: Please also refer to the separate dictated note~for this date of service dictated separately.~Patient seen individually. Discussed the patient with Nursing staff reviewed the chart.~Reviewed interim history and current functioning. Reviewed vital signs,~Labs/ Radiology~and current medications noted below. Continue current treatment with the changes noted in the dictated addendum note Assessment: Vital Signs/I&O: Vital Signs Date Time Temp Pulse Resp B/P (MAP) Pulse Ox O2 Delivery O2 Flow Rate FiO2 04/25/21 15:16 98.8 76 20 125/84 (98) 94 04/24/21 10:04 Room Air I & O 04/24/21 04/24/21 04/25/21 15:00 23:00 07:00 Intake Total 360 ml 240 ml Balance 360 ml 240 ml Current Medications: Meds: Current Medications Medications (Trade) Dose Ordered Sig/Kassidy Route PRN Reason Start Time Stop Time Status Last Admin Dose Admin Acetaminophen (Tylenol) 650 mg PRN Q6HRS PRN PO MILD PAIN / TEMP > 100.3'F 03/16/21 15:45 03/30/21 15:04 Multi-Ingredient Ointment (Analgesic [place]) 1 belinda PRN QID PRN TP MUSCLE PAIN 03/16/21 15:45 Al Hydroxide/Mg Hydroxide (Mylanta Plus Xs) 15 ml PRN AFTMEALHC PRN PO DYSPEPSIA 03/16/21 15:45 Magnesium Hydroxide (Milk Of Magnesia) 2,400 mg PRN QHS PRN PO 2ND CHOICE CONSTIPATION 03/16/21 15:45 Acetaminophen (Tylenol) 650 mg PRN Q6HRS PRN PO pain or fever 03/16/21 16:00 UNV Aspirin (Aspirin Chewable) 81 mg DAILY PO 03/17/21 09:00 04/23/21 08:08 Levothyroxine Sodium (Synthroid) 50 mcg DAILY06 PO 03/17/21 06:00 04/25/21 05:29 Al Hydroxide/Mg Hydroxide (Mylanta Plus Xs) 15 ml PRN AFTMEALHC PRN PO DYSPEPSIA 03/16/21 16:00 UNV Magnesium Hydroxide (Milk Of Magnesia) 2,400 mg PRN QHS PRN PO CONSTIPATION 03/16/21 16:00 UNV Metolazone (Zaroxolyn) 5 mg QMWF@0900 PO 03/18/21 09:00 04/22/21 08:51 Mirtazapine (Remeron) 7.5 mg QHS PO 03/16/21 21:00 04/25/21 20:14 Phenytoin Sodium (Dilantin) 300 mg QHS PO 03/16/21 21:00 04/12/21 11:07 DC 04/11/21 21:03 Potassium Chloride (Klor-Con) 20 meq BID PO 03/16/21 21:00 04/12/21 11:07 DC 04/12/21 09:11 Sennosides (Senna) 8.6 mg BID PO 03/16/21 21:00 04/20/21 12:46 DC 04/18/21 07:58 Non-Formulary Medication (Methyl Salicylate/ Menthol (Analgesic [place])) 1 belinda PRN QID PRN TP MUSCLE PAIN 03/16/21 16:00 UNV Multivitamins/ Calcium (Thera-M Plus) 1 tab DAILY PO 03/17/21 09:00 04/23/21 08:07 Polyethylene Glycol (miraLAX) 17 gm DAILY PO 03/17/21 09:00 04/12/21 16:42 DC 04/10/21 08:18 Vitamin D (Vitamin D3) 50,000 unit WEEKLY PO 03/23/21 09:00 04/20/21 08:25 Cetirizine HCl (ZyrTEC) 10 mg DAILY PO 03/17/21 09:00 04/23/21 08:07 Sertraline HCl (Zoloft) 50 mg DAILY PO 03/17/21 09:00 03/18/21 18:34 DC 03/18/21 08:31 Denosumab (Prolia) 60 mg QMONTH SQ 04/15/21 09:00 UNV Phenytoin Sodium (Dilantin) 100 mg BID92 PO 03/17/21 09:00 Cancel Tramadol HCl (Ultram) 50 mg PRN BID PRN PO MOD-SEV PAIN 03/16/21 16:15 04/24/21 10:04 Trazodone HCl (Desyrel) 50 mg QHS PO 03/16/21 21:00 04/25/21 20:13 Ascorbic Acid (Vitamin C) 1,000 mg DAILY PO 03/17/21 09:00 04/23/21 08:07 Melatonin (Melatonin) 6 mg HS PO 03/16/21 21:00 04/25/21 20:13 Zinc Sulfate (Orazinc) 220 mg DAILY PO 03/17/21 09:00 04/23/21 08:07 Sertraline HCl (Zoloft) 75 mg DAILY PO 03/19/21 09:00 04/18/21 18:15 DC 04/18/21 07:59 Olanzapine (ZyPREXA ZYDIS) 2.5 mg PRN Q2HR PRN PO PSYCHOSIS 03/19/21 20:15 04/07/21 15:55 Influenza Virus Vaccine Quadrival (Flulaval Quad [id number] Syringe) 0.5 ml ONCE ONCE VAX IM 03/25/21 09:00 03/25/21 09:01 DC 03/25/21 11:05 Gabapentin (Neurontin) 100 mg TID PO 03/24/21 21:00 03/26/21 11:42 DC 03/26/21 08:24 Gabapentin (Neurontin) 200 mg TID PO 03/26/21 14:00 03/29/21 16:00 DC 03/29/21 13:10 Valproic Acid (Depakene) 250 mg BID PO 03/29/21 21:00 04/02/21 10:15 DC 04/02/21 08:26 Valproic Acid (Depakene) 500 mg BID PO 04/02/21 21:00 04/25/21 20:15 Nystatin (Nystop) 1 belinda BID TP 04/03/21 21:00 04/25/21 20:14 Vitamin A/Vitamin D (Vitamin A & D Ointment) 1 belinda PRN Q1HR PRN TP SKIN PROTECTION 04/03/21 16:45 04/07/21 05:54 Quetiapine Fumarate (SEROquel) 12.5 mg 0900,1300,1700 PO 04/06/21 09:00 04/09/21 01:06 DC 04/08/21 17:03 Quetiapine Fumarate (SEROquel) 12.5 mg QID@0900,1200,1500,1700 PO 04/09/21 09:00 04/24/21 20:55 DC 04/24/21 17:21 Phenytoin Sodium (Dilantin) 300 mg 1700 PO 04/12/21 17:00 04/25/21 17:09 Potassium Chloride (Klor-Con) 20 meq 0800,1700 PO 04/12/21 17:00 04/23/21 17:24 Polyethylene Glycol (miraLAX) 17 gm PRN DAILY PRN PO 1ST CHOICE CONSTIPATION 04/12/21 16:45 Sertraline HCl (Zoloft) 100 mg DAILY PO 04/19/21 09:00 04/25/21 09:06 Benzocaine (Ora-Jel Maximum) 1 belinda PRN QID PRN TP ORAL PAIN 04/20/21 12:45 04/24/21 21:00 DC 04/20/21 14:55 Docusate Sodium (Colace Solution) 100 mg 1X ONCE PO 04/20/21 12:45 04/20/21 12:57 DC Psyllium Hydrophilic Mucilloid (Metamucil) 1 pkt DAILY PO 04/21/21 09:00 Levofloxacin (Levaquin) 250 mg DAILY06 PO 04/22/21 12:30 04/22/21 12:23 DC Levofloxacin (Levaquin) 250 mg DAILY06 PO 04/23/21 06:00 04/28/21 05:59 04/25/21 05:29 Lactobacillus Rhamnosus (Culturelle) 1 cap BID PO 04/24/21 21:00 04/25/21 20:14 Quetiapine Fumarate (SEROquel) 25 mg DAILY PO 04/25/21 09:00 04/25/21 09:07 Quetiapine Fumarate (SEROquel) 25 mg 1700 PO 04/25/21 17:00 04/25/21 17:08 Current Medications Medications (Trade) Dose Ordered Sig/Kassidy Route PRN Reason Start Time Stop Time Status Last Admin Dose Admin Quetiapine Fumarate (SEROquel) 25 mg DAILY PO 04/25/21 09:00 04/25/21 09:07 Quetiapine Fumarate (SEROquel) 25 mg 1700 PO 04/25/21 17:00 04/25/21 17:08 I have reviewed the current psychotropics carefully including drug interactions. Risk benefit ratio favors no change other than as noted in my dictated progress note. Diagnosis: Problems: (1) Major depressive disorder with psychotic features (2) Intellectual disability (3) Anxiety disorder, unspecified (4) Impulse control disorder, unspecified GAMALIEL MALLOY MD Apr 25, 2021 22:10
--- NOTE | 2021-04-25 23:53 | NUR ---
Pt located in her room lying in bed. Pt yelling out intermittently. Refused HS medications, swinging at staff. Medications syringed with resistance. Pt continues to yell out on/off throughout the night.
[2021-04-26] MEDS: LEVOTHYROXINE 50 MCG TABLET PO SCH (05:25)
[2021-04-26] MEDS: levoFLOXacin 250 MG TABLET PO SCH ×2 (05:25→08:43)
[2021-04-26 05:51] VITALS: BP 134/77
[2021-04-26] MEDS: QUEtiapine 25 MG TABLET. PO SCH ×2 (08:43→17:15)
[2021-04-26] MEDS: LACTOBACILLUS RHAMNOSUS GG 1 CAPSULE. PO SCH ×2 (08:43→20:43)
[2021-04-26] MEDS: MULTIVITAMIN with MINERAL TABLET. PO SCH (08:43)
[2021-04-26] MEDS: SERTRALINE 100 MG TABLET. PO SCH (08:43)
[2021-04-26] MEDS: POTASSIUM CHLORIDE 20 MEQ TABLET.ER. PO SCH ×2 (08:43→17:15)
[2021-04-26] MEDS: CETIRIZINE HCL 10 MG TABLET PO SCH (08:43)
[2021-04-26] MEDS: ASCORBIC ACID 500 MG TABLET PO SCH (08:43)
[2021-04-26] MEDS: ZINC SULFATE 220 MG CAPSULE. PO SCH (08:43)
[2021-04-26] MEDS: VALPROATE ACID 250 MG/5 ML ORAL SOLUTION PO SCH ×2 (08:43→20:43)
[2021-04-26] MEDS: ASPIRIN CHEWABLE 81 MG TABLET. PO SCH (08:43)
[2021-04-26] MEDS: NYSTATIN TOPICAL POWDER 15GM BOTTLE. TP SCH ×2 (08:44→20:44)
[2021-04-26] MEDS: PSYLLIUM SEED (WITH SUGAR) PACKET. PO SCH (08:44)
--- NOTE | 2021-04-26 08:45 | PDOC ---
Exam Note: Brooks Note: This note is a late entry for 04/23/2021 covers elements not covered in my initial note. Subjective: The patient was reviewed at treatment team meeting individually in the morning on 04/23/2021 with Iman NEWMAN, Slot Floorperson, Kacy Henry, Angela Ochoa, and Katty Encarnacion (social worker aide), Radha, activity therapy and Sunday NEWMNA, discussed and reviewed the chart. The patient slept 7 hours previous night. Average sleep 4 hours. Appetite is 25%. She has been in bed due to breakdown in her coccygeal area. We will defer to Dr. Diaz. She takes medications crushed in [place]. She ate for lunch, poorly for breakfast. She is being treated for UTI on Levaquin. Also discussed with TRENT Guaman in the evening. Patient remains withdrawn, anxious, loud, disruptive and obsessive. Review of Systems: Ambulation impaired in wheelchair. No CV, , pulmonary, eye, ENT system symptoms on review. Reliability poor. Mental Status Exam: The patient is oriented to herself. Insight and judgment, recent and remote memory, attention and concentration, fund of knowledge is poor consistent with her diagnoses. Laboratory Data: Reviewed. Impression: Major depressive disorder with psychotic features. Anxiety disorder unspecified. Impulse control disorder unspecified. Intellectual disability. Plan: Continue current psychotropics unchanged for now. Assessment: Vital Signs/I&O: Vital Signs Date Time Temp Pulse Resp B/P (MAP) Pulse Ox O2 Delivery O2 Flow Rate FiO2 04/26/21 05:51 97.7 87 18 134/77 (96) 95 04/24/21 10:04 Room Air I & O 04/25/21 04/25/21 04/26/21 15:00 23:00 07:00 Intake Total 240 ml 120 ml Balance 240 ml 120 ml Current Medications: Meds: Current Medications Medications (Trade) Dose Ordered Sig/Kassidy Route PRN Reason Start Time Stop Time Status Last Admin Dose Admin Acetaminophen (Tylenol) 650 mg PRN Q6HRS PRN PO MILD PAIN / TEMP > 100.3'F 03/16/21 15:45 03/30/21 15:04 Multi-Ingredient Ointment (Analgesic [place]) 1 belinda PRN QID PRN TP MUSCLE PAIN 03/16/21 15:45 Al Hydroxide/Mg Hydroxide (Mylanta Plus Xs) 15 ml PRN AFTMEALHC PRN PO DYSPEPSIA 03/16/21 15:45 Magnesium Hydroxide (Milk Of Magnesia) 2,400 mg PRN QHS PRN PO 2ND CHOICE CONSTIPATION 03/16/21 15:45 Acetaminophen (Tylenol) 650 mg PRN Q6HRS PRN PO pain or fever 03/16/21 16:00 UNV Aspirin (Aspirin Chewable) 81 mg DAILY PO 03/17/21 09:00 04/26/21 08:43 Levothyroxine Sodium (Synthroid) 50 mcg DAILY06 PO 03/17/21 06:00 04/26/21 05:25 Al Hydroxide/Mg Hydroxide (Mylanta Plus Xs) 15 ml PRN AFTMEALHC PRN PO DYSPEPSIA 03/16/21 16:00 UNV Magnesium Hydroxide (Milk Of Magnesia) 2,400 mg PRN QHS PRN PO CONSTIPATION 03/16/21 16:00 UNV Metolazone (Zaroxolyn) 5 mg QMWF@0900 PO 03/18/21 09:00 04/22/21 08:51 Mirtazapine (Remeron) 7.5 mg QHS PO 03/16/21 21:00 04/25/21 20:14 Phenytoin Sodium (Dilantin) 300 mg QHS PO 03/16/21 21:00 04/12/21 11:07 DC 04/11/21 21:03 Potassium Chloride (Klor-Con) 20 meq BID PO 03/16/21 21:00 04/12/21 11:07 DC 04/12/21 09:11 Sennosides (Senna) 8.6 mg BID PO 03/16/21 21:00 04/20/21 12:46 DC 04/18/21 07:58 Non-Formulary Medication (Methyl Salicylate/ Menthol (Analgesic [place])) 1 belinda PRN QID PRN TP MUSCLE PAIN 03/16/21 16:00 UNV Multivitamins/ Calcium (Thera-M Plus) 1 tab DAILY PO 03/17/21 09:00 04/26/21 08:43 Polyethylene Glycol (miraLAX) 17 gm DAILY PO 03/17/21 09:00 04/12/21 16:42 DC 04/10/21 08:18 Vitamin D (Vitamin D3) 50,000 unit WEEKLY PO 03/23/21 09:00 04/20/21 08:25 Cetirizine HCl (ZyrTEC) 10 mg DAILY PO 03/17/21 09:00 04/26/21 08:43 Sertraline HCl (Zoloft) 50 mg DAILY PO 03/17/21 09:00 03/18/21 18:34 DC 03/18/21 08:31 Denosumab (Prolia) 60 mg QMONTH SQ 04/15/21 09:00 UNV Phenytoin Sodium (Dilantin) 100 mg BID92 PO 03/17/21 09:00 Cancel Tramadol HCl (Ultram) 50 mg PRN BID PRN PO MOD-SEV PAIN 03/16/21 16:15 04/24/21 10:04 Trazodone HCl (Desyrel) 50 mg QHS PO 03/16/21 21:00 04/25/21 20:13 Ascorbic Acid (Vitamin C) 1,000 mg DAILY PO 03/17/21 09:00 04/26/21 08:43 Melatonin (Melatonin) 6 mg HS PO 03/16/21 21:00 04/25/21 20:13 Zinc Sulfate (Orazinc) 220 mg DAILY PO 03/17/21 09:00 04/26/21 08:43 Sertraline HCl (Zoloft) 75 mg DAILY PO 03/19/21 09:00 04/18/21 18:15 DC 04/18/21 07:59 Olanzapine (ZyPREXA ZYDIS) 2.5 mg PRN Q2HR PRN PO PSYCHOSIS 03/19/21 20:15 04/07/21 15:55 Influenza Virus Vaccine Quadrival (Flulaval Quad [id number] Syringe) 0.5 ml ONCE ONCE VAX IM 03/25/21 09:00 03/25/21 09:01 DC 03/25/21 11:05 Gabapentin (Neurontin) 100 mg TID PO 03/24/21 21:00 03/26/21 11:42 DC 03/26/21 08:24 Gabapentin (Neurontin) 200 mg TID PO 03/26/21 14:00 03/29/21 16:00 DC 03/29/21 13:10 Valproic Acid (Depakene) 250 mg BID PO 03/29/21 21:00 04/02/21 10:15 DC 04/02/21 08:26 Valproic Acid (Depakene) 500 mg BID PO 04/02/21 21:00 04/26/21 08:43 Nystatin (Nystop) 1 belinda BID TP 04/03/21 21:00 04/26/21 08:44 Vitamin A/Vitamin D (Vitamin A & D Ointment) 1 belinda PRN Q1HR PRN TP SKIN PROTECTION 04/03/21 16:45 04/07/21 05:54 Quetiapine Fumarate (SEROquel) 12.5 mg 0900,1300,1700 PO 04/06/21 09:00 04/09/21 01:06 DC 04/08/21 17:03 Quetiapine Fumarate (SEROquel) 12.5 mg QID@0900,1200,1500,1700 PO 04/09/21 09:00 04/24/21 20:55 DC 04/24/21 17:21 Phenytoin Sodium (Dilantin) 300 mg 1700 PO 04/12/21 17:00 04/25/21 17:09 Potassium Chloride (Klor-Con) 20 meq 0800,1700 PO 04/12/21 17:00 04/26/21 08:43 Polyethylene Glycol (miraLAX) 17 gm PRN DAILY PRN PO 1ST CHOICE CONSTIPATION 04/12/21 16:45 Sertraline HCl (Zoloft) 100 mg DAILY PO 04/19/21 09:00 04/26/21 08:43 Benzocaine (Ora-Jel Maximum) 1 belinda PRN QID PRN TP ORAL PAIN 04/20/21 12:45 04/24/21 21:00 DC 04/20/21 14:55 Docusate Sodium (Colace Solution) 100 mg 1X ONCE PO 04/20/21 12:45 04/20/21 12:57 DC Psyllium Hydrophilic Mucilloid (Metamucil) 1 pkt DAILY PO 04/21/21 09:00 Levofloxacin (Levaquin) 250 mg DAILY06 PO 04/22/21 12:30 04/22/21 12:23 DC Levofloxacin (Levaquin) 250 mg DAILY06 PO 04/23/21 06:00 04/28/21 05:59 04/26/21 08:43 Lactobacillus Rhamnosus (Culturelle) 1 cap BID PO 04/24/21 21:00 04/26/21 08:43 Quetiapine Fumarate (SEROquel) 25 mg DAILY PO 04/25/21 09:00 04/26/21 08:43 Quetiapine Fumarate (SEROquel) 25 mg 1700 PO 04/25/21 17:00 04/25/21 17:08 Current Medications Medications (Trade) Dose Ordered Sig/Kassidy Route PRN Reason Start Time Stop Time Status Last Admin Dose Admin Quetiapine Fumarate (SEROquel) 25 mg DAILY PO 04/25/21 09:00 04/26/21 08:43 Quetiapine Fumarate (SEROquel) 25 mg 1700 PO 04/25/21 17:00 04/25/21 17:08 I have reviewed the current psychotropics carefully including drug interactions. Risk benefit ratio favors no change other than as noted in my dictated progress note. Diagnosis: Problems: (1) Major depressive disorder with psychotic features (2) Intellectual disability (3) Anxiety disorder, unspecified (4) Impulse control disorder, unspecified GAMALIEL MALLOY MD Apr 26, 2021 08:45
--- NOTE | 2021-04-26 09:07 | PDOC ---
Exam Note: Brooks Note: This note is a late entry for 04/24/2021 covers elements not covered in my initial note. Subjective: The patient was seen individually in the evening of 04/24/2021 with Dale NEWMAN, discussed and reviewed the chart. The patient slept 6-1/4 hours previous night. I met with the patient in her room. She often refuses medications, refuses to eat. She makes grunting noises at times, cursing at staff. Meds had to be syringed. She is a full code. Review of Systems: Ambulation impaired in wheelchair. No CV, , pulmonary, eye, ENT system symptoms on review. Mental Status Exam: The patient is oriented to herself. Insight and judgment, recent and remote memory, attention and concentration, fund of knowledge is poor consistent with her diagnoses. Laboratory Data: Reviewed. Impression: Major depressive disorder with psychotic features. Anxiety disorder unspecified. Impulse control disorder unspecified. Intellectual disability. Plan: Continue current psychotropics unchanged for now. Assessment: Vital Signs/I&O: Vital Signs Date Time Temp Pulse Resp B/P (MAP) Pulse Ox O2 Delivery O2 Flow Rate FiO2 04/26/21 05:51 97.7 87 18 134/77 (96) 95 04/24/21 10:04 Room Air I & O 04/25/21 04/25/21 04/26/21 15:00 23:00 07:00 Intake Total 240 ml 120 ml Balance 240 ml 120 ml Current Medications: Meds: Current Medications Medications (Trade) Dose Ordered Sig/Kassidy Route PRN Reason Start Time Stop Time Status Last Admin Dose Admin Acetaminophen (Tylenol) 650 mg PRN Q6HRS PRN PO MILD PAIN / TEMP > 100.3'F 03/16/21 15:45 03/30/21 15:04 Multi-Ingredient Ointment (Analgesic [place]) 1 belinda PRN QID PRN TP MUSCLE PAIN 03/16/21 15:45 Al Hydroxide/Mg Hydroxide (Mylanta Plus Xs) 15 ml PRN AFTMEALHC PRN PO DYSPEPSIA 03/16/21 15:45 Magnesium Hydroxide (Milk Of Magnesia) 2,400 mg PRN QHS PRN PO 2ND CHOICE CONSTIPATION 03/16/21 15:45 Acetaminophen (Tylenol) 650 mg PRN Q6HRS PRN PO pain or fever 03/16/21 16:00 UNV Aspirin (Aspirin Chewable) 81 mg DAILY PO 03/17/21 09:00 04/26/21 08:43 Levothyroxine Sodium (Synthroid) 50 mcg DAILY06 PO 03/17/21 06:00 04/26/21 05:25 Al Hydroxide/Mg Hydroxide (Mylanta Plus Xs) 15 ml PRN AFTMEALHC PRN PO DYSPEPSIA 03/16/21 16:00 UNV Magnesium Hydroxide (Milk Of Magnesia) 2,400 mg PRN QHS PRN PO CONSTIPATION 03/16/21 16:00 UNV Metolazone (Zaroxolyn) 5 mg QMWF@0900 PO 03/18/21 09:00 04/22/21 08:51 Mirtazapine (Remeron) 7.5 mg QHS PO 03/16/21 21:00 04/25/21 20:14 Phenytoin Sodium (Dilantin) 300 mg QHS PO 03/16/21 21:00 04/12/21 11:07 DC 04/11/21 21:03 Potassium Chloride (Klor-Con) 20 meq BID PO 03/16/21 21:00 04/12/21 11:07 DC 04/12/21 09:11 Sennosides (Senna) 8.6 mg BID PO 03/16/21 21:00 04/20/21 12:46 DC 04/18/21 07:58 Non-Formulary Medication (Methyl Salicylate/ Menthol (Analgesic [place])) 1 belinda PRN QID PRN TP MUSCLE PAIN 03/16/21 16:00 UNV Multivitamins/ Calcium (Thera-M Plus) 1 tab DAILY PO 03/17/21 09:00 04/26/21 08:43 Polyethylene Glycol (miraLAX) 17 gm DAILY PO 03/17/21 09:00 04/12/21 16:42 DC 04/10/21 08:18 Vitamin D (Vitamin D3) 50,000 unit WEEKLY PO 03/23/21 09:00 04/20/21 08:25 Cetirizine HCl (ZyrTEC) 10 mg DAILY PO 03/17/21 09:00 04/26/21 08:43 Sertraline HCl (Zoloft) 50 mg DAILY PO 03/17/21 09:00 03/18/21 18:34 DC 03/18/21 08:31 Denosumab (Prolia) 60 mg QMONTH SQ 04/15/21 09:00 UNV Phenytoin Sodium (Dilantin) 100 mg BID92 PO 03/17/21 09:00 Cancel Tramadol HCl (Ultram) 50 mg PRN BID PRN PO MOD-SEV PAIN 03/16/21 16:15 04/24/21 10:04 Trazodone HCl (Desyrel) 50 mg QHS PO 03/16/21 21:00 04/25/21 20:13 Ascorbic Acid (Vitamin C) 1,000 mg DAILY PO 03/17/21 09:00 04/26/21 08:43 Melatonin (Melatonin) 6 mg HS PO 03/16/21 21:00 04/25/21 20:13 Zinc Sulfate (Orazinc) 220 mg DAILY PO 03/17/21 09:00 04/26/21 08:43 Sertraline HCl (Zoloft) 75 mg DAILY PO 03/19/21 09:00 04/18/21 18:15 DC 04/18/21 07:59 Olanzapine (ZyPREXA ZYDIS) 2.5 mg PRN Q2HR PRN PO PSYCHOSIS 03/19/21 20:15 04/07/21 15:55 Influenza Virus Vaccine Quadrival (Flulaval Quad [id number] Syringe) 0.5 ml ONCE ONCE VAX IM 03/25/21 09:00 03/25/21 09:01 DC 03/25/21 11:05 Gabapentin (Neurontin) 100 mg TID PO 03/24/21 21:00 03/26/21 11:42 DC 03/26/21 08:24 Gabapentin (Neurontin) 200 mg TID PO 03/26/21 14:00 03/29/21 16:00 DC 03/29/21 13:10 Valproic Acid (Depakene) 250 mg BID PO 03/29/21 21:00 04/02/21 10:15 DC 04/02/21 08:26 Valproic Acid (Depakene) 500 mg BID PO 04/02/21 21:00 04/26/21 08:43 Nystatin (Nystop) 1 belinda BID TP 04/03/21 21:00 04/26/21 08:44 Vitamin A/Vitamin D (Vitamin A & D Ointment) 1 belinda PRN Q1HR PRN TP SKIN PROTECTION 04/03/21 16:45 04/07/21 05:54 Quetiapine Fumarate (SEROquel) 12.5 mg 0900,1300,1700 PO 04/06/21 09:00 04/09/21 01:06 DC 04/08/21 17:03 Quetiapine Fumarate (SEROquel) 12.5 mg QID@0900,1200,1500,1700 PO 04/09/21 09:00 04/24/21 20:55 DC 04/24/21 17:21 Phenytoin Sodium (Dilantin) 300 mg 1700 PO 04/12/21 17:00 04/25/21 17:09 Potassium Chloride (Klor-Con) 20 meq 0800,1700 PO 04/12/21 17:00 04/26/21 08:43 Polyethylene Glycol (miraLAX) 17 gm PRN DAILY PRN PO 1ST CHOICE CONSTIPATION 04/12/21 16:45 Sertraline HCl (Zoloft) 100 mg DAILY PO 04/19/21 09:00 04/26/21 08:43 Benzocaine (Ora-Jel Maximum) 1 belinda PRN QID PRN TP ORAL PAIN 04/20/21 12:45 04/24/21 21:00 DC 04/20/21 14:55 Docusate Sodium (Colace Solution) 100 mg 1X ONCE PO 04/20/21 12:45 04/20/21 12:57 DC Psyllium Hydrophilic Mucilloid (Metamucil) 1 pkt DAILY PO 04/21/21 09:00 Levofloxacin (Levaquin) 250 mg DAILY06 PO 04/22/21 12:30 04/22/21 12:23 DC Levofloxacin (Levaquin) 250 mg DAILY06 PO 04/23/21 06:00 04/28/21 05:59 04/26/21 08:43 Lactobacillus Rhamnosus (Culturelle) 1 cap BID PO 04/24/21 21:00 04/26/21 08:43 Quetiapine Fumarate (SEROquel) 25 mg DAILY PO 04/25/21 09:00 04/26/21 08:43 Quetiapine Fumarate (SEROquel) 25 mg 1700 PO 04/25/21 17:00 04/25/21 17:08 Current Medications Medications (Trade) Dose Ordered Sig/Kassidy Route PRN Reason Start Time Stop Time Status Last Admin Dose Admin Quetiapine Fumarate (SEROquel) 25 mg 1700 PO 04/25/21 17:00 04/25/21 17:08 I have reviewed the current psychotropics carefully including drug interactions. Risk benefit ratio favors no change other than as noted in my dictated progress note. Diagnosis: Problems: (1) Major depressive disorder with psychotic features (2) Intellectual disability (3) Anxiety disorder, unspecified (4) Impulse control disorder, unspecified GAMALIEL MALLOY MD Apr 26, 2021 09:07
[2021-04-26] MEDS: NEOMY/BACITR/POLYMYXIN OINT PACKET. TP SCH ×2 (10:15→20:43)
[2021-04-26 10:23] LABS: BASO % 1 % (0-3); EOS # 0.1 x10^3/uL (0.0-0.7); EOS % 1 % (0-3); HEMATOCRIT 40.4 % (36.0-47.0); HEMOGLOBIN 13.5 g/dL (12.0-15.5); LYMPH # 1.3 x10^3/uL (1.0-4.8); LYMPH % 29 % (24-48); MEAN CORPUSCULAR HEMOGLOBIN 33 pg (25-35); MEAN CORPUSCULAR HGB CONC 33 g/dL (31-37); MEAN CORPUSCULAR VOLUME 99 fL (79-100); MONO # 0.3 x10^3/uL (0.0-1.1); MONO % 8 % (0-9); NEUT # 2.7 x10^3uL (1.8-7.7); NEUT % 62 % (31-73); PLATELET COUNT 269 x10^3/uL (140-400); RED CELL DISTRIBUTION WIDTH 14.2 % (11.5-14.5); WHITE BLOOD COUNT 4.4 x10^3/uL (4.0-11.0)
[2021-04-26 10:28] LABS: ALBUMIN 3.4 g/dL (3.4-5.0); ALBUMIN/GLOBULIN RATIO 0.7 (1.0-1.7); CALCIUM 9.9 mg/dL (8.5-10.1); CREATININE 0.7 mg/dL (0.6-1.0); GFR 82.7; POTASSIUM 3.8 mmol/L (3.5-5.1); TOTAL BILIRUBIN 0.2 mg/dL (0.2-1.0); TOTAL PROTEIN 8.3 g/dL (6.4-8.2)
--- NOTE | 2021-04-26 14:21 | NUR ---
Nursing note: Patient in dinning room for morning medication and assessment. Medications taken crushed in pudding or syringed. She continues to need encouragement to take medications this shift and tries to spit them out. She has limited verbal interaction r/t intellectual disability. Patient has said hi to peers & staff as she passes them in the mathews. She propels self in w/c, requires a [facility] or 2 person transfer. She continues to periodically yell or grunt out, attention seeking, as well as being resistive to cares. She is currently resting in bed with eyes closed. Will continue to monitor. Addendum: 04/26/21 at 1425 by SHADI PARK RN RN Additionally cough & clear nasal drainage noted. She refused lunch and ate little breakfast.
[2021-04-26 15:57] VITALS: BP 133/70
[2021-04-26] MEDS: PHENYTOIN SODIUM EXTENDED 100 MG CAPSULE PO SCH (17:15)
[2021-04-26] MEDS: MELATONIN 3 MG TABLET PO SCH (20:43)
[2021-04-26] MEDS: traZODone 50 MG TABLET. PO SCH (20:43)
[2021-04-26] MEDS: MIRTAZAPINE 7.5 MG TABLET. PO SCH (20:43)
--- NOTE | 2021-04-26 21:56 | PDOC ---
Exam Note: Brooks Note: Please also refer to the separate dictated note~for this date of service dictated separately.~Patient seen individually. Discussed the patient with Nursing staff reviewed the chart.~Reviewed interim history and current functioning. Reviewed vital signs,~Labs/ Radiology~and current medications noted below. Continue current treatment with the changes noted in the dictated addendum note Assessment: Vital Signs/I&O: Vital Signs Date Time Temp Pulse Resp B/P (MAP) Pulse Ox O2 Delivery O2 Flow Rate FiO2 04/26/21 15:57 97.5 78 18 133/70 (91) 93 04/24/21 10:04 Room Air I & O 04/25/21 04/25/21 04/26/21 15:00 23:00 07:00 Intake Total 240 ml 120 ml Balance 240 ml 120 ml Labs: Laboratory Tests Test 04/26/21 09:48 White Blood Count 4.4 x10^3/uL (4.0-11.0) Red Blood Count 4.10 x10^6/uL (3.50-5.40) Hemoglobin 13.5 g/dL (12.0-15.5) Hematocrit 40.4 % (36.0-47.0) Mean Corpuscular Volume 99 fL (79-100) Mean Corpuscular Hemoglobin 33 pg (25-35) Mean Corpuscular Hemoglobin Concent 33 g/dL (31-37) Red Cell Distribution Width 14.2 % (11.5-14.5) Platelet Count 269 x10^3/uL (140-400) Neutrophils (%) (Auto) 62 % (31-73) Lymphocytes (%) (Auto) 29 % (24-48) Monocytes (%) (Auto) 8 % (0-9) Eosinophils (%) (Auto) 1 % (0-3) Basophils (%) (Auto) 1 % (0-3) Neutrophils # (Auto) 2.7 x10^3uL (1.8-7.7) Lymphocytes # (Auto) 1.3 x10^3/uL (1.0-4.8) Monocytes # (Auto) 0.3 x10^3/uL (0.0-1.1) Eosinophils # (Auto) 0.1 x10^3/uL (0.0-0.7) Basophils # (Auto) 0.0 x10^3/uL (0.0-0.2) Sodium Level 144 mmol/L (136-145) Potassium Level 3.8 mmol/L (3.5-5.1) Chloride Level 105 mmol/L (98-107) Carbon Dioxide Level 30 mmol/L (21-32) Anion Gap 9 (6-14) Blood Urea Nitrogen 21 mg/dL (7-20) H Creatinine 0.7 mg/dL (0.6-1.0) Estimated GFR (Cockcroft-Gault) 82.7 BUN/Creatinine Ratio 30 (6-20) H Glucose Level 134 mg/dL (70-99) H Calcium Level 9.9 mg/dL (8.5-10.1) Total Bilirubin 0.2 mg/dL (0.2-1.0) Aspartate Amino Transferase (AST) 23 U/L (15-37) Alanine Aminotransferase (ALT) 29 U/L (14-59) Alkaline Phosphatase 85 U/L (46-116) Total Protein 8.3 g/dL (6.4-8.2) H Albumin 3.4 g/dL (3.4-5.0) Albumin/Globulin Ratio 0.7 (1.0-1.7) L Current Medications: Meds: Laboratory Tests Test 04/26/21 09:48 White Blood Count 4.4 x10^3/uL Red Blood Count 4.10 x10^6/uL Hemoglobin 13.5 g/dL Hematocrit 40.4 % Mean Corpuscular Volume 99 fL Mean Corpuscular Hemoglobin 33 pg Mean Corpuscular Hemoglobin Concent 33 g/dL Red Cell Distribution Width 14.2 % Platelet Count 269 x10^3/uL Neutrophils (%) (Auto) 62 % Lymphocytes (%) (Auto) 29 % Monocytes (%) (Auto) 8 % Eosinophils (%) (Auto) 1 % Basophils (%) (Auto) 1 % Neutrophils # (Auto) 2.7 x10^3uL Lymphocytes # (Auto) 1.3 x10^3/uL Monocytes # (Auto) 0.3 x10^3/uL Eosinophils # (Auto) 0.1 x10^3/uL Basophils # (Auto) 0.0 x10^3/uL Sodium Level 144 mmol/L Potassium Level 3.8 mmol/L Chloride Level 105 mmol/L Carbon Dioxide Level 30 mmol/L Anion Gap 9 Blood Urea Nitrogen 21 mg/dL Creatinine 0.7 mg/dL Estimated GFR (Cockcroft-Gault) 82.7 BUN/Creatinine Ratio 30 Glucose Level 134 mg/dL Calcium Level 9.9 mg/dL Total Bilirubin 0.2 mg/dL Aspartate Amino Transf (AST/SGOT) 23 U/L Alanine Aminotransferase (ALT/SGPT) 29 U/L Alkaline Phosphatase 85 U/L Total Protein 8.3 g/dL Albumin 3.4 g/dL Albumin/Globulin Ratio 0.7 Current Medications Medications (Trade) Dose Ordered Sig/Kassidy Route PRN Reason Start Time Stop Time Status Last Admin Dose Admin Acetaminophen (Tylenol) 650 mg PRN Q6HRS PRN PO MILD PAIN / TEMP > 100.3'F 03/16/21 15:45 03/30/21 15:04 Multi-Ingredient Ointment (Analgesic [place]) 1 belinda PRN QID PRN TP MUSCLE PAIN 03/16/21 15:45 Al Hydroxide/Mg Hydroxide (Mylanta Plus Xs) 15 ml PRN AFTMEALHC PRN PO DYSPEPSIA 03/16/21 15:45 Magnesium Hydroxide (Milk Of Magnesia) 2,400 mg PRN QHS PRN PO 2ND CHOICE CONSTIPATION 03/16/21 15:45 Acetaminophen (Tylenol) 650 mg PRN Q6HRS PRN PO pain or fever 03/16/21 16:00 UNV Aspirin (Aspirin Chewable) 81 mg DAILY PO 03/17/21 09:00 04/26/21 08:43 Levothyroxine Sodium (Synthroid) 50 mcg DAILY06 PO 03/17/21 06:00 04/26/21 05:25 Al Hydroxide/Mg Hydroxide (Mylanta Plus Xs) 15 ml PRN AFTMEALHC PRN PO DYSPEPSIA 03/16/21 16:00 UNV Magnesium Hydroxide (Milk Of Magnesia) 2,400 mg PRN QHS PRN PO CONSTIPATION 03/16/21 16:00 UNV Metolazone (Zaroxolyn) 5 mg QMWF@0900 PO 03/18/21 09:00 04/22/21 08:51 Mirtazapine (Remeron) 7.5 mg QHS PO 03/16/21 21:00 04/26/21 20:43 Phenytoin Sodium (Dilantin) 300 mg QHS PO 03/16/21 21:00 04/12/21 11:07 DC 04/11/21 21:03 Potassium Chloride (Klor-Con) 20 meq BID PO 03/16/21 21:00 04/12/21 11:07 DC 04/12/21 09:11 Sennosides (Senna) 8.6 mg BID PO 03/16/21 21:00 04/20/21 12:46 DC 04/18/21 07:58 Non-Formulary Medication (Methyl Salicylate/ Menthol (Analgesic [place])) 1 belinda PRN QID PRN TP MUSCLE PAIN 03/16/21 16:00 UNV Multivitamins/ Calcium (Thera-M Plus) 1 tab DAILY PO 03/17/21 09:00 04/26/21 08:43 Polyethylene Glycol (miraLAX) 17 gm DAILY PO 03/17/21 09:00 04/12/21 16:42 DC 04/10/21 08:18 Vitamin D (Vitamin D3) 50,000 unit WEEKLY PO 03/23/21 09:00 04/20/21 08:25 Cetirizine HCl (ZyrTEC) 10 mg DAILY PO 03/17/21 09:00 04/26/21 08:43 Sertraline HCl (Zoloft) 50 mg DAILY PO 03/17/21 09:00 03/18/21 18:34 DC 03/18/21 08:31 Denosumab (Prolia) 60 mg QMONTH SQ 04/15/21 09:00 UNV Phenytoin Sodium (Dilantin) 100 mg BID92 PO 03/17/21 09:00 Cancel Tramadol HCl (Ultram) 50 mg PRN BID PRN PO MOD-SEV PAIN 03/16/21 16:15 04/24/21 10:04 Trazodone HCl (Desyrel) 50 mg QHS PO 03/16/21 21:00 04/26/21 20:43 Ascorbic Acid (Vitamin C) 1,000 mg DAILY PO 03/17/21 09:00 04/26/21 08:43 Melatonin (Melatonin) 6 mg HS PO 03/16/21 21:00 04/26/21 20:43 Zinc Sulfate (Orazinc) 220 mg DAILY PO 03/17/21 09:00 04/26/21 08:43 Sertraline HCl (Zoloft) 75 mg DAILY PO 03/19/21 09:00 04/18/21 18:15 DC 04/18/21 07:59 Olanzapine (ZyPREXA ZYDIS) 2.5 mg PRN Q2HR PRN PO PSYCHOSIS 03/19/21 20:15 04/07/21 15:55 Influenza Virus Vaccine Quadrival (Flulaval Quad [id number] Syringe) 0.5 ml ONCE ONCE VAX IM 03/25/21 09:00 03/25/21 09:01 DC 03/25/21 11:05 Gabapentin (Neurontin) 100 mg TID PO 03/24/21 21:00 03/26/21 11:42 DC 03/26/21 08:24 Gabapentin (Neurontin) 200 mg TID PO 03/26/21 14:00 03/29/21 16:00 DC 03/29/21 13:10 Valproic Acid (Depakene) 250 mg BID PO 03/29/21 21:00 04/02/21 10:15 DC 04/02/21 08:26 Valproic Acid (Depakene) 500 mg BID PO 04/02/21 21:00 04/26/21 20:43 Nystatin (Nystop) 1 belinda BID TP 04/03/21 21:00 04/26/21 20:44 Vitamin A/Vitamin D (Vitamin A & D Ointment) 1 belinda PRN Q1HR PRN TP SKIN PROTECTION 04/03/21 16:45 04/07/21 05:54 Quetiapine Fumarate (SEROquel) 12.5 mg 0900,1300,1700 PO 04/06/21 09:00 04/09/21 01:06 DC 04/08/21 17:03 Quetiapine Fumarate (SEROquel) 12.5 mg QID@0900,1200,1500,1700 PO 04/09/21 09:00 04/24/21 20:55 DC 04/24/21 17:21 Phenytoin Sodium (Dilantin) 300 mg 1700 PO 04/12/21 17:00 04/26/21 17:15 Potassium Chloride (Klor-Con) 20 meq 0800,1700 PO 04/12/21 17:00 04/26/21 17:15 Polyethylene Glycol (miraLAX) 17 gm PRN DAILY PRN PO 1ST CHOICE CONSTIPATION 04/12/21 16:45 Sertraline HCl (Zoloft) 100 mg DAILY PO 04/19/21 09:00 04/26/21 08:43 Benzocaine (Ora-Jel Maximum) 1 belinda PRN QID PRN TP ORAL PAIN 04/20/21 12:45 04/24/21 21:00 DC 04/20/21 14:55 Docusate Sodium (Colace Solution) 100 mg 1X ONCE PO 04/20/21 12:45 04/20/21 12:57 DC Psyllium Hydrophilic Mucilloid (Metamucil) 1 pkt DAILY PO 04/21/21 09:00 Levofloxacin (Levaquin) 250 mg DAILY06 PO 04/22/21 12:30 04/22/21 12:23 DC Levofloxacin (Levaquin) 250 mg DAILY06 PO 04/23/21 06:00 04/28/21 05:59 04/26/21 08:43 Lactobacillus Rhamnosus (Culturelle) 1 cap BID PO 04/24/21 21:00 04/26/21 20:43 Quetiapine Fumarate (SEROquel) 25 mg DAILY PO 04/25/21 09:00 04/26/21 08:43 Quetiapine Fumarate (SEROquel) 25 mg 1700 PO 04/25/21 17:00 04/26/21 17:15 Neomycin/ Polymyxin/ Bacitracin (Triple Antibiotic Ointment) 1 pkt BID TP 04/26/21 10:15 04/26/21 20:43 Current Medications Medications (Trade) Dose Ordered Sig/Kassidy Route PRN Reason Start Time Stop Time Status Last Admin Dose Admin Neomycin/ Polymyxin/ Bacitracin (Triple Antibiotic Ointment) 1 pkt BID TP 04/26/21 10:15 04/26/21 20:43 I have reviewed the current psychotropics carefully including drug interactions. Risk benefit ratio favors no change other than as noted in my dictated progress note. Diagnosis: Problems: (1) Major depressive disorder with psychotic features (2) Intellectual disability (3) Anxiety disorder, unspecified (4) Impulse control disorder, unspecified GAMALIEL MALLOY MD Apr 26, 2021 21:56
--- NOTE | 2021-04-26 23:09 | NUR ---
Pt asleep in bed all evening. Irritable when approached. Resistive to HS medications. Medications syringed.
[2021-04-27] MEDS: LEVOTHYROXINE 50 MCG TABLET PO SCH (05:41)
[2021-04-27] MEDS: levoFLOXacin 250 MG TABLET PO SCH (05:41)
[2021-04-27 05:53] VITALS: BP 145/73
[2021-04-27] MEDS: MULTIVITAMIN with MINERAL TABLET. PO SCH (08:50)
[2021-04-27] MEDS: CHOLECALCIFEROL (VITAMIN D3) 50,000 UNIT CAPSULE PO SCH (08:50)
[2021-04-27] MEDS: QUEtiapine 25 MG TABLET. PO SCH ×2 (08:50→17:08)
[2021-04-27] MEDS: ASPIRIN CHEWABLE 81 MG TABLET. PO SCH (08:50)
[2021-04-27] MEDS: CETIRIZINE HCL 10 MG TABLET PO SCH (08:50)
[2021-04-27] MEDS: VALPROATE ACID 250 MG/5 ML ORAL SOLUTION PO SCH ×2 (08:50→20:58)
[2021-04-27] MEDS: LACTOBACILLUS RHAMNOSUS GG 1 CAPSULE. PO SCH ×2 (08:50→20:58)
[2021-04-27] MEDS: metOLazone 5 MG TABLET PO SCH (08:50)
[2021-04-27] MEDS: ASCORBIC ACID 500 MG TABLET PO SCH (08:50)
[2021-04-27] MEDS: ZINC SULFATE 220 MG CAPSULE. PO SCH (08:50)
[2021-04-27] MEDS: SERTRALINE 100 MG TABLET. PO SCH (08:50)
[2021-04-27] MEDS: NEOMY/BACITR/POLYMYXIN OINT PACKET. TP SCH ×2 (08:51→20:58)
[2021-04-27] MEDS: NYSTATIN TOPICAL POWDER 15GM BOTTLE. TP SCH ×2 (08:51→20:58)
[2021-04-27] MEDS: PSYLLIUM SEED (WITH SUGAR) PACKET. PO SCH (08:51)
[2021-04-27] MEDS: POTASSIUM CHLORIDE 20 MEQ TABLET.ER. PO SCH ×2 (08:51→17:08)
--- NOTE | 2021-04-27 13:43 | NUR ---
Nursing note: Patient in dinning room for morning medication and assessment. Medications taken crushed in pudding or syringed. She continues to need encouragement to take medications this shift and tries to spit them out. She has limited verbal interaction r/t intellectual disability. Patient has said hi to peers & staff as she passes them in the mathews. She propels self in w/c, requires a [facility] or 2 person transfer. She continues to periodically yell or grunt out, attention seeking, as well as being resistive to cares. She is currently resting in bed with eyes closed. Will continue to monitor.
[2021-04-27 13:56] LABS: VAL ACID 67 mcg/mL (50-100)
[2021-04-27 16:08] VITALS: BP 149/85
[2021-04-27] MEDS: PHENYTOIN SODIUM EXTENDED 100 MG CAPSULE PO SCH (17:08)
[2021-04-27] MEDS: traZODone 50 MG TABLET. PO SCH (20:58)
[2021-04-27] MEDS: MELATONIN 3 MG TABLET PO SCH (20:58)
[2021-04-27] MEDS: MIRTAZAPINE 7.5 MG TABLET. PO SCH (20:58)
--- NOTE | 2021-04-27 21:53 | PDOC ---
Exam Note: Brooks Note: Please also refer to the separate dictated note~for this date of service dictated separately.~Patient seen individually. Discussed the patient with Nursing staff reviewed the chart.~Reviewed interim history and current functioning. Reviewed vital signs,~Labs/ Radiology~and current medications noted below. Continue current treatment with the changes noted in the dictated addendum note Assessment: Vital Signs/I&O: Vital Signs Date Time Temp Pulse Resp B/P (MAP) Pulse Ox O2 Delivery O2 Flow Rate FiO2 04/27/21 16:08 97.2 81 20 149/85 (106) 100 04/24/21 10:04 Room Air I & O 04/26/21 04/26/21 04/27/21 14:59 22:59 06:59 Intake Total 480 ml 360 ml Balance 480 ml 360 ml Current Medications: Meds: Current Medications Medications (Trade) Dose Ordered Sig/Kassidy Route PRN Reason Start Time Stop Time Status Last Admin Dose Admin Acetaminophen (Tylenol) 650 mg PRN Q6HRS PRN PO MILD PAIN / TEMP > 100.3'F 03/16/21 15:45 03/30/21 15:04 Multi-Ingredient Ointment (Analgesic [place]) 1 belinda PRN QID PRN TP MUSCLE PAIN 03/16/21 15:45 Al Hydroxide/Mg Hydroxide (Mylanta Plus Xs) 15 ml PRN AFTMEALHC PRN PO DYSPEPSIA 03/16/21 15:45 Magnesium Hydroxide (Milk Of Magnesia) 2,400 mg PRN QHS PRN PO 2ND CHOICE CONSTIPATION 03/16/21 15:45 04/27/21 08:50 Acetaminophen (Tylenol) 650 mg PRN Q6HRS PRN PO pain or fever 03/16/21 16:00 UNV Aspirin (Aspirin Chewable) 81 mg DAILY PO 03/17/21 09:00 04/27/21 08:50 Levothyroxine Sodium (Synthroid) 50 mcg DAILY06 PO 03/17/21 06:00 04/27/21 05:41 Al Hydroxide/Mg Hydroxide (Mylanta Plus Xs) 15 ml PRN AFTMEALHC PRN PO DYSPEPSIA 03/16/21 16:00 UNV Magnesium Hydroxide (Milk Of Magnesia) 2,400 mg PRN QHS PRN PO CONSTIPATION 03/16/21 16:00 UNV Metolazone (Zaroxolyn) 5 mg QMWF@0900 PO 03/18/21 09:00 04/27/21 08:50 Mirtazapine (Remeron) 7.5 mg QHS PO 03/16/21 21:00 04/27/21 20:58 Phenytoin Sodium (Dilantin) 300 mg QHS PO 03/16/21 21:00 04/12/21 11:07 DC 04/11/21 21:03 Potassium Chloride (Klor-Con) 20 meq BID PO 03/16/21 21:00 04/12/21 11:07 DC 04/12/21 09:11 Sennosides (Senna) 8.6 mg BID PO 03/16/21 21:00 04/20/21 12:46 DC 04/18/21 07:58 Non-Formulary Medication (Methyl Salicylate/ Menthol (Analgesic [place])) 1 belinda PRN QID PRN TP MUSCLE PAIN 03/16/21 16:00 UNV Multivitamins/ Calcium (Thera-M Plus) 1 tab DAILY PO 03/17/21 09:00 04/27/21 08:50 Polyethylene Glycol (miraLAX) 17 gm DAILY PO 03/17/21 09:00 04/12/21 16:42 DC 04/10/21 08:18 Vitamin D (Vitamin D3) 50,000 unit WEEKLY PO 03/23/21 09:00 04/27/21 08:50 Cetirizine HCl (ZyrTEC) 10 mg DAILY PO 03/17/21 09:00 04/27/21 08:50 Sertraline HCl (Zoloft) 50 mg DAILY PO 03/17/21 09:00 03/18/21 18:34 DC 03/18/21 08:31 Denosumab (Prolia) 60 mg QMONTH SQ 04/15/21 09:00 UNV Phenytoin Sodium (Dilantin) 100 mg BID92 PO 03/17/21 09:00 Cancel Tramadol HCl (Ultram) 50 mg PRN BID PRN PO MOD-SEV PAIN 03/16/21 16:15 04/24/21 10:04 Trazodone HCl (Desyrel) 50 mg QHS PO 03/16/21 21:00 04/27/21 20:58 Ascorbic Acid (Vitamin C) 1,000 mg DAILY PO 03/17/21 09:00 04/27/21 08:50 Melatonin (Melatonin) 6 mg HS PO 03/16/21 21:00 04/27/21 20:58 Zinc Sulfate (Orazinc) 220 mg DAILY PO 03/17/21 09:00 04/27/21 08:50 Sertraline HCl (Zoloft) 75 mg DAILY PO 03/19/21 09:00 04/18/21 18:15 DC 04/18/21 07:59 Olanzapine (ZyPREXA ZYDIS) 2.5 mg PRN Q2HR PRN PO PSYCHOSIS 03/19/21 20:15 04/07/21 15:55 Influenza Virus Vaccine Quadrival (Flulaval Quad [id number] Syringe) 0.5 ml ONCE ONCE VAX IM 03/25/21 09:00 03/25/21 09:01 DC 03/25/21 11:05 Gabapentin (Neurontin) 100 mg TID PO 03/24/21 21:00 03/26/21 11:42 DC 03/26/21 08:24 Gabapentin (Neurontin) 200 mg TID PO 03/26/21 14:00 03/29/21 16:00 DC 03/29/21 13:10 Valproic Acid (Depakene) 250 mg BID PO 03/29/21 21:00 04/02/21 10:15 DC 04/02/21 08:26 Valproic Acid (Depakene) 500 mg BID PO 04/02/21 21:00 04/27/21 20:58 Nystatin (Nystop) 1 belinda BID TP 04/03/21 21:00 04/27/21 20:58 Vitamin A/Vitamin D (Vitamin A & D Ointment) 1 belinda PRN Q1HR PRN TP SKIN PROTECTION 04/03/21 16:45 04/07/21 05:54 Quetiapine Fumarate (SEROquel) 12.5 mg 0900,1300,1700 PO 04/06/21 09:00 04/09/21 01:06 DC 04/08/21 17:03 Quetiapine Fumarate (SEROquel) 12.5 mg QID@0900,1200,1500,1700 PO 04/09/21 09:00 04/24/21 20:55 DC 04/24/21 17:21 Phenytoin Sodium (Dilantin) 300 mg 1700 PO 04/12/21 17:00 04/27/21 17:08 Potassium Chloride (Klor-Con) 20 meq 0800,1700 PO 04/12/21 17:00 04/27/21 17:08 Polyethylene Glycol (miraLAX) 17 gm PRN DAILY PRN PO 1ST CHOICE CONSTIPATION 04/12/21 16:45 Sertraline HCl (Zoloft) 100 mg DAILY PO 04/19/21 09:00 04/27/21 08:50 Benzocaine (Ora-Jel Maximum) 1 belinda PRN QID PRN TP ORAL PAIN 04/20/21 12:45 04/24/21 21:00 DC 04/20/21 14:55 Docusate Sodium (Colace Solution) 100 mg 1X ONCE PO 04/20/21 12:45 04/20/21 12:57 DC Psyllium Hydrophilic Mucilloid (Metamucil) 1 pkt DAILY PO 04/21/21 09:00 04/27/21 11:15 DC Levofloxacin (Levaquin) 250 mg DAILY06 PO 04/22/21 12:30 04/22/21 12:23 DC Levofloxacin (Levaquin) 250 mg DAILY06 PO 04/23/21 06:00 04/28/21 05:59 04/27/21 05:41 Lactobacillus Rhamnosus (Culturelle) 1 cap BID PO 04/24/21 21:00 04/27/21 20:58 Quetiapine Fumarate (SEROquel) 25 mg DAILY PO 04/25/21 09:00 04/27/21 08:50 Quetiapine Fumarate (SEROquel) 25 mg 1700 PO 04/25/21 17:00 04/27/21 17:08 Neomycin/ Polymyxin/ Bacitracin (Triple Antibiotic Ointment) 1 pkt BID TP 04/26/21 10:15 04/27/21 20:58 Calcium Polycarbophil (Fibercon) 625 mg DAILY PO 04/28/21 09:00 I have reviewed the current psychotropics carefully including drug interactions. Risk benefit ratio favors no change other than as noted in my dictated progress note. Diagnosis: Problems: (1) Major depressive disorder with psychotic features (2) Intellectual disability (3) Impulse control disorder, unspecified (4) Anxiety disorder, unspecified GAMA,MAN M MD Apr 27, 2021 21:53
--- NOTE | 2021-04-27 22:28 | NUR ---
Pt wandering around unit this evening. Yelling out intermittently. Resistive to crushed medications.
[2021-04-28 05:42] VITALS: BP 132/75
[2021-04-28] MEDS: NEOMY/BACITR/POLYMYXIN OINT PACKET. TP SCH ×2 (05:49→20:06)
[2021-04-28] MEDS: POTASSIUM CHLORIDE 20 MEQ TABLET.ER. PO SCH ×2 (08:59→17:28)
[2021-04-28] MEDS: ZINC SULFATE 220 MG CAPSULE. PO SCH (09:00)
[2021-04-28] MEDS: SERTRALINE 100 MG TABLET. PO SCH (09:00)
[2021-04-28] MEDS: ASCORBIC ACID 500 MG TABLET PO SCH (09:00)
[2021-04-28] MEDS: LACTOBACILLUS RHAMNOSUS GG 1 CAPSULE. PO SCH ×2 (09:00→20:05)
[2021-04-28] MEDS: CALCIUM POLYCARBOPHIL 625 MG TABLET PO SCH (09:00)
[2021-04-28] MEDS: NYSTATIN TOPICAL POWDER 15GM BOTTLE. TP SCH ×2 (09:00→20:06)
[2021-04-28] MEDS: MULTIVITAMIN with MINERAL TABLET. PO SCH (09:00)
[2021-04-28] MEDS: ASPIRIN CHEWABLE 81 MG TABLET. PO SCH (09:00)
[2021-04-28] MEDS: CETIRIZINE HCL 10 MG TABLET PO SCH (09:00)
[2021-04-28] MEDS: QUEtiapine 25 MG TABLET. PO SCH ×2 (09:00→17:28)
[2021-04-28] MEDS: LEVOTHYROXINE 50 MCG TABLET PO SCH (09:00)
[2021-04-28] MEDS: VALPROATE ACID 250 MG/5 ML ORAL SOLUTION PO SCH ×2 (09:00→20:05)
--- NOTE | 2021-04-28 09:24 | PDOC ---
Exam Note: Brooks Note: This note is a late entry for 04/25/2021 covers elements not covered in my initial note. Subjective: The patient was seen individually in the evening of 04/25/2021 with Sunday NEWMAN, discussed and reviewed the chart. The patient slept 7-1/2 hours previous night. She was refusing her medications, anxious and labile in her mood. Oral intake is poor. Review of Systems: Ambulation impaired in wheelchair. No CV, , pulmonary, eye, ENT system symptoms on review. Reliability poor. Mental Status Exam: The patient is oriented to herself. Insight and judgment, recent and remote memory, attention and concentration, fund of knowledge is poor consistent with her diagnoses. Laboratory Data: Reviewed. Impression: Major depressive disorder with psychotic features. Anxiety disorder unspecified. Impulse control disorder unspecified. Intellectual disability. Plan: Continue current psychotropics unchanged for now. Assessment: Vital Signs/I&O: Vital Signs Date Time Temp Pulse Resp B/P (MAP) Pulse Ox O2 Delivery O2 Flow Rate FiO2 04/28/21 05:42 97.4 77 20 132/75 (94) 96 Room Air I & O 04/27/21 04/27/21 04/28/21 15:00 23:00 07:00 Intake Total 300 ml 0 ml Balance 300 ml 0 ml Current Medications: Meds: Current Medications Medications (Trade) Dose Ordered Sig/Kassidy Route PRN Reason Start Time Stop Time Status Last Admin Dose Admin Acetaminophen (Tylenol) 650 mg PRN Q6HRS PRN PO MILD PAIN / TEMP > 100.3'F 03/16/21 15:45 03/30/21 15:04 Multi-Ingredient Ointment (Analgesic [place]) 1 belinda PRN QID PRN TP MUSCLE PAIN 03/16/21 15:45 Al Hydroxide/Mg Hydroxide (Mylanta Plus Xs) 15 ml PRN AFTMEALHC PRN PO DYSPEPSIA 03/16/21 15:45 Magnesium Hydroxide (Milk Of Magnesia) 2,400 mg PRN QHS PRN PO 2ND CHOICE CONSTIPATION 03/16/21 15:45 04/27/21 08:50 Acetaminophen (Tylenol) 650 mg PRN Q6HRS PRN PO pain or fever 03/16/21 16:00 UNV Aspirin (Aspirin Chewable) 81 mg DAILY PO 03/17/21 09:00 04/28/21 09:00 Levothyroxine Sodium (Synthroid) 50 mcg DAILY06 PO 03/17/21 06:00 04/28/21 09:00 Al Hydroxide/Mg Hydroxide (Mylanta Plus Xs) 15 ml PRN AFTMEALHC PRN PO DYSPEPSIA 03/16/21 16:00 UNV Magnesium Hydroxide (Milk Of Magnesia) 2,400 mg PRN QHS PRN PO CONSTIPATION 03/16/21 16:00 UNV Metolazone (Zaroxolyn) 5 mg QMWF@0900 PO 03/18/21 09:00 04/27/21 08:50 Mirtazapine (Remeron) 7.5 mg QHS PO 03/16/21 21:00 04/27/21 20:58 Phenytoin Sodium (Dilantin) 300 mg QHS PO 03/16/21 21:00 04/12/21 11:07 DC 04/11/21 21:03 Potassium Chloride (Klor-Con) 20 meq BID PO 03/16/21 21:00 04/12/21 11:07 DC 04/12/21 09:11 Sennosides (Senna) 8.6 mg BID PO 03/16/21 21:00 04/20/21 12:46 DC 04/18/21 07:58 Non-Formulary Medication (Methyl Salicylate/ Menthol (Analgesic [place])) 1 belinda PRN QID PRN TP MUSCLE PAIN 03/16/21 16:00 UNV Multivitamins/ Calcium (Thera-M Plus) 1 tab DAILY PO 03/17/21 09:00 04/28/21 09:00 Polyethylene Glycol (miraLAX) 17 gm DAILY PO 03/17/21 09:00 04/12/21 16:42 DC 04/10/21 08:18 Vitamin D (Vitamin D3) 50,000 unit WEEKLY PO 03/23/21 09:00 04/27/21 08:50 Cetirizine HCl (ZyrTEC) 10 mg DAILY PO 03/17/21 09:00 04/28/21 09:00 Sertraline HCl (Zoloft) 50 mg DAILY PO 03/17/21 09:00 03/18/21 18:34 DC 03/18/21 08:31 Denosumab (Prolia) 60 mg QMONTH SQ 04/15/21 09:00 UNV Phenytoin Sodium (Dilantin) 100 mg BID92 PO 03/17/21 09:00 Cancel Tramadol HCl (Ultram) 50 mg PRN BID PRN PO MOD-SEV PAIN 03/16/21 16:15 04/24/21 10:04 Trazodone HCl (Desyrel) 50 mg QHS PO 03/16/21 21:00 04/27/21 20:58 Ascorbic Acid (Vitamin C) 1,000 mg DAILY PO 03/17/21 09:00 04/28/21 09:00 Melatonin (Melatonin) 6 mg HS PO 03/16/21 21:00 04/27/21 20:58 Zinc Sulfate (Orazinc) 220 mg DAILY PO 03/17/21 09:00 04/27/21 08:50 Sertraline HCl (Zoloft) 75 mg DAILY PO 03/19/21 09:00 04/18/21 18:15 DC 04/18/21 07:59 Olanzapine (ZyPREXA ZYDIS) 2.5 mg PRN Q2HR PRN PO PSYCHOSIS 03/19/21 20:15 04/07/21 15:55 Influenza Virus Vaccine Quadrival (Flulaval Quad [id number] Syringe) 0.5 ml ONCE ONCE VAX IM 03/25/21 09:00 03/25/21 09:01 DC 03/25/21 11:05 Gabapentin (Neurontin) 100 mg TID PO 03/24/21 21:00 03/26/21 11:42 DC 03/26/21 08:24 Gabapentin (Neurontin) 200 mg TID PO 03/26/21 14:00 03/29/21 16:00 DC 03/29/21 13:10 Valproic Acid (Depakene) 250 mg BID PO 03/29/21 21:00 04/02/21 10:15 DC 04/02/21 08:26 Valproic Acid (Depakene) 500 mg BID PO 04/02/21 21:00 04/28/21 09:00 Nystatin (Nystop) 1 belinda BID TP 04/03/21 21:00 04/28/21 09:00 Vitamin A/Vitamin D (Vitamin A & D Ointment) 1 belinda PRN Q1HR PRN TP SKIN PROTECTION 04/03/21 16:45 04/07/21 05:54 Quetiapine Fumarate (SEROquel) 12.5 mg 0900,1300,1700 PO 04/06/21 09:00 04/09/21 01:06 DC 04/08/21 17:03 Quetiapine Fumarate (SEROquel) 12.5 mg QID@0900,1200,1500,1700 PO 04/09/21 09:00 04/24/21 20:55 DC 04/24/21 17:21 Phenytoin Sodium (Dilantin) 300 mg 1700 PO 04/12/21 17:00 04/27/21 17:08 Potassium Chloride (Klor-Con) 20 meq 0800,1700 PO 04/12/21 17:00 04/28/21 08:59 Polyethylene Glycol (miraLAX) 17 gm PRN DAILY PRN PO 1ST CHOICE CONSTIPATION 04/12/21 16:45 Sertraline HCl (Zoloft) 100 mg DAILY PO 04/19/21 09:00 04/28/21 09:00 Benzocaine (Ora-Jel Maximum) 1 belinda PRN QID PRN TP ORAL PAIN 04/20/21 12:45 04/24/21 21:00 DC 04/20/21 14:55 Docusate Sodium (Colace Solution) 100 mg 1X ONCE PO 04/20/21 12:45 04/20/21 12:57 DC Psyllium Hydrophilic Mucilloid (Metamucil) 1 pkt DAILY PO 04/21/21 09:00 04/27/21 11:15 DC Levofloxacin (Levaquin) 250 mg DAILY06 PO 04/22/21 12:30 04/22/21 12:23 DC Levofloxacin (Levaquin) 250 mg DAILY06 PO 04/23/21 06:00 04/28/21 05:59 DC 04/27/21 05:41 Lactobacillus Rhamnosus (Culturelle) 1 cap BID PO 04/24/21 21:00 04/28/21 09:00 Quetiapine Fumarate (SEROquel) 25 mg DAILY PO 04/25/21 09:00 04/28/21 09:00 Quetiapine Fumarate (SEROquel) 25 mg 1700 PO 04/25/21 17:00 04/27/21 17:08 Neomycin/ Polymyxin/ Bacitracin (Triple Antibiotic Ointment) 1 pkt BID TP 04/26/21 10:15 04/28/21 05:49 Calcium Polycarbophil (Fibercon) 625 mg DAILY PO 04/28/21 09:00 04/28/21 09:00 Current Medications Medications (Trade) Dose Ordered Sig/Kassidy Route PRN Reason Start Time Stop Time Status Last Admin Dose Admin Calcium Polycarbophil (Fibercon) 625 mg DAILY PO 04/28/21 09:00 04/28/21 09:00 I have reviewed the current psychotropics carefully including drug interactions. Risk benefit ratio favors no change other than as noted in my dictated progress note. Diagnosis: Problems: (1) Major depressive disorder with psychotic features (2) Intellectual disability (3) Anxiety disorder, unspecified (4) Impulse control disorder, unspecified GAMALIEL MALLOY MD Apr 28, 2021 09:24
--- NOTE | 2021-04-28 10:13 | PDOC ---
Exam Note: Brooks Note: This note is a late entry for 04/26/2021 covers elements not covered in my initial note. Subjective: The patient was seen individually in the evening of 04/26/2021 with Amina NEWMAN, discussed and reviewed the chart. The patient slept 7-3/4 hours previous night. She was agitated previous evening. Meds had to be given syringed. She does have UTI, remains on Levaquin. Hopefully if this resolves some of her irritability, mood lability will improve. As I met with her she continued to be yelling out at times, repetitive in her speech, disorganized, consistent with intellectual disability and bipolar disorder. Review of Systems: Ambulation impaired in wheelchair. No CV, , pulmonary, e ye, ENT system symptoms on review. Reliability poor. Mental Status Exam: The patient is oriented to herself. Insight and judgment, recent and remote memory, attention and concentration, fund of knowledge is poor consistent with her diagnoses. Laboratory Data: Reviewed. Impression: Major depressive disorder with psychotic features. Anxiety disorder unspecified. Impulse control disorder unspecified. Intellectual disability. Plan: Continue current psychotropics unchanged for now. Assessment: Vital Signs/I&O: Vital Signs Date Time Temp Pulse Resp B/P (MAP) Pulse Ox O2 Delivery O2 Flow Rate FiO2 04/28/21 05:42 97.4 77 20 132/75 (94) 96 Room Air I & O 04/27/21 04/27/21 04/28/21 15:00 23:00 07:00 Intake Total 300 ml 0 ml Balance 300 ml 0 ml Current Medications: Meds: Current Medications Medications (Trade) Dose Ordered Sig/Kassidy Route PRN Reason Start Time Stop Time Status Last Admin Dose Admin Acetaminophen (Tylenol) 650 mg PRN Q6HRS PRN PO MILD PAIN / TEMP > 100.3'F 03/16/21 15:45 03/30/21 15:04 Multi-Ingredient Ointment (Analgesic [place]) 1 belinda PRN QID PRN TP MUSCLE PAIN 03/16/21 15:45 Al Hydroxide/Mg Hydroxide (Mylanta Plus Xs) 15 ml PRN AFTMEALHC PRN PO DYSPEPSIA 03/16/21 15:45 Magnesium Hydroxide (Milk Of Magnesia) 2,400 mg PRN QHS PRN PO 2ND CHOICE CONSTIPATION 03/16/21 15:45 04/27/21 08:50 Acetaminophen (Tylenol) 650 mg PRN Q6HRS PRN PO pain or fever 03/16/21 16:00 UNV Aspirin (Aspirin Chewable) 81 mg DAILY PO 03/17/21 09:00 04/28/21 09:00 Levothyroxine Sodium (Synthroid) 50 mcg DAILY06 PO 03/17/21 06:00 04/28/21 09:00 Al Hydroxide/Mg Hydroxide (Mylanta Plus Xs) 15 ml PRN AFTMEALHC PRN PO DYSPEPSIA 03/16/21 16:00 UNV Magnesium Hydroxide (Milk Of Magnesia) 2,400 mg PRN QHS PRN PO CONSTIPATION 03/16/21 16:00 UNV Metolazone (Zaroxolyn) 5 mg QMWF@0900 PO 03/18/21 09:00 04/27/21 08:50 Mirtazapine (Remeron) 7.5 mg QHS PO 03/16/21 21:00 04/27/21 20:58 Phenytoin Sodium (Dilantin) 300 mg QHS PO 03/16/21 21:00 04/12/21 11:07 DC 04/11/21 21:03 Potassium Chloride (Klor-Con) 20 meq BID PO 03/16/21 21:00 04/12/21 11:07 DC 04/12/21 09:11 Sennosides (Senna) 8.6 mg BID PO 03/16/21 21:00 04/20/21 12:46 DC 04/18/21 07:58 Non-Formulary Medication (Methyl Salicylate/ Menthol (Analgesic [place])) 1 belinda PRN QID PRN TP MUSCLE PAIN 03/16/21 16:00 UNV Multivitamins/ Calcium (Thera-M Plus) 1 tab DAILY PO 03/17/21 09:00 04/28/21 09:00 Polyethylene Glycol (miraLAX) 17 gm DAILY PO 03/17/21 09:00 04/12/21 16:42 DC 04/10/21 08:18 Vitamin D (Vitamin D3) 50,000 unit WEEKLY PO 03/23/21 09:00 04/27/21 08:50 Cetirizine HCl (ZyrTEC) 10 mg DAILY PO 03/17/21 09:00 04/28/21 09:00 Sertraline HCl (Zoloft) 50 mg DAILY PO 03/17/21 09:00 03/18/21 18:34 DC 03/18/21 08:31 Denosumab (Prolia) 60 mg QMONTH SQ 04/15/21 09:00 UNV Phenytoin Sodium (Dilantin) 100 mg BID92 PO 03/17/21 09:00 Cancel Tramadol HCl (Ultram) 50 mg PRN BID PRN PO MOD-SEV PAIN 03/16/21 16:15 04/24/21 10:04 Trazodone HCl (Desyrel) 50 mg QHS PO 03/16/21 21:00 04/27/21 20:58 Ascorbic Acid (Vitamin C) 1,000 mg DAILY PO 03/17/21 09:00 04/28/21 09:00 Melatonin (Melatonin) 6 mg HS PO 03/16/21 21:00 04/27/21 20:58 Zinc Sulfate (Orazinc) 220 mg DAILY PO 03/17/21 09:00 04/27/21 08:50 Sertraline HCl (Zoloft) 75 mg DAILY PO 03/19/21 09:00 04/18/21 18:15 DC 04/18/21 07:59 Olanzapine (ZyPREXA ZYDIS) 2.5 mg PRN Q2HR PRN PO PSYCHOSIS 03/19/21 20:15 04/07/21 15:55 Influenza Virus Vaccine Quadrival (Flulaval Quad [id number] Syringe) 0.5 ml ONCE ONCE VAX IM 03/25/21 09:00 03/25/21 09:01 DC 03/25/21 11:05 Gabapentin (Neurontin) 100 mg TID PO 03/24/21 21:00 03/26/21 11:42 DC 03/26/21 08:24 Gabapentin (Neurontin) 200 mg TID PO 03/26/21 14:00 03/29/21 16:00 DC 03/29/21 13:10 Valproic Acid (Depakene) 250 mg BID PO 03/29/21 21:00 04/02/21 10:15 DC 04/02/21 08:26 Valproic Acid (Depakene) 500 mg BID PO 04/02/21 21:00 04/28/21 09:00 Nystatin (Nystop) 1 belinda BID TP 04/03/21 21:00 04/28/21 09:00 Vitamin A/Vitamin D (Vitamin A & D Ointment) 1 belinda PRN Q1HR PRN TP SKIN PROTECTION 04/03/21 16:45 04/07/21 05:54 Quetiapine Fumarate (SEROquel) 12.5 mg 0900,1300,1700 PO 04/06/21 09:00 04/09/21 01:06 DC 04/08/21 17:03 Quetiapine Fumarate (SEROquel) 12.5 mg QID@0900,1200,1500,1700 PO 04/09/21 09:00 04/24/21 20:55 DC 04/24/21 17:21 Phenytoin Sodium (Dilantin) 300 mg 1700 PO 04/12/21 17:00 04/27/21 17:08 Potassium Chloride (Klor-Con) 20 meq 0800,1700 PO 04/12/21 17:00 04/28/21 08:59 Polyethylene Glycol (miraLAX) 17 gm PRN DAILY PRN PO 1ST CHOICE CONSTIPATION 04/12/21 16:45 Sertraline HCl (Zoloft) 100 mg DAILY PO 04/19/21 09:00 04/28/21 09:00 Benzocaine (Ora-Jel Maximum) 1 belinda PRN QID PRN TP ORAL PAIN 04/20/21 12:45 04/24/21 21:00 DC 04/20/21 14:55 Docusate Sodium (Colace Solution) 100 mg 1X ONCE PO 04/20/21 12:45 04/20/21 12:57 DC Psyllium Hydrophilic Mucilloid (Metamucil) 1 pkt DAILY PO 04/21/21 09:00 04/27/21 11:15 DC Levofloxacin (Levaquin) 250 mg DAILY06 PO 04/22/21 12:30 04/22/21 12:23 DC Levofloxacin (Levaquin) 250 mg DAILY06 PO 04/23/21 06:00 04/28/21 05:59 DC 04/27/21 05:41 Lactobacillus Rhamnosus (Culturelle) 1 cap BID PO 04/24/21 21:00 04/28/21 09:00 Quetiapine Fumarate (SEROquel) 25 mg DAILY PO 04/25/21 09:00 04/28/21 09:00 Quetiapine Fumarate (SEROquel) 25 mg 1700 PO 04/25/21 17:00 04/27/21 17:08 Neomycin/ Polymyxin/ Bacitracin (Triple Antibiotic Ointment) 1 pkt BID TP 04/26/21 10:15 04/28/21 05:49 Calcium Polycarbophil (Fibercon) 625 mg DAILY PO 04/28/21 09:00 04/28/21 09:00 Current Medications Medications (Trade) Dose Ordered Sig/Kassidy Route PRN Reason Start Time Stop Time Status Last Admin Dose Admin Calcium Polycarbophil (Fibercon) 625 mg DAILY PO 04/28/21 09:00 04/28/21 09:00 I have reviewed the current psychotropics carefully including drug interactions. Risk benefit ratio favors no change other than as noted in my dictated progress note. Diagnosis: Problems: (1) Impulse control disorder, unspecified (2) Anxiety disorder, unspecified (3) Major depressive disorder with psychotic features (4) Intellectual disability GAMALIEL MALLOY MD Apr 28, 2021 10:12
--- NOTE | 2021-04-28 14:49 | NUR ---
[facility] Social Work Discharge Planning Form Patient Name LEROY BAHENA Admit Date: 03/16/21 DISCHARGE PLAN Discharge Destination: [facility] Care Assessment: No Level II Assessment: No Transportation: Facility will pick pt up at 1330. Special Instructions/Notes: Please fax signed med list and visit summary. DISCHARGE TO FACILITY Facility: [facility] Address: [address] [place] [address] Chief Dispatcher: Monica PCP: Dr. Rincon Psychiatrist: None
[2021-04-28 16:04] VITALS: BP 162/68
[2021-04-28] MEDS: PHENYTOIN SODIUM EXTENDED 100 MG CAPSULE PO SCH (17:28)
[2021-04-28] MEDS: MIRTAZAPINE 7.5 MG TABLET. PO SCH (20:06)
[2021-04-28] MEDS: MELATONIN 3 MG TABLET PO SCH (20:06)
[2021-04-28] MEDS: traZODone 50 MG TABLET. PO SCH (20:06)
--- NOTE | 2021-04-28 21:54 | PDOC ---
Exam Note: Brooks Note: Please also refer to the separate dictated note~for this date of service dictated separately.~Patient seen individually. Discussed the patient with Nursing staff reviewed the chart.~Reviewed interim history and current functioning. Reviewed vital signs,~Labs/ Radiology~and current medications noted below. Continue current treatment with the changes noted in the dictated addendum note Assessment: Vital Signs/I&O: Vital Signs Date Time Temp Pulse Resp B/P (MAP) Pulse Ox O2 Delivery O2 Flow Rate FiO2 04/28/21 16:04 97.9 82 22 162/68 (99) 98 04/28/21 05:42 Room Air I & O 04/27/21 04/27/21 04/28/21 15:00 23:00 07:00 Intake Total 300 ml 0 ml Balance 300 ml 0 ml Current Medications: Meds: Current Medications Medications (Trade) Dose Ordered Sig/Kassidy Route PRN Reason Start Time Stop Time Status Last Admin Dose Admin Acetaminophen (Tylenol) 650 mg PRN Q6HRS PRN PO MILD PAIN / TEMP > 100.3'F 03/16/21 15:45 03/30/21 15:04 Multi-Ingredient Ointment (Analgesic [place]) 1 belinda PRN QID PRN TP MUSCLE PAIN 03/16/21 15:45 Al Hydroxide/Mg Hydroxide (Mylanta Plus Xs) 15 ml PRN AFTMEALHC PRN PO DYSPEPSIA 03/16/21 15:45 Magnesium Hydroxide (Milk Of Magnesia) 2,400 mg PRN QHS PRN PO 2ND CHOICE CONSTIPATION 03/16/21 15:45 04/27/21 08:50 Acetaminophen (Tylenol) 650 mg PRN Q6HRS PRN PO pain or fever 03/16/21 16:00 UNV Aspirin (Aspirin Chewable) 81 mg DAILY PO 03/17/21 09:00 04/28/21 09:00 Levothyroxine Sodium (Synthroid) 50 mcg DAILY06 PO 03/17/21 06:00 04/28/21 09:00 Al Hydroxide/Mg Hydroxide (Mylanta Plus Xs) 15 ml PRN AFTMEALHC PRN PO DYSPEPSIA 03/16/21 16:00 UNV Magnesium Hydroxide (Milk Of Magnesia) 2,400 mg PRN QHS PRN PO CONSTIPATION 03/16/21 16:00 UNV Metolazone (Zaroxolyn) 5 mg QMWF@0900 PO 03/18/21 09:00 04/27/21 08:50 Mirtazapine (Remeron) 7.5 mg QHS PO 03/16/21 21:00 04/28/21 20:06 Phenytoin Sodium (Dilantin) 300 mg QHS PO 03/16/21 21:00 04/12/21 11:07 DC 04/11/21 21:03 Potassium Chloride (Klor-Con) 20 meq BID PO 03/16/21 21:00 04/12/21 11:07 DC 04/12/21 09:11 Sennosides (Senna) 8.6 mg BID PO 03/16/21 21:00 04/20/21 12:46 DC 04/18/21 07:58 Non-Formulary Medication (Methyl Salicylate/ Menthol (Analgesic [place])) 1 belinda PRN QID PRN TP MUSCLE PAIN 03/16/21 16:00 UNV Multivitamins/ Calcium (Thera-M Plus) 1 tab DAILY PO 03/17/21 09:00 04/28/21 09:00 Polyethylene Glycol (miraLAX) 17 gm DAILY PO 03/17/21 09:00 04/12/21 16:42 DC 04/10/21 08:18 Vitamin D (Vitamin D3) 50,000 unit WEEKLY PO 03/23/21 09:00 04/27/21 08:50 Cetirizine HCl (ZyrTEC) 10 mg DAILY PO 03/17/21 09:00 04/28/21 09:00 Sertraline HCl (Zoloft) 50 mg DAILY PO 03/17/21 09:00 03/18/21 18:34 DC 03/18/21 08:31 Denosumab (Prolia) 60 mg QMONTH SQ 04/15/21 09:00 UNV Phenytoin Sodium (Dilantin) 100 mg BID92 PO 03/17/21 09:00 Cancel Tramadol HCl (Ultram) 50 mg PRN BID PRN PO MOD-SEV PAIN 03/16/21 16:15 04/24/21 10:04 Trazodone HCl (Desyrel) 50 mg QHS PO 03/16/21 21:00 04/28/21 20:06 Ascorbic Acid (Vitamin C) 1,000 mg DAILY PO 03/17/21 09:00 04/28/21 09:00 Melatonin (Melatonin) 6 mg HS PO 03/16/21 21:00 04/28/21 20:06 Zinc Sulfate (Orazinc) 220 mg DAILY PO 03/17/21 09:00 04/27/21 08:50 Sertraline HCl (Zoloft) 75 mg DAILY PO 03/19/21 09:00 04/18/21 18:15 DC 04/18/21 07:59 Olanzapine (ZyPREXA ZYDIS) 2.5 mg PRN Q2HR PRN PO PSYCHOSIS 03/19/21 20:15 04/07/21 15:55 Influenza Virus Vaccine Quadrival (Flulaval Quad [id number] Syringe) 0.5 ml ONCE ONCE VAX IM 03/25/21 09:00 03/25/21 09:01 DC 03/25/21 11:05 Gabapentin (Neurontin) 100 mg TID PO 03/24/21 21:00 03/26/21 11:42 DC 03/26/21 08:24 Gabapentin (Neurontin) 200 mg TID PO 03/26/21 14:00 03/29/21 16:00 DC 03/29/21 13:10 Valproic Acid (Depakene) 250 mg BID PO 03/29/21 21:00 04/02/21 10:15 DC 04/02/21 08:26 Valproic Acid (Depakene) 500 mg BID PO 04/02/21 21:00 04/28/21 20:05 Nystatin (Nystop) 1 belinda BID TP 04/03/21 21:00 04/28/21 20:06 Vitamin A/Vitamin D (Vitamin A & D Ointment) 1 belinda PRN Q1HR PRN TP SKIN PROTECTION 04/03/21 16:45 04/07/21 05:54 Quetiapine Fumarate (SEROquel) 12.5 mg 0900,1300,1700 PO 04/06/21 09:00 04/09/21 01:06 DC 04/08/21 17:03 Quetiapine Fumarate (SEROquel) 12.5 mg QID@0900,1200,1500,1700 PO 04/09/21 09:00 04/24/21 20:55 DC 04/24/21 17:21 Phenytoin Sodium (Dilantin) 300 mg 1700 PO 04/12/21 17:00 04/28/21 17:28 Potassium Chloride (Klor-Con) 20 meq 0800,1700 PO 04/12/21 17:00 04/28/21 17:28 Polyethylene Glycol (miraLAX) 17 gm PRN DAILY PRN PO 1ST CHOICE CONSTIPATION 04/12/21 16:45 Sertraline HCl (Zoloft) 100 mg DAILY PO 04/19/21 09:00 04/28/21 09:00 Benzocaine (Ora-Jel Maximum) 1 belinda PRN QID PRN TP ORAL PAIN 04/20/21 12:45 04/24/21 21:00 DC 04/20/21 14:55 Docusate Sodium (Colace Solution) 100 mg 1X ONCE PO 04/20/21 12:45 04/20/21 12:57 DC Psyllium Hydrophilic Mucilloid (Metamucil) 1 pkt DAILY PO 04/21/21 09:00 04/27/21 11:15 DC Levofloxacin (Levaquin) 250 mg DAILY06 PO 04/22/21 12:30 04/22/21 12:23 DC Levofloxacin (Levaquin) 250 mg DAILY06 PO 04/23/21 06:00 04/28/21 05:59 DC 04/27/21 05:41 Lactobacillus Rhamnosus (Culturelle) 1 cap BID PO 04/24/21 21:00 04/28/21 20:05 Quetiapine Fumarate (SEROquel) 25 mg DAILY PO 04/25/21 09:00 04/28/21 09:00 Quetiapine Fumarate (SEROquel) 25 mg 1700 PO 04/25/21 17:00 04/28/21 17:28 Neomycin/ Polymyxin/ Bacitracin (Triple Antibiotic Ointment) 1 pkt BID TP 04/26/21 10:15 04/28/21 20:06 Calcium Polycarbophil (Fibercon) 625 mg DAILY PO 04/28/21 09:00 04/28/21 09:00 Current Medications Medications (Trade) Dose Ordered Sig/Kassidy Route PRN Reason Start Time Stop Time Status Last Admin Dose Admin Calcium Polycarbophil (Fibercon) 625 mg DAILY PO 04/28/21 09:00 10/26/21 09:00 I have reviewed the current psychotropics carefully including drug interactions. Risk benefit ratio favors no change other than as noted in my dictated progress note. Diagnosis: Problems: (1) Major depressive disorder with psychotic features (2) Impulse control disorder, unspecified (3) Anxiety disorder, unspecified (4) Intellectual disability GAMALIEL MALLOY MD Apr 28, 2021 21:54
--- NOTE | 2021-04-29 00:29 | NUR ---
Nursing Note Pt more compliant this pm, takes meds in soda. Seems more animated, resistive with ADL's, but ultimately compliant.
[2021-04-29] MEDS ORDERED: VALP500S PO (02:01)
[2021-04-29] MEDS ORDERED: OLAN2.5T3 PO (03:52)
[2021-04-29] MEDS ORDERED: QUET25TA5 PO (03:54)
[2021-04-29] MEDS ORDERED: CALC625T12 PO (03:55)
[2021-04-29] MEDS ORDERED: MAGN24003 PO (03:56)
[2021-04-29] MEDS ORDERED: POLY17PO5 PO (03:58)
[2021-04-29] MEDS ORDERED: LACT1CAP19 PO (03:59)
[2021-04-29] MEDS ORDERED: NEOM28OI TP (04:00)
[2021-04-29] MEDS ORDERED: NYST60PO TP (04:02)
[2021-04-29] MEDS ORDERED: [UNRECOGNIZED DRUG - CODE] TP (04:05)
[2021-04-29] MEDS: LEVOTHYROXINE 50 MCG TABLET PO SCH (06:00)
[2021-04-29 06:26] VITALS: BP 130/81
[2021-04-29] MEDS: ZINC SULFATE 220 MG CAPSULE. PO SCH (08:15)
[2021-04-29] MEDS: LACTOBACILLUS RHAMNOSUS GG 1 CAPSULE. PO SCH (08:15)
[2021-04-29] MEDS: ASPIRIN CHEWABLE 81 MG TABLET. PO SCH (08:15)
[2021-04-29] MEDS: metOLazone 5 MG TABLET PO SCH (08:15)
[2021-04-29] MEDS: CALCIUM POLYCARBOPHIL 625 MG TABLET PO SCH (08:15)
[2021-04-29] MEDS: QUEtiapine 25 MG TABLET. PO SCH (08:15)
[2021-04-29] MEDS: ASCORBIC ACID 500 MG TABLET PO SCH (08:15)
[2021-04-29] MEDS: SERTRALINE 100 MG TABLET. PO SCH (08:15)
[2021-04-29] MEDS: MULTIVITAMIN with MINERAL TABLET. PO SCH (08:15)
[2021-04-29] MEDS: NEOMY/BACITR/POLYMYXIN OINT PACKET. TP SCH (08:16)
[2021-04-29] MEDS: CETIRIZINE HCL 10 MG TABLET PO SCH (08:16)
[2021-04-29] MEDS: NYSTATIN TOPICAL POWDER 15GM BOTTLE. TP SCH (08:16)
[2021-04-29] MEDS: VALPROATE ACID 250 MG/5 ML ORAL SOLUTION PO SCH (08:16)
[2021-04-29] MEDS: POTASSIUM CHLORIDE 20 MEQ TABLET.ER. PO SCH (08:16)
--- NOTE | 2021-04-29 13:21 | NUR ---
Transition Record was faxed to follow-up provider with the following elements: Reason for admission, procedures, tests, principal diagnosis, pending studies, patient instructions, 24/01 contact information for unit, phone number to obtain pending test results, plan for follow-up care, physician follow-up, advanced directive information, and medication list with dose, duration and instructions. This information was included in the following documents: History and physical, lab results, study results, progress notes, social work planning form, DC instruction form, patient visit summary, and medication reconciliation form. Date & time record faxed: 04/29/21 at [phone] Record faxed to: Mandy Miranda at [phone] Record discussed with/ report given to Roseann NEWMAN Discharged at 1305 via W/C accomp by transport personnel
--- NOTE | 2021-04-30 00:33 | PN ---
DATE: 04/28/2021 PSYCHIATRIC PROGRESS NOTE This late entry 04/28/2021 covers elements not covered in my initial note. SUBJECTIVE: I met with the patient on the evening of 04/28/2021. Discussed with Rae Hartmann RN. The patient has had no bowel movement and we are treating it symptomatically. Cough from yesterday is better today. REVIEW OF SYSTEMS: Ambulation impaired. No CV, , pulmonary, eye system symptoms on review. Reliability poor. MENTAL STATUS EXAMINATION: Oriented to herself. Insight, judgment, recent and remote memory, attention, concentration, fund of knowledge poor consistent with her diagnosis mentioned in my initial note. PLAN: No change from initial note. Continue Depakene, Seroquel, trazodone, Dilantin, melatonin and Remeron. DEZ DR: Matt TID: [id number]
--- NOTE | 2021-04-30 01:39 | PN ---
DATE: 04/27/2021 PSYCHIATRY PROGRESS NOTE This is a late entry 04/27, covers elements not covered in my initial note. I met with TRENT Fuller in the evening. SUBJECTIVE: The patient has been irritable, refusing her medications, these have to be syringed. The patient continues to have marked mood lability, poor oral intake. Labs are being monitored. We will check a valproic acid level in the morning. REVIEW OF SYSTEMS: Ambulation impaired, in wheelchair. No CV, , pulmonary, eye, ENT system symptoms on review. Reliability poor. MENTAL STATUS EXAMINATION: Oriented to herself. Insight, judgment, recent and remote memory, attention, concentration, fund of knowledge poor, consistent with her diagnosis. IMPRESSION: Unchanged for now. Check valproic acid level. KIM/RAFY/HAYLIE DR: Matt TID: [id number]
--- NOTE | 2021-04-30 08:53 | PDOC ---
Exam Note: Brooks Note: Late entry for 04/29/2021.Please also refer to the separate dictated note~for this date of service dictated separately.~Patient seen individually. Discussed the patient with Nursing staff reviewed the chart.~Reviewed interim history and current functioning. Reviewed vital signs,~Labs/ Radiology~and current medica tions noted below. Continue current treatment with the changes noted in the dictated addendum note Assessment: Vital Signs/I&O: Vital Signs Date Time Temp Pulse Resp B/P (MAP) Pulse Ox O2 Delivery O2 Flow Rate FiO2 04/29/21 06:26 98.1 59 18 130/81 (97) 98 04/28/21 05:42 Room Air I & O 04/29/21 04/29/21 04/30/21 15:00 23:00 07:00 Intake Total 480 ml Balance 480 ml Current Medications: I have reviewed the current psychotropics carefully including drug interactions. Risk benefit ratio favors no change other than as noted in my dictated progress note. Diagnosis: Problems: (1) Intellectual disability (2) Impulse control disorder, unspecified (3) Anxiety disorder, unspecified (4) Major depressive disorder with psychotic features GAMALIEL MALLOY MD Apr 30, 2021 08:53
--- NOTE | 2021-05-01 23:29 | DS ---
DATE OF DISCHARGE: 04/29/2021 DISCHARGE SUMMARY/PSYCHIATRIC PROGRESS NOTE This is a late entry, date of service 04/29/2021, covers the elements not covered in my initial note 04/29/2021. I had earlier dictated this discharge summary, but it cannot be found in the system, is being redictated. REASON FOR ADMISSION: Please refer to the admission history for details. Briefly, the patient is a 71-year-old female, who was referred to us from [facility]. She has a diagnosis of intellectual disability, mood swings, raising the question of bipolar disorder, history of major depressive disorder with psychotic features, impulse control, and anxiety disorder. She had been physically aggressive towards peers, was chasing peers, yelling, screaming, refusing medications. Behaviors were deemed dangerous, unmanageable, had failed outpatient psychiatric intervention, resulting in this referral. SIGNIFICANT FINDINGS AND CLINICAL COURSE: Following admission, the patient was seen daily individually by myself from a psychiatric standpoint, medical followup, Dr. Diaz/Dr. Marc. The patient was extremely anxious, labile, irritable, aggressive, disruptive at admission. Adjustments were made in her psychotropics. She seemed to respond to a combination of Depakene 500 mg b.i.d., valproic acid level therapeutic at 67, Seroquel 25 mg 0900, 1700, trazodone 50 mg at bedtime, Zoloft 100 mg a day, Dilantin for her seizures 300 mg at 1700, level was therapeutic. Melatonin 6 mg at bedtime, Remeron 7.5 mg at bedtime, Zyprexa p.r.n. The patient also had a UTI, which was treated on Levaquin, which ended on 04/27/2021. Gradually mood appeared to improve. She was less angry, aggressive, still somewhat labile in her mood, but manageable. REVIEW OF SYSTEMS: Prior to discharge on 04/29/2021, ambulation impaired, in wheelchair. No CV, , pulmonary, eye, ENT system symptoms on review. Reliability poor. MENTAL STATUS EXAMINATION: Oriented to herself. Insight, judgment, recent and remote memory, attention, concentration, fund of knowledge poor consistent with her diagnoses. FINAL DIAGNOSES: Major depressive disorder with psychotic features, intellectual disability, impulse control disorder, anxiety disorder, unspecified seizure disorder. Rest unchanged from admission. DISCHARGE MEDICATIONS: Please refer to the [facility]. DISCHARGE INSTRUCTIONS: Outpatient psychiatric and medical followup at the [facility]. YVONNE DR: Matt TID: [id number]
== END 2021-04-29 13:05 | disposition home or self-care (01) | DRG 885 ==
LOC: GEROPSY 15:10
PROVIDERS: ADMIT Psychiatry & Neurology Psychiatry; ATTEND Psychiatry & Neurology Psychiatry
DX: F32.3 Major depressive disorder, single episode, severe with psychotic features (principal); F01.51 Vascular dementia, unspecified severity, with behavioral disturbance; F79 Unspecified intellectual disabilities; F02.81 Dementia in other diseases classified elsewhere, unspecified severity, with behavioral disturbance; E03.9 Hypothyroidism, unspecified; E78.5 Hyperlipidemia, unspecified; F41.1 Generalized anxiety disorder; F63.9 Impulse disorder, unspecified; G30.9 Alzheimer's disease, unspecified; G40.909 Epilepsy, unspecified, not intractable, without status epilepticus; M81.0 Age-related osteoporosis without current pathological fracture
CPT/HCPCS: 36415; 80053; 80061; 80156; 80164; 80185; 81001; 82306; 82607; 83036; 83540; 83550; 83735; 84436; 84443; 84480; 85025; 85379; 86592; 87077; 87086; 87186; 90471; 90686; 93005